=== PATIENT | female | born 1935 | race Caucasian/White ===

== ENCOUNTER 2016-05-20 14:59 | Inpatient (IN) | payer OTHER ==
[2016-05-20] MEDS ORDERED: ALBUTEROL SO4 2.5/IPRATROPIUM 0.5 INH SOL 3 ML VIAL.NEB. NEB ONE ×2 (15:08→15:27)
[2016-05-20] MEDS ORDERED: MAGNESIUM SULF 50% (8.12 MEQ/2 ML-1 GM VIAL) ONE (15:08)
[2016-05-20] MEDS ORDERED: DEXAMETHASONE SOD PHOSPHATE 10 MG/1 ML VIAL ONE (15:16)
--- NOTE | 2016-05-20 15:19 | PDOC ---
History of Present Illness - General History Source: Patient Exam Limitations: No Limitations - History of Present Illness Initial Comments: 05/20/16 15:20 The patient is a 80 year old female, BIBA with a significant past medical history of asthma, cardiac stents, COPD, CHF, HTN, pacemaker, and afib, who presents to the emergency department with SOB. The EMS reports giving the patient one treatment of decadron en route to the hospital. She reports her SOB is often made worse with strenuous activity or when lying down flat. She also has chief complaints of dry cough. She denies recent fevers, chills, headache or dizziness. She denies recent nausea, vomit, diarrhea or constipation. She denies recent dysuria, frequency, urgency or hematuria. She denies recent chest pain. Allergies: Melatonin. See nursing notes. Past surgical history: See HPI. Appendectomy. Social history: Nonsmoker. Denies EtOH use and drug use. Primary Care Physician: <Stefano Villalpando - Last Filed: 05/20/16 16:42> - General History Source: Patient, EMS, Old Records Exam Limitations: Clinical Condition <KierrastevenIsa - Last Filed: 05/20/16 16:51> - General Stated Complaint: SOB Time Seen by Provider: 05/20/16 15:19 Past History <Stefano Villalpando - Last Filed: 05/20/16 16:42> - Past Medical History Anemia: Yes Asthma: Yes Cancer: Yes (esophageal) Cardiac Disorders: Yes (pacemaker,stents, afib) CVA: No COPD: Yes CHF: Yes Dementia: No Diabetes: No GI Disorders: Yes (REFLUX, gastric ulcers, GERD) Disorders: Yes (URINARY DRIBBLING) HTN: Yes Hypercholesterolemia: Yes Liver Disease: No Suicide Attempt (Hx): No Seizures: No Thyroid Disease: No - Surgical History Abdominal Surgery: Yes Appendectomy: Yes Cardiac Surgery: Yes (PACEMAKER 2010, stents) Cholecystectomy: No Lung Surgery: No Neurologic Surgery: No Orthopedic Surgery: No - Immunization History Td Vaccination: Yes Immunization Up to Date: Yes - Psycho/Social/Smoking Cessation Hx Anxiety: No Suicidal Ideation: No Smoking Status: No Smoking History: Former smoker Have you smoked in the past 12 months: No Number of Cigarettes Smoked Daily: 0 If you are a former smoker, when did you quit?: 2002 'Breaking Loose' booklet given: 12/11/13 Hx Alcohol Use: No Drug/Substance Use Hx: No Substance Use Type: None Hx Substance Use Treatment: No <Isa Jacob - Last Filed: 05/20/16 16:51> - Past Medical History Allergies/Adverse Reactions: Allergies Allergy/AdvReac Type Severity Reaction Status Date / Time melatonin Allergy Mild Nausea Verified 05/20/16 15:33 vancomycin AdvReac Mild Nausea Verified 05/20/16 15:33 zolpidem AdvReac Unknown Verified 05/20/16 15:33 zolpidem tartrate AdvReac Unknown Verified 05/20/16 15:33 [From Ambien] Home Medications: Ambulatory Orders Atorvastatin Ca [Lipitor] 10 mg PO HS 12/11/13 Digoxin [Digitek] 125 mcg PO DAILY 03/17/15 Diltiazem Cd [Cardizem Cd -] 180 mg PO DAILY 03/17/15 Hydralazine HCl [Apresoline -] 25 mg PO BID 03/17/15 Metoprolol Tartrate [Lopressor -] 25 mg PO DAILY 03/17/15 Sucralfate Oral Suspension [Carafate Oral Suspension -] 1 gm PO HS 03/17/15 Tiotropium [place] [Spiriva] 1 inh PO DAILY 03/17/15 Valsartan [Diovan] 320 mg PO DAILY 03/17/15 Budesonide/Formeterol Fumarate [SYMBICORT 160/4.5mcg -] 2 puff IH BID #1 inhaler 03/28/15 Furosemide [Lasix -] 40 mg PO BID #60 tablet 04/20/15 Magnesium Oxide [Mag-Ox -] 400 mg PO BID tablet 04/20/15 Metronidazole [Flagyl -] 500 mg PO TID 18 Days 04/20/15 Warfarin Na [Coumadin -] 1 mg PO DAILY@1800 tablet 04/20/15 Oxycodone HCl 5 mg PO Q6H #10 capsule MDD 4 07/27/15 Review of Systems - Review of Systems Able to Perform ROS?: Yes Comments:: 05/20/16 15:20 CONSTITUTIONAL: Absent: fever, no chills, no fatigue EYES: Absent: visual changes ENT: Absent: ear pain, no sore throat CARDIOVASCULAR: Absent: chest pain, no palpitations RESPIRATORY: + SOB and cough GI: Absent: abdominal pain, no nausea, no vomiting, no constipation, no diarrhea GENITOURINARY: Absent: dysuria, no frequency, no hematuria MUSKULOSKELETAL: Absent: back pain, no arthralgia, no myalgia SKIN: Absent: rash NEURO: Absent: headache <Stefano Villalpando - Last Filed: 05/20/16 16:42> *Physical Exam - Physical Exam Comments: 05/20/16 15:20 GENERAL: Well developed, well nourished. Awake and alert. No acute distress. HEENT: Normocephalic, atraumatic. PERRLA, EOMI. No conjunctival pallor. Sclera are non- icteric. Moist mucous membranes. Oropharynx is clear. NECK: Supple. Full ROM. No JVD. Carotid pulses 2+ and symmetric, without bruits. No thyromegaly. No lymphadenopathy. CARDIOVASCULAR: Regular rate and rhythm. No murmurs, rubs, or gallops. Distal pulses are 2+ and symmetric. PULMONARY: Accessory muscle use. In moderate respiratory distress. Fair air movement with expiratory wheezes in the bilateral lung dangelo. ABDOMINAL: Soft. Non-tender. Non-distended. No rebound or guarding. No organomegaly. Normoactive bowel sounds. MUSCULOSKELETAL Normal range of motion at all joints. No bony deformities or tenderness. No CVA tenderness. EXTREMITIES: No cyanosis. No clubbing. No edema. No calf tenderness. SKIN: Warm and dry. Normal capillary refill. No rashes. No jaundice. NEUROLOGICAL: Alert, awake, appropriate. Cranial nerves 2-12 intact. No deficits to light touch and temperature in face, upper extremities and lower extremities. No motor deficits in the in face, upper extremities and lower extremities. Normoreflexic in the upper and lower extremities. Normal speech. Toes are down- going bilaterally. Gait is normal without ataxia. PSYCHIATRIC: Cooperative. Good eye contact. Appropriate mood and affect. <Stefano Villalpando - Last Filed: 05/20/16 16:42> ED Treatment Course - LABORATORY CBC & Chemistry Diagram: 05/20/16 15:22 05/20/16 15:22 <Stefano Villalpando - Last Filed: 05/20/16 16:42> - LABORATORY CBC & Chemistry Diagram: 05/20/16 15:22 05/20/16 15:22 <Isa Jacob - Last Filed: 05/20/16 16:51> Medical Decision Making - Critical Care Time Total Critical Care Time (minutes): 30 Critical Care Statement: The care of this patient involved high complexity decision making to prevent further life threatening deterioration of the patient 's condition and/or to evalute & treat vital organ system(s) failure or risk of failure. <Stefano Villalpando - Last Filed: 05/20/16 16:42> - Medical Decision Making 05/20/16 15:25 80-year-old female with history of atrial fibrillation, pacemaker, on Coumadin, COPD, hypertension, CHF presents to the emergency department by EMS with complaints of shortness of breath since 4 AM this morning. The patient is in moderate respiratory distress with accessory muscle use and is speaking and abrupt 2-3 word sentences. Differential diagnosis includes but is not limited to : COPD exacerbation, CHF exacerbation, pneumonia, influenza, anemia, electrolyte abnormality, toxic/metabolic derangement, ACS. Plan: 1. The patient was placed on BiPAP for respiratory support 2. DuoNeb treatments 3. The patient received steroids in the field therefore will not give steroids in the emergency department 4. Magnesium sulfate 2 g IV 5. EKG 6. Chest x-ray 7. Eng culture 8. Observe and reevaluate 05/20/16 16:48 Addendum: The labs were reviewed and are noted in the EMR. CXR appears to be negative. Her temp was 10F orally. The plan is to admit to tele. Will send blood Cx and will give a dose of abx. <Isa Jacob - Last Filed: 05/20/16 16:51> *DC/Admit/Observation/Transfer - Attestations Scribe Attestion: 05/20/16 15:20 Documentation prepared by Stefano Villalpando, acting as medical interpreter for Isa Jacob MD. <Stefano Villalpando - Last Filed: 05/20/16 16:42> - Discharge Dispostion Admit: Yes - Attestations Physician Attestion: 05/20/16 15:25 I, Dr. Isa Jacob, attest that the scribes documentation that appears above has been prepared under my direction and personally reviewed by me in its entirety. I confirmed that the note above accurately reflects all work, treatment, procedures, and medical decision-making performed by me. <Isa Jacob - Last Filed: 05/20/16 16:51> Diagnosis at time of Disposition: Shortness of breath, COPD (chronic obstructive pulmonary disease) - Discharge Dispostion Condition at time of disposition: Stable - Referrals Referrals: Jeffery Byrd [Primary Care Provider] -
[2016-05-20] MEDS ORDERED: MAGNESIUM SULF 50% (8.12 MEQ/2 ML-1 GM VIAL) IVPB ONE (15:20)
[2016-05-20 15:32] LABS: BASOPHIL 0.5 % (0-2.0); EOSINOPHIL 0.4 % (0-4.5); MCH 30.2 pg (25.7-33.7); MEAN CELL VOLUME 91.5 fl (80-96); MEAN PLT VOLUME 8.9 fl (7.5-11.1); NEUTROPHILS 74.4 % (42.8-82.8); PLATELET COUNT 230 K/MM3 (134-434); RDW 15.2 % (11.6-15.6); WHITE BLOOD COUNT 12.9 K/mm3 (4.0-10.0)
[2016-05-20] MEDS: ALBUTEROL SO4 2.5/IPRATROPIUM 0.5 INH SOL 3 ML VIAL.NEB. NEB SCH ×4 (15:36→23:50)
[2016-05-20 15:44] LABS: INR 1.88 (0.82-1.09); PROTHROMBIN TIME (PATIENT) 20.9 SEC (9.98-11.88)
[2016-05-20 15:49] LABS: ARTERIAL BLD GAS O2 SATURATION 99.9 % (90-98.9); ARTERIAL BLOOD GAS BASE EXCESS 1.7 meq/l (-2-2); ARTERIAL BLOOD GAS HCO3 24.8 meq/L (22-26)
[2016-05-20 15:50] LABS: ALLENS TEST POSITIVE; ART PUNCT SITE LEFT RADIAL; LPM/O2% 30%; PT. ON O2? YES
[2016-05-20 15:51] LABS: MECH. VENT. BIPAP; TYPE OF O2 BIPAP; VENT RATE 12
[2016-05-20 15:52] LABS: ARTERIAL BLOOD GAS pH 7.46 (7.35-7.45)
[2016-05-20 15:53] LABS: METHEMOGLOBIN 0.2 % (0.4-1.5)
[2016-05-20 15:56] LABS: ALBUMIN 3.6 g/dl (3.4-5.0); BILIRUBIN,TOTAL 0.6 mg/dL (0.2-1.0); CALCIUM 8.5 mg/dL (8.5-10.1); CREATININE 1.2 mg/dL (0.55-1.02); TOT PROT 7.1 g/dl (6.4-8.2)
[2016-05-20 15:57] LABS: TROPONIN I < 0.02 ng/ml (0.00-0.05)
[2016-05-20 16:01] VITALS: BMI 24.7
[2016-05-20] MEDS ORDERED: LEVOFLOXACIN 750 MG IVPB 150 ML IVPB ONE ×2 (16:52→17:54)
--- NOTE | 2016-05-20 17:53 | HP ---
CHIEF COMPLAINT: Shortness of breath PCP: Dr. Larson HISTORY OF PRESENT ILLNESS: 78 year-old female with a PMH of HTN, HLD, CAD, tachy/maricruz syndrome s/p PPM, afib on coumadin, PAD s/p RLE bypass, asthma/COPD, PUD, GERD, recent c.diff, esophageal cancer s/p laser therapy, and anxiety. Patient reports being SOB and with a dry cough x 1 month. She attributes this to a pharmacy change in her inhalers which she feels are not effective. Patient had a sudden worsening of her SOB at 4am today when she awoke from sleep. She tried her inhalers but got not relief. She activated EMS who gave her a dose of decadron in the field. Patient denies fever, sweats, chills. She denies n/v/d/c. She denies chest pain , palpitations, orthopnea, and lower extremity edema. ER course was notable for: (1) Tm 100.0, BP 163/98, p88, RR 40 (2) WBC 12.9k, cough with thick yellow sputum (3) BIPAP, duonebs, steroids given by EMS, Mg 2g x 1 Recent Travel: No PAST MEDICAL HISTORY: Hypertension Hyperlipidemia Coronary artery disease Diastolic heart failure Atrial fibrillation on coumadin Tachy/maricruz syndrome s/p PPM Peripheral arterial disease s/p RLE bypass Esophageal cancer s/p laser treatment C. diff Anxiety PAST SURGICAL HISTORY: Appendectomy Hysterectomy Permanent Pacemaker Social History: Smoking: former Alcohol: no Drugs: no Family History: non-contributory Allergies melatonin Allergy (Mild, Verified 05/20/16 15:33) Nausea doesn't agree with me vancomycin Adverse Reaction (Mild, Verified 05/20/16 15:33) Nausea zolpidem Adverse Reaction (Unknown, Verified 05/20/16 15:33) zolpidem tartrate [From Ambien] Adverse Reaction (Unknown, Verified 05/20/16 15: 33) Home Medications Medication Instructions Recorded Atorvastatin Ca [Lipitor] 10 mg PO HS 12/11/13 Digoxin [Digitek] 125 mcg PO DAILY 03/17/15 Diltiazem Cd [Cardizem Cd -] 180 mg PO DAILY 03/17/15 Hydralazine HCl [Apresoline -] 25 mg PO BID 03/17/15 Metoprolol Tartrate [Lopressor -] 25 mg PO DAILY 03/17/15 Sucralfate Oral Suspension 1 gm PO HS 03/17/15 [Carafate Oral Suspension -] Tiotropium [place] [Spiriva] 1 inh PO DAILY 03/17/15 Valsartan [Diovan] 320 mg PO DAILY 03/17/15 Budesonide/Formeterol Fumarate 2 puff IH BID #1 inhaler 03/28/15 [SYMBICORT 160/4.5mcg -] Furosemide [Lasix -] 40 mg PO BID #60 tablet 04/20/15 Magnesium Oxide [Mag-Ox -] 400 mg PO BID tablet 04/20/15 Metronidazole [Flagyl -] 500 mg PO TID 18 Days 04/20/15 Warfarin Na [Coumadin -] 1 mg PO DAILY@1800 tablet 04/20/15 Oxycodone HCl 5 mg PO Q6H #10 capsule MDD 4 07/27/15 REVIEW OF SYSTEMS CONSTITUTIONAL: Absent: fever, chills, diaphoresis, generalized weakness, malaise, loss of appetite, weight change HEENT: Absent: rhinorrhea, nasal congestion, throat pain, throat swelling, difficulty swallowing, mouth swelling, ear pain, eye pain, visual changes CARDIOVASCULAR: Absent: chest pain, syncope, palpitations, irregular heart rate, lightheadedness , peripheral edema RESPIRATORY: Present: cough with thick yellow sputum, SOB Absent: dyspnea with exertion, orthopnea, wheezing, stridor, hemoptysis GASTROINTESTINAL: Absent: abdominal pain, abdominal distension, nausea, vomiting, diarrhea, constipation, melena, hematochezia GENITOURINARY: Absent: dysuria, frequency, urgency, hesitancy, hematuria, flank pain, genital pain MUSCULOSKELETAL: Absent: myalgia, arthralgia, joint swelling, back pain, neck pain SKIN: Absent: rash, itching, pallor HEMATOLOGIC/IMMUNOLOGIC: Absent: easy bleeding, easy bruising, lymphadenopathy, frequent infections ENDOCRINE: Absent: unexplained weight gain, unexplained weight loss, heat intolerance, cold intolerance NEUROLOGIC: Absent: headache, focal weakness or paresthesias, dizziness, unsteady gait, seizure, mental status changes, bladder or bowel incontinence PSYCHIATRIC: Absent: anxiety, depression, suicidal or homicidal ideation, hallucinations. PHYSICAL EXAMINATION GENERAL: Awake, alert, and fully oriented, in no acute distress. HEAD: Normal with no signs of trauma. EYES: Pupils equal, round and reactive to light, extraocular movements intact, sclera anicteric, conjunctiva clear. No lid lag. EARS, NOSE, THROAT: Ears normal, nares patent, oropharynx clear without exudates. Moist mucous membranes. NECK: Normal range of motion, supple without lymphadenopathy, JVD, or masses. LUNGS: Mild wheezing LLL; bibasilar crackles; + accessory muscle use. HEART: Irregular, S1 and S2 without murmur, rub or gallop. ABDOMEN: Soft, nontender, not distended, normoactive bowel sounds, no guarding, no rebound, no masses. No hepatomegaly or splenomegaly. MUSCULOSKELETAL: Normal range of motion at all joints. No bony deformities or tenderness. No CVA tenderness. UPPER EXTREMITIES: 2+ pulses, warm, well-perfused. No cyanosis. No clubbing. No peripheral edema. LOWER EXTREMITIES: 2+ pulses, warm, well-perfused. No calf tenderness. No peripheral edema. NEUROLOGICAL: Cranial nerves II-XII intact. Normal speech. Laboratory Results - last 24 hr 05/20/16 05/20/16 05/20/16 15:22 15:22 15:22 WBC 12.9 H D RBC 3.44 L Hgb 10.4 L Hct 31.5 L MCV 91.5 MCHC 33.0 RDW 15.2 Plt Count 230 D MPV 8.9 D Neutrophils % 74.4 D Lymphocytes % 13.8 Monocytes % 10.9 H Eosinophils % 0.4 Basophils % 0.5 D INR PTT (Actin FS) 34.4 D Puncture Site ABG pH ABG pCO2 at Pt Temp ABG pO2 at Pt Temp ABG HCO3 ABG O2 Sat (Measured) ABG O2 Content ABG Base Excess Gil Test Carboxyhemoglobin Methemoglobin O2 Delivery Device Oxygen Flow Rate Vent Mode Vent Rate Mechanical Rate PEEP Pressure Support Vent Sodium 139 Potassium 3.8 Chloride 101 Carbon Dioxide 28 D Anion Gap 10 BUN 19 H D Creatinine 1.2 H D Creat Clearance w eGFR 43.23 Random Glucose 129 H D Lactic Acid Calcium 8.5 Total Bilirubin 0.6 AST 26 D ALT 27 D Alkaline Phosphatase 90 D Creatine Kinase Troponin I Total Protein 7.1 D Albumin 3.6 D Urine Color Urine Appearance Urine pH Ur Specific [place] Urine Protein Urine Glucose (UA) Urine Ketones Urine Blood Urine Nitrite Urine Bilirubin Urine Urobilinogen Ur Leukocyte Esterase Urine RBC Urine WBC Ur Epithelial Cells Hyaline Casts Urine Mucus Blood Type Antibody Screen 05/20/16 05/20/16 05/20/16 15:22 15:22 15:22 WBC RBC Hgb Hct MCV MCHC RDW Plt Count MPV Neutrophils % Lymphocytes % Monocytes % Eosinophils % Basophils % INR 1.88 H PTT (Actin FS) Puncture Site ABG pH ABG pCO2 at Pt Temp ABG pO2 at Pt Temp ABG HCO3 ABG O2 Sat (Measured) ABG O2 Content ABG Base Excess Gil Test Carboxyhemoglobin Methemoglobin O2 Delivery Device Oxygen Flow Rate Vent Mode Vent Rate Mechanical Rate PEEP Pressure Support Vent Sodium Potassium Chloride Carbon Dioxide Anion Gap BUN Creatinine Creat Clearance w eGFR Random Glucose Lactic Acid 0.983 Calcium Total Bilirubin AST ALT Alkaline Phosphatase Creatine Kinase 115 Troponin I < 0.02 Total Protein Albumin Urine Color Urine Appearance Urine pH Ur Specific [place] Urine Protein Urine Glucose (UA) Urine Ketones Urine Blood Urine Nitrite Urine Bilirubin Urine Urobilinogen Ur Leukocyte Esterase Urine RBC Urine WBC Ur Epithelial Cells Hyaline Casts Urine Mucus Blood Type Antibody Screen 05/20/16 05/20/16 05/20/16 15:22 15:42 15:42 WBC RBC Hgb Hct MCV MCHC RDW Plt Count MPV Neutrophils % Lymphocytes % Monocytes % Eosinophils % Basophils % INR PTT (Actin FS) Puncture Site Left radial ABG pH 7.46 H ABG pCO2 at Pt Temp 35.1 ABG pO2 at Pt Temp 160.0 H* D ABG HCO3 24.8 ABG O2 Sat (Measured) 99.9 H* ABG O2 Content 13.8 L ABG Base Excess 1.7 Gil Test Positive Carboxyhemoglobin 1.9 Methemoglobin 0.2 L O2 Delivery Device Bipap Oxygen Flow Rate 30% Vent Mode S/t Vent Rate 12 Mechanical Rate Bipap PEEP 0.0 Pressure Support Vent 10/5 Sodium Potassium Chloride Carbon Dioxide Anion Gap BUN Creatinine Creat Clearance w eGFR Random Glucose Lactic Acid Calcium Total Bilirubin AST ALT Alkaline Phosphatase Creatine Kinase Troponin I Total Protein Albumin Urine Color Urine Appearance Urine pH Ur Specific [place] Urine Protein Urine Glucose (UA) Urine Ketones Urine Blood Urine Nitrite Urine Bilirubin Urine Urobilinogen Ur Leukocyte Esterase Urine RBC Urine WBC Ur Epithelial Cells Hyaline Casts Urine Mucus Blood Type A POSITIVE Antibody Screen Negative 05/20/16 05/20/16 18:31 18:40 WBC RBC Hgb Hct MCV MCHC RDW Plt Count MPV Neutrophils % Lymphocytes % Monocytes % Eosinophils % Basophils % INR PTT (Actin FS) Puncture Site ABG pH ABG pCO2 at Pt Temp ABG pO2 at Pt Temp ABG HCO3 ABG O2 Sat (Measured) ABG O2 Content ABG Base Excess Gil Test Carboxyhemoglobin Methemoglobin O2 Delivery Device Oxygen Flow Rate Vent Mode Vent Rate Mechanical Rate PEEP Pressure Support Vent Sodium Potassium Chloride Carbon Dioxide Anion Gap BUN Creatinine Creat Clearance w eGFR Random Glucose Lactic Acid 2.251 H* Calcium Total Bilirubin AST ALT Alkaline Phosphatase Creatine Kinase Troponin I Total Protein Albumin Urine Color Ltyellow Urine Appearance Clear Urine pH 5.0 Ur Specific [place] 1.013 Urine Protein 1+ H Urine Glucose (UA) Negative Urine Ketones Negative Urine Blood Negative Urine Nitrite Negative Urine Bilirubin Negative Urine Urobilinogen Negative Ur Leukocyte Esterase Negative Urine RBC 4 Urine WBC 2 Ur Epithelial Cells Rare Hyaline Casts 88 Urine Mucus Rare Blood Type Antibody Screen 03/24/15 Echo: LV normal; RV normal; ANKITA; mild MR; mild TR; mild pHTN ASSESSMENT/PLAN: 78 year-old female with a PMH of HTN, HLD, CAD, diastolic heart failure, tachy/ maricruz syndrome s/p PPM, afib on coumadin, PAD s/p RLE bypass, asthma/COPD, PUD, GERD, recent c.diff, esophageal cancer s/p laser therapy, and anxiety. Admitted for shortness of breath, orthopnea, non-productive cough. Sepsis of uncertain etiology Lactic acidosis --low grade fever, WBC 12.9, RR 40, lactic acid 2.2 --CXR discussed with Dr. Mooney, no obvious infiltrate; no overt pulmonary congestion, mild Love-B lines --cannot give macrolides since patient on digoxin --continue levofloxacin but very close monitoring of INR since patient on warfarin --very gentle fluids to address lactic acidosis --titrate O2 to 88-->92%; satting 95% on 3LNC COPD exacerbation --PaCO2 35 on BIPAP; continue BIPAP PRN --continue Symbicort, Tudorza --duonebs QID --Dr. Rivera is regular director loss prevention, consult requested Acute on chronic diastolic heart failure --hold diuretics due to sepsis, lactic acidosis Atrial fibrillation --rate controlled continue metoprolol, digoxin, diltiazem --INR slightly subtherapeutic on current coumadin dosing, repeat in am --dig level pending Hypertension --continue Valsartan, metoprolol, diltiazem, digoxin, hydralazine Tachy/maricruz syndrome s/p PPM --telemetry monitoring Hyperlipidemia --continue Lipitor Peripheral arterial disease s/p RLE bypass --stable CAD --equivocal MIBI in 2011 --no angina Peptic ulcer disease GERD --stable DVT prophylaxis: on coumadin Visit type - Emergency Visit Emergency Visit: Yes ED Registration Date: 05/20/16 Care time: The patient presented to the Emergency Department on the above date and was hospitalized for further evaluation of their emergent condition. - New Patient This patient is new to me today: Yes Date on this admission: 05/20/16 - Critical Care Critical Care patient: No
[2016-05-20 18:52] LABS: URINE APPEARANCE CLEAR; URINE BILIRUBIN NEGATIVE (NEGATIVE); URINE BLOOD NEGATIVE (NEGATIVE); URINE COLOR LTYELLOW; URINE GLUCOSE (UA) NEGATIVE (NEGATIVE); URINE KETONE NEGATIVE (NEGATIVE); URINE LEUK ESTERASE NEGATIVE (NEGATIVE); URINE NITRITE NEGATIVE (NEGATIVE); URINE PROTEIN 1+ (NEGATIVE); URINE UROBILINOGEN NEGATIVE E.U./dl (0.2-1.0)
[2016-05-20 18:55] LABS: URINE HYALINE CAST 88 /lpf; URINE MUCUS RARE; URINE RBC 4 /hpf (0-3); URINE WBC 2 /hpf (3-5)
[2016-05-20] MEDS ORDERED: FUROSEMIDE 40 MG TABLET (FP) PO SCH (22:00)
[2016-05-20] MEDS ORDERED: SODIUM CHLORIDE 1,000 ML IV SCH ×2 (22:00→22:34)
[2016-05-20] MEDS: SUCRALFATE 1 GM/10 ML UNIT DOSE CUPS PO SCH (23:35)
[2016-05-20] MEDS: hydrALAZINE HCL 25 MG TABLET (FP) PO SCH (23:41)
[2016-05-20] MEDS: BUDESONIDE/FORMETEROL FUMARATE 160/4.5 mcg INHALER IH SCH (23:42)
[2016-05-20] MEDS: ACLIDINIUM BROMIDE 400 MCG/INH AERO.POWD IH SCH (23:42)
[2016-05-20] MEDS: HEPARIN NA (PORCINE) 5,000 UNITS/ML 1ML VIAL SQ SCH (23:42)
[2016-05-20] MEDS: ATORVASTATIN CA 10 MG TABLET (FP) PO SCH (23:42)
[2016-05-21] MEDS: ALBUTEROL SO4 2.5/IPRATROPIUM 0.5 INH SOL 3 ML VIAL.NEB. NEB SCH ×4 (06:40→23:52)
[2016-05-21 07:02] LABS: BASOPHIL 0.2 % (0-2.0); MCH 30.6 pg (25.7-33.7); MCHC 33.2 g/dl (32.0-36.0); MEAN CELL VOLUME 92.3 fl (80-96); MEAN PLT VOLUME 9.4 fl (7.5-11.1); PLATELET COUNT 208 K/MM3 (134-434); RDW 15.4 % (11.6-15.6); WHITE BLOOD COUNT 5.9 K/mm3 (4.0-10.0)
[2016-05-21 07:14] LABS: ALBUMIN 3.2 g/dl (3.4-5.0); ANION GAP 10 (8-16); CALCIUM 8.4 mg/dL (8.5-10.1); CO2 27 mmol/L (21-32); CREATININE 1.2 mg/dL (0.55-1.02); GLUCOSE,RANDOM 149 mg/dL (74-106); MAGNESIUM 2.9 mg/dL (1.8-2.4); PHOSPHOROUS 3.8 mg/dL (2.5-4.9); SGOT/AST 24 U/L (15-37); SGPT/ALT 24 U/L (12-78)
[2016-05-21 07:27] LABS: ALK PHOS 77 U/L (45-117); BILIRUBIN,TOTAL 0.4 mg/dL (0.2-1.0); DIGOXIN LEVEL 1.3419 ng/ml (0.8-2.0); TOT PROT 6.7 g/dl (6.4-8.2)
[2016-05-21 07:37] LABS: INR 2.01 (0.82-1.09); PROTHROMBIN TIME (PATIENT) 22.4 SEC (9.98-11.88)
[2016-05-21 09:10] LABS: ALLENS TEST POSITIVE; ART PUNCT SITE RIGHT RADIAL; ARTERIAL BLD GAS O2 SATURATION 95.6 % (90-98.9); ARTERIAL BLOOD GAS BASE EXCESS 1.8 meq/l (-2-2); ARTERIAL BLOOD GAS HCO3 25.7 meq/L (22-26); ARTERIAL BLOOD GAS PO2 76.4 mmHg (68-100); LPM/O2% 2L; PT. ON O2? YES; TYPE OF O2 NASAL O2
[2016-05-21 09:11] LABS: ARTERIAL BLOOD GAS pH 7.43 (7.35-7.45)
[2016-05-21] MEDS: methylPREDNISolone NA SUCC 40 MG/1 ML VIAL IVPB SCH ×3 (09:24→20:56)
[2016-05-21] MEDS: HEPARIN NA (PORCINE) 5,000 UNITS/ML 1ML VIAL SQ SCH ×2 (09:25→21:09)
[2016-05-21] MEDS: oxyCODONE HCL 5 MG TABLET PO PRN ×2 (09:25→20:55)
[2016-05-21] MEDS: VALSARTAN 160 MG TABLET (UD) PO SCH (09:26)
[2016-05-21] MEDS: DIGOXIN 0.125 MG TABLET (FP) PO SCH (09:27)
[2016-05-21] MEDS: hydrALAZINE HCL 25 MG TABLET (FP) PO SCH ×2 (09:27→21:09)
[2016-05-21] MEDS: METOPROLOL TARTRATE 25 MG TABLET (FP) PO SCH (09:27)
[2016-05-21] MEDS: CEFTRIAXONE 50 ML IVPB SCH (09:27)
[2016-05-21] MEDS: BUDESONIDE/FORMETEROL FUMARATE 160/4.5 mcg INHALER IH SCH ×2 (09:28→21:11)
[2016-05-21] MEDS: ACLIDINIUM BROMIDE 400 MCG/INH AERO.POWD IH SCH (09:28)
[2016-05-21] MEDS ORDERED: LEVOFLOXACIN 750 MG IVPB 150 ML IVPB ONE ×2 (10:00)
[2016-05-21] MEDS ORDERED: FUROSEMIDE 40 MG/4 ML INJECTABLE VIAL IVPUSH SCH (10:00)
--- NOTE | 2016-05-21 11:05 | CON.CARD ---
Cardiology Consult (text) - Consultation Consultation Note: cc: sob hpi: 80 f hx afib on coumadin, htn, hld, tachy/maricruz syndrome s/p ppm, copd, pad s/p rle bypass, possible cad (equivocal MIBI), chronic sob/briones/palps likely related to anxiety, esophageal ca s/p laser treatment, here with sob. Past few days has noticed sob, tried her inhalers at home but sob worse so came to ER. Also with body aches including some central cp worse with deep breaths and coughing. Has been coughing up yellow sputum as well. No palps, dizzy, loc, pnd, orthopnea, le edema. After treating for copd feeling a little better today. Sees Dr Torres for Cardio. pmh/psh: per hpi, ppm ros: per hpi; no fever, nvd, morton, vision changes, gib, hematuria, nasal congestion social: no tob fam: nc meds: Home Medications Medication Instructions Recorded Atorvastatin Ca [Lipitor] 10 mg PO HS 12/11/13 Digoxin [Digitek] 125 mcg PO DAILY 03/17/15 Diltiazem Cd [Cardizem Cd -] 180 mg PO DAILY 03/17/15 Hydralazine HCl [Apresoline -] 25 mg PO BID 03/17/15 Metoprolol Tartrate [Lopressor -] 25 mg PO DAILY 03/17/15 Valsartan [Diovan] 320 mg PO DAILY 03/17/15 Furosemide [Lasix -] 40 mg PO BID #60 tablet 04/20/15 Magnesium Oxide [Mag-Ox -] 400 mg PO BID tablet 04/20/15 Warfarin Na [Coumadin -] 1 mg PO DAILY@1800 tablet 04/20/15 Sertraline HCl [Zoloft -] 25 mg PO DAILY 05/20/16 pe: Vital Signs Period Temp Pulse Resp BP Sys/Wahl Pulse Ox Last 24 Hr 97.8 F-100.0 F 70-94 16-40 104-163/52-98 90-100 nad, no jvd rrr s1s2 no mrg mild exp wheezing, dec air movement, nl eff aaox3 no le e/c/c no diaphoresis/jaundice pos dp/pt abd nt nd pos bs Laboratory Last Values WBC 5.9 K/mm3 (4.0-10.0) D 05/21/16 06:00 RBC 3.22 M/mm3 (3.60-5.2) L 05/21/16 06:00 Hgb 9.9 GM/dL (10.7-15.3) L 05/21/16 06:00 Hct 29.7 % (32.4-45.2) L 05/21/16 06:00 MCV 92.3 fl (80-96) 05/21/16 06:00 MCHC 33.2 g/dl (32.0-36.0) 05/21/16 06:00 RDW 15.4 % (11.6-15.6) 05/21/16 06:00 Plt Count 208 K/MM3 (134-434) 05/21/16 06:00 MPV 9.4 fl (7.5-11.1) 05/21/16 06:00 Neutrophils % 92.0 % (42.8-82.8) H D 05/21/16 06:00 Lymphocytes % 4.3 % (8-40) L D 05/21/16 06:00 Monocytes % 3.5 % (3.8-10.2) L 05/21/16 06:00 Eosinophils % 0.0 % (0-4.5) D 05/21/16 06:00 Basophils % 0.2 % (0-2.0) 05/21/16 06:00 INR 2.01 (0.82-1.09) H 05/21/16 06:00 PTT (Actin FS) 34.4 SECONDS (26.9-34.4) D 05/20/16 15:22 Puncture Site Right radial 05/21/16 08:58 ABG pH 7.43 (7.35-7.45) 05/21/16 08:58 ABG pCO2 at Pt Temp 39.8 mmHg (35-45) 05/21/16 08:58 ABG pO2 at Pt Temp 76.4 mmHg (68-100) D 05/21/16 08:58 ABG HCO3 25.7 meq/L (22-26) 05/21/16 08:58 ABG O2 Sat (Measured) 95.6 % (90-98.9) 05/21/16 08:58 ABG O2 Content 14.2 % vol (15-22) L 05/21/16 08:58 ABG Base Excess 1.8 meq/l (-2-2) 05/21/16 08:58 Gli Test Positive 05/21/16 08:58 Carboxyhemoglobin 1.9 gm% (0.5-2.0) 05/20/16 15:42 Methemoglobin 0.2 % (0.4-1.5) L 05/20/16 15:42 O2 Delivery Device Nasal o2 05/21/16 08:58 Oxygen Flow Rate 2l 05/21/16 08:58 Vent Mode S/t 05/20/16 15:42 Vent Rate 12 05/20/16 15:42 Mechanical Rate Bipap 05/20/16 15:42 PEEP 0.0 cmH2O 05/20/16 15:42 Pressure Support Vent 11/1305/20/16 15:42 Sodium 137 mmol/L (136-145) 05/21/16 06:00 Potassium 4.1 mmol/L (3.5-5.1) 05/21/16 06:00 Chloride 100 mmol/L (98-107) 05/21/16 06:00 Carbon Dioxide 27 mmol/L (21-32) 05/21/16 06:00 Anion Gap 10 (8-16) 05/21/16 06:00 BUN 22 mg/dL (7-18) H 05/21/16 06:00 Creatinine 1.2 mg/dL (0.55-1.02) H 05/21/16 06:00 Creat Clearance w eGFR 43.23 (>60) 05/21/16 06:00 Random Glucose 149 mg/dL (74-106) H 05/21/16 06:00 Lactic Acid 0.973 mmol/L (0.4-2.0) 05/21/16 06:00 Calcium 8.4 mg/dL (8.5-10.1) L 05/21/16 06:00 Phosphorus 3.8 mg/dL (2.5-4.9) D 05/21/16 06:00 Magnesium 2.9 mg/dL (1.8-2.4) H D 05/21/16 06:00 Total Bilirubin 0.4 mg/dL (0.2-1.0) D 05/21/16 06:00 AST 24 U/L (15-37) 05/21/16 06:00 ALT 24 U/L (12-78) 05/21/16 06:00 Alkaline Phosphatase 77 U/L (45-117) 05/21/16 06:00 Creatine Kinase 115 IU/L (26-192) 05/20/16 15:22 Troponin I < 0.02 ng/ml (0.00-0.05) 05/21/16 00:51 Total Protein 6.7 g/dl (6.4-8.2) 05/21/16 06:00 Albumin 3.2 g/dl (3.4-5.0) L 05/21/16 06:00 Urine Color Ltyellow 05/20/16 18:40 Urine Appearance Clear 05/20/16 18:40 Urine pH 5.0 (5.0-8.0) 05/20/16 18:40 Ur Specific [place] 1.013 (1.001-1.035) 05/20/16 18:40 Urine Protein 1+ (NEGATIVE) H 05/20/16 18:40 Urine Glucose (UA) Negative (NEGATIVE) 05/20/16 18:40 Urine Ketones Negative (NEGATIVE) 05/20/16 18:40 Urine Blood Negative (NEGATIVE) 05/20/16 18:40 Urine Nitrite Negative (NEGATIVE) 05/20/16 18:40 Urine Bilirubin Negative (NEGATIVE) 05/20/16 18:40 Urine Urobilinogen Negative E.U./dl (0.2-1.0) 05/20/16 18:40 Ur Leukocyte Esterase Negative (NEGATIVE) 05/20/16 18:40 Urine RBC 4 /hpf (0-3) 05/20/16 18:40 Urine WBC 2 /hpf (3-5) 05/20/16 18:40 Ur Epithelial Cells Rare /hpf (FEW) 05/20/16 18:40 Hyaline Casts 88 /lpf 05/20/16 18:40 Urine Mucus Rare 05/20/16 18:40 Digoxin 1.3419 ng/ml (0.8-2.0) 05/21/16 06:00 Blood Type A POSITIVE 05/20/16 15:22 Antibody Screen Negative 05/20/16 15:22 echo 01/2014: nl lv, nl rv, mild mr, mild tr, rvsp 43 cxr: no chf ecg 05/20/16, 05/21/16: afib, rate controlled, occ vpacing, nonspecific st-t changes tele: afib, rate ok, occ vpacing Assessment/Plan 80 f hx afib on coumadin, htn, hld, tachy/maricruz syndrome s/p ppm, copd, pad s/p rle bypass, possible cad (equivocal MIBI), chronic sob/briones/palps likely related to anxiety, esophageal ca s/p laser treatment, here with sob. sob: -current presentation seems more related to copd than chf -no signs vol overload, and dry based on bun/cr -no signs acs, ce's neg x2 -cont tx copd per pmd/pulm chronic diast CHF: -seems stable presently, dry wt in 130s -dry based on bun/cr so holding lasix for now. when cr stable resume home lasix 40 bid afib: -Rate controlled on dilt plus low dose metopr and dig (dig level ok here) -cont AC with warfarin per inr htn: -controlled on current meds tachy/maricruz syndrome s/p ppm: - Stable, cont routine outpt checks pad s/p rle bypass: -Stable, no claudication. possible cad (equivocal MIBI): -No angina, continue medical management (statin, BB, ARB...no ASA (on AC))
[2016-05-21 12:43] LABS: TROPONIN I < 0.02 ng/ml (0.00-0.05)
--- NOTE | 2016-05-21 13:00 | CON.PULM ---
Consult - History of Present Illness Chief Complaint: Shortness of breath History of Present Illness: 80 year old lady with increasing dyspnea early A.M. of admission unresponsive to albuterol. Required BiPAP in ER. Denies chest pain or palpitations. Some increase in sputum, possible fever PMH is significant for history of COPD, CAD, HTN, A. Fib on AC, PPM, PVD (S/P multiple stents in lower extremities). In 2013 pt had an episode respiratory failure requiring BIPAP and ICU monitoring but didn't require intubation. - History Source History Provided By: Patient, Medical Record Limitations to Obtaining History: No Limitations - Past Medical History Cardio/Vascular: Yes: AFIB, CAD, HTN, Hyperlipdemia Pulmonary: Yes: COPD ...: No Infectious Disease: Yes: C-Diff Musculoskeletal: Yes: Osteoarthritis - Past Surgical History Past Surgical History: Yes: Appendectomy, Hysterectomy, Permanent Pacemaker - Alcohol/Substance Use Hx Alcohol Use: No - Smoking History Smoking history: Former smoker Have you smoked in the past 12 months: No Aproximately how many cigarettes per day: 0 If you are a former smoker, when did you quit?: 2002 - Social History Usual Living Arrangement: Alone ADL: Independent History of Recent Travel: No Home Medications - Allergies Allergies/Adverse Reactions: Allergies Allergy/AdvReac Type Severity Reaction Status Date / Time melatonin Allergy Mild Nausea Verified 05/20/16 15:33 vancomycin AdvReac Mild Nausea Verified 05/20/16 15:33 zolpidem AdvReac Unknown Verified 05/20/16 15:33 zolpidem tartrate AdvReac Unknown Verified 05/20/16 15:33 [From [facility]] - Home Medications Home Medications: Ambulatory Orders Atorvastatin Ca [Lipitor] 10 mg PO HS 12/11/13 Digoxin [Digitek] 125 mcg PO DAILY 03/17/15 Diltiazem Cd [Cardizem Cd -] 180 mg PO DAILY 03/17/15 Hydralazine HCl [Apresoline -] 25 mg PO BID 03/17/15 Metoprolol Tartrate [Lopressor -] 25 mg PO DAILY 03/17/15 Valsartan [Diovan] 320 mg PO DAILY 03/17/15 Furosemide [Lasix -] 40 mg PO BID #60 tablet 04/20/15 Magnesium Oxide [Mag-Ox -] 400 mg PO BID tablet 04/20/15 Warfarin Na [Coumadin -] 1 mg PO DAILY@1800 tablet 04/20/15 Sertraline HCl [Zoloft -] 25 mg PO DAILY 05/20/16 Review of Systems - Review of Systems Constitutional: denies: Chills, Fever Cardiovascular: reports: Shortness of Breath. denies: Chest Pain, Edema, Palpitations Respiratory: reports: Cough, SOB, Wheezing. denies: Hemoptysis Gastrointestinal: denies: Abdominal Pain, Diarrhea, Vomiting Neurological: denies: Change in LOC, Confusion Physical Exam Vital Sings: Vital Signs Temperature 98.2 F 05/21/16 09:22 Pulse Rate 89 05/21/16 09:43 Respiratory Rate 22 05/21/16 09:22 Blood Pressure 148/54 05/21/16 09:22 O2 Sat by Pulse Oximetry (%) 97 05/21/16 09:43 Constitutional: Yes: Moderate Distress (secondary to dyspnea ) Eyes: No: Sclera Icterus HENT: Yes: Atraumatic, Normocephalic Neck: Yes: Supple, Trachea Midline Cardiovascular: Yes: Pulse Irregular. No: JVD Respiratory: Yes: Diminished (bilateral with scattered rhonchi at bases) ...Percussion: Yes: Hyperresonance ...Clubbing: No Gastrointestinal: Yes: Soft. No: Hepatomegaly, Splenomegaly, Tenderness Extremities: No: Calf Tenderness Edema: No Neurological: Yes: Alert, Oriented Labs: CBC, BMP 05/21/16 06:00 05/21/16 06:00 ABG Results ABG pH 7.43 (7.35-7.45) 05/21/16 08:58 ABG pCO2 at Pt Temp 39.8 mmHg (35-45) 05/21/16 08:58 ABG pO2 at Pt Temp 76.4 mmHg (68-100) D 05/21/16 08:58 ABG HCO3 25.7 meq/L (22-26) 05/21/16 08:58 ABG O2 Sat (Measured) 95.6 % (90-98.9) 05/21/16 08:58 ABG O2 Content 14.2 % vol (15-22) L 05/21/16 08:58 ABG Base Excess 1.8 meq/l (-2-2) 05/21/16 08:58 SaO2 currently 89% on 3 liters O2 by my measurement Imaging - Results Chest X-ray: Report Reviewed, Image Reviewed (JEFF, increased intersitial markings) Problem List - Problems (1) Acute exacerbation of chronic obstructive pulmonary disease (COPD) Code(s): J44.1 - CHRONIC OBSTRUCTIVE PULMONARY DISEASE W (ACUTE) EXACERBATION (2) Atrial fibrillation Code(s): I48.91 - UNSPECIFIED ATRIAL FIBRILLATION (3) CHF (congestive heart failure) Code(s): I50.9 - HEART FAILURE, UNSPECIFIED Qualifiers: Congestive heart failure type: unspecified congestive heart failure type Congestive heart failure chronicity: acute Qualified Code(s): I50.9 - Heart failure, unspecified Assessment/Plan 80 year old lady with history COPD, A.Fibrillation, and history of CHF admitted with cute dyspnea. Pt appears to hace Acute Exacerbation of COPD rather than significant CHF Suggest: IV steroids antibiotc inhaled bronchodilators O2 to maintain SaO2 >90 Cardiac medications and Warfarin BiPAP PRN Thank you for referring this patient for consultation.
[2016-05-21] MEDS: TIOTROPIUM BROMIDE 18 MCG/INH (DEVICE W/ 5 CAPSULES) IH SCH (15:08)
--- NOTE | 2016-05-21 16:54 | PN ---
Progress Note, Physician Chief Complaint: Ms Moncada says she is feeling better but still with shortness of breath. No cp or n/v. - Current Medication List Current Medications: Active Medications Albuterol/Ipratropium (Duoneb -) 1 amp NEB QIDR [facility] Last Admin: 05/21/16 10:00 Dose: 1 amp Atorvastatin Calcium (Lipitor -) 10 mg PO HS [facility] Last Admin: 05/20/16 23:42 Dose: 10 mg Budesonide/Formoterol Fumarate (Symbicort 160/4.5mcg -) 2 puff IH BID [facility] Last Admin: 05/21/16 09:28 Dose: 2 puff Digoxin (Lanoxin -) 0.125 mg PO DAILY [facility] Last Admin: 05/21/16 09:27 Dose: 0.125 mg Diltiazem HCl (Cardizem Cd -) 180 mg PO DAILY [facility] Last Admin: 05/21/16 09:27 Dose: 180 mg Heparin Sodium (Porcine) (Heparin -) 5,000 unit SQ BID [facility] Last Admin: 05/21/16 09:25 Dose: 5,000 unit Hydralazine HCl (Apresoline -) 25 mg PO BID [facility] Last Admin: 05/21/16 09:27 Dose: 25 mg Ceftriaxone Sodium (Rocephin 1gm Ivpb (Pre-Docked)) 50 mls @ 100 mls/hr IVPB DAILY [facility] Last Admin: 05/21/16 09:27 Dose: 100 mls/hr Sodium Chloride (Normal Saline -) 1,000 mls @ 50 mls/hr IV ASDIR [facility] Last Admin: 05/20/16 23:43 Dose: 50 mls/hr Methylprednisolone Sodium Succinate (Solu-Medrol -) 80 mg IVPB Q6H-IV [facility] Last Admin: 05/21/16 15:08 Dose: 80 mg Metoprolol Tartrate (Lopressor -) 25 mg PO DAILY [facility] Last Admin: 05/21/16 09:27 Dose: 25 mg Oxycodone HCl (Roxicodone -) 5 mg PO Q6H [facility] Last Admin: 05/21/16 09:25 Dose: 5 mg Sucralfate (Carafate Oral Suspension -) 1 gm PO HS [facility] Last Admin: 05/20/16 23:35 Dose: Not Given Tiotropium [place] (Spiriva -) 1 puff IH DAILY [facility] Last Admin: 05/21/16 15:08 Dose: 1 puff Valsartan (Diovan -) 320 mg PO DAILY [facility] Last Admin: 05/21/16 09:26 Dose: 320 mg Warfarin Sodium (Coumadin -) 1 mg PO DAILY@1800 [facility] - Objective Vital Signs: Vital Signs Temperature 99.2 F 05/21/16 13:54 Pulse Rate 65 05/21/16 13:54 Respiratory Rate 20 05/21/16 13:54 Blood Pressure 136/48 05/21/16 13:54 O2 Sat by Pulse Oximetry (%) 97 05/21/16 09:43 Constitutional: Yes: Well Nourished, No Distress, Calm Cardiovascular: Yes: Pulse Irregular. No: Tachycardia, Gallop, Murmur, Rub Respiratory: Yes: Regular, On Nasal O2, Rales (slight), Wheezes. No: Rhonchi Gastrointestinal: Yes: Normal Bowel Sounds, Soft. No: Distention, Tenderness Extremities: Yes: WNL Edema: No Labs: CBC, BMP 05/21/16 06:00 05/21/16 06:00 INR, PTT INR 2.01 (0.82-1.09) H 05/21/16 06:00 Problem List - Problems (1) Acute exacerbation of chronic obstructive pulmonary disease (COPD) Assessment/Plan: -patient presents with COPD exacerbation -pulmonary consulted -continue solumedrol -continue spiriva and albuterol -continue oxygen supplementation -improving Code(s): J44.1 - CHRONIC OBSTRUCTIVE PULMONARY DISEASE W (ACUTE) EXACERBATION (2) CHF (congestive heart failure) Assessment/Plan: -appreciate cardiology assistance -not in exacerbation -will stop IVF Code(s): I50.9 - HEART FAILURE, UNSPECIFIED Qualifiers: Congestive heart failure type: unspecified congestive heart failure type Congestive heart failure chronicity: acute Qualified Code(s): I50.9 - Heart failure, unspecified (3) Atrial fibrillation Assessment/Plan: -continue metoprolol, diltiazem, and digoxin -continue coumadin, therapeutic -controlled Code(s): I48.91 - UNSPECIFIED ATRIAL FIBRILLATION (4) Hyperlipidemia Assessment/Plan: -continue statin Code(s): E78.5 - HYPERLIPIDEMIA, UNSPECIFIED (5) Hypertension Assessment/Plan: -controlled -continue current management Code(s): I10 - ESSENTIAL (PRIMARY) HYPERTENSION
[2016-05-21] MEDS: WARFARIN NA 1 MG TABLET (FP) PO SCH (17:46)
[2016-05-21] MEDS: ATORVASTATIN CA 10 MG TABLET (FP) PO SCH (21:09)
[2016-05-21] MEDS: SUCRALFATE 1 GM/10 ML UNIT DOSE CUPS PO SCH (21:13)
[2016-05-22] MEDS: methylPREDNISolone NA SUCC 40 MG/1 ML VIAL IVPB SCH ×4 (02:22→21:10)
[2016-05-22] MEDS: ALBUTEROL SO4 2.5/IPRATROPIUM 0.5 INH SOL 3 ML VIAL.NEB. NEB SCH ×4 (07:01→23:42)
[2016-05-22 07:55] LABS: BASOPHIL 0.2 % (0-2.0); MCH 30.6 pg (25.7-33.7); MCHC 32.8 g/dl (32.0-36.0); MEAN CELL VOLUME 93.3 fl (80-96); MEAN PLT VOLUME 9.4 fl (7.5-11.1); NEUTROPHILS 94.8 % (42.8-82.8); PLATELET COUNT 261 K/MM3 (134-434); RDW 15.2 % (11.6-15.6); WHITE BLOOD COUNT 18.2 K/mm3 (4.0-10.0)
[2016-05-22 08:18] LABS: INR 2.15 (0.82-1.09)
[2016-05-22] MEDS: oxyCODONE HCL 5 MG TABLET PO PRN (08:23)
[2016-05-22 08:31] LABS: CALCIUM 8.9 mg/dL (8.5-10.1); MAGNESIUM 2.5 mg/dL (1.8-2.4)
[2016-05-22 08:32] LABS: COCKROFT - GAULT 37.485; CREATININE 1.2 mg/dL (0.55-1.02); PHOSPHOROUS 4.1 mg/dL (2.5-4.9)
[2016-05-22] MEDS: VALSARTAN 160 MG TABLET (UD) PO SCH (10:19)
[2016-05-22] MEDS: HEPARIN NA (PORCINE) 5,000 UNITS/ML 1ML VIAL SQ SCH ×2 (10:19→21:13)
[2016-05-22] MEDS: hydrALAZINE HCL 25 MG TABLET (FP) PO SCH ×2 (10:19→21:12)
[2016-05-22] MEDS: METOPROLOL TARTRATE 25 MG TABLET (FP) PO SCH (10:19)
[2016-05-22] MEDS: BUDESONIDE/FORMETEROL FUMARATE 160/4.5 mcg INHALER IH SCH ×2 (10:20→21:15)
[2016-05-22] MEDS: DIGOXIN 0.125 MG TABLET (FP) PO SCH (10:21)
[2016-05-22] MEDS: TIOTROPIUM BROMIDE 18 MCG/INH (DEVICE W/ 5 CAPSULES) IH SCH (10:22)
[2016-05-22] MEDS: CEFTRIAXONE 50 ML IVPB SCH (10:23)
--- NOTE | 2016-05-22 10:49 | PN ---
Progress Note (short form) - Note Progress Note: s: no cp palps dizzy; sob present but improving o: Vital Signs Period Temp Pulse Resp BP Sys/Wahl Pulse Ox Last 24 Hr 97.7 F-99.7 F 65-86 18-22 136-178/48-82 95-95 nad, no jvd rrr s1s2 no mrg mild exp wheezing, nl eff aaox3 no le e/c/c no diaphoresis/jaundice Current Medications Generic Name Dose Route Start Last Admin Trade Name Freq PRN Reason Stop Dose Admin Albuterol/Ipratropium 1 amp 05/21/16 00:00 05/22/16 07:01 Duoneb - NEB 1 amp QIDR [facility] Administration Atorvastatin Calcium 10 mg 05/20/16 22:00 05/21/16 21:09 Lipitor - PO 10 mg HS [facility] Administration Budesonide/Formoterol Fumarate 2 puff 05/20/16 22:00 05/21/16 21:11 Symbicort 160/4.5mcg - IH 2 puff BID [facility] Administration Digoxin 0.125 mg 05/21/16 10:00 05/22/16 10:21 Lanoxin - PO 0.125 mg DAILY [facility] Administration Diltiazem HCl 180 mg 05/21/16 10:00 05/22/16 10:19 Cardizem Cd - PO 180 mg DAILY [facility] Administration Furosemide 40 mg 05/22/16 14:00 Lasix - PO BID@0600,1400 [facility] Heparin Sodium (Porcine) 5,000 unit 05/20/16 22:00 05/22/16 10:19 Heparin - SQ 5,000 unit BID [facility] Administration Hydralazine HCl 25 mg 05/20/16 22:00 05/22/16 10:19 Apresoline - PO 25 mg BID [facility] Administration Ceftriaxone Sodium 50 mls @ 100 mls/hr 05/21/16 10:00 05/22/16 10:23 Rocephin 1gm Ivpb (Pre-Docked) IVPB 100 mls/hr DAILY [facility] Administration Methylprednisolone Sodium Succinate 80 mg 05/21/16 09:00 05/22/16 08:13 Solu-Medrol - IVPB 80 mg Q6H-IV [facility] Administration Metoprolol Tartrate 25 mg 05/21/16 10:00 05/22/16 10:19 Lopressor - PO 25 mg DAILY [facility] Administration Oxycodone HCl 5 mg 05/21/16 08:58 05/22/16 08:23 Roxicodone - PO 5 mg Q6H PRN Administration Sucralfate 1 gm 05/20/16 22:00 05/21/16 21:13 Carafate Oral Suspension - PO 1 gm HS [facility] Administration Tiotropium [place] 1 puff 05/21/16 13:30 05/22/16 10:22 Spiriva - IH 1 puff DAILY [facility] Administration Valsartan 320 mg 05/21/16 10:00 05/22/16 10:19 Diovan - PO 320 mg DAILY [facility] Administration Warfarin Sodium 1 mg 05/21/16 18:00 05/21/16 17:46 Coumadin - PO 1 mg DAILY@1800 [facility] Administration CBC, BMP 05/22/16 05:35 05/22/16 05:35 echo 01/2014: nl lv, nl rv, mild mr, mild tr, rvsp 43 echo 05/2016: tds; nl lv, nl rv size, mild marcus, mild mr, mild-mod tr, rvsp 40-50 , mod ao root dil cxr: no chf ecg 05/20/16, 05/21/16: afib, rate controlled, occ vpacing, nonspecific st-t changes tele: afib, rate ok, occ vpacing Assessment/Plan 80 f hx afib on coumadin, htn, hld, tachy/maricruz syndrome s/p ppm, copd, pad s/p rle bypass, possible cad (equivocal MIBI), chronic sob/briones/palps likely related to anxiety, esophageal ca s/p laser treatment, here with sob. sob: -current presentation seems more related to copd than chf -no signs vol overload -no signs acs, ce's neg x2 -cont tx copd per pmd/pulm chronic diast CHF: -seems stable presently -initially held lasix due to elevated cr but now on iv steroids, cr stable, so will resume home po lasix 40 bid to avoid vol overload afib: -Rate controlled on dilt plus low dose metopr and dig (dig level ok here) -cont AC with warfarin per inr htn: -controlled on current meds tachy/maricruz syndrome s/p ppm: - Stable, cont routine outpt checks pad s/p rle bypass: -Stable, no claudication. possible cad (equivocal MIBI): -No angina, continue medical management (statin, BB, ARB...no ASA (on AC))
--- NOTE | 2016-05-22 11:41 | EKG ---
Test Reason : Blood Pressure : / mmHG Vent. Rate : 085 BPM Atrial Rate : 083 BPM P-R Int : 000 ms QRS Dur : 082 ms QT Int : 384 ms P-R-T Axes : 000 082 -73 degrees QTc Int : 456 ms ATRIAL FIBRILLATION ABNORMAL ECG WHEN COMPARED WITH ECG OF 20-MAY-2016 15:28, ATRIAL FIBRILLATION HAS REPLACED ELECTRONIC VENTRICULAR PACEMAKER Confirmed by CAMILO GILLIS MD ([id number]) on 05/22/2016 11:40:56 AM Referred By: Maria Luisa VILLAGRAN Confirmed By:CAMILO GILLIS MD
--- NOTE | 2016-05-22 11:43 | EKG ---
Test Reason : Blood Pressure : / mmHG Vent. Rate : 078 BPM Atrial Rate : 074 BPM P-R Int : 000 ms QRS Dur : 076 ms QT Int : 368 ms P-R-T Axes : 000 079 -47 degrees QTc Int : 419 ms POOR DATA QUALITY, INTERPRETATION MAY BE ADVERSELY AFFECTED ATRIAL FIBRILLATION WITH OCCASIONAL ventricular-paced complexes ABNORMAL ECG WHEN COMPARED WITH ECG OF 16-APR-2015 13:02, PREVIOUS ECG HAS UNDETERMINED RHYTHM, NEEDS REVIEW Confirmed by CAMILO GILLIS MD ([id number]) on 05/22/2016 11:43:14 AM Referred By: Confirmed By:CAMILO GILLIS MD
--- NOTE | 2016-05-22 12:58 | PN ---
Progress Note, Physician Chief Complaint: Ms Moncada says her breathing is better. However she complains of throat pain and burning on swallowing. No cp or n/v. - Current Medication List Current Medications: Active Medications Albuterol/Ipratropium (Duoneb -) 1 amp NEB QIDR [facility] Last Admin: 05/22/16 11:11 Dose: 1 amp Atorvastatin Calcium (Lipitor -) 10 mg PO HS [facility] Last Admin: 05/21/16 21:09 Dose: 10 mg Budesonide/Formoterol Fumarate (Symbicort 160/4.5mcg -) 2 puff IH BID [facility] Last Admin: 05/22/16 10:20 Dose: 2 puff Digoxin (Lanoxin -) 0.125 mg PO DAILY [facility] Last Admin: 05/22/16 10:21 Dose: 0.125 mg Diltiazem HCl (Cardizem Cd -) 180 mg PO DAILY [facility] Last Admin: 05/22/16 10:19 Dose: 180 mg Furosemide (Lasix -) 40 mg PO BID@0600,1400 [facility] Heparin Sodium (Porcine) (Heparin -) 5,000 unit SQ BID [facility] Last Admin: 05/22/16 10:19 Dose: 5,000 unit Hydralazine HCl (Apresoline -) 25 mg PO BID [facility] Last Admin: 05/22/16 10:19 Dose: 25 mg Ceftriaxone Sodium (Rocephin 1gm Ivpb (Pre-Docked)) 50 mls @ 100 mls/hr IVPB DAILY [facility] Last Admin: 05/22/16 10:23 Dose: 100 mls/hr Methylprednisolone Sodium Succinate (Solu-Medrol -) 80 mg IVPB Q6H-IV [facility] Last Admin: 05/22/16 08:13 Dose: 80 mg Metoprolol Tartrate (Lopressor -) 25 mg PO DAILY [facility] Last Admin: 05/22/16 10:19 Dose: 25 mg Nystatin (Nystatin Oral Suspension -) 500,000 units PO Q6HPO [facility] Oxycodone HCl (Roxicodone -) 5 mg PO Q6H PRN Last Admin: 05/22/16 08:23 Dose: 5 mg Sucralfate (Carafate Oral Suspension -) 1 gm PO HS [facility] Last Admin: 05/21/16 21:13 Dose: 1 gm Tiotropium [place] (Spiriva -) 1 puff IH DAILY [facility] Last Admin: 05/22/16 10:22 Dose: 1 puff Valsartan (Diovan -) 320 mg PO DAILY [facility] Last Admin: 05/22/16 10:19 Dose: 320 mg Warfarin Sodium (Coumadin -) 1 mg PO DAILY@1800 [facility] Last Admin: 05/21/16 17:46 Dose: 1 mg - Objective Vital Signs: Vital Signs Temperature 98.2 F 05/22/16 07:49 Pulse Rate 67 05/22/16 11:10 Respiratory Rate 18 05/22/16 08:42 Blood Pressure 142/81 05/22/16 07:49 O2 Sat by Pulse Oximetry (%) 98 05/22/16 11:10 Constitutional: Yes: Well Nourished, No Distress, Calm Cardiovascular: Yes: Pulse Irregular. No: Tachycardia, Gallop, Murmur, Rub Respiratory: Yes: On Nasal O2, Tachypnea, Wheezes. No: Rales, Rhonchi Gastrointestinal: Yes: Normal Bowel Sounds, Soft. No: Distention, Tenderness Extremities: Yes: WNL Edema: No Labs: CBC, BMP 05/22/16 05:35 05/22/16 05:35 INR, PTT INR 2.15 (0.82-1.09) H 05/22/16 05:35 Problem List - Problems (1) Acute exacerbation of chronic obstructive pulmonary disease (COPD) Code(s): J44.1 - CHRONIC OBSTRUCTIVE PULMONARY DISEASE W (ACUTE) EXACERBATION (2) CHF (congestive heart failure) Code(s): I50.9 - HEART FAILURE, UNSPECIFIED Qualifiers: Congestive heart failure type: unspecified congestive heart failure type Congestive heart failure chronicity: acute Qualified Code(s): I50.9 - Heart failure, unspecified (3) Atrial fibrillation Code(s): I48.91 - UNSPECIFIED ATRIAL FIBRILLATION (4) Hyperlipidemia Code(s): E78.5 - HYPERLIPIDEMIA, UNSPECIFIED (5) Hypertension Code(s): I10 - ESSENTIAL (PRIMARY) HYPERTENSION Assessment/Plan (1) Acute exacerbation of chronic obstructive pulmonary disease (COPD) Assessment/Plan: -patient says she is feeling better, but still appears short of breath on exam -continue solumedrol -continue spiriva and albuterol -started on symbicort -pulmonary following Code(s): J44.1 - CHRONIC OBSTRUCTIVE PULMONARY DISEASE W (ACUTE) EXACERBATION (2) CHF (congestive heart failure) Assessment/Plan: -appreciate cardiology assistance -not in exacerbation -monitor Code(s): I50.9 - HEART FAILURE, UNSPECIFIED Qualifiers: Congestive heart failure type: unspecified congestive heart failure type Congestive heart failure chronicity: acute Qualified Code(s): I50.9 - Heart failure, unspecified (3) Atrial fibrillation Assessment/Plan: -continue metoprolol, diltiazem, and digoxin -continue coumadin, therapeutic -controlled Code(s): I48.91 - UNSPECIFIED ATRIAL FIBRILLATION (4) Hyperlipidemia Assessment/Plan: -continue statin Code(s): E78.5 - HYPERLIPIDEMIA, UNSPECIFIED (5) Hypertension Assessment/Plan: -controlled -continue current management Code(s): I10 - ESSENTIAL (PRIMARY) HYPERTENSION (6) Thrush -concern for possible thrush considering on inhalers as an outpatient -start nystatin -if does not improve, consult GI
[2016-05-22] MEDS: FUROSEMIDE 40 MG TABLET (FP) PO SCH (15:18)
--- NOTE | 2016-05-22 16:06 | CONSULT ---
Consult Consult Specialty:: infectious diseases Referred by:: Reason for Consultation:: uti - History of Present Illness Chief Complaint: sob History of Present Illness: 80 year old lady with increasing dyspnea admitted for sob and cough patient not feeling well patient was evaluated by resp and treatment started patient was worked up and found to have uti patient denies fever and chills also denies burning or dysuria - History Source History Provided By: Patient Limitations to Obtaining History: No Limitations - Past Medical History Cardio/Vascular: Yes: AFIB, CAD, HTN, Hyperlipdemia Pulmonary: Yes: COPD ...: No Infectious Disease: Yes: C-Diff Musculoskeletal: Yes: Osteoarthritis - Past Surgical History Past Surgical History: Yes: Appendectomy, Hysterectomy, Permanent Pacemaker - Alcohol/Substance Use Hx Alcohol Use: No - Smoking History Smoking history: Former smoker Have you smoked in the past 12 months: No Aproximately how many cigarettes per day: 0 If you are a former smoker, when did you quit?: 2002 - Social History Usual Living Arrangement: Alone ADL: Independent History of Recent Travel: No Home Medications - Allergies Allergies/Adverse Reactions: Allergies Allergy/AdvReac Type Severity Reaction Status Date / Time melatonin Allergy Mild Nausea Verified 05/20/16 15:33 vancomycin AdvReac Mild Nausea Verified 05/20/16 15:33 zolpidem AdvReac Unknown Verified 05/20/16 15:33 zolpidem tartrate AdvReac Unknown Verified 05/20/16 15:33 [From Ambien] - Home Medications Home Medications: Ambulatory Orders Atorvastatin Ca [Lipitor] 10 mg PO HS 12/11/13 Digoxin [Digitek] 125 mcg PO DAILY 03/17/15 Diltiazem Cd [Cardizem Cd -] 180 mg PO DAILY 03/17/15 Hydralazine HCl [Apresoline -] 25 mg PO BID 03/17/15 Metoprolol Tartrate [Lopressor -] 25 mg PO DAILY 03/17/15 Valsartan [Diovan] 320 mg PO DAILY 03/17/15 Furosemide [Lasix -] 40 mg PO BID #60 tablet 04/20/15 Magnesium Oxide [Mag-Ox -] 400 mg PO BID tablet 04/20/15 Warfarin Na [Coumadin -] 1 mg PO DAILY@1800 tablet 04/20/15 Sertraline HCl [Zoloft -] 25 mg PO DAILY 05/20/16 Review of Systems - Review of Systems Constitutional: reports: No Symptoms Eyes: reports: No Symptoms HENT: reports: No Symptoms Neck: reports: No Symptoms Cardiovascular: reports: No Symptoms Respiratory: reports: Cough, SOB, SOB on Exertion Gastrointestinal: reports: No Symptoms Genitourinary: reports: No Symptoms Musculoskeletal: reports: No Symptoms Integumentary: reports: No Symptoms Neurological: reports: No Symptoms Endocrine: reports: No Symptoms Hematology/Lymphatic: reports: No Symptoms Psychiatric: reports: No Symptoms Physical Exam Vital Signs: Vital Signs Temperature 97.4 F L 05/22/16 15:00 Pulse Rate 49 L 05/22/16 15:00 Respiratory Rate 18 05/22/16 15:00 Blood Pressure 137/56 05/22/16 15:00 O2 Sat by Pulse Oximetry (%) 98 05/22/16 11:10 Constitutional: Yes: Calm, Mild Distress Eyes: Yes: Conjunctiva Clear HENT: Yes: Atraumatic, Normocephalic Neck: Yes: Supple, Trachea Midline Cardiovascular: Yes: Regular Rate and Rhythm Respiratory: Yes: Regular, Poor Air Entry, Rhonchi Gastrointestinal: Yes: Normal Bowel Sounds, Soft Musculoskeletal: Yes: WNL Extremities: Yes: WNL Neurological: Yes: Alert, Oriented Psychiatric: Yes: Alert, Oriented Labs: CBC, BMP 05/22/16 05:35 05/22/16 05:35 Imaging - Results Chest X-ray: Report Reviewed, Image Reviewed Assessment/Plan - Problems (1) Acute exacerbation of chronic obstructive pulmonary disease (COPD) Code(s): J44.1 - CHRONIC OBSTRUCTIVE PULMONARY DISEASE W (ACUTE) EXACERBATION (2) CHF (congestive heart failure) Code(s): I50.9 - HEART FAILURE, UNSPECIFIED Qualifiers: Congestive heart failure type: unspecified congestive heart failure type Congestive heart failure chronicity: acute Qualified Code(s): I50.9 - Heart failure, unspecified (3) Atrial fibrillation Code(s): I48.91 - UNSPECIFIED ATRIAL FIBRILLATION (4) Hyperlipidemia Code(s): E78.5 - HYPERLIPIDEMIA, UNSPECIFIED (5) Hypertension Code(s): I10 - ESSENTIAL (PRIMARY) HYPERTENSION (6) Respiratory failure, [id number] Code(s): J96.20 - ACUTE AND CHR RESP FAILURE, UNSP W HYPOXIA OR HYPERCAPNIA uti Assessment/Plan (1) Acute exacerbation of chronic obstructive pulmonary disease (COPD) Code(s): J44.1 - CHRONIC OBSTRUCTIVE PULMONARY DISEASE W (ACUTE) EXACERBATION (2) CHF (congestive heart failure) Code(s): I50.9 - HEART FAILURE, UNSPECIFIED Qualifiers: Congestive heart failure type: unspecified congestive heart failure type Congestive heart failure chronicity: acute Qualified Code(s): I50.9 - Heart failure, unspecified (3) Atrial fibrillation Code(s): I48.91 - UNSPECIFIED ATRIAL FIBRILLATION (4) Hyperlipidemia Code(s): E78.5 - HYPERLIPIDEMIA, UNSPECIFIED (5) Hypertension Code(s): I10 - ESSENTIAL (PRIMARY) HYPERTENSION (6) Thrush 7 uti n39.0 plan at the moment will not start any treatment organism noted patient asymptomatic
--- NOTE | 2016-05-22 17:49 | PN ---
Progress Note, Physician History of Present Illness: Pt alert; less dyspneic but not back to her baseline. No sputum. Complaining of throat pain - Current Medication List Current Medications: Active Medications Albuterol/Ipratropium (Duoneb -) 1 amp NEB QIDR [facility] Last Admin: 05/22/16 11:11 Dose: 1 amp Atorvastatin Calcium (Lipitor -) 10 mg PO HS [facility] Last Admin: 05/21/16 21:09 Dose: 10 mg Budesonide/Formoterol Fumarate (Symbicort 160/4.5mcg -) 2 puff IH BID [facility] Last Admin: 05/22/16 10:20 Dose: 2 puff Digoxin (Lanoxin -) 0.125 mg PO DAILY [facility] Last Admin: 05/22/16 10:21 Dose: 0.125 mg Diltiazem HCl (Cardizem Cd -) 180 mg PO DAILY [facility] Last Admin: 05/22/16 10:19 Dose: 180 mg Furosemide (Lasix -) 40 mg PO BID@0600,1400 [facility] Last Admin: 05/22/16 15:18 Dose: 40 mg Heparin Sodium (Porcine) (Heparin -) 5,000 unit SQ BID [facility] Last Admin: 05/22/16 10:19 Dose: 5,000 unit Hydralazine HCl (Apresoline -) 25 mg PO BID [facility] Last Admin: 05/22/16 10:19 Dose: 25 mg Ceftriaxone Sodium (Rocephin 1gm Ivpb (Pre-Docked)) 50 mls @ 100 mls/hr IVPB DAILY [facility] Last Admin: 05/22/16 10:23 Dose: 100 mls/hr Methylprednisolone Sodium Succinate (Solu-Medrol -) 80 mg IVPB Q6H-IV [facility] Last Admin: 05/22/16 15:18 Dose: 80 mg Metoprolol Tartrate (Lopressor -) 25 mg PO DAILY [facility] Last Admin: 05/22/16 10:19 Dose: 25 mg Nystatin (Nystatin Oral Suspension -) 500,000 units PO Q6HPO [facility] Oxycodone HCl (Roxicodone -) 5 mg PO Q6H PRN Last Admin: 05/22/16 08:23 Dose: 5 mg Sucralfate (Carafate Oral Suspension -) 1 gm PO [facility] Last Admin: 05/21/16 21:13 Dose: 1 gm Tiotropium [place] (Spiriva -) 1 puff IH DAILY [facility] Last Admin: 05/22/16 10:22 Dose: 1 puff Valsartan (Diovan -) 320 mg PO DAILY [facility] Last Admin: 05/22/16 10:19 Dose: 320 mg Warfarin Sodium (Coumadin -) 1 mg PO DAILY@1800 [facility] Last Admin: 05/21/16 17:46 Dose: 1 mg - Objective Vital Signs: Vital Signs Temperature 97.4 F L 05/22/16 15:00 Pulse Rate 49 L 05/22/16 15:00 Respiratory Rate 18 05/22/16 15:00 Blood Pressure 137/56 05/22/16 15:00 O2 Sat by Pulse Oximetry (%) 98 05/22/16 11:10 Constitutional: Yes: No Distress, Calm Eyes: No: Sclera Icterus HENT: Yes: Atraumatic, Normocephalic Neck: Yes: Supple, Trachea Midline Cardiovascular: Yes: Pulse Irregular. No: JVD Respiratory: Yes: CTA Bilaterally Gastrointestinal: Yes: Soft. No: Tenderness Edema: No Neurological: Yes: Alert, Oriented Labs: CBC, BMP 05/22/16 05:35 05/22/16 05:35 INR, PTT INR 2.15 (0.82-1.09) H 05/22/16 05:35 Problem List - Problems (1) Acute respiratory failure Code(s): J96.00 - ACUTE RESPIRATORY FAILURE, UNSP W HYPOXIA OR HYPERCAPNIA (2) Acute exacerbation of chronic obstructive pulmonary disease (COPD) Code(s): J44.1 - CHRONIC OBSTRUCTIVE PULMONARY DISEASE W (ACUTE) EXACERBATION (3) Atrial fibrillation Code(s): I48.91 - UNSPECIFIED ATRIAL FIBRILLATION (4) CHF (congestive heart failure) Code(s): I50.9 - HEART FAILURE, UNSPECIFIED Qualifiers: Congestive heart failure type: unspecified congestive heart failure type Congestive heart failure chronicity: acute Qualified Code(s): I50.9 - Heart failure, unspecified Assessment/Plan 80 year old lady with history COPD, A.Fibrillation, and history of CHF admitted with acute respiratory failure requiring BiPAP in ER. Dyspnea appears to have been due to respiratory failure due to acute exacerbation of COPD rather than CHF. Pt starting to improve after treatment with systemic steroids. Suggest: IV steroids antibiotc inhaled bronchodilators O2 to maintain SaO2 >90 Cardiac medications and Warfarin BiPAP PRN
[2016-05-22] MEDS: NYSTATIN 500,000 UNITS/5 ML SUSPENSION PO SCH ×2 (18:15→23:42)
[2016-05-22] MEDS: WARFARIN NA 1 MG TABLET (FP) PO SCH (18:15)
[2016-05-22] MEDS: ATORVASTATIN CA 10 MG TABLET (FP) PO SCH (21:12)
[2016-05-22] MEDS: SUCRALFATE 1 GM/10 ML UNIT DOSE CUPS PO SCH (21:12)
[2016-05-23] MEDS: methylPREDNISolone NA SUCC 40 MG/1 ML VIAL IVPB SCH ×4 (03:06→17:32)
[2016-05-23] MEDS: NYSTATIN 500,000 UNITS/5 ML SUSPENSION PO SCH ×3 (05:44→17:32)
[2016-05-23] MEDS: FUROSEMIDE 40 MG TABLET (FP) PO SCH ×2 (05:44→14:52)
[2016-05-23] MEDS: ALBUTEROL SO4 2.5/IPRATROPIUM 0.5 INH SOL 3 ML VIAL.NEB. NEB SCH ×3 (06:31→18:00)
[2016-05-23 07:50] LABS: MCHC 33.6 g/dl (32.0-36.0); MEAN CELL VOLUME 92.2 fl (80-96); PLATELET COUNT 250 K/MM3 (134-434); RDW 15.3 % (11.6-15.6); WHITE BLOOD COUNT 17.5 K/mm3 (4.0-10.0)
[2016-05-23 08:15] LABS: INR 2.67 (0.82-1.09)
[2016-05-23 08:18] LABS: CALCIUM 8.7 mg/dL (8.5-10.1); COCKROFT - GAULT 37.349; CREATININE 1.2 mg/dL (0.55-1.02); MAGNESIUM 2.2 mg/dL (1.8-2.4); PHOSPHOROUS 2.3 mg/dL (2.5-4.9)
[2016-05-23] MEDS: VALSARTAN 160 MG TABLET (UD) PO SCH (09:50)
[2016-05-23] MEDS: METOPROLOL TARTRATE 25 MG TABLET (FP) PO SCH (09:50)
[2016-05-23] MEDS: hydrALAZINE HCL 25 MG TABLET (FP) PO SCH ×2 (09:50→21:19)
[2016-05-23] MEDS: oxyCODONE HCL 5 MG TABLET PO PRN (09:52)
[2016-05-23] MEDS: CEFTRIAXONE 50 ML IVPB SCH (09:54)
[2016-05-23] MEDS: HEPARIN NA (PORCINE) 5,000 UNITS/ML 1ML VIAL SQ SCH ×2 (10:07→21:19)
[2016-05-23] MEDS: BUDESONIDE/FORMETEROL FUMARATE 160/4.5 mcg INHALER IH SCH ×2 (10:07→21:19)
[2016-05-23] MEDS: DIGOXIN 0.125 MG TABLET (FP) PO SCH (10:07)
[2016-05-23] MEDS: TIOTROPIUM BROMIDE 18 MCG/INH (DEVICE W/ 5 CAPSULES) IH SCH (10:07)
--- NOTE | 2016-05-23 10:54 | PN ---
Progress Note (short form) - Note Progress Note: s: no cp palps dizzy; sob improving o: Vital Signs Period Temp Pulse Resp BP Sys/Wahl Pulse Ox Last 24 Hr 97 F-98.4 F 49-95 18-22 136-156/56-82 95-98 nad, no jvd rrr s1s2 no mrg cta bl nl eff aaox3 no le e/c/c no diaphoresis/jaundice Current Medications Generic Name Dose Route Start Last Admin Trade Name Freq PRN Reason Stop Dose Admin Albuterol/Ipratropium 1 amp 05/21/16 00:00 05/23/16 06:31 Duoneb - NEB 1 amp QIDR [facility] Administration Atorvastatin Calcium 10 mg 05/20/16 22:00 05/22/16 21:12 Lipitor - PO 10 mg HS [facility] Administration Budesonide/Formoterol Fumarate 2 puff 05/20/16 22:00 05/23/16 10:07 Symbicort 160/4.5mcg - IH 2 puff BID [facility] Administration Digoxin 0.125 mg 05/21/16 10:00 05/23/16 10:07 Lanoxin - PO 0.125 mg DAILY [facility] Administration Diltiazem HCl 180 mg 05/21/16 10:00 05/23/16 10:07 Cardizem Cd - PO 180 mg DAILY [facility] Administration Furosemide 40 mg 05/22/16 14:00 05/23/16 05:44 Lasix - PO 40 mg BID@0600,1400 [facility] Administration Heparin Sodium (Porcine) 5,000 unit 05/20/16 22:00 05/23/16 10:07 Heparin - SQ 5,000 unit BID [facility] Administration Hydralazine HCl 25 mg 05/20/16 22:00 05/23/16 09:50 Apresoline - PO 25 mg BID [facility] Administration Ceftriaxone Sodium 50 mls @ 100 mls/hr 05/21/16 10:00 05/23/16 09:54 Rocephin 1gm Ivpb (Pre-Docked) IVPB 100 mls/hr DAILY [facility] Administration Methylprednisolone Sodium Succinate 80 mg 05/21/16 09:00 05/23/16 09:49 Solu-Medrol - IVPB 80 mg Q6H-IV [facility] Administration Metoprolol Tartrate 25 mg 05/21/16 10:00 05/23/16 09:50 Lopressor - PO 25 mg DAILY [facility] Administration Nystatin 500,000 units 05/22/16 18:00 05/23/16 05:44 Nystatin Oral Suspension - PO 500,000 units Q6HPO [facility] Administration Oxycodone HCl 5 mg 05/21/16 08:58 05/23/16 09:52 Roxicodone - PO 5 mg Q6H PRN Administration Sucralfate 1 gm 05/20/16 22:00 05/22/16 21:12 Carafate Oral Suspension - PO 1 gm HS [facility] Administration Tiotropium [place] 1 puff 05/21/16 13:30 05/23/16 10:07 Spiriva - IH 1 puff DAILY [facility] Administration Valsartan 320 mg 05/21/16 10:00 05/23/16 09:50 Diovan - PO 320 mg DAILY [facility] Administration Warfarin Sodium 1 mg 05/21/16 18:00 05/22/16 18:15 Coumadin - PO 1 mg DAILY@1800 [facility] Administration CBC, BMP 05/23/16 05:48 05/23/16 05:48 echo 01/2014: nl lv, nl rv, mild mr, mild tr, rvsp 43 echo 05/2016: tds; nl lv, nl rv size, mild marcus, mild mr, mild-mod tr, rvsp 40-50 , mod ao root dil cxr: no chf ecg 05/20/16, 05/21/16: afib, rate controlled, occ vpacing, nonspecific st-t changes tele: afib, rate ok, occ vpacing Assessment/Plan 80 f hx afib on coumadin, htn, hld, tachy/maricruz syndrome s/p ppm, copd, pad s/p rle bypass, possible cad (equivocal MIBI), chronic sob/briones/palps likely related to anxiety, esophageal ca s/p laser treatment, here with sob. sob: -current presentation seems more related to copd than chf -no signs vol overload -no signs acs, ce's neg x2 -cont tx copd per pmd/pulm, sxs improving chronic diast CHF: -seems stable presently -initially held lasix due to elevated cr but now on iv steroids, cr stable, so resumed home po lasix 40 bid to avoid vol overload afib: -Rate controlled on dilt plus low dose metopr and dig (dig level ok here) -cont AC with warfarin per inr htn: -controlled on current meds tachy/maricruz syndrome s/p ppm: - Stable, cont routine outpt checks pad s/p rle bypass: -Stable, no claudication. possible cad (equivocal MIBI): -No angina, continue medical management (statin, BB, ARB...no ASA (on AC)) can dc tele
--- NOTE | 2016-05-23 11:29 | PN ---
Progress Note, Physician Chief Complaint: Ms Moncada says she is feeling much better. She is no longer having pain or difficulty swallowing. Says her breathing is much improved. No cp, sob, n/v. - Current Medication List Current Medications: Active Medications Albuterol/Ipratropium (Duoneb -) 1 amp NEB QIDR [facility] Last Admin: 05/23/16 06:31 Dose: 1 amp Atorvastatin Calcium (Lipitor -) 10 mg PO HS [facility] Last Admin: 05/22/16 21:12 Dose: 10 mg Budesonide/Formoterol Fumarate (Symbicort 160/4.5mcg -) 2 puff IH BID [facility] Last Admin: 05/23/16 10:07 Dose: 2 puff Digoxin (Lanoxin -) 0.125 mg PO DAILY [facility] Last Admin: 05/23/16 10:07 Dose: 0.125 mg Diltiazem HCl (Cardizem Cd -) 180 mg PO DAILY [facility] Last Admin: 05/23/16 10:07 Dose: 180 mg Furosemide (Lasix -) 40 mg PO BID@0600,1400 [facility] Last Admin: 05/23/16 05:44 Dose: 40 mg Heparin Sodium (Porcine) (Heparin -) 5,000 unit SQ BID [facility] Last Admin: 05/23/16 10:07 Dose: 5,000 unit Hydralazine HCl (Apresoline -) 25 mg PO BID [facility] Last Admin: 05/23/16 09:50 Dose: 25 mg Methylprednisolone Sodium Succinate (Solu-Medrol -) 80 mg IVPB Q6H-IV [facility] Last Admin: 05/23/16 09:49 Dose: 80 mg Metoprolol Tartrate (Lopressor -) 25 mg PO DAILY [facility] Last Admin: 05/23/16 09:50 Dose: 25 mg Nystatin (Nystatin Oral Suspension -) 500,000 units PO Q6HPO [facility] Last Admin: 05/23/16 05:44 Dose: 500,000 units Oxycodone HCl (Roxicodone -) 5 mg PO Q6H PRN Last Admin: 05/23/16 09:52 Dose: 5 mg Sucralfate (Carafate Oral Suspension -) 1 gm PO HS [facility] Last Admin: 05/22/16 21:12 Dose: 1 gm Tiotropium [place] (Spiriva -) 1 puff IH DAILY [facility] Last Admin: 05/23/16 10:07 Dose: 1 puff Valsartan (Diovan -) 320 mg PO DAILY [facility] Last Admin: 05/23/16 09:50 Dose: 320 mg Warfarin Sodium (Coumadin -) 1 mg PO DAILY@1800 [facility] Last Admin: 05/22/16 18:15 Dose: 1 mg - Objective Vital Signs: Vital Signs Temperature 97 F L 05/23/16 05:31 Pulse Rate 83 05/23/16 10:07 Respiratory Rate 22 05/23/16 05:31 Blood Pressure 149/66 05/23/16 05:31 O2 Sat by Pulse Oximetry (%) 95 05/22/16 20:54 Constitutional: Yes: Well Nourished, No Distress, Calm HENT: No: Thrush Cardiovascular: Yes: Regular Rate and Rhythm. No: Gallop, Murmur, Rub Respiratory: Yes: Regular, CTA Bilaterally, On Nasal O2. No: Rales, Rhonchi, Wheezes Gastrointestinal: Yes: Normal Bowel Sounds, Soft. No: Distention, Tenderness Extremities: Yes: WNL Edema: No Labs: CBC, BMP 05/23/16 05:48 05/23/16 05:48 INR, PTT INR 2.67 (0.82-1.09) H 05/23/16 05:48 Problem List - Problems (1) Acute exacerbation of chronic obstructive pulmonary disease (COPD) Code(s): J44.1 - CHRONIC OBSTRUCTIVE PULMONARY DISEASE W (ACUTE) EXACERBATION (2) CHF (congestive heart failure) Code(s): I50.9 - HEART FAILURE, UNSPECIFIED Qualifiers: Congestive heart failure type: unspecified congestive heart failure type Congestive heart failure chronicity: acute Qualified Code(s): I50.9 - Heart failure, unspecified (3) Atrial fibrillation Code(s): I48.91 - UNSPECIFIED ATRIAL FIBRILLATION (4) Hyperlipidemia Code(s): E78.5 - HYPERLIPIDEMIA, UNSPECIFIED (5) Hypertension Code(s): I10 - ESSENTIAL (PRIMARY) HYPERTENSION (6) Respiratory failure, [id number] Code(s): J96.20 - ACUTE AND CHR RESP FAILURE, UNSP W HYPOXIA OR HYPERCAPNIA Assessment/Plan (1) Acute exacerbation of chronic obstructive pulmonary disease (COPD) Assessment/Plan: -patient says she is feeling better and today looks much improved -pulmonary following -continue solumedrol, symbicort, and duonebs -pulmonary to titrate steroids Code(s): J44.1 - CHRONIC OBSTRUCTIVE PULMONARY DISEASE W (ACUTE) EXACERBATION (2) CHF (congestive heart failure) Assessment/Plan: -appreciate cardiology assistance -not in exacerbation -monitor Code(s): I50.9 - HEART FAILURE, UNSPECIFIED Qualifiers: Congestive heart failure type: unspecified congestive heart failure type Congestive heart failure chronicity: acute Qualified Code(s): I50.9 - Heart failure, unspecified (3) Atrial fibrillation Assessment/Plan: -continue metoprolol, diltiazem, and digoxin -continue coumadin, therapeutic -controlled Code(s): I48.91 - UNSPECIFIED ATRIAL FIBRILLATION (4) Hyperlipidemia Assessment/Plan: -continue statin Code(s): E78.5 - HYPERLIPIDEMIA, UNSPECIFIED (5) Hypertension Assessment/Plan: -controlled -continue current management Code(s): I10 - ESSENTIAL (PRIMARY) HYPERTENSION (6) Thrush -much improved -continue nystatin swish and swallow day 2
--- NOTE | 2016-05-23 16:24 | PN ---
Progress Note, Physician History of Present Illness: Pt alert, dyspnea improved. Throt pain decreasing - Current Medication List Current Medications: Active Medications Albuterol/Ipratropium (Duoneb -) 1 amp NEB QIDR [facility] Last Admin: 05/23/16 11:30 Dose: 1 amp Atorvastatin Calcium (Lipitor -) 10 mg PO HS [facility] Last Admin: 05/22/16 21:12 Dose: 10 mg Budesonide/Formoterol Fumarate (Symbicort 160/4.5mcg -) 2 puff IH BID [facility] Last Admin: 05/23/16 10:07 Dose: 2 puff Digoxin (Lanoxin -) 0.125 mg PO DAILY [facility] Last Admin: 05/23/16 10:07 Dose: 0.125 mg Diltiazem HCl (Cardizem Cd -) 180 mg PO DAILY [facility] Last Admin: 05/23/16 10:07 Dose: 180 mg Furosemide (Lasix -) 40 mg PO BID@0600,1400 [facility] Last Admin: 05/23/16 14:52 Dose: 40 mg Heparin Sodium (Porcine) (Heparin -) 5,000 unit SQ BID [facility] Last Admin: 05/23/16 10:07 Dose: 5,000 unit Hydralazine HCl (Apresoline -) 25 mg PO BID [facility] Last Admin: 05/23/16 09:50 Dose: 25 mg Methylprednisolone Sodium Succinate (Solu-Medrol -) 80 mg IVPB Q6H-IV [facility] Last Admin: 05/23/16 14:52 Dose: 80 mg Metoprolol Tartrate (Lopressor -) 25 mg PO DAILY [facility] Last Admin: 05/23/16 09:50 Dose: 25 mg Nystatin (Nystatin Oral Suspension -) 500,000 units PO Q6HPO [facility] Last Admin: 05/23/16 12:10 Dose: 500,000 units Oxycodone HCl (Roxicodone -) 5 mg PO Q6H PRN Last Admin: 05/23/16 09:52 Dose: 5 mg Sucralfate (Carafate Oral Suspension -) 1 gm PO HS [facility] Last Admin: 05/22/16 21:12 Dose: 1 gm Tiotropium [place] (Spiriva -) 1 puff IH DAILY [facility] Last Admin: 05/23/16 10:07 Dose: 1 puff Valsartan (Diovan -) 320 mg PO DAILY [facility] Last Admin: 05/23/16 09:50 Dose: 320 mg Warfarin Sodium (Coumadin -) 1 mg PO DAILY@1800 [facility] Last Admin: 05/22/16 18:15 Dose: 1 mg - Objective Vital Signs: Vital Signs Temperature 97.9 F 05/23/16 15:04 Pulse Rate 79 05/23/16 15:04 Respiratory Rate 22 05/23/16 15:04 Blood Pressure 142/66 05/23/16 15:04 O2 Sat by Pulse Oximetry (%) 96 05/23/16 11:30 Constitutional: Yes: No Distress Eyes: No: Sclera Icterus HENT: Yes: Atraumatic, Normocephalic Neck: Yes: Supple, Trachea Midline Cardiovascular: Yes: Pulse Irregular. No: JVD Respiratory: No: CTA Bilaterally Gastrointestinal: Yes: Soft. No: Tenderness Edema: No Neurological: Yes: Alert, Oriented Labs: CBC, BMP 05/23/16 05:48 05/23/16 05:48 INR, PTT INR 2.67 (0.82-1.09) H 05/23/16 05:48 Problem List - Problems (1) Acute respiratory failure Code(s): J96.00 - ACUTE RESPIRATORY FAILURE, UNSP W HYPOXIA OR HYPERCAPNIA (2) Acute exacerbation of chronic obstructive pulmonary disease (COPD) Code(s): J44.1 - CHRONIC OBSTRUCTIVE PULMONARY DISEASE W (ACUTE) EXACERBATION (3) Atrial fibrillation Code(s): I48.91 - UNSPECIFIED ATRIAL FIBRILLATION (4) CHF (congestive heart failure) Code(s): I50.9 - HEART FAILURE, UNSPECIFIED Qualifiers: Congestive heart failure type: unspecified congestive heart failure type Congestive heart failure chronicity: acute Qualified Code(s): I50.9 - Heart failure, unspecified Assessment/Plan 80 year old lady with history COPD, A.Fibrillation, and history of CHF admitted with acute respiratory failure requiring BiPAP in ER. Dyspnea appears to have been due to respiratory failure due to acute exacerbation of COPD rather than CHF. Pt improving: will start to taper steroids Suggest: Solumedrol 40 mg q 8 hours antibiotc inhaled bronchodilators O2 to maintain SaO2 >90 Cardiac medications and Warfarin BiPAP PRN
[2016-05-23] MEDS: WARFARIN NA 1 MG TABLET (FP) PO SCH (17:32)
[2016-05-23] MEDS: ATORVASTATIN CA 10 MG TABLET (FP) PO SCH (21:19)
[2016-05-23] MEDS: SUCRALFATE 1 GM/10 ML UNIT DOSE CUPS PO SCH (21:19)
[2016-05-24] MEDS: NYSTATIN 500,000 UNITS/5 ML SUSPENSION PO SCH ×4 (01:41→17:27)
[2016-05-24] MEDS: methylPREDNISolone NA SUCC 40 MG/1 ML VIAL IVPB SCH ×3 (01:50→17:28)
[2016-05-24] MEDS: ALBUTEROL SO4 2.5/IPRATROPIUM 0.5 INH SOL 3 ML VIAL.NEB. NEB SCH ×5 (05:47→23:56)
[2016-05-24] MEDS: FUROSEMIDE 40 MG TABLET (FP) PO SCH (06:29)
[2016-05-24 08:13] LABS: BASOPHIL 0.1 % (0-2.0); MCH 30.5 pg (25.7-33.7); MCHC 33.2 g/dl (32.0-36.0); MEAN CELL VOLUME 91.9 fl (80-96); MEAN PLT VOLUME 9.2 fl (7.5-11.1); NEUTROPHILS 92.9 % (42.8-82.8); PLATELET COUNT 313 K/MM3 (134-434); RDW 15.1 % (11.6-15.6); WHITE BLOOD COUNT 18.9 K/mm3 (4.0-10.0)
[2016-05-24 08:36] LABS: INR 2.41 (0.82-1.09)
[2016-05-24 08:37] LABS: CALCIUM 8.9 mg/dL (8.5-10.1); COCKROFT - GAULT 29.8775; CREATININE 1.5 mg/dL (0.55-1.02)
[2016-05-24] MEDS: VALSARTAN 160 MG TABLET (UD) PO SCH (09:07)
[2016-05-24] MEDS: METOPROLOL TARTRATE 25 MG TABLET (FP) PO SCH (09:08)
[2016-05-24] MEDS: HEPARIN NA (PORCINE) 5,000 UNITS/ML 1ML VIAL SQ SCH ×2 (09:08→21:16)
[2016-05-24] MEDS: DIGOXIN 0.125 MG TABLET (FP) PO SCH (09:08)
[2016-05-24] MEDS: hydrALAZINE HCL 25 MG TABLET (FP) PO SCH ×2 (09:08→21:16)
[2016-05-24] MEDS: BUDESONIDE/FORMETEROL FUMARATE 160/4.5 mcg INHALER IH SCH ×2 (09:16→21:16)
[2016-05-24] MEDS: TIOTROPIUM BROMIDE 18 MCG/INH (DEVICE W/ 5 CAPSULES) IH SCH (09:16)
--- NOTE | 2016-05-24 12:56 | PN ---
Progress Note, Physician History of Present Illness: Feeling better, less GOLD. Solumedrol has started to be tapered. - Current Medication List Current Medications: Active Medications Albuterol/Ipratropium (Duoneb -) 1 amp NEB QIDR [facility] Last Admin: 05/24/16 11:41 Dose: 1 amp Atorvastatin Calcium (Lipitor -) 10 mg PO HS [facility] Last Admin: 05/23/16 21:19 Dose: 10 mg Budesonide/Formoterol Fumarate (Symbicort 160/4.5mcg -) 2 puff IH BID [facility] Last Admin: 05/24/16 09:16 Dose: 2 puff Digoxin (Lanoxin -) 0.125 mg PO DAILY [facility] Last Admin: 05/24/16 09:08 Dose: 0.125 mg Diltiazem HCl (Cardizem Cd -) 180 mg PO DAILY [facility] Last Admin: 05/24/16 09:08 Dose: 180 mg Furosemide (Lasix -) 40 mg PO BID@0600,1400 [facility] Last Admin: 05/24/16 06:29 Dose: 40 mg Heparin Sodium (Porcine) (Heparin -) 5,000 unit SQ BID [facility] Last Admin: 05/24/16 09:08 Dose: 5,000 unit Hydralazine HCl (Apresoline -) 25 mg PO BID [facility] Last Admin: 05/24/16 09:08 Dose: 25 mg Methylprednisolone Sodium Succinate (Solu-Medrol -) 40 mg IVPB Q8H-IV [facility] Last Admin: 05/24/16 09:08 Dose: 40 mg Metoprolol Tartrate (Lopressor -) 25 mg PO DAILY [facility] Last Admin: 05/24/16 09:08 Dose: 25 mg Nystatin (Nystatin Oral Suspension -) 500,000 units PO Q6HPO [facility] Last Admin: 05/24/16 11:48 Dose: 500,000 units Oxycodone HCl (Roxicodone -) 5 mg PO Q6H PRN Last Admin: 05/23/16 09:52 Dose: 5 mg Sucralfate (Carafate Oral Suspension -) 1 gm PO HS [facility] Last Admin: 05/23/16 21:19 Dose: 1 gm Tiotropium [place] (Spiriva -) 1 puff IH DAILY [facility] Last Admin: 05/24/16 09:16 Dose: 1 puff Valsartan (Diovan -) 320 mg PO DAILY [facility] Last Admin: 05/24/16 09:07 Dose: 320 mg Warfarin Sodium (Coumadin -) 1 mg PO DAILY@1800 [facility] Last Admin: 05/23/16 17:32 Dose: 1 mg - Objective Vital Signs: Vital Signs Temperature 97.8 F 05/24/16 08:41 Pulse Rate 92 H 05/24/16 09:08 Respiratory Rate 22 05/24/16 08:41 Blood Pressure 136/62 05/24/16 08:41 O2 Sat by Pulse Oximetry (%) 95 05/24/16 08:00 Constitutional: Yes: No Distress, Calm HENT: Yes: Atraumatic, Normocephalic Neck: Yes: Supple, Trachea Midline Cardiovascular: Yes: Regular Rate and Rhythm, S1, S2. No: Murmur Respiratory: Yes: Regular, Diminished (bilaterally). No: Wheezes Gastrointestinal: Yes: Normal Bowel Sounds, Soft. No: Distention, Tenderness Edema: No Neurological: Yes: Alert, Oriented Labs: CBC, BMP 05/24/16 06:05 05/24/16 06:05 INR, PTT INR 2.41 (0.82-1.09) H 05/24/16 06:05 Assessment/Plan All Active Problems Acute respiratory failure (Acute) C. difficile colitis (Acute) CHF (congestive heart failure) (Acute) COPD (chronic obstructive pulmonary disease) (Acute) Failure to thrive in adult (Acute) Respiratory failure, [id number] (Acute) Shortness of breath (Acute) Acute exacerbation of chronic obstructive pulmonary disease (COPD) (Acute) Atrial fibrillation (Acute) Bandemia (Acute) COPD exacerbation (Acute) Colitis (Acute) Hyperlipidemia (Acute) Hypertension (Acute) Hypotension (Acute) Influenza (Acute) Leukocytosis (Acute) Low bicarbonate level (Acute) PAD (peripheral artery disease) (Acute) Pacemaker (Acute) Pneumonia (Acute) Supratherapeutic INR (Acute) Tendonitis (Acute) Thrush of mouth and esophagus (Acute) Weakness (Acute) -cont nebs, solumedrol taper, OOB
[2016-05-24] MEDS ORDERED: POTASSIUM CHLORIDE TABS 20 MEQ TABLET.ER (FP) PO ONE (13:54)
--- NOTE | 2016-05-24 14:01 | PN ---
Progress Note (short form) - Note Progress Note: CC: s: no cp palps dizzy; feeling more weak this afternoon, with + abdominal distension. Afternoon lasix dose had been held o: Current Medications Albuterol/Ipratropium (Duoneb -) 1 amp NEB QIDR [facility] Last Admin: 05/24/16 11:41 Dose: 1 amp Atorvastatin Calcium (Lipitor -) 10 mg PO [facility] Last Admin: 05/23/16 21:19 Dose: 10 mg Budesonide/Formoterol Fumarate (Symbicort 160/4.5mcg -) 2 puff IH BID [facility] Last Admin: 05/24/16 09:16 Dose: 2 puff Digoxin (Lanoxin -) 0.125 mg PO DAILY [facility] Last Admin: 05/24/16 09:08 Dose: 0.125 mg Diltiazem HCl (Cardizem Cd -) 180 mg PO DAILY [facility] Last Admin: 05/24/16 09:08 Dose: 180 mg Heparin Sodium (Porcine) (Heparin -) 5,000 unit SQ BID [facility] Last Admin: 05/24/16 09:08 Dose: 5,000 unit Hydralazine HCl (Apresoline -) 25 mg PO BID [facility] Last Admin: 05/24/16 09:08 Dose: 25 mg Methylprednisolone Sodium Succinate (Solu-Medrol -) 40 mg IVPB Q8H-IV [facility] Last Admin: 05/24/16 09:08 Dose: 40 mg Metoprolol Tartrate (Lopressor -) 25 mg PO DAILY [facility] Last Admin: 05/24/16 09:08 Dose: 25 mg Nystatin (Nystatin Oral Suspension -) 500,000 units PO Q6HPO [facility] Last Admin: 05/24/16 11:48 Dose: 500,000 units Oxycodone HCl (Roxicodone -) 5 mg PO Q6H PRN Last Admin: 05/23/16 09:52 Dose: 5 mg Potassium Chloride (K-Dur -) 40 meq PO ONCE ONE Stop: 05/24/16 13:55 Sucralfate (Carafate Oral Suspension -) 1 gm PO [facility] Last Admin: 05/23/16 21:19 Dose: 1 gm Tiotropium [place] (Spiriva -) 1 puff IH DAILY [facility] Last Admin: 05/24/16 09:16 Dose: 1 puff Valsartan (Diovan -) 320 mg PO DAILY [facility] Last Admin: 05/24/16 09:07 Dose: 320 mg Warfarin Sodium (Coumadin -) 1 mg PO DAILY@1800 [facility] Last Admin: 05/23/16 17:32 Dose: 1 mg Vital Signs - 24 hr 05/23/16 05/23/16 05/23/16 15:04 17:00 18:00 Temperature 97.9 F 98.1 F Pulse Rate 79 69 Respiratory 22 21 Rate Blood Pressure 142/66 151/61 O2 Sat by Pulse 96 Oximetry (%) 05/23/16 05/23/16 05/24/16 21:00 22:00 02:00 Temperature 97.9 F 96.1 F L Pulse Rate 86 90 Respiratory 18 18 18 Rate Blood Pressure 152/70 151/93 O2 Sat by Pulse 97 Oximetry (%) 05/24/16 05/24/16 05/24/16 06:00 08:00 08:41 Temperature 98.2 F 97.8 F Pulse Rate 88 92 H Respiratory 16 22 22 Rate Blood Pressure 148/62 136/62 O2 Sat by Pulse 95 Oximetry (%) 05/24/16 09:08 Temperature Pulse Rate 92 H Respiratory Rate Blood Pressure O2 Sat by Pulse Oximetry (%) Intake & Output 05/22/16 05/23/16 05/24/16 05/25/16 07:59 07:59 07:59 07:59 Intake Total 920 1140 Output Total 1650 Balance -730 1140 Weight 140 lb 2 oz 139 lb 8 oz nad, jvd mild elevation vs. prominent v wave rrr s1s2 no mrg diminished air movment, nl effort aaox3 no le e/c/c no diaphoresis/jaundice CBC, BMP 05/24/16 06:05 05/24/16 06:05 Laboratory Tests 05/21/16 05/24/16 05/24/16 06:00 06:05 06:05 INR 2.41 H Magnesium 2.0 Digoxin 1.3419 echo 01/2014: nl lv, nl rv, mild mr, mild tr, rvsp 43 echo 05/2016: tds; nl lv, nl rv size, mild marcus, mild mr, mild-mod tr, rvsp 40-50 , mod ao root dil cxr: no chf ecg 05/20/16, 4/12/17: afib, rate controlled, occ vpacing, nonspecific st-t changes tele: afib, rate ok, occ vpacing Assessment/Plan 80 f hx afib on coumadin, htn, hld, tachy/maricruz syndrome s/p ppm, copd, pad s/p rle bypass, possible cad (equivocal MIBI), chronic sob/briones/palps likely related to anxiety, esophageal ca s/p laser treatment, here with sob. sob: -current presentation seems more related to copd than chf -no signs acs, ce's neg x2 -cont tx copd per pmd/pulm, - see below regarding diuresis chronic diast CHF: -seems stable presently -initially held lasix due to elevated cr but now on iv steroids, cr stable, so resumed home po lasix 40 bid to avoid vol overload - 05/24 Cr trending up on bid lasix. held afternoon dose, but now with abdominal distension/weakness. Unclear if related to volume. Repeat standing weight stable. Will reassess creatinine in am. afib: -Rate controlled on dilt plus low dose metopr and dig (dig level ok here) -cont AC with warfarin per inr htn: -controlled on current meds tachy/maricruz syndrome s/p ppm: - Stable, cont routine outpt checks pad s/p rle bypass: -Stable, no claudication. possible cad (equivocal MIBI): -No angina, continue medical management (statin, BB, ARB...no ASA (on AC))
--- NOTE | 2016-05-24 14:37 | PN ---
Progress Note, Physician History of Present Illness: patient feeling better no new issues still with some sob and cough - Current Medication List Current Medications: Active Medications Albuterol/Ipratropium (Duoneb -) 1 amp NEB QIDR [facility] Last Admin: 05/24/16 11:41 Dose: 1 amp Atorvastatin Calcium (Lipitor -) 10 mg PO HS [facility] Last Admin: 05/23/16 21:19 Dose: 10 mg Budesonide/Formoterol Fumarate (Symbicort 160/4.5mcg -) 2 puff IH BID [facility] Last Admin: 05/24/16 09:16 Dose: 2 puff Digoxin (Lanoxin -) 0.125 mg PO DAILY [facility] Last Admin: 05/24/16 09:08 Dose: 0.125 mg Diltiazem HCl (Cardizem Cd -) 180 mg PO DAILY [facility] Last Admin: 05/24/16 09:08 Dose: 180 mg Heparin Sodium (Porcine) (Heparin -) 5,000 unit SQ BID [facility] Last Admin: 05/24/16 09:08 Dose: 5,000 unit Hydralazine HCl (Apresoline -) 25 mg PO BID [facility] Last Admin: 05/24/16 09:08 Dose: 25 mg Methylprednisolone Sodium Succinate (Solu-Medrol -) 40 mg IVPB Q8H-IV [facility] Last Admin: 05/24/16 09:08 Dose: 40 mg Metoprolol Tartrate (Lopressor -) 25 mg PO DAILY [facility] Last Admin: 05/24/16 09:08 Dose: 25 mg Nystatin (Nystatin Oral Suspension -) 500,000 units PO Q6HPO [facility] Last Admin: 05/24/16 11:48 Dose: 500,000 units Oxycodone HCl (Roxicodone -) 5 mg PO Q6H PRN Last Admin: 05/23/16 09:52 Dose: 5 mg Sucralfate (Carafate Oral Suspension -) 1 gm PO HS [facility] Last Admin: 05/23/16 21:19 Dose: 1 gm Tiotropium [place] (Spiriva -) 1 puff IH DAILY [facility] Last Admin: 05/24/16 09:16 Dose: 1 puff Valsartan (Diovan -) 320 mg PO DAILY [facility] Last Admin: 05/24/16 09:07 Dose: 320 mg Warfarin Sodium (Coumadin -) 1 mg PO DAILY@1800 [facility] Last Admin: 05/23/16 17:32 Dose: 1 mg - Objective Vital Signs: Vital Signs Temperature 97.8 F 05/24/16 08:41 Pulse Rate 92 H 05/24/16 09:08 Respiratory Rate 22 05/24/16 08:41 Blood Pressure 136/62 05/24/16 08:41 O2 Sat by Pulse Oximetry (%) 95 05/24/16 08:00 Constitutional: Yes: No Distress, Calm Neck: Yes: Supple Cardiovascular: Yes: Pulse Irregular Respiratory: Yes: Regular, Poor Air Entry Gastrointestinal: Yes: Normal Bowel Sounds, Soft Musculoskeletal: Yes: WNL Extremities: Yes: WNL Neurological: Yes: Alert, Oriented Psychiatric: Yes: Alert, Oriented Labs: CBC, BMP 05/24/16 06:05 05/24/16 06:05 INR, PTT INR 2.41 (0.82-1.09) H 05/24/16 06:05 Assessment/Plan - Problems (1) Acute exacerbation of chronic obstructive pulmonary disease (COPD) Code(s): J44.1 - CHRONIC OBSTRUCTIVE PULMONARY DISEASE W (ACUTE) EXACERBATION (2) CHF (congestive heart failure) Code(s): I50.9 - HEART FAILURE, UNSPECIFIED Qualifiers: Congestive heart failure type: unspecified congestive heart failure type Congestive heart failure chronicity: acute Qualified Code(s): I50.9 - Heart failure, unspecified (3) Atrial fibrillation Code(s): I48.91 - UNSPECIFIED ATRIAL FIBRILLATION (4) Hyperlipidemia Code(s): E78.5 - HYPERLIPIDEMIA, UNSPECIFIED (5) Hypertension Code(s): I10 - ESSENTIAL (PRIMARY) HYPERTENSION (6) Respiratory failure, [id number] Code(s): J96.20 - ACUTE AND CHR RESP FAILURE, UNSP W HYPOXIA OR HYPERCAPNIA uti Assessment/Plan (1) Acute exacerbation of chronic obstructive pulmonary disease (COPD) Code(s): J44.1 - CHRONIC OBSTRUCTIVE PULMONARY DISEASE W (ACUTE) EXACERBATION (2) CHF (congestive heart failure) Code(s): I50.9 - HEART FAILURE, UNSPECIFIED Qualifiers: Congestive heart failure type: unspecified congestive heart failure type Congestive heart failure chronicity: acute Qualified Code(s): I50.9 - Heart failure, unspecified (3) Atrial fibrillation Code(s): I48.91 - UNSPECIFIED ATRIAL FIBRILLATION (4) Hyperlipidemia Code(s): E78.5 - HYPERLIPIDEMIA, UNSPECIFIED (5) Hypertension Code(s): I10 - ESSENTIAL (PRIMARY) HYPERTENSION (6) Thrush 7 uti n39.0 plan continue to watch no new issues [facility]
--- NOTE | 2016-05-24 14:38 | PN ---
Progress Note, Physician History of Present Illness: patient doing well no issues walked today still feels congested - Current Medication List Current Medications: Active Medications Albuterol/Ipratropium (Duoneb -) 1 amp NEB QIDR [facility] Last Admin: 05/24/16 11:41 Dose: 1 amp Atorvastatin Calcium (Lipitor -) 10 mg PO HS [facility] Last Admin: 05/23/16 21:19 Dose: 10 mg Budesonide/Formoterol Fumarate (Symbicort 160/4.5mcg -) 2 puff IH BID [facility] Last Admin: 05/24/16 09:16 Dose: 2 puff Digoxin (Lanoxin -) 0.125 mg PO DAILY [facility] Last Admin: 05/24/16 09:08 Dose: 0.125 mg Diltiazem HCl (Cardizem Cd -) 180 mg PO DAILY [facility] Last Admin: 05/24/16 09:08 Dose: 180 mg Heparin Sodium (Porcine) (Heparin -) 5,000 unit SQ BID [facility] Last Admin: 05/24/16 09:08 Dose: 5,000 unit Hydralazine HCl (Apresoline -) 25 mg PO BID [facility] Last Admin: 05/24/16 09:08 Dose: 25 mg Methylprednisolone Sodium Succinate (Solu-Medrol -) 40 mg IVPB Q8H-IV [facility] Last Admin: 05/24/16 09:08 Dose: 40 mg Metoprolol Tartrate (Lopressor -) 25 mg PO DAILY [facility] Last Admin: 05/24/16 09:08 Dose: 25 mg Nystatin (Nystatin Oral Suspension -) 500,000 units PO Q6HPO [facility] Last Admin: 05/24/16 11:48 Dose: 500,000 units Oxycodone HCl (Roxicodone -) 5 mg PO Q6H PRN Last Admin: 05/23/16 09:52 Dose: 5 mg Sucralfate (Carafate Oral Suspension -) 1 gm PO HS [facility] Last Admin: 05/23/16 21:19 Dose: 1 gm Tiotropium [place] (Spiriva -) 1 puff IH DAILY [facility] Last Admin: 05/24/16 09:16 Dose: 1 puff Valsartan (Diovan -) 320 mg PO DAILY [facility] Last Admin: 05/24/16 09:07 Dose: 320 mg Warfarin Sodium (Coumadin -) 1 mg PO DAILY@1800 [facility] Last Admin: 05/23/16 17:32 Dose: 1 mg - Objective Vital Signs: Vital Signs Temperature 97.8 F 05/24/16 08:41 Pulse Rate 92 H 05/24/16 09:08 Respiratory Rate 22 05/24/16 08:41 Blood Pressure 136/62 05/24/16 08:41 O2 Sat by Pulse Oximetry (%) 95 05/24/16 08:00 Constitutional: Yes: No Distress, Calm Cardiovascular: Yes: Pulse Irregular Respiratory: Yes: Regular, Poor Air Entry, Other Gastrointestinal: Yes: Normal Bowel Sounds, Soft Musculoskeletal: Yes: WNL Extremities: Yes: WNL Neurological: Yes: Alert, Oriented Psychiatric: Yes: Alert Labs: CBC, BMP 05/24/16 06:05 05/24/16 06:05 INR, PTT INR 2.41 (0.82-1.09) H 05/24/16 06:05 Assessment/Plan - Problems (1) Acute exacerbation of chronic obstructive pulmonary disease (COPD) Code(s): J44.1 - CHRONIC OBSTRUCTIVE PULMONARY DISEASE W (ACUTE) EXACERBATION (2) CHF (congestive heart failure) Code(s): I50.9 - HEART FAILURE, UNSPECIFIED Qualifiers: Congestive heart failure type: unspecified congestive heart failure type Congestive heart failure chronicity: acute Qualified Code(s): I50.9 - Heart failure, unspecified (3) Atrial fibrillation Code(s): I48.91 - UNSPECIFIED ATRIAL FIBRILLATION (4) Hyperlipidemia Code(s): E78.5 - HYPERLIPIDEMIA, UNSPECIFIED (5) Hypertension Code(s): I10 - ESSENTIAL (PRIMARY) HYPERTENSION (6) Respiratory failure, [id number] Code(s): J96.20 - ACUTE AND CHR RESP FAILURE, UNSP W HYPOXIA OR HYPERCAPNIA uti Assessment/Plan (1) Acute exacerbation of chronic obstructive pulmonary disease (COPD) Code(s): J44.1 - CHRONIC OBSTRUCTIVE PULMONARY DISEASE W (ACUTE) EXACERBATION (2) CHF (congestive heart failure) Code(s): I50.9 - HEART FAILURE, UNSPECIFIED Qualifiers: Congestive heart failure type: unspecified congestive heart failure type Congestive heart failure chronicity: acute Qualified Code(s): I50.9 - Heart failure, unspecified (3) Atrial fibrillation Code(s): I48.91 - UNSPECIFIED ATRIAL FIBRILLATION (4) Hyperlipidemia Code(s): E78.5 - HYPERLIPIDEMIA, UNSPECIFIED (5) Hypertension Code(s): I10 - ESSENTIAL (PRIMARY) HYPERTENSION (6) Thrush 7 uti n39.0 plan continue to watch no new issues [facility]
[2016-05-24] MEDS: WARFARIN NA 1 MG TABLET (FP) PO SCH (17:28)
[2016-05-24] MEDS: ATORVASTATIN CA 10 MG TABLET (FP) PO SCH (21:12)
[2016-05-24] MEDS: oxyCODONE HCL 5 MG TABLET PO PRN (21:12)
[2016-05-24] MEDS: SUCRALFATE 1 GM/10 ML UNIT DOSE CUPS PO SCH (21:16)
[2016-05-25] MEDS: NYSTATIN 500,000 UNITS/5 ML SUSPENSION PO SCH ×4 (01:37→17:21)
[2016-05-25] MEDS: methylPREDNISolone NA SUCC 40 MG/1 ML VIAL IVPB SCH ×3 (03:34→17:21)
[2016-05-25] MEDS: ALBUTEROL SO4 2.5/IPRATROPIUM 0.5 INH SOL 3 ML VIAL.NEB. NEB SCH ×3 (07:03→18:00)
[2016-05-25 08:44] LABS: BASOPHIL 0.2 % (0-2.0); MCH 30.1 pg (25.7-33.7); MCHC 32.4 g/dl (32.0-36.0); MEAN CELL VOLUME 92.7 fl (80-96); MEAN PLT VOLUME 9.3 fl (7.5-11.1); NEUTROPHILS 87.2 % (42.8-82.8); PLATELET COUNT 338 K/MM3 (134-434); RDW 15.4 % (11.6-15.6)
[2016-05-25 08:57] LABS: INR 2.43 (0.82-1.09); PROTHROMBIN TIME (PATIENT) 27.2 SEC (9.98-11.88)
[2016-05-25] MEDS: VALSARTAN 160 MG TABLET (UD) PO SCH (09:13)
[2016-05-25] MEDS: DIGOXIN 0.125 MG TABLET (FP) PO SCH (09:13)
[2016-05-25] MEDS: hydrALAZINE HCL 25 MG TABLET (FP) PO SCH ×2 (09:13→21:49)
[2016-05-25] MEDS: BUDESONIDE/FORMETEROL FUMARATE 160/4.5 mcg INHALER IH SCH ×2 (09:14→21:49)
[2016-05-25] MEDS: HEPARIN NA (PORCINE) 5,000 UNITS/ML 1ML VIAL SQ SCH ×2 (09:14→21:49)
[2016-05-25] MEDS: METOPROLOL TARTRATE 25 MG TABLET (FP) PO SCH (09:14)
[2016-05-25] MEDS: TIOTROPIUM BROMIDE 18 MCG/INH (DEVICE W/ 5 CAPSULES) IH SCH (09:15)
[2016-05-25 09:30] LABS: CALCIUM 9.3 mg/dL (8.5-10.1); COCKROFT - GAULT 37.8505; CREATININE 1.2 mg/dL (0.55-1.02)
--- NOTE | 2016-05-25 10:15 | PN ---
Progress Note, Physician History of Present Illness: Feeling better, less congested, pleuritic pain resolved (was having in left flank area previously) - Current Medication List Current Medications: Active Medications Albuterol/Ipratropium (Duoneb -) 1 amp NEB QIDR [facility] Last Admin: 05/25/16 07:03 Dose: 1 amp Atorvastatin Calcium (Lipitor -) 10 mg PO HS [facility] Last Admin: 05/24/16 21:12 Dose: 10 mg Budesonide/Formoterol Fumarate (Symbicort 160/4.5mcg -) 2 puff IH BID [facility] Last Admin: 05/25/16 09:14 Dose: 2 puff Digoxin (Lanoxin -) 0.125 mg PO DAILY [facility] Last Admin: 05/25/16 09:13 Dose: 0.125 mg Diltiazem HCl (Cardizem Cd -) 180 mg PO DAILY [facility] Last Admin: 05/25/16 09:14 Dose: 180 mg Heparin Sodium (Porcine) (Heparin -) 5,000 unit SQ BID [facility] Last Admin: 05/25/16 09:14 Dose: 5,000 unit Hydralazine HCl (Apresoline -) 25 mg PO BID [facility] Last Admin: 05/25/16 09:13 Dose: 25 mg Methylprednisolone Sodium Succinate (Solu-Medrol -) 40 mg IVPB Q8H-IV [facility] Last Admin: 05/25/16 09:14 Dose: 40 mg Metoprolol Tartrate (Lopressor -) 25 mg PO DAILY [facility] Last Admin: 05/25/16 09:14 Dose: 25 mg Nystatin (Nystatin Oral Suspension -) 500,000 units PO Q6HPO [facility] Last Admin: 05/25/16 06:26 Dose: 500,000 units Oxycodone HCl (Roxicodone -) 5 mg PO Q6H PRN Last Admin: 05/24/16 21:12 Dose: 5 mg Sucralfate (Carafate Oral Suspension -) 1 gm PO [facility] Last Admin: 05/24/16 21:16 Dose: 1 gm Tiotropium [place] (Spiriva -) 1 puff IH DAILY [facility] Last Admin: 05/25/16 09:15 Dose: Not Given Valsartan (Diovan -) 320 mg PO DAILY [facility] Last Admin: 05/25/16 09:13 Dose: 320 mg Warfarin Sodium (Coumadin -) 1 mg PO DAILY@1800 [facility] Last Admin: 05/24/16 17:28 Dose: 1 mg - Objective Vital Signs: Vital Signs Temperature 98 F 05/25/16 08:22 Pulse Rate 85 05/25/16 09:13 Respiratory Rate 20 05/25/16 08:22 Blood Pressure 161/82 05/25/16 08:22 O2 Sat by Pulse Oximetry (%) 98 05/24/16 21:00 Constitutional: Yes: No Distress, Calm Neck: Yes: Supple, Trachea Midline Cardiovascular: Yes: Pulse Irregular, S1, S2. No: Murmur Respiratory: Yes: Regular, CTA Bilaterally. No: Rales, Rhonchi, Wheezes Gastrointestinal: Yes: Normal Bowel Sounds, Soft. No: Distention, Tenderness Edema: No Neurological: Yes: Alert, Oriented Labs: CBC, BMP 05/25/16 06:20 05/25/16 06:20 INR, PTT INR 2.43 (0.82-1.09) H 05/25/16 06:20 Assessment/Plan All Active Problems Acute respiratory failure (Acute) C. difficile colitis (Acute) CHF (congestive heart failure) (Acute) COPD (chronic obstructive pulmonary disease) (Acute) Failure to thrive in adult (Acute) Respiratory failure, [id number] (Acute) Shortness of breath (Acute) Acute exacerbation of chronic obstructive pulmonary disease (COPD) (Acute) Atrial fibrillation (Acute) Bandemia (Acute) COPD exacerbation (Acute) Colitis (Acute) Hyperlipidemia (Acute) Hypertension (Acute) Hypotension (Acute) Influenza (Acute) Leukocytosis (Acute) Low bicarbonate level (Acute) PAD (peripheral artery disease) (Acute) Pacemaker (Acute) Pneumonia (Acute) Supratherapeutic INR (Acute) Tendonitis (Acute) Thrush of mouth and esophagus (Acute) Weakness (Acute) -same plan -cont nebs, solumedrol taper, OOB -d/c planning once able to be changed to oral prednisone (pulmonary following)
--- NOTE | 2016-05-25 15:07 | PN ---
Progress Note, Physician History of Present Illness: doing much better breathing much better still with sputum production - Current Medication List Current Medications: Active Medications Albuterol/Ipratropium (Duoneb -) [address] [facility] Last Admin: 05/25/16 12:10 Dose: 1 amp Atorvastatin Calcium (Lipitor -) [address] [facility] Last Admin: 05/24/16 21:12 Dose: 10 mg Budesonide/Formoterol Fumarate (Symbicort 160/4.5mcg -) [address] [facility] Last Admin: 05/25/16 09:14 Dose: 2 puff Digoxin (Lanoxin -) 0.[address] [facility] Last Admin: 05/25/16 09:13 Dose: 0.125 mg Diltiazem HCl (Cardizem Cd -) [address] [facility] Last Admin: 05/25/16 09:14 Dose: 180 mg Heparin Sodium (Porcine) (Heparin -) 5,[address] [facility] Last Admin: 05/25/16 09:14 Dose: 5,000 unit Hydralazine HCl (Apresoline -) [address] [facility] Last Admin: 05/25/16 09:13 Dose: 25 mg Methylprednisolone Sodium Succinate (Solu-Medrol -) 40 [address] IVPB Q8H-IV [facility] Last Admin: 05/25/16 09:14 Dose: 40 mg Metoprolol Tartrate (Lopressor -) [address] [facility] Last Admin: 05/25/16 09:14 Dose: 25 mg Nystatin (Nystatin Oral Suspension -) 500,[address] [facility] Last Admin: 05/25/16 12:20 Dose: 500,000 units Oxycodone HCl (Roxicodone -) 5 mg PO Q6H PRN Last Admin: 05/24/16 21:12 Dose: 5 mg Sucralfate (Carafate Oral Suspension -) [address] [facility] Last Admin: 05/24/16 21:16 Dose: 1 gm Tiotropium [place] (Spiriva -) [address] [facility] Last Admin: 05/25/16 09:15 Dose: Not Given Valsartan (Diovan -) [address] [facility] Last Admin: 05/25/16 09:13 Dose: 320 mg Warfarin Sodium (Coumadin -) 1 mg PO DAILY@1800 [facility] Last Admin: 05/24/16 17:28 Dose: 1 mg - Objective Vital Signs: Vital Signs Temperature 98 F 05/25/16 08:22 Pulse Rate 85 05/25/16 09:13 Respiratory Rate 20 05/25/16 08:22 Blood Pressure 161/82 05/25/16 08:22 O2 Sat by Pulse Oximetry (%) 95 05/25/16 12:05 Constitutional: Yes: No Distress, Calm Cardiovascular: Yes: Regular Rate and Rhythm Respiratory: Yes: Regular, CTA Bilaterally Gastrointestinal: Yes: Normal Bowel Sounds, Soft Musculoskeletal: Yes: WNL Extremities: Yes: WNL Neurological: Yes: Alert, Oriented Psychiatric: Yes: Alert, Oriented Labs: CBC, BMP 05/25/16 06:20 05/25/16 06:20 INR, PTT INR 2.43 (0.82-1.09) H 05/25/16 06:20 Assessment/Plan - Problems (1) Acute exacerbation of chronic obstructive pulmonary disease (COPD) Code(s): J44.1 - CHRONIC OBSTRUCTIVE PULMONARY DISEASE W (ACUTE) EXACERBATION (2) CHF (congestive heart failure) Code(s): I50.9 - HEART FAILURE, UNSPECIFIED Qualifiers: Congestive heart failure type: unspecified congestive heart failure type Congestive heart failure chronicity: acute Qualified Code(s): I50.9 - Heart failure, unspecified (3) Atrial fibrillation Code(s): I48.91 - UNSPECIFIED ATRIAL FIBRILLATION (4) Hyperlipidemia Code(s): E78.5 - HYPERLIPIDEMIA, UNSPECIFIED (5) Hypertension Code(s): I10 - ESSENTIAL (PRIMARY) HYPERTENSION (6) Respiratory failure, [id number] Code(s): J96.20 - ACUTE AND CHR RESP FAILURE, UNSP W HYPOXIA OR HYPERCAPNIA uti Assessment/Plan (1) Acute exacerbation of chronic obstructive pulmonary disease (COPD) Code(s): J44.1 - CHRONIC OBSTRUCTIVE PULMONARY DISEASE W (ACUTE) EXACERBATION (2) CHF (congestive heart failure) Code(s): I50.9 - HEART FAILURE, UNSPECIFIED Qualifiers: Congestive heart failure type: unspecified congestive heart failure type Congestive heart failure chronicity: acute Qualified Code(s): I50.9 - Heart failure, unspecified (3) Atrial fibrillation Code(s): I48.91 - UNSPECIFIED ATRIAL FIBRILLATION (4) Hyperlipidemia Code(s): E78.5 - HYPERLIPIDEMIA, UNSPECIFIED (5) Hypertension Code(s): I10 - ESSENTIAL (PRIMARY) HYPERTENSION (6) Thrush 7 uti n39.0 plan continue to watch no new issues [facility]
[2016-05-25] MEDS: WARFARIN NA 1 MG TABLET (FP) PO SCH (17:21)
[2016-05-25] MEDS: FUROSEMIDE 40 MG TABLET (FP) PO SCH (17:59)
[2016-05-25] MEDS: SUCRALFATE 1 GM/10 ML UNIT DOSE CUPS PO SCH (21:49)
[2016-05-25] MEDS: ATORVASTATIN CA 10 MG TABLET (FP) PO SCH (21:49)
--- NOTE | 2016-05-25 22:44 | PN ---
Progress Note (short form) - Note Progress Note: CC: s: no cp palps dizzy. sob improved o: Current Medications Albuterol/Ipratropium (Duoneb -) 1 amp NEB QIDR [facility] Last Admin: 05/25/16 18:00 Dose: 1 amp Atorvastatin Calcium (Lipitor -) 10 mg PO HS [facility] Last Admin: 05/25/16 21:49 Dose: 10 mg Budesonide/Formoterol Fumarate (Symbicort 160/4.5mcg -) 2 puff IH BID [facility] Last Admin: 05/25/16 21:49 Dose: 2 puff Digoxin (Lanoxin -) 0.125 mg PO DAILY [facility] Last Admin: 05/25/16 09:13 Dose: 0.125 mg Diltiazem HCl (Cardizem Cd -) 180 mg PO DAILY [facility] Last Admin: 05/25/16 09:14 Dose: 180 mg Furosemide (Lasix -) 40 mg PO DAILY [facility] Last Admin: 05/25/16 17:59 Dose: 40 mg Heparin Sodium (Porcine) (Heparin -) 5,000 unit SQ BID [facility] Last Admin: 05/25/16 21:49 Dose: 5,000 unit Hydralazine HCl (Apresoline -) 25 mg PO BID [facility] Last Admin: 05/25/16 21:49 Dose: 25 mg Methylprednisolone Sodium Succinate (Solu-Medrol -) 40 mg IVPB Q8H-IV [facility] Last Admin: 05/25/16 17:21 Dose: 40 mg Metoprolol Tartrate (Lopressor -) 25 mg PO DAILY [facility] Last Admin: 05/25/16 09:14 Dose: 25 mg Nystatin (Nystatin Oral Suspension -) 500,000 units PO Q6HPO [facility] Last Admin: 05/25/16 17:21 Dose: 500,000 units Oxycodone HCl (Roxicodone -) 5 mg PO Q6H [facility] Last Admin: 05/24/16 21:12 Dose: 5 mg Sucralfate (Carafate Oral Suspension -) 1 gm PO HS [facility] Last Admin: 05/25/16 21:49 Dose: 1 gm Tiotropium [place] (Spiriva -) 1 puff IH DAILY [facility] Last Admin: 05/25/16 09:15 Dose: Not Given Valsartan (Diovan -) 320 mg PO DAILY [facility] Last Admin: 05/25/16 09:13 Dose: 320 mg Warfarin Sodium (Coumadin -) 1 mg PO DAILY@1800 [facility] Last Admin: 05/25/16 17:21 Dose: 1 mg Vital Signs - 24 hr 05/25/16 05/25/16 05/25/16 01:00 05:00 08:00 Temperature 97.8 F 98 F Pulse Rate 84 107 H Respiratory 20 18 20 Rate Blood Pressure 145/64 154/95 O2 Sat by Pulse 96 Oximetry (%) 05/25/16 05/25/16 05/25/16 08:22 09:13 12:05 Temperature 98 F Pulse Rate 83 85 Respiratory 20 Rate Blood Pressure 161/82 O2 Sat by Pulse 95 Oximetry (%) 05/25/16 05/25/16 15:00 17:00 Temperature 97.8 F 97.7 F Pulse Rate 66 70 Respiratory 20 20 Rate Blood Pressure 122/85 148/72 O2 Sat by Pulse Oximetry (%) Intake & Output 05/23/16 05/24/16 05/25/16 05/26/16 07:59 07:59 07:59 07:59 Intake Total 1140 450 700 Output Total 600 Balance 1140 450 100 Weight 139 lb 8 oz 141 lb 6 oz nad, jvd mild elevation vs. prominent v wave rrr s1s2 no mrg diminished air movment, nl effort aaox3 no le e/c/c no diaphoresis/jaundice CBC, BMP 05/25/16 06:20 05/25/16 06:20 echo 01/2014: nl lv, nl rv, mild mr, mild tr, rvsp 43 echo 05/2016: tds; nl lv, nl rv size, mild marcus, mild mr, mild-mod tr, rvsp 40-50 , mod ao root dil cxr: no chf ecg 05/20/16, 05/21/16: afib, rate controlled, occ vpacing, nonspecific st-t changes tele: afib, rate ok, occ vpacing Assessment/Plan 80 f hx afib on coumadin, htn, hld, tachy/maricruz syndrome s/p ppm, copd, pad s/p rle bypass, possible cad (equivocal MIBI), chronic sob/briones/palps likely related to anxiety, esophageal ca s/p laser treatment, here with sob. sob: -current presentation seems more related to copd than chf -no signs acs, ce's neg x2 -cont tx copd per pmd/pulm, - see below regarding diuresis chronic diast CHF: -seems stable presently -initially held lasix due to elevated cr but now on iv steroids, cr stable, so resumed home po lasix 40 bid to avoid vol overload - 05/24 Cr trending up on bid lasix. held afternoon dose, but now with abdominal distension/weakness. Unclear if related to volume. Repeat standing weight stable. Will reassess creatinine in am. - 05/25 Cr improved after transition to daily lasix dosing . No worsened sob or abdominal discomfort, cont. afib: -Rate controlled on dilt plus low dose metopr and dig (dig level ok here) -cont AC with warfarin per inr htn: - reasonable control on current meds, con't tachy/maricruz syndrome s/p ppm: - Stable, cont routine outpt checks pad s/p rle bypass: -Stable, no claudication. possible cad (equivocal MIBI): -No angina, continue medical management (statin, BB, ARB...no ASA (on AC))
[2016-05-26] MEDS: NYSTATIN 500,000 UNITS/5 ML SUSPENSION PO SCH ×3 (00:07→14:10)
[2016-05-26] MEDS: methylPREDNISolone NA SUCC 40 MG/1 ML VIAL IVPB SCH (02:15)
[2016-05-26] MEDS: ALBUTEROL SO4 2.5/IPRATROPIUM 0.5 INH SOL 3 ML VIAL.NEB. NEB SCH ×3 (06:05→11:07)
[2016-05-26 06:16] VITALS: TEMP 97.9
[2016-05-26 07:10] LABS: MCH 30.4 pg (25.7-33.7); MCHC 33.1 g/dl (32.0-36.0); MEAN CELL VOLUME 91.8 fl (80-96); MEAN PLT VOLUME 9.2 fl (7.5-11.1); PLATELET COUNT 365 K/MM3 (134-434); RDW 15.5 % (11.6-15.6); WHITE BLOOD COUNT 17.4 K/mm3 (4.0-10.0)
[2016-05-26 07:26] LABS: INR 2.03 (0.82-1.09); PROTHROMBIN TIME (PATIENT) 22.6 SEC (9.98-11.88)
[2016-05-26 07:34] LABS: CALCIUM 8.9 mg/dL (8.5-10.1)
[2016-05-26 07:36] LABS: COCKROFT - GAULT 37.8505; CREATININE 1.2 mg/dL (0.55-1.02)
--- NOTE | 2016-05-26 09:55 | PN ---
Progress Note, Physician History of Present Illness: Pt alert, dyspnea improved. No chest pain or palpitations - Current Medication List Current Medications: Active Medications Albuterol/Ipratropium (Duoneb -) 1 amp NEB QIDR [facility] Last Admin: 05/26/16 06:05 Dose: 1 amp Atorvastatin Calcium (Lipitor -) 10 mg PO HS [facility] Last Admin: 05/25/16 21:49 Dose: 10 mg Budesonide/Formoterol Fumarate (Symbicort 160/4.5mcg -) 2 puff IH BID [facility] Last Admin: 05/25/16 21:49 Dose: 2 puff Digoxin (Lanoxin -) 0.125 mg PO DAILY [facility] Last Admin: 05/25/16 09:13 Dose: 0.125 mg Diltiazem HCl (Cardizem Cd -) 180 mg PO DAILY [facility] Last Admin: 05/25/16 09:14 Dose: 180 mg Furosemide (Lasix -) 40 mg PO DAILY [facility] Last Admin: 05/25/16 17:59 Dose: 40 mg Heparin Sodium (Porcine) (Heparin -) 5,000 unit SQ BID [facility] Last Admin: 05/25/16 21:49 Dose: 5,000 unit Hydralazine HCl (Apresoline -) 25 mg PO BID [facility] Last Admin: 05/25/16 21:49 Dose: 25 mg Methylprednisolone Sodium Succinate (Solu-Medrol -) 40 mg IVPB Q8H-IV [facility] Last Admin: 05/26/16 02:15 Dose: 40 mg Metoprolol Tartrate (Lopressor -) 25 mg PO DAILY [facility] Last Admin: 05/25/16 09:14 Dose: 25 mg Nystatin (Nystatin Oral Suspension -) 500,000 units PO Q6HPO [facility] Last Admin: 05/26/16 05:57 Dose: 500,000 units Oxycodone HCl (Roxicodone -) 5 mg PO Q6H [facility] Last Admin: 05/24/16 21:12 Dose: 5 mg Sucralfate (Carafate Oral Suspension -) 1 gm PO HS [facility] Last Admin: 05/25/16 21:49 Dose: 1 gm Tiotropium [place] (Spiriva -) 1 puff IH DAILY [facility] Last Admin: 05/25/16 09:15 Dose: Not Given Valsartan (Diovan -) 320 mg PO DAILY [facility] Last Admin: 05/25/16 09:13 Dose: 320 mg Warfarin Sodium (Coumadin -) 1 mg PO DAILY@1800 [facility] Last Admin: 05/25/16 17:21 Dose: 1 mg - Objective Vital Signs: Vital Signs Temperature 97.9 F 05/26/16 06:00 Pulse Rate 89 05/26/16 06:00 Respiratory Rate 18 05/26/16 06:00 Blood Pressure 128/81 05/26/16 06:00 O2 Sat by Pulse Oximetry (%) 98 05/25/16 21:00 Constitutional: No: No Distress Eyes: No: Sclera Icterus HENT: Yes: Atraumatic, Normocephalic Neck: Yes: Supple, Trachea Midline Cardiovascular: Yes: Pulse Irregular. No: JVD Respiratory: Yes: CTA Bilaterally Edema: No Neurological: Yes: Alert, Oriented Labs: CBC, BMP 05/26/16 06:00 05/26/16 06:00 INR, PTT INR 2.03 (0.82-1.09) H 05/26/16 06:00 Problem List - Problems (1) Acute respiratory failure Code(s): J96.00 - ACUTE RESPIRATORY FAILURE, UNSP W HYPOXIA OR HYPERCAPNIA (2) Acute exacerbation of chronic obstructive pulmonary disease (COPD) Code(s): J44.1 - CHRONIC OBSTRUCTIVE PULMONARY DISEASE W (ACUTE) EXACERBATION (3) Atrial fibrillation Code(s): I48.91 - UNSPECIFIED ATRIAL FIBRILLATION (4) CHF (congestive heart failure) Code(s): I50.9 - HEART FAILURE, UNSPECIFIED Qualifiers: Congestive heart failure type: unspecified congestive heart failure type Congestive heart failure chronicity: acute Qualified Code(s): I50.9 - Heart failure, unspecified Assessment/Plan 80 year old lady with history COPD, A.Fibrillation, and history of CHF admitted with acute respiratory failure requiring BiPAP in ER. Dyspnea appears to have been due to respiratory failure due to acute exacerbation of COPD rather than CHF. Pt improving. Suggest: DC solumedrol and switch to Prednisone 40 mg daily antibiotc inhaled bronchodilators O2 to maintain SaO2 >90 Cardiac medications and Warfarin BiPAP PRN
[2016-05-26] MEDS: VALSARTAN 160 MG TABLET (UD) PO SCH (09:58)
[2016-05-26] MEDS: DIGOXIN 0.125 MG TABLET (FP) PO SCH (09:58)
[2016-05-26] MEDS: TIOTROPIUM BROMIDE 18 MCG/INH (DEVICE W/ 5 CAPSULES) IH SCH (09:59)
[2016-05-26] MEDS: HEPARIN NA (PORCINE) 5,000 UNITS/ML 1ML VIAL SQ SCH (09:59)
[2016-05-26] MEDS: hydrALAZINE HCL 25 MG TABLET (FP) PO SCH (09:59)
[2016-05-26] MEDS: FUROSEMIDE 40 MG TABLET (FP) PO SCH (09:59)
[2016-05-26] MEDS: METOPROLOL TARTRATE 25 MG TABLET (FP) PO SCH (09:59)
[2016-05-26] MEDS ORDERED: predniSONE 20 MG TABLET (UD) PO SCH (10:00)
[2016-05-26] MEDS: BUDESONIDE/FORMETEROL FUMARATE 160/4.5 mcg INHALER IH SCH (10:00)
[2016-05-26 10:01] LABS: METAMYELOCYTE 3 % (0-2)
[2016-05-26 10:02] LABS: PLATELET ESTIMATE ADEQUATE (NORMAL); POLYCHROMASIA 1+
[2016-05-26] MEDS ORDERED: POTASSIUM CHLORIDE TABS 20 MEQ TABLET.ER (FP) PO ONE (12:27)
[2016-05-26 14:05] VITALS: BP 122/55; PULSE 70
--- NOTE | 2016-05-26 15:00 | DS ---
Physical Examination Vital Signs: Vital Signs Temperature 97.9 F 05/26/16 14:04 Pulse Rate 70 05/26/16 14:04 Respiratory Rate 20 05/26/16 14:04 Blood Pressure 122/55 05/26/16 14:04 O2 Sat by Pulse Oximetry (%) 98 05/25/16 21:00 Constitutional: Yes: Well Nourished, No Distress, Calm Cardiovascular: Yes: Regular Rate and Rhythm. No: Gallop, Murmur, Rub Respiratory: Yes: Regular, CTA Bilaterally, On Nasal O2. No: Rales, Rhonchi, Wheezes Gastrointestinal: Yes: Normal Bowel Sounds, Soft. No: Distention, Tenderness Extremities: Yes: WNL Edema: No Labs: CBC, BMP 05/26/16 06:00 05/26/16 06:00 Discharge Summary Reason For Visit: COPD W/ACUTE EXACERBATION/SOB Current Active Problems Acute respiratory failure (Acute) C. difficile colitis (Acute) CHF (congestive heart failure) (Acute) COPD (chronic obstructive pulmonary disease) (Acute) Failure to thrive in adult (Acute) Respiratory failure, [id number] (Acute) Shortness of breath (Acute) Hospital Course: (1) Acute exacerbation of chronic obstructive pulmonary disease (COPD) Code(s): J44.1 - CHRONIC OBSTRUCTIVE PULMONARY DISEASE W (ACUTE) EXACERBATION (2) CHF (congestive heart failure) Code(s): I50.9 - HEART FAILURE, UNSPECIFIED Qualifiers: Congestive heart failure type: unspecified congestive heart failure type Congestive heart failure chronicity: acute Qualified Code(s): I50.9 - Heart failure, unspecified (3) Atrial fibrillation Code(s): I48.91 - UNSPECIFIED ATRIAL FIBRILLATION (4) Hyperlipidemia Code(s): E78.5 - HYPERLIPIDEMIA, UNSPECIFIED (5) Hypertension Code(s): I10 - ESSENTIAL (PRIMARY) HYPERTENSION (6) Respiratory failure, [id number] Code(s): J96.20 - ACUTE AND CHR RESP FAILURE, UNSP W HYPOXIA OR HYPERCAPNIA (7) Thrush Ms Moncada is a very pleasant 80 year old female who comes in with a COPD exacerbation. She was prescribed home oxygen in the past but stopped using it as she felt she no longer needed it. She became hypoxic and came in. She was admitted to the hospital on telemetry. She was seen by pulmonary. She was started on IV solumedrol, advair, spiriva, and duonebs. She improved significantly. She complained on burning on swallowing and was found to have thrush. She was started on nystatin swish and swallow and this resolved. She was seen by cardiology and her lasix was decreased to 40mg daily. Today she is feeling well and is safe for discharge home. 35 minutes spent in preparation of this discharge Condition: Stable - Instructions Diet, Activity, Other Instructions: resume previous diet and activity. Continuous home oxygen Referrals: Maxim Larson MD [Staff Physician] - Esau Rivera MD [Staff Physician] - Disposition: HOME - Home Medications Comprehensive Discharge Medication List: Ambulatory Orders Atorvastatin Ca [Lipitor] 10 mg PO HS 12/11/13 Digoxin [Digitek] 125 mcg PO DAILY 03/17/15 Diltiazem Cd [Cardizem Cd -] 180 mg PO DAILY 03/17/15 Hydralazine HCl [Apresoline -] 25 mg PO BID 03/17/15 Metoprolol Tartrate [Lopressor -] 25 mg PO DAILY 03/17/15 Valsartan [Diovan] 320 mg PO DAILY 03/17/15 Magnesium Oxide [Mag-Ox -] 400 mg PO BID tablet 04/20/15 Warfarin Na [Coumadin -] 1 mg PO DAILY@1800 tablet 04/20/15 Sertraline HCl [Zoloft -] 25 mg PO DAILY 05/20/16 Albuterol Sulfate Inhaler - [Ventolin HFA Inhaler -] 1 - 2 inh PO QID #1 inhaler 05/26/16 Budesonide/Formeterol Fumarate [SYMBICORT 160/4.5mcg -] 2 puff IH BID #1 inhaler 05/26/16 Furosemide [Lasix -] 40 mg PO DAILY #30 tablet 05/26/16 Prednisone [Deltasone -] 5 mg PO ASDIR #32 tab 05/26/16 Tiotropium [place] [Spiriva] 1 puff IH DAILY #1 inh 05/26/16
== END 2016-05-26 15:50 | disposition home or self-care (01) | DRG 189 ==
LOC: JER 14:59 → JERBED 16:51 → J4W 22:05
PROVIDERS: ADMIT Internal Medicine; ATTEND Internal Medicine
PROC: 5A09557 Assistance with Respiratory Ventilation, Greater than 96 Consecutive Hours, Continuous Positive Airway Pressure (ICD-10-PCS; principal; 2016-05-20)
DX: J96.20 Acute and chronic respiratory failure, unspecified whether with hypoxia or hypercapnia (principal); J44.1 Chronic obstructive pulmonary disease with (acute) exacerbation; N39.0 Urinary tract infection, site not specified; I50.32 Chronic diastolic (congestive) heart failure; B37.0 Candidal stomatitis; I11.0 Hypertensive heart disease with heart failure; I48.91 Unspecified atrial fibrillation; E78.5 Hyperlipidemia, unspecified; I73.9 Peripheral vascular disease, unspecified; Z87.891 Personal history of nicotine dependence; Z95.0 Presence of cardiac pacemaker; I25.10 Atherosclerotic heart disease of native coronary artery without angina pectoris; Z98.61 Coronary angioplasty status; K21.9 Gastro-esophageal reflux disease without esophagitis; R62.7 Adult failure to thrive
CPT/HCPCS: 36415; 36600; 71010-TC; 80048; 80053; 80162; 81003; 81015; 82375; 82550; 82803; 83050; 83605; 83735; 84100; 84484; 85025; 85610; 85730; 86850; 86900; 86901; 87040; 87070; 87086; 87186; 87205; 93005; 93010; 93306-TC; 94640; 94660; 97116-GP; 97161-GP; 99285-25; J1644

== ENCOUNTER 2017-05-09 07:56 | Inpatient (IN) | payer OTHER ==
--- NOTE | 2017-05-09 08:04 | PDOC ---
History of Present Illness - General History Source: Patient Exam Limitations: No Limitations - History of Present Illness Initial Comments: 05/09/17 08:53 The patient is a 81 year old female with a significant PMH of COPD ( noncompliant with home O2), asthma, AFib who presents to the emergency department with approximately 1 week of intermittent shortness of breath which worsened this morning. The patient reports having difficulty breathing with associated chest tightness mostly at night for the past week. She notes waking up at 3AM due to her shortness of breath, and reports taking her nebulizer at home to minimal relief. The patient also notes associated lightheadedness with her symptoms. The patient denies headache and dizziness. Denies fever, chills, nausea, vomit, diarrhea and constipation. Denies dysuria, frequency, urgency and hematuria. Allergies: Melatonin, Vancomycin, Zolpidem, Zolpidem tartrate. Past surgical history: Ulcer perforation repair. Appendectomy. PPM (2010). Social history: Former smoker. No reported alcohol or drug use. PCP: Dr. Larson Roadway Designer: Dr. Torres Head Usher: Dr. Rivera <Mesfin Nolasco - Last Filed: 05/09/17 08:53> <Genet Venegas - Last Filed: 05/09/17 12:31> <Laura Fay - Last Filed: 05/09/17 12:51> - General Chief Complaint: Shortness of Breath Stated Complaint: SHORTNESS OF BREATH Time Seen by Provider: 05/09/17 08:03 Past History <Mesfin Nolasco - Last Filed: 05/09/17 08:53> - Past Medical History Anemia: No Asthma: Yes Cancer: No Cardiac Disorders: Yes (PPM, AFIB) CVA: No COPD: Yes CHF: Yes Dementia: No Diabetes: No GI Disorders: Yes (REFLUX, GASTRIC/PERF BLEEDING ULCER, GERD) Disorders: Yes (URINARY DRIBBLING) HTN: Yes Hypercholesterolemia: Yes Liver Disease: No Seizures: No Thyroid Disease: No - Surgical History Abdominal Surgery: Yes (PERF BLEEDING ULCER) Appendectomy: Yes Cardiac Surgery: Yes (PPM 2010) Cholecystectomy: No Lung Surgery: No Neurologic Surgery: No Orthopedic Surgery: No - Immunization History Td Vaccination: Yes Immunization Up to Date: Yes - Suicide/Smoking/Psychosocial Hx Smoking Status: No Smoking History: Former smoker Have you smoked in the past 12 months: No Number of Cigarettes Smoked Daily: 0 If you are a former smoker, when did you quit?: 2002 'Breaking Loose' booklet given: 12/11/13 Hx Alcohol Use: No Drug/Substance Use Hx: No Substance Use Type: None Hx Substance Use Treatment: No <Genet Venegas - Last Filed: 05/09/17 12:31> <Laura Fay - Last Filed: 05/09/17 12:51> - Past Medical History Allergies/Adverse Reactions: Allergies Allergy/AdvReac Type Severity Reaction Status Date / Time melatonin Allergy Mild Nausea Verified 05/09/17 08:33 vancomycin AdvReac Mild Nausea Verified 05/09/17 08:33 zolpidem AdvReac Unknown Verified 05/09/17 08:33 zolpidem tartrate AdvReac Unknown Verified 05/09/17 08:33 [From [facility]] Home Medications: Ambulatory Orders Ascorbic Acid [Vitamin C -] 500 mg PO DAILY 05/09/17 Atorvastatin Ca [Lipitor] 10 mg PO HS 05/09/17 Cholecalciferol (Vitamin D3) [Vitamin D3] 400 unit PO DAILY 05/09/17 Cyanocobalamin [Vitamin B12 -] 1,000 mcg PO DAILY 05/09/17 Digoxin [Lanoxin -] 0.125 mg PO DAILY 05/09/17 Diltiazem HCl [Tiazac] 180 mg PO DAILY 05/09/17 Fluticasone/Vilanterol [Breo Ellipta 100-25 Mcg INH] 1 each IH DAILY 05/09/17 Hydralazine HCl 25 mg PO BID 05/09/17 Magnesium Oxide [Magnesium] 400 mg PO BID 05/09/17 Metoprolol Tartrate 25 mg PO DAILY 05/09/17 Multivitamin/Iron/Folic Acid [Centrum Adults Tablet] 1 each PO DAILY 05/09/17 Pyridoxine HCl (B-6) [Vitamin B6] 50 mg PO DAILY 05/09/17 Sertraline HCl 25 mg PO DAILY 05/09/17 Valsartan 320 mg PO DAILY 05/09/17 oxyCODONE HCL [Roxicodone -] 5 mg PO BID PRN 05/09/17 Review of Systems - Review of Systems Able to Perform ROS?: Yes Comments:: 05/09/17 08:53 GENERAL/CONSTITUTIONAL: No fever or chills. No weakness. HEAD, EYES, EARS, NOSE AND THROAT: No change in vision. No ear pain or discharge. No sore throat. CARDIOVASCULAR: (+) Shortness of breath with associated chest tightness. RESPIRATORY: No cough, wheezing, or hemoptysis. GASTROINTESTINAL: No nausea, vomiting, diarrhea or constipation. GENITOURINARY: No dysuria, frequency, or change in urination. MUSCULOSKELETAL: No joint or muscle swelling or pain. No neck or back pain. SKIN: No rash NEUROLOGIC: (+) Lightheadedness. No headache, vertigo, loss of consciousness, or change in strength/sensation. ENDOCRINE: No increased thirst. No abnormal weight change. HEMATOLOGIC/LYMPHATIC: No anemia, easy bleeding, or history of blood clots. ALLERGIC/IMMUNOLOGIC: No hives or skin allergy. <Mesfin Nolasco - Last Filed: 05/09/17 08:53> *Physical Exam - Vital Signs Last Vital Signs Temp Pulse Resp BP Pulse Ox 84 18 170/90 100 05/09/17 08:27 05/09/17 08:27 05/09/17 08:27 05/09/17 08:27 - Physical Exam Comments: 05/09/17 08:53 GENERAL: (+) Speaking in incomplete sentences. Awake, alert, and fully oriented , in no acute distress HEAD: No signs of trauma EYES: PERRLA, EOMI, sclera anicteric, conjunctiva clear ENT: Auricles normal inspection, hearing grossly normal, nares patent, oropharynx clear without exudates. Moist mucosa NECK: Normal ROM, supple, no lymphadenopathy, JVD, or masses LUNGS: (+) Diminished breath sounds. (+) Accessory muscle use. Breath sounds equal, clear to auscultation bilaterally. No wheezes and no crackles HEART: Regular rate and rhythm, normal S1 and S2, no murmurs, rubs or gallops ABDOMEN: Soft, nontender, normoactive bowel sounds. No guarding, no rebound. No masses EXTREMITIES: Normal range of motion, no edema. No clubbing or cyanosis. No cords, erythema, or tenderness NEUROLOGICAL: Cranial nerves II through XII grossly intact. SKIN: Warm, Dry, normal turgor, no rashes or lesions noted. <Mesfin Nolasco - Last Filed: 05/09/17 08:53> - Vital Signs Last Vital Signs Temp Pulse Resp BP Pulse Ox 84 18 170/90 100 05/09/17 08:27 05/09/17 08:27 05/09/17 08:27 05/09/17 08:27 <Laura Fay - Last Filed: 05/09/17 12:51> ED Treatment Course - LABORATORY CBC & Chemistry Diagram: 05/09/17 08:35 05/09/17 08:35 - Medications Given in the ED: ED Medications Discontinued Medications Generic Name Dose Route Start Last Admin Trade Name Krystal PRN Reason Stop Dose Admin Albuterol/Ipratropium 1 amp 05/09/17 08:05 05/09/17 08:30 Duoneb - NEB 05/09/17 08:06 1 amp ONCE ONE Administration Albuterol/Ipratropium 1 amp 05/09/17 08:05 05/09/17 08:07 Duoneb - NEB 05/09/17 08:06 1 amp ONCE ONE Administration Methylprednisolone Sodium Succinate 125 mg 05/09/17 08:05 05/09/17 08:40 Solu-Medrol - IVPB 05/09/17 08:06 125 mg ONCE ONE Administration <Mesfin Nolasco - Last Filed: 05/09/17 08:53> - LABORATORY CBC & Chemistry Diagram: 05/09/17 08:35 05/09/17 08:35 <Genet Venegas - Last Filed: 05/09/17 12:31> - LABORATORY CBC & Chemistry Diagram: 05/09/17 08:35 05/09/17 08:35 - ADDITIONAL ORDERS Additional order review: Laboratory Results 05/09/17 05/09/17 05/09/17 09:14 09:08 08:35 PT with INR 25.70 H INR 2.27 H Anticoagulation Therapy No Result Required. Puncture Site Right radial ABG pH 7.42 ABG pCO2 at Pt Temp 39.5 ABG pO2 at Pt Temp 77.8 ABG HCO3 25.2 ABG O2 Sat (Measured) 96.1 ABG O2 Content 15.5 ABG Base Excess 1.3 Gil Test Positive O2 Delivery Device No Result Required. Oxygen Flow Rate Yes Vent Mode No Result Required. Vent Rate No Result Required. Mechanical Rate No Result Required. Pressure Support Vent No Result Required. Sodium Potassium Chloride Carbon Dioxide Anion Gap BUN Creatinine Creat Clearance w eGFR Random Glucose Calcium Total Bilirubin AST ALT Alkaline Phosphatase Creatine Kinase Troponin I B-Natriuretic Peptide Total Protein Albumin Digoxin Cancelled 05/09/17 08:35 PT with INR INR Anticoagulation Therapy Puncture Site ABG pH ABG pCO2 at Pt Temp ABG pO2 at Pt Temp ABG HCO3 ABG O2 Sat (Measured) ABG O2 Content ABG Base Excess Gil Test O2 Delivery Device Oxygen Flow Rate Vent Mode Vent Rate Mechanical Rate Pressure Support Vent Sodium 141 Potassium 3.9 Chloride 108 H Carbon Dioxide 30 Anion Gap 3 L BUN 11 Creatinine 1.0 Creat Clearance w eGFR 53.21 Random Glucose 119 H Calcium 8.6 Total Bilirubin 0.4 AST 37 ALT 44 Alkaline Phosphatase 94 Creatine Kinase 88 Troponin I 0.05 B-Natriuretic Peptide 3943.85 H Total Protein 7.3 Albumin 3.9 Digoxin 0.9907 05/09/17 08:35 RBC 4.07 MCV 91.6 MCHC 33.0 RDW 16.0 H MPV 9.4 Neutrophils % 87.4 H Lymphocytes % 5.9 L Monocytes % 6.1 Eosinophils % 0.2 D Basophils % 0.4 - Medications Given in the ED: ED Medications Discontinued Medications Generic Name Dose Route Start Last Admin Trade Name Freq PRN Reason Stop Dose Admin Albuterol/Ipratropium 1 amp 05/09/17 08:05 05/09/17 08:30 Duoneb - NEB 05/09/17 08:06 1 amp ONCE ONE Administration Albuterol/Ipratropium 1 amp 05/09/17 08:05 05/09/17 08:07 Duoneb - NEB 05/09/17 08:06 1 amp ONCE ONE Administration Azithromycin 500 mg/ Dextrose 250 mls @ 250 mls/hr 05/09/17 09:20 05/09/17 09 :33 IVPB 05/09/17 10:19 250 mls/hr ONCE ONE Administration Ceftriaxone Sodium 1 gm/ 50 mls @ 100 mls/hr 05/09/17 09:20 05/09/17 09:28 Dextrose IVPB 05/09/17 09:49 100 mls/hr ONCE ONE Administration Methylprednisolone Sodium Succinate 125 mg 05/09/17 08:05 05/09/17 08:40 Solu-Medrol - IVPB 05/09/17 08:06 125 mg ONCE ONE Administration <Laura Fay - Last Filed: 05/09/17 12:51> Medical Decision Making - Medical Decision Making 05/09/17 08:47 Ms. Moncada is an 81 year-old female with a PMH of HTN, HLD, CAD, tachy/maricruz syndrome s/p PPM, afib on coumadin, PAD s/p RLE bypass, asthma/COPD (should be on home o2?), PUD, GERD, recent c.diff, esophageal cancer s/p laser therapy, and anxiety. She presents emergency department with a complaint of shortness of breath. Patient states she's had shortness of breath for the past week. She states it occurred at 3 in the morning and then self resolved. Last night however her short of breath did not resolve She denies chest pain, but states due to her rapid and deep breathing. Because her chest feels uncomfortable. No recent travel No lower extremity edema Compliant with all medications Patient denies fever, sweats, chills. She denies n/v/d/c. She denies chest pain , palpitations, orthopnea, and lower extremity edema. Pt given Nebs and placed on BiPAP PAST MEDICAL HISTORY: Hypertension Hyperlipidemia Coronary artery disease Diastolic heart failure Atrial fibrillation on coumadin Tachy/maricruz syndrome s/p PPM Peripheral arterial disease s/p RLE bypass Esophageal cancer s/p laser treatment C. diff Anxiety PAST SURGICAL HISTORY: Appendectomy Hysterectomy Permanent Pacemaker DD: COPD exacerbation, pneumonia, bronchitis, chf, fluid overloading On exam: RRR Diminished breath sounds No abd tenderness no lower extremity edema Will do: Labs CXR EKG BiPAP ABG Re Assess EKG: Paced at 68 bpm 05/09/17 10:23 Laboratory Tests 05/09/17 05/09/17 05/09/17 08:35 08:35 08:35 WBC 12.6 H Hgb 12.3 Hct 37.3 Plt Count 243 D Neutrophils % 87.4 H Lymphocytes % 5.9 L INR 2.27 H ABG pH ABG pCO2 at Pt Temp ABG pO2 at Pt Temp ABG HCO3 Sodium 141 Potassium 3.9 Chloride 108 H Carbon Dioxide 30 BUN 11 Creatinine 1.0 Random Glucose 119 H Troponin I 0.05 B-Natriuretic Peptide 3943.85 H 05/09/17 09:14 WBC Hgb Hct Plt Count Neutrophils % Lymphocytes % INR ABG pH 7.42 ABG pCO2 at Pt Temp 39.5 ABG pO2 at Pt Temp 77.8 ABG HCO3 25.2 Sodium Potassium Chloride Carbon Dioxide BUN Creatinine Random Glucose Troponin I B-Natriuretic Peptide 05/09/17 12:31 CXR: bibasiler atalectasis, pleural effusion ? pneumonia Case reviewed with Hospitalist Will admit to their service Calls placed to Dr Diez and Dr Lopez Clinical Impression: COPD exacerbation, initial presentation Pneumonia, initial presentation <Genet Venegas - Last Filed: 05/09/17 12:31> - Medical Decision Making 05/09/17 12:[address] Quijano (Cardio). 05/09/17 12:[address] Rivera (Pulmonary). <Laura Fay - Last Filed: 05/09/17 12:51> *DC/Admit/Observation/Transfer - Attestations Scribe Attestion: 05/09/17 08:54 Documentation prepared by Mesfin Nolasco, acting as certified medical dosimetrist for Genet Venegas MD. <Mesfin Nolasco - Last Filed: 05/09/17 08:53> - Discharge Dispostion Admit: Yes <Genet Venegas - Last Filed: 05/09/17 12:31> <Laura Fay - Last Filed: 05/09/17 12:51> Diagnosis at time of Disposition: Respiratory failure, [id number] Qualifiers: Respiratory failure complication: hypercapnia Qualified Code(s): J96.22 - Acute and chronic respiratory failure with hypercapnia - Discharge Dispostion Condition at time of disposition: Stable
[2017-05-09] MEDS ORDERED: methylPREDNISolone NA SUCC 125 MG/2 ML VIAL IVPB ONE (08:05)
[2017-05-09] MEDS ORDERED: ALBUTEROL SO4 2.5/IPRATROPIUM 0.5 INH SOL 3 ML VIAL.NEB. NEB ONE ×3 (08:05→08:12)
[2017-05-09] MEDS ORDERED: methylPREDNISolone NA SUCC 125 MG/2 ML VIAL ONE (08:13)
[2017-05-09 08:37] VITALS: BMI 21.9
[2017-05-09 09:01] LABS: BASO % 0.4 % (0-2.0); EOS % 0.2 % (0-4.5); HEMATOCRIT 37.3 % (32.4-45.2); HEMOGLOBIN 12.3 GM/dL (10.7-15.3); LYMPH % 5.9 % (8-40); MCH 30.2 pg (25.7-33.7); MEAN CELL VOLUME 91.6 fl (80-96); MEAN PLT VOLUME 9.4 fl (7.5-11.1); MONO % 6.1 % (3.8-10.2); NEUT % 87.4 % (42.8-82.8); PLATELET COUNT 243 K/MM3 (134-434); RBC 4.07 M/mm3 (3.60-5.2); WHITE BLOOD COUNT 12.6 K/mm3 (4.0-10.0)
[2017-05-09 09:06] LABS: INR 2.27 (0.82-1.09); PROTHROMBIN TIME (PATIENT) 25.7 SEC (9.98-11.88)
[2017-05-09 09:16] LABS: ARTERIAL BLD GAS O2 SATURATION 96.1 % (90-98.9); ARTERIAL BLOOD GAS BASE EXCESS 1.3 meq/l (-2-2); ARTERIAL BLOOD GAS PCO2 39.5 mmHg (35-45); ARTERIAL BLOOD GAS PO2 77.8 mmHg (68-100); ARTERIAL BLOOD GAS pH 7.42 (7.35-7.45)
[2017-05-09 09:17] LABS: ALLENS TEST POSITIVE
[2017-05-09] MEDS ORDERED: AZITHROMYCIN IVPB 500 MG in DEXTROSE 5%-WATER - 250 ML IVPB ONE (09:20)
[2017-05-09] MEDS ORDERED: CEFTRIAXONE 1 GM in DEXTROSE 5%-WATER - 50 ML IVPB ONE (09:20)
[2017-05-09] MEDS ORDERED: CEFTRIAXONE 1 GM/50 ML BAG ONE (09:47)
[2017-05-09] MEDS ORDERED: AZITHROMYCIN IVPB 250 ML IVPB ONE (09:47)
[2017-05-09 09:55] LABS: ALBUMIN 3.9 g/dl (3.4-5.0); ANION GAP 3 (8-16); BLOOD UREA NITROGEN 11 mg/dL (7-18); CALCIUM 8.6 mg/dL (8.5-10.1); CHLORIDE 108 mmol/L (98-107); CO2 30 mmol/L (21-32); GLUCOSE,RANDOM 119 mg/dL (74-106); POTASSIUM 3.9 mmol/L (3.5-5.1); SODIUM 141 mmol/L (136-145)
[2017-05-09 10:01] LABS: ALK PHOS 94 U/L (45-117); BILIRUBIN,TOTAL 0.4 mg/dL (0.2-1.0); N-TERMINAL BNP 3943.85 pg/ml (5-450); SGOT/AST 37 U/L (15-37); SGPT/ALT 44 U/L (12-78); TOT PROT 7.3 g/dl (6.4-8.2)
--- NOTE | 2017-05-09 16:43 | HP ---
CHIEF COMPLAINT: Shortness of breath PCP: Dr. Larson HISTORY OF PRESENT ILLNESS: This is an 81 year old female with PMHx of COPD (non-compliant with home O2), asthma, a.fib, CAD, PAD s/p RLE bypass, PUD, GERD, anxiety, who presented to the ED with increased shortness of breath. The patient reports that over the past week she has had increased shortness of breath which worsened this morning and did not respond to her nebulizer treatment. She states at times she also feels dizzy, however she states she has had that for a year now. She denies any chest pain, palpitations, nausea, vomiting, diarrhea, urinary symptoms, lower extremity swelling. ER course was notable for: (1) Pulse 84, BP 170/90, resp 18, O2 100% on bipap 35 (2) WBC 12.6 (3) BNP 3942 (4) Chest X-ray with some minimal pleural fluid at both bases, some congestive changes and a patchy right infiltrate with questionable early left base infiltrate Recent Travel: denies PAST MEDICAL HISTORY: as above Social History: Smoking: denies Alcohol: denies Drugs: denies Family History: Allergies melatonin Allergy (Mild, Verified 05/09/17 08:33) Nausea doesn't agree with me vancomycin Adverse Reaction (Mild, Verified 05/09/17 08:33) Nausea zolpidem Adverse Reaction (Unknown, Verified 05/09/17 08:33) zolpidem tartrate [From Ambien] Adverse Reaction (Unknown, Verified 05/09/17 08: 33) HOME MEDICATIONS: Home Medications Medication Instructions Recorded Ascorbic Acid [Vitamin C -] 500 mg PO DAILY 05/09/17 Atorvastatin Ca [Lipitor] 10 mg PO HS 05/09/17 Cholecalciferol (Vitamin D3) 400 unit PO DAILY 05/09/17 [Vitamin D3] Cyanocobalamin [Vitamin B12 -] 1,000 mcg PO DAILY 05/09/17 Digoxin [Lanoxin -] 0.125 mg PO DAILY 05/09/17 Diltiazem HCl [Tiazac] 180 mg PO DAILY 05/09/17 Fluticasone/Vilanterol [Breo 1 each IH DAILY 05/09/17 Ellipta 100-25 Mcg INH] Hydralazine HCl 25 mg PO BID 05/09/17 Magnesium Oxide [Magnesium] 400 mg PO BID 05/09/17 Metoprolol Tartrate 25 mg PO DAILY 05/09/17 Multivitamin/Iron/Folic Acid 1 each PO DAILY 05/09/17 [Centrum Adults Tablet] Pyridoxine HCl (B-6) [Vitamin B6] 50 mg PO DAILY 05/09/17 Sertraline HCl 25 mg PO DAILY 05/09/17 Valsartan 320 mg PO DAILY 05/09/17 oxyCODONE HCL [Roxicodone -] 5 mg PO BID PRN 05/09/17 REVIEW OF SYSTEMS CONSTITUTIONAL: Absent: fever, chills, diaphoresis, generalized weakness, malaise, loss of appetite, weight change HEENT: Absent: rhinorrhea, nasal congestion, throat pain, throat swelling, difficulty swallowing, mouth swelling, ear pain, eye pain, visual changes CARDIOVASCULAR: Absent: chest pain, syncope, palpitations, irregular heart rate , lightheadedness, peripheral edema RESPIRATORY: Increased shortness of breath that worsened this morning around 3am , it did not respond to nebulizer. Absent: cough, orthopnea, stridor, hemoptysis GASTROINTESTINAL:Absent: abdominal pain, abdominal distension, nausea, vomiting , diarrhea, constipation, melena, hematochezia GENITOURINARY: Absent: dysuria, frequency, urgency, hesitancy, hematuria, flank pain, genital pain MUSCULOSKELETAL: Absent: myalgia, arthralgia, joint swelling, back pain, neck pain SKIN: Absent: rash, itching, pallor HEMATOLOGIC/IMMUNOLOGIC: Absent: easy bleeding, easy bruising, lymphadenopathy, frequent infections ENDOCRINE:Absent: unexplained weight gain, unexplained weight loss, heat intolerance, cold intolerance NEUROLOGIC: Absent: headache, focal weakness or paresthesias, dizziness, unsteady gait, seizure, mental status changes, bladder or bowel incontinence PSYCHIATRIC: Absent: anxiety, depression, suicidal or homicidal ideation, hallucinations. PHYSICAL EXAMINATION Vital Signs - 24 hr 05/09/17 05/09/17 05/09/17 08:00 08:27 09:00 Pulse Rate 84 Pulse Rate [ Apical] Respiratory 18 Rate Blood Pressure 170/90 Blood Pressure [Left Arm] O2 Sat by Pulse 100 100 100 Oximetry (%) 05/09/17 13:05 Pulse Rate Pulse Rate [ 70 Apical] Respiratory Rate Blood Pressure Blood Pressure 156/64 [Left Arm] O2 Sat by Pulse 99 Oximetry (%) GENERAL: Awake, alert, and fully oriented, in no acute distress. HEAD: Normal with no signs of trauma. EYES: Pupils equal, round and reactive to light, extraocular movements intact, sclera anicteric, conjunctiva clear. No lid lag. EARS, NOSE, THROAT: Ears normal, nares patent, oropharynx clear without exudates. Moist mucous membranes. NECK: Normal range of motion, supple without lymphadenopathy, JVD, or masses. LUNGS: On Bipap. B/l wheezing and rhonchi. HEART: Regular rate and rhythm, normal S1 and S2 without murmur, rub or gallop. ABDOMEN: Soft, nontender, not distended, normoactive bowel sounds, no guarding, no rebound MUSCULOSKELETAL: Normal range of motion at all joints. No bony deformities or tenderness. No CVA tenderness. UPPER EXTREMITIES: 2+ pulses, warm, well-perfused. No cyanosis. No clubbing. No peripheral edema. LOWER EXTREMITIES: 2+ pulses, warm, well-perfused. No calf tenderness. No peripheral edema. NEUROLOGICAL: Unable to assess CN, patient on Bipap PSYCHIATRIC: Cooperative SKIN: Warm, dry, normal turgor, no rashes or lesions noted, normal capillary refill. Laboratory Results - last 24 hr 05/09/17 05/09/17 05/09/17 08:35 08:35 08:35 WBC 12.6 H RBC 4.07 Hgb 12.3 Hct 37.3 MCV 91.6 MCH 30.2 MCHC 33.0 RDW 16.0 H Plt Count 243 D MPV 9.4 Neutrophils % 87.4 H Lymphocytes % 5.9 L Monocytes % 6.1 Eosinophils % 0.2 D Basophils % 0.4 PT with INR 25.70 H INR 2.27 H Anticoagulation Therapy Puncture Site ABG pH ABG pCO2 at Pt Temp ABG pO2 at Pt Temp ABG HCO3 ABG O2 Sat (Measured) ABG O2 Content ABG Base Excess Gil Test O2 Delivery Device Oxygen Flow Rate Vent Mode Vent Rate Mechanical Rate Pressure Support Vent Sodium 141 Potassium 3.9 Chloride 108 H Carbon Dioxide 30 Anion Gap 3 L BUN 11 Creatinine 1.0 Creat Clearance w eGFR 53.21 Random Glucose 119 H Calcium 8.6 Total Bilirubin 0.4 AST 37 ALT 44 Alkaline Phosphatase 94 Creatine Kinase 88 Troponin I 0.05 B-Natriuretic Peptide 3943.85 H Total Protein 7.3 Albumin 3.9 Digoxin 0.9907 05/09/17 05/09/17 09:08 09:14 WBC RBC Hgb Hct MCV MCH MCHC RDW Plt Count MPV Neutrophils % Lymphocytes % Monocytes % Eosinophils % Basophils % PT with INR INR Anticoagulation Therapy No Result Required. Puncture Site Right radial ABG pH 7.42 ABG pCO2 at Pt Temp 39.5 ABG pO2 at Pt Temp 77.8 ABG HCO3 25.2 ABG O2 Sat (Measured) 96.1 ABG O2 Content 15.5 ABG Base Excess 1.3 Gil Test Positive O2 Delivery Device No Result Required. Oxygen Flow Rate Yes Vent Mode No Result Required. Vent Rate No Result Required. Mechanical Rate No Result Required. Pressure Support Vent No Result Required. Sodium Potassium Chloride Carbon Dioxide Anion Gap BUN Creatinine Creat Clearance w eGFR Random Glucose Calcium Total Bilirubin AST ALT Alkaline Phosphatase Creatine Kinase Troponin I B-Natriuretic Peptide Total Protein Albumin Digoxin Cancelled Assessment: This is an 81 year old female with PMHx of COPD (non-compliant with home O2), asthma, a.fib, CAD, PAD s/p RLE bypass, PUD, GERD, anxiety, who presented to the ED with increased shortness of breath. Plan: 1) Acute COPD exacerbation - Solumedrol 40mg IVPB q8h - Albuterol nebs prn - Continue Breo - Bipap as needed, keep spO2 >90% - F/u pulmonary consult 2) Community acquired pneumonia - Chest X-ray with some minimal pleural fluid at both bases, some congestive changes and a patchy right infiltrate with questionable early left base infiltrate - Ceftriaxone (05/09- ) - Azithromycin (05/09- ) - Leukocytosis, trend 3) HTN - Valsartan - Hydralazine - Metoprolol 4) Hyperlipidemia - Lipitor 5) A.fib - Continue dig - Continue Diltiazem 6) F/E/N: - Monitor electrolytes - NPO while on bipap 7) Prophylaxis: - Heparin 5,000u sq bid 8) Dispo: - Requires continued inpatient care CODE STATUS: FULL CODE Visit type - Emergency Visit Emergency Visit: Yes ED Registration Date: 05/09/17 Care time: The patient presented to the Emergency Department on the above date and was hospitalized for further evaluation of their emergent condition. - New Patient This patient is new to me today: Yes Date on this admission: 05/09/17 - Critical Care Critical Care patient: No Hospitalist Screening - Colonoscopy Questionnaire Colonoscopy Questionnaire: Colonoscopy Questionnaire - Patient: 50 - 75 years old and never had a screening colonoscopy: No History of colon or rectal polyps, or CA: No History of IBD, Crohn's disease or UC: No History of abdominal radiation therapy as a child: No - Relative: 1 with colon or rectal CA, or polyps at age 60 or younger: No Colon or rectal CA diagnosed at age 45 or younger: No Multiple relatives with colon or rectal CA: No - Outcome: Screening Result: Negative Screen
--- NOTE | 2017-05-09 17:45 | EKG ---
Test Reason : Blood Pressure : / mmHG Vent. Rate : 068 BPM Atrial Rate : 277 BPM P-R Int : 000 ms QRS Dur : 168 ms QT Int : 476 ms P-R-T Axes : 000 -72 089 degrees QTc Int : 506 ms Ventricular-paced rhythm WITH OCCASIONAL supraventricular complexes ABNORMAL ECG WHEN COMPARED WITH ECG OF 21-MAY-2016 09:30, ELECTRONIC VENTRICULAR PACEMAKER HAS REPLACED ATRIAL FIBRILLATION Confirmed by MD DONNIE, ANNA ([id number]) on 05/09/2017 5:45:00 PM Referred By: Confirmed By:ANNA FIELDS MD
[2017-05-09] MEDS ORDERED: oxyCODONE HCL 5 MG TABLET ONE (18:38)
[2017-05-09] MEDS ORDERED: methylPREDNISolone NA SUCC 40 MG/1 ML VIAL ONE (18:39)
[2017-05-09] MEDS: oxyCODONE HCL 5 MG TABLET PO PRN (18:45)
[2017-05-09] MEDS: methylPREDNISolone NA SUCC 40 MG/1 ML VIAL IVPUSH SCH (18:45)
[2017-05-09] MEDS ORDERED: ALBUTEROL SO4 0.083% IH SOL 2.5 MG/3 ML VIAL.NEB. NEB PRN (18:46)
[2017-05-09] MEDS: hydrALAZINE HCL 25 MG TABLET (FP) PO SCH (22:20)
[2017-05-09] MEDS: ATORVASTATIN CA 10 MG TABLET (FP) PO SCH (22:20)
[2017-05-09] MEDS: HEPARIN NA (PORCINE) 5,000 UNITS/ML 1ML VIAL SQ SCH (22:20)
[2017-05-10] MEDS: methylPREDNISolone NA SUCC 40 MG/1 ML VIAL IVPUSH SCH ×3 (03:08→17:54)
[2017-05-10 06:53] LABS: HEMATOCRIT 37.4 % (32.4-45.2); HEMOGLOBIN 12.1 GM/dL (10.7-15.3); MCH 29.6 pg (25.7-33.7); MCHC 32.3 g/dl (32.0-36.0); MEAN CELL VOLUME 91.8 fl (80-96); PLATELET COUNT 227 K/MM3 (134-434); RBC 4.07 M/mm3 (3.60-5.2); RDW 16.1 % (11.6-15.6); WHITE BLOOD COUNT 13.7 K/mm3 (4.0-10.0)
[2017-05-10 07:36] LABS: CHLORIDE 109 mmol/L (98-107); POTASSIUM 4.2 mmol/L (3.5-5.1); SODIUM 141 mmol/L (136-145)
[2017-05-10 07:44] LABS: ALBUMIN 3.5 g/dl (3.4-5.0); ALK PHOS 87 U/L (45-117); ANION GAP 6 (8-16); BILIRUBIN,TOTAL 0.4 mg/dL (0.2-1.0); BLOOD UREA NITROGEN 17 mg/dL (7-18); CALCIUM 8.8 mg/dL (8.5-10.1); CO2 26 mmol/L (21-32); GLUCOSE,RANDOM 147 mg/dL (74-106); MAGNESIUM 2.1 mg/dL (1.8-2.4); PHOSPHOROUS 3.3 mg/dL (2.5-4.9); SGOT/AST 27 U/L (15-37); SGPT/ALT 36 U/L (12-78); TOT PROT 6.7 g/dl (6.4-8.2)
[2017-05-10] MEDS ORDERED: ACETAMINOPHEN 325 MG TABLET (FP) ONE (08:15)
[2017-05-10] MEDS ORDERED: cefTRIAXone SODIUM 1 GM VIAL ONE (08:52)
[2017-05-10] MEDS ORDERED: DEXTROSE 5%-WATER - 50 ML IVPB ONE (08:52)
--- NOTE | 2017-05-10 08:58 | PN ---
Progress Note, Physician Chief Complaint: SOB - Current Medication List Current Medications: Active Medications Albuterol Sulfate (Ventolin 0.083% Nebulizer Soln -) 1 amp NEB Q4H PRN PRN Reason: SHORT OF BREATH/WHEEZING Ascorbic Acid (Vitamin C -) 500 mg PO DAILY [facility] Atorvastatin Calcium (Lipitor -) 10 mg PO HS [facility] Last Admin: 05/09/17 22:20 Dose: 10 mg Cholecalciferol (Vitamin D3 -) 400 unit PO DAILY [facility] Cyanocobalamin (Vitamin B12 -) 1,000 mcg PO DAILY [facility] Digoxin (Lanoxin -) 0.125 mg PO DAILY [facility] Diltiazem HCl (Cardizem Cd -) 180 mg PO DAILY [facility] Heparin Sodium (Porcine) (Heparin -) 5,000 unit SQ BID [facility] Last Admin: 05/09/17 22:20 Dose: 5,000 unit Hydralazine HCl (Apresoline -) 25 mg PO BID [facility] Last Admin: 05/09/17 22:20 Dose: 25 mg Azithromycin 250 mg/ Dextrose 250 mls @ 250 mls/hr IVPB DAILY [facility] Ceftriaxone Sodium 1 gm/ (Dextrose) 50 mls @ 100 mls/hr IVPB DAILY [facility] Methylprednisolone Sodium Succinate (Solu-Medrol -) 40 mg IVPUSH Q8H-IV [facility] Last Admin: 05/10/17 03:08 Dose: 40 mg Metoprolol Tartrate (Lopressor -) 25 mg PO DAILY [facility] Multivitamins/Minerals/Vitamin C (Tab-A-Vit -) 1 tab PO DAILY [facility] Non-Formulary Medication (Fluticasone/Vilanterol [Breo Ellipta 100-25 Mcg Inh]) 1 each IH DAILY [facility] Oxycodone HCl (Roxicodone -) 5 mg PO BID PRN PRN Reason: PAIN LEVEL 4 - 6 Last Admin: 05/09/17 18:45 Dose: 5 mg Pyridoxine HCl (Vitamin B6 -) 50 mg PO DAILY [facility] Sertraline HCl (Zoloft -) 25 mg PO DAILY [facility] Valsartan (Diovan -) 320 mg PO DAILY [facility] - Objective Vital Signs: Vital Signs Temperature 98.0 F 05/10/17 08:01 Pulse Rate 113 H 05/10/17 08:01 Respiratory Rate 26 H 05/10/17 08:01 Blood Pressure 172/69 05/10/17 08:01 O2 Sat by Pulse Oximetry (%) 95 05/10/17 08:01 Constitutional: Yes: Anxious, Thin Eyes: Yes: WNL, Conjunctiva Clear, EOM Intact HENT: Yes: WNL, Atraumatic, Normocephalic Neck: Yes: WNL, Supple, Trachea Midline Cardiovascular: Yes: WNL, Pulse Irregular, Murmur, S1, S2 Respiratory: Yes: WNL, On BiPap, On Nasal O2, Wheezes Gastrointestinal: Yes: WNL, Normal Bowel Sounds, Soft ...Rectal Exam: Yes: Deferred Musculoskeletal: Yes: Back Pain Extremities: Yes: WNL Edema: LLE: Trace, RLE: Trace Integumentary: Yes: WNL Neurological: Yes: WNL, Alert, Oriented Labs: CBC, BMP 05/10/17 06:30 05/10/17 06:30 INR, PTT INR 2.27 (0.82-1.09) H 05/09/17 08:35 - ....Imaging Chest X-ray: Image Reviewed EKG: Image Reviewed (atrial fibrillation) Problem List - Problems (1) Respiratory failure, [id number] Assessment/Plan: methyprednisone 40mg IVPB q8h, titrate to q12 hrs then once a day then D/c - Albuterol nebs prn - Continue Breo - Bipap as needed, keep spO2 >90% - F/u pulmonary consult Code(s): J96.20 - ACUTE AND CHR RESP FAILURE, UNSP W HYPOXIA OR HYPERCAPNIA Qualifiers: Respiratory failure complication: hypercapnia Qualified Code(s): J96.22 - Acute and chronic respiratory failure with hypercapnia (2) Acute exacerbation of chronic obstructive pulmonary disease (COPD) Assessment/Plan: - methylprednisone 40mg IVPB q8h - Albuterol nebs prn - Continue Breo - Bipap as needed, keep spO2 >90% - F/u pulmonary consult Code(s): J44.1 - CHRONIC OBSTRUCTIVE PULMONARY DISEASE W (ACUTE) EXACERBATION (3) Atrial fibrillation Assessment/Plan: rate control with digoxin c/w diltiazem measure the digoxin level CHADVASC 6 - patient is high risk for thromboembolic event - no anticoagulation due to the risk of bleeding Code(s): I48.91 - UNSPECIFIED ATRIAL FIBRILLATION (4) CHF (congestive heart failure) Assessment/Plan: stable no acute exacerbation c/w medical managment f/u cardiology Code(s): I50.9 - HEART FAILURE, UNSPECIFIED Qualifiers: Qualified Code(s): I50.9 - Heart failure, unspecified (5) Hyperlipidemia Assessment/Plan: c/w home medication Code(s): E78.5 - HYPERLIPIDEMIA, UNSPECIFIED (6) Hypertension Assessment/Plan: c/w home medication Code(s): I10 - ESSENTIAL (PRIMARY) HYPERTENSION (7) Leukocytosis Assessment/Plan: 2/ to acute exacerbation of COPD Code(s): D72.829 - ELEVATED WHITE BLOOD CELL COUNT, UNSPECIFIED
[2017-05-10] MEDS: CEFTRIAXONE 1 GM in DEXTROSE 5%-WATER - 50 ML IVPB SCH (09:28)
[2017-05-10] MEDS: DIGOXIN 0.125 MG TABLET (FP) PO SCH (09:28)
[2017-05-10] MEDS: SERTRALINE HCL 25 MG TABLET (FP) PO SCH (09:28)
[2017-05-10] MEDS: CYANOCOBALAMIN 1,000 MCG TABLET (FP) PO SCH (09:28)
[2017-05-10] MEDS: MULTIVITAMINS (DAILY MVI) TABLET (FP) PO SCH (09:29)
[2017-05-10] MEDS: oxyCODONE HCL 5 MG TABLET PO PRN ×2 (09:29→22:30)
[2017-05-10] MEDS: hydrALAZINE HCL 25 MG TABLET (FP) PO SCH ×2 (09:29→22:30)
[2017-05-10] MEDS: ASCORBIC ACID 500 MG TABLET (FP) PO SCH (09:29)
[2017-05-10] MEDS: HEPARIN NA (PORCINE) 5,000 UNITS/ML 1ML VIAL SQ SCH ×2 (09:30→22:29)
[2017-05-10] MEDS: VALSARTAN 160 MG TABLET (UD) PO SCH (09:30)
[2017-05-10] MEDS: AZITHROMYCIN IVPB 250 MG in DEXTROSE 5%-WATER - 250 ML IVPB SCH (09:32)
[2017-05-10] MEDS ORDERED: PT OWN MED DRAWER 7, Y5N ONE (09:36)
[2017-05-10] MEDS: CHOLECALCIFEROL (VITAMIN D3) 400 UNIT TABLET (FP) PO SCH (09:36)
[2017-05-10] MEDS: PYRIDOXINE HCL (B-6) 50 MG TABLET (FP) PO SCH (09:55)
[2017-05-10] MEDS ORDERED: METOPROLOL TARTRATE 25 MG TABLET (FP) PO SCH (10:00)
--- NOTE | 2017-05-10 13:11 | CON.PULM ---
Consult Consult Specialty:: PULMONARY Referred by:: Dr. Rivera Reason for Consultation:: shortness of breath - History of Present Illness Chief Complaint: shortness of breath History of Present Illness: 81yo female with h/o COPD, atrial fibrillation, CAD, PAD s/p RLE bypass, anxiety who was admitted with worsening shortness of breath. She denies any chest pain or palpitations. No fevers, chills or sweats. No sick contacts. Reports a cough productive of white sputum and wheezing which was not relieved with her albuterol nebs at home. Stopped taking her Symbicort due to insurance issues. Former smoker. Used to have home O2 but gave it back in 2016. - History Source History Provided By: Patient, Medical Record Limitations to Obtaining History: Clinical Condition - Past Medical History Cardio/Vascular: Yes: AFIB, CAD, HTN, Hyperlipdemia Pulmonary: Yes: COPD Infectious Disease: Yes: C-Diff Musculoskeletal: Yes: Osteoarthritis - Past Surgical History Past Surgical History: Yes: Appendectomy, Hysterectomy, Permanent Pacemaker - Alcohol/Substance Use Hx Alcohol Use: No - Smoking History Smoking history: Former smoker Have you smoked in the past 12 months: No Aproximately how many cigarettes per day: 0 If you are a former smoker, when did you quit?: 2002 - Social History Usual Living Arrangement: Alone ADL: Independent History of Recent Travel: No Home Medications - Allergies Allergies/Adverse Reactions: Allergies Allergy/AdvReac Type Severity Reaction Status Date / Time melatonin Allergy Mild Nausea Verified 05/09/17 08:33 vancomycin AdvReac Mild Nausea Verified 05/09/17 08:33 zolpidem AdvReac Unknown Verified 05/09/17 08:33 zolpidem tartrate AdvReac Unknown Verified 05/09/17 08:33 [From Ambien] - Home Medications Home Medications: Ambulatory Orders Ascorbic Acid [Vitamin C -] 500 mg PO DAILY 05/09/17 Atorvastatin Ca [Lipitor] 10 mg PO HS 05/09/17 Cholecalciferol (Vitamin D3) [Vitamin D3] 400 unit PO DAILY 05/09/17 Cyanocobalamin [Vitamin B12 -] 1,000 mcg PO DAILY 05/09/17 Digoxin [Lanoxin -] 0.125 mg PO DAILY 05/09/17 Diltiazem HCl [Tiazac] 180 mg PO DAILY 05/09/17 Fluticasone/Vilanterol [Breo Ellipta 100-25 Mcg INH] 1 each IH DAILY 05/09/17 Hydralazine HCl 25 mg PO BID 05/09/17 Magnesium Oxide [Magnesium] 400 mg PO BID 05/09/17 Metoprolol Tartrate 25 mg PO DAILY 05/09/17 Multivitamin/Iron/Folic Acid [Centrum Adults Tablet] 1 each PO DAILY 05/09/17 Pyridoxine HCl (B-6) [Vitamin B6] 50 mg PO DAILY 05/09/17 Sertraline HCl 25 mg PO DAILY 05/09/17 Valsartan 320 mg PO DAILY 05/09/17 oxyCODONE HCL [Roxicodone -] 5 mg PO BID PRN 05/09/17 Review of Systems - Review of Systems Constitutional: reports: Malaise, Weakness. denies: Chills, Fever Eyes: denies: Recent Change in Vision HENT: denies: Mouth Swelling, Nasal Congestion Neck: denies: Stiffness, Tenderness Cardiovascular: reports: Shortness of Breath. denies: Chest Pain, Edema, Palpitations Respiratory: reports: Cough, SOB, SOB on Exertion, Wheezing. denies: Hemoptysis Gastrointestinal: denies: Abdominal Pain, Nausea, Vomiting Genitourinary: denies: Dysuria, Hematuria Neurological: denies: Dizziness, Headache Physical Exam Vital Sings: Vital Signs Temperature 98.0 F 05/10/17 08:01 Pulse Rate 92 H 05/10/17 09:28 Respiratory Rate 26 H 05/10/17 08:01 Blood Pressure 172/69 05/10/17 08:01 O2 Sat by Pulse Oximetry (%) 95 05/10/17 08:01 Constitutional: Yes: Mild Distress (tachypneic with speaking) Eyes: Yes: Conjunctiva Clear, EOM Intact HENT: Yes: Atraumatic, Normocephalic Neck: Yes: Supple, Trachea Midline Cardiovascular: Yes: Pulse Irregular Respiratory: Yes: Poor Air Entry. No: Wheezes ...Clubbing: No Gastrointestinal: Yes: Normal Bowel Sounds, Soft. No: Tenderness Edema: No Neurological: Yes: Alert, Oriented Labs: CBC, BMP 05/10/17 06:30 05/10/17 06:30 ABG Results ABG pH 7.42 (7.35-7.45) 05/09/17 09:14 ABG pCO2 at Pt Temp 39.5 mmHg (35-45) 05/09/17 09:14 ABG pO2 at Pt Temp 77.8 mmHg (68-100) 05/09/17 09:14 ABG HCO3 25.2 meq/L (22-26) 05/09/17 09:14 ABG O2 Sat (Measured) 96.1 % (90-98.9) 05/09/17 09:14 ABG O2 Content 15.5 % vol (15-22) 05/09/17 09:14 ABG Base Excess 1.3 meq/l (-2-2) 05/09/17 09:14 Imaging - Results Chest X-ray: Report Reviewed, Image Reviewed (RLL infiltrate) Problem List - Problems (1) Acute exacerbation of chronic obstructive pulmonary disease (COPD) Code(s): J44.1 - CHRONIC OBSTRUCTIVE PULMONARY DISEASE W (ACUTE) EXACERBATION (2) Pneumonia Code(s): J18.9 - PNEUMONIA, UNSPECIFIED ORGANISM (3) Atrial fibrillation Code(s): I48.91 - UNSPECIFIED ATRIAL FIBRILLATION (4) PAD (peripheral artery disease) Code(s): I73.9 - PERIPHERAL VASCULAR DISEASE, UNSPECIFIED Assessment/Plan Acute COPD Exacerbation Pneumonia Atrial Fibrillation CAD PAD - IV medrol - inhaled bronchodilators - antibiotics for community coverage - f/u cultures - O2 to keep SpO2 >90% - BiPAP as needed to assist in work of breathing - rate control, if tachycardic with duonebs, can change albuterol to 1/2 dose - continue anticoagulation Thank you for this consult Srinivas Stallings MD
--- NOTE | 2017-05-10 13:46 | CON.CARD ---
Cardiology Consult (text) - Consultation Consultation Note: cc: sob hpi: 80 f hx afib on coumadin, htn, hld, tachy/maricruz syndrome s/p ppm, copd, pad s/p rle bypass, possible cad (equivocal MIBI), chronic sob/briones/palps likely related to anxiety, esophageal ca s/p laser treatment, here with sob. SOB, worsening over the past 2 weeks. acutely worse over past few days. no improvement with inhalers. + coughing. Has been coughing up yellow sputum States she has been off lasix for the past couple of months b/c of dry mouth. slow decrease in calorie intake b/c of chewing limitations from dentures. s/p bipap, nebs --> improvement in sx's. No palps, dizzy, loc, pnd, orthopnea, le edema. Sees Dr Torres for Cardio. pmh/psh: per hpi, ppm ros: per hpi; no fever,chills, sweats, nvd, [place], vision changes, nasal congestion, rashes social: no tob fam: nc meds: Ambulatory Orders Ascorbic Acid [Vitamin C -] 500 mg PO DAILY 05/09/17 Atorvastatin Ca [Lipitor] 10 mg PO HS 05/09/17 Cholecalciferol (Vitamin D3) [Vitamin D3] 400 unit PO DAILY 05/09/17 Cyanocobalamin [Vitamin B12 -] 1,000 mcg PO DAILY 05/09/17 Digoxin [Lanoxin -] 0.125 mg PO DAILY 05/09/17 Diltiazem HCl [Tiazac] 180 mg PO DAILY 05/09/17 Fluticasone/Vilanterol [Breo Ellipta 100-25 Mcg INH] 1 each IH DAILY 05/09/17 Hydralazine HCl 25 mg PO BID 05/09/17 Magnesium Oxide [Magnesium] 400 mg PO BID 05/09/17 Metoprolol Tartrate 25 mg PO DAILY 05/09/17 Multivitamin/Iron/Folic Acid [Centrum Adults Tablet] 1 each PO DAILY 05/09/17 Pyridoxine HCl (B-6) [Vitamin B6] 50 mg PO DAILY 05/09/17 Sertraline HCl 25 mg PO DAILY 05/09/17 Valsartan 320 mg PO DAILY 05/09/17 oxyCODONE HCL [Roxicodone -] 5 mg PO BID PRN 05/09/17 Current Medications Albuterol Sulfate (Ventolin 0.083% Nebulizer Soln -) 1 amp NEB Q4H PRN PRN Reason: SHORT OF BREATH/WHEEZING Albuterol/Ipratropium (Duoneb -) 1 amp NEB RTID [facility] Ascorbic Acid (Vitamin C -) 500 mg PO DAILY [facility] Last Admin: 05/10/17 09:29 Dose: 500 mg Atorvastatin Calcium (Lipitor -) 10 mg PO HS [facility] Last Admin: 05/09/17 22:20 Dose: 10 mg Cholecalciferol (Vitamin D3 -) 400 unit PO DAILY [facility] Last Admin: 05/10/17 09:36 Dose: 400 unit Cyanocobalamin (Vitamin B12 -) 1,000 mcg PO DAILY [facility] Last Admin: 05/10/17 09:28 Dose: 1,000 mcg Digoxin (Lanoxin -) 0.125 mg PO DAILY [facility] Last Admin: 05/10/17 09:28 Dose: 0.125 mg Diltiazem HCl (Cardizem Cd -) 180 mg PO DAILY [facility] Last Admin: 05/10/17 09:29 Dose: 180 mg Heparin Sodium (Porcine) (Heparin -) 5,000 unit SQ BID [facility] Last Admin: 05/10/17 09:30 Dose: 5,000 unit Hydralazine HCl (Apresoline -) 25 mg PO BID [facility] Last Admin: 05/10/17 09:29 Dose: 25 mg Azithromycin 250 mg/ Dextrose 250 mls @ 250 mls/hr IVPB DAILY [facility] Last Admin: 05/10/17 09:32 Dose: 250 mls/hr Ceftriaxone Sodium 1 gm/ (Dextrose) 50 mls @ 100 mls/hr IVPB DAILY [facility] Last Admin: 05/10/17 09:28 Dose: 100 mls/hr Methylprednisolone Sodium Succinate (Solu-Medrol -) 40 mg IVPUSH Q8H-IV [facility] Last Admin: 05/10/17 09:28 Dose: 40 mg Metoprolol Tartrate (Lopressor -) 25 mg PO DAILY [facility] Last Admin: 05/10/17 09:30 Dose: 25 mg Multivitamins/Minerals/Vitamin C (Tab-A-Vit -) 1 tab PO DAILY [facility] Last Admin: 05/10/17 09:29 Dose: 1 tab Non-Formulary Medication (Fluticasone/Vilanterol [Breo Ellipta 100-25 Mcg Inh]) 1 each IH DAILY [facility] Oxycodone HCl (Roxicodone -) 5 mg PO BID PRN PRN Reason: PAIN LEVEL 4 - 6 Last Admin: 05/10/17 09:29 Dose: 5 mg Pyridoxine HCl (Vitamin B6 -) 50 mg PO DAILY [facility] Sertraline HCl (Zoloft -) 25 mg PO DAILY [facility] Last Admin: 05/10/17 09:28 Dose: 25 mg Valsartan (Diovan -) 320 mg PO DAILY [facility] Last Admin: 05/10/17 09:30 Dose: 320 mg pe: Vital Signs - 24 hr 05/09/17 05/09/17 05/09/17 17:00 18:35 19:31 Temperature 98.6 F Pulse Rate Pulse Rate [ 75 Apical] Respiratory 20 Rate Blood Pressure Blood Pressure 157/95 [Left Arm] O2 Sat by Pulse 94 L 98 100 Oximetry (%) 05/09/17 05/09/17 05/09/17 19:50 20:05 20:15 Temperature Pulse Rate Pulse Rate [ 89 Apical] Respiratory 16 Rate Blood Pressure Blood Pressure 170/95 [Left Arm] O2 Sat by Pulse 100 99 100 Oximetry (%) 05/09/17 05/09/17 05/10/17 20:56 21:00 00:00 Temperature 97.6 F 97.7 F Pulse Rate 76 92 H Pulse Rate [ Apical] Respiratory 24 22 Rate Blood Pressure 160/80 180/94 Blood Pressure [Left Arm] O2 Sat by Pulse 96 97 Oximetry (%) 05/10/17 05/10/17 05/10/17 04:00 08:01 09:28 Temperature 98.0 F Pulse Rate 79 113 H 92 H Pulse Rate [ Apical] Respiratory 24 26 H Rate Blood Pressure 175/66 172/69 Blood Pressure [Left Arm] O2 Sat by Pulse 95 Oximetry (%) Intake & Output 05/08/17 05/09/17 05/10/17 05/11/17 07:59 07:59 07:59 07:59 Intake Total 270 Balance 270 Weight 127 lb nad, no jvd rrr s1s2 no mrg mild exp wheezing, dec air movement, nl eff aaox3 no le e/c/c no diaphoresis/jaundice pos dp/pt abd nt nd pos bs CBC, BMP 05/10/17 06:30 04/01/18 06:30 Laboratory Tests 04/16/15 05/09/17 05/09/17 13:40 08:35 08:35 INR 2.27 H Magnesium Troponin I 0.05 B-Natriuretic Peptide 5991.91 H 3943.85 H Albumin Digoxin 0.9907 05/10/17 06:30 INR Magnesium 2.1 Troponin I B-Natriuretic Peptide Albumin 3.5 Digoxin ecg: demand v-pacing with either pac or nome beat. lateral twi (present on priors) tele: demand v-pacing cxr: elevated right hemidiaphragm. minimal bibasilar pleural fluid. some congestive changes. patchy right infiltrate. questionable early left base infiltrate. echo 05/2016: tds; nl lv, nl rv size, mild marcus, mild mr, mild-mod tr, rvsp 40-50 , mod ao root dil pfts 06/2016: severe obstruction. moderate restriction. severe diffusion defect. Assessment/Plan 80 f hx afib on coumadin, htn, hld, tachy/maricruz syndrome s/p ppm, copd, pad s/p rle bypass, possible cad (equivocal MIBI), chronic sob/briones/palps likely related to anxiety, esophageal ca s/p laser treatment, here with sob. sob: -now off bipap. current presentation seems more related to copd than chf. bnp lower than priors. -cont tx copd per pmd/pulm, Infectious eval/mgm't per pmd/pulm. - see below regarding diuresis chronic diast CHF: -no signs of volume overload off diuretics. Previously on daily po lasix. daily weights, i/o's. con't to monitor for the need to add back lasix. afib: -Rate controlled on dilt plus low dose metopr (need to change daily tartrate which is a bid medication to succinate) and dig (dig level ok here) -cont AC with warfarin per inr htn: - suboptimal control prior to resuming home regimen. Monitor today now that home regimen has resumed. tachy/maricruz syndrome s/p ppm: - Stable, cont routine outpt checks pad s/p rle bypass: -Stable, no claudication. possible cad (equivocal MIBI): -No angina, continue medical management (statin, BB, ARB...no ASA (on AC))
[2017-05-10] MEDS: ALBUTEROL SO4 2.5/IPRATROPIUM 0.5 INH SOL 3 ML VIAL.NEB. NEB SCH ×2 (15:50→20:00)
[2017-05-10] MEDS: ATORVASTATIN CA 10 MG TABLET (FP) PO SCH (22:29)
[2017-05-11] MEDS: methylPREDNISolone NA SUCC 40 MG/1 ML VIAL IVPUSH SCH ×3 (02:00→21:25)
[2017-05-11 06:08] LABS: HEMATOCRIT 34.3 % (32.4-45.2); HEMOGLOBIN 11.3 GM/dL (10.7-15.3); LYMPH % 1.7 % (8-40); MCH 30.1 pg (25.7-33.7); MCHC 32.8 g/dl (32.0-36.0); MEAN CELL VOLUME 91.7 fl (80-96); MEAN PLT VOLUME 10.1 fl (7.5-11.1); MONO % 1.5 % (3.8-10.2); NEUT % 96.8 % (42.8-82.8); PLATELET COUNT 243 K/MM3 (134-434); RBC 3.74 M/mm3 (3.60-5.2); RDW 16.7 % (11.6-15.6); WHITE BLOOD COUNT 18.1 K/mm3 (4.0-10.0)
[2017-05-11 06:37] LABS: CHLORIDE 108 mmol/L (98-107); POTASSIUM 4.5 mmol/L (3.5-5.1); SODIUM 142 mmol/L (136-145)
[2017-05-11 07:02] LABS: ANION GAP 8 (8-16); BLOOD UREA NITROGEN 30 mg/dL (7-18); CALCIUM 8.8 mg/dL (8.5-10.1); CO2 26 mmol/L (21-32); CREATININE 1.1 mg/dL (0.55-1.02); GLUCOSE,RANDOM 142 mg/dL (74-106); MAGNESIUM 2.2 mg/dL (1.8-2.4)
[2017-05-11] MEDS ORDERED: cefTRIAXone SODIUM 1 GM VIAL ONE (08:16)
[2017-05-11] MEDS ORDERED: DEXTROSE 5%-WATER - 50 ML IVPB ONE (08:16)
[2017-05-11] MEDS: ALBUTEROL SO4 2.5/IPRATROPIUM 0.5 INH SOL 3 ML VIAL.NEB. NEB SCH ×3 (08:34→20:52)
--- NOTE | 2017-05-11 09:39 | PN ---
Progress Note (short form) - Note Progress Note: s: sob improving. no cp palps dizzy o: Vital Signs Period Temp Pulse Resp BP Sys/Wahl Pulse Ox Last 24 Hr 97.8 F-98.6 F 66-84 18-24 121-147/50-95 93-96 nad, no jvd rrr s1s2 no mrg mild exp wheezing, dec air movement, nl eff aaox3 no le e/c/c no diaphoresis/jaundice abd nt nd pos bs Current Medications Generic Name Dose Route Start Last Admin Trade Name Freq PRN Reason Stop Dose Admin Albuterol Sulfate 1 amp 05/09/17 18:46 05/10/17 12:55 Ventolin 0.083% Nebulizer Soln - NEB 1 amp Q4H PRN Administration SHORT OF BREATH/WHEEZING Albuterol/Ipratropium 1 amp 05/10/17 14:00 05/10/17 20:00 Duoneb - NEB 1 amp RTID [facility] Administration Ascorbic Acid 500 mg 05/10/17 10:00 05/10/17 09:29 Vitamin C - PO 500 mg DAILY [facility] Administration Atorvastatin Calcium 10 mg 05/09/17 22:00 05/10/17 22:29 Lipitor - PO 10 mg HS [facility] Administration Cholecalciferol 400 unit 05/10/17 10:00 05/10/17 09:36 Vitamin D3 - PO 400 unit DAILY [facility] Administration Cyanocobalamin 1,000 mcg 05/10/17 10:00 05/10/17 09:28 Vitamin B12 - PO 1,000 mcg DAILY [facility] Administration Digoxin 0.125 mg 05/10/17 10:00 05/10/17 09:28 Lanoxin - PO 0.125 mg DAILY [facility] Administration Diltiazem HCl 180 mg 05/10/17 10:00 05/10/17 09:29 Cardizem Cd - PO 180 mg DAILY [facility] Administration Heparin Sodium (Porcine) 5,000 unit 05/09/17 22:00 05/10/17 22:29 Heparin - SQ 5,000 unit BID [facility] Administration Hydralazine HCl 25 mg 05/09/17 22:00 05/10/17 22:30 Apresoline - PO 25 mg BID [facility] Administration Azithromycin 250 mg/ Dextrose 250 mls @ 250 mls/hr 05/10/17 10:00 05/10/17 09 :32 IVPB 250 mls/hr DAILY [facility] Administration Ceftriaxone Sodium 1 gm/ 50 mls @ 100 mls/hr 05/10/17 10:00 05/10/17 09:28 Dextrose IVPB 100 mls/hr DAILY [facility] Administration Methylprednisolone Sodium Succinate 40 mg 05/09/17 18:30 05/11/17 02:00 Solu-Medrol - IVPUSH 40 mg Q8H-IV [facility] Administration Metoprolol Succinate 25 mg 05/11/17 10:00 Toprol Xl - PO DAILY [facility] Multivitamins/Minerals/Vitamin C 1 tab 05/10/17 10:00 05/10/17 09:29 Tab-A-Vit - PO 1 tab DAILY [facility] Administration Non-Formulary Medication 1 each 05/10/17 10:00 Fluticasone/Vilanterol [Breo Ellipta 100-25 Mcg Inh] IH DAILY [facility] Oxycodone HCl 5 mg 05/09/17 18:20 05/10/17 22:30 Roxicodone - PO 5 mg BID PRN Administration PAIN LEVEL 4 - 6 Pyridoxine HCl 50 mg 05/10/17 10:00 05/10/17 09:55 Vitamin B6 - PO Not Given DAILY [facility] Sertraline HCl 25 mg 05/10/17 10:00 05/10/17 09:28 Zoloft - PO 25 mg DAILY [facility] Administration Valsartan 320 mg 05/10/17 10:00 05/10/17 09:30 Diovan - PO 320 mg DAILY [facility] Administration Laboratory Last Values WBC 18.1 K/mm3 (4.0-10.0) H D 05/11/17 05:51 RBC 3.74 M/mm3 (3.60-5.2) 05/11/17 05:51 Hgb 11.3 GM/dL (10.7-15.3) 05/11/17 05:51 Hct 34.3 % (32.4-45.2) 05/11/17 05:51 MCV 91.7 fl (80-96) 05/11/17 05:51 MCH 30.1 pg (25.7-33.7) 05/11/17 05:51 MCHC 32.8 g/dl (32.0-36.0) 05/11/17 05:51 RDW 16.7 % (11.6-15.6) H 05/11/17 05:51 Plt Count 243 K/MM3 (134-434) 05/11/17 05:51 MPV 10.1 fl (7.5-11.1) 05/11/17 05:51 Neutrophils % 96.8 % (42.8-82.8) H 05/11/17 05:51 Lymphocytes % 1.7 % (8-40) L D 05/11/17 05:51 Monocytes % 1.5 % (3.8-10.2) L 05/11/17 05:51 Eosinophils % 0.0 % (0-4.5) D 05/11/17 05:51 Basophils % 0.0 % (0-2.0) 05/11/17 05:51 PT with INR 25.70 SEC (9.98-11.88) H 05/09/17 08:35 INR 2.27 (0.82-1.09) H 05/09/17 08:35 Anticoagulation Therapy No Result Required. 05/09/17 09:14 Puncture Site Right radial 05/09/17 09:14 ABG pH 7.42 (7.35-7.45) 05/09/17 09:14 ABG pCO2 at Pt Temp 39.5 mmHg (35-45) 05/09/17 09:14 ABG pO2 at Pt Temp 77.8 mmHg (68-100) 05/09/17 09:14 ABG HCO3 25.2 meq/L (22-26) 05/09/17 09:14 ABG O2 Sat (Measured) 96.1 % (90-98.9) 05/09/17 09:14 ABG O2 Content 15.5 % vol (15-22) 05/09/17 09:14 ABG Base Excess 1.3 meq/l (-2-2) 05/09/17 09:14 Gil Test Positive 05/09/17 09:14 O2 Delivery Device No Result Required. 05/09/17 09:14 Oxygen Flow Rate Yes 05/09/17 09:14 Vent Mode No Result Required. 05/09/17 09:14 Vent Rate No Result Required. 05/09/17 09:14 Mechanical Rate No Result Required. 05/09/17 09:14 Pressure Support Vent No Result Required. 05/09/17 09:14 Sodium 142 mmol/L (136-145) 05/11/17 05:51 Potassium 4.5 mmol/L (3.5-5.1) 05/11/17 05:51 Chloride 108 mmol/L (98-107) H 05/11/17 05:51 Carbon Dioxide 26 mmol/L (21-32) 05/11/17 05:51 Anion Gap 8 (8-16) 05/11/17 05:51 BUN 30 mg/dL (7-18) H 05/11/17 05:51 Creatinine 1.1 mg/dL (0.55-1.02) H 05/11/17 05:51 Creat Clearance w eGFR 53.21 (>60) 05/10/17 06:30 Random Glucose 142 mg/dL (74-106) H 05/11/17 05:51 Calcium 8.8 mg/dL (8.5-10.1) 05/11/17 05:51 Phosphorus 3.3 mg/dL (2.5-4.9) 05/10/17 06:30 Magnesium 2.2 mg/dL (1.8-2.4) 05/11/17 05:51 Total Bilirubin 0.4 mg/dL (0.2-1.0) 05/10/17 06:30 AST 27 U/L (15-37) 05/10/17 06:30 ALT 36 U/L (12-78) 05/10/17 06:30 Alkaline Phosphatase 87 U/L (45-117) 05/10/17 06:30 Creatine Kinase 88 IU/L (26-192) 05/09/17 08:35 Troponin I 0.05 ng/ml (0.00-0.05) 05/09/17 08:35 B-Natriuretic Peptide 3943.85 pg/ml (5-450) H 05/09/17 08:35 Total Protein 6.7 g/dl (6.4-8.2) 05/10/17 06:30 Albumin 3.5 g/dl (3.4-5.0) 05/10/17 06:30 Digoxin 1.0803 ng/ml (0.8-2.0) 05/11/17 05:51 ecg: demand v-pacing with either pac or [place] beat. lateral twi (present on priors) tele: demand v-pacing cxr: elevated right hemidiaphragm. minimal bibasilar pleural fluid. some congestive changes. patchy right infiltrate. questionable early left base infiltrate. echo 05/2016: tds; nl lv, nl rv size, mild marcus, mild mr, mild-mod tr, rvsp 40-50 , mod ao root dil pfts 06/2016: severe obstruction. moderate restriction. severe diffusion defect. Assessment/Plan 80 f hx afib on coumadin, htn, hld, tachy/maricruz syndrome s/p ppm, copd, pad s/p rle bypass, possible cad (equivocal MIBI), chronic sob/briones/palps likely related to anxiety, esophageal ca s/p laser treatment, here with sob. sob: -now off bipap. current presentation seems more related to copd than chf. bnp lower than priors. -cont tx copd per pmd/pulm, Infectious eval/mgm't per pmd/pulm. -see below regarding diuresis chronic diast CHF: -no signs of volume overload off diuretics. Previously on daily po lasix. daily weights, i/o's. con't to monitor for the need to add back lasix. afib: -Rate controlled on dilt plus low dose metopr and dig (dig level ok here) -cont AC with warfarin per inr htn: - suboptimal control prior to resuming home regimen. Monitor today now that home regimen has resumed. tachy/maricruz syndrome s/p ppm: - Stable, cont routine outpt checks pad s/p rle bypass: -Stable, no claudication. possible cad (equivocal MIBI): -No angina, continue medical management (statin, BB, ARB...no ASA (on AC))
[2017-05-11] MEDS: PYRIDOXINE HCL (B-6) 50 MG TABLET (FP) PO SCH (09:43)
[2017-05-11] MEDS: SERTRALINE HCL 25 MG TABLET (FP) PO SCH (09:44)
[2017-05-11] MEDS: metoPROLOL SUCCINATE 25 MG TAB.SR.24H (FP) PO SCH (09:44)
[2017-05-11] MEDS: DIGOXIN 0.125 MG TABLET (FP) PO SCH (09:44)
[2017-05-11] MEDS: MULTIVITAMINS (DAILY MVI) TABLET (FP) PO SCH (09:44)
[2017-05-11] MEDS: CYANOCOBALAMIN 1,000 MCG TABLET (FP) PO SCH (09:44)
[2017-05-11] MEDS: CEFTRIAXONE 1 GM in DEXTROSE 5%-WATER - 50 ML IVPB SCH (09:44)
[2017-05-11] MEDS: ASCORBIC ACID 500 MG TABLET (FP) PO SCH (09:45)
[2017-05-11] MEDS: hydrALAZINE HCL 25 MG TABLET (FP) PO SCH ×2 (09:45→21:24)
[2017-05-11] MEDS: HEPARIN NA (PORCINE) 5,000 UNITS/ML 1ML VIAL SQ SCH (09:45)
[2017-05-11] MEDS: VALSARTAN 160 MG TABLET (UD) PO SCH (09:45)
[2017-05-11] MEDS: AZITHROMYCIN IVPB 250 MG in DEXTROSE 5%-WATER - 250 ML IVPB SCH (09:54)
[2017-05-11] MEDS: CHOLECALCIFEROL (VITAMIN D3) 400 UNIT TABLET (FP) PO SCH (09:54)
--- NOTE | 2017-05-11 11:09 | PN ---
Progress Note, Physician History of Present Illness: PULMONARY ALERT,FEELING BETTER DYSPNEA IMPROVING,-CP,MIN COUGH - Current Medication List Current Medications: Active Medications Albuterol Sulfate (Ventolin 0.083% Nebulizer Soln -) 1 amp NEB Q4H PRN PRN Reason: SHORT OF BREATH/WHEEZING Last Admin: 05/10/17 12:55 Dose: 1 amp Albuterol/Ipratropium (Duoneb -) 1 amp NEB RTID [facility] Last Admin: 05/10/17 20:00 Dose: 1 amp Ascorbic Acid (Vitamin C -) 500 mg PO DAILY [facility] Last Admin: 05/11/17 09:45 Dose: 500 mg Atorvastatin Calcium (Lipitor -) 10 mg PO HS [facility] Last Admin: 05/10/17 22:29 Dose: 10 mg Cholecalciferol (Vitamin D3 -) 400 unit PO DAILY [facility] Last Admin: 05/11/17 09:54 Dose: 400 unit Cyanocobalamin (Vitamin B12 -) 1,000 mcg PO DAILY [facility] Last Admin: 05/11/17 09:44 Dose: 1,000 mcg Digoxin (Lanoxin -) 0.125 mg PO DAILY [facility] Last Admin: 05/11/17 09:44 Dose: 0.125 mg Diltiazem HCl (Cardizem Cd -) 180 mg PO DAILY [facility] Last Admin: 05/11/17 09:44 Dose: 180 mg Heparin Sodium (Porcine) (Heparin -) 5,000 unit SQ BID [facility] Last Admin: 05/11/17 09:45 Dose: 5,000 unit Hydralazine HCl (Apresoline -) 25 mg PO BID [facility] Last Admin: 05/11/17 09:45 Dose: 25 mg Azithromycin 250 mg/ Dextrose 250 mls @ 250 mls/hr IVPB DAILY [facility] Last Admin: 05/11/17 09:54 Dose: 250 mls/hr Ceftriaxone Sodium 1 gm/ (Dextrose) 50 mls @ 100 mls/hr IVPB DAILY [facility] Last Admin: 05/11/17 09:44 Dose: 100 mls/hr Methylprednisolone Sodium Succinate (Solu-Medrol -) 40 mg IVPUSH Q8H-IV [facility] Last Admin: 05/11/17 09:44 Dose: 40 mg Metoprolol Succinate (Toprol Xl -) 25 mg PO DAILY [facility] Last Admin: 05/11/17 09:44 Dose: 25 mg Multivitamins/Minerals/Vitamin C (Tab-A-Vit -) 1 tab PO DAILY [facility] Last Admin: 05/11/17 09:44 Dose: 1 tab Non-Formulary Medication (Fluticasone/Vilanterol [Breo Ellipta 100-25 Mcg Inh]) 1 each IH DAILY [facility] Oxycodone HCl (Roxicodone -) 5 mg PO BID PRN PRN Reason: PAIN LEVEL 4 - 6 Last Admin: 05/10/17 22:30 Dose: 5 mg Pyridoxine HCl (Vitamin B6 -) 50 mg PO DAILY [facility] Last Admin: 05/11/17 09:43 Dose: 50 mg Sertraline HCl (Zoloft -) 25 mg PO DAILY [facility] Last Admin: 05/11/17 09:44 Dose: 25 mg Valsartan (Diovan -) 320 mg PO DAILY [facility] Last Admin: 05/11/17 09:45 Dose: 320 mg - Objective Vital Signs: Vital Signs Temperature 97.8 F 05/11/17 07:37 Pulse Rate 83 05/11/17 09:44 Respiratory Rate 22 05/11/17 07:41 Blood Pressure 134/52 05/11/17 07:37 O2 Sat by Pulse Oximetry (%) 96 05/11/17 07:41 Constitutional: Yes: Well Nourished, Calm Eyes: Yes: WNL HENT: Yes: WNL Neck: Yes: WNL Cardiovascular: Yes: Pulse Irregular, S1, S2 Respiratory: Yes: Wheezes (SCATTERED WHEEZES) Gastrointestinal: Yes: Normal Bowel Sounds, Soft Extremities: Yes: WNL Edema: No Labs: CBC, BMP 05/11/17 05:51 05/11/17 05:51 INR, PTT INR 2.27 (0.82-1.09) H 05/09/17 08:35 Assessment/Plan Problem List - Problems (1) Acute exacerbation of chronic obstructive pulmonary disease (COPD) Code(s): J44.1 - CHRONIC OBSTRUCTIVE PULMONARY DISEASE W (ACUTE) EXACERBATION (2) Pneumonia Code(s): J18.9 - PNEUMONIA, UNSPECIFIED ORGANISM (3) Atrial fibrillation Code(s): I48.91 - UNSPECIFIED ATRIAL FIBRILLATION (4) PAD (peripheral artery disease) Code(s): I73.9 - PERIPHERAL VASCULAR DISEASE, UNSPECIFIED Assessment/Plan Acute COPD Exacerbation Pneumonia Atrial Fibrillation CAD PAD - IV medrol - inhaled bronchodilators - antibiotics - O2 to keep SpO2 >90% - BiPAP as needed to assist in work of breathing - anticoagulation -f/u chest x-rays DR GRANDE
[2017-05-11] MEDS ORDERED: PT OWN MED DRAWER 7, Y5N ONE (11:53)
--- NOTE | 2017-05-11 12:14 | PN ---
Progress Note, Physician Chief Complaint: Ms Moncada says she is feeling well today. Says her breathing is much improved but still requiring oxygen. No cp or n/v. - Current Medication List Current Medications: Active Medications Albuterol Sulfate (Ventolin 0.083% Nebulizer Soln -) 1 amp NEB Q4H PRN PRN Reason: SHORT OF BREATH/WHEEZING Last Admin: 05/10/17 12:55 Dose: 1 amp Albuterol/Ipratropium (Duoneb -) 1 amp NEB RTID [facility] Last Admin: 05/10/17 20:00 Dose: 1 amp Ascorbic Acid (Vitamin C -) 500 mg PO DAILY [facility] Last Admin: 05/11/17 09:45 Dose: 500 mg Atorvastatin Calcium (Lipitor -) 10 mg PO HS [facility] Last Admin: 05/10/17 22:29 Dose: 10 mg Cholecalciferol (Vitamin D3 -) 400 unit PO DAILY [facility] Last Admin: 05/11/17 09:54 Dose: 400 unit Cyanocobalamin (Vitamin B12 -) 1,000 mcg PO DAILY [facility] Last Admin: 05/11/17 09:44 Dose: 1,000 mcg Digoxin (Lanoxin -) 0.125 mg PO DAILY [facility] Last Admin: 05/11/17 09:44 Dose: 0.125 mg Diltiazem HCl (Cardizem Cd -) 180 mg PO DAILY [facility] Last Admin: 05/11/17 09:44 Dose: 180 mg Heparin Sodium (Porcine) (Heparin -) 5,000 unit SQ BID [facility] Last Admin: 05/11/17 09:45 Dose: 5,000 unit Hydralazine HCl (Apresoline -) 25 mg PO BID [facility] Last Admin: 05/11/17 09:45 Dose: 25 mg Azithromycin 250 mg/ Dextrose 250 mls @ 250 mls/hr IVPB DAILY [facility] Last Admin: 05/11/17 09:54 Dose: 250 mls/hr Ceftriaxone Sodium 1 gm/ (Dextrose) 50 mls @ 100 mls/hr IVPB DAILY [facility] Last Admin: 05/11/17 09:44 Dose: 100 mls/hr Methylprednisolone Sodium Succinate (Solu-Medrol -) 40 mg IVPUSH Q8H-IV [facility] Last Admin: 05/11/17 09:44 Dose: 40 mg Metoprolol Succinate (Toprol Xl -) 25 mg PO DAILY [facility] Last Admin: 05/11/17 09:44 Dose: 25 mg Multivitamins/Minerals/Vitamin C (Tab-A-Vit -) 1 tab PO DAILY [facility] Last Admin: 05/11/17 09:44 Dose: 1 tab Non-Formulary Medication (Fluticasone/Vilanterol [Breo Ellipta 100-25 Mcg Inh]) 1 each IH DAILY [facility] Oxycodone HCl (Roxicodone -) 5 mg PO BID PRN PRN Reason: PAIN LEVEL 4 - 6 Last Admin: 05/10/17 22:30 Dose: 5 mg Pyridoxine HCl (Vitamin B6 -) 50 mg PO DAILY [facility] Last Admin: 05/11/17 09:43 Dose: 50 mg Sertraline HCl (Zoloft -) 25 mg PO DAILY [facility] Last Admin: 05/11/17 09:44 Dose: 25 mg Valsartan (Diovan -) 320 mg PO DAILY [facility] Last Admin: 05/11/17 09:45 Dose: 320 mg Warfarin Sodium (Coumadin -) 5 mg PO DAILY@1800 [facility] - Objective Vital Signs: Vital Signs Temperature 36.6 C 05/11/17 07:37 Pulse Rate 83 05/11/17 09:44 Respiratory Rate 22 05/11/17 07:41 Blood Pressure 134/52 05/11/17 07:37 O2 Sat by Pulse Oximetry (%) 96 05/11/17 07:41 Constitutional: Yes: Well Nourished, No Distress, Calm Cardiovascular: Yes: Pulse Irregular. No: Tachycardia, Gallop, Murmur, Rub Respiratory: Yes: Regular, CTA Bilaterally, On Nasal O2. No: Rales, Rhonchi, Wheezes Gastrointestinal: Yes: Normal Bowel Sounds, Soft. No: Distention, Tenderness Extremities: Yes: WNL Edema: No Labs: CBC, BMP 05/11/17 05:51 05/11/17 05:51 INR, PTT INR 2.27 (0.82-1.09) H 05/09/17 08:35 Problem List - Problems (1) Respiratory failure, [id number] Assessment/Plan: -much improved -appreciate pulmonary assistance -continue solumedrol today but will decrease to q12h with plans for prednisone taper -continue duonebs -possible discharge tomorrow, will need home oxygen -case d/w Dr Fowler Code(s): J96.20 - ACUTE AND CHR RESP FAILURE, UNSP W HYPOXIA OR HYPERCAPNIA Qualifiers: Respiratory failure complication: hypoxia Qualified Code(s): J96.21 - Acute and chronic respiratory failure with hypoxia (2) Acute exacerbation of chronic obstructive pulmonary disease (COPD) Assessment/Plan: -as above -continue solumedrol, decrease today -continue duonebs -continue rocephin/zithromax for pneumonia Code(s): J44.1 - CHRONIC OBSTRUCTIVE PULMONARY DISEASE W (ACUTE) EXACERBATION (3) Atrial fibrillation Assessment/Plan: -rate controlled -restart coumadin -continue current regimen Code(s): I48.91 - UNSPECIFIED ATRIAL FIBRILLATION Qualifiers: Atrial fibrillation type: chronic Qualified Code(s): I48.2 - Chronic atrial fibrillation (4) Hyperlipidemia Assessment/Plan: -continue statin Code(s): E78.5 - HYPERLIPIDEMIA, UNSPECIFIED (5) Hypertension Assessment/Plan: -controlled -continue diltiazem, toprol xl, valsartan, and hydralazine Code(s): I10 - ESSENTIAL (PRIMARY) HYPERTENSION (6) Pneumonia Assessment/Plan: -continue rocephin and zithromax -no fevers or leukocytosis -safe for discharge on oral meds tomorrow Code(s): J18.9 - PNEUMONIA, UNSPECIFIED ORGANISM (7) Diastolic CHF Assessment/Plan: -on lasix as an outpatient -cardiology note reviewed -defer restarting lasix to cardiology Code(s): I50.30 - UNSPECIFIED DIASTOLIC (CONGESTIVE) HEART FAILURE Qualifiers: Heart failure chronicity: chronic Qualified Code(s): I50.32 - Chronic diastolic (congestive) heart failure
[2017-05-11 12:17] LABS: INR 1.89 (0.82-1.09); PROTHROMBIN TIME (PATIENT) 21.4 SEC (9.98-11.88)
[2017-05-11] MEDS: WARFARIN NA 5 MG TABLET (UD) PO SCH (17:18)
[2017-05-11] MEDS: ATORVASTATIN CA 10 MG TABLET (FP) PO SCH (21:24)
[2017-05-11] MEDS: oxyCODONE HCL 5 MG TABLET PO PRN (21:24)
[2017-05-12 06:42] LABS: HEMATOCRIT 33.7 % (32.4-45.2); HEMOGLOBIN 11.1 GM/dL (10.7-15.3); LYMPH % 2.1 % (8-40); MCH 30.1 pg (25.7-33.7); MEAN CELL VOLUME 91.2 fl (80-96); MEAN PLT VOLUME 9.9 fl (7.5-11.1); MONO % 2.3 % (3.8-10.2); NEUT % 95.6 % (42.8-82.8); PLATELET COUNT 225 K/MM3 (134-434); RDW 16.8 % (11.6-15.6); WHITE BLOOD COUNT 14.8 K/mm3 (4.0-10.0)
[2017-05-12 06:56] LABS: INR 2.19 (0.82-1.09); PROTHROMBIN TIME (PATIENT) 24.8 SEC (9.98-11.88)
[2017-05-12 07:29] LABS: CHLORIDE 107 mmol/L (98-107); POTASSIUM 4.3 mmol/L (3.5-5.1); SODIUM 142 mmol/L (136-145)
[2017-05-12 07:34] LABS: ANION GAP 9 (8-16); BLOOD UREA NITROGEN 33 mg/dL (7-18); CALCIUM 8.5 mg/dL (8.5-10.1); CO2 26 mmol/L (21-32); CREATININE 1.1 mg/dL (0.55-1.02); GLUCOSE,RANDOM 129 mg/dL (74-106); MAGNESIUM 2.1 mg/dL (1.8-2.4); PHOSPHOROUS 4.2 mg/dL (2.5-4.9)
[2017-05-12] MEDS: ALBUTEROL SO4 2.5/IPRATROPIUM 0.5 INH SOL 3 ML VIAL.NEB. NEB SCH ×3 (08:45→21:35)
[2017-05-12] MEDS ORDERED: cefTRIAXone SODIUM 1 GM VIAL ONE (09:03)
[2017-05-12] MEDS ORDERED: DEXTROSE 5%-WATER - 50 ML IVPB ONE (09:03)
[2017-05-12] MEDS: AZITHROMYCIN IVPB 250 MG in DEXTROSE 5%-WATER - 250 ML IVPB SCH (09:14)
[2017-05-12] MEDS: CEFTRIAXONE 1 GM in DEXTROSE 5%-WATER - 50 ML IVPB SCH (09:15)
[2017-05-12] MEDS: methylPREDNISolone NA SUCC 40 MG/1 ML VIAL IVPUSH SCH ×2 (09:18→21:07)
[2017-05-12] MEDS: ASCORBIC ACID 500 MG TABLET (FP) PO SCH (09:18)
[2017-05-12] MEDS: metoPROLOL SUCCINATE 25 MG TAB.SR.24H (FP) PO SCH (09:18)
[2017-05-12] MEDS: DIGOXIN 0.125 MG TABLET (FP) PO SCH (09:18)
[2017-05-12] MEDS: SERTRALINE HCL 25 MG TABLET (FP) PO SCH (09:18)
[2017-05-12] MEDS: CYANOCOBALAMIN 1,000 MCG TABLET (FP) PO SCH (09:18)
[2017-05-12] MEDS: VALSARTAN 160 MG TABLET (UD) PO SCH (09:18)
[2017-05-12] MEDS: MULTIVITAMINS (DAILY MVI) TABLET (FP) PO SCH (09:18)
[2017-05-12] MEDS: CHOLECALCIFEROL (VITAMIN D3) 400 UNIT TABLET (FP) PO SCH (09:19)
[2017-05-12] MEDS: PYRIDOXINE HCL (B-6) 50 MG TABLET (FP) PO SCH (09:19)
[2017-05-12] MEDS: oxyCODONE HCL 5 MG TABLET PO PRN (09:19)
[2017-05-12] MEDS: hydrALAZINE HCL 25 MG TABLET (FP) PO SCH ×2 (09:19→21:07)
--- NOTE | 2017-05-12 11:28 | PN ---
Progress Note, Physician History of Present Illness: PULMONARY ALERT,FEELING BETTER,DYSPNEA IMPROVED - Current Medication List Current Medications: Active Medications Albuterol Sulfate (Ventolin 0.083% Nebulizer Soln -) 1 amp NEB Q4H PRN PRN Reason: SHORT OF BREATH/WHEEZING Last Admin: 05/10/17 12:55 Dose: 1 amp Albuterol/Ipratropium (Duoneb -) 1 amp NEB RTID [facility] Last Admin: 05/12/17 08:45 Dose: 1 amp Ascorbic Acid (Vitamin C -) 500 mg PO DAILY [facility] Last Admin: 05/12/17 09:18 Dose: 500 mg Atorvastatin Calcium (Lipitor -) 10 mg PO HS [facility] Last Admin: 05/11/17 21:24 Dose: 10 mg Cholecalciferol (Vitamin D3 -) 400 unit PO DAILY [facility] Last Admin: 05/12/17 09:19 Dose: 400 unit Cyanocobalamin (Vitamin B12 -) 1,000 mcg PO DAILY [facility] Last Admin: 05/12/17 09:18 Dose: 1,000 mcg Digoxin (Lanoxin -) 0.125 mg PO DAILY [facility] Last Admin: 05/12/17 09:18 Dose: 0.125 mg Diltiazem HCl (Cardizem Cd -) 180 mg PO DAILY [facility] Last Admin: 05/12/17 09:18 Dose: 180 mg Hydralazine HCl (Apresoline -) 25 mg PO BID [facility] Last Admin: 05/12/17 09:19 Dose: 25 mg Azithromycin 250 mg/ Dextrose 250 mls @ 250 mls/hr IVPB DAILY [facility] Last Admin: 05/12/17 09:14 Dose: 250 mls/hr Ceftriaxone Sodium 1 gm/ (Dextrose) 50 mls @ 100 mls/hr IVPB DAILY [facility] Last Admin: 05/12/17 09:15 Dose: 100 mls/hr Methylprednisolone Sodium Succinate (Solu-Medrol -) 40 mg IVPUSH BID [facility] Last Admin: 05/12/17 09:18 Dose: 40 mg Metoprolol Succinate (Toprol Xl -) 25 mg PO DAILY [facility] Last Admin: 05/12/17 09:18 Dose: 25 mg Multivitamins/Minerals/Vitamin C (Tab-A-Vit -) 1 tab PO DAILY [facility] Last Admin: 05/12/17 09:18 Dose: 1 tab Non-Formulary Medication (Fluticasone/Vilanterol [Breo Ellipta 100-25 Mcg Inh]) 1 each IH DAILY [facility] Oxycodone HCl (Roxicodone -) 5 mg PO BID PRN PRN Reason: PAIN LEVEL 4 - 6 Last Admin: 05/12/17 09:19 Dose: 5 mg Pyridoxine HCl (Vitamin B6 -) 50 mg PO DAILY [facility] Last Admin: 05/12/17 09:19 Dose: 50 mg Sertraline HCl (Zoloft -) 25 mg PO DAILY [facility] Last Admin: 05/12/17 09:18 Dose: 25 mg Valsartan (Diovan -) 320 mg PO DAILY [facility] Last Admin: 05/12/17 09:18 Dose: 320 mg Warfarin Sodium (Coumadin -) 5 mg PO DAILY@1800 [facility] Last Admin: 05/11/17 17:18 Dose: 5 mg - Objective Vital Signs: Vital Signs Temperature 97.6 F 05/12/17 07:31 Pulse Rate 69 05/12/17 09:18 Respiratory Rate 20 05/12/17 07:33 Blood Pressure 132/65 05/12/17 07:31 O2 Sat by Pulse Oximetry (%) 97 05/12/17 10:26 Constitutional: Yes: Calm, Thin Eyes: Yes: WNL HENT: Yes: WNL Neck: Yes: WNL Cardiovascular: Yes: Regular Rate and Rhythm, S1, S2 Respiratory: Yes: Diminished Gastrointestinal: Yes: Normal Bowel Sounds, Soft Extremities: Yes: WNL Edema: No Labs: CBC, BMP 05/12/17 06:25 05/12/17 06:25 INR, PTT INR 2.19 (0.82-1.09) H 05/12/17 06:25 Assessment/Plan Problem List - Problems (1) Acute exacerbation of chronic obstructive pulmonary disease (COPD) Code(s): J44.1 - CHRONIC OBSTRUCTIVE PULMONARY DISEASE W (ACUTE) EXACERBATION (2) Pneumonia Code(s): J18.9 - PNEUMONIA, UNSPECIFIED ORGANISM (3) Atrial fibrillation Code(s): I48.91 - UNSPECIFIED ATRIAL FIBRILLATION (4) PAD (peripheral artery disease) Code(s): I73.9 - PERIPHERAL VASCULAR DISEASE, UNSPECIFIED Assessment/Plan Acute COPD Exacerbation Pneumonia Atrial Fibrillation CAD PAD - cont medrol - inhaled bronchodilators - antibiotics - O2 to keep SpO2 >90% - BiPAP as needed to assist in work of breathing - anticoagulation -f/u chest x-rays - o2 sat rest and post exercise on ra DR GRANDE
--- NOTE | 2017-05-12 11:49 | PN ---
Progress Note (short form) - Note Progress Note: CC: sob s: sob improving. no cp palps dizzy o: Current Medications Albuterol Sulfate (Ventolin 0.083% Nebulizer Soln -) 1 amp NEB Q4H PRN PRN Reason: SHORT OF BREATH/WHEEZING Last Admin: 05/10/17 12:55 Dose: 1 amp Albuterol/Ipratropium (Duoneb -) [address] [facility] Last Admin: 05/12/17 08:45 Dose: 1 amp Ascorbic Acid (Vitamin C -) [address] [facility] Last Admin: 05/12/17 09:18 Dose: 500 mg Atorvastatin Calcium (Lipitor -) [address] [facility] Last Admin: 05/11/17 21:24 Dose: 10 mg Cholecalciferol (Vitamin D3 -) [address] [facility] Last Admin: 05/12/17 09:19 Dose: 400 unit Cyanocobalamin (Vitamin B12 -) 1,[address] [facility] Last Admin: 05/12/17 09:18 Dose: 1,000 mcg Digoxin (Lanoxin -) 0.[address] [facility] Last Admin: 05/12/17 09:18 Dose: 0.125 mg Diltiazem HCl (Cardizem Cd -) [address] [facility] Last Admin: 05/12/17 09:18 Dose: 180 mg Hydralazine HCl (Apresoline -) [address] [facility] Last Admin: 05/12/17 09:19 Dose: 25 mg Azithromycin 250 mg/ Dextrose 250 mls @ 250 mls/hr IVPB DAILY [facility] Last Admin: 05/12/17 09:14 Dose: 250 mls/hr Ceftriaxone Sodium 1 gm/ (Dextrose) 50 mls @ 100 mls/hr IVPB DAILY [facility] Last Admin: 05/12/17 09:15 Dose: 100 mls/hr Methylprednisolone Sodium Succinate (Solu-Medrol -) [address] [facility] Last Admin: 05/12/17 09:18 Dose: 40 mg Metoprolol Succinate (Toprol Xl -) [address] [facility] Last Admin: 05/12/17 09:18 Dose: 25 mg Multivitamins/Minerals/Vitamin C (Tab-A-Vit -) [address] [facility] Last Admin: 05/12/17 09:18 Dose: 1 tab Non-Formulary Medication (Fluticasone/Vilanterol [Breo Ellipta 100-25 Mcg Inh]) [address] [facility] Oxycodone HCl (Roxicodone -) 5 mg PO BID PRN PRN Reason: PAIN LEVEL 4 - 6 Last Admin: 05/12/17 09:19 Dose: 5 mg Pyridoxine HCl (Vitamin B6 -) [address] [facility] Last Admin: 05/12/17 09:19 Dose: 50 mg Sertraline HCl (Zoloft -) [address] [facility] Last Admin: 05/12/17 09:18 Dose: 25 mg Valsartan (Diovan -) [address] [facility] Last Admin: 05/12/17 09:18 Dose: 320 mg Warfarin Sodium (Coumadin -) 5 mg PO DAILY@1800 [facility] Last Admin: 05/11/17 17:18 Dose: 5 mg Vital Signs - 24 hr 05/11/17 05/11/17 05/11/17 14:00 18:40 21:00 Temperature 97.9 F 97.8 F Pulse Rate 70 100 H Respiratory 20 20 Rate Blood Pressure 121/61 141/72 O2 Sat by Pulse 96 Oximetry (%) 05/11/17 05/12/17 05/12/17 22:00 02:15 06:00 Temperature 98.1 F 97.7 F 97.6 F Pulse Rate 85 73 66 Respiratory 20 20 20 Rate Blood Pressure 137/67 147/69 129/63 O2 Sat by Pulse 96 Oximetry (%) 05/12/17 05/12/17 05/12/17 07:31 07:33 09:18 Temperature 97.6 F Pulse Rate 67 69 Respiratory 20 20 Rate Blood Pressure 132/65 O2 Sat by Pulse 96 Oximetry (%) 05/12/17 10:26 Temperature Pulse Rate Respiratory Rate Blood Pressure O2 Sat by Pulse 97 Oximetry (%) Intake & Output 05/10/17 05/11/17 05/12/17 05/13/17 07:59 07:59 07:59 07:59 Intake Total 270 240 925 Balance 270 240 925 Weight 127 lb 129 lb 3.2 oz 129 lb 3 oz nad, no jvd rrr s1s2 no mrg mild exp wheezing, dec air movement, nl eff aaox3 no le e/c/c no diaphoresis/jaundice abd nt nd pos bs CBC, BMP 05/12/17 06:25 04/03/18 06:25 Laboratory Tests 05/11/17 05/12/17 05/12/17 05:51 06:25 06:25 INR 2.19 H Magnesium 2.1 Digoxin 1.0803 ecg: demand v-pacing with either pac or [place] beat. lateral twi (present on priors) tele: demand v-pacing cxr: elevated right hemidiaphragm. minimal bibasilar pleural fluid. some congestive changes. patchy right infiltrate. questionable early left base infiltrate. echo 05/2016: tds; nl lv, nl rv size, mild marcus, mild mr, mild-mod tr, rvsp 40-50 , mod ao root dil pfts 06/2016: severe obstruction. moderate restriction. severe diffusion defect. Assessment/Plan 80 f hx afib on coumadin, htn, hld, tachy/maricruz syndrome s/p ppm, copd, pad s/p rle bypass, possible cad (equivocal MIBI), chronic sob/briones/palps likely related to anxiety, esophageal ca s/p laser treatment, here with sob. sob: -now off bipap. current presentation seems more related to copd than chf. bnp lower than priors. -cont tx copd per pmd/pulm, Infectious eval/mgm't per pmd/pulm. -see below regarding diuresis chronic diast CHF: -no signs of volume overload off diuretics. Previously on daily po lasix. daily weights, i/o's. con't to monitor for the need to add back lasix. afib: -Rate controlled on dilt plus low dose metopr and dig (dig level ok here) -cont AC with warfarin per inr htn: - suboptimal control prior to resuming home regimen. Now well controlled. tachy/maricruz syndrome s/p ppm: - Stable, cont routine outpt checks pad s/p rle bypass: -Stable, no claudication. con't med mgm't possible cad (equivocal MIBI): -No angina, continue medical management (statin, BB, ARB...no ASA (on AC))
--- NOTE | 2017-05-12 13:42 | PN ---
Progress Note, Physician Chief Complaint: Ms Moncada says she continues to improve. No cp, sob, n/v. - Current Medication List Current Medications: Active Medications Albuterol Sulfate (Ventolin 0.083% Nebulizer Soln -) 1 amp NEB Q4H PRN PRN Reason: SHORT OF BREATH/WHEEZING Last Admin: 05/10/17 12:55 Dose: 1 amp Albuterol/Ipratropium (Duoneb -) 1 amp NEB RTID [facility] Last Admin: 05/12/17 08:45 Dose: 1 amp Ascorbic Acid (Vitamin C -) 500 mg PO DAILY [facility] Last Admin: 05/12/17 09:18 Dose: 500 mg Atorvastatin Calcium (Lipitor -) 10 mg PO HS [facility] Last Admin: 05/11/17 21:24 Dose: 10 mg Cholecalciferol (Vitamin D3 -) 400 unit PO DAILY [facility] Last Admin: 05/12/17 09:19 Dose: 400 unit Cyanocobalamin (Vitamin B12 -) 1,000 mcg PO DAILY [facility] Last Admin: 05/12/17 09:18 Dose: 1,000 mcg Digoxin (Lanoxin -) 0.125 mg PO DAILY [facility] Last Admin: 05/12/17 09:18 Dose: 0.125 mg Diltiazem HCl (Cardizem Cd -) 180 mg PO DAILY [facility] Last Admin: 05/12/17 09:18 Dose: 180 mg Hydralazine HCl (Apresoline -) 25 mg PO BID [facility] Last Admin: 05/12/17 09:19 Dose: 25 mg Azithromycin 250 mg/ Dextrose 250 mls @ 250 mls/hr IVPB DAILY [facility] Last Admin: 05/12/17 09:14 Dose: 250 mls/hr Ceftriaxone Sodium 1 gm/ (Dextrose) 50 mls @ 100 mls/hr IVPB DAILY [facility] Last Admin: 05/12/17 09:15 Dose: 100 mls/hr Methylprednisolone Sodium Succinate (Solu-Medrol -) 40 mg IVPUSH BID [facility] Stop: 05/12/17 23:55 Last Admin: 05/12/17 09:18 Dose: 40 mg Metoprolol Succinate (Toprol Xl -) 25 mg PO DAILY [facility] Last Admin: 05/12/17 09:18 Dose: 25 mg Multivitamins/Minerals/Vitamin C (Tab-A-Vit -) 1 tab PO DAILY [facility] Last Admin: 05/12/17 09:18 Dose: 1 tab Non-Formulary Medication (Fluticasone/Vilanterol [Breo Ellipta 100-25 Mcg Inh]) 1 each IH DAILY [facility] Oxycodone HCl (Roxicodone -) 5 mg PO BID PRN PRN Reason: PAIN LEVEL 4 - 6 Last Admin: 05/12/17 09:19 Dose: 5 mg Prednisone (Deltasone -) 60 mg PO DAILY [facility] Pyridoxine HCl (Vitamin B6 -) 50 mg PO DAILY [facility] Last Admin: 05/12/17 09:19 Dose: 50 mg Sertraline HCl (Zoloft -) 25 mg PO DAILY [facility] Last Admin: 05/12/17 09:18 Dose: 25 mg Valsartan (Diovan -) 320 mg PO DAILY [facility] Last Admin: 05/12/17 09:18 Dose: 320 mg Warfarin Sodium (Coumadin -) 5 mg PO DAILY@1800 [facility] Last Admin: 05/11/17 17:18 Dose: 5 mg - Objective Vital Signs: Vital Signs Temperature 36.4 C 05/12/17 07:31 Pulse Rate 69 05/12/17 09:18 Respiratory Rate 20 05/12/17 07:33 Blood Pressure 132/65 05/12/17 07:31 O2 Sat by Pulse Oximetry (%) 97 05/12/17 10:26 Constitutional: Yes: Well Nourished, No Distress, Calm Cardiovascular: Yes: Regular Rate and Rhythm. No: Gallop, Murmur, Rub Respiratory: Yes: Regular, CTA Bilaterally, On Nasal O2. No: Rales, Rhonchi, Wheezes Gastrointestinal: Yes: Normal Bowel Sounds, Soft. No: Distention, Tenderness Extremities: Yes: WNL Edema: No Labs: CBC, BMP 05/12/17 06:25 05/12/17 06:25 INR, PTT INR 2.19 (0.82-1.09) H 05/12/17 06:25 Problem List - Problems (1) Respiratory failure, [id number] Code(s): J96.20 - ACUTE AND CHR RESP FAILURE, UNSP W HYPOXIA OR HYPERCAPNIA Qualifiers: Respiratory failure complication: hypoxia Qualified Code(s): J96.21 - Acute and chronic respiratory failure with hypoxia (2) Acute exacerbation of chronic obstructive pulmonary disease (COPD) Code(s): J44.1 - CHRONIC OBSTRUCTIVE PULMONARY DISEASE W (ACUTE) EXACERBATION (3) Atrial fibrillation Code(s): I48.91 - UNSPECIFIED ATRIAL FIBRILLATION Qualifiers: Atrial fibrillation type: chronic Qualified Code(s): I48.2 - Chronic atrial fibrillation (4) Hyperlipidemia Code(s): E78.5 - HYPERLIPIDEMIA, UNSPECIFIED (5) Hypertension Code(s): I10 - ESSENTIAL (PRIMARY) HYPERTENSION (6) Pneumonia Code(s): J18.9 - PNEUMONIA, UNSPECIFIED ORGANISM (7) Diastolic CHF Code(s): I50.30 - UNSPECIFIED DIASTOLIC (CONGESTIVE) HEART FAILURE Qualifiers: Heart failure chronicity: chronic Qualified Code(s): I50.32 - Chronic diastolic (congestive) heart failure Assessment/Plan (1) Respiratory failure, [id number] Assessment/Plan: -much improved -appreciate pulmonary assistance -continue solumedrol today, change to prednisone tomorrow -pre and post to evaluate for home oxygen -plan for discharge tomorrow Code(s): J96.20 - ACUTE AND CHR RESP FAILURE, UNSP W HYPOXIA OR HYPERCAPNIA Qualifiers: Respiratory failure complication: hypoxia Qualified Code(s): J96.21 - Acute and chronic respiratory failure with hypoxia (2) Acute exacerbation of chronic obstructive pulmonary disease (COPD) Assessment/Plan: -as above -continue solumedrol, change to prednisone tomorrow -continue duonebs -continue rocephin/zithromax for pneumonia, day 3 Code(s): J44.1 - CHRONIC OBSTRUCTIVE PULMONARY DISEASE W (ACUTE) EXACERBATION (3) Atrial fibrillation Assessment/Plan: -rate controlled -coumadin restarted -continue current regimen Code(s): I48.91 - UNSPECIFIED ATRIAL FIBRILLATION Qualifiers: Atrial fibrillation type: chronic Qualified Code(s): I48.2 - Chronic atrial fibrillation (4) Hyperlipidemia Assessment/Plan: -continue statin Code(s): E78.5 - HYPERLIPIDEMIA, UNSPECIFIED (5) Hypertension Assessment/Plan: -controlled -continue diltiazem, toprol xl, valsartan, and hydralazine Code(s): I10 - ESSENTIAL (PRIMARY) HYPERTENSION (6) Pneumonia Assessment/Plan: -continue rocephin and zithromax day 3 -no fevers or leukocytosis -safe for discharge on oral medications tomorrow Code(s): J18.9 - PNEUMONIA, UNSPECIFIED ORGANISM (7) Diastolic CHF Assessment/Plan: -defer starting lasix to cardiology Code(s): I50.30 - UNSPECIFIED DIASTOLIC (CONGESTIVE) HEART FAILURE Qualifiers: Heart failure chronicity: chronic Qualified Code(s): I50.32 - Chronic diastolic (congestive) heart failure Dispo -discharge tomorrow
[2017-05-12] MEDS: WARFARIN NA 5 MG TABLET (UD) PO SCH (17:35)
[2017-05-12] MEDS: ATORVASTATIN CA 10 MG TABLET (FP) PO SCH (21:07)
[2017-05-13] MEDS: oxyCODONE HCL 5 MG TABLET PO PRN ×2 (03:56→16:20)
[2017-05-13 07:34] LABS: BASO % 0.1 % (0-2.0); HEMATOCRIT 35.6 % (32.4-45.2); HEMOGLOBIN 11.6 GM/dL (10.7-15.3); LYMPH % 2.6 % (8-40); MCH 29.8 pg (25.7-33.7); MCHC 32.6 g/dl (32.0-36.0); MEAN CELL VOLUME 91.6 fl (80-96); MEAN PLT VOLUME 9.9 fl (7.5-11.1); MONO % 3.7 % (3.8-10.2); NEUT % 93.6 % (42.8-82.8); PLATELET COUNT 212 K/MM3 (134-434); RBC 3.88 M/mm3 (3.60-5.2); RDW 16.6 % (11.6-15.6); WHITE BLOOD COUNT 11.4 K/mm3 (4.0-10.0)
[2017-05-13] MEDS: ALBUTEROL SO4 2.5/IPRATROPIUM 0.5 INH SOL 3 ML VIAL.NEB. NEB SCH ×3 (07:45→21:12)
[2017-05-13 08:00] LABS: CHLORIDE 105 mmol/L (98-107); GLUCOSE,RANDOM 138 mg/dL (74-106); POTASSIUM 4.5 mmol/L (3.5-5.1); SODIUM 143 mmol/L (136-145)
[2017-05-13 08:06] LABS: ANION GAP 11 (8-16); BLOOD UREA NITROGEN 36 mg/dL (7-18); CALCIUM 8.9 mg/dL (8.5-10.1); CO2 27 mmol/L (21-32); CREATININE 1.2 mg/dL (0.55-1.02); MAGNESIUM 2.2 mg/dL (1.8-2.4); PHOSPHOROUS 4.3 mg/dL (2.5-4.9)
[2017-05-13 08:15] LABS: PROTHROMBIN TIME (PATIENT) 50.4 SEC (9.98-11.88)
[2017-05-13 08:24] LABS: INR 4.46 (0.82-1.09)
[2017-05-13] MEDS ORDERED: PT OWN MED DRAWER 7, Y5N ONE (09:09)
[2017-05-13] MEDS ORDERED: cefTRIAXone SODIUM 1 GM VIAL ONE (09:09)
[2017-05-13] MEDS ORDERED: DEXTROSE 5%-WATER - 50 ML IVPB ONE (09:09)
[2017-05-13] MEDS: CEFTRIAXONE 1 GM in DEXTROSE 5%-WATER - 50 ML IVPB SCH (09:25)
[2017-05-13] MEDS: VALSARTAN 160 MG TABLET (UD) PO SCH (09:25)
[2017-05-13] MEDS: hydrALAZINE HCL 25 MG TABLET (FP) PO SCH ×2 (09:25→23:15)
[2017-05-13] MEDS: predniSONE 20 MG TABLET (UD) PO SCH (09:25)
[2017-05-13] MEDS: CYANOCOBALAMIN 1,000 MCG TABLET (FP) PO SCH (09:25)
[2017-05-13] MEDS: DIGOXIN 0.125 MG TABLET (FP) PO SCH (09:26)
[2017-05-13] MEDS: SERTRALINE HCL 25 MG TABLET (FP) PO SCH (09:26)
[2017-05-13] MEDS: MULTIVITAMINS (DAILY MVI) TABLET (FP) PO SCH (09:26)
[2017-05-13] MEDS: ASCORBIC ACID 500 MG TABLET (FP) PO SCH (09:26)
[2017-05-13] MEDS: metoPROLOL SUCCINATE 25 MG TAB.SR.24H (FP) PO SCH (09:26)
[2017-05-13] MEDS: AZITHROMYCIN IVPB 250 MG in DEXTROSE 5%-WATER - 250 ML IVPB SCH (09:26)
[2017-05-13] MEDS: CHOLECALCIFEROL (VITAMIN D3) 400 UNIT TABLET (FP) PO SCH (09:27)
[2017-05-13] MEDS: PYRIDOXINE HCL (B-6) 50 MG TABLET (FP) PO SCH (09:27)
--- NOTE | 2017-05-13 10:45 | PN ---
Progress Note (short form) - Note Progress Note: s: . no sob cp palps dizzy. asking to go home o: Vital Signs Period Temp Pulse Resp BP Sys/Wahl Pulse Ox Last 24 Hr 97.6 F-98.7 F 64-95 18-50 125-143/58-96 91-95 nad, no jvd rrr s1s2 no mrg cta bl, nl eff aaox3 no le e/c/c no diaphoresis/jaundice abd nt nd pos bs Current Medications Generic Name Dose Route Start Last Admin Trade Name Freq PRN Reason Stop Dose Admin Albuterol Sulfate 1 amp 05/09/17 18:46 05/10/17 12:55 Ventolin 0.083% Nebulizer Soln - NEB 1 amp Q4H PRN Administration SHORT OF BREATH/WHEEZING Albuterol/Ipratropium 1 amp 05/10/17 14:00 05/13/17 07:45 Duoneb - NEB 1 amp RTID [facility] Administration Ascorbic Acid 500 mg 05/10/17 10:00 05/13/17 09:26 Vitamin C - PO 500 mg DAILY [facility] Administration Atorvastatin Calcium 10 mg 05/09/17 22:00 05/12/17 21:07 Lipitor - PO 10 mg HS [facility] Administration Cholecalciferol 400 unit 05/10/17 10:00 05/13/17 09:27 Vitamin D3 - PO 400 unit DAILY [facility] Administration Cyanocobalamin 1,000 mcg 05/10/17 10:00 05/13/17 09:25 Vitamin B12 - PO 1,000 mcg DAILY [facility] Administration Digoxin 0.125 mg 05/10/17 10:00 05/13/17 09:26 Lanoxin - PO 0.125 mg DAILY [facility] Administration Diltiazem HCl 180 mg 05/10/17 10:00 05/13/17 09:26 Cardizem Cd - PO 180 mg DAILY [facility] Administration Hydralazine HCl 25 mg 05/09/17 22:00 05/13/17 09:25 Apresoline - PO 25 mg BID [facility] Administration Azithromycin 250 mg/ Dextrose 250 mls @ 250 mls/hr 05/10/17 10:00 05/13/17 09 :26 IVPB 250 mls/hr DAILY [facility] Administration Ceftriaxone Sodium 1 gm/ 50 mls @ 100 mls/hr 05/10/17 10:00 05/13/17 09:25 Dextrose IVPB 100 mls/hr DAILY [facility] Administration Metoprolol Succinate 25 mg 05/11/17 10:00 05/13/17 09:26 Toprol Xl - PO 25 mg DAILY [facility] Administration Multivitamins/Minerals/Vitamin C 1 tab 05/10/17 10:00 05/13/17 09:26 Tab-A-Vit - PO 1 tab DAILY [facility] Administration Non-Formulary Medication 1 each 05/10/17 10:00 Fluticasone/Vilanterol [Breo Ellipta 100-25 Mcg Inh] IH DAILY [facility] Oxycodone HCl 5 mg 05/09/17 18:20 05/13/17 03:56 Roxicodone - PO 5 mg BID PRN Administration PAIN LEVEL 4 - 6 Prednisone 60 mg 05/13/17 10:00 05/13/17 09:25 Deltasone - PO 60 mg DAILY [facility] Administration Pyridoxine HCl 50 mg 05/10/17 10:00 05/13/17 09:27 Vitamin B6 - PO 50 mg DAILY [facility] Administration Sertraline HCl 25 mg 05/10/17 10:00 05/13/17 09:26 Zoloft - PO 25 mg DAILY [facility] Administration Valsartan 320 mg 05/10/17 10:00 05/13/17 09:25 Diovan - PO 320 mg DAILY [facility] Administration Laboratory Last Values WBC 11.4 K/mm3 (4.0-10.0) H 05/13/17 07:04 RBC 3.88 M/mm3 (3.60-5.2) 05/13/17 07:04 Hgb 11.6 GM/dL (10.7-15.3) 05/13/17 07:04 Hct 35.6 % (32.4-45.2) 05/13/17 07:04 MCV 91.6 fl (80-96) 05/13/17 07:04 MCH 29.8 pg (25.7-33.7) 05/13/17 07:04 MCHC 32.6 g/dl (32.0-36.0) 05/13/17 07:04 RDW 16.6 % (11.6-15.6) H 05/13/17 07:04 Plt Count 212 K/MM3 (134-434) 05/13/17 07:04 MPV 9.9 fl (7.5-11.1) 05/13/17 07:04 Neutrophils % 93.6 % (42.8-82.8) H 05/13/17 07:04 Lymphocytes % 2.6 % (8-40) L D 05/13/17 07:04 Monocytes % 3.7 % (3.8-10.2) L 05/13/17 07:04 Eosinophils % 0.0 % (0-4.5) 05/13/17 07:04 Basophils % 0.1 % (0-2.0) D 05/13/17 07:04 PT with INR 50.40 SEC (9.98-11.88) H 05/13/17 07:04 INR 4.46 (0.82-1.09) H* D 05/13/17 07:04 Anticoagulation Therapy No Result Required. 05/09/17 09:14 Puncture Site Right radial 05/09/17 09:14 ABG pH 7.42 (7.35-7.45) 05/09/17 09:14 ABG pCO2 at Pt Temp 39.5 mmHg (35-45) 05/09/17 09:14 ABG pO2 at Pt Temp 77.8 mmHg (68-100) 05/09/17 09:14 ABG HCO3 25.2 meq/L (22-26) 05/09/17 09:14 ABG O2 Sat (Measured) 96.1 % (90-98.9) 05/09/17 09:14 ABG O2 Content 15.5 % vol (15-22) 05/09/17 09:14 ABG Base Excess 1.3 meq/l (-2-2) 05/09/17 09:14 Gil Test Positive 05/09/17 09:14 O2 Delivery Device No Result Required. 05/09/17 09:14 Oxygen Flow Rate Yes 05/09/17 09:14 Vent Mode No Result Required. 05/09/17 09:14 Vent Rate No Result Required. 05/09/17 09:14 Mechanical Rate No Result Required. 05/09/17 09:14 Pressure Support Vent No Result Required. 05/09/17 09:14 Sodium 143 mmol/L (136-145) 05/13/17 07:04 Potassium 4.5 mmol/L (3.5-5.1) 05/13/17 07:04 Chloride 105 mmol/L (98-107) 05/13/17 07:04 Carbon Dioxide 27 mmol/L (21-32) 05/13/17 07:04 Anion Gap 11 (8-16) 05/13/17 07:04 BUN 36 mg/dL (7-18) H 05/13/17 07:04 Creatinine 1.2 mg/dL (0.55-1.02) H 05/13/17 07:04 Creat Clearance w eGFR 53.21 (>60) 05/10/17 06:30 Random Glucose 138 mg/dL (74-106) H 05/13/17 07:04 Calcium 8.9 mg/dL (8.5-10.1) 05/13/17 07:04 Phosphorus 4.3 mg/dL (2.5-4.9) 05/13/17 07:04 Magnesium 2.2 mg/dL (1.8-2.4) 05/13/17 07:04 Total Bilirubin 0.4 mg/dL (0.2-1.0) 05/10/17 06:30 AST 27 U/L (15-37) 05/10/17 06:30 ALT 36 U/L (12-78) 05/10/17 06:30 Alkaline Phosphatase 87 U/L (45-117) 05/10/17 06:30 Creatine Kinase 88 IU/L (26-192) 05/09/17 08:35 Troponin I 0.05 ng/ml (0.00-0.05) 05/09/17 08:35 B-Natriuretic Peptide 3943.85 pg/ml (5-450) H 05/09/17 08:35 Total Protein 6.7 g/dl (6.4-8.2) 05/10/17 06:30 Albumin 3.5 g/dl (3.4-5.0) 05/10/17 06:30 Digoxin 1.0803 ng/ml (0.8-2.0) 05/11/17 05:51 ecg: demand v-pacing with either pac or [place] beat. lateral twi (present on priors) tele: demand v-pacing cxr: elevated right hemidiaphragm. minimal bibasilar pleural fluid. some congestive changes. patchy right infiltrate. questionable early left base infiltrate. echo 05/2016: tds; nl lv, nl rv size, mild marcus, mild mr, mild-mod tr, rvsp 40-50 , mod ao root dil pfts 06/2016: severe obstruction. moderate restriction. severe diffusion defect. Assessment/Plan 80 f hx afib on coumadin, htn, hld, tachy/maricruz syndrome s/p ppm, copd, pad s/p rle bypass, possible cad (equivocal MIBI), chronic sob/briones/palps likely related to anxiety, esophageal ca s/p laser treatment, here with sob. sob: -now off bipap. current presentation seems more related to copd than chf. bnp lower than priors. -cont tx copd per pmd/pulm, Infectious eval/mgm't per pmd/pulm. -see below regarding diuresis chronic diast CHF: -no signs of volume overload off diuretics. Previously on daily po lasix. daily weights, i/o's. con't to monitor for the need to add back lasix. afib: -Rate controlled on dilt plus low dose metopr and dig (dig level ok here) -cont AC with warfarin per inr htn: -controlled tachy/maricruz syndrome s/p ppm: - Stable, cont routine outpt checks pad s/p rle bypass: -Stable, no claudication. con't med mgm't possible cad (equivocal MIBI): -No angina, continue medical management (statin, BB, ARB...no ASA (on AC)) cardiac smith stable
--- NOTE | 2017-05-13 11:35 | PN ---
Progress Note, Physician Chief Complaint: Ms Moncada is without complaint. Denies cp, sob, n/v. Disappointed unable to go home today. State that she has been losing weight unintentionally and also that she has more moles on her back and that one has been growing over the past year. - Current Medication List Current Medications: Active Medications Albuterol Sulfate (Ventolin 0.083% Nebulizer Soln -) 1 amp NEB Q4H PRN PRN Reason: SHORT OF BREATH/WHEEZING Last Admin: 05/10/17 12:55 Dose: 1 amp Albuterol/Ipratropium (Duoneb -) 1 amp NEB RTID [facility] Last Admin: 05/13/17 07:45 Dose: 1 amp Ascorbic Acid (Vitamin C -) 500 mg PO DAILY [facility] Last Admin: 05/13/17 09:26 Dose: 500 mg Atorvastatin Calcium (Lipitor -) 10 mg PO HS [facility] Last Admin: 05/12/17 21:07 Dose: 10 mg Cholecalciferol (Vitamin D3 -) 400 unit PO DAILY [facility] Last Admin: 05/13/17 09:27 Dose: 400 unit Cyanocobalamin (Vitamin B12 -) 1,000 mcg PO DAILY [facility] Last Admin: 05/13/17 09:25 Dose: 1,000 mcg Digoxin (Lanoxin -) 0.125 mg PO DAILY [facility] Last Admin: 05/13/17 09:26 Dose: 0.125 mg Diltiazem HCl (Cardizem Cd -) 180 mg PO DAILY [facility] Last Admin: 05/13/17 09:26 Dose: 180 mg Hydralazine HCl (Apresoline -) 25 mg PO BID [facility] Last Admin: 05/13/17 09:25 Dose: 25 mg Azithromycin 250 mg/ Dextrose 250 mls @ 250 mls/hr IVPB DAILY [facility] Last Admin: 05/13/17 09:26 Dose: 250 mls/hr Ceftriaxone Sodium 1 gm/ (Dextrose) 50 mls @ 100 mls/hr IVPB DAILY [facility] Last Admin: 05/13/17 09:25 Dose: 100 mls/hr Metoprolol Succinate (Toprol Xl -) 25 mg PO DAILY [facility] Last Admin: 05/13/17 09:26 Dose: 25 mg Multivitamins/Minerals/Vitamin C (Tab-A-Vit -) 1 tab PO DAILY [facility] Last Admin: 05/13/17 09:26 Dose: 1 tab Non-Formulary Medication (Fluticasone/Vilanterol [Breo Ellipta 100-25 Mcg Inh]) 1 each IH DAILY [facility] Oxycodone HCl (Roxicodone -) 5 mg PO BID PRN PRN Reason: PAIN LEVEL 4 - 6 Last Admin: 05/13/17 03:56 Dose: 5 mg Phytonadione (Aqua Mephyton Injection -) 1 mg IM ONCE ONE Stop: 05/13/17 11:35 Prednisone (Deltasone -) 60 mg PO DAILY [facility] Last Admin: 05/13/17 09:25 Dose: 60 mg Pyridoxine HCl (Vitamin B6 -) 50 mg PO DAILY [facility] Last Admin: 05/13/17 09:27 Dose: 50 mg Sertraline HCl (Zoloft -) 25 mg PO DAILY [facility] Last Admin: 05/13/17 09:26 Dose: 25 mg Valsartan (Diovan -) 320 mg PO DAILY [facility] Last Admin: 05/13/17 09:25 Dose: 320 mg - Objective Vital Signs: Vital Signs Temperature 36.9 C 05/13/17 09:57 Pulse Rate 80 05/13/17 09:57 Respiratory Rate 18 05/13/17 09:57 Blood Pressure 142/58 05/13/17 09:57 O2 Sat by Pulse Oximetry (%) 95 05/12/17 20:32 Constitutional: Yes: Well Nourished, No Distress, Calm Cardiovascular: Yes: Regular Rate and Rhythm. No: Gallop, Murmur, Rub Respiratory: Yes: Regular, CTA Bilaterally. No: Rales, Rhonchi, Wheezes Gastrointestinal: Yes: Normal Bowel Sounds, Soft. No: Distention, Tenderness Extremities: Yes: WNL Edema: No Labs: CBC, BMP 05/13/17 07:04 05/13/17 07:04 INR, PTT INR 4.46 (0.82-1.09) H* D 05/13/17 07:04 Problem List - Problems (1) Lung mass Code(s): R91.8 - OTHER NONSPECIFIC ABNORMAL FINDING OF LUNG FIELD (2) Coumadin toxicity Code(s): T45.511A - POISONING BY ANTICOAGULANTS, ACCIDENTAL, INIT (3) Respiratory failure, [id number] Code(s): J96.20 - ACUTE AND CHR RESP FAILURE, UNSP W HYPOXIA OR HYPERCAPNIA Qualifiers: Respiratory failure complication: hypoxia Qualified Code(s): J96.21 - Acute and chronic respiratory failure with hypoxia (4) Acute exacerbation of chronic obstructive pulmonary disease (COPD) Code(s): J44.1 - CHRONIC OBSTRUCTIVE PULMONARY DISEASE W (ACUTE) EXACERBATION (5) Atrial fibrillation Code(s): I48.91 - UNSPECIFIED ATRIAL FIBRILLATION Qualifiers: Atrial fibrillation type: chronic Qualified Code(s): I48.2 - Chronic atrial fibrillation (6) Hyperlipidemia Code(s): E78.5 - HYPERLIPIDEMIA, UNSPECIFIED (7) Hypertension Code(s): I10 - ESSENTIAL (PRIMARY) HYPERTENSION (8) Pneumonia Code(s): J18.9 - PNEUMONIA, UNSPECIFIED ORGANISM (9) Diastolic CHF Code(s): I50.30 - UNSPECIFIED DIASTOLIC (CONGESTIVE) HEART FAILURE Qualifiers: Heart failure chronicity: chronic Qualified Code(s): I50.32 - Chronic diastolic (congestive) heart failure Assessment/Plan (1) Respiratory failure, [id number] Assessment/Plan: -at baseline -changed to prednisone today, can taper as outpatient when ready for discharge -continue duonebs -ready for discharge from this standpoint -pre and post shows requires oxygen but may need to repeat secondary to inability to discharge today Code(s): J96.20 - ACUTE AND CHR RESP FAILURE, UNSP W HYPOXIA OR HYPERCAPNIA Qualifiers: Respiratory failure complication: hypoxia Qualified Code(s): J96.21 - Acute and chronic respiratory failure with hypoxia (2) Acute exacerbation of chronic obstructive pulmonary disease (COPD) Assessment/Plan: -as above -started on prednisone today -continue duonebs -continue rocephin/zithromax for pneumonia, day 4 Code(s): J44.1 - CHRONIC OBSTRUCTIVE PULMONARY DISEASE W (ACUTE) EXACERBATION (3) Atrial fibrillation Assessment/Plan: -rate controlled -hold coumadin -low dose vitamin k since will need thoracentesis Code(s): I48.91 - UNSPECIFIED ATRIAL FIBRILLATION Qualifiers: Atrial fibrillation type: chronic Qualified Code(s): I48.2 - Chronic atrial fibrillation (4) Hyperlipidemia Assessment/Plan: -continue statin Code(s): E78.5 - HYPERLIPIDEMIA, UNSPECIFIED (5) Hypertension Assessment/Plan: -controlled -continue diltiazem, toprol xl, valsartan, and hydralazine Code(s): I10 - ESSENTIAL (PRIMARY) HYPERTENSION (6) Pneumonia Assessment/Plan: -continue rocephin and zithromax day 4 -no fevers or leukocytosis -transition to oral antibiotics when ready for discharge Code(s): J18.9 - PNEUMONIA, UNSPECIFIED ORGANISM (7) Diastolic CHF Assessment/Plan: -defer starting lasix to cardiology Code(s): I50.30 - UNSPECIFIED DIASTOLIC (CONGESTIVE) HEART FAILURE Qualifiers: Heart failure chronicity: chronic Qualified Code(s): I50.32 - Chronic diastolic (congestive) heart failure (8) Lung mass -mass found on CT scan -also with pleural effusion -case d/w pulmonary -plan for thoracentesis, send for cytology -also concerning since states developed more moles and also largest mole is growing -minimal tobacco history but states was in the sun a lot throughout life -also with unintentional weight loss -concerning for malignancy, primary lung vs metastatic -consult dermatology as well for biopsy (9) Coumadin toxicity -hold coumadin -give low dose vitamin k since planning for thoracentesis -recheck in am
--- NOTE | 2017-05-13 11:51 | PN ---
Progress Note, Physician History of Present Illness: PULMONARY ALERT,FEELING BETTER,LESS DYSPNEIC. CHEST CT R HILAR MASS, R PLEURAL EFFUSION - Current Medication List Current Medications: Active Medications Albuterol Sulfate (Ventolin 0.083% Nebulizer Soln -) 1 amp NEB Q4H PRN PRN Reason: SHORT OF BREATH/WHEEZING Last Admin: 05/10/17 12:55 Dose: 1 amp Albuterol/Ipratropium (Duoneb -) 1 amp NEB RTID [facility] Last Admin: 05/13/17 07:45 Dose: 1 amp Ascorbic Acid (Vitamin C -) 500 mg PO DAILY [facility] Last Admin: 05/13/17 09:26 Dose: 500 mg Atorvastatin Calcium (Lipitor -) 10 mg PO HS [facility] Last Admin: 05/12/17 21:07 Dose: 10 mg Cholecalciferol (Vitamin D3 -) 400 unit PO DAILY [facility] Last Admin: 05/13/17 09:27 Dose: 400 unit Cyanocobalamin (Vitamin B12 -) 1,000 mcg PO DAILY [facility] Last Admin: 05/13/17 09:25 Dose: 1,000 mcg Digoxin (Lanoxin -) 0.125 mg PO DAILY [facility] Last Admin: 05/13/17 09:26 Dose: 0.125 mg Diltiazem HCl (Cardizem Cd -) 180 mg PO DAILY [facility] Last Admin: 05/13/17 09:26 Dose: 180 mg Hydralazine HCl (Apresoline -) 25 mg PO BID [facility] Last Admin: 05/13/17 09:25 Dose: 25 mg Azithromycin 250 mg/ Dextrose 250 mls @ 250 mls/hr IVPB DAILY [facility] Last Admin: 05/13/17 09:26 Dose: 250 mls/hr Ceftriaxone Sodium 1 gm/ (Dextrose) 50 mls @ 100 mls/hr IVPB DAILY [facility] Last Admin: 05/13/17 09:25 Dose: 100 mls/hr Metoprolol Succinate (Toprol Xl -) 25 mg PO DAILY [facility] Last Admin: 05/13/17 09:26 Dose: 25 mg Multivitamins/Minerals/Vitamin C (Tab-A-Vit -) 1 tab PO DAILY [facility] Last Admin: 05/13/17 09:26 Dose: 1 tab Non-Formulary Medication (Fluticasone/Vilanterol [Breo Ellipta 100-25 Mcg Inh]) 1 each IH DAILY [facility] Oxycodone HCl (Roxicodone -) 5 mg PO BID PRN PRN Reason: PAIN LEVEL 4 - 6 Last Admin: 05/13/17 03:56 Dose: 5 mg Phytonadione (Aqua Mephyton Injection -) 1 mg IM ONCE ONE Stop: 05/13/17 11:35 Prednisone (Deltasone -) 60 mg PO DAILY [facility] Last Admin: 05/13/17 09:25 Dose: 60 mg Pyridoxine HCl (Vitamin B6 -) 50 mg PO DAILY [facility] Last Admin: 05/13/17 09:27 Dose: 50 mg Sertraline HCl (Zoloft -) 25 mg PO DAILY [facility] Last Admin: 05/13/17 09:26 Dose: 25 mg Valsartan (Diovan -) 320 mg PO DAILY [facility] Last Admin: 05/13/17 09:25 Dose: 320 mg - Objective Vital Signs: Vital Signs Temperature 98.4 F 05/13/17 09:57 Pulse Rate 80 05/13/17 09:57 Respiratory Rate 18 05/13/17 09:57 Blood Pressure 142/58 05/13/17 09:57 O2 Sat by Pulse Oximetry (%) 95 05/12/17 20:32 Constitutional: Yes: Well Nourished, Calm Eyes: Yes: WNL HENT: Yes: WNL Neck: Yes: WNL Cardiovascular: Yes: Pulse Irregular, S1, S2 Respiratory: Yes: Diminished (DIMINISHED BS R BASE) Gastrointestinal: Yes: Normal Bowel Sounds, Soft Extremities: Yes: WNL Edema: No Labs: CBC, BMP 05/13/17 07:04 05/13/17 07:04 INR, PTT INR 4.46 (0.82-1.09) H* D 05/13/17 07:04 Assessment/Plan Problem List - Problems (1) Acute exacerbation of chronic obstructive pulmonary disease (COPD) Code(s): J44.1 - CHRONIC OBSTRUCTIVE PULMONARY DISEASE W (ACUTE) EXACERBATION (2) Pneumonia Code(s): J18.9 - PNEUMONIA, UNSPECIFIED ORGANISM (3) Atrial fibrillation Code(s): I48.91 - UNSPECIFIED ATRIAL FIBRILLATION (4) PAD (peripheral artery disease) Code(s): I73.9 - PERIPHERAL VASCULAR DISEASE, UNSPECIFIED Assessment/Plan Acute COPD Exacerbation R hilar mass Pneumonia Atrial Fibrillation CAD PAD - prednisone - thoracentesis - flex bronch if thoracentesis non-diagnostic - inhaled bronchodilators - antibiotics - O2 to keep SpO2 >90% - BiPAP as needed to assist in work of breathing - hold ac - o2 sat rest and post exercise on ra DR GRANDE
[2017-05-13] MEDS ORDERED: PHYTONADIONE 10 MG/1 ML AMP IM ONE (12:30)
[2017-05-13] MEDS: ATORVASTATIN CA 10 MG TABLET (FP) PO SCH (23:15)
[2017-05-14 07:11] LABS: BASO % 0.1 % (0-2.0); HEMATOCRIT 37.2 % (32.4-45.2); HEMOGLOBIN 12.3 GM/dL (10.7-15.3); LYMPH % 9.1 % (8-40); MCH 29.9 pg (25.7-33.7); MEAN CELL VOLUME 90.8 fl (80-96); NEUT % 79.8 % (42.8-82.8); PLATELET COUNT 226 K/MM3 (134-434); RBC 4.09 M/mm3 (3.60-5.2); RDW 15.9 % (11.6-15.6); WHITE BLOOD COUNT 12.2 K/mm3 (4.0-10.0)
[2017-05-14 07:36] LABS: PROTHROMBIN TIME (PATIENT) 51.8 SEC (9.98-11.88)
[2017-05-14] MEDS: ALBUTEROL SO4 2.5/IPRATROPIUM 0.5 INH SOL 3 ML VIAL.NEB. NEB SCH ×3 (07:40→20:06)
[2017-05-14] MEDS: oxyCODONE HCL 5 MG TABLET PO PRN ×2 (07:52→21:20)
[2017-05-14 07:53] LABS: CHLORIDE 104 mmol/L (98-107); POTASSIUM 4.2 mmol/L (3.5-5.1); SODIUM 143 mmol/L (136-145)
[2017-05-14 08:02] LABS: ANION GAP 10 (8-16); BLOOD UREA NITROGEN 33 mg/dL (7-18); CALCIUM 8.8 mg/dL (8.5-10.1); CO2 29 mmol/L (21-32); CREATININE 1.1 mg/dL (0.55-1.02); GLUCOSE,RANDOM 78 mg/dL (74-106); MAGNESIUM 2.3 mg/dL (1.8-2.4); PHOSPHOROUS 3.1 mg/dL (2.5-4.9)
[2017-05-14 08:20] LABS: INR 4.58 (0.82-1.09)
[2017-05-14] MEDS ORDERED: cefTRIAXone SODIUM 1 GM VIAL ONE (09:05)
[2017-05-14] MEDS ORDERED: DEXTROSE 5%-WATER - 50 ML IVPB ONE (09:06)
[2017-05-14] MEDS: CEFTRIAXONE 1 GM in DEXTROSE 5%-WATER - 50 ML IVPB SCH (09:48)
[2017-05-14] MEDS: predniSONE 20 MG TABLET (UD) PO SCH (09:58)
[2017-05-14] MEDS: hydrALAZINE HCL 25 MG TABLET (FP) PO SCH ×2 (09:58→21:20)
[2017-05-14] MEDS: DIGOXIN 0.125 MG TABLET (FP) PO SCH (09:59)
[2017-05-14] MEDS: VALSARTAN 160 MG TABLET (UD) PO SCH (09:59)
[2017-05-14] MEDS: PYRIDOXINE HCL (B-6) 50 MG TABLET (FP) PO SCH (10:02)
[2017-05-14] MEDS: CYANOCOBALAMIN 1,000 MCG TABLET (FP) PO SCH (10:02)
[2017-05-14] MEDS: MULTIVITAMINS (DAILY MVI) TABLET (FP) PO SCH (10:02)
[2017-05-14] MEDS: metoPROLOL SUCCINATE 25 MG TAB.SR.24H (FP) PO SCH (10:02)
[2017-05-14] MEDS: ASCORBIC ACID 500 MG TABLET (FP) PO SCH (10:03)
[2017-05-14] MEDS: AZITHROMYCIN IVPB 250 MG in DEXTROSE 5%-WATER - 250 ML IVPB SCH (10:04)
[2017-05-14] MEDS: SERTRALINE HCL 25 MG TABLET (FP) PO SCH (10:04)
[2017-05-14] MEDS: CHOLECALCIFEROL (VITAMIN D3) 400 UNIT TABLET (FP) PO SCH (10:04)
[2017-05-14] MEDS ORDERED: PHYTONADIONE 10 MG/1 ML AMP IM ONE (10:05)
--- NOTE | 2017-05-14 10:16 | PN ---
Progress Note, Physician Chief Complaint: Ms Moncada is without complaint. Denies cp, sob, n/v. Says she is feeling good. - Current Medication List Current Medications: Active Medications Albuterol Sulfate (Ventolin 0.083% Nebulizer Soln -) 1 amp NEB Q4H PRN PRN Reason: SHORT OF BREATH/WHEEZING Last Admin: 05/10/17 12:55 Dose: 1 amp Albuterol/Ipratropium (Duoneb -) 1 amp NEB RTID [facility] Last Admin: 05/14/17 07:40 Dose: Not Given Ascorbic Acid (Vitamin C -) 500 mg PO DAILY [facility] Last Admin: 05/14/17 10:03 Dose: 500 mg Atorvastatin Calcium (Lipitor -) 10 mg PO HS [facility] Last Admin: 05/13/17 23:15 Dose: 10 mg Cholecalciferol (Vitamin D3 -) 400 unit PO DAILY [facility] Last Admin: 05/14/17 10:04 Dose: 400 unit Cyanocobalamin (Vitamin B12 -) 1,000 mcg PO DAILY [facility] Last Admin: 05/14/17 10:02 Dose: 1,000 mcg Digoxin (Lanoxin -) 0.125 mg PO DAILY [facility] Last Admin: 05/14/17 09:59 Dose: 0.125 mg Diltiazem HCl (Cardizem Cd -) 180 mg PO DAILY [facility] Last Admin: 05/14/17 09:58 Dose: 180 mg Hydralazine HCl (Apresoline -) 25 mg PO BID [facility] Last Admin: 05/14/17 09:58 Dose: 25 mg Azithromycin 250 mg/ Dextrose 250 mls @ 250 mls/hr IVPB DAILY [facility] Last Admin: 05/14/17 10:04 Dose: 250 mls/hr Ceftriaxone Sodium 1 gm/ (Dextrose) 50 mls @ 100 mls/hr IVPB DAILY [facility] Last Admin: 05/14/17 09:48 Dose: 100 mls/hr Metoprolol Succinate (Toprol Xl -) 25 mg PO DAILY [facility] Last Admin: 05/14/17 10:02 Dose: 25 mg Multivitamins/Minerals/Vitamin C (Tab-A-Vit -) 1 tab PO DAILY [facility] Last Admin: 05/14/17 10:02 Dose: 1 tab Non-Formulary Medication (Fluticasone/Vilanterol [Breo Ellipta 100-25 Mcg Inh]) 1 each IH DAILY [facility] Oxycodone HCl (Roxicodone -) 5 mg PO BID PRN PRN Reason: PAIN LEVEL 4 - 6 Last Admin: 05/14/17 07:52 Dose: 5 mg Prednisone (Deltasone -) 60 mg PO DAILY [facility] Last Admin: 05/14/17 09:58 Dose: 60 mg Pyridoxine HCl (Vitamin B6 -) 50 mg PO DAILY [facility] Last Admin: 05/14/17 10:02 Dose: 50 mg Sertraline HCl (Zoloft -) 25 mg PO DAILY [facility] Last Admin: 05/14/17 10:04 Dose: 25 mg Valsartan (Diovan -) 320 mg PO DAILY [facility] Last Admin: 05/14/17 09:59 Dose: 320 mg - Objective Vital Signs: Vital Signs Temperature 36.4 C 05/14/17 06:00 Pulse Rate 65 05/14/17 09:59 Respiratory Rate 20 05/14/17 06:00 Blood Pressure 163/81 05/14/17 06:00 O2 Sat by Pulse Oximetry (%) 97 05/13/17 22:00 Constitutional: Yes: Well Nourished, No Distress, Calm Cardiovascular: Yes: Pulse Irregular. No: Tachycardia, Gallop, Murmur, Rub Respiratory: Yes: Regular, Rhonchi (slight). No: CTA Bilaterally, Rales, Wheezes Gastrointestinal: Yes: Normal Bowel Sounds, Soft. No: Distention, Tenderness Extremities: Yes: WNL Edema: No Labs: CBC, BMP 05/14/17 05:35 05/14/17 05:35 INR, PTT INR 4.58 (0.82-1.09) H* 05/14/17 05:35 Problem List - Problems (1) Lung mass Code(s): R91.8 - OTHER NONSPECIFIC ABNORMAL FINDING OF LUNG FIELD (2) Coumadin toxicity Code(s): T45.511A - POISONING BY ANTICOAGULANTS, ACCIDENTAL, INIT (3) Respiratory failure, [id number] Code(s): J96.20 - ACUTE AND CHR RESP FAILURE, UNSP W HYPOXIA OR HYPERCAPNIA Qualifiers: Respiratory failure complication: hypoxia Qualified Code(s): J96.21 - Acute and chronic respiratory failure with hypoxia (4) Acute exacerbation of chronic obstructive pulmonary disease (COPD) Code(s): J44.1 - CHRONIC OBSTRUCTIVE PULMONARY DISEASE W (ACUTE) EXACERBATION (5) Atrial fibrillation Code(s): I48.91 - UNSPECIFIED ATRIAL FIBRILLATION Qualifiers: Atrial fibrillation type: chronic Qualified Code(s): I48.2 - Chronic atrial fibrillation (6) Hyperlipidemia Code(s): E78.5 - HYPERLIPIDEMIA, UNSPECIFIED (7) Hypertension Code(s): I10 - ESSENTIAL (PRIMARY) HYPERTENSION (8) Pneumonia Code(s): J18.9 - PNEUMONIA, UNSPECIFIED ORGANISM (9) Diastolic CHF Code(s): I50.30 - UNSPECIFIED DIASTOLIC (CONGESTIVE) HEART FAILURE Qualifiers: Heart failure chronicity: chronic Qualified Code(s): I50.32 - Chronic diastolic (congestive) heart failure Assessment/Plan (1) Respiratory failure, [id number] Assessment/Plan: -at baseline -continue prednisone 6mg day 2 -after 3 days of 60mg, decrease to 40mg -continue duonebs Code(s): J96.20 - ACUTE AND CHR RESP FAILURE, UNSP W HYPOXIA OR HYPERCAPNIA Qualifiers: Respiratory failure complication: hypoxia Qualified Code(s): J96.21 - Acute and chronic respiratory failure with hypoxia (2) Acute exacerbation of chronic obstructive pulmonary disease (COPD) Assessment/Plan: -as above -continue prednisone -continue duonebs -continue rocephin/zithromax for pneumonia, day 5 -stop zithromax today Code(s): J44.1 - CHRONIC OBSTRUCTIVE PULMONARY DISEASE W (ACUTE) EXACERBATION (3) Atrial fibrillation Assessment/Plan: -rate controlled -hold coumadin -will give second vitamin k dose Code(s): I48.91 - UNSPECIFIED ATRIAL FIBRILLATION Qualifiers: Atrial fibrillation type: chronic Qualified Code(s): I48.2 - Chronic atrial fibrillation (4) Hyperlipidemia Assessment/Plan: -continue statin Code(s): E78.5 - HYPERLIPIDEMIA, UNSPECIFIED (5) Hypertension Assessment/Plan: -controlled -continue diltiazem, toprol xl, valsartan, and hydralazine Code(s): I10 - ESSENTIAL (PRIMARY) HYPERTENSION (6) Pneumonia Assessment/Plan: -continue rocephin and zithromax day 5 -stop zithromax today -no fevers or leukocytosis -transition to oral antibiotics when ready for discharge Code(s): J18.9 - PNEUMONIA, UNSPECIFIED ORGANISM (7) Diastolic CHF Assessment/Plan: -defer starting lasix to cardiology Code(s): I50.30 - UNSPECIFIED DIASTOLIC (CONGESTIVE) HEART FAILURE Qualifiers: Heart failure chronicity: chronic Qualified Code(s): I50.32 - Chronic diastolic (congestive) heart failure (8) Lung mass -mass found on CT scan -also with pleural effusion -case d/w pulmonary -plan for thoracentesis, send for cytology -also concerning since states developed more moles and also largest mole is growing -minimal tobacco history but states was in the sun a lot throughout life -also with unintentional weight loss -concerning for malignancy, primary lung vs metastatic -consult dermatology as well for biopsy -awaiting INR correction (9) Coumadin toxicity -still elevated -will give second dose of vitamin k -recheck INR at 7pm and again tomorrow am
--- NOTE | 2017-05-14 10:46 | PN ---
Progress Note (short form) - Note Progress Note: s: . no sob cp palps dizzy. o: Vital Signs Period Temp Pulse Resp BP Sys/Wahl Pulse Ox Last 24 Hr 97.6 F-98.3 F 62-76 18-20 132-163/56-81 97-97 nad, no jvd rrr s1s2 no mrg cta bl, nl eff aaox3 no le e/c/c no diaphoresis/jaundice abd nt nd pos bs Current Medications Generic Name Dose Route Start Last Admin Trade Name Freq PRN Reason Stop Dose Admin Albuterol Sulfate 1 amp 05/09/17 18:46 05/10/17 12:55 Ventolin 0.083% Nebulizer Soln - NEB 1 amp Q4H PRN Administration SHORT OF BREATH/WHEEZING Albuterol/Ipratropium 1 amp 05/10/17 14:00 05/14/17 07:40 Duoneb - NEB Not Given RTID [facility] Ascorbic Acid 500 mg 05/10/17 10:00 05/14/17 10:03 Vitamin C - PO 500 mg DAILY [facility] Administration Atorvastatin Calcium 10 mg 05/09/17 22:00 05/13/17 23:15 Lipitor - PO 10 mg HS [facility] Administration Cholecalciferol 400 unit 05/10/17 10:00 05/14/17 10:04 Vitamin D3 - PO 400 unit DAILY [facility] Administration Cyanocobalamin 1,000 mcg 05/10/17 10:00 05/14/17 10:02 Vitamin B12 - PO 1,000 mcg DAILY [facility] Administration Digoxin 0.125 mg 05/10/17 10:00 05/14/17 09:59 Lanoxin - PO 0.125 mg DAILY [facility] Administration Diltiazem HCl 180 mg 05/10/17 10:00 05/14/17 09:58 Cardizem Cd - PO 180 mg DAILY [facility] Administration Hydralazine HCl 25 mg 05/09/17 22:00 05/14/17 09:58 Apresoline - PO 25 mg BID [facility] Administration Azithromycin 250 mg/ Dextrose 250 mls @ 250 mls/hr 05/10/17 10:00 05/14/17 10 :04 IVPB 250 mls/hr DAILY [facility] Administration Ceftriaxone Sodium 1 gm/ 50 mls @ 100 mls/hr 05/10/17 10:00 05/14/17 09:48 Dextrose IVPB 100 mls/hr DAILY [facility] Administration Metoprolol Succinate 25 mg 05/11/17 10:00 05/14/17 10:02 Toprol Xl - PO 25 mg DAILY [facility] Administration Multivitamins/Minerals/Vitamin C 1 tab 05/10/17 10:00 05/14/17 10:02 Tab-A-Vit - PO 1 tab DAILY [facility] Administration Non-Formulary Medication 1 each 05/10/17 10:00 Fluticasone/Vilanterol [Breo Ellipta 100-25 Mcg Inh] IH DAILY [facility] Oxycodone HCl 5 mg 05/09/17 18:20 05/14/17 07:52 Roxicodone - PO 5 mg BID PRN Administration PAIN LEVEL 4 - 6 Prednisone 60 mg 05/13/17 10:00 05/14/17 09:58 Deltasone - PO 60 mg DAILY [facility] Administration Pyridoxine HCl 50 mg 05/10/17 10:00 05/14/17 10:02 Vitamin B6 - PO 50 mg DAILY [facility] Administration Sertraline HCl 25 mg 05/10/17 10:00 05/14/17 10:04 Zoloft - PO 25 mg DAILY [facility] Administration Valsartan 320 mg 05/10/17 10:00 05/14/17 09:59 Diovan - PO 320 mg DAILY [facility] Administration CBC, BMP 05/14/17 05:35 05/14/17 05:35 ecg: demand v-pacing with either pac or [place] beat. lateral twi (present on priors) cxr: elevated right hemidiaphragm. minimal bibasilar pleural fluid. some congestive changes. patchy right infiltrate. questionable early left base infiltrate. echo 05/2016: tds; nl lv, nl rv size, mild marcus, mild mr, mild-mod tr, rvsp 40-50 , mod ao root dil pfts 06/2016: severe obstruction. moderate restriction. severe diffusion defect. Assessment/Plan 80 f hx afib on coumadin, htn, hld, tachy/maricruz syndrome s/p ppm, copd, pad s/p rle bypass, possible cad (equivocal MIBI), chronic sob/briones/palps likely related to anxiety, esophageal ca s/p laser treatment, here with sob. sob: -now off bipap. current presentation seems more related to copd than chf. bnp lower than priors. -cont tx copd per pmd/pulm, Infectious eval/mgm't per pmd/pulm. -see below regarding diuresis chronic diast CHF: -no signs of volume overload off diuretics. Previously on daily po lasix. afib: -Rate controlled on dilt plus low dose metopr and dig (dig level ok here) -cont AC with warfarin per inr htn: -controlled tachy/maricruz syndrome s/p ppm: - Stable, cont routine outpt checks pad s/p rle bypass: -Stable, no claudication. con't med mgm't possible cad (equivocal MIBI): -No angina, continue medical management (statin, BB, ARB...no ASA (on AC)) lung mass: -plans per pulm cardiac smith stable
--- NOTE | 2017-05-14 12:50 | PN ---
Progress Note (short form) - Note Progress Note: PULMONARY States breathing better. Less cough and wheezing. Last Vital Signs Temp Pulse Resp BP Pulse Ox 97.6 F 65 20 163/81 97 05/14/17 06:00 05/14/17 10:00 05/14/17 09:00 05/14/17 06:00 05/13/17 22:00 Gen: mildly tachypneic with speaking Heart: RRR Lung: distant breath sounds Abd: soft, nontender Ext: no edema CBC, BMP 05/14/17 05:35 05/14/17 05:35 INR, PTT INR 4.58 (0.82-1.09) H* 05/14/17 05:35 Active Medications Albuterol Sulfate (Ventolin 0.083% Nebulizer Soln -) 1 amp NEB Q4H PRN PRN Reason: SHORT OF BREATH/WHEEZING Last Admin: 05/10/17 12:55 Dose: 1 amp Albuterol/Ipratropium (Duoneb -) 1 amp NEB RTID [facility] Last Admin: 05/14/17 07:40 Dose: Not Given Ascorbic Acid (Vitamin C -) 500 mg PO DAILY [facility] Last Admin: 05/14/17 10:03 Dose: 500 mg Atorvastatin Calcium (Lipitor -) 10 mg PO HS [facility] Last Admin: 05/13/17 23:15 Dose: 10 mg Cholecalciferol (Vitamin D3 -) 400 unit PO DAILY [facility] Last Admin: 05/14/17 10:04 Dose: 400 unit Cyanocobalamin (Vitamin B12 -) 1,000 mcg PO DAILY [facility] Last Admin: 05/14/17 10:02 Dose: 1,000 mcg Digoxin (Lanoxin -) 0.125 mg PO DAILY [facility] Last Admin: 05/14/17 09:59 Dose: 0.125 mg Diltiazem HCl (Cardizem Cd -) 180 mg PO DAILY [facility] Last Admin: 05/14/17 09:58 Dose: 180 mg Hydralazine HCl (Apresoline -) 25 mg PO BID [facility] Last Admin: 05/14/17 09:58 Dose: 25 mg Ceftriaxone Sodium 1 gm/ (Dextrose) 50 mls @ 100 mls/hr IVPB DAILY [facility] Last Admin: 05/14/17 09:48 Dose: 100 mls/hr Metoprolol Succinate (Toprol Xl -) 25 mg PO DAILY [facility] Last Admin: 05/14/17 10:02 Dose: 25 mg Multivitamins/Minerals/Vitamin C (Tab-A-Vit -) 1 tab PO DAILY [facility] Last Admin: 05/14/17 10:02 Dose: 1 tab Non-Formulary Medication (Fluticasone/Vilanterol [Breo Ellipta 100-25 Mcg Inh]) 1 each IH DAILY [facility] Oxycodone HCl (Roxicodone -) 5 mg PO BID PRN PRN Reason: PAIN LEVEL 4 - 6 Last Admin: 05/14/17 07:52 Dose: 5 mg Prednisone (Deltasone -) 60 mg PO DAILY [facility] Last Admin: 05/14/17 09:58 Dose: 60 mg Pyridoxine HCl (Vitamin B6 -) 50 mg PO DAILY [facility] Last Admin: 05/14/17 10:02 Dose: 50 mg Sertraline HCl (Zoloft -) 25 mg PO DAILY [facility] Last Admin: 05/14/17 10:04 Dose: 25 mg Valsartan (Diovan -) 320 mg PO DAILY [facility] Last Admin: 05/14/17 09:59 Dose: 320 mg A/P Acute COPD Exacerbation R Hilar mass Pneumonia Atrial Fibrillation CAD PAD - prednisone taper - for thoracentesis - flex bronch if thoracentesis non-diagnostic - inhaled bronchodilators - antibiotics - O2 to keep SpO2 >90% - BiPAP as needed to assist in work of breathing - hold anticoagulation - when ready for discharge, will need to assess for home O2 Problem List - Problems (1) Acute exacerbation of chronic obstructive pulmonary disease (COPD) Code(s): J44.1 - CHRONIC OBSTRUCTIVE PULMONARY DISEASE W (ACUTE) EXACERBATION (2) Pneumonia Code(s): J18.9 - PNEUMONIA, UNSPECIFIED ORGANISM (3) Atrial fibrillation Code(s): I48.91 - UNSPECIFIED ATRIAL FIBRILLATION Qualifiers: Atrial fibrillation type: chronic Qualified Code(s): I48.2 - Chronic atrial fibrillation (4) PAD (peripheral artery disease) Code(s): I73.9 - PERIPHERAL VASCULAR DISEASE, UNSPECIFIED
[2017-05-14] MEDS: BUDESONIDE/FORMETEROL FUMARATE 160/4.5 mcg INHALER IH SCH ×2 (14:34→21:23)
[2017-05-14] MEDS: ATORVASTATIN CA 10 MG TABLET (FP) PO SCH (21:20)
[2017-05-14 22:02] LABS: INR 3.48 (0.82-1.09); PROTHROMBIN TIME (PATIENT) 39.3 SEC (9.98-11.88)
[2017-05-15 06:56] LABS: EOS % 0.2 % (0-4.5); HEMATOCRIT 36.8 % (32.4-45.2); HEMOGLOBIN 12.1 GM/dL (10.7-15.3); LYMPH % 8.9 % (8-40); MCH 30.1 pg (25.7-33.7); MCHC 32.9 g/dl (32.0-36.0); MEAN CELL VOLUME 91.3 fl (80-96); MEAN PLT VOLUME 10.1 fl (7.5-11.1); MONO % 11.6 % (3.8-10.2); NEUT % 79.3 % (42.8-82.8); PLATELET COUNT 240 K/MM3 (134-434); RBC 4.03 M/mm3 (3.60-5.2); RDW 16.2 % (11.6-15.6); WHITE BLOOD COUNT 11.7 K/mm3 (4.0-10.0)
[2017-05-15 07:02] LABS: INR 3.09 (0.82-1.09); PROTHROMBIN TIME (PATIENT) 34.9 SEC (9.98-11.88)
[2017-05-15 07:10] LABS: ANION GAP 7 (8-16); BLOOD UREA NITROGEN 32 mg/dL (7-18); CALCIUM 8.3 mg/dL (8.5-10.1); CHLORIDE 105 mmol/L (98-107); CO2 31 mmol/L (21-32); GLUCOSE,RANDOM 75 mg/dL (74-106); MAGNESIUM 2.1 mg/dL (1.8-2.4); POTASSIUM 4.3 mmol/L (3.5-5.1); SODIUM 143 mmol/L (136-145)
[2017-05-15 07:11] LABS: PHOSPHOROUS 3.1 mg/dL (2.5-4.9)
[2017-05-15] MEDS: ALBUTEROL SO4 2.5/IPRATROPIUM 0.5 INH SOL 3 ML VIAL.NEB. NEB SCH ×3 (08:01→20:25)
[2017-05-15] MEDS ORDERED: PT OWN MED DRAWER 7, Y5N ONE (09:14)
[2017-05-15] MEDS ORDERED: DEXTROSE 5%-WATER - 50 ML IVPB ONE (09:15)
[2017-05-15] MEDS ORDERED: cefTRIAXone SODIUM 1 GM VIAL ONE (09:15)
[2017-05-15] MEDS: BUDESONIDE/FORMETEROL FUMARATE 160/4.5 mcg INHALER IH SCH ×2 (09:25→21:10)
[2017-05-15] MEDS: SERTRALINE HCL 25 MG TABLET (FP) PO SCH (09:26)
[2017-05-15] MEDS: CEFTRIAXONE 1 GM in DEXTROSE 5%-WATER - 50 ML IVPB SCH (09:26)
[2017-05-15] MEDS: PYRIDOXINE HCL (B-6) 50 MG TABLET (FP) PO SCH (09:26)
[2017-05-15] MEDS: DIGOXIN 0.125 MG TABLET (FP) PO SCH (09:26)
[2017-05-15] MEDS: metoPROLOL SUCCINATE 25 MG TAB.SR.24H (FP) PO SCH (09:27)
[2017-05-15] MEDS: VALSARTAN 160 MG TABLET (UD) PO SCH (09:27)
[2017-05-15] MEDS: CYANOCOBALAMIN 1,000 MCG TABLET (FP) PO SCH (09:27)
[2017-05-15] MEDS: MULTIVITAMINS (DAILY MVI) TABLET (FP) PO SCH (09:27)
[2017-05-15] MEDS: hydrALAZINE HCL 25 MG TABLET (FP) PO SCH ×2 (09:27→21:11)
[2017-05-15] MEDS: predniSONE 20 MG TABLET (UD) PO SCH (09:28)
[2017-05-15] MEDS: CHOLECALCIFEROL (VITAMIN D3) 400 UNIT TABLET (FP) PO SCH (09:28)
[2017-05-15] MEDS: ASCORBIC ACID 500 MG TABLET (FP) PO SCH (09:28)
--- NOTE | 2017-05-15 10:55 | PN ---
Progress Note, Physician History of Present Illness: pulmonary alert,oob-chair,comfortable,-resp distress - Current Medication List Current Medications: Active Medications Albuterol Sulfate (Ventolin 0.083% Nebulizer Soln -) 1 amp NEB Q4H PRN PRN Reason: SHORT OF BREATH/WHEEZING Last Admin: 05/10/17 12:55 Dose: 1 amp Albuterol/Ipratropium (Duoneb -) 1 amp NEB [facility]ID [facility] Last Admin: 05/15/17 08:01 Dose: Not Given Ascorbic Acid (Vitamin C -) 500 mg PO DAILY [facility] Last Admin: 05/15/17 09:28 Dose: 500 mg Atorvastatin Calcium (Lipitor -) 10 mg PO HS [facility] Last Admin: 05/14/17 21:20 Dose: 10 mg Budesonide/Formoterol Fumarate (Symbicort 160/4.5mcg -) 2 puff IH BID [facility] Last Admin: 05/15/17 09:25 Dose: 2 puff Cholecalciferol (Vitamin D3 -) 400 unit PO DAILY [facility] Last Admin: 05/15/17 09:28 Dose: 400 unit Cyanocobalamin (Vitamin B12 -) 1,000 mcg PO DAILY [facility] Last Admin: 05/15/17 09:27 Dose: 1,000 mcg Digoxin (Lanoxin -) 0.125 mg PO DAILY [facility] Last Admin: 05/15/17 09:26 Dose: 0.125 mg Diltiazem HCl (Cardizem Cd -) 180 mg PO DAILY [facility] Last Admin: 05/15/17 09:27 Dose: 180 mg Hydralazine HCl (Apresoline -) 25 mg PO BID [facility] Last Admin: 05/15/17 09:27 Dose: 25 mg Ceftriaxone Sodium 1 gm/ (Dextrose) 50 mls @ 100 mls/hr IVPB [facility]ILY [facility] Last Admin: 05/15/17 09:26 Dose: 100 mls/hr Metoprolol Succinate (Toprol Xl -) 25 mg PO DAILY [facility] Last Admin: 05/15/17 09:27 Dose: 25 mg Multivitamins/Minerals/Vitamin C (Tab-A-Vit -) 1 tab PO DAILY [facility] Last Admin: 05/15/17 09:27 Dose: 1 tab Oxycodone HCl (Roxicodone -) 5 mg PO BID PRN PRN Reason: PAIN LEVEL 4 - 6 Last Admin: 05/14/17 21:20 Dose: 5 mg Prednisone (Deltasone -) 60 mg PO DAILY [facility] Last Admin: 05/15/17 09:28 Dose: 60 mg Pyridoxine HCl (Vitamin B6 -) 50 mg PO DAILY [facility] Last Admin: 05/15/17 09:26 Dose: 50 mg Sertraline HCl (Zoloft -) 25 mg PO DAILY [facility] Last Admin: 05/15/17 09:26 Dose: 25 mg Valsartan (Diovan -) 320 mg PO DAILY [facility] Last Admin: 05/15/17 09:27 Dose: 320 mg - Objective Vital Signs: Vital Signs Temperature 97.8 F 05/15/17 09:00 Pulse Rate 74 05/15/17 09:26 Respiratory Rate 20 05/15/17 09:00 Blood Pressure 130/67 05/15/17 09:00 O2 Sat by Pulse Oximetry (%) 96 05/15/17 09:00 Constitutional: Yes: Well Nourished, Calm Eyes: Yes: WNL HENT: Yes: WNL Neck: Yes: WNL Cardiovascular: Yes: Pulse Irregular, S1, S2 Respiratory: Yes: Diminished Gastrointestinal: Yes: Normal Bowel Sounds, Soft Extremities: Yes: WNL Edema: No Labs: CBC, BMP 05/15/17 06:15 05/15/17 06:15 INR, PTT INR 3.09 (0.82-1.09) H 05/15/17 06:15 Assessment/Plan Problem List - Problems (1) Acute exacerbation of chronic obstructive pulmonary disease (COPD) Code(s): J44.1 - CHRONIC OBSTRUCTIVE PULMONARY DISEASE W (ACUTE) EXACERBATION (2) Pneumonia Code(s): J18.9 - PNEUMONIA, UNSPECIFIED ORGANISM (3) Atrial fibrillation Code(s): I48.91 - UNSPECIFIED ATRIAL FIBRILLATION (4) PAD (peripheral artery disease) Code(s): I73.9 - PERIPHERAL VASCULAR DISEASE, UNSPECIFIED Assessment/Plan Acute COPD Exacerbation R hilar mass Pneumonia Atrial Fibrillation CAD PAD - prednisone - thoracentesis when inr normal - flex bronch if thoracentesis non-diagnostic - inhaled bronchodilators - antibiotics - O2 to keep SpO2 >90% - BiPAP as needed to assist in work of breathing - hold ac - o2 sat rest and post exercise on ra DR GRANDE
--- NOTE | 2017-05-15 11:32 | PN ---
Progress Note, Physician Chief Complaint: Ms Moncada is without complaint. Denies cp, sob, n/v. Says she is feeling good. - Current Medication List Current Medications: Active Medications Albuterol Sulfate (Ventolin 0.083% Nebulizer Soln -) 1 amp NEB Q4H PRN PRN Reason: SHORT OF BREATH/WHEEZING Last Admin: 05/10/17 12:55 Dose: 1 amp Albuterol/Ipratropium (Duoneb -) 1 amp NEB RTID [facility] Last Admin: 05/15/17 08:01 Dose: Not Given Ascorbic Acid (Vitamin C -) 500 mg PO DAILY [facility] Last Admin: 05/15/17 09:28 Dose: 500 mg Atorvastatin Calcium (Lipitor -) 10 mg PO HS [facility] Last Admin: 05/14/17 21:20 Dose: 10 mg Budesonide/Formoterol Fumarate (Symbicort 160/4.5mcg -) 2 puff IH BID [facility] Last Admin: 05/15/17 09:25 Dose: 2 puff Cholecalciferol (Vitamin D3 -) 400 unit PO DAILY [facility] Last Admin: 05/15/17 09:28 Dose: 400 unit Cyanocobalamin (Vitamin B12 -) 1,000 mcg PO DAILY [facility] Last Admin: 05/15/17 09:27 Dose: 1,000 mcg Digoxin (Lanoxin -) 0.125 mg PO DAILY [facility] Last Admin: 05/15/17 09:26 Dose: 0.125 mg Diltiazem HCl (Cardizem Cd -) 180 mg PO DAILY [facility] Last Admin: 05/15/17 09:27 Dose: 180 mg Hydralazine HCl (Apresoline -) 25 mg PO BID [facility] Last Admin: 05/15/17 09:27 Dose: 25 mg Ceftriaxone Sodium 1 gm/ (Dextrose) 50 mls @ 100 mls/hr IVPB DAILY [facility] Last Admin: 05/15/17 09:26 Dose: 100 mls/hr Metoprolol Succinate (Toprol Xl -) 25 mg PO DAILY [facility] Last Admin: 05/15/17 09:27 Dose: 25 mg Multivitamins/Minerals/Vitamin C (Tab-A-Vit -) 1 tab PO DAILY [facility] Last Admin: 05/15/17 09:27 Dose: 1 tab Oxycodone HCl (Roxicodone -) 5 mg PO BID PRN PRN Reason: PAIN LEVEL 4 - 6 Last Admin: 05/14/17 21:20 Dose: 5 mg Prednisone (Deltasone -) 40 mg PO DAILY [facility] Pyridoxine HCl (Vitamin B6 -) 50 mg PO DAILY [facility] Last Admin: 05/15/17 09:26 Dose: 50 mg Sertraline HCl (Zoloft -) 25 mg PO DAILY [facility] Last Admin: 05/15/17 09:26 Dose: 25 mg Valsartan (Diovan -) 320 mg PO DAILY [facility] Last Admin: 05/15/17 09:27 Dose: 320 mg - Objective Vital Signs: Vital Signs Temperature 36.6 C 05/15/17 09:00 Pulse Rate 74 05/15/17 09:26 Respiratory Rate 20 05/15/17 09:00 Blood Pressure 130/67 05/15/17 09:00 O2 Sat by Pulse Oximetry (%) 96 05/15/17 09:00 Constitutional: Yes: Well Nourished, No Distress, Calm Cardiovascular: Yes: Pulse Irregular. No: Tachycardia, Gallop, Murmur, Rub Respiratory: Yes: Regular, CTA Bilaterally, On Nasal O2. No: Rales, Rhonchi, Wheezes Gastrointestinal: Yes: Normal Bowel Sounds, Soft. No: Distention, Tenderness Extremities: Yes: WNL Edema: No Labs: CBC, BMP 05/15/17 06:15 05/15/17 06:15 INR, PTT INR 3.09 (0.82-1.09) H 05/15/17 06:15 Problem List - Problems (1) Lung mass Code(s): R91.8 - OTHER NONSPECIFIC ABNORMAL FINDING OF LUNG FIELD (2) Coumadin toxicity Code(s): T45.511A - POISONING BY ANTICOAGULANTS, ACCIDENTAL, INIT (3) Respiratory failure, [id number] Code(s): J96.20 - ACUTE AND CHR RESP FAILURE, UNSP W HYPOXIA OR HYPERCAPNIA Qualifiers: Respiratory failure complication: hypoxia Qualified Code(s): J96.21 - Acute and chronic respiratory failure with hypoxia (4) Acute exacerbation of chronic obstructive pulmonary disease (COPD) Code(s): J44.1 - CHRONIC OBSTRUCTIVE PULMONARY DISEASE W (ACUTE) EXACERBATION (5) Atrial fibrillation Code(s): I48.91 - UNSPECIFIED ATRIAL FIBRILLATION Qualifiers: Atrial fibrillation type: chronic Qualified Code(s): I48.2 - Chronic atrial fibrillation (6) Hyperlipidemia Code(s): E78.5 - HYPERLIPIDEMIA, UNSPECIFIED (7) Hypertension Code(s): I10 - ESSENTIAL (PRIMARY) HYPERTENSION (8) Pneumonia Code(s): J18.9 - PNEUMONIA, UNSPECIFIED ORGANISM (9) Diastolic CHF Code(s): I50.30 - UNSPECIFIED DIASTOLIC (CONGESTIVE) HEART FAILURE Qualifiers: Heart failure chronicity: chronic Qualified Code(s): I50.32 - Chronic diastolic (congestive) heart failure Assessment/Plan (1) Respiratory failure, [id number] Assessment/Plan: -at baseline -prednisone 60mg day 3 -decrease to 40mg tomorrow to continue taper -continue duonebs Code(s): J96.20 - ACUTE AND CHR RESP FAILURE, UNSP W HYPOXIA OR HYPERCAPNIA Qualifiers: Respiratory failure complication: hypoxia Qualified Code(s): J96.21 - Acute and chronic respiratory failure with hypoxia (2) Acute exacerbation of chronic obstructive pulmonary disease (COPD) Assessment/Plan: -as above -continue prednisone -continue duonebs -full course zithromax -rocephin day 6/7 Code(s): J44.1 - CHRONIC OBSTRUCTIVE PULMONARY DISEASE W (ACUTE) EXACERBATION (3) Atrial fibrillation Assessment/Plan: -rate controlled -hold coumadin -monitor INR Code(s): I48.91 - UNSPECIFIED ATRIAL FIBRILLATION Qualifiers: Atrial fibrillation type: chronic Qualified Code(s): I48.2 - Chronic atrial fibrillation (4) Hyperlipidemia Assessment/Plan: -continue statin Code(s): E78.5 - HYPERLIPIDEMIA, UNSPECIFIED (5) Hypertension Assessment/Plan: -controlled -continue diltiazem, toprol xl, valsartan, and hydralazine Code(s): I10 - ESSENTIAL (PRIMARY) HYPERTENSION (6) Pneumonia Assessment/Plan: -full course of zithromax -rocephin day 6/7 Code(s): J18.9 - PNEUMONIA, UNSPECIFIED ORGANISM (7) Diastolic CHF Assessment/Plan: -defer starting lasix to cardiology Code(s): I50.30 - UNSPECIFIED DIASTOLIC (CONGESTIVE) HEART FAILURE Qualifiers: Heart failure chronicity: chronic Qualified Code(s): I50.32 - Chronic diastolic (congestive) heart failure (8) Lung mass -mass found on CT scan -also with pleural effusion -case d/w pulmonary -plan for thoracentesis on Thursday once INR appropriate, send for cytology -also concerning since states developed more moles and also largest mole is growing -minimal tobacco history but states was in the sun a lot throughout life -also with unintentional weight loss -concerning for malignancy, primary lung vs metastatic -consult dermatology as well for biopsy (9) Coumadin toxicity -still elevated -monitor, allow to trend down over weekend -if still elevated on Thursday, give another dose of Vitamin k
--- NOTE | 2017-05-15 11:38 | PN ---
Progress Note (short form) - Note Progress Note: s: no sob cp palps dizzy. o: Vital Signs Period Temp Pulse Resp BP Sys/Wahl Pulse Ox Last 24 Hr 97.2 F-98.3 F 61-74 18-20 123-153/46-67 96-99 nad, no jvd rrr s1s2 no mrg cta bl, nl eff aaox3 no le e/c/c no diaphoresis/jaundice abd nt nd pos bs Current Medications Generic Name Dose Route Start Last Admin Trade Name Freq PRN Reason Stop Dose Admin Albuterol Sulfate 1 amp 05/09/17 18:46 05/10/17 12:55 Ventolin 0.083% Nebulizer Soln - NEB 1 amp Q4H PRN Administration SHORT OF BREATH/WHEEZING Albuterol/Ipratropium 1 amp 05/10/17 14:00 05/15/17 08:01 Duoneb - NEB Not Given RTID [facility] Ascorbic Acid 500 mg 05/10/17 10:00 05/15/17 09:28 Vitamin C - PO 500 mg DAILY [facility] Administration Atorvastatin Calcium 10 mg 05/09/17 22:00 05/14/17 21:20 Lipitor - PO 10 mg HS [facility] Administration Budesonide/Formoterol Fumarate 2 puff 05/14/17 13:30 05/15/17 09:25 Symbicort 160/4.5mcg - IH 2 puff BID [facility] Administration Cholecalciferol 400 unit 05/10/17 10:00 05/15/17 09:28 Vitamin D3 - PO 400 unit DAILY [facility] Administration Cyanocobalamin 1,000 mcg 05/10/17 10:00 05/15/17 09:27 Vitamin B12 - PO 1,000 mcg DAILY [facility] Administration Digoxin 0.125 mg 05/10/17 10:00 05/15/17 09:26 Lanoxin - PO 0.125 mg DAILY [facility] Administration Diltiazem HCl 180 mg 05/10/17 10:00 05/15/17 09:27 Cardizem Cd - PO 180 mg DAILY [facility] Administration Hydralazine HCl 25 mg 05/09/17 22:00 05/15/17 09:27 Apresoline - PO 25 mg BID [facility] Administration Ceftriaxone Sodium 1 gm/ 50 mls @ 100 mls/hr 05/10/17 10:00 04/06/18 09:26 Dextrose IVPB 100 mls/hr DAILY [facility] Administration Metoprolol Succinate 25 mg 05/11/17 10:00 05/15/17 09:27 Toprol Xl - PO 25 mg DAILY [facility] Administration Multivitamins/Minerals/Vitamin C 1 tab 05/10/17 10:00 05/15/17 09:27 Tab-A-Vit - PO 1 tab DAILY [facility] Administration Oxycodone HCl 5 mg 05/09/17 18:20 05/14/17 21:20 Roxicodone - PO 5 mg BID PRN Administration PAIN LEVEL 4 - 6 Prednisone 40 mg 05/16/17 10:00 Deltasone - PO DAILY [facility] Pyridoxine HCl 50 mg 05/10/17 10:00 05/15/17 09:26 Vitamin B6 - PO 50 mg DAILY [facility] Administration Sertraline HCl 25 mg 05/10/17 10:00 05/15/17 09:26 Zoloft - PO 25 mg DAILY [facility] Administration Valsartan 320 mg 05/10/17 10:00 05/15/17 09:27 Diovan - PO 320 mg DAILY [facility] Administration CBC, BMP 05/15/17 06:15 05/15/17 06:15 ecg: demand v-pacing with either pac or [place] beat. lateral twi (present on priors) cxr: elevated right hemidiaphragm. minimal bibasilar pleural fluid. some congestive changes. patchy right infiltrate. questionable early left base infiltrate. echo 05/2016: tds; nl lv, nl rv size, mild marcus, mild mr, mild-mod tr, rvsp 40-50 , mod ao root dil pfts 06/2016: severe obstruction. moderate restriction. severe diffusion defect. Assessment/Plan 80 f hx afib on coumadin, htn, hld, tachy/maricruz syndrome s/p ppm, copd, pad s/p rle bypass, possible cad (equivocal MIBI), chronic sob/briones/palps likely related to anxiety, esophageal ca s/p laser treatment, here with sob. sob: -now off bipap. current presentation seems more related to copd than chf. bnp lower than priors. -cont tx copd per pmd/pulm, Infectious eval/mgm't per pmd/pulm. -see below regarding diuresis chronic diast CHF: -no signs of volume overload off diuretics. Previously on daily po lasix. afib: -Rate controlled on dilt plus low dose metopr and dig (dig level ok here) -cont AC with warfarin per inr htn: -controlled tachy/maricruz syndrome s/p ppm: - Stable, cont routine outpt checks pad s/p rle bypass: -Stable, no claudication. con't med mgm't possible cad (equivocal MIBI): -No angina, continue medical management (statin, BB, ARB...no ASA (on AC)) lung mass: -plans per pulm -no cardiac contraindications to planned thoracentesis, ok to hold ac temporarily cardiac smith stable
[2017-05-15] MEDS: ATORVASTATIN CA 10 MG TABLET (FP) PO SCH (21:11)
[2017-05-15] MEDS: oxyCODONE HCL 5 MG TABLET PO PRN (21:11)
[2017-05-16 07:19] LABS: HEMATOCRIT 36.5 % (32.4-45.2); HEMOGLOBIN 12.1 GM/dL (10.7-15.3); MCH 30.2 pg (25.7-33.7); MCHC 33.1 g/dl (32.0-36.0); MEAN CELL VOLUME 91.3 fl (80-96); MEAN PLT VOLUME 9.8 fl (7.5-11.1); PLATELET COUNT 236 K/MM3 (134-434)
[2017-05-16] MEDS: oxyCODONE HCL 5 MG TABLET PO PRN ×2 (07:39→22:33)
[2017-05-16] MEDS: ALBUTEROL SO4 2.5/IPRATROPIUM 0.5 INH SOL 3 ML VIAL.NEB. NEB SCH ×3 (07:52→20:54)
[2017-05-16 08:07] LABS: CHLORIDE 104 mmol/L (98-107); POTASSIUM 4.1 mmol/L (3.5-5.1); SODIUM 141 mmol/L (136-145)
[2017-05-16 08:23] LABS: INR 1.91 (0.82-1.09); PROTHROMBIN TIME (PATIENT) 21.6 SEC (9.98-11.88)
[2017-05-16 08:49] LABS: ANION GAP 8 (8-16); BLOOD UREA NITROGEN 31 mg/dL (7-18); CALCIUM 8.4 mg/dL (8.5-10.1); CO2 29 mmol/L (21-32); GLUCOSE,RANDOM 68 mg/dL (74-106); MAGNESIUM 1.9 mg/dL (1.8-2.4); PHOSPHOROUS 3.4 mg/dL (2.5-4.9)
[2017-05-16] MEDS ORDERED: PT OWN MED DRAWER 7, Y5N ONE (09:16)
[2017-05-16] MEDS ORDERED: cefTRIAXone SODIUM 1 GM VIAL ONE (09:17)
[2017-05-16] MEDS ORDERED: DEXTROSE 5%-WATER - 50 ML IVPB ONE (09:17)
--- NOTE | 2017-05-16 09:19 | PN ---
Physical Exam: SUBJECTIVE: Patient seen and examined. slept well, no complaints OBJECTIVE: Vital Signs Period Temp Pulse Resp BP Sys/Wahl Pulse Ox Last 24 Hr 97.5 F-98.8 F 64-77 20-20 124-165/55-82 94-97 GENERAL: The patient is awake, alert, and fully oriented, in no acute distress. LUNGS: Breath sounds equal, clear to auscultation bilaterally, no wheezes, no crackles, no accessory muscle use. HEART: Regular rate and rhythm, S1, S2 without murmur, rub or gallop. ABDOMEN: Soft, nontender, nondistended, normoactive bowel sounds, no guarding, no rebound, no hepatosplenomegaly, no masses. EXTREMITIES: 2+ pulses, warm, well-perfused, no edema. PSYCH: Normal mood, normal affect. Laboratory Results - last 24 hr 05/16/17 05/16/17 05/16/17 05:00 05:00 05:00 WBC 14.0 H RBC 4.00 Hgb 12.1 Hct 36.5 MCV 91.3 MCH 30.2 MCHC 33.1 RDW 16.0 H Plt Count 236 MPV 9.8 Neutrophils % Television Schedule Coordinator Lymphocytes % Television Schedule Coordinator Monocytes % Television Schedule Coordinator Eosinophils % Television Schedule Coordinator Basophils % Television Schedule Coordinator PT with INR 21.60 H INR 1.91 H D Sodium 141 Potassium 4.1 Chloride 104 Carbon Dioxide 29 Anion Gap 8 BUN 31 H Creatinine 1.0 Random Glucose 68 L Calcium 8.4 L Phosphorus 3.4 Magnesium 1.9 Active Medications Generic Name Dose Route Start Last Admin Trade Name Freq PRN Reason Stop Dose Admin Albuterol Sulfate 1 amp 05/09/17 18:46 05/10/17 12:55 Ventolin 0.083% Nebulizer Soln - NEB 1 amp Q4H PRN Administration SHORT OF BREATH/WHEEZING Albuterol/Ipratropium 1 amp 05/10/17 14:00 05/16/17 07:52 Duoneb - NEB 1 amp RTID [facility] Administration Ascorbic Acid 500 mg 05/10/17 10:00 05/15/17 09:28 Vitamin C - PO 500 mg DAILY [facility] Administration Atorvastatin Calcium 10 mg 05/09/17 22:00 05/15/17 21:11 Lipitor - PO 10 mg HS [facility] Administration Budesonide/Formoterol Fumarate 2 puff 05/14/17 13:30 05/15/17 21:10 Symbicort 160/4.5mcg - IH 2 puff BID [facility] Administration Cholecalciferol 400 unit 05/10/17 10:00 05/15/17 09:28 Vitamin D3 - PO 400 unit DAILY [facility] Administration Cyanocobalamin 1,000 mcg 05/10/17 10:00 05/15/17 09:27 Vitamin B12 - PO 1,000 mcg DAILY [facility] Administration Digoxin 0.125 mg 05/10/17 10:00 05/15/17 09:26 Lanoxin - PO 0.125 mg DAILY [facility] Administration Diltiazem HCl 180 mg 05/10/17 10:00 05/15/17 09:27 Cardizem Cd - PO 180 mg DAILY [facility] Administration Hydralazine HCl 25 mg 05/09/17 22:00 05/15/17 21:11 Apresoline - PO 25 mg BID [facility] Administration Ceftriaxone Sodium 1 gm/ 50 mls @ 100 mls/hr 05/10/17 10:00 05/15/17 09:26 Dextrose IVPB 100 mls/hr DAILY [facility] Administration Metoprolol Succinate 25 mg 05/11/17 10:00 05/15/17 09:27 Toprol Xl - PO 25 mg DAILY [facility] Administration Multivitamins/Minerals/Vitamin C 1 tab 05/10/17 10:00 05/15/17 09:27 Tab-A-Vit - PO 1 tab DAILY [facility] Administration Oxycodone HCl 5 mg 05/09/17 18:20 05/16/17 07:39 Roxicodone - PO 5 mg BID PRN Administration PAIN LEVEL 4 - 6 Prednisone 40 mg 05/16/17 10:00 Deltasone - PO DAILY [facility] Pyridoxine HCl 50 mg 05/10/17 10:00 05/15/17 09:26 Vitamin B6 - PO 50 mg DAILY [facility] Administration Sertraline HCl 25 mg 05/10/17 10:00 05/15/17 09:26 Zoloft - PO 25 mg DAILY [facility] Administration Valsartan 320 mg 05/10/17 10:00 05/15/17 09:27 Diovan - PO 320 mg DAILY [facility] Administration Tele reviewed: occasional V pacing, no events ASSESSMENT/PLAN: Lung mass with layering pleural effusion- plan for thoracentesis thursday AFib - holding coumadin for thoracentesis thursday, INR now subtherapeutic, rate control with Diltiazem COPD Exacerbation now improving -continue Prednisone 40mg , Duonebs, Symbicort Moles on back - sees outpatient construction equipment mechanic helper Dr. Dowell PNA - completed Azithromycin, ceftriaxone diastolic CHF - on Toprol, valsartan, hydralazine, digoxin, lipitor Visit type - Emergency Visit Emergency Visit: Yes ED Registration Date: 05/09/17 Care time: The patient presented to the Emergency Department on the above date and was hospitalized for further evaluation of their emergent condition. - New Patient This patient is new to me today: Yes Date on this admission: 05/16/17 - Critical Care Critical Care patient: No
[2017-05-16] MEDS: ASCORBIC ACID 500 MG TABLET (FP) PO SCH (09:31)
[2017-05-16] MEDS: MULTIVITAMINS (DAILY MVI) TABLET (FP) PO SCH (09:32)
[2017-05-16] MEDS: PYRIDOXINE HCL (B-6) 50 MG TABLET (FP) PO SCH (09:32)
[2017-05-16] MEDS: SERTRALINE HCL 25 MG TABLET (FP) PO SCH (09:32)
[2017-05-16] MEDS: hydrALAZINE HCL 25 MG TABLET (FP) PO SCH ×2 (09:32→22:30)
[2017-05-16] MEDS: CYANOCOBALAMIN 1,000 MCG TABLET (FP) PO SCH (09:32)
[2017-05-16] MEDS: CHOLECALCIFEROL (VITAMIN D3) 400 UNIT TABLET (FP) PO SCH (09:32)
[2017-05-16] MEDS: VALSARTAN 160 MG TABLET (UD) PO SCH (09:32)
[2017-05-16] MEDS: CEFTRIAXONE 1 GM in DEXTROSE 5%-WATER - 50 ML IVPB SCH (09:33)
[2017-05-16] MEDS: metoPROLOL SUCCINATE 25 MG TAB.SR.24H (FP) PO SCH (09:33)
[2017-05-16] MEDS: predniSONE 20 MG TABLET (UD) PO SCH (09:33)
[2017-05-16] MEDS: DIGOXIN 0.125 MG TABLET (FP) PO SCH (09:36)
[2017-05-16] MEDS: BUDESONIDE/FORMETEROL FUMARATE 160/4.5 mcg INHALER IH SCH ×2 (09:37→22:31)
--- NOTE | 2017-05-16 09:39 | PN ---
Progress Note, Physician History of Present Illness: PULMONARY ALERT,NAD,-SOB,-CP,-COUGH - Current Medication List Current Medications: Active Medications Albuterol Sulfate (Ventolin 0.083% Nebulizer Soln -) 1 amp NEB Q4H PRN PRN Reason: SHORT OF BREATH/WHEEZING Last Admin: 05/10/17 12:55 Dose: 1 amp Albuterol/Ipratropium (Duoneb -) 1 amp NEB RTID [facility] Last Admin: 05/16/17 07:52 Dose: 1 amp Ascorbic Acid (Vitamin C -) 500 mg PO DAILY [facility] Last Admin: 05/15/17 09:28 Dose: 500 mg Atorvastatin Calcium (Lipitor -) 10 mg PO HS [facility] Last Admin: 05/15/17 21:11 Dose: 10 mg Budesonide/Formoterol Fumarate (Symbicort 160/4.5mcg -) 2 puff IH BID [facility] Last Admin: 05/15/17 21:10 Dose: 2 puff Cholecalciferol (Vitamin D3 -) 400 unit PO DAILY [facility] Last Admin: 05/15/17 09:28 Dose: 400 unit Cyanocobalamin (Vitamin B12 -) 1,000 mcg PO DAILY [facility] Last Admin: 05/15/17 09:27 Dose: 1,000 mcg Digoxin (Lanoxin -) 0.125 mg PO DAILY [facility] Last Admin: 05/15/17 09:26 Dose: 0.125 mg Diltiazem HCl (Cardizem Cd -) 180 mg PO DAILY [facility] Last Admin: 05/15/17 09:27 Dose: 180 mg Hydralazine HCl (Apresoline -) 25 mg PO BID [facility] Last Admin: 05/15/17 21:11 Dose: 25 mg Ceftriaxone Sodium 1 gm/ (Dextrose) 50 mls @ 100 mls/hr IVPB DAILY [facility] Last Admin: 05/15/17 09:26 Dose: 100 mls/hr Metoprolol Succinate (Toprol Xl -) 25 mg PO DAILY [facility] Last Admin: 05/15/17 09:27 Dose: 25 mg Multivitamins/Minerals/Vitamin C (Tab-A-Vit -) 1 tab PO DAILY [facility] Last Admin: 05/15/17 09:27 Dose: 1 tab Oxycodone HCl (Roxicodone -) 5 mg PO BID PRN PRN Reason: PAIN LEVEL 4 - 6 Last Admin: 05/16/17 07:39 Dose: 5 mg Prednisone (Deltasone -) 40 mg PO DAILY [facility] Pyridoxine HCl (Vitamin B6 -) 50 mg PO DAILY [facility] Last Admin: 05/15/17 09:26 Dose: 50 mg Sertraline HCl (Zoloft -) 25 mg PO DAILY [facility] Last Admin: 05/15/17 09:26 Dose: 25 mg Valsartan (Diovan -) 320 mg PO DAILY [facility] Last Admin: 05/15/17 09:27 Dose: 320 mg - Objective Vital Signs: Vital Signs Temperature 98.5 F 05/16/17 08:46 Pulse Rate 69 05/16/17 08:46 Respiratory Rate 20 05/16/17 08:46 Blood Pressure 165/82 05/16/17 08:46 O2 Sat by Pulse Oximetry (%) 97 05/16/17 02:10 Constitutional: Yes: Well Nourished, Calm Eyes: Yes: WNL HENT: Yes: WNL Neck: Yes: WNL Cardiovascular: Yes: Regular Rate and Rhythm, S1, S2 Respiratory: Yes: Diminished Gastrointestinal: Yes: Normal Bowel Sounds, Soft Extremities: Yes: WNL Edema: No Labs: CBC, BMP 05/16/17 05:00 05/16/17 05:00 INR, PTT INR 1.91 (0.82-1.09) H D 05/16/17 05:00 Assessment/Plan Problem List - Problems (1) Acute exacerbation of chronic obstructive pulmonary disease (COPD) Code(s): J44.1 - CHRONIC OBSTRUCTIVE PULMONARY DISEASE W (ACUTE) EXACERBATION (2) Pneumonia Code(s): J18.9 - PNEUMONIA, UNSPECIFIED ORGANISM (3) Atrial fibrillation Code(s): I48.91 - UNSPECIFIED ATRIAL FIBRILLATION (4) PAD (peripheral artery disease) Code(s): I73.9 - PERIPHERAL VASCULAR DISEASE, UNSPECIFIED Assessment/Plan Acute COPD Exacerbation R hilar mass Pneumonia Atrial Fibrillation CAD PAD - prednisone - thoracentesis when inr normal - flex bronch if thoracentesis non-diagnostic - inhaled bronchodilators - antibiotics - O2 to keep SpO2 >90% - BiPAP as needed to assist in work of breathing - o2 sat rest and post exercise on ra DR GRANDE
[2017-05-16 10:04] LABS: PLATELET ESTIMATE NORMAL
--- NOTE | 2017-05-16 16:55 | PN ---
Progress Note (short form) - Note Progress Note: CC: sob s: no sob cp palps dizzy. o: Current Medications Albuterol Sulfate (Ventolin 0.083% Nebulizer Soln -) 1 amp NEB Q4H PRN PRN Reason: SHORT OF BREATH/WHEEZING Last Admin: 05/10/17 12:55 Dose: 1 amp Albuterol/Ipratropium (Duoneb -) 1 amp NEB RTID [facility] Last Admin: 05/16/17 15:00 Dose: 1 amp Ascorbic Acid (Vitamin C -) 500 mg PO DAILY [facility] Last Admin: 05/16/17 09:31 Dose: 500 mg Atorvastatin Calcium (Lipitor -) 10 mg PO HS [facility] Last Admin: 05/15/17 21:11 Dose: 10 mg Budesonide/Formoterol Fumarate (Symbicort 160/4.5mcg -) 2 puff IH BID [facility] Last Admin: 05/16/17 09:37 Dose: 2 puff Cholecalciferol (Vitamin D3 -) 400 unit PO DAILY [facility] Last Admin: 05/16/17 09:32 Dose: 400 unit Cyanocobalamin (Vitamin B12 -) 1,000 mcg PO DAILY [facility] Last Admin: 05/16/17 09:32 Dose: 1,000 mcg Digoxin (Lanoxin -) 0.125 mg PO DAILY [facility] Last Admin: 05/16/17 09:36 Dose: 0.125 mg Diltiazem HCl (Cardizem Cd -) 180 mg PO DAILY [facility] Last Admin: 05/16/17 09:32 Dose: 180 mg Hydralazine HCl (Apresoline -) 25 mg PO BID [facility] Last Admin: 05/16/17 09:32 Dose: 25 mg Ceftriaxone Sodium 1 gm/ (Dextrose) 50 mls @ 100 mls/hr IVPB DAILY [facility] Last Admin: 05/16/17 09:33 Dose: 100 mls/hr Metoprolol Succinate (Toprol Xl -) 25 mg PO DAILY [facility] Last Admin: 05/16/17 09:33 Dose: 25 mg Multivitamins/Minerals/Vitamin C (Tab-A-Vit -) 1 tab PO DAILY [facility] Last Admin: 05/16/17 09:32 Dose: 1 tab Oxycodone HCl (Roxicodone -) 5 mg PO BID PRN PRN Reason: PAIN LEVEL 4 - 6 Last Admin: 05/16/17 07:39 Dose: 5 mg Prednisone (Deltasone -) 40 mg PO DAILY [facility] Last Admin: 05/16/17 09:33 Dose: 40 mg Pyridoxine HCl (Vitamin B6 -) 50 mg PO DAILY [facility] Last Admin: 05/16/17 09:32 Dose: 50 mg Sertraline HCl (Zoloft -) 25 mg PO DAILY [facility] Last Admin: 05/16/17 09:32 Dose: 25 mg Valsartan (Diovan -) 320 mg PO DAILY [facility] Last Admin: 05/16/17 09:32 Dose: 320 mg Vital Signs - 24 hr 05/15/17 05/15/17 05/15/17 17:00 20:09 20:12 Temperature 98.8 F Pulse Rate 77 64 Respiratory 20 Rate Blood Pressure 165/75 O2 Sat by Pulse 94 L 94 L Oximetry (%) 05/15/17 05/15/17 05/16/17 20:40 21:08 01:51 Temperature 97.7 F 98.3 F Pulse Rate 64 71 Respiratory 20 20 Rate Blood Pressure 130/61 144/67 O2 Sat by Pulse 97 Oximetry (%) 05/16/17 05/16/17 05/16/17 02:10 08:46 09:00 Temperature 98.5 F Pulse Rate 69 Respiratory 20 20 Rate Blood Pressure 165/82 O2 Sat by Pulse 97 Oximetry (%) 05/16/17 05/16/17 09:36 14:00 Temperature 97.7 F Pulse Rate 71 73 Respiratory 20 Rate Blood Pressure 107/57 O2 Sat by Pulse Oximetry (%) Intake & Output 05/14/17 05/15/17 05/16/17 05/17/17 07:59 07:59 07:59 07:59 Intake Total 260 810 820 110 Balance 260 810 820 110 Weight 129 lb 9 oz 129 lb 129 lb 12.8 oz nad, no jvd rrr s1s2 no mrg dec air movement, nl eff aaox3 no le e/c/c no diaphoresis/jaundice abd nt nd pos bs CBC, BMP 05/16/17 05:00 05/16/17 05:00 Laboratory Tests 05/11/17 05/16/17 05/16/17 05:51 05:00 05:00 INR 1.91 H D Magnesium 1.9 Digoxin 1.0803 ecg: demand v-pacing with either pac or [place] beat. lateral twi (present on priors) off tele cxr: elevated right hemidiaphragm. minimal bibasilar pleural fluid. some congestive changes. patchy right infiltrate. questionable early left base infiltrate. chest ct: right hilar mass surrounding RML bronchus with cut off and resultant RML atelectasis. suspicious for neoplasm. small layering rt pleural effusion with compressive atelectasis of rt lung base. asc aorta 4.1 cm, stable. mildly dilated main PA 3.2 cm. echo 05/2016: tds; nl lv, nl rv size, mild marcus, mild mr, mild-mod tr, rvsp 40-50 , mod ao root dil pfts 06/2016: severe obstruction. moderate restriction. severe diffusion defect. Assessment/Plan 80 f hx afib on coumadin, htn, hld, tachy/maricruz syndrome s/p ppm, copd, pad s/p rle bypass, possible cad (equivocal MIBI), chronic sob/briones/palps likely related to anxiety, esophageal ca s/p laser treatment, here with sob. sob: -initially required bipap, now on RA. - current presentation seems more related to copd than chf. bnp lower than priors. -cont tx copd per pmd/pulm, Infectious/malignancy eval/mgm't per pmd/pulm. -see below regarding diuresis chronic diast CHF: -no signs of volume overload off diuretics. Previously on daily po lasix. afib: -Rate controlled on dilt plus low dose metopr and dig (dig level ok here 05/11) -cont AC with warfarin per inr htn: -overall controlled, occasionally labile. tachy/maricruz syndrome s/p ppm: - Stable, cont routine outpt checks pad s/p rle bypass: -Stable, no claudication. con't med mgm't possible cad (equivocal MIBI): -No angina, continue medical management (statin, BB, ARB...no ASA (on AC)) lung mass: -plans per pulm -no cardiac contraindications to planned thoracentesis, ok to hold ac temporarily cardiac smith stable
[2017-05-16] MEDS: ATORVASTATIN CA 10 MG TABLET (FP) PO SCH (22:30)
[2017-05-17] MEDS: oxyCODONE HCL 5 MG TABLET PO PRN (06:27)
[2017-05-17 07:57] LABS: ANION GAP 8 (8-16); BLOOD UREA NITROGEN 25 mg/dL (7-18); CALCIUM 8.6 mg/dL (8.5-10.1); CHLORIDE 106 mmol/L (98-107); CO2 30 mmol/L (21-32); GLUCOSE,RANDOM 66 mg/dL (74-106); SODIUM 144 mmol/L (136-145)
[2017-05-17 08:21] LABS: BASO % 0.2 % (0-2.0); EOS % 1.6 % (0-4.5); HEMATOCRIT 37.2 % (32.4-45.2); HEMOGLOBIN 12.1 GM/dL (10.7-15.3); LYMPH % 13.5 % (8-40); MCH 29.8 pg (25.7-33.7); MCHC 32.6 g/dl (32.0-36.0); MEAN CELL VOLUME 91.3 fl (80-96); MEAN PLT VOLUME 9.8 fl (7.5-11.1); NEUT % 75.7 % (42.8-82.8); PLATELET COUNT 238 K/MM3 (134-434); RBC 4.07 M/mm3 (3.60-5.2); RDW 16.5 % (11.6-15.6); WHITE BLOOD COUNT 14.5 K/mm3 (4.0-10.0)
[2017-05-17] MEDS: ALBUTEROL SO4 2.5/IPRATROPIUM 0.5 INH SOL 3 ML VIAL.NEB. NEB SCH ×3 (08:30→20:50)
[2017-05-17] MEDS ORDERED: DEXTROSE 5%-WATER - 50 ML IVPB ONE (08:37)
[2017-05-17] MEDS ORDERED: PT OWN MED DRAWER 7, Y5N ONE (08:37)
[2017-05-17] MEDS ORDERED: cefTRIAXone SODIUM 1 GM VIAL ONE (08:37)
[2017-05-17 08:38] LABS: INR 1.46 (0.82-1.09); PROTHROMBIN TIME (PATIENT) 16.5 SEC (9.98-11.88)
[2017-05-17] MEDS: metoPROLOL SUCCINATE 25 MG TAB.SR.24H (FP) PO SCH (09:47)
[2017-05-17] MEDS: predniSONE 20 MG TABLET (UD) PO SCH (09:47)
[2017-05-17] MEDS: CYANOCOBALAMIN 1,000 MCG TABLET (FP) PO SCH (09:47)
[2017-05-17] MEDS: hydrALAZINE HCL 25 MG TABLET (FP) PO SCH ×2 (09:47→21:36)
[2017-05-17] MEDS: MULTIVITAMINS (DAILY MVI) TABLET (FP) PO SCH (09:47)
[2017-05-17] MEDS: SERTRALINE HCL 25 MG TABLET (FP) PO SCH (09:47)
[2017-05-17] MEDS: ASCORBIC ACID 500 MG TABLET (FP) PO SCH (09:50)
[2017-05-17] MEDS: DIGOXIN 0.125 MG TABLET (FP) PO SCH (09:51)
[2017-05-17] MEDS: VALSARTAN 160 MG TABLET (UD) PO SCH (09:52)
[2017-05-17] MEDS: BUDESONIDE/FORMETEROL FUMARATE 160/4.5 mcg INHALER IH SCH ×2 (09:52→21:35)
[2017-05-17] MEDS: CHOLECALCIFEROL (VITAMIN D3) 400 UNIT TABLET (FP) PO SCH (09:53)
[2017-05-17] MEDS: PYRIDOXINE HCL (B-6) 50 MG TABLET (FP) PO SCH (09:54)
--- NOTE | 2017-05-17 10:18 | PN ---
Progress Note, Physician History of Present Illness: PULMONARY ALERT,NO DISTRESS,-SOB - Current Medication List Current Medications: Active Medications Albuterol Sulfate (Ventolin 0.083% Nebulizer Soln -) 1 amp NEB Q4H PRN PRN Reason: SHORT OF BREATH/WHEEZING Last Admin: 05/10/17 12:55 Dose: 1 amp Albuterol/Ipratropium (Duoneb -) 1 amp NEB RTID [facility] Last Admin: 05/17/17 08:30 Dose: 1 amp Ascorbic Acid (Vitamin C -) 500 mg PO DAILY [facility] Last Admin: 05/17/17 09:50 Dose: 500 mg Atorvastatin Calcium (Lipitor -) 10 mg PO HS [facility] Last Admin: 05/16/17 22:30 Dose: 10 mg Budesonide/Formoterol Fumarate (Symbicort 160/4.5mcg -) 2 puff IH BID [facility] Last Admin: 05/17/17 09:52 Dose: 2 puff Cholecalciferol (Vitamin D3 -) 400 unit PO DAILY [facility] Last Admin: 05/17/17 09:53 Dose: Not Given Cyanocobalamin (Vitamin B12 -) 1,000 mcg PO DAILY [facility] Last Admin: 05/17/17 09:47 Dose: 1,000 mcg Digoxin (Lanoxin -) 0.125 mg PO DAILY [facility] Last Admin: 05/17/17 09:51 Dose: 0.125 mg Diltiazem HCl (Cardizem Cd -) 180 mg PO DAILY [facility] Last Admin: 05/17/17 09:47 Dose: 180 mg Hydralazine HCl (Apresoline -) 25 mg PO BID [facility] Last Admin: 05/17/17 09:47 Dose: 25 mg Metoprolol Succinate (Toprol Xl -) 25 mg PO DAILY [facility] Last Admin: 05/17/17 09:47 Dose: 25 mg Multivitamins/Minerals/Vitamin C (Tab-A-Vit -) 1 tab PO DAILY [facility] Last Admin: 05/17/17 09:47 Dose: 1 tab Oxycodone HCl (Roxicodone -) 5 mg PO BID PRN PRN Reason: PAIN LEVEL 4 - 6 Last Admin: 05/17/17 06:27 Dose: 5 mg Prednisone (Deltasone -) 40 mg PO DAILY [facility] Last Admin: 05/17/17 09:47 Dose: 40 mg Pyridoxine HCl (Vitamin B6 -) 50 mg PO DAILY [facility] Last Admin: 05/17/17 09:54 Dose: Not Given Sertraline HCl (Zoloft -) 25 mg PO DAILY [facility] Last Admin: 05/17/17 09:47 Dose: 25 mg Valsartan (Diovan -) 320 mg PO DAILY [facility] Last Admin: 05/17/17 09:52 Dose: 320 mg - Objective Vital Signs: Vital Signs Temperature 98.5 F 05/17/17 06:00 Pulse Rate 68 05/17/17 09:51 Respiratory Rate 20 05/17/17 06:00 Blood Pressure 172/62 05/17/17 06:00 O2 Sat by Pulse Oximetry (%) 98 05/17/17 05:56 Constitutional: Yes: Well Nourished, Calm Eyes: Yes: WNL HENT: Yes: WNL Neck: Yes: WNL Cardiovascular: Yes: Pulse Irregular, S1, S2 Respiratory: Yes: Diminished Gastrointestinal: Yes: Normal Bowel Sounds, Soft Extremities: Yes: WNL Edema: No Labs: CBC, BMP 05/17/17 06:00 05/17/17 06:00 INR, PTT INR 1.46 (0.82-1.09) H 05/17/17 06:00 Assessment/Plan Problem List - Problems (1) Acute exacerbation of chronic obstructive pulmonary disease (COPD) Code(s): J44.1 - CHRONIC OBSTRUCTIVE PULMONARY DISEASE W (ACUTE) EXACERBATION (2) Pneumonia Code(s): J18.9 - PNEUMONIA, UNSPECIFIED ORGANISM (3) Atrial fibrillation Code(s): I48.91 - UNSPECIFIED ATRIAL FIBRILLATION (4) PAD (peripheral artery disease) Code(s): I73.9 - PERIPHERAL VASCULAR DISEASE, UNSPECIFIED Assessment/Plan Acute COPD Exacerbation R hilar mass Pneumonia Atrial Fibrillation CAD PAD - prednisone - thoracentesis in am - flex bronch if thoracentesis non-diagnostic - inhaled bronchodilators - O2 to keep SpO2 >90% - BiPAP as needed to assist in work of breathing - o2 sat rest and post exercise on ra DR GRANDE
--- NOTE | 2017-05-17 11:52 | PN ---
Progress Note (short form) - Note Progress Note: s: no sob cp palps dizzy. o: Vital Signs Period Temp Pulse Resp BP Sys/Wahl Pulse Ox Last 24 Hr 97.5 F-98.6 F 64-73 18-20 107-172/57-70 95-98 nad, no jvd rrr s1s2 no mrg cta bl, nl eff aaox3 no le e/c/c no diaphoresis/jaundice abd nt nd pos bs Current Medications Generic Name Dose Route Start Last Admin Trade Name Freq PRN Reason Stop Dose Admin Albuterol Sulfate 1 amp 05/09/17 18:46 05/10/17 12:55 Ventolin 0.083% Nebulizer Soln - NEB 1 amp Q4H PRN Administration SHORT OF BREATH/WHEEZING Albuterol/Ipratropium 1 amp 05/10/17 14:00 05/17/17 08:30 Duoneb - NEB 1 amp RTID [facility] Administration Ascorbic Acid 500 mg 05/10/17 10:00 05/17/17 09:50 Vitamin C - PO 500 mg DAILY [facility] Administration Atorvastatin Calcium 10 mg 05/09/17 22:00 05/16/17 22:30 Lipitor - PO 10 mg HS [facility] Administration Budesonide/Formoterol Fumarate 2 puff 05/14/17 13:30 05/17/17 09:52 Symbicort 160/4.5mcg - IH 2 puff BID [facility] Administration Cholecalciferol 400 unit 05/10/17 10:00 05/17/17 09:53 Vitamin D3 - PO Not Given DAILY [facility] Cyanocobalamin 1,000 mcg 05/10/17 10:00 05/17/17 09:47 Vitamin B12 - PO 1,000 mcg DAILY [facility] Administration Digoxin 0.125 mg 05/10/17 10:00 05/17/17 09:51 Lanoxin - PO 0.125 mg DAILY [facility] Administration Diltiazem HCl 180 mg 05/10/17 10:00 05/17/17 09:47 Cardizem Cd - PO 180 mg DAILY [facility] Administration Hydralazine HCl 25 mg 05/09/17 22:00 05/17/17 09:47 Apresoline - PO 25 mg BID [facility] Administration Metoprolol Succinate 25 mg 05/11/17 10:00 05/17/17 09:47 Toprol Xl - PO 25 mg DAILY [facility] Administration Multivitamins/Minerals/Vitamin C 1 tab 05/10/17 10:00 05/17/17 09:47 Tab-A-Vit - PO 1 tab DAILY [facility] Administration Prednisone 40 mg 05/16/17 10:00 05/17/17 09:47 Deltasone - PO 40 mg DAILY [facility] Administration Pyridoxine HCl 50 mg 05/10/17 10:00 05/17/17 09:54 Vitamin B6 - PO Not Given DAILY [facility] Sertraline HCl 25 mg 05/10/17 10:00 05/17/17 09:47 Zoloft - PO 25 mg DAILY [facility] Administration Valsartan 320 mg 05/10/17 10:00 05/17/17 09:52 Diovan - PO 320 mg DAILY [facility] Administration CBC, BMP 05/17/17 06:00 05/17/17 06:00 ecg: demand v-pacing with either pac or [place] beat. lateral twi (present on priors) cxr: elevated right hemidiaphragm. minimal bibasilar pleural fluid. some congestive changes. patchy right infiltrate. questionable early left base infiltrate. echo 05/2016: tds; nl lv, nl rv size, mild marcus, mild mr, mild-mod tr, rvsp 40-50 , mod ao root dil pfts 06/2016: severe obstruction. moderate restriction. severe diffusion defect. Assessment/Plan 80 f hx afib on coumadin, htn, hld, tachy/maricruz syndrome s/p ppm, copd, pad s/p rle bypass, possible cad (equivocal MIBI), chronic sob/briones/palps likely related to anxiety, esophageal ca s/p laser treatment, here with sob. sob: -now off bipap. current presentation seems more related to copd than chf. bnp lower than priors. -cont tx copd per pmd/pulm, Infectious eval/mgm't per pmd/pulm. -see below regarding diuresis chronic diast CHF: -no signs of volume overload off diuretics. Previously on daily po lasix. afib: -Rate controlled on dilt plus low dose metopr and dig (dig level ok here) -cont AC with warfarin per inr htn: -controlled tachy/maricruz syndrome s/p ppm: - Stable, cont routine outpt checks pad s/p rle bypass: -Stable, no claudication. con't med mgm't possible cad (equivocal MIBI): -No angina, continue medical management (statin, BB, ARB...no ASA (on AC)) lung mass: -plans per pulm -no cardiac contraindications to planned thoracentesis, ok to hold ac temporarily cardiac smith stable
--- NOTE | 2017-05-17 14:03 | PN ---
Physical Exam: SUBJECTIVE: Patient seen and examined, denies shortness of breath. Sitting up, in no acute distress. OBJECTIVE: Vital Signs Period Temp Pulse Resp BP Sys/Wahl Pulse Ox Last 24 Hr 97.5 F-98.6 F 64-68 18-20 137-172/58-70 95-98 GENERAL: The patient is awake, alert, and fully oriented, in no acute distress. LUNGS: Breath sounds equal, clear to auscultation bilaterally, no wheezes, no crackles, no accessory muscle use. HEART: Regular rate and rhythm, S1, S2 without murmur, rub or gallop. ABDOMEN: Soft, nontender, nondistended, normoactive bowel sounds, no guarding, no rebound, no hepatosplenomegaly, no masses. EXTREMITIES: 2+ pulses, warm, well-perfused, no edema. PSYCH: Normal mood, normal affect. Laboratory Results - last 24 hr 05/17/17 05/17/17 05/17/17 06:00 06:00 06:00 WBC 14.5 H RBC 4.07 Hgb 12.1 Hct 37.2 MCV 91.3 MCH 29.8 MCHC 32.6 RDW 16.5 H Plt Count 238 MPV 9.8 Neutrophils % 75.7 Lymphocytes % 13.5 D Monocytes % 9.0 Eosinophils % 1.6 D Basophils % 0.2 D PT with INR 16.50 H INR 1.46 H Sodium 144 Potassium 4.0 Chloride 106 Carbon Dioxide 30 Anion Gap 8 BUN 25 H Creatinine 1.0 Random Glucose 66 L Calcium 8.6 Active Medications Generic Name Dose Route Start Last Admin Trade Name Freq PRN Reason Stop Dose Admin Albuterol Sulfate 1 amp 05/09/17 18:46 05/10/17 12:55 Ventolin 0.083% Nebulizer Soln - NEB 1 amp Q4H PRN Administration SHORT OF BREATH/WHEEZING Albuterol/Ipratropium 1 amp 05/10/17 14:00 05/17/17 13:23 Duoneb - NEB 1 amp RTID [facility] Administration Ascorbic Acid 500 mg 05/10/17 10:00 05/17/17 09:50 Vitamin C - PO 500 mg DAILY [facility] Administration Atorvastatin Calcium 10 mg 05/09/17 22:00 05/16/17 22:30 Lipitor - PO 10 mg HS [facility] Administration Budesonide/Formoterol Fumarate 2 puff 05/14/17 13:30 05/17/17 09:52 Symbicort 160/4.5mcg - IH 2 puff BID [facility] Administration Cholecalciferol 400 unit 05/10/17 10:00 05/17/17 09:53 Vitamin D3 - PO Not Given DAILY [facility] Cyanocobalamin 1,000 mcg 05/10/17 10:00 05/17/17 09:47 Vitamin B12 - PO 1,000 mcg DAILY [facility] Administration Digoxin 0.125 mg 05/10/17 10:00 05/17/17 09:51 Lanoxin - PO 0.125 mg DAILY [facility] Administration Diltiazem HCl 180 mg 05/10/17 10:00 05/17/17 09:47 Cardizem Cd - PO 180 mg DAILY [facility] Administration Hydralazine HCl 25 mg 05/09/17 22:00 05/17/17 09:47 Apresoline - PO 25 mg BID [facility] Administration Metoprolol Succinate 25 mg 05/11/17 10:00 05/17/17 09:47 Toprol Xl - PO 25 mg DAILY [facility] Administration Multivitamins/Minerals/Vitamin C 1 tab 05/10/17 10:00 05/17/17 09:47 Tab-A-Vit - PO 1 tab DAILY [facility] Administration Prednisone 40 mg 05/16/17 10:00 05/17/17 09:47 Deltasone - PO 40 mg DAILY [facility] Administration Pyridoxine HCl 50 mg 05/10/17 10:00 05/17/17 09:54 Vitamin B6 - PO Not Given DAILY [facility] Sertraline HCl 25 mg 05/10/17 10:00 05/17/17 09:47 Zoloft - PO 25 mg DAILY [facility] Administration Valsartan 320 mg 05/10/17 10:00 05/17/17 09:52 Diovan - PO 320 mg DAILY [facility] Administration ASSESSMENT/PLAN: Patient is an 81 year old female with a significant past medical history of COPD , asthma, a.fib, CAD, PAD s/p RLE bypass, and anxiety. Patient presented to ED on 05/09/2017 with worsening shortness of breath. Pulmonary: Lung mass with layering pleural effusion NPO at midnight for planned thoracentesis tomorrow Coumadin has been on hold for procedure INR now subtherapeutic On Cardizem 180mg for rate control Pre and post prior to discharge COPD exacerbation, improved On Prednisone Duonebs Tolerating room air On Symbicort Supplement oxygen prn Card: Diastolic CHF, chronic On Toprol, Valsartan, Hydralazine, digoxin and Lipitor AFib Coumadin on hold for thoracentesis INR now subtherapeutic On Cardizem 180mg for rate control full code Visit type - Emergency Visit Emergency Visit: Yes ED Registration Date: 05/09/17 Care time: The patient presented to the Emergency Department on the above date and was hospitalized for further evaluation of their emergent condition. - New Patient This patient is new to me today: Yes Date on this admission: 05/17/17 - Critical Care Critical Care patient: No - Discharge Referral Referred to [facility] Med P.C.: No
[2017-05-17] MEDS: ATORVASTATIN CA 10 MG TABLET (FP) PO SCH (21:36)
[2017-05-18 05:41] VITALS: TEMP 98.3
[2017-05-18] MEDS: ALBUTEROL SO4 2.5/IPRATROPIUM 0.5 INH SOL 3 ML VIAL.NEB. NEB SCH ×2 (07:31→13:28)
[2017-05-18] MEDS ORDERED: oxyCODONE HCL 5 MG TABLET PO ONE (08:31)
[2017-05-18] MEDS ORDERED: PT OWN MED DRAWER 7, Y5N ONE (08:38)
[2017-05-18 09:15] VITALS: BP 178/78
[2017-05-18] MEDS: VALSARTAN 160 MG TABLET (UD) PO SCH (09:16)
[2017-05-18] MEDS: SERTRALINE HCL 25 MG TABLET (FP) PO SCH (09:16)
[2017-05-18] MEDS: ASCORBIC ACID 500 MG TABLET (FP) PO SCH (09:17)
[2017-05-18] MEDS: DIGOXIN 0.125 MG TABLET (FP) PO SCH (09:17)
[2017-05-18] MEDS: PYRIDOXINE HCL (B-6) 50 MG TABLET (FP) PO SCH (09:17)
[2017-05-18] MEDS: metoPROLOL SUCCINATE 25 MG TAB.SR.24H (FP) PO SCH (09:17)
[2017-05-18] MEDS: CYANOCOBALAMIN 1,000 MCG TABLET (FP) PO SCH (09:17)
[2017-05-18] MEDS: BUDESONIDE/FORMETEROL FUMARATE 160/4.5 mcg INHALER IH SCH (09:17)
[2017-05-18] MEDS: MULTIVITAMINS (DAILY MVI) TABLET (FP) PO SCH (09:17)
[2017-05-18] MEDS: hydrALAZINE HCL 25 MG TABLET (FP) PO SCH (09:17)
[2017-05-18] MEDS: CHOLECALCIFEROL (VITAMIN D3) 400 UNIT TABLET (FP) PO SCH (09:18)
[2017-05-18] MEDS: predniSONE 20 MG TABLET (UD) PO SCH (09:18)
[2017-05-18 09:50] LABS: BASO % 0.6 % (0-2.0); EOS % 1.2 % (0-4.5); HEMATOCRIT 41.4 % (32.4-45.2); HEMOGLOBIN 13.1 GM/dL (10.7-15.3); LYMPH % 12.5 % (8-40); MCH 29.1 pg (25.7-33.7); MCHC 31.7 g/dl (32.0-36.0); MEAN CELL VOLUME 91.6 fl (80-96); MEAN PLT VOLUME 9.2 fl (7.5-11.1); MONO % 10.3 % (3.8-10.2); NEUT % 75.4 % (42.8-82.8); PLATELET COUNT 296 K/MM3 (134-434); RBC 4.52 M/mm3 (3.60-5.2); RDW 16.3 % (11.6-15.6); WHITE BLOOD COUNT 19.2 K/mm3 (4.0-10.0)
[2017-05-18 09:54] VITALS: PULSE 76
[2017-05-18 10:15] LABS: ALBUMIN 3.6 g/dl (3.4-5.0); ANION GAP 5 (8-16); BILIRUBIN,TOTAL 0.7 mg/dL (0.2-1.0); BLOOD UREA NITROGEN 26 mg/dL (7-18); CALCIUM 8.7 mg/dL (8.5-10.1); CHLORIDE 107 mmol/L (98-107); CO2 31 mmol/L (21-32); GLUCOSE,RANDOM 80 mg/dL (74-106); POTASSIUM 4.1 mmol/L (3.5-5.1); SGOT/AST 50 U/L (15-37); SGPT/ALT 151 U/L (12-78); SODIUM 143 mmol/L (136-145); TOT PROT 6.7 g/dl (6.4-8.2)
[2017-05-18 10:16] LABS: ALK PHOS 76 U/L (45-117)
[2017-05-18 10:35] LABS: INR 1.17 (0.82-1.09); PROTHROMBIN TIME (PATIENT) 13.2 SEC (9.98-11.88)
--- NOTE | 2017-05-18 11:09 | PN ---
Progress Note, Physician History of Present Illness: PULMONARY ALERT,NAD,-CP,-SOB - Current Medication List Current Medications: Active Medications Albuterol Sulfate (Ventolin 0.083% Nebulizer Soln -) 1 amp NEB Q4H PRN PRN Reason: SHORT OF BREATH/WHEEZING Last Admin: 05/10/17 12:55 Dose: 1 amp Albuterol/Ipratropium (Duoneb -) 1 amp NEB RTID [facility] Last Admin: 05/18/17 07:31 Dose: Not Given Ascorbic Acid (Vitamin C -) 500 mg PO DAILY [facility] Last Admin: 05/18/17 09:17 Dose: 500 mg Atorvastatin Calcium (Lipitor -) 10 mg PO HS [facility] Last Admin: 05/17/17 21:36 Dose: 10 mg Budesonide/Formoterol Fumarate (Symbicort 160/4.5mcg -) 2 puff IH BID [facility] Last Admin: 05/18/17 09:17 Dose: 2 puff Cholecalciferol (Vitamin D3 -) 400 unit PO DAILY [facility] Last Admin: 05/18/17 09:18 Dose: 400 unit Cyanocobalamin (Vitamin B12 -) 1,000 mcg PO DAILY [facility] Last Admin: 05/18/17 09:17 Dose: 1,000 mcg Digoxin (Lanoxin -) 0.125 mg PO DAILY [facility] Last Admin: 05/18/17 09:17 Dose: 0.125 mg Diltiazem HCl (Cardizem Cd -) 180 mg PO DAILY [facility] Last Admin: 05/18/17 09:18 Dose: 180 mg Hydralazine HCl (Apresoline -) 25 mg PO BID [facility] Last Admin: 05/18/17 09:17 Dose: 25 mg Metoprolol Succinate (Toprol Xl -) 25 mg PO DAILY [facility] Last Admin: 05/18/17 09:17 Dose: 25 mg Multivitamins/Minerals/Vitamin C (Tab-A-Vit -) 1 tab PO DAILY [facility] Last Admin: 05/18/17 09:17 Dose: 1 tab Prednisone (Deltasone -) 40 mg PO DAILY [facility] Last Admin: 05/18/17 09:18 Dose: 40 mg Pyridoxine HCl (Vitamin B6 -) 50 mg PO DAILY [facility] Last Admin: 05/18/17 09:17 Dose: 50 mg Sertraline HCl (Zoloft -) 25 mg PO DAILY [facility] Last Admin: 05/18/17 09:16 Dose: 25 mg Valsartan (Diovan -) 320 mg PO DAILY [facility] Last Admin: 05/18/17 09:16 Dose: 320 mg - Objective Vital Signs: Vital Signs Temperature 98.3 F 05/18/17 05:40 Pulse Rate 76 05/18/17 09:54 Respiratory Rate 20 05/18/17 05:40 Blood Pressure 178/78 05/18/17 09:14 O2 Sat by Pulse Oximetry (%) 97 05/18/17 09:54 Constitutional: Yes: Well Nourished, Calm Eyes: Yes: WNL HENT: Yes: WNL Neck: Yes: WNL Cardiovascular: Yes: Regular Rate and Rhythm, S1, S2 Respiratory: Yes: Diminished Gastrointestinal: Yes: Normal Bowel Sounds, Soft Extremities: Yes: WNL Edema: No Labs: CBC, BMP 05/18/17 09:40 05/18/17 09:40 INR, PTT INR 1.17 (0.82-1.09) H 05/18/17 09:40 Assessment/Plan Problem List - Problems (1) Acute exacerbation of chronic obstructive pulmonary disease (COPD) Code(s): J44.1 - CHRONIC OBSTRUCTIVE PULMONARY DISEASE W (ACUTE) EXACERBATION (2) Pneumonia Code(s): J18.9 - PNEUMONIA, UNSPECIFIED ORGANISM (3) Atrial fibrillation Code(s): I48.91 - UNSPECIFIED ATRIAL FIBRILLATION (4) PAD (peripheral artery disease) Code(s): I73.9 - PERIPHERAL VASCULAR DISEASE, UNSPECIFIED Assessment/Plan Acute COPD Exacerbation R hilar mass Pneumonia Atrial Fibrillation CAD PAD - prednisone - thoracentesis today - flex bronch if thoracentesis non-diagnostic - inhaled bronchodilators - O2 to keep SpO2 >90% - BiPAP as needed to assist in work of breathing - home O2 - DR GRANDE
--- NOTE | 2017-05-18 12:25 | PN ---
Progress Note, Physician Chief Complaint: sob History of Present Illness: s/p thoracentesis today. breathing feels easier. chest "strain" (mild discomfort) when breathes in no other cp no leg swelling no palpitations - Current Medication List Current Medications: Active Medications Albuterol Sulfate (Ventolin 0.083% Nebulizer Soln -) 1 amp NEB Q4H PRN PRN Reason: SHORT OF BREATH/WHEEZING Last Admin: 05/10/17 12:55 Dose: 1 amp Albuterol/Ipratropium (Duoneb -) 1 amp NEB RTID [facility] Last Admin: 05/18/17 07:31 Dose: Not Given Ascorbic Acid (Vitamin C -) 500 mg PO DAILY [facility] Last Admin: 05/18/17 09:17 Dose: 500 mg Atorvastatin Calcium (Lipitor -) 10 mg PO HS [facility] Last Admin: 05/17/17 21:36 Dose: 10 mg Budesonide/Formoterol Fumarate (Symbicort 160/4.5mcg -) 2 puff IH BID [facility] Last Admin: 05/18/17 09:17 Dose: 2 puff Cholecalciferol (Vitamin D3 -) 400 unit PO DAILY [facility] Last Admin: 05/18/17 09:18 Dose: 400 unit Cyanocobalamin (Vitamin B12 -) 1,000 mcg PO DAILY [facility] Last Admin: 05/18/17 09:17 Dose: 1,000 mcg Digoxin (Lanoxin -) 0.125 mg PO DAILY [facility] Last Admin: 05/18/17 09:17 Dose: 0.125 mg Diltiazem HCl (Cardizem Cd -) 180 mg PO DAILY [facility] Last Admin: 05/18/17 09:18 Dose: 180 mg Hydralazine HCl (Apresoline -) 25 mg PO BID [facility] Last Admin: 05/18/17 09:17 Dose: 25 mg Metoprolol Succinate (Toprol Xl -) 25 mg PO DAILY [facility] Last Admin: 05/18/17 09:17 Dose: 25 mg Multivitamins/Minerals/Vitamin C (Tab-A-Vit -) 1 tab PO DAILY [facility] Last Admin: 05/18/17 09:17 Dose: 1 tab Prednisone (Deltasone -) 40 mg PO DAILY [facility] Last Admin: 05/18/17 09:18 Dose: 40 mg Pyridoxine HCl (Vitamin B6 -) 50 mg PO DAILY [facility] Last Admin: 05/18/17 09:17 Dose: 50 mg Sertraline HCl (Zoloft -) 25 mg PO DAILY [facility] Last Admin: 05/18/17 09:16 Dose: 25 mg Valsartan (Diovan -) 320 mg PO DAILY [facility] Last Admin: 05/18/17 09:16 Dose: 320 mg - Objective Vital Signs: Vital Signs Temperature 98.3 F 05/18/17 05:40 Pulse Rate 76 05/18/17 09:54 Respiratory Rate 20 05/18/17 05:40 Blood Pressure 178/78 05/18/17 09:14 O2 Sat by Pulse Oximetry (%) 97 05/18/17 09:54 Constitutional: Yes: Well Nourished, No Distress, Calm Cardiovascular: Yes: Regular Rate and Rhythm, S1, S2. No: JVD, Gallop, Murmur Respiratory: Yes: Regular, CTA Bilaterally. No: Accessory Muscle Use, Rales, Wheezes Extremities: No: Cold Edema: No Neurological: Yes: Alert, Oriented Psychiatric: No: Agitated Labs: CBC, BMP 05/18/17 09:40 05/18/17 09:40 INR, PTT INR 1.17 (0.82-1.09) H 05/18/17 09:40 Assessment/Plan ecg: demand v-pacing with either pac or quinault beat. lateral twi (present on priors) cxr: elevated right hemidiaphragm. minimal bibasilar pleural fluid. some congestive changes. patchy right infiltrate. questionable early left base infiltrate. echo 05/2016: tds; nl lv, nl rv size, mild marcus, mild mr, mild-mod tr, rvsp 40-50 , mod ao root dil pfts 06/2016: severe obstruction. moderate restriction. severe diffusion defect. tele: ++ artifact, now off Assessment/Plan 80 f hx afib on coumadin, htn, hld, tachy/maricruz syndrome s/p ppm, copd, pad s/p rle bypass, possible cad (equivocal MIBI), chronic sob/briones/palps likely related to anxiety, esophageal ca s/p laser treatment, here with sob. a.e. copd, PNA -now off bipap. current presentation seems more related to copd than chf. bnp lower than priors. -cont tx per pulm -see below regarding diuresis chronic diast CHF: -no signs of volume overload off diuretics. -has been on lasix 40 qod at home (she fears dehydration at higher doses) -appears euvolemic--resume home lasix afib: -Rates consistently controlled here on dilt plus low dose metopr and dig (dig level ok here) -cont AC with warfarin per inr htn: -bp's labile here, suboptimal control -on amlodipine 5 at home, not getting this here--resumed 05/18 -observe bp trend tachy/maricruz syndrome s/p ppm: - Stable, cont routine outpt checks pad s/p rle bypass: -Stable, no claudication. con't med mgm't possible cad (equivocal MIBI): -No angina, continue medical management (statin, BB, ARB...no ASA (on AC)) lung mass: -plans per pulm -no cardiac contraindications to planned thoracentesis, ok to hold ac temporarily NO INDICATION FOR CONTINUED TELE MONITORING
[2017-05-18] MEDS ORDERED: amLODIPine BESYLATE 5 MG TABLET (FP) PO SCH (12:45)
--- NOTE | 2017-05-18 14:13 | DS ---
Physical Examination Vital Signs: Vital Signs Temperature 36.8 C 05/18/17 05:40 Pulse Rate 76 05/18/17 09:54 Respiratory Rate 20 05/18/17 05:40 Blood Pressure 178/78 05/18/17 09:14 O2 Sat by Pulse Oximetry (%) 97 05/18/17 09:54 Labs: CBC, BMP 05/18/17 09:40 05/18/17 09:40 Discharge Summary Reason For Visit: ACUTE CHRONIC RESPIRATORY FAILURE Current Active Problems Coumadin toxicity (Acute) Diastolic CHF (Acute) Lung mass (Acute) Respiratory failure, [id number] (Acute) Condition: Stable - Instructions Diet, Activity, Other Instructions: resume previous activity. Regular diet without restrictions Referrals: Oniel Fowler MD [Staff Physician] - Zeus Torres MD [Staff Physician] - Maxim Larson MD [Staff Physician] - 1 Week Disposition: HOME - Home Medications Comprehensive Discharge Medication List: Ambulatory Orders Ascorbic Acid [Vitamin C -] 500 mg PO DAILY 05/09/17 Atorvastatin Ca [Lipitor] 10 mg PO HS 05/09/17 Cholecalciferol (Vitamin D3) [Vitamin D3] 400 unit PO DAILY 05/09/17 Cyanocobalamin [Vitamin B12 -] 1,000 mcg PO DAILY 05/09/17 Digoxin [Lanoxin -] 0.125 mg PO DAILY 05/09/17 Diltiazem HCl [Tiazac] 180 mg PO DAILY 05/09/17 Fluticasone/Vilanterol [Breo Ellipta 100-25 Mcg INH] 1 each IH DAILY 05/09/17 Hydralazine HCl 25 mg PO BID 05/09/17 Magnesium Oxide [Magnesium] 400 mg PO BID 05/09/17 Multivitamin/Iron/Folic Acid [Centrum Adults Tablet] 1 each PO DAILY 05/09/17 Pyridoxine HCl (B-6) [Vitamin B6 -] 50 mg PO DAILY 05/09/17 Sertraline HCl 25 mg PO DAILY 05/09/17 Valsartan 320 mg PO DAILY 05/09/17 oxyCODONE HCL [Roxicodone -] 5 mg PO BID PRN 05/09/17 Apixaban [Eliquis -] 2.5 mg PO BID #60 tablet 05/18/17 Furosemide [Lasix -] 40 mg PO Q2D tablet 05/18/17 Ipratropium/Albuterol Sulfate [Combivent Respimat Inhal [place]] 4 gm IH TID PRN # 1 aer.w.adap 05/18/17 Metoprolol Succinate [Toprol XL -] 25 mg PO DAILY #30 tab.sr.24h 05/18/17 Prednisone 10 mg PO ASDIR #10 tablet 05/18/17
[2017-05-18 14:17] LABS: TOTAL PROTEIN,PLEURAL FLUID 1.792
[2017-05-18 15:11] LABS: PLEURAL FLUID APPEARANCE CLEAR; PLEURAL FLUID COLOR YELLOW; PLEURAL FLUID LYMPHOCYTES 66 %; PLEURAL FLUID MACROPHAGES 3 %; PLEURAL FLUID MESOTHELIAL 2 %; PLEURAL FLUID MONOCYTE 12 %; PLEURAL FLUID NEUTROPHIL 17 %; PLEURAL FLUID RBC 292 /mm3
[2017-05-18 16:00] LABS: CHLORIDE PLEURAL FLUID 115
[2017-05-19] MEDS ORDERED: FUROSEMIDE 40 MG TABLET (FP) PO SCH (10:00)
--- NOTE | 2017-05-19 16:21 | PATH ---
Cytology Non-Gynecological Report Patient Name: RENZO VERA [facility]. Rec. #: [id number] /Age/Gender: 1935 (Age: 81) / F Account: [id number] Location: 4 TELEMETRY U Taken: 05/18/2017 Received: 05/18/2017 Reported: 05/19/2017 Physicians: Torri Whiting M.D. Specimen(s) Received A: RIGHT PLEURAL FLUID B: RIGHT PLEURAL FLUID Clinical History Pleural effusion Final Diagnosis A & B. PLEURAL FLUID, RIGHT, THORACENTESIS: SATISFACTORY FOR EVALUATION. NO MALIGNANT CELLS IDENTIFIED. MESOTHELIAL CELLS AND ACUTE INFLAMMATORY INFILTRATE COMPRISED OF NUMEROUS NEUTROPHILS AND SCATERED LYMPHOCYTES PRESENT. Electronically Signed Chiara Pichardo M.D. Gross Description A. Approximately 30 cc of yellow fluid received fixed in 50% alcohol. Two cytofunnels and one cellblock prepared. B. Approximately 400 cc of yellow fluid received fresh. Two cytofunnels and one cellblock prepared.
== END 2017-05-18 15:00 | disposition home or self-care (01) | DRG 193 ==
LOC: JER 07:56 → JERBED 12:35 → J4W 21:11
PROVIDERS: ADMIT Hospitalist; ATTEND Internal Medicine
PROC: 0W993ZX Drainage of Right Pleural Cavity, Percutaneous Approach, Diagnostic (ICD-10-PCS; principal; 2017-05-18)
DX: J18.9 Pneumonia, unspecified organism (principal); J96.22 Acute and chronic respiratory failure with hypercapnia; J44.1 Chronic obstructive pulmonary disease with (acute) exacerbation; C15.9 Malignant neoplasm of esophagus, unspecified; I50.32 Chronic diastolic (congestive) heart failure; J90 Pleural effusion, not elsewhere classified; J44.0 Chronic obstructive pulmonary disease with (acute) lower respiratory infection; Z99.81 Dependence on supplemental oxygen; I48.91 Unspecified atrial fibrillation; Z87.891 Personal history of nicotine dependence; I10 Essential (primary) hypertension; E78.5 Hyperlipidemia, unspecified; Z95.0 Presence of cardiac pacemaker; F41.9 Anxiety disorder, unspecified; I25.10 Atherosclerotic heart disease of native coronary artery without angina pectoris; I11.0 Hypertensive heart disease with heart failure; Z79.01 Long term (current) use of anticoagulants; K21.9 Gastro-esophageal reflux disease without esophagitis; K27.9 Peptic ulcer, site unspecified, unspecified as acute or chronic, without hemorrhage or perforation; I73.9 Peripheral vascular disease, unspecified; R91.8 Other nonspecific abnormal finding of lung field
CPT/HCPCS: 36415; 36600; 71045-TC-FY; 71046-TC-FY; 71250-TC; 76942; 80048; 80053; 80162; 82042; 82150; 82438; 82550; 82803; 82945; 83615; 83735; 83880; 84100; 84157; 84311; 84484; 85025; 85027; 85610; 87040; 87070; 87075; 87086; 87102; 87116; 87205; 87206; 87210; 87899; 88108; 88305-TC; 89051; 93005; 93010; 94640; 94660; 94761; 99285-25; J1644

== ENCOUNTER 2017-07-15 11:20 | Day surgery (SDC) | payer OTHER ==
[2017-07-15 12:02] LABS: HEMATOCRIT 38.9 % (32.4-45.2); HEMOGLOBIN 12.7 GM/dL (10.7-15.3); LYMPH % 17.7 % (8-40); MCH 29.3 pg (25.7-33.7); MCHC 32.7 g/dl (32.0-36.0); MEAN CELL VOLUME 89.6 fl (80-96); MEAN PLT VOLUME 8.9 fl (7.5-11.1); MONO % 9.4 % (3.8-10.2); NEUT % 70.9 % (42.8-82.8); PLATELET COUNT 284 K/MM3 (134-434); RBC 4.35 M/mm3 (3.60-5.2); RDW 15.9 % (11.6-15.6)
[2017-07-15] MEDS ORDERED: ONDANSETRON 4 MG/2 ML VIAL IVPUSH PRN (12:07)
[2017-07-15] MEDS ORDERED: oxyCODONE HCL 5 MG TABLET PO PRN (12:07)
[2017-07-15] MEDS ORDERED: PROMETHAZINE HCL 25 MG/1 ML VIAL IVPUSH PRN (12:07)
[2017-07-15] MEDS ORDERED: LACTATED RINGERS SOLUTION 1,000 ML IV SCH (12:15)
[2017-07-15 12:23] LABS: INR 1.13 (0.82-1.09); PROTHROMBIN TIME (PATIENT) 12.8 SEC (9.7-13.0)
[2017-07-15 12:36] LABS: ALBUMIN 3.4 g/dl (3.4-5.0); ANION GAP 3 (8-16); BILIRUBIN,TOTAL 0.5 mg/dL (0.2-1.0); BLOOD UREA NITROGEN 12 mg/dL (7-18); CALCIUM 8.8 mg/dL (8.5-10.1); CHLORIDE 107 mmol/L (98-107); CO2 32 mmol/L (21-32); CREATININE 1.1 mg/dL (0.55-1.02); GLUCOSE,RANDOM 89 mg/dL (74-106); POTASSIUM 4.1 mmol/L (3.5-5.1); SGOT/AST 28 U/L (15-37); SGPT/ALT 25 U/L (12-78); SODIUM 142 mmol/L (136-145)
[2017-07-15 12:38] LABS: ALK PHOS 96 U/L (45-117); TOT PROT 6.5 g/dl (6.4-8.2)
--- NOTE | 2017-07-15 12:47 | EKG ---
Test Reason : Blood Pressure : / mmHG Vent. Rate : 070 BPM Atrial Rate : 069 BPM P-R Int : 000 ms QRS Dur : 150 ms QT Int : 418 ms P-R-T Axes : 000 -79 096 degrees QTc Int : 451 ms ELECTRONIC VENTRICULAR PACEMAKER WHEN COMPARED WITH ECG OF 09-MAY-2017 08:19, VENT. RATE HAS INCREASED BY 2 BPM Confirmed by CATHY BLACK MD ([id number]) on 07/15/2017 12:47:05 PM Referred By: Srinivas Stallings Confirmed By:CATHY BLACK MD
[2017-07-15 12:49] VITALS: BMI 21.9
[2017-07-15] MEDS ORDERED: ACETYLCYSTEINE 20% 200MG/ML 4 ML VIAL *FOR ORAL / INH USE ONLY NEB ONE (13:19)
--- NOTE | 2017-07-15 13:21 | HP ---
History & Physical Update - History History: No Change - Physical Physical: No Change - Assessment Assessment: No Change - Plan Plan: No Change
[2017-07-15] MEDS ORDERED: ALBUTEROL SO4 8 GM HFA INHALER IH ONE (13:54)
[2017-07-15] MEDS ORDERED: PROPOFOL 20 ML ONE (13:55)
[2017-07-15] MEDS ORDERED: SUCCINYLCHOLINE CHLORIDE 200 MG/10 ML VIAL ONE (13:57)
[2017-07-15] MEDS ORDERED: DEXAMETHASONE SOD PHOSPHATE 4 MG/1 ML VIAL ONE (14:14)
[2017-07-15] MEDS ORDERED: ONDANSETRON 4 MG/2 ML VIAL ONE (14:14)
--- NOTE | 2017-07-15 14:31 | PROC ---
Procedure Note Procedure: BRONCHOSCOPY NOTE After discussing the risks and benefits of the procedure including bleeding and pneumothorax, informed consent was obtained. Pt was placed under general anesthesia and intubated with a size 8.0 ETT by anesthesiologist. [employer] video bronchoscope was passed via the ETT and the airways were examined down to the subsegmental level. The holland was sharp, there were no endobronchial lesions noted on the left. In the bronchus intermedius, there was an irregular, vascular endobronchial mass peripherally and a white, irregular vascular mass just distal and obstructing the bronchus. Forceps biopsies and washes were taken. Area visualized until hemostasis achieved. Bronchoscope then withdrawn and procedure terminated. Pre-op Dx: lung mass Post-op Dx: r/o lung cancer Plan: - f/u cytology, cultures and pathology Srinivas Stallings MD
[2017-07-15] MEDS ORDERED: ALBUTEROL SO4 0.083% IH SOL 2.5 MG/3 ML VIAL.NEB. NEB ONE (15:00)
[2017-07-15 16:59] VITALS: TEMP 98.2
[2017-07-15 18:04] VITALS: BP 132/55; PULSE 92
--- NOTE | 2017-07-21 09:57 | PATH ---
Surgical Pathology Report Patient Name: RENZO VERA [facility]. Rec. #: [id number] /Age/Gender: 1935 (Age: 81) / F Account: [id number] Location: [facility] SURGICAL Taken: 07/15/2017 Received: 07/16/2017 Reported: 07/21/2017 Physicians: Neal Treviño M.D. Specimen(s) Received RIGHT MIDDLE LOBE BX Clinical History Rule out lung cancer Final Diagnosis ENDOBRONCHIAL MASS, MIDDLE LOBE, RIGHT, BIOPSY: HIGH GRADE NEUROENDOCRINE TUMOR, SMALL CELL CARCINOMA. Comment: Histologic sections show sheets of small to medium sized neoplastic cells with scant cytoplasm, salt and pepper chromatin, nuclear molding, brisk mitosis, and apoptosis. Large areas of necrosis are present. Immunohistochemical stains performed and interpreted at [facility] show the tumor is positive for cytokeratin AE1/3, synaptophysin, TTF-1, and p63, while negative for chromogranin and CK7. Additional immunohistochemical stains performed at [place], [place] ([id number]) and interpreted at [facility] show the tumor is positive for CD56. Estimated proliferative marker, ki-67, is high and labels ~50% of tumor nuclei. Overall histomorphology and immunophenotype supports the above diagnosis. See concurrent bronchial washings ([id number]). Case seen interdepartmentally. Findings discussed with Dr. Stallings. Electronically Signed Chiara Pichardo M.D. Addendum Reported: 07/21/2017 Addendum Diagnosis Additional immunohistochemical stains performed and interpreted at [facility] show the tumor is negative for CD45 and CK20. Immunohistochemical stains performed at [place], [place] ([id number]) show the tumor is negative for p40, CK5/6. Results support the diagnosis. Chiara Pichardo M.D. Addendum Reported: 09/17/2017 Addendum Diagnosis PAS fungal special stain highlight fungal forms within areas of necrosis. Comment: Suggest correlation with microbiology studies/fungal culture. Findings discussed with Dr. Van. Chiara Pichardo M.D. Gross Description Received in formalin, labeled "bronchial biopsy right middle lobe" are multiple hernandez, irregular portions of soft tissue measuring 0.4 cm. in greatest dimension. The specimens are submitted in toto in one cassette. [facility]/07/16/2017 [facility]07/16/2017
--- NOTE | 2017-07-21 10:24 | PATH ---
Cytology Non-Gynecological Report Patient Name: RENZO VERA [facility]. Rec. #: [id number] /Age/Gender: 1935 (Age: 81) / F Account: [id number] Location: [facility] SURGICAL Taken: 07/15/2017 Received: 07/16/2017 Reported: 07/21/2017 Physicians: Srinvias Stallings M.D. Specimen(s) Received BRONCHIAL WASHINGS Clinical History Lung/endobronchial mass Final Diagnosis BRONCHIAL WASHING, RIGHT, MIDDLE LOBE, FOR CYTOLOGY: SATISFACTORY FOR EVALUATION. POSITIVE FOR MALIGNANT CELLS. HIGH GRADE NEUROENDOCRINE TUMOR, SMALL CELL CARCINOMA. MALIGNANT CELLS WITH SCANT CYTOPLASM, SALT AND PEPPER CHROMATIN, AND NUCLEAR MOLDING DISPERSED AGGREGATES IN A BACKGROUND OF BRONCHIAL CELLS, SCATTERED LYMPHOCYTES AND ALVEOLAR MACROPHAGES. Comment: Findings are best seen in the cell block material. Immunohistochemical stains performed and interpreted at [facility] show the tumor is positive for synaptophysin, while negative for chromogranin. Concurrent endobronchial biopsy is reviewed and appears morphologically similar. Findings discussed with Dr. Stallings. Case seen in interdepartmentally. See concurrent biopsy ([id number]). Electronically Signed Chiara Pichardo M.D. Gross Description Approximately 30 cc of yellow fluid received fixed in 50% alcohol. Two cytofunnels and one cellblock prepared.
== END 2017-07-15 18:07 | disposition home or self-care (01) ==
LOC: JASU-SURG 11:20
PROVIDERS: ATTEND Internal Medicine
PROC: 0B958ZX Drainage of Right Middle Lobe Bronchus, Via Natural or Artificial Opening Endoscopic, Diagnostic (ICD-10-PCS; 2017-07-15)
PROC: 0BB58ZX Excision of Right Middle Lobe Bronchus, Via Natural or Artificial Opening Endoscopic, Diagnostic (ICD-10-PCS; principal; 2017-07-15 13:00)
DX: C34.2 Malignant neoplasm of middle lobe, bronchus or lung (principal)
CPT/HCPCS: 36415; 80053; 85025; 85610; 87070; 87102; 87116; 87205; 87206; 87210; 88108; 88305-TC; 88312-TC; 88341-TC; 88342-TC; 93005; 93010; 94760

== ENCOUNTER 2017-09-08 05:03 | Inpatient (IN) | payer OTHER ==
--- NOTE | 2017-09-08 05:16 | PDOC ---
Attending Attestation - Resident Resident Name: Kaushik Camargo - ED Attending Attestation I have performed the following: I have examined & evaluated the patient, The case was reviewed & discussed with the resident, I agree w/resident's findings & plan, Exceptions are as noted <Sheldon Chang - Last Filed: 09/08/17 05:15> - HPI HPI: 09/08/17 05:33 The patient is a 81 year old female with past medical history of COPD (non- compliant w/ home O2) ,asthma, Afib (on Eliquis), CAD, PAC s/p RLE bypass, PUD, GERD and R. side Lung CA diagnosed s/p bronchoscopy by Dr. Stallings on 07/15/2017 presents to the emergency department via EMS in respiratory distress. The patient presents with progressively worsening shortness of breath for the past 3 days, accompanied with chills, rhinorrhea and cough, denies fever. The patient reports additional concern of chest pain and abdominal pain that presents with coughing. Allergies: Melatonin, Vancomycin, Zolpidem, Zolpidem tartrate. Past surgical/procedure history: Ulcer perforation repair. Appendectomy, PPM ( 2010) and bronchoscopy. Social history: Former smoker. No reported alcohol or drug use. PCP: Dr. Larson Pattern Fitter: Dr. Torres Tobacco Farmworker: Dr. Stallings. Code status: As per past records, patient is FULL CODE. - Physicial Exam PE: 09/08/17 06:54 General: Appearance: Yes: Appropriately Dressed Negative: Intoxicated HEENT: positive: EOMI, MARU, Normal ENT Inspection, Normal Voice, TMs Normal, Pharynx Normal. negative: Pale Conjunctivae, Photophobia, Scleral Icterus (R), Scleral Icterus (L) Neck: positive: Trachea midline, Normal Thyroid, Supple. negative: Tender, Rigid, Carotid bruit, Stridor, Lymphadenopathy (R), Lymphadenopathy (L), Thyromegaly Respiratory/Chest: positive: (+) Decreased breath sounds bilaterally, greater on the R. side negative: Chest Tender, Crackles, Rales, Rhonchi, Stridor, Wheezing, Dullness Cardiovascular: positive: tachycardia. Normal S1, S2. negative: Edema, JVD, Murmur, Bradycardia. Vascular Pulses: Dorsalis-Pedis (R): 2+, Doralis-Pedis (L): 2+ Gastrointestinal/Abdominal: positive: Normal Bowel Sounds, Flat, Soft. negative : Tender, Organomegaly, Pulsatile Mass, Increased Bowel Sounds, Decreased BS, Distended, Guarding, Rebound, Hernia, Hepatomegaly, Spleenomegaly Lymphatic: negative: Adenopathy, Tenderness Musculoskeletal: positive: Normal Inspection. negative: CVA Tenderness, Decreased Range of Motion Extremity: positive: Normal Capillary Refill, Normal Inspection, Normal Range of Motion, Pelvis Stable. negative: Tender, Pedal Edema, Swelling, Erythema Integumentary: positive: Normal Color, Dry, Warm. negative: Cyanotic, Erythema , Jaundice, Rash Neurologic: positive: command post superintendent II-XII NML intact, Fully Oriented, Alert, Normal Mood/ Affect, Motor Strength 5/5. negative: EOM Palsy, Facial Droop, Sensory Deficit - Medical Decision Making 09/08/17 05:35 Documentation prepared by Carola Briceno, acting as medical front desk specialist for Sheldon Chang MD. <Carola Briceno - Last Filed: 09/08/17 06:55>
[2017-09-08] MEDS ORDERED: methylPREDNISolone NA SUCC 125 MG/2 ML VIAL IVPB ONE (05:17)
[2017-09-08] MEDS ORDERED: ALBUTEROL SO4 2.5/IPRATROPIUM 0.5 INH SOL 3 ML VIAL.NEB. NEB ONE ×2 (05:18→05:55)
--- NOTE | 2017-09-08 05:26 | PDOC ---
History of Present Illness - General Chief Complaint: Shortness of Breath Stated Complaint: DIFFICULTY BREATHING History Source: Patient Exam Limitations: No Limitations - History of Present Illness Initial Comments: 09/08/17 05:18 Patient is an 81F with lung cancer (recently diagnosed, not on chemo), COPD, afib, CAD, PAD, PUD, GERD, and anxiety here today complaining of shortness of breath. She states that she's had worsening shortness of breath over the past three days with associated rhinorrhea and cough. Patient endorses associated chest pain with coughing. Endorses chills, denies fever, nausea, vomiting. EMS reports 02 sats in the 80s and tachypnea to 30s/40s that improved to sats in the mid 90s on a non-rebreather with tachypnea in the high 20s. No medications given. Past History - Past Medical History Allergies/Adverse Reactions: Allergies Allergy/AdvReac Type Severity Reaction Status Date / Time melatonin Allergy Mild Nausea Verified 09/08/17 05:14 vancomycin AdvReac Mild Nausea Verified 09/08/17 05:14 zolpidem AdvReac Unknown Verified 09/08/17 05:14 zolpidem tartrate AdvReac Unknown Verified 09/08/17 05:[address] [[address] [facility]] Home Medications: Ambulatory Orders Ascorbic Acid [Vitamin C -] 500 mg PO DAILY 05/09/17 Atorvastatin Ca [Lipitor] 10 mg PO HS 05/09/17 Cholecalciferol (Vitamin D3) [Vitamin D3] 5,000 unit PO DAILY 05/09/17 Cyanocobalamin [Vitamin B12 -] 1,000 mcg PO DAILY 05/09/17 Digoxin [Lanoxin -] 0.125 mg PO DAILY 05/09/17 Diltiazem HCl [Tiazac] 180 mg PO DAILY 05/09/17 Fluticasone/Vilanterol [Breo Ellipta 100-25 Mcg INH] 1 each IH DAILY 05/09/17 Hydralazine HCl 25 mg PO BID 05/09/17 Magnesium Oxide [Magnesium] 400 mg PO BID 05/09/17 Pyridoxine HCl (B-6) [Vitamin B6 -] 50 mg PO DAILY 05/09/17 Sertraline HCl 25 mg PO DAILY 05/09/17 Valsartan 320 mg PO DAILY 05/09/17 oxyCODONE HCL [Roxicodone -] 5 mg PO BID PRN 05/09/17 Apixaban [Eliquis -] 2.5 mg PO BID #60 tablet 05/18/17 Furosemide [Lasix -] 40 mg PO Q2D tablet 05/18/17 Metoprolol Succinate [Toprol XL -] 25 mg PO DAILY #30 tab.sr.24h 05/18/17 Albuterol Sulfate Inhaler - [Ventolin Hfa Inhaler -] 1 - 2 inh PO PRN PRN Sucralfate [Carafate] 1 gm PO DAILY 07/15/17 Anemia: No Asthma: Yes Cancer: No Cardiac Disorders: Yes (PPM, AFIB) CVA: No COPD: Yes CHF: Yes Dementia: No Diabetes: No GI Disorders: Yes (REFLUX, GASTRIC/PERF BLEEDING ULCER, GERD) Disorders: Yes (URINARY DRIBBLING) HTN: Yes Hypercholesterolemia: Yes Liver Disease: No Seizures: No Thyroid Disease: No - Surgical History Abdominal Surgery: Yes (PERF BLEEDING ULCER) Appendectomy: Yes Cardiac Surgery: Yes (PPM 2010) Cholecystectomy: No Lung Surgery: No Neurologic Surgery: No Orthopedic Surgery: No - Immunization History Td Vaccination: Yes Immunization Up to Date: Yes - Suicide/Smoking/Psychosocial Hx Smoking Status: No Smoking History: Never smoked Have you smoked in the past 12 months: No Number of Cigarettes Smoked Daily: 0 If you are a former smoker, when did you quit?: 2002 Information on smoking cessation initiated: No 'Breaking Loose' booklet given: 12/11/13 Hx Alcohol Use: No Drug/Substance Use Hx: No Substance Use Type: None Hx Substance Use Treatment: No Review of Systems - Review of Systems Comments:: 09/08/17 05:26 GENERAL/CONSTITUTIONAL: No fever +chills. No weakness. HEAD, EYES, EARS, NOSE AND THROAT: No change in vision. +rhinorrhea. No sore throat. CARDIOVASCULAR: +chest pain +shortness of breath RESPIRATORY: +cough, +wheezing, no hemoptysis. GASTROINTESTINAL: No nausea, vomiting, diarrhea or constipation. GENITOURINARY: No dysuria, frequency, or change in urination. MUSCULOSKELETAL: No joint or muscle swelling or pain. No neck or back pain. SKIN: No rash NEUROLOGIC: No headache, vertigo, loss of consciousness, or change in strength/ sensation. ENDOCRINE: No increased thirst. No abnormal weight change HEMATOLOGIC/LYMPHATIC: No anemia, easy bleeding, or history of blood clots. ALLERGIC/IMMUNOLOGIC: No hives or skin allergy. *Physical Exam - Vital Signs Last Vital Signs Temp Pulse Resp BP Pulse Ox 97.9 F 74 27 H 168/100 99 09/08/17 05:06 09/08/17 05:06 09/08/17 05:06 09/08/17 05:06 09/08/17 05:06 - Physical Exam Comments: 09/08/17 05:27 GENERAL: Awake, alert, and fully oriented, in respiratory distsress HEAD: No signs of trauma, normocephalic, atraumatic EYES: PERRLA, EOMI, sclera anicteric, conjunctiva clear ENT: Auricles normal inspection, hearing grossly normal, nares patent, oropharynx clear without exudates. Moist mucosa NECK: Normal ROM, supple, no lymphadenopathy, JVD, or masses LUNGS: Speaking short sentences, using accessory muscles, decreased breath sounds bilaterally HEART: Regular rate and rhythm, normal S1 and S2, no murmurs, rubs or gallops, peripheral pulses normal and equal bilaterally. ABDOMEN: Soft, nontender, normoactive bowel sounds. No guarding, no rebound. No masses EXTREMITIES: Normal inspection, Normal range of motion, no edema. No clubbing or cyanosis. NEUROLOGICAL: Cranial nerves II through XII grossly intact. Normal speech, no focal sensorimotor deficits SKIN: Warm, Dry, normal turgor, no rashes or lesions noted. ED Treatment Course - LABORATORY CBC & Chemistry Diagram: 09/08/17 05:40 09/08/17 05:40 - RADIOLOGY Radiology Studies Ordered: Category Date Time Status CHEST X-RAY PORTABLE* [RAD] Stat Radiology 09/08/17 05:09 Ordered Medical Decision Making - Critical Care Time Total Critical Care Time (minutes): 35 Critical Care Statement: The care of this patient involved high complexity decision making to prevent further life threatening deterioration of the patient 's condition and/or to evaluate & treat vital organ system(s) failure or risk of failure. - Medical Decision Making 09/08/17 05:29 Patient is 81F with lung cancer (recently diagnosed, not on chemo), COPD, afib, CAD, PAD, PUD, GERD, and anxiety here today with respiratory distress. Vital signs notable for tachypnea. DDx is weighted towards respiratory process, including COPD exacerbation, pneumonia. Have lower suspicion for cardiac process such as ACS, arrhythmia or PE given lack of tachycardia, reproducible chest pain. Patient placed on bipap due to accessory muscle use. Duo nebs, mag, steroids given. Septic workup initiated. Patient will be admitted, tele v icu, dependent on respiratory status. Patient is full code. 09/08/17 05:37 After 15 minutes of bipap patient's respiratory status is improving, vbg yet to be drawn. 09/08/17 06:01 CXR shows right sided infiltrate vs effusion, left side shows possible pneumo vs skin fold artifact. Bedside ultrasound demonstrates lung sliding. Believe that lung markings extend beyond line seen, but not certain. Repeat CXR ordered. Given vanc/zosyn due to active lung cancer, making immune status compromised and possible post-obstructive pneumonia. If patient's respiratory status continues to improve, will attempt to get CT scan of chest. Otherwise will defer. 09/08/17 06:21 VBG of 7.22 pCO2 of 80 noted, like acute on chronic respiratory acidosis. Patient is breathing comfortably on bipap, rate of 18. 09/08/17 06:25 EKG shows ventricular paced rhythm, rate of 69. Sgarbossa negaitve. QRS 152. QTc 473. Left axis. 09/08/17 06:27 With white count, patient now septic. Will fluid resuscitate gently with 1L given blood pressures and tenuous respiratory status. CMP/Troponin hemolyzed. 09/08/17 06:52 Lactate 2.4. Signed out to Dr Razo, pending repeat CXR, ABG, CMP, Trop, 2nd lactate *DC/Admit/Observation/Transfer Diagnosis at time of Disposition: Pneumonia - Discharge Dispostion Condition at time of disposition: Critical - Referrals Referrals: Maxim Larson MD [Primary Care Provider] - - Patient Instructions - Post Discharge Activity
[2017-09-08] MEDS: ALBUTEROL SO4 2.5/IPRATROPIUM 0.5 INH SOL 3 ML VIAL.NEB. NEB SCH ×2 (05:33→06:04)
[2017-09-08] MEDS ORDERED: methylPREDNISolone NA SUCC 125 MG/2 ML VIAL ONE (05:55)
[2017-09-08 06:00] LABS: BASO % 0.2 % (0-2.0); EOS % 0.1 % (0-4.5); HEMATOCRIT 42.7 % (32.4-45.2); HEMOGLOBIN 14.1 GM/dL (10.7-15.3); LYMPH % 3.8 % (8-40); MCH 30.1 pg (25.7-33.7); MCHC 32.9 g/dl (32.0-36.0); MEAN CELL VOLUME 91.4 fl (80-96); MONO % 6.3 % (3.8-10.2); NEUT % 89.6 % (42.8-82.8); PLATELET COUNT 285 K/MM3 (134-434); RBC 4.67 M/mm3 (3.60-5.2); RDW 16.3 % (11.6-15.6); WHITE BLOOD COUNT 13.6 K/mm3 (4.0-10.0)
[2017-09-08] MEDS ORDERED: MAGNESIUM SULFATE IN WATER 2 GM/50 ML IVPB IVPB ONE (06:00)
[2017-09-08] MEDS ORDERED: PIPERACILLIN/TAZOB 3.375 GM 3.375 GM in DEXTROSE 5%-WATER - 50 ML IVPB ONE (06:01)
[2017-09-08] MEDS ORDERED: VANCOMYCIN 1,000 MG in DEXTROSE 5%-WATER - 250 ML IVPB ONE (06:01)
[2017-09-08] MEDS ORDERED: VANCOMYCIN 1 GRAM (PRE-DOCKED) 1,000 MG/250 ML BAG IVPB ONE (06:07)
[2017-09-08] MEDS ORDERED: PIPERACILLIN/TAZOB 3.375 GM 3.375 GM/50 ML BAG IVPB ONE (06:08)
[2017-09-08 06:10] LABS: VENOUS PO2 22.2 mmHg (28-48)
[2017-09-08 06:12] LABS: VENOUS PC02 82.4 mmHg (38-52); VENOUS PH 7.22 (7.32-7.42)
[2017-09-08] MEDS ORDERED: SODIUM CHLORIDE 1,000 ML IV STA ×2 (06:28→06:32)
[2017-09-08 06:29] LABS: INR 1.34 (0.83-1.09); PROTHROMBIN TIME (PATIENT) 15.1 SEC (9.7-13.0)
[2017-09-08 06:31] LABS: ACTIVATED PTT 27.8 SECONDS (25.2-36.5)
[2017-09-08 07:11] LABS: ARTERIAL BLD GAS O2 SATURATION 98.8 % (90-98.9); ARTERIAL BLOOD GAS BASE EXCESS 0.9 meq/l (-2-2); ARTERIAL BLOOD GAS PCO2 56.5 mmHg (35-45); ARTERIAL BLOOD GAS pH 7.31 (7.35-7.45); CARBOXYHEMOGLOBIN 1.9 gm% (0.5-2.0)
[2017-09-08 07:13] LABS: ALLENS TEST POSITIVE
--- NOTE | 2017-09-08 07:16 | PDOC ---
*Physical Exam - Vital Signs Last Vital Signs Temp Pulse Resp BP Pulse Ox 97.6 F 69 18 155/89 100 09/08/17 06:26 09/08/17 06:26 09/08/17 06:26 09/08/17 06:26 09/08/17 06:26 ED Treatment Course - LABORATORY CBC & Chemistry Diagram: 09/08/17 05:40 09/08/17 07:37 - ADDITIONAL ORDERS Additional order review: Laboratory Results 09/08/17 09/08/17 09/08/17 05:40 05:40 05:40 PT with INR INR PTT (Actin FS) VBG pH POC VBG pCO2 POC VBG pO2 Mixed VBG HCO3 Sodium Cancelled Potassium Cancelled Chloride Cancelled Carbon Dioxide Cancelled Anion Gap Cancelled BUN Cancelled Creatinine Cancelled Creat Clearance w eGFR Cancelled Random Glucose Cancelled Lactic Acid 2.4 H* Calcium Cancelled Total Bilirubin Cancelled AST Cancelled ALT Cancelled Alkaline Phosphatase Cancelled Troponin I Cancelled Total Protein Cancelled Albumin Cancelled 09/08/17 09/08/17 05:40 05:40 PT with INR 15.10 H* INR 1.34 PTT (Actin FS) 27.8 VBG pH 7.22 L* D POC VBG pCO2 82.4 H* D POC VBG pO2 22.2 L Mixed VBG HCO3 32.3 H Sodium Potassium Chloride Carbon Dioxide Anion Gap BUN Creatinine Creat Clearance w eGFR Random Glucose Lactic Acid Calcium Total Bilirubin AST ALT Alkaline Phosphatase Troponin I Total Protein Albumin 09/08/17 05:40 RBC 4.67 MCV 91.4 MCHC 32.9 RDW 16.3 H MPV 10.0 D Neutrophils % 89.6 H D Lymphocytes % 3.8 L D Monocytes % 6.3 Eosinophils % 0.1 D Basophils % 0.2 - Medications Given in the ED: ED Medications Discontinued Medications Generic Name Dose Route Start Last Admin Trade Name Freq PRN Reason Stop Dose Admin Albuterol/Ipratropium 1 amp 09/08/17 05:15 09/08/17 06:04 Duoneb - NEB 09/08/17 06:01 1 amp Q15M REBECCA Administration Magnesium Sulfate 2 gm in 50 mls @ 100 mls/hr 09/08/17 06:00 09/08/17 06:03 Magnesium Sulf 2 G/50 Ml Bag IVPB 07/31/18 06:29 100 mls/hr ONCE ONE Administration Piperacillin Sod/Tazobactam 50 mls @ 100 mls/hr 09/08/17 06:01 09/08/17 06:14 Sod 3.375 gm/ Dextrose IVPB 09/08/17 06:30 100 mls/hr ONCE ONE Administration Protocol Methylprednisolone Sodium Succinate 125 mg 09/08/17 05:17 09/08/17 05:44 Solu-Medrol - IVPB 09/08/17 05:18 125 mg ONCE ONE Administration Medical Decision Making - Medical Decision Making Signed out by Dr. Camargo. Pt improved on BIPAP, resting comfortably. First CMP and troponin hemolyzed. First lactate 2.4, 2nd will be drawn. Vanc and Zosyn and 1L fluid (slow rate) started. WBC 13.6, pH 7.2, CO2 82. First x-ray showed vertical line over L lung (concern for pneumothorax). Repeat portable x-ray done. 09/08/17 07:05 Repeat labs drawn and sent to labs. Will call ICU when labs return. Pt still comfortable in bed. Repeat x-ray does not show any vertical line over L lung. 09/08/17 07:[address] Stallings to admit to ICU, awaiting call back. 2nd lactate 1.6, improved from 2.4. Troponin 0.03. 09/08/17 08:[address] for ICU. 09/08/17 09:[address] Stallings. Admission order will be placed for ICU. 09/08/17 09:34 *DC/Admit/Observation/Transfer Diagnosis at time of Disposition: Respiratory distress, COPD exacerbation, BiPAP (biphasic positive airway pressure) dependence Pneumonia Qualifiers: Pneumonia type: due to unspecified organism Laterality: right Lung location: unspecified part of lung Qualified Code(s): J18.9 - Pneumonia, unspecified organism Sepsis Qualifiers: Sepsis type: sepsis due to unspecified organism Qualified Code(s): A41.9 - Sepsis, unspecified organism Lung cancer Qualifiers: Laterality: right Lung location: unspecified part of lung Qualified Code(s): C34.91 - Malignant neoplasm of unspecified part of right bronchus or lung - Discharge Dispostion Condition at time of disposition: Improved Decision to Admit order: Yes - Referrals Referrals: Maxim Larson MD [Primary Care Provider] - - Patient Instructions - Post Discharge Activity
[2017-09-08 08:33] LABS: ALBUMIN 2.8 g/dl (3.4-5.0); ANION GAP 8 (8-16); BILIRUBIN,TOTAL 0.5 mg/dL (0.2-1.0); BLOOD UREA NITROGEN 15 mg/dL (7-18); CALCIUM 8.4 mg/dL (8.5-10.1); CHLORIDE 105 mmol/L (98-107); CO2 28 mmol/L (21-32); CREATININE 0.8 mg/dL (0.55-1.02); GLUCOSE,RANDOM 183 mg/dL (74-106); POTASSIUM 3.7 mmol/L (3.5-5.1); SGOT/AST 36 U/L (15-37); SGPT/ALT 27 U/L (12-78); SODIUM 141 mmol/L (136-145); TOT PROT 5.6 g/dl (6.4-8.2)
[2017-09-08 08:35] LABS: ALK PHOS 83 U/L (45-117)
[2017-09-08] MEDS ORDERED: ACETAMINOPHEN 325 MG TABLET (FP) PO PRN (12:54)
--- NOTE | 2017-09-08 13:08 | PN ---
Teaching Attending Note Name of Resident: Shaquille Archer ATTENDING PHYSICIAN STATEMENT I saw and evaluated the patient. I reviewed the resident's note and discussed the case with the resident. I agree with the resident's findings and plan as documented. SUBJECTIVE: Patient seen and examined in the ICU. Awake and alert. Known left small cell lung CA. Presents with increasing SOB. No fever or chills. No hemoptysis. No travel history or sick contacts. CXR: Large right pleural effusion. Intake & Output 09/05/17 09/06/17 09/07/17 09/08/17 23:59 23:59 23:59 23:59 Intake Total 750 Balance 750 Weight 114 lb 13.773 oz Last Vital Signs Temp Pulse Resp BP Pulse Ox 98.5 F 91 H 18 155/60 98 09/08/17 10:37 09/08/17 10:37 09/08/17 10:37 09/08/17 10:37 09/08/17 10:37 Active Medications Acetaminophen (Tylenol -) 650 mg PO Q4H PRN PRN Reason: PAIN LEVEL 1-5 Ascorbic Acid (Vitamin C -) 500 mg PO DAILY [facility] Atorvastatin Calcium (Lipitor -) 10 mg PO HS [facility] Chlorhexidine Gluconate (Hibiclens For Decolonization -) 1 applic TP HS REEBCCA Cyanocobalamin (Vitamin B12 -) 1,000 mcg PO DAILY [facility] Digoxin (Lanoxin -) 0.125 mg PO DAILY [facility] Furosemide (Lasix -) 40 mg PO Q2D REBECCA Hydralazine HCl (Apresoline -) 25 mg PO BID [facility]BE[facility] Sodium Chloride (Normal Saline -) 1,000 mls @ 75 mls/hr IV ASDIR STA Stop: 09/08/17 19:47 Last Admin: 09/08/17 06:45 Dose: 75 mls/hr Magnesium Oxide (Mag-Ox -) 400 mg PO BID REBECCA Metoprolol Succinate (Toprol Xl -) 25 mg PO DAILY [facility] Mupirocin (Bactroban Ointment (For Decolonization) -) 1 applic NS BID REBECCA Stop: 09/13/17 21:59 Non-Formulary Medication (Cholecalciferol (Vitamin D3) [Vitamin D3]) 5,000 unit PO DAILY [facility] Non-Formulary Medication (Diltiazem Hcl [Tiazac]) 180 mg PO DAILY [facility] Non-Formulary Medication (Fluticasone/Vilanterol [Breo Ellipta 100-25 Mcg Inh]) 1 each IH DAILY [facility] Non-Formulary Medication (Valsartan [Valsartan]) 320 mg PO DAILY [facility] Oxycodone HCl (Roxicodone -) 5 mg PO Q4H PRN PRN Reason: PAIN LEVEL 6-10 Pyridoxine HCl (Vitamin B6 -) 50 mg PO DAILY [facility] Sertraline HCl (Zoloft -) 25 mg PO DAILY [facility] Sucralfate (Carafate Oral Suspension -) 1 gm PO DAILY [facility] GENERAL: Awake, alert, and oriented, Mildly tachypneic HEAD: No signs of trauma, normocephalic, atraumatic EYES: PERRLA, EOMI, sclera anicteric, conjunctiva clear ENT: Auricles normal inspection, hearing grossly normal, nares patent, oropharynx clear without exudates. Moist mucosa NECK: Normal ROM, supple, no lymphadenopathy, JVD, or masses LUNGS: decreased BS on the right, (-) wheeze HEART: S1 and S2, no murmurs, rubs or gallops ABDOMEN: Soft, nontender, normoactive bowel sounds. No guarding, no rebound. No masses EXTREMITIES: Normal inspection, Normal range of motion, no edema. No clubbing or cyanosis. NEUROLOGICAL: Non-focal SKIN: Warm, Dry, normal turgor, no rashes or lesions noted. Laboratory Results - last 24 hr 09/08/17 09/08/17 09/08/17 05:40 05:40 05:40 WBC 13.6 H RBC 4.67 Hgb 14.1 Hct 42.7 MCV 91.4 MCH 30.1 MCHC 32.9 RDW 16.3 H Plt Count 285 MPV 10.0 D Absolute Neuts (auto) 12.2 Neutrophils % 89.6 H D Lymphocytes % 3.8 L D Monocytes % 6.3 Eosinophils % 0.1 D Basophils % 0.2 Nucleated RBC % 0 PT with INR 15.10 H* INR 1.34 PTT (Actin FS) 27.8 Puncture Site ABG pH ABG pCO2 at Pt Temp ABG pO2 at Pt Temp ABG HCO3 ABG O2 Sat (Measured) ABG O2 Content ABG Base Excess Gil Test VBG pH 7.22 L* D POC VBG pCO2 82.4 H* D POC VBG pO2 22.2 L Mixed VBG HCO3 32.3 H Carboxyhemoglobin Methemoglobin O2 Delivery Device Oxygen Flow Rate Vent Rate Mechanical Rate Pressure Support Vent Sodium Potassium Chloride Carbon Dioxide Anion Gap BUN Creatinine Creat Clearance w eGFR Random Glucose Lactic Acid Calcium Total Bilirubin AST ALT Alkaline Phosphatase Creatine Kinase Troponin I Total Protein Albumin 09/08/17 09/08/17 09/08/17 05:40 05:40 05:40 WBC RBC Hgb Hct MCV MCH MCHC RDW Plt Count MPV Absolute Neuts (auto) Neutrophils % Lymphocytes % Monocytes % Eosinophils % Basophils % Nucleated RBC % PT with INR INR PTT (Actin FS) Puncture Site ABG pH ABG pCO2 at Pt Temp ABG pO2 at Pt Temp ABG HCO3 ABG O2 Sat (Measured) ABG O2 Content ABG Base Excess Gil Test VBG pH POC VBG pCO2 POC VBG pO2 Mixed VBG HCO3 Carboxyhemoglobin Methemoglobin O2 Delivery Device Oxygen Flow Rate Vent Rate Mechanical Rate Pressure Support Vent Sodium Cancelled Potassium Cancelled Chloride Cancelled Carbon Dioxide Cancelled Anion Gap Cancelled BUN Cancelled Creatinine Cancelled Creat Clearance w eGFR Cancelled Random Glucose Cancelled Lactic Acid 2.4 H* Calcium Cancelled Total Bilirubin Cancelled AST Cancelled ALT Cancelled Alkaline Phosphatase Cancelled Creatine Kinase Troponin I Cancelled Total Protein Cancelled Albumin Cancelled 09/08/17 09/08/17 09/08/17 07:00 07:37 07:37 WBC RBC Hgb Hct MCV MCH MCHC RDW Plt Count MPV Absolute Neuts (auto) Neutrophils % Lymphocytes % Monocytes % Eosinophils % Basophils % Nucleated RBC % PT with INR INR PTT (Actin FS) Puncture Site Right brachial ABG pH 7.31 L ABG pCO2 at Pt Temp 56.5 H D ABG pO2 at Pt Temp 125.0 H D ABG HCO3 27.7 H ABG O2 Sat (Measured) 98.8 ABG O2 Content 17.7 ABG Base Excess 0.9 Gil Test Positive VBG pH POC VBG pCO2 POC VBG pO2 Mixed VBG HCO3 Carboxyhemoglobin 1.9 Methemoglobin 1.1 O2 Delivery Device Bipap Oxygen Flow Rate 50% Vent Rate 14 Mechanical Rate Bipap Pressure Support Vent 14/6 Sodium 141 Potassium 3.7 Chloride 105 Carbon Dioxide 28 Anion Gap 8 BUN 15 Creatinine 0.8 Creat Clearance w eGFR > 60 Random Glucose 183 H Lactic Acid 1.6 Calcium 8.4 L Total Bilirubin 0.5 AST 36 ALT 27 Alkaline Phosphatase 83 Creatine Kinase 99 Troponin I 0.03 Total Protein 5.6 L Albumin 2.8 L IMP: Suspected large Malignant Right effusion due to Small Cell CA (?) PNA COPD AFib CAD PAD PUD GERD Anxiety CTS evaluation for possible PleureX placement BD TX VM O2 NIPPV / HF NC O2 if WOB worsens Follow CXR No need for CT chest ID evaluation to assess for further ABX need (low suspicion) ICU monitoring Dr Palomino Critical care time spent in reviewing chart, evaluating patient and formulating plan - 36 minutes.
[2017-09-08] MEDS ORDERED: HEPARIN NA (PORCINE) 5,000 UNITS/ML 1ML VIAL IVPUSH PRN ×2 (13:35)
--- NOTE | 2017-09-08 14:04 | PN ---
Progress Note (short form) - Note Progress Note: Thoracic Surgery Please obtain CT scan chest. Possible VATS tomorrow. Full consult to follow.
--- NOTE | 2017-09-08 14:08 | PN ---
Progress Note (short form) - Note Progress Note: ID consult dictated imp/reccd 81 year old female admitted from home, s/p bronch 07/15/17 diagnosed with a high grade endocrine tumor being evaluated by oncology as an outpt has had progressive sob as outpt over the last few weeks using her oxygen all the time progressive weight loss unable to eat + sweats last night no diarrhea no abdominal pain no chest pain +constipation no dysuria cxray large right pleural effusion suspected malignant pleural effusion doubt empyema agree with plans for thoracentesis received vanco/zosyn in ed switch to ceftriaxone chest ct thrush- start nystatin swish and swallo please sent fluid for routineculture/afb and fungal as well as cytology Problem List - Problems (1) SOB (shortness of breath) Code(s): R06.02 - SHORTNESS OF BREATH (2) Pleural effusion Code(s): J90 - PLEURAL EFFUSION, NOT ELSEWHERE CLASSIFIED (3) Lung cancer Code(s): C34.90 - MALIGNANT NEOPLASM OF UNSP PART OF UNSP BRONCHUS OR LUNG Qualifiers: Laterality: right Lung location: unspecified part of lung Qualified Code( s): C34.91 - Malignant neoplasm of unspecified part of right bronchus or lung
[2017-09-08] MEDS: HEPARIN INFUSION - 25,000 UNITS/500 ML INFUS.BAG IVPB SCH (14:42)
[2017-09-08] MEDS ORDERED: NYSTATIN 500,000 UNITS/5 ML SUSPENSION PO ONE (14:45)
--- NOTE | 2017-09-08 14:53 | CONSULT ---
Consultation: REQUESTING PROVIDER: CONSULT REQUEST: We have been asked to medically evaluate this patient for ( Acute Respiratory Distress). 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 This was initially diagnosed after she underwent a bronchoscopy with Dr. Stallings on 07/15/2017. Pt came to [facility] ED via EMS yesterday with acute sob with O2 sat readings in the 80s and tachypnea, 30s/40s. Pt states she has been having worsening shortness of breath for the past 3 days, along with chills, shaking, and rhinorhea. Pt tentatively scheduled for a VATS procedure tomorrow with CTS to drain a right sided pleural effusion. Pt is being followed by Dr Garibay for her malignancy and has not began any chemotherapy or radiation treatment as of now. REVIEW OF SYSTEMS: CONSTITUTIONAL: PRESENT: generalized weakness, malaise, loss of appetite, weight change HEENT: Absent: rhinorrhea, nasal congestion, throat pain, throat swelling, difficulty swallowing, mouth swelling, ear pain, eye pain, visual changes CARDIOVASCULAR: Absent: chest pain, syncope, palpitations, irregular heart rate, lightheadedness , peripheral edema RESPIRATORY: PRESENT: cough, shortness of breath, dyspnea with exertion, orthopnea, wheezing GASTROINTESTINAL: Absent: abdominal pain, abdominal distension, nausea, vomiting, diarrhea, constipation, melena, hematochezia GENITOURINARY: Absent: dysuria, frequency, urgency, hesitancy, hematuria, flank pain, genital pain MUSCULOSKELETAL: Absent: myalgia, arthralgia, joint swelling, back pain, neck pain SKIN: Absent: rash, itching, pallor HEMATOLOGIC/IMMUNOLOGIC: Absent: easy bleeding, easy bruising, lymphadenopathy, frequent infections ENDOCRINE: Absent: unexplained weight gain, unexplained weight loss, heat intolerance, cold intolerance NEUROLOGIC: Absent: headache, focal weakness or paresthesias, dizziness, unsteady gait, seizure, mental status changes, bladder or bowel incontinence PSYCHIATRIC: Absent: anxiety, depression, suicidal or homicidal ideation, hallucinations. PHYSICAL EXAMINATION Vital Signs - 24 hr 09/08/17 09/08/17 09/08/17 05:06 05:32 05:49 Temperature 97.9 F Pulse Rate 74 69 Pulse Rate [ Left Radial] Pulse Rate [ Right] Respiratory 27 H Rate Blood Pressure 168/100 Blood Pressure [Right Arm] O2 Sat by Pulse 99 100 100 Oximetry (%) 09/08/17 09/08/17 09/08/17 06:26 07:49 08:17 Temperature 97.6 F Pulse Rate Pulse Rate [ 66 Left Radial] Pulse Rate [ 69 Right] Respiratory 18 14 Rate Blood Pressure Blood Pressure 155/89 154/67 [Right Arm] O2 Sat by Pulse 100 100 100 Oximetry (%) 09/08/17 09/08/17 09:58 10:37 Temperature 98.5 F Pulse Rate 91 H Pulse Rate [ 68 Left Radial] Pulse Rate [ Right] Respiratory 18 18 Rate Blood Pressure 155/60 Blood Pressure 138/57 [Right Arm] O2 Sat by Pulse 98 98 Oximetry (%) GENERAL: AAOx3. HEAD: NC/AT EYES: EOMI. EARS, NOSE, THROAT: Erythema of throat, exudate back of throat. NECK: Trachea midline, no jvd, LUNGS: Decreased BS throughout. Rales B/L. HEART: RRR ABDOMEN:ND, NT, No HSM. MUSCULOSKELETAL: Full range of motion upper and lower extremities. UPPER EXTREMITIES: No CCE LOWER EXTREMITIES: No CCE NEUROLOGICAL: CN 2-12 intact. No neuro deficits PSYCHIATRIC: Cooperative. Good eye contact. Appropriate mood and affect. SKIN: Warm, well perfused. S/P stenting b/l lower extremities. Laboratory Results - last 24 hr 09/08/17 09/08/17 09/08/17 05:40 05:40 05:40 WBC 13.6 H RBC 4.67 Hgb 14.1 Hct 42.7 MCV 91.4 MCH 30.1 MCHC 32.9 RDW 16.3 H Plt Count 285 MPV 10.0 D Absolute Neuts (auto) 12.2 Neutrophils % 89.6 H D Lymphocytes % 3.8 L D Monocytes % 6.3 Eosinophils % 0.1 D Basophils % 0.2 Nucleated RBC % 0 PT with INR 15.10 H* INR 1.34 PTT (Actin FS) 27.8 Puncture Site ABG pH ABG pCO2 at Pt Temp ABG pO2 at Pt Temp ABG HCO3 ABG O2 Sat (Measured) ABG O2 Content ABG Base Excess Gil Test VBG pH 7.22 L* D POC VBG pCO2 82.4 H* D POC VBG pO2 22.2 L Mixed VBG HCO3 32.3 H Carboxyhemoglobin Methemoglobin O2 Delivery Device Oxygen Flow Rate Vent Rate Mechanical Rate Pressure Support Vent Sodium Potassium Chloride Carbon Dioxide Anion Gap BUN Creatinine Creat Clearance w eGFR Random Glucose Lactic Acid Calcium Total Bilirubin AST ALT Alkaline Phosphatase Creatine Kinase Troponin I Total Protein Albumin 09/08/17 09/08/17 09/08/17 05:40 05:40 05:40 WBC RBC Hgb Hct MCV MCH MCHC RDW Plt Count MPV Absolute Neuts (auto) Neutrophils % Lymphocytes % Monocytes % Eosinophils % Basophils % Nucleated RBC % PT with INR INR PTT (Actin FS) Puncture Site ABG pH ABG pCO2 at Pt Temp ABG pO2 at Pt Temp ABG HCO3 ABG O2 Sat (Measured) ABG O2 Content ABG Base Excess Gil Test VBG pH POC VBG pCO2 POC VBG pO2 Mixed VBG HCO3 Carboxyhemoglobin Methemoglobin O2 Delivery Device Oxygen Flow Rate Vent Rate Mechanical Rate Pressure Support Vent Sodium Cancelled Potassium Cancelled Chloride Cancelled Carbon Dioxide Cancelled Anion Gap Cancelled BUN Cancelled Creatinine Cancelled Creat Clearance w eGFR Cancelled Random Glucose Cancelled Lactic Acid 2.4 H* Calcium Cancelled Total Bilirubin Cancelled AST Cancelled ALT Cancelled Alkaline Phosphatase Cancelled Creatine Kinase Troponin I Cancelled Total Protein Cancelled Albumin Cancelled 09/08/17 09/08/17 09/08/17 07:00 07:37 07:37 WBC RBC Hgb Hct MCV MCH MCHC RDW Plt Count MPV Absolute Neuts (auto) Neutrophils % Lymphocytes % Monocytes % Eosinophils % Basophils % Nucleated RBC % PT with INR INR PTT (Actin FS) Puncture Site Right brachial ABG pH 7.31 L ABG pCO2 at Pt Temp 56.5 H D ABG pO2 at Pt Temp 125.0 H D ABG HCO3 27.7 H ABG O2 Sat (Measured) 98.8 ABG O2 Content 17.7 ABG Base Excess 0.9 Gil Test Positive VBG pH POC VBG pCO2 POC VBG pO2 Mixed VBG HCO3 Carboxyhemoglobin 1.9 Methemoglobin 1.1 O2 Delivery Device Bipap Oxygen Flow Rate 50% Vent Rate 14 Mechanical Rate Bipap Pressure Support Vent 14/6 Sodium 141 Potassium 3.7 Chloride 105 Carbon Dioxide 28 Anion Gap 8 BUN 15 Creatinine 0.8 Creat Clearance w eGFR > 60 Random Glucose 183 H Lactic Acid 1.6 Calcium 8.4 L Total Bilirubin 0.5 AST 36 ALT 27 Alkaline Phosphatase 83 Creatine Kinase 99 Troponin I 0.03 Total Protein 5.6 L Albumin 2.8 L Active Medications Generic Name Dose Route Start Last Admin Trade Name Freq PRN Reason Stop Dose Admin Acetaminophen 650 mg 09/08/17 12:54 Tylenol - PO Q4H PRN PAIN LEVEL 1-5 Ascorbic Acid 500 mg 09/09/17 10:00 Vitamin C - PO DAILY [facility] Atorvastatin Calcium 10 mg 09/08/17 22:00 Lipitor - PO HS [facility] Chlorhexidine Gluconate 1 applic 09/08/17 22:00 Hibiclens For Decolonization - TP HS [facility] Cholecalciferol 5,000 unit 09/09/17 10:00 Vitamin D3 - PO DAILY [facility] Cyanocobalamin 1,000 mcg 09/09/17 10:00 Vitamin B12 - PO DAILY [facility] Digoxin 0.125 mg 09/09/17 10:00 Lanoxin - PO DAILY [facility] Diltiazem HCl 180 mg 09/09/17 10:00 Cardizem Cd - PO DAILY [facility] Furosemide 40 mg 09/10/17 10:00 Lasix - PO Q2D [facility] Heparin Sodium (Porcine) 1,000 unit 09/08/17 13:35 Heparin - IVPUSH PRN PRN Heparin Heparin Sodium (Porcine) 5,000 unit 09/08/17 13:35 Heparin - IVPUSH PRN PRN Heparin Hydralazine HCl 25 mg 09/08/17 22:00 Apresoline - PO BID [facility] Sodium Chloride 1,000 mls @ 75 mls/hr 09/08/17 06:32 09/08/17 06:45 Normal Saline - IV 09/08/17 19:47 75 mls/hr ASDIR STA Administration Heparin Sodium/Dextrose 25,000 units in 500 mls @ 16 mls/hr 09/08/17 13:45 Heparin Infusion - IVPB TITR [facility] Protocol 800 UNITS/HR Ceftriaxone Sodium 1 gm/ 100 mls @ 200 mls/hr 09/08/17 14:30 Dextrose IVPB DAILY [facility] Protocol Magnesium Oxide 400 mg 09/08/17 22:00 Mag-Ox - PO BID [facility] Metoprolol Succinate 25 mg 09/09/17 10:00 Toprol Xl - PO DAILY [facility] Mupirocin 1 applic 09/08/17 22:00 Bactroban Ointment (For Decolonization) - NS 09/13/17 21:59 BID [facility] Non-Formulary Medication 1 each 09/09/17 10:00 Fluticasone/Vilanterol [Breo Ellipta 100-25 Mcg Inh] IH DAILY [facility] Nystatin 500,000 units 09/08/17 14:20 Nystatin Oral Suspension - PO 09/08/17 14:21 ONCE ONE Oxycodone HCl 5 mg 09/08/17 12:54 Roxicodone - PO Q4H PRN PAIN LEVEL 6-10 Pyridoxine HCl 50 mg 09/09/17 10:00 Vitamin B6 - PO DAILY [facility] Sertraline HCl 25 mg 09/09/17 10:00 Zoloft - PO DAILY [facility] Sucralfate 1 gm 09/09/17 10:00 Carafate Oral Suspension - PO DAILY [facility] Valsartan 320 mg 09/09/17 10:00 Diovan - PO DAILY [facility] ASSESSMENT/PLAN: 81y/o lady with a past medical history of COPD, asthma, Afib, CAD, PUD, GERD and Neuroendocrine Small Cell Carcinoma- Lung. Suspected large Malignant Right effusion 2/2 Neuroendocrine Small Cell Carcinoma -CTS on Board -Possible VATS 09/09/2017- Dr Bonilla -Chest XRAY 09/08/17->Sizeable Right Effusion, Malignant pleural effusion most likely. -Nasal Canula 3lpm. Possible Pneumonia -I.D on board -1 GM Ceftriaxone started -Nystatin swish and swallow for oral thrush -Throat Culture. FEN Normal Saline 75 mls/hr Monitor Electrolytes Soft Diet. DVT ppx Heparin 66094 U gtt Dispo: We will continue to follow the patient. Thank you for this consultative opportunity. Visit type - Emergency Visit Emergency Visit: Yes ED Registration Date: 09/08/17 Care time: The patient presented to the Emergency Department on the above date and was hospitalized for further evaluation of their emergent condition. - New Patient This patient is new to me today: Yes Date on this admission: 09/08/17 - Critical Care Critical Care patient: Yes Total Critical Care Time (in minutes): 35 Critical Care Statement: The care of this patient involved high complexity decision making to prevent further life threatening deterioration of the patient 's condition and/or to evaluate & treat vital organ system(s) failure or risk of failure.
[2017-09-08] MEDS ORDERED: cefTRIAXone SODIUM 1 GM VIAL ONE (15:21)
[2017-09-08] MEDS ORDERED: DEXTROSE 5%-WATER - 50 ML IVPB ONE (15:21)
[2017-09-08] MEDS: CEFTRIAXONE 1 GM in DEXTROSE 5%-WATER - 50 ML IVPB SCH (15:25)
--- NOTE | 2017-09-08 16:57 | HP ---
Admitting History and Physical - Primary Care Physician PCP: Maxim Larson - Admission Chief Complaint: I am having trouble breathing History of Present Illness: Ms Moncada is a very pleasant 81 year old female who comes in with difficulty breathing. She is a bit tangential and inaccurate in her history. She says that she has been recently diagnosed with oat cell lung cancer (pathology says that it is a high grade neuroendocrine small cell carcinoma) and that she has been receiving treatment with Dr Garibay (it is unclear if any treatment has been initiated). She says that she wears oxygen at home and while she has a portable oxygen tank, her home one was removed (reasons for removal are unclear). It is also unclear whether she requires 24 hour oxygen or only on activity as she alludes to both. However 3 days ago she says she has worsening breathing. She says that she is always short of breath and has required either more baseline oxygen or that she is wearing it more often. She says she has night sweats associated with this. She has a cough with clear productive sputum. She has chest pain felt with coughing. She tried to hold off on coming to the hospital as she has doctors appointments this week but her breathing became so labored she had to come in. She is currently feeling better on venti-mask. She denies fevers, lightheadedness, passing out, nausea, vomiting, diarrhea, constipation, difficulty or pain on urination, or swelling. She endorses about a 30lb unintentional weight loss over the past 6 years that she attributes to taking too many medications. - Past Medical History Cardiovascular: Yes: AFIB, CAD, HTN, Hyperlipdemia Pulmonary: Yes: COPD Infectious Disease: Yes: C-Diff Musculoskeletal: Yes: Osteoarthritis - Past Surgical History Past Surgical History: Yes: Appendectomy, Hysterectomy, Permanent Pacemaker - Smoking History Smoking history: Never smoked Have you smoked in the past 12 months: No Aproximately how many cigarettes per day: 0 If you are a former smoker, when did you quit?: 2002 - Alcohol/Substance Use Hx Alcohol Use: No - Social History Usual Living Arrangement: Yes: Alone ADL: Independent History of Recent Travel: No Home Medications - Allergies Allergies/Adverse Reactions: Allergies Allergy/AdvReac Type Severity Reaction Status Date / Time melatonin Allergy Mild Nausea Verified 09/08/17 05:14 vancomycin AdvReac Mild Nausea Verified 09/08/17 05:14 zolpidem AdvReac Unknown Verified 09/08/17 05:14 zolpidem tartrate AdvReac Unknown Verified 09/08/17 05:14 [From Abhay] - Home Medications Home Medications: Ambulatory Orders Ascorbic Acid [Vitamin C -] 500 mg PO DAILY 05/09/17 Atorvastatin Ca [Lipitor] 10 mg PO HS 05/09/17 Cholecalciferol (Vitamin D3) [Vitamin D3] 5,000 unit PO DAILY 05/09/17 Cyanocobalamin [Vitamin B12 -] 1,000 mcg PO DAILY 05/09/17 Digoxin [Lanoxin -] 0.125 mg PO DAILY 05/09/17 Diltiazem HCl [Tiazac] 180 mg PO DAILY 05/09/17 Fluticasone/Vilanterol [Breo Ellipta 100-25 Mcg INH] 1 each IH DAILY 05/09/17 Hydralazine HCl 25 mg PO BID 05/09/17 Magnesium Oxide [Magnesium] 400 mg PO BID 05/09/17 Pyridoxine HCl (B-6) [Vitamin B6 -] 50 mg PO DAILY 05/09/17 Sertraline HCl 25 mg PO DAILY 05/09/17 Valsartan 320 mg PO DAILY 05/09/17 oxyCODONE HCL [Roxicodone -] 5 mg PO BID PRN 05/09/17 Apixaban [Eliquis -] 2.5 mg PO BID #60 tablet 05/18/17 Furosemide [Lasix -] 40 mg PO Q2D tablet 05/18/17 Metoprolol Succinate [Toprol XL -] 25 mg PO DAILY #30 tab.sr.24h 05/18/17 Albuterol Sulfate Inhaler - [Ventolin Hfa Inhaler -] 1 - 2 inh PO PRN PRN Sucralfate [Carafate] 1 gm PO DAILY 07/15/17 Family Disease History - Family Disease History Family History: Unremarkable Review of Systems Findings/Remarks: Full review of systems obtained, as per HPI and otherwise negative Physical Examination Vital Signs: Vital Signs Temperature 36.9 C 09/08/17 10:37 Pulse Rate 68 09/08/17 15:13 Respiratory Rate 18 09/08/17 15:13 Blood Pressure 117/80 09/08/17 15:13 O2 Sat by Pulse Oximetry (%) 98 09/08/17 10:37 Constitutional: Yes: No Distress, Calm, Thin Eyes: Yes: Conjunctiva Clear, EOM Intact, PERRL HENT: Yes: Atraumatic, Normocephalic Cardiovascular: Yes: Regular Rate and Rhythm. No: Gallop, Murmur, Rub Respiratory: Yes: Regular, Diminished (R side), On Venti-Mask, Rhonchi (R side) . No: CTA Bilaterally, Rales, Wheezes Gastrointestinal: Yes: Normal Bowel Sounds, Soft. No: Distention, Tenderness Extremities: Yes: WNL Edema: No Labs: CBC, BMP 09/08/17 05:40 09/08/17 07:37 Imaging - Results Chest X-ray: Report Reviewed, Image Reviewed Problem List - Problems (1) Acute and chronic respiratory failure with hypoxia Assessment/Plan: -secondary to large R pleural effusion -continue oxygen support -case d/w Dr Palomino Code(s): J96.21 - ACUTE AND CHRONIC RESPIRATORY FAILURE WITH HYPOXIA (2) Pleural effusion Assessment/Plan: -malignant -consult CT surgery for possible pleurex catheter placement Code(s): J90 - PLEURAL EFFUSION, NOT ELSEWHERE CLASSIFIED (3) COPD exacerbation Assessment/Plan: -secondary to pleural effusion -placed on bipap, now stable on venti-mask -continue home regimen -pulmonary critical following Code(s): J44.1 - CHRONIC OBSTRUCTIVE PULMONARY DISEASE W (ACUTE) EXACERBATION (4) Lung cancer Assessment/Plan: -high grade neuroendocrine small cell carcinoma Code(s): C34.90 - MALIGNANT NEOPLASM OF UNSP PART OF UNSP BRONCHUS OR LUNG Qualifiers: Laterality: right Lung location: unspecified part of lung Qualified Code( s): C34.91 - Malignant neoplasm of unspecified part of right bronchus or lung (5) Atrial fibrillation Assessment/Plan: -controlled -hold anticoagulation for possible CT intervention Code(s): I48.91 - UNSPECIFIED ATRIAL FIBRILLATION Qualifiers: Atrial fibrillation type: chronic Qualified Code(s): I48.2 - Chronic atrial fibrillation (6) CHF (congestive heart failure) Assessment/Plan: -continue lasix Code(s): I50.9 - HEART FAILURE, UNSPECIFIED Qualifiers: Qualified Code(s): I50.9 - Heart failure, unspecified (7) Hyperlipidemia Assessment/Plan: -considering overall prognosis, will stop statin Code(s): E78.5 - HYPERLIPIDEMIA, UNSPECIFIED (8) Hypertension Assessment/Plan: -continue home regimen -monitor Code(s): I10 - ESSENTIAL (PRIMARY) HYPERTENSION (9) Pacemaker Code(s): Z95.0 - PRESENCE OF CARDIAC PACEMAKER Assessment/Plan 62 minutes spent in critical care time with this patient
--- NOTE | 2017-09-08 16:59 | EKG ---
Test Reason : Blood Pressure : / mmHG Vent. Rate : 069 BPM Atrial Rate : 069 BPM P-R Int : 000 ms QRS Dur : 152 ms QT Int : 442 ms P-R-T Axes : 000 -82 089 degrees QTc Int : 473 ms Ventricular-paced rhythm ABNORMAL ECG Confirmed by MD ANITA, HERMINIA ([id number]) on 09/08/2017 4:58:57 PM Referred By: Confirmed By:HERMINIA HOWARD MD
[2017-09-08] MEDS: oxyCODONE HCL 5 MG TABLET PO PRN (17:12)
--- NOTE | 2017-09-08 19:01 | CONS ---
DATE OF CONSULTATION: DATE OF DICTATION: 09/08/2017 INFECTIOUS DISEASE CONSULTATION REQUESTING PHYSICIAN: Maximino Palomino M.D. CONSULTING PHYSICIAN: Selam Van M.D. 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 She lives alone. Since that time, she has had progressive shortness of breath. She has oxygen at home. Apparently it had been switched to a smaller tank and she became more short of breath. She reports she has had oxygen at home for a very long time but has only intermittently used it and only recently has required it all the time. Three days ago she had worsening of her breathing, and she came to the hospital. She has night sweats. She has a cough, and she has some chest pain when she coughs. She has no abdominal pain. She did not know that she has any fevers. She has been constipated. She has not been eating. She has had a weight loss, unclear how much. PAST MEDICAL HISTORY: Notable for a history of atrial fibrillation, coronary artery disease, hypertension, hyperlipidemia, she reports that one of her carotids is clotted. She has COPD. She had C. difficile in the past and osteoarthritis. SURGICAL HISTORY: Notable for appendectomy, hysterectomy. She had a permanent pacemaker. SOCIAL HISTORY: She lives alone. She has 5 adult children. She has 3 grandkids. There is no history of any travel. She has no sick contacts. She lives alone. REVIEW OF SYSTEMS: There is no hemoptysis. There is a positive weight loss, and she notes night sweats. She is a former smoker. She quit in 2002. PHYSICAL EXAMINATION: GENERAL: She is a thin woman. She is mildly forgetful. Her daughter is present and prompting her. VITAL SIGNS: She is afebrile. Temperature 98.5. Pulse is 68. Blood pressure 117/80. Respiratory rate 18. She is saturating 96% on 50% Ventimask. HEENT: She is normocephalic. He eyes are anicteric. NECK: Supple. She has thrush. LUNGS: She has diminished breath sounds half way up her right lung. Her left lung is clear. HEART: Tachycardic. ABDOMEN: Soft, nontender. EXTREMITIES: Without edema. LABORATORY: Her white count is 13.6, hemoglobin 14.1, platelets are 285. Her BUN and creatinine are 15 and 0.8. Her cultures were sent. She receives vancomycin, Zosyn, and Solu-Medrol this morning in the emergency room. Chest x-ray reveals a right-sided effusion. IMPRESSION: 1. In summary, this is an 81-year-old woman status post recent diagnosis of high-grade endocrine tumor with dyspnea, large right pleural effusion, suspected malignant. I doubt there is empyema given the fact she does not appear that ill. I would agree with plans for thoracentesis and chest CT. She received vancomycin in the emergency room. Would treat her on ceftriaxone given the fact she has complained of sweats at home which may be due to hypoxia but would cover her at this time thoracentesis is done, would suggest fluids cultures AFB and fungal as well as cytology. 2. Thrush. Would start nystatin swish and swallow. Further recommendations to follow. Neal [id number]
[2017-09-08] MEDS: MAGNESIUM OXIDE 400 MG TABLET (FP) PO SCH (21:35)
[2017-09-08] MEDS: hydrALAZINE HCL 25 MG TABLET (FP) PO SCH (21:35)
[2017-09-08] MEDS: CHLORHEXIDINE GLUCONATE 4% CLEANSER FOR DECOLONIZATION TP SCH (21:36)
[2017-09-08] MEDS: MUPIROCIN 2% TOPICAL OINTMENT FOR DECOLONIZATION NS SCH (21:36)
[2017-09-08] MEDS ORDERED: ATORVASTATIN CA 10 MG TABLET (FP) PO SCH (22:00)
[2017-09-08 23:42] LABS: URINE APPEARANCE CLEAR; URINE BILIRUBIN NEGATIVE (<2.0 mg/dL); URINE COLOR YELLOW; URINE GLUCOSE (UA) 1+ (NEGATIVE); URINE KETONE NEGATIVE (NEGATIVE); URINE LEUK ESTERASE TRACE (NEGATIVE); URINE NITRITE NEGATIVE (NEGATIVE); URINE UROBILINOGEN NEGATIVE mg/dL (0.2-1.0)
[2017-09-08 23:43] LABS: URINE PROTEIN 1+ (NEGATIVE)
[2017-09-08 23:44] LABS: EPI CELLS RARE /HPF (FEW); URINE HYALINE CAST 4 /lpf; URINE MUCUS RARE
[2017-09-09] MEDS: oxyCODONE HCL 5 MG TABLET PO PRN ×2 (05:09→16:35)
[2017-09-09 05:52] LABS: HEMATOCRIT 38.1 % (32.4-45.2); HEMOGLOBIN 12.7 GM/dL (10.7-15.3); MCH 29.9 pg (25.7-33.7); MCHC 33.3 g/dl (32.0-36.0); MEAN CELL VOLUME 89.8 fl (80-96); MEAN PLT VOLUME 9.7 fl (7.5-11.1); PLATELET COUNT 279 K/MM3 (134-434); RBC 4.24 M/mm3 (3.60-5.2); RDW 16.6 % (11.6-15.6); WHITE BLOOD COUNT 16.1 K/mm3 (4.0-10.0)
[2017-09-09 06:16] LABS: ANION GAP 7 (8-16); BLOOD UREA NITROGEN 18 mg/dL (7-18); CALCIUM 8.8 mg/dL (8.5-10.1); CHLORIDE 107 mmol/L (98-107); CO2 30 mmol/L (21-32); GLUCOSE,RANDOM 118 mg/dL (74-106); MAGNESIUM 2.5 mg/dL (1.8-2.4); PHOSPHOROUS 3.8 mg/dL (2.5-4.9); POTASSIUM 4.2 mmol/L (3.5-5.1); SODIUM 144 mmol/L (136-145)
[2017-09-09] MEDS ORDERED: DEXTROSE 5%-WATER - 50 ML IVPB ONE (09:53)
[2017-09-09] MEDS ORDERED: cefTRIAXone SODIUM 1 GM VIAL ONE (09:53)
[2017-09-09] MEDS: VALSARTAN 160 MG TABLET (UD) PO SCH (09:58)
[2017-09-09] MEDS: CEFTRIAXONE 1 GM in DEXTROSE 5%-WATER - 50 ML IVPB SCH (09:58)
[2017-09-09] MEDS: DIGOXIN 0.125 MG TABLET (FP) PO SCH (09:59)
[2017-09-09] MEDS: hydrALAZINE HCL 25 MG TABLET (FP) PO SCH ×2 (09:59→21:20)
[2017-09-09] MEDS: metoPROLOL SUCCINATE 25 MG TAB.SR.24H (FP) PO SCH (10:00)
[2017-09-09] MEDS: MUPIROCIN 2% TOPICAL OINTMENT FOR DECOLONIZATION NS SCH ×2 (10:00→21:30)
[2017-09-09] MEDS: SUCRALFATE 1 GM/10 ML UNIT DOSE CUPS PO SCH (10:00)
[2017-09-09] MEDS: PYRIDOXINE HCL (B-6) 50 MG TABLET (FP) PO SCH (10:01)
[2017-09-09] MEDS: CYANOCOBALAMIN 1,000 MCG TABLET (FP) PO SCH (10:01)
[2017-09-09] MEDS: SERTRALINE HCL 25 MG TABLET (FP) PO SCH (10:01)
[2017-09-09] MEDS: MAGNESIUM OXIDE 400 MG TABLET (FP) PO SCH ×2 (10:01→21:21)
[2017-09-09] MEDS: CHOLECALCIFEROL (VITAMIN D3) 1,000 UNIT TABLET (FP) PO SCH (10:01)
[2017-09-09] MEDS: ASCORBIC ACID 500 MG TABLET (FP) PO SCH (10:01)
[2017-09-09] MEDS ORDERED: ROCURONIUM BROMIDE 50 MG/5 ML VIAL ONE (10:54)
[2017-09-09] MEDS ORDERED: SUCCINYLCHOLINE CHLORIDE 200 MG/10 ML VIAL ONE (10:54)
--- NOTE | 2017-09-09 11:08 | PN ---
Progress Note, Physician Chief Complaint: Ms Moncada says she is feeling better today but had some shortness of breath overnight. Currently no cp, sob, n/v. - Current Medication List Current Medications: Active Medications Acetaminophen (Tylenol -) 650 mg PO Q4H PRN PRN Reason: PAIN LEVEL 1-5 Ascorbic Acid (Vitamin C -) 500 mg PO DAILY [facility] Last Admin: 09/09/17 10:01 Dose: Not Given Chlorhexidine Gluconate (Hibiclens For Decolonization -) 1 applic TP HS [facility] Last Admin: 09/08/17 21:36 Dose: 1 applic Cholecalciferol (Vitamin D3 -) 5,000 unit PO DAILY [facility] Last Admin: 09/09/17 10:01 Dose: Not Given Cyanocobalamin (Vitamin B12 -) 1,000 mcg PO DAILY [facility] Last Admin: 09/09/17 10:01 Dose: Not Given Digoxin (Lanoxin -) 0.125 mg PO DAILY [facility] Last Admin: 09/09/17 09:59 Dose: 0.125 mg Diltiazem HCl (Cardizem Cd -) 180 mg PO DAILY [facility] Last Admin: 09/09/17 09:59 Dose: 180 mg Furosemide (Lasix -) 40 mg PO Q2D [facility] Heparin Sodium (Porcine) (Heparin -) 1,000 unit IVPUSH PRN PRN PRN Reason: Heparin Last Admin: 09/08/17 23:48 Dose: 1,000 unit Heparin Sodium (Porcine) (Heparin -) 5,000 unit IVPUSH PRN PRN PRN Reason: Heparin Hydralazine HCl (Apresoline -) 25 mg PO BID [facility] Last Admin: 09/09/17 09:59 Dose: 25 mg Heparin Sodium/Dextrose (Heparin Infusion -) 25,000 units in 500 mls @ 16 mls/ hr IVPB TITR [facility]; Protocol Last Titration: 09/09/17 00:00 Dose: 0 units/hr, 0 mls/hr Ceftriaxone Sodium 1 gm/ (Dextrose) 50 mls @ 100 mls/hr IVPB DAILY [facility]; Protocol Last Admin: 09/09/17 09:58 Dose: 100 mls/hr Magnesium Oxide (Mag-Ox -) 400 mg PO BID [facility] Last Admin: 09/09/17 10:01 Dose: Not Given Metoprolol Succinate (Toprol Xl -) 25 mg PO DAILY [facility] Last Admin: 09/09/17 10:00 Dose: 25 mg Mupirocin (Bactroban Ointment (For Decolonization) -) 1 applic NS BID [facility] Stop: 09/13/17 21:59 Last Admin: 09/09/17 10:00 Dose: Not Given Non-Formulary Medication (Fluticasone/Vilanterol [Breo Ellipta 100-25 Mcg Inh]) 1 each IH DAILY [facility] Oxycodone HCl (Roxicodone -) 5 mg PO Q4H PRN PRN Reason: PAIN LEVEL 6-10 Last Admin: 09/09/17 05:09 Dose: 5 mg Pyridoxine HCl (Vitamin B6 -) 50 mg PO DAILY [facility] Last Admin: 09/09/17 10:01 Dose: Not Given Sertraline HCl (Zoloft -) 25 mg PO DAILY [facility] Last Admin: 09/09/17 10:01 Dose: Not Given Sucralfate (Carafate Oral Suspension -) 1 gm PO DAILY [facility] Last Admin: 09/09/17 10:00 Dose: Not Given Valsartan (Diovan -) 320 mg PO DAILY [facility] Last Admin: 09/09/17 09:58 Dose: 320 mg - Objective Vital Signs: Vital Signs Temperature 37.0 C 09/09/17 10:00 Pulse Rate 71 09/09/17 10:00 Respiratory Rate 20 09/09/17 10:09 Blood Pressure 152/66 09/09/17 10:00 O2 Sat by Pulse Oximetry (%) 96 09/09/17 10:09 Constitutional: Yes: No Distress, Calm, Thin Cardiovascular: Yes: Regular Rate and Rhythm. No: Gallop, Murmur, Rub Respiratory: Yes: Regular, Diminished (R side), Dullness, On Venti-Mask, Rhonchi. No: CTA Bilaterally, Rales, Wheezes Gastrointestinal: Yes: Normal Bowel Sounds, Soft. No: Distention, Tenderness Extremities: Yes: WNL Edema: No Labs: CBC, BMP 09/09/17 05:30 09/09/17 05:30 INR, PTT INR 1.34 (0.83-1.09) 09/08/17 05:40 Problem List - Problems (1) Acute and chronic respiratory failure with hypoxia Code(s): J96.21 - ACUTE AND CHRONIC RESPIRATORY FAILURE WITH HYPOXIA (2) Pleural effusion Code(s): J90 - PLEURAL EFFUSION, NOT ELSEWHERE CLASSIFIED (3) COPD exacerbation Code(s): J44.1 - CHRONIC OBSTRUCTIVE PULMONARY DISEASE W (ACUTE) EXACERBATION (4) Lung cancer Code(s): C34.90 - MALIGNANT NEOPLASM OF UNSP PART OF UNSP BRONCHUS OR LUNG Qualifiers: Laterality: right Lung location: unspecified part of lung Qualified Code( s): C34.91 - Malignant neoplasm of unspecified part of right bronchus or lung (5) Atrial fibrillation Code(s): I48.91 - UNSPECIFIED ATRIAL FIBRILLATION Qualifiers: Atrial fibrillation type: chronic Qualified Code(s): I48.2 - Chronic atrial fibrillation (6) CHF (congestive heart failure) Code(s): I50.9 - HEART FAILURE, UNSPECIFIED (7) Hyperlipidemia Code(s): E78.5 - HYPERLIPIDEMIA, UNSPECIFIED (8) Hypertension Code(s): I10 - ESSENTIAL (PRIMARY) HYPERTENSION (9) Pacemaker Code(s): Z95.0 - PRESENCE OF CARDIAC PACEMAKER Assessment/Plan (1) Acute and chronic respiratory failure with hypoxia Assessment/Plan: -plan for possible VATS today -continue oxygenation Code(s): J96.21 - ACUTE AND CHRONIC RESPIRATORY FAILURE WITH HYPOXIA (2) Pleural effusion Assessment/Plan: -malignant -as above Code(s): J90 - PLEURAL EFFUSION, NOT ELSEWHERE CLASSIFIED (3) COPD exacerbation Assessment/Plan: -stable -continue oxygen support -continue inhalers Code(s): J44.1 - CHRONIC OBSTRUCTIVE PULMONARY DISEASE W (ACUTE) EXACERBATION (4) Lung cancer Assessment/Plan: -high grade neuroendocrine small cell carcinoma Code(s): C34.90 - MALIGNANT NEOPLASM OF UNSP PART OF UNSP BRONCHUS OR LUNG Qualifiers: Laterality: right Lung location: unspecified part of lung Qualified Code( s): C34.91 - Malignant neoplasm of unspecified part of right bronchus or lung (5) Atrial fibrillation Assessment/Plan: -controlled -hold anticoagulation for possible CT intervention Code(s): I48.91 - UNSPECIFIED ATRIAL FIBRILLATION Qualifiers: Atrial fibrillation type: chronic Qualified Code(s): I48.2 - Chronic atrial fibrillation (6) CHF (congestive heart failure) Assessment/Plan: -continue lasix Code(s): I50.9 - HEART FAILURE, UNSPECIFIED Qualifiers: Qualified Code(s): I50.9 - Heart failure, unspecified (7) Hyperlipidemia Assessment/Plan: -considering overall prognosis, will stop statin Code(s): E78.5 - HYPERLIPIDEMIA, UNSPECIFIED (8) Hypertension Assessment/Plan: -continue home regimen -monitor Code(s): I10 - ESSENTIAL (PRIMARY) HYPERTENSION (9) Pacemaker Code(s): Z95.0 - PRESENCE OF CARDIAC PACEMAKER Dispo -goals of care discussed -patient's wishes unclear -will consult palliative care team 32 minutes in critical care time
[2017-09-09] MEDS ORDERED: LIDOCAINE HCL 1%, 10 MG/ML (20ML VIAL) ONE (11:15)
[2017-09-09] MEDS ORDERED: BUPIVACAINE HCL/PF 0.25% (2.5MG/ML) 10 ML VIAL ONE ×2 (11:15→11:48)
[2017-09-09] MEDS ORDERED: ceFAZolin SODIUM 1 GM VIAL ONE (11:37)
[2017-09-09] MEDS ORDERED: ceFAZolin SODIUM 1 GM VIAL IVPB ONE (11:41)
[2017-09-09] MEDS ORDERED: BUPIVACAINE HCL/PF 0.25% (2.5MG/ML) 10 ML VIAL IJ ONE (11:42)
[2017-09-09] MEDS ORDERED: LIDOCAINE HCL 1%, 10 MG/ML (20ML VIAL) PNB ONE (11:42)
[2017-09-09] MEDS ORDERED: LIDOCAINE HCL 2% (50ML VIAL) PNB ONE (11:42)
[2017-09-09] MEDS ORDERED: MIDAZOLAM HCL 2 MG/2 ML SINGLE DOSE VIAL ONE (11:43)
[2017-09-09] MEDS ORDERED: LIDOCAINE HCL 2% (20ML MULTI-DOSE VIAL) NR ONE (11:48)
--- NOTE | 2017-09-09 12:41 | OPR ---
Patient Name: Barbara Moncada MR#: [id number] Procedure Date: 09/09/2017, Date of Admission: 09/08/2017, Inpatient Procedure Preoperative Diagnosis: Lung cancer with malignant effusion, CAD, Atrial fibrillation, Peripheral Vascular Disease, GERD, Former Smoker Postoperative Diagnosis: same Procedure: 1. Right VATS; 2. Placement of pleur-x catheter Indication: Dyspnea Surgeon(s): Ino Bonilla MD Cosurgeon: na Rubber Tubing Backer Surgeon: MARIO Kay Anesthesia: Local with sedation; Findings: right effusion straw-colored, 500cc of fluid drained passively, tube placed in chest Specimens Sent: fluid for culture and cytology Complications: none Drains / Tubes / Catheters: Pleur-x catheter Hardware / Implants: na Blood / Fluid Losses: minimal Post-Operative Condition: Hemodynamically stable in transfer to PACU Indications: This patient is an 81 year-old female with a history of lung cancer and a malignant effusion as well as the multiple other diagnoses listed. She was admitted with dyspnea and I was consulted by the ICU team for placement of a pleur-x. A CT scan showed endobronchial obstruction as well as a effusion. I had a thorough discussion with the family (her daughters) and Dr. Stallings and Dr. Palomino regarding whether this would help with her dyspnea feeling that the endobronchial obstruction may limit her palliation. We all agreed that there was a chance it would help if it relieved pressure on the other lung or helped expand the upper lobe slightly. For this reason, she and her family agreed to the procedure after the discussion and consideration of risks, benefits, and alternatives Details of Procedure: The patient was taken into the operating room and placed supine on the table. She was monitored with pulse oximetry and blood pressure monitoring. Preoperative antibiotics were given. We chose the port site based on the CT imaging. She was positioned supine with a bolster under the right side. Her chest was prepared and draped in standard surgical fashion. We then picked our spot of insertion. We next used the finder needle and injected lidocaine with bupivicaine in the rib space and anteriorly for the tunneled portion. Next, we cut down to the chest and placed a 5mm camera with a port and visulaized the lung and fluid. We then tunneled the catheter from anterior to posterior. Once this was done, the dilator, with peel-off piece was carefully placed. At this point we inserted the catheter and peeled off the remaining tubing. It was connected to a pleurovac. Both incisions were closed and a dressing was placed. The drain was secured to the skin. She was transferred to the ICU in hemodynamically stable condition. I will follow her as an inpatient and as an outpatient in the clinic.
--- NOTE | 2017-09-09 12:51 | OP ---
Operative Note - Note: Operative Date: 09/09/17 Pre-Operative Diagnosis: right malignant pleural effusion Operation: right video assisted thoracscopy with pleurex catheter insertion, drainage of pleural fluid Surgeon: Ino Bonilla Customs [employer] Border Protection Officer: Nely Gunn Anesthesiologist/EYE GLASS FRAME POLISHER: Virginia Cool Anesthesia: Local Estimated Blood Loss (mls): 10 Drains, Volume Out (mls): 900 (pleurex catheter) Fluid Volume Replaced (mls): 100 Operative Report Dictated: Yes
--- NOTE | 2017-09-09 12:52 | OP ---
Operative Note - Note: Operative Date: 09/09/17 Pre-Operative Diagnosis: Malignant effusion Operation: Right vats placement of pleur-x Findings: serous fluid, 500cc drained passively. Surgeon: Ino Bonilla Sales Marketing Manager: Nely Gunn Anesthesia: MAC Estimated Blood Loss (mls): 5 Operative Report Dictated: Yes
--- NOTE | 2017-09-09 12:56 | SURG ---
Surgery Product Steward Note Product Steward: Nely Gunn PA-C Date of Service: 09/09/17 Diagnosis: right malignant pleural effusion Procedure: right video assisted thoracoscopy, insertion of pleural catheter, drainage of pleural effusion I was present for the entirety of the operative procedure. For further detail, please refer to operative report. Visit type - Case Type Case Type: ED Admission - Emergency Emergency Visit: Yes ED Registration Date: 09/08/17 Care time: The patient presented to the Emergency Department on the above date and was hospitalized for further evaluation of their emergent condition. - New patient This patient is new to me today: Yes Date on this admission: 09/09/17
--- NOTE | 2017-09-09 12:59 | PN ---
Teaching Attending Note Name of Resident: Shaquille Archer ATTENDING PHYSICIAN STATEMENT I saw and evaluated the patient. I reviewed the resident's note and discussed the case with the resident. I agree with the resident's findings and plan as documented. SUBJECTIVE: Pt seen and examined in the ICU. s/p R VATS/pleur-x placement. Still labored breathing. OBJECTIVE: Vital Signs Period Temp Pulse Resp BP Sys/Wahl Pulse Ox Last 24 Hr 98.4 F-99.0 F 63-90 17-24 106-178/49-80 94-100 Intake & Output 09/06/17 09/07/17 09/08/17 09/09/17 23:59 23:59 23:59 23:59 Intake Total 1454 116 Output Total 200 200 Balance 1254 -84 Weight 52.1 kg 52.617 kg Gen: tachypneic at rest Heart: RRR Lung: decreased breath sounds on right, scattered rhonchi Abd: soft, nontender Ext: no edema CBC, BMP 09/09/17 05:30 09/09/17 05:30 Active Medications Acetaminophen (Ofirmev Injection -) 1,000 mg IVPB Q6H PRN PRN Reason: PAIN LEVEL 1-5 Ascorbic Acid (Vitamin C -) 500 mg PO DAILY [facility] Last Admin: 09/09/17 10:01 Dose: Not Given Chlorhexidine Gluconate (Hibiclens For Decolonization -) 1 applic TP HS [facility] Last Admin: 09/08/17 21:36 Dose: 1 applic Cholecalciferol (Vitamin D3 -) 5,000 unit PO DAILY [facility] Last Admin: 09/09/17 10:01 Dose: Not Given Cyanocobalamin (Vitamin B12 -) 1,000 mcg PO DAILY [facility] Last Admin: 09/09/17 10:01 Dose: Not Given Digoxin (Lanoxin -) 0.125 mg PO DAILY [facility] Last Admin: 09/09/17 09:59 Dose: 0.125 mg Diltiazem HCl (Cardizem Cd -) 180 mg PO DAILY [facility] Last Admin: 09/09/17 09:59 Dose: 180 mg Furosemide (Lasix -) 40 mg PO Q2D [facility] Heparin Sodium (Porcine) (Heparin -) 1,000 unit IVPUSH PRN PRN PRN Reason: Heparin Last Admin: 09/08/17 23:48 Dose: 1,000 unit Heparin Sodium (Porcine) (Heparin -) 5,000 unit IVPUSH PRN PRN PRN Reason: Heparin Heparin Sodium (Porcine) (Heparin -) 5,000 unit SQ TID [facility] Hydralazine HCl (Apresoline -) 25 mg PO BID [facility] Last Admin: 09/09/17 09:59 Dose: 25 mg Heparin Sodium/Dextrose (Heparin Infusion -) 25,000 units in 500 mls @ 16 mls/ hr IVPB TITR [facility]; Protocol Last Titration: 09/09/17 00:00 Dose: 0 units/hr, 0 mls/hr Ceftriaxone Sodium 1 gm/ (Dextrose) 50 mls @ 100 mls/hr IVPB DAILY [facility]; Protocol Last Admin: 09/09/17 09:58 Dose: 100 mls/hr Magnesium Oxide (Mag-Ox -) 400 mg PO BID [facility] Last Admin: 09/09/17 10:01 Dose: Not Given Metoprolol Succinate (Toprol Xl -) 25 mg PO DAILY [facility] Last Admin: 09/09/17 10:00 Dose: 25 mg Morphine Sulfate (Morphine Injection -) 2 mg IVPUSH Q4H PRN PRN Reason: PAIN LEVEL 6-10 Mupirocin (Bactroban Ointment (For Decolonization) -) 1 applic NS BID [facility] Stop: 09/13/17 21:59 Last Admin: 09/09/17 10:00 Dose: Not Given Non-Formulary Medication (Fluticasone/Vilanterol [Breo Ellipta 100-25 Mcg Inh]) 1 each IH DAILY [facility] Oxycodone HCl (Roxicodone -) 5 mg PO Q4H PRN PRN Reason: PAIN LEVEL 6-10 Last Admin: 09/09/17 05:09 Dose: 5 mg Pyridoxine HCl (Vitamin B6 -) 50 mg PO DAILY [facility] Last Admin: 09/09/17 10:01 Dose: Not Given Sertraline HCl (Zoloft -) 25 mg PO DAILY [facility] Last Admin: 09/09/17 10:01 Dose: Not Given Sucralfate (Carafate Oral Suspension -) 1 gm PO DAILY [facility] Last Admin: 09/09/17 10:00 Dose: Not Given Valsartan (Diovan -) 320 mg PO DAILY [facility] Last Admin: 09/09/17 09:58 Dose: 320 mg ASSESSMENT AND PLAN: Acute on Chronic Hypoxic Respiratory Failure Progressive Small Cell Ca with endobronchial involvement Right Pleural Effusion s/p R VATS/pleur-x placement r/o Pneumonia COPD Paroxysmal Atrial Fibrillation s/p PPM PAD - monitor chest tube drainage - O2 to keep SpO2 >90% - inhaled bronchodilators - rate controlled - resume anticoagulation when ok with surgery - continue empiric antibiotics - f/u pleural fluid studies - BiPAP as needed to assist in work of breathing - continue ICU monitoring critical care time spent in reviewing chart, evaluating patient and formulating plan 35 min
[2017-09-09] MEDS: HEPARIN NA (PORCINE) 5,000 UNITS/ML 1ML VIAL SQ SCH ×2 (13:15→21:20)
[2017-09-09] MEDS: ACETAMINOPHEN 1000 MG/100 ML VIAL (NON FORMULARY) IVPB PRN (13:20)
--- NOTE | 2017-09-09 14:10 | CONSULT ---
Consultation: REQUESTING PROVIDER: CONSULT REQUEST: We have been asked to medically evaluate this patient for ( hematology- oncology). 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 Patient states that she has worsening sob from last month and uses home oxygen at 3L but now she was unable to lie down and walk. In the hospital she underwent CT scan which shows right side pleural effusion with collapse of right lung. VATS with plur-x placement done on 09/09/2017. Patient also reports 25 pound weight loss in one month with loss of appetite. Also reports chest pain on right side which increases with cough. Patient also reports that she has chronic dry cough. PMH ; afib, cad, htn, hld, copd, chf social history; smoked for 35-40 years one pack a day PSH: pacemaker 10 years ago. PHYSICAL EXAMINATION Vital Signs - 24 hr 09/08/17 09/08/17 09/08/17 15:13 17:00 17:27 Temperature Pulse Rate 68 90 Respiratory 18 24 Rate Blood Pressure 117/80 163/53 O2 Sat by Pulse 96 96 Oximetry (%) GENERAL: Awake, alert, and fully oriented, complaining of pain HEAD: Normal with no signs of trauma. EARS, NOSE, THROAT: dry mucous membranes. NECK: supple without lymphadenopathy, LUNGS:right side decrease air entry, crackles present right side, chest tube present right side, left side good air entry mild wheezing. pacemaker on left side HEART: s1s2 normal, no murmur ABDOMEN: Soft, nontender, not distended, normoactive bowel sounds, no guarding, no rebound, no masses. LOWER EXTREMITIES: warm, well-perfused. No calf tenderness. No peripheral edema. PSYCHIATRIC: Cooperative. Good eye contact. SKIN: Warm, dry, 09/09/17 09/09/17 09/09/17 05:30 05:30 05:30 WBC 16.1 H RBC 4.24 Hgb 12.7 Hct 38.1 MCV 89.8 MCH 29.9 MCHC 33.3 RDW 16.6 H Plt Count 279 MPV 9.7 PTT (Actin FS) VBG pH POC VBG pCO2 POC VBG pO2 Mixed VBG HCO3 Sodium 144 Potassium 4.2 Chloride 107 Carbon Dioxide 30 Anion Gap 7 L BUN 18 Creatinine 1.0 Creat Clearance w eGFR 53.21 Random Glucose 118 H Calcium 8.8 Phosphorus 3.8 Magnesium 2.5 H Urine Color Urine Appearance Urine pH Ur Specific [place] Urine Protein Urine Glucose (UA) Urine Ketones Urine Blood Urine Nitrite Urine Bilirubin Urine Urobilinogen Ur Leukocyte Esterase Urine WBC (Auto) Urine RBC (Auto) Ur Epithelial Cells Hyaline Casts Urine Mucus Blood Type A POSITIVE Antibody Screen Negative Active Medications Generic Name Dose Route Start Last Admin Trade Name Krystal PRN Reason Stop Dose Admin Acetaminophen 1,000 mg 09/09/17 12:45 Ofirmev Injection - IVPB Q6H PRN PAIN LEVEL 1-5 Ascorbic Acid 500 mg 09/09/17 10:00 09/09/17 10:01 Vitamin C - PO Not Given DAILY [facility] Chlorhexidine Gluconate 1 applic 09/08/17 22:00 09/08/17 21:36 Hibiclens For Decolonization - TP 1 applic HS [facility] Administration Cholecalciferol 5,000 unit 09/09/17 10:00 09/09/17 10:01 Vitamin D3 - PO Not Given DAILY [facility] Cyanocobalamin 1,000 mcg 09/09/17 10:00 09/09/17 10:01 Vitamin B12 - PO Not Given DAILY [facility] Digoxin 0.125 mg 09/09/17 10:00 09/09/17 09:59 Lanoxin - PO 0.125 mg DAILY [facility] Administration Diltiazem HCl 180 mg 09/09/17 10:00 09/09/17 09:59 Cardizem Cd - PO 180 mg DAILY [facility] Administration Furosemide 40 mg 09/10/17 10:00 Lasix - PO Q2D [facility] Heparin Sodium (Porcine) 1,000 unit 09/08/17 13:35 09/08/17 23:48 Heparin - IVPUSH 1,000 unit PRN PRN Administration Heparin Heparin Sodium (Porcine) 5,000 unit 09/08/17 13:35 Heparin - IVPUSH PRN PRN Heparin Heparin Sodium (Porcine) 5,000 unit 09/09/17 14:00 Heparin - SQ TID [facility] Hydralazine HCl 25 mg 09/08/17 22:00 09/09/17 09:59 Apresoline - PO 25 mg BID [facility] Administration Heparin Sodium/Dextrose 25,000 units in 500 mls @ 16 mls/hr 09/08/17 13:45 00:00 Heparin Infusion - IVPB 0 units/hr TITR [facility] 0 mls/hr Titration Protocol 800 UNITS/HR Ceftriaxone Sodium 1 gm/ 50 mls @ 100 mls/hr 09/08/17 14:45 09/09/17 09:58 Dextrose IVPB 100 mls/hr DAILY [facility] Administration Protocol Magnesium Oxide 400 mg 09/08/17 22:00 09/09/17 10:01 Mag-Ox - PO Not Given BID [facility] Metoprolol Succinate 25 mg 09/09/17 10:00 09/09/17 10:00 Toprol Xl - PO 25 mg DAILY [facility] Administration Morphine Sulfate 2 mg 09/09/17 13:58 Morphine Sulfate IVPUSH Q4H PRN PAIN LEVEL 6-10 Mupirocin 1 applic 09/08/17 22:00 09/09/17 10:00 Bactroban Ointment (For Decolonization) - NS 09/13/17 21:59 Not Given BID [facility] Non-Formulary Medication 1 each 09/09/17 10:00 Fluticasone/Vilanterol [Breo Ellipta 100-25 Mcg Inh] IH DAILY [facility] Oxycodone HCl 5 mg 09/08/17 12:54 09/09/17 05:09 Roxicodone - PO 5 mg Q4H PRN Administration PAIN LEVEL 6-10 Pyridoxine HCl 50 mg 09/09/17 10:00 09/09/17 10:01 Vitamin B6 - PO Not Given DAILY [facility] Sertraline HCl 25 mg 09/09/17 10:00 09/09/17 10:01 Zoloft - PO Not Given DAILY [facility] Sucralfate 1 gm 09/09/17 10:00 09/09/17 10:00 Carafate Oral Suspension - PO Not Given DAILY [facility] Valsartan 320 mg 09/09/17 10:00 09/09/17 09:58 Diovan - PO 320 mg DAILY [facility] Administration ASSESSMENT/PLAN: Acute on Chronic Hypoxic Respiratory Failure likely from pleural effusion with collapse lung. 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 - In view of lung collapse and pleural effusion and progressive nature of oat cell ca we rediscussed the chemotherapy with patient. - Will ask RT to see, but would prefer chemotherapy if patient agrees Dispo: We will continue to follow the patient. Thank you for this consultative opportunity. Visit type - Emergency Visit Emergency Visit: Yes ED Registration Date: 09/08/17 Care time: The patient presented to the Emergency Department on the above date and was hospitalized for further evaluation of their emergent condition. - New Patient This patient is new to me today: Yes Date on this admission: 09/10/17 - Critical Care Critical Care patient: Yes Total Critical Care Time (in minutes): 45 Critical Care Statement: The care of this patient involved high complexity decision making to prevent further life threatening deterioration of the patient 's condition and/or to evaluate & treat vital organ system(s) failure or risk of failure.
[2017-09-09] MEDS: morphine SULFATE 4 MG/ML VIAL IVPUSH PRN ×2 (14:20→21:19)
--- NOTE | 2017-09-09 19:08 | PN ---
Physical Exam: SUBJECTIVE: Patient seen and examined this am and eveing in icu. Pt resting in bed on venti mask 50%. Stating she has severe pain on right thorax. Labored breathing. OBJECTIVE: Vital Signs Period Temp Pulse Resp BP Sys/Wahl Pulse Ox Last 24 Hr 98.0 F-99.0 F 61-86 17-24 106-178/44-97 94-100 GENERAL: Frail, labored breathing HEAD: NC/AT EYES: EOMI. ENT: Thrush residing. No teeth. NECK: Trachea midline. Sternocledomastoid muscles noticeable visible 2/2 weight loss. LUNGS: Rt side dec BS, crackles. Left better aerated, still decreased. HEART: RRR, no MRG. ABDOMEN: NT, ND, No HSM. EXTREMITIES: No CCE NEUROLOGICAL: No focal Deficits PSYCH: Normal mood, normal affect. SKIN:healing wound right lower leg. Black lesion right back Laboratory Results - last 24 hr 09/08/17 09/08/17 09/08/17 05:40 20:20 23:00 WBC RBC Hgb Hct MCV MCH MCHC RDW Plt Count MPV PTT (Actin FS) 43.8 D VBG pH 7.22 L* D POC VBG pCO2 82.4 H* D POC VBG pO2 22.2 L Mixed VBG HCO3 32.3 H Sodium Potassium Chloride Carbon Dioxide Anion Gap BUN Creatinine Creat Clearance w eGFR Random Glucose Calcium Phosphorus Magnesium Urine Color Yellow Urine Appearance Clear Urine pH 6.0 Ur Specific [place] 1.020 Urine Protein 1+ H Urine Glucose (UA) 1+ H Urine Ketones Negative Urine Blood Negative Urine Nitrite Negative Urine Bilirubin Negative Urine Urobilinogen Negative Ur Leukocyte Esterase Trace Urine WBC (Auto) 5 Urine RBC (Auto) 1 Ur Epithelial Cells Rare Hyaline Casts 4 Urine Mucus Rare Blood Type Antibody Screen 09/09/17 09/09/17 09/09/17 05:30 05:30 05:30 WBC 16.1 H RBC 4.24 Hgb 12.7 Hct 38.1 MCV 89.8 MCH 29.9 MCHC 33.3 RDW 16.6 H Plt Count 279 MPV 9.7 PTT (Actin FS) VBG pH POC VBG pCO2 POC VBG pO2 Mixed VBG HCO3 Sodium 144 Potassium 4.2 Chloride 107 Carbon Dioxide 30 Anion Gap 7 L BUN 18 Creatinine 1.0 Creat Clearance w eGFR 53.21 Random Glucose 118 H Calcium 8.8 Phosphorus 3.8 Magnesium 2.5 H Urine Color Urine Appearance Urine pH Ur Specific [place] Urine Protein Urine Glucose (UA) Urine Ketones Urine Blood Urine Nitrite Urine Bilirubin Urine Urobilinogen Ur Leukocyte Esterase Urine WBC (Auto) Urine RBC (Auto) Ur Epithelial Cells Hyaline Casts Urine Mucus Blood Type A POSITIVE Antibody Screen Negative 09/09/17 05:30 WBC RBC Hgb Hct MCV MCH MCHC RDW Plt Count MPV PTT (Actin FS) 31.3 VBG pH POC VBG pCO2 POC VBG pO2 Mixed VBG HCO3 Sodium Potassium Chloride Carbon Dioxide Anion Gap BUN Creatinine Creat Clearance w eGFR Random Glucose Calcium Phosphorus Magnesium Urine Color Urine Appearance Urine pH Ur Specific [place] Urine Protein Urine Glucose (UA) Urine Ketones Urine Blood Urine Nitrite Urine Bilirubin Urine Urobilinogen Ur Leukocyte Esterase Urine WBC (Auto) Urine RBC (Auto) Ur Epithelial Cells Hyaline Casts Urine Mucus Blood Type Antibody Screen Active Medications Generic Name Dose Route Start Last Admin Trade Name Freq PRN Reason Stop Dose Admin Acetaminophen 1,000 mg 09/09/17 12:45 09/09/17 13:20 Ofirmev Injection - IVPB 1,000 mg Q6H PRN Administration PAIN LEVEL 1-5 Ascorbic Acid 500 mg 09/09/17 10:00 09/09/17 10:01 Vitamin C - PO Not Given DAILY [facility] Chlorhexidine Gluconate 1 applic 09/08/17 22:00 09/08/17 21:36 Hibiclens For Decolonization - TP 1 applic HS [facility] Administration Cholecalciferol 5,000 unit 09/09/17 10:00 09/09/17 10:01 Vitamin D3 - PO Not Given DAILY [facility] Cyanocobalamin 1,000 mcg 09/09/17 10:00 09/09/17 10:01 Vitamin B12 - PO Not Given DAILY [facility] Digoxin 0.125 mg 09/09/17 10:00 09/09/17 09:59 Lanoxin - PO 0.125 mg DAILY [facility] Administration Diltiazem HCl 180 mg 09/09/17 10:00 09/09/17 09:59 Cardizem Cd - PO 180 mg DAILY [facility] Administration Furosemide 40 mg 09/10/17 10:00 Lasix - PO Q2D [facility] Heparin Sodium (Porcine) 1,000 unit 09/08/17 13:35 09/08/17 23:48 Heparin - IVPUSH 1,000 unit PRN PRN Administration Heparin Heparin Sodium (Porcine) 5,000 unit 09/08/17 13:35 Heparin - IVPUSH PRN PRN Heparin Heparin Sodium (Porcine) 5,000 unit 09/09/17 14:00 09/09/17 13:15 Heparin - SQ Not Given TID [facility] Hydralazine HCl 25 mg 09/08/17 22:00 09/09/17 09:59 Apresoline - PO 25 mg BID [facility] Administration Heparin Sodium/Dextrose 25,000 units in 500 mls @ 16 mls/hr 09/08/17 13:45 00:00 Heparin Infusion - IVPB 0 units/hr TITR [facility] 0 mls/hr Titration Protocol 800 UNITS/HR Ceftriaxone Sodium 1 gm/ 50 mls @ 100 mls/hr 09/08/17 14:45 09/09/17 09:58 Dextrose IVPB 100 mls/hr DAILY [facility] Administration Protocol Magnesium Oxide 400 mg 09/08/17 22:00 09/09/17 10:01 Mag-Ox - PO Not Given BID [facility] Metoprolol Succinate 25 mg 09/09/17 10:00 09/09/17 10:00 Toprol Xl - PO 25 mg DAILY [facility] Administration Morphine Sulfate 2 mg 09/09/17 13:58 09/09/17 14:20 Morphine Sulfate IVPUSH 2 mg Q4H PRN Administration PAIN LEVEL 6-10 Mupirocin 1 applic 09/08/17 22:00 09/09/17 10:00 Bactroban Ointment (For Decolonization) - NS 09/13/17 21:59 Not Given BID [facility] Non-Formulary Medication 1 each 09/09/17 10:00 Fluticasone/Vilanterol [Breo Ellipta 100-25 Mcg Inh] IH DAILY [facility] Oxycodone HCl 5 mg 09/08/17 12:54 09/09/17 16:35 Roxicodone - PO 5 mg Q4H PRN Administration PAIN LEVEL 6-10 Pyridoxine HCl 50 mg 09/09/17 10:00 09/09/17 10:01 Vitamin B6 - PO Not Given DAILY [facility] Sertraline HCl 25 mg 09/09/17 10:00 09/09/17 10:01 Zoloft - PO Not Given DAILY [facility] Sucralfate 1 gm 09/09/17 10:00 09/09/17 10:00 Carafate Oral Suspension - PO Not Given DAILY [facility] Valsartan 320 mg 09/09/17 10:00 09/09/17 09:58 Diovan - PO 320 mg DAILY [facility] Administration ASSESSMENT/PLAN: 81y/o lady with a past medical history of COPD, asthma, Afib, CAD, PUD, GERD and Neuroendocrine Small Cell Carcinoma- Lung. 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 Moderate centrilobular emphysema in left upper lobe. Obstruction/collapse of the airway at the right mainstem bronchus. -Venti Mask 40%. Possible Pneumonia -I.D on board -1 GM Ceftriaxone started -Pleural Fluid Culture Pending. - monitor chest tube drainage -inhaled bronchodilators FEN No Fluids Monitor Electrolytes Clear Liquid. DVT ppx Heparin 58551 U gtt Dispo: Continue to monitor in icu. Visit type - Emergency Visit Emergency Visit: Yes ED Registration Date: 09/08/17 Care time: The patient presented to the Emergency Department on the above date and was hospitalized for further evaluation of their emergent condition. - New Patient This patient is new to me today: No - Critical Care Critical Care patient: Yes Total Critical Care Time (in minutes): 36 Critical Care Statement: The care of this patient involved high complexity decision making to prevent further life threatening deterioration of the patient 's condition and/or to evaluate & treat vital organ system(s) failure or risk of failure.
--- NOTE | 2017-09-09 19:21 | PN ---
Teaching Attending Note Name of Resident: Juanito Melendez ATTENDING PHYSICIAN STATEMENT I saw and evaluated the patient. I reviewed the resident's note and discussed the case with the resident. I agree with the resident's findings and plan as documented. SUBJECTIVE:Progressive oat cell ca of lung. Presented with pleural effusion, lung collapse requiring VATS and chest tube drainage with pleur ex catheter have previously met with patient and family and discussed question of systemic chemotherapy. Patient and family considering. Will ask RT to see, but would prefer chemotherapy if patient agrees. - OBJECTIVE: ASSESSMENT AND PLAN:
[2017-09-09] MEDS: CHLORHEXIDINE GLUCONATE 4% CLEANSER FOR DECOLONIZATION TP SCH (21:20)
[2017-09-09] MEDS: HEPARIN INFUSION - 25,000 UNITS/500 ML INFUS.BAG IVPB SCH (21:29)
[2017-09-10] MEDS: HEPARIN NA (PORCINE) 5,000 UNITS/ML 1ML VIAL SQ SCH ×2 (05:52→13:43)
[2017-09-10 06:00] LABS: HEMATOCRIT 37.6 % (32.4-45.2); HEMOGLOBIN 12.3 GM/dL (10.7-15.3); MCH 29.7 pg (25.7-33.7); MCHC 32.6 g/dl (32.0-36.0); MEAN CELL VOLUME 91.2 fl (80-96); MEAN PLT VOLUME 9.7 fl (7.5-11.1); PLATELET COUNT 226 K/MM3 (134-434); RBC 4.13 M/mm3 (3.60-5.2); RDW 16.7 % (11.6-15.6)
[2017-09-10 06:34] LABS: ANION GAP 5 (8-16); BLOOD UREA NITROGEN 19 mg/dL (7-18); CALCIUM 8.3 mg/dL (8.5-10.1); CHLORIDE 107 mmol/L (98-107); CO2 34 mmol/L (21-32); CREATININE 0.8 mg/dL (0.55-1.02); GLUCOSE,RANDOM 87 mg/dL (74-106); MAGNESIUM 2.3 mg/dL (1.8-2.4); SODIUM 146 mmol/L (136-145)
[2017-09-10 06:35] LABS: PHOSPHOROUS 2.5 mg/dL (2.5-4.9)
[2017-09-10] MEDS: morphine SULFATE 4 MG/ML VIAL IVPUSH PRN (06:48)
--- NOTE | 2017-09-10 08:15 | PN ---
Progress Note (short form) - Note Progress Note: POD#1 Pt with improved cough, occasional pain. Vital Signs Period Temp Pulse Resp BP Sys/Wahl Pulse Ox Last 24 Hr 98.0 F-99.0 F 60-83 15-28 106-152/44-97 93-97 uop-1500ml serous fluid CV:RRR Lungs: CTA b/l anteriorly Chest: dressing c/d/i, no air leak. pleur-x cath off suction CBC, BMP 09/10/ 05:30 09/10/18 05:30 cxr: minimal change, pleur-x in place, no pntx A/P: 81 yo female s/p R VATS/pleur-x cath placment for malignant pleural effusion Diet advanced this am Daily CXR OOB/incentive spirometer Follow up culture of fluid sent from OR CT to wall suction today, may to off suction for ambulation/tests May resume oral anticoagulation Care plan, D/w Dr. Bonilla
--- NOTE | 2017-09-10 08:43 | PN ---
Progress Note (short form) - Note Progress Note: Anesthesia postop note 81 y/o F s/p MAC for pleurex insertion POD#1, in ICU, aaox3, vss, pain fairly well controlled No anesthesia complications.
[2017-09-10] MEDS ORDERED: FUROSEMIDE 40 MG TABLET (FP) PO SCH (10:00)
[2017-09-10] MEDS ORDERED: PT OWN MED DRAWER 7, Y5N ONE (10:15)
[2017-09-10] MEDS ORDERED: cefTRIAXone SODIUM 1 GM VIAL ONE (10:15)
[2017-09-10] MEDS ORDERED: DEXTROSE 5%-WATER - 50 ML IVPB ONE (10:16)
[2017-09-10] MEDS: oxyCODONE HCL 5 MG TABLET PO PRN ×3 (10:19→22:39)
[2017-09-10] MEDS: CHOLECALCIFEROL (VITAMIN D3) 1,000 UNIT TABLET (FP) PO SCH (10:21)
[2017-09-10] MEDS: VALSARTAN 160 MG TABLET (UD) PO SCH (10:22)
[2017-09-10] MEDS: MAGNESIUM OXIDE 400 MG TABLET (FP) PO SCH ×2 (10:23→21:27)
[2017-09-10] MEDS: DIGOXIN 0.125 MG TABLET (FP) PO SCH (10:23)
[2017-09-10] MEDS: hydrALAZINE HCL 25 MG TABLET (FP) PO SCH ×2 (10:23→21:27)
[2017-09-10] MEDS: ASCORBIC ACID 500 MG TABLET (FP) PO SCH (10:24)
[2017-09-10] MEDS: metoPROLOL SUCCINATE 25 MG TAB.SR.24H (FP) PO SCH (10:24)
[2017-09-10] MEDS: CEFTRIAXONE 1 GM in DEXTROSE 5%-WATER - 50 ML IVPB SCH (10:24)
[2017-09-10] MEDS: SERTRALINE HCL 25 MG TABLET (FP) PO SCH (10:25)
[2017-09-10] MEDS: SUCRALFATE 1 GM/10 ML UNIT DOSE CUPS PO SCH (10:25)
[2017-09-10] MEDS: PYRIDOXINE HCL (B-6) 50 MG TABLET (FP) PO SCH (10:25)
[2017-09-10] MEDS: CYANOCOBALAMIN 1,000 MCG TABLET (FP) PO SCH (10:25)
[2017-09-10] MEDS: MUPIROCIN 2% TOPICAL OINTMENT FOR DECOLONIZATION NS SCH ×2 (10:26→21:20)
--- NOTE | 2017-09-10 12:24 | PN ---
Teaching Attending Note Name of Resident: Shaquille Archer ATTENDING PHYSICIAN STATEMENT I saw and evaluated the patient. I reviewed the resident's note and discussed the case with the resident. I agree with the resident's findings and plan as documented. SUBJECTIVE: Patient seen and examined in the ICU. Still mildly tachypneic at rest. Splinting as she is concerned about becoming "addicted" to the pain medications. PleureX attached to Pleura-vac and draining serous fluid. OBJECTIVE: Intake & Output 09/07/17 09/08/17 09/09/17 09/10/17 23:59 23:59 23:59 23:59 Intake Total 1454 672 250 Output Total 200 1390 360 Balance 1254 -718 -110 Weight 114 lb 13.773 oz 116 lb 114 lb 4.8 oz Last Vital Signs Temp Pulse Resp BP Pulse Ox 98.1 F 63 28 H 95/57 93 L 09/10/17 10:00 09/10/17 10:23 09/10/17 10:00 09/10/17 10:00 09/10/17 06:53 Active Medications Acetaminophen (Ofirmev Injection -) 1,000 mg IVPB Q6H PRN PRN Reason: PAIN LEVEL 1-5 Last Admin: 09/09/17 13:20 Dose: 1,000 mg Ascorbic Acid (Vitamin C -) 500 mg PO DAILY [facility] Last Admin: 09/10/17 10:24 Dose: 500 mg Chlorhexidine Gluconate (Hibiclens For Decolonization -) 1 applic TP HS [facility] Last Admin: 09/09/17 21:20 Dose: 1 applic Cholecalciferol (Vitamin D3 -) 5,000 unit PO DAILY [facility] Last Admin: 09/10/17 10:21 Dose: 5,000 unit Cyanocobalamin (Vitamin B12 -) 1,000 mcg PO DAILY [facility] Last Admin: 09/10/17 10:25 Dose: 1,000 mcg Digoxin (Lanoxin -) 0.125 mg PO DAILY [facility] Last Admin: 09/10/17 10:23 Dose: 0.125 mg Diltiazem HCl (Cardizem Cd -) 180 mg PO DAILY [facility] Last Admin: 09/10/17 10:22 Dose: 180 mg Furosemide (Lasix -) 40 mg PO Q2D [facility] Last Admin: 09/10/17 10:25 Dose: 40 mg Heparin Sodium (Porcine) (Heparin -) 1,000 unit IVPUSH PRN PRN PRN Reason: Heparin Last Admin: 09/08/17 23:48 Dose: 1,000 unit Heparin Sodium (Porcine) (Heparin -) 5,000 unit IVPUSH PRN PRN PRN Reason: Heparin Heparin Sodium (Porcine) (Heparin -) 5,000 unit SQ TID [facility] Last Admin: 09/10/17 05:52 Dose: 5,000 unit Hydralazine HCl (Apresoline -) 25 mg PO BID [facility] Last Admin: 09/10/17 10:23 Dose: 25 mg Heparin Sodium/Dextrose (Heparin Infusion -) 25,000 units in 500 mls @ 16 mls/ hr IVPB TITR [facility]; Protocol Last Admin: 09/09/17 21:29 Dose: Not Given Ceftriaxone Sodium 1 gm/ (Dextrose) 50 mls @ 100 mls/hr IVPB DAILY [facility]; Protocol Last Admin: 09/10/17 10:24 Dose: 100 mls/hr Magnesium Oxide (Mag-Ox -) 400 mg PO BID [facility] Last Admin: 09/10/17 10:23 Dose: 400 mg Metoprolol Succinate (Toprol Xl -) 25 mg PO DAILY [facility] Last Admin: 09/10/17 10:24 Dose: 25 mg Morphine Sulfate (Morphine Sulfate) 2 mg IVPUSH Q4H PRN PRN Reason: PAIN LEVEL 6-10 Last Admin: 09/10/17 06:48 Dose: 2 mg Mupirocin (Bactroban Ointment (For Decolonization) -) 1 applic NS BID [facility] Stop: 09/13/17 21:59 Last Admin: 09/10/17 10:26 Dose: Not Given Non-Formulary Medication (Fluticasone/Vilanterol [Breo Ellipta 100-25 Mcg Inh]) 1 each IH DAILY [facility] Oxycodone HCl (Roxicodone -) 5 mg PO Q4H PRN PRN Reason: PAIN LEVEL 6-10 Last Admin: 09/10/17 10:19 Dose: 5 mg Pyridoxine HCl (Vitamin B6 -) 50 mg PO DAILY [facility] Last Admin: 09/10/17 10:25 Dose: 50 mg Sertraline HCl (Zoloft -) 25 mg PO DAILY [facility] Last Admin: 09/10/17 10:25 Dose: 25 mg Sucralfate (Carafate Oral Suspension -) 1 gm PO DAILY [facility] Last Admin: 09/10/17 10:25 Dose: 1 gm Valsartan (Diovan -) 320 mg PO DAILY [facility] Last Admin: 09/10/17 10:22 Dose: 320 mg Gen: Mildly Tachypneic at rest Heart: RRR Lung: decreased breath sounds on right, scattered rhonchi Abd: soft, nontender Ext: no edema Laboratory Results - last 24 hr 09/10/17 09/10/17 09/10/17 05:30 05:30 05:30 WBC 14.0 H RBC 4.13 Hgb 12.3 Hct 37.6 MCV 91.2 MCH 29.7 MCHC 32.6 RDW 16.7 H Plt Count 226 MPV 9.7 PTT (Actin FS) 26.6 Sodium 146 H Potassium 4.0 Chloride 107 Carbon Dioxide 34 H Anion Gap 5 L BUN 19 H Creatinine 0.8 Creat Clearance w eGFR > 60 Random Glucose 87 Calcium 8.3 L Phosphorus 2.5 Magnesium 2.3 ASSESSMENT AND PLAN: Acute on Chronic Hypoxic Respiratory Failure Progressive Small Cell Ca with endobronchial involvement Right Pleural Effusion s/p R VATS/pleur-x placement r/o Pneumonia COPD Paroxysmal Atrial Fibrillation s/p PPM PAD - Monitor chest tube drainage - O2 to keep SpO2 >90% - Inhaled bronchodilators - Rate controlled - On IV Heparin drip - ABX per ID - NIPPV as needed to assist in work of breathing - ICU monitoring Dr Palomino Critical care time spent in reviewing chart, evaluating patient and formulating plan 36 min
--- NOTE | 2017-09-10 12:38 | PN ---
Progress Note, Physician Chief Complaint: Ms Moncada says she is having pain at pleurx catheter site and has difficulty taking a deep breath. Denies n/v. - Current Medication List Current Medications: Active Medications Acetaminophen (Ofirmev Injection -) 1,000 mg IVPB Q6H PRN PRN Reason: PAIN LEVEL 1-5 Last Admin: 09/09/17 13:20 Dose: 1,000 mg Ascorbic Acid (Vitamin C -) 500 mg PO DAILY [facility] Last Admin: 09/10/17 10:24 Dose: 500 mg Chlorhexidine Gluconate (Hibiclens For Decolonization -) 1 applic TP HS [facility] Last Admin: 09/09/17 21:20 Dose: 1 applic Cholecalciferol (Vitamin D3 -) 5,000 unit PO DAILY [facility] Last Admin: 09/10/17 10:21 Dose: 5,000 unit Cyanocobalamin (Vitamin B12 -) 1,000 mcg PO DAILY [facility] Last Admin: 09/10/17 10:25 Dose: 1,000 mcg Digoxin (Lanoxin -) 0.125 mg PO DAILY [facility] Last Admin: 09/10/17 10:23 Dose: 0.125 mg Diltiazem HCl (Cardizem Cd -) 180 mg PO DAILY [facility] Last Admin: 09/10/17 10:22 Dose: 180 mg Furosemide (Lasix -) 40 mg PO Q2D [facility] Last Admin: 09/10/17 10:25 Dose: 40 mg Heparin Sodium (Porcine) (Heparin -) 1,000 unit IVPUSH PRN PRN PRN Reason: Heparin Last Admin: 09/08/17 23:48 Dose: 1,000 unit Heparin Sodium (Porcine) (Heparin -) 5,000 unit IVPUSH PRN PRN PRN Reason: Heparin Heparin Sodium (Porcine) (Heparin -) 5,000 unit SQ TID [facility] Last Admin: 09/10/17 05:52 Dose: 5,000 unit Hydralazine HCl (Apresoline -) 25 mg PO BID [facility] Last Admin: 09/10/17 10:23 Dose: 25 mg Heparin Sodium/Dextrose (Heparin Infusion -) 25,000 units in 500 mls @ 16 mls/ hr IVPB TITR [facility]; Protocol Last Admin: 09/09/17 21:29 Dose: Not Given Ceftriaxone Sodium 1 gm/ (Dextrose) 50 mls @ 100 mls/hr IVPB DAILY [facility]; Protocol Last Admin: 09/10/17 10:24 Dose: 100 mls/hr Magnesium Oxide (Mag-Ox -) 400 mg PO BID [facility] Last Admin: 09/10/17 10:23 Dose: 400 mg Metoprolol Succinate (Toprol Xl -) 25 mg PO DAILY [facility] Last Admin: 09/10/17 10:24 Dose: 25 mg Morphine Sulfate (Morphine Sulfate) 2 mg IVPUSH Q4H PRN PRN Reason: PAIN LEVEL 6-10 Last Admin: 09/10/17 06:48 Dose: 2 mg Mupirocin (Bactroban Ointment (For Decolonization) -) 1 applic NS BID [facility] Stop: 09/13/17 21:59 Last Admin: 09/10/17 10:26 Dose: Not Given Non-Formulary Medication (Fluticasone/Vilanterol [Breo Ellipta 100-25 Mcg Inh]) 1 each IH DAILY [facility] Oxycodone HCl (Roxicodone -) 5 mg PO Q4H PRN PRN Reason: PAIN LEVEL 6-10 Last Admin: 09/10/17 10:19 Dose: 5 mg Pyridoxine HCl (Vitamin B6 -) 50 mg PO DAILY [facility] Last Admin: 09/10/17 10:25 Dose: 50 mg Sertraline HCl (Zoloft -) 25 mg PO DAILY [facility] Last Admin: 09/10/17 10:25 Dose: 25 mg Sucralfate (Carafate Oral Suspension -) 1 gm PO DAILY [facility] Last Admin: 09/10/17 10:25 Dose: 1 gm Valsartan (Diovan -) 320 mg PO DAILY [facility] Last Admin: 09/10/17 10:22 Dose: 320 mg - Objective Vital Signs: Vital Signs Temperature 36.7 C 09/10/17 10:00 Pulse Rate 63 09/10/17 10:23 Respiratory Rate 28 H 09/10/17 10:00 Blood Pressure 95/57 09/10/17 10:00 O2 Sat by Pulse Oximetry (%) 93 L 09/10/17 06:53 Constitutional: Yes: No Distress, Calm, Thin Cardiovascular: Yes: Regular Rate and Rhythm. No: Gallop, Murmur, Rub Respiratory: Yes: Regular, On Nasal O2, Rhonchi. No: CTA Bilaterally, Rales, Wheezes Gastrointestinal: Yes: Normal Bowel Sounds, Soft. No: Distention, Tenderness Extremities: Yes: WNL Edema: No Labs: CBC, BMP 09/10/17 05:30 09/10/17 05:30 INR, PTT INR 1.34 (0.83-1.09) 09/08/17 05:40 Problem List - Problems (1) Acute and chronic respiratory failure with hypoxia Code(s): J96.21 - ACUTE AND CHRONIC RESPIRATORY FAILURE WITH HYPOXIA (2) Pleural effusion Code(s): J90 - PLEURAL EFFUSION, NOT ELSEWHERE CLASSIFIED (3) COPD exacerbation Code(s): J44.1 - CHRONIC OBSTRUCTIVE PULMONARY DISEASE W (ACUTE) EXACERBATION (4) Lung cancer Code(s): C34.90 - MALIGNANT NEOPLASM OF UNSP PART OF UNSP BRONCHUS OR LUNG Qualifiers: Laterality: right Lung location: unspecified part of lung Qualified Code( s): C34.91 - Malignant neoplasm of unspecified part of right bronchus or lung (5) Atrial fibrillation Code(s): I48.91 - UNSPECIFIED ATRIAL FIBRILLATION Qualifiers: Atrial fibrillation type: chronic Qualified Code(s): I48.2 - Chronic atrial fibrillation (6) CHF (congestive heart failure) Code(s): I50.9 - HEART FAILURE, UNSPECIFIED (7) Hyperlipidemia Code(s): E78.5 - HYPERLIPIDEMIA, UNSPECIFIED (8) Hypertension Code(s): I10 - ESSENTIAL (PRIMARY) HYPERTENSION (9) Pacemaker Code(s): Z95.0 - PRESENCE OF CARDIAC PACEMAKER Assessment/Plan (1) Acute and chronic respiratory failure with hypoxia Assessment/Plan: -pleurx catheter placed -improving -pain control for pleuritic pain Code(s): J96.21 - ACUTE AND CHRONIC RESPIRATORY FAILURE WITH HYPOXIA (2) Pleural effusion Assessment/Plan: -malignant -as above Code(s): J90 - PLEURAL EFFUSION, NOT ELSEWHERE CLASSIFIED (3) COPD exacerbation Assessment/Plan: -stable -continue oxygen support -continue inhalers Code(s): J44.1 - CHRONIC OBSTRUCTIVE PULMONARY DISEASE W (ACUTE) EXACERBATION (4) Lung cancer Assessment/Plan: -high grade neuroendocrine small cell carcinoma Code(s): C34.90 - MALIGNANT NEOPLASM OF UNSP PART OF UNSP BRONCHUS OR LUNG Qualifiers: Laterality: right Lung location: unspecified part of lung Qualified Code( s): C34.91 - Malignant neoplasm of unspecified part of right bronchus or lung (5) Atrial fibrillation Assessment/Plan: -controlled -on heparin gtt Code(s): I48.91 - UNSPECIFIED ATRIAL FIBRILLATION Qualifiers: Atrial fibrillation type: chronic Qualified Code(s): I48.2 - Chronic atrial fibrillation (6) CHF (congestive heart failure) Assessment/Plan: -continue lasix Code(s): I50.9 - HEART FAILURE, UNSPECIFIED Qualifiers: Qualified Code(s): I50.9 - Heart failure, unspecified (7) Hyperlipidemia Assessment/Plan: -considering overall prognosis, will stop statin Code(s): E78.5 - HYPERLIPIDEMIA, UNSPECIFIED (8) Hypertension Assessment/Plan: -continue home regimen -monitor Code(s): I10 - ESSENTIAL (PRIMARY) HYPERTENSION (9) Pacemaker Code(s): Z95.0 - PRESENCE OF CARDIAC PACEMAKER Dispo -palliative care team consulted for goals of care 31 minutes in critical care time
[2017-09-10] MEDS: ACETAMINOPHEN 1000 MG/100 ML VIAL (NON FORMULARY) IVPB PRN (13:44)
--- NOTE | 2017-09-10 15:20 | PN ---
Progress Note (short form) - Note Progress Note: s/p chest tube looks much more comfortable Vital Signs Period Temp Pulse Resp BP Sys/Wahl Pulse Ox Last 24 Hr 98.1 F-98.9 F 60-77 15-28 95-135/45-69 93-97 cor-rrr lungs decresed bs right base abd soft, nt ext no edema CBC, BMP 09/10/17 05:30 09/10/17 05:30 Microbiology 09/09/17 12:24 Pleural Fluid Body Fluid Culture - Preliminary NO AEROBIC GROWTH, 24 HRS 09/08/17 23:00 Urine - Urine Clean Catch Urine Culture - Final 09/08/17 05:40 Blood - Peripheral Venous Blood Culture - Preliminary NO GROWTH OBTAINED AFTER 48 HOURS, INCUBATION TO CONTINUE FOR 3 DAYS. 09/08/17 05:40 Blood - Peripheral Venous Blood Culture - Preliminary NO GROWTH OBTAINED AFTER 48 HOURS, INCUBATION TO CONTINUE FOR 3 DAYS. a/p suspected malignant pleural effusion doubt empyema agree with plans for thoracentesis received vanco/zosyn in ed switch to ceftriaxone-can d/c in am if cultures are negative chest ct thrush- start nystatin swish and swallow please sent fluid for routine culture/afb and fungal as well as cytology-d/w icu resident Problem List - Problems (1) SOB (shortness of breath) Code(s): R06.02 - SHORTNESS OF BREATH (2) Pleural effusion Code(s): J90 - PLEURAL EFFUSION, NOT ELSEWHERE CLASSIFIED (3) Lung cancer Code(s): C34.90 - MALIGNANT NEOPLASM OF UNSP PART OF UNSP BRONCHUS OR LUNG Qualifiers: Laterality: right Lung location: unspecified part of lung Qualified Code( s): C34.91 - Malignant neoplasm of unspecified part of right bronchus or lung
--- NOTE | 2017-09-10 18:05 | PN ---
Physical Exam: SUBJECTIVE: Patient seen and examined this am in icu. Pt fully alert and cooperative. C/o right flank pain at site of VATS and Pleur-x catheter. OBJECTIVE: Vital Signs Period Temp Pulse Resp BP Sys/Wahl Pulse Ox Last 24 Hr 98.1 F-98.9 F 60-75 15-28 95-135/45-69 93-97 GENERAL: Frail, labored breathing HEAD: NC/AT EYES: EOMI. ENT: Thrush residing. No teeth. NECK: Trachea midline. Sternocledomastoid muscles noticeable visible 2/2 weight loss. LUNGS: Rt side dec BS, crackles. Left better aerated, still decreased. HEART: RRR, no MRG. ABDOMEN: NT, ND, No HSM. EXTREMITIES: No CCE NEUROLOGICAL: No focal Deficits PSYCH: Normal mood, normal affect. SKIN: healing wound right lower leg. Black lesion right back Laboratory Results - last 24 hr 09/10/17 09/10/17 09/10/17 05:30 05:30 05:30 WBC 14.0 H RBC 4.13 Hgb 12.3 Hct 37.6 MCV 91.2 MCH 29.7 MCHC 32.6 RDW 16.7 H Plt Count 226 MPV 9.7 PTT (Actin FS) 26.6 Sodium 146 H Potassium 4.0 Chloride 107 Carbon Dioxide 34 H Anion Gap 5 L BUN 19 H Creatinine 0.8 Creat Clearance w eGFR > 60 Random Glucose 87 Calcium 8.3 L Phosphorus 2.5 Magnesium 2.3 Active Medications Generic Name Dose Route Start Last Admin Trade Name Freq PRN Reason Stop Dose Admin Acetaminophen 650 mg 09/10/17 15:17 Tylenol - PO Q4H PRN FEVER Apixaban 2.5 mg 09/10/17 22:00 Eliquis - PO BID [facility] Ascorbic Acid 500 mg 09/09/17 10:00 09/10/17 10:24 Vitamin C - PO 500 mg DAILY [facility] Administration Chlorhexidine Gluconate 1 applic 09/08/17 22:00 09/09/17 21:20 Hibiclens For Decolonization - TP 1 applic HS [facility] Administration Cholecalciferol 5,000 unit 09/09/17 10:00 09/10/17 10:21 Vitamin D3 - PO 5,000 unit DAILY [facility] Administration Cyanocobalamin 1,000 mcg 09/09/17 10:00 09/10/17 10:25 Vitamin B12 - PO 1,000 mcg DAILY [facility] Administration Digoxin 0.125 mg 09/09/17 10:00 09/10/17 10:23 Lanoxin - PO 0.125 mg DAILY [facility] Administration Diltiazem HCl 180 mg 09/09/17 10:00 09/10/17 10:22 Cardizem Cd - PO 180 mg DAILY [facility] Administration Fentanyl 100 mcg 09/10/17 14:29 Sublimaze Injection - IVPUSH Q6H PRN PAIN LEVEL 6-10 Furosemide 40 mg 09/10/17 10:00 09/10/17 10:25 Lasix - PO 40 mg Q2D [facility] Administration Hydralazine HCl 25 mg 09/08/17 22:00 09/10/17 10:23 Apresoline - PO 25 mg BID [facility] Administration Ceftriaxone Sodium 1 gm/ 50 mls @ 100 mls/hr 09/08/17 14:45 09/10/17 10:24 Dextrose IVPB 100 mls/hr DAILY [facility] Administration Protocol Magnesium Oxide 400 mg 09/08/17 22:00 09/10/17 10:23 Mag-Ox - PO 400 mg BID [facility] Administration Metoprolol Succinate 25 mg 09/09/17 10:00 09/10/17 10:24 Toprol Xl - PO 25 mg DAILY [facility] Administration Mupirocin 1 applic 09/08/17 22:00 09/10/17 10:26 Bactroban Ointment (For Decolonization) - NS 09/13/17 21:59 Not Given BID [facility] Non-Formulary Medication 1 each 09/09/17 10:00 Fluticasone/Vilanterol [Breo Ellipta 100-25 Mcg Inh] IH DAILY [facility] Oxycodone HCl 5 mg 09/08/17 12:54 09/10/17 16:00 Roxicodone - PO 5 mg Q4H PRN Administration PAIN LEVEL 6-10 Pyridoxine HCl 50 mg 09/09/17 10:00 09/10/17 10:25 Vitamin B6 - PO 50 mg DAILY [facility] Administration Sertraline HCl 25 mg 09/09/17 10:00 09/10/17 10:25 Zoloft - PO 25 mg DAILY [facility] Administration Sucralfate 1 gm 09/09/17 10:00 09/10/17 10:25 Carafate Oral Suspension - PO 1 gm DAILY [facility] Administration Valsartan 320 mg 09/09/17 10:00 09/10/17 10:22 Diovan - PO 320 mg DAILY [facility] Administration ASSESSMENT/PLAN: 81y/o lady with a past medical history of COPD, asthma, Afib, CAD, PUD, GERD and Neuroendocrine Small Cell Carcinoma- Lung. Suspected large Malignant Right effusion 2/2 Neuroendocrine Small Cell Carcinoma -CTS on Board -S/p Right vats placement of pleur-x with Dr Bonilla -Chest CT 09/09/2017--> Right hilar mediastinal mass is now inseparable from and essentially collapsed right lung with partial relative sparing of the right lobe to large right is present. Moderate centrilobular emphysema in left upper lobe. Obstruction/collapse of the airway at the right mainstem bronchus. -Nasal Canula 3L. Chest XRAY 09/10--> Rt pleural effusion and atelectasis. Possible Pneumonia -I.D on board -1 GM Ceftriaxone -Pleural Fluid Culture Pending. No Aerobic growth after 24 hours. - monitor chest tube drainage -inhaled bronchodilators FEN No Fluids Monitor Electrolytes Clear Liquid. DVT ppx Heparin [id number] U gtt Dispo: Continue to monitor in icu. Visit type - Emergency Visit Emergency Visit: Yes ED Registration Date: 09/08/17 Care time: The patient presented to the Emergency Department on the above date and was hospitalized for further evaluation of their emergent condition. - New Patient This patient is new to me today: No - Critical Care Critical Care patient: Yes Total Critical Care Time (in minutes): 36 Critical Care Statement: The care of this patient involved high complexity decision making to prevent further life threatening deterioration of the patient 's condition and/or to evaluate & treat vital organ system(s) failure or risk of failure.
[2017-09-10] MEDS: CHLORHEXIDINE GLUCONATE 4% CLEANSER FOR DECOLONIZATION TP SCH (21:20)
[2017-09-10] MEDS: APIXABAN 2.5 MG TABLET PO SCH (21:26)
--- NOTE | 2017-09-10 22:55 | PN ---
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 Pt feels better in terms of SOB but c/o pain at surgical site. Cytology pending to r/o malignant effusion. Prior staging w/u shows no evidence of metastatic disease. In view of possibility of limited stage SCLC, would ideally consider concurrent chemoradiaton. Given advancing age and marginal PS however, not unreasonable to consider sequential therapy or proceeding with chemotherapy and reconsidering addition of RT pending pt tolerance and response. Discussed with pt who seems indifferent. Will d/w family and medical oncology.
[2017-09-11] MEDS: oxyCODONE HCL 5 MG TABLET PO PRN ×4 (03:40→20:22)
[2017-09-11] MEDS: ACETAMINOPHEN 325 MG TABLET (FP) PO PRN ×2 (06:30→20:24)
[2017-09-11 07:20] LABS: HEMOGLOBIN 12.9 GM/dL (10.7-15.3); MCH 29.9 pg (25.7-33.7); MCHC 33.1 g/dl (32.0-36.0); MEAN CELL VOLUME 90.4 fl (80-96); MEAN PLT VOLUME 9.4 fl (7.5-11.1); PLATELET COUNT 218 K/MM3 (134-434); RBC 4.31 M/mm3 (3.60-5.2); RDW 16.5 % (11.6-15.6); WHITE BLOOD COUNT 11.3 K/mm3 (4.0-10.0)
[2017-09-11] MEDS ORDERED: cefTRIAXone SODIUM 1 GM VIAL ONE (09:01)
[2017-09-11] MEDS ORDERED: DEXTROSE 5%-WATER - 50 ML IVPB ONE (09:01)
[2017-09-11] MEDS: CHOLECALCIFEROL (VITAMIN D3) 1,000 UNIT TABLET (FP) PO SCH (09:10)
[2017-09-11] MEDS: SERTRALINE HCL 25 MG TABLET (FP) PO SCH (09:10)
[2017-09-11] MEDS: APIXABAN 2.5 MG TABLET PO SCH ×2 (09:10→21:08)
[2017-09-11] MEDS: MAGNESIUM OXIDE 400 MG TABLET (FP) PO SCH ×2 (09:10→21:08)
[2017-09-11] MEDS: CYANOCOBALAMIN 1,000 MCG TABLET (FP) PO SCH (09:11)
[2017-09-11] MEDS: ASCORBIC ACID 500 MG TABLET (FP) PO SCH (09:11)
[2017-09-11] MEDS: CEFTRIAXONE 1 GM in DEXTROSE 5%-WATER - 50 ML IVPB SCH (09:13)
[2017-09-11] MEDS: DIGOXIN 0.125 MG TABLET (FP) PO SCH (09:13)
[2017-09-11] MEDS: VALSARTAN 160 MG TABLET (UD) PO SCH (10:21)
[2017-09-11] MEDS: metoPROLOL SUCCINATE 25 MG TAB.SR.24H (FP) PO SCH (10:22)
[2017-09-11] MEDS: hydrALAZINE HCL 25 MG TABLET (FP) PO SCH (10:23)
[2017-09-11] MEDS ORDERED: PT OWN MED DRAWER 7, Y5N ONE (10:47)
[2017-09-11] MEDS: SUCRALFATE 1 GM/10 ML UNIT DOSE CUPS PO SCH (10:48)
[2017-09-11] MEDS: PYRIDOXINE HCL (B-6) 50 MG TABLET (FP) PO SCH (10:49)
--- NOTE | 2017-09-11 10:58 | CONS ---
DATE OF CONSULTATION: 09/10/2017 REFERRING PHYSICIAN: Salinas Garibay MD REASON FOR CONSULTATION: Oat cell lung cancer. 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 Scan showed a 6-cm right hilar mass surrounding the right middle lobe bronchus extending into the subcarinal region with right middle lobe atelectasis and right pleural effusion with paratracheal lymphadenopathy in May. She had a head CT and bone scan which showed no evidence of distant metastatic disease. The bronchoscopy showed an endobronchial lesion near the right main stem bronchus, which was biopsied showing the aforementioned histologic malignancy. She did have a thoracentesis at that time which failed to confirm a malignant effusion. She has a pacemaker, so was unable to have an MRI. She has had discussions about therapy and has not commenced any treatment to date. She has had recent CT of the chest that showed progression of her cancer with collapse of the right lung and significant effusion. She underwent a VATS and PleurX Catheter placement and drainage of the fluid. She states that she feels better at this time in terms of her breathing, but has the pain at the chest tube site. She has no history of radiation therapy or collagen vascular disease. No prior chemotherapy to date. PAST MEDICAL HISTORY: Atrial fibrillation, coronary artery disease, hypertension, hyperlipidemia, COPD, C. difficile infection, osteoarthritis, appendectomy, hysterectomy, permanent pacemaker placement 10 years ago, arterial bypass graft in the lower extremities followed by bilateral vascular stents, cataract surgery. ALLERGIES: MELATONIN, VANCOMYCIN, ZOLPIDEM. CURRENT MEDICATIONS: Fluticasone, Diovan, magnesium oxide, ceftriaxone, Eliquis , Zoloft, Toprol, Cardizem, Lanoxin, hydralazine, Lasix, Carafate, vitamin B12, vitamin B6, vitamin C, vitamin D. FAMILY HISTORY: No history of malignancy. SOCIAL HISTORY: She is . She had 6 children, 3 are still alive. 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 She smoked 1 pack per day from her teens and quit 15 years ago. She has a history of alcohol use. REVIEW OF SYSTEMS: Denies headache, dizziness, blurry vision, nausea, vomiting, hemoptysis, hoarseness. She has a dry cough, which is associated with her right chest pain at the chest tube site. No changes in bowel or bladder habits. No back pain, abdominal pain, paresthesias, or extremity weakness. In addition to that noted previously, the remainder of review of systems is negative. PHYSICAL EXAMINATION General: Elderly, frail, female in no acute distress. She is in good spirits. Vital signs: Temperature 98.6, blood pressure 102/45, pulse 60, respiratory rate 20, SaO2 at 94% on 2 L nasal cannula. Her height is 5 feet 2 inches. Her weight is 114 pounds. HEENT: Moist mucous membranes. Anicteric sclerae. Clear oral cavity without mucositis. Neck: No cervical adenopathy. Chest: Decreased breath sounds on the right. Right chest tube site clean, dry , and intact, draining serosanguinous fluid on suction. Abdomen: Soft, nontender, nondistended. Extremities: No peripheral edema. Neurologic: Nonfocal. Left chest pacemaker is present. LABORATORY DATA: WBC 14, hemoglobin 12.3, platelets 226. BUN 19, creatinine 0.8, calcium 8.3, sodium 146, potassium 4. Liver function tests within normal limits. RADIOLOGIC DATA: See HPI. PATHOLOGIC DATA: See HPI. 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 She is status post VATS (video-assisted thoracoscopic surgery) and PleurX Catheter drainage. Prior staging workup shows no evidence of metastatic disease. In view of possibility of limited stage small cell lung cancer, we would ideally consider concurrent chemoradiation to offer maximum chance of cure and survival , but given her advancing age and marginal performance status at this time, it would not be unreasonable to consider sequential therapy or proceeding with chemotherapy and then reconsidering the addition of radiation therapy pending her tolerance and response to chemotherapy. I discussed this with the patient, who seems indifferent and wishes to discuss it with her family. PLAN: Discussion with medical oncology is planned. I would favor proceeding with chemotherapy if the patient is amenable. Thank you for asking me to participate in the care of this yash patient. LAKIA GUNDERSON M.D. [id number] cc: Salinas Garibay MD MTDD
--- NOTE | 2017-09-11 11:12 | PN ---
Progress Note, Physician History of Present Illness: PULMONARY ALERT,FEELING BETTER,LESS DYSPNEIC,-CP. CHEST TUBE DRAINAGE 120CC OVERNIGHT - Current Medication List Current Medications: Active Medications Acetaminophen (Tylenol -) 650 mg PO Q4H PRN PRN Reason: FEVER Last Admin: 09/11/17 06:30 Dose: 650 mg Apixaban (Eliquis -) 2.5 mg PO BID [facility] Last Admin: 09/11/17 09:10 Dose: 2.5 mg Ascorbic Acid (Vitamin C -) 500 mg PO DAILY [facility] Last Admin: 09/11/17 09:11 Dose: 500 mg Cholecalciferol (Vitamin D3 -) 5,000 unit PO DAILY [facility] Last Admin: 09/11/17 09:10 Dose: 5,000 unit Cyanocobalamin (Vitamin B12 -) 1,000 mcg PO DAILY [facility] Last Admin: 09/11/17 09:11 Dose: 1,000 mcg Digoxin (Lanoxin -) 0.125 mg PO DAILY [facility] Last Admin: 09/11/17 09:13 Dose: 0.125 mg Diltiazem HCl (Cardizem Cd -) 180 mg PO DAILY [facility] Last Admin: 09/11/17 10:22 Dose: Not Given Fentanyl (Sublimaze Injection -) 100 mcg IVPUSH Q6H PRN PRN Reason: PAIN LEVEL 6-10 Furosemide (Lasix -) 40 mg PO Q2D [facility] Last Admin: 09/10/17 10:25 Dose: 40 mg Hydralazine HCl (Apresoline -) 25 mg PO BID [facility] Last Admin: 09/11/17 10:23 Dose: Not Given Ceftriaxone Sodium 1 gm/ (Dextrose) 50 mls @ 100 mls/hr IVPB DAILY [facility]; Protocol Last Admin: 09/11/17 09:13 Dose: 100 mls/hr Magnesium Oxide (Mag-Ox -) 400 mg PO BID [facility] Last Admin: 09/11/17 09:10 Dose: 400 mg Metoprolol Succinate (Toprol Xl -) 25 mg PO DAILY [facility] Last Admin: 09/11/17 10:22 Dose: Not Given Non-Formulary Medication (Fluticasone/Vilanterol [Breo Ellipta 100-25 Mcg Inh]) 1 each IH DAILY [facility] Oxycodone HCl (Roxicodone -) 5 mg PO Q4H PRN PRN Reason: PAIN LEVEL 6-10 Last Admin: 09/11/17 09:08 Dose: 5 mg Pyridoxine HCl (Vitamin B6 -) 50 mg PO DAILY [facility] Last Admin: 09/11/17 10:49 Dose: 50 mg Sertraline HCl (Zoloft -) 25 mg PO DAILY [facility] Last Admin: 09/11/17 09:10 Dose: 25 mg Sucralfate (Carafate Oral Suspension -) 1 gm PO DAILY [facility] Last Admin: 09/11/17 10:48 Dose: Not Given Valsartan (Diovan -) 320 mg PO DAILY [facility] Last Admin: 09/11/17 10:21 Dose: Not Given - Objective Vital Signs: Vital Signs Temperature 96.5 F L 09/11/17 05:44 Pulse Rate 64 09/11/17 09:13 Respiratory Rate 20 09/11/17 05:44 Blood Pressure 107/51 09/11/17 05:44 O2 Sat by Pulse Oximetry (%) 95 09/11/17 07:20 Constitutional: Yes: Calm, Thin Eyes: Yes: WNL HENT: Yes: WNL Neck: Yes: WNL Cardiovascular: Yes: Pulse Irregular, S1, S2 Respiratory: Yes: Diminished Gastrointestinal: Yes: Normal Bowel Sounds, Soft Extremities: Yes: WNL Edema: No Labs: CBC, BMP 09/11/17 05:50 09/10/17 05:30 INR, PTT INR 1.34 (0.83-1.09) 09/08/17 05:40 Problem List - Problems (1) Acute and chronic respiratory failure with hypoxia Code(s): J96.21 - ACUTE AND CHRONIC RESPIRATORY FAILURE WITH HYPOXIA (2) COPD exacerbation Code(s): J44.1 - CHRONIC OBSTRUCTIVE PULMONARY DISEASE W (ACUTE) EXACERBATION (3) Lung cancer Code(s): C34.90 - MALIGNANT NEOPLASM OF UNSP PART OF UNSP BRONCHUS OR LUNG Qualifiers: Laterality: right Lung location: unspecified part of lung Qualified Code( s): C34.91 - Malignant neoplasm of unspecified part of right bronchus or lung (4) Pleural effusion Code(s): J90 - PLEURAL EFFUSION, NOT ELSEWHERE CLASSIFIED (5) Respiratory distress Code(s): R06.03 - ACUTE RESPIRATORY DISTRESS (6) SOB (shortness of breath) Code(s): R06.02 - SHORTNESS OF BREATH (7) Atrial fibrillation Code(s): I48.91 - UNSPECIFIED ATRIAL FIBRILLATION Qualifiers: Atrial fibrillation type: chronic Qualified Code(s): I48.2 - Chronic atrial fibrillation (8) Lung mass Code(s): R91.8 - OTHER NONSPECIFIC ABNORMAL FINDING OF LUNG FIELD (9) PAD (peripheral artery disease) Code(s): I73.9 - PERIPHERAL VASCULAR DISEASE, UNSPECIFIED (10) Pacemaker Code(s): Z95.0 - PRESENCE OF CARDIAC PACEMAKER Assessment/Plan ASSESSMENT AND PLAN: Acute on Chronic Hypoxic Respiratory Failure improving Progressive Small Cell Ca with endobronchial involvement Right Pleural Effusion s/p R VATS/pleur-x placement r/o Pneumonia COPD Paroxysmal Atrial Fibrillation s/p PPM PAD - Monitor chest tube drainage - O2 to keep SpO2 >90% - Inhaled bronchodilators - Rate controlled - On IV Heparin drip - ABX per ID - NIPPV as needed to assist in work of breathing DR GRANDE
--- NOTE | 2017-09-11 11:30 | PN ---
Progress Note, Physician Chief Complaint: pt sitting in chair in no acute distress. reports breathing better. reports localized incisional pain. Otherwise , denies any chest pain, worsening sob, n/v /d - Current Medication List Current Medications: Active Medications Acetaminophen (Tylenol -) 650 mg PO Q4H PRN PRN Reason: FEVER Last Admin: 09/11/17 06:30 Dose: 650 mg Apixaban (Eliquis -) 2.5 mg PO BID [facility] Last Admin: 09/11/17 09:10 Dose: 2.5 mg Ascorbic Acid (Vitamin C -) 500 mg PO DAILY [facility] Last Admin: 09/11/17 09:11 Dose: 500 mg Cholecalciferol (Vitamin D3 -) 5,000 unit PO DAILY [facility] Last Admin: 09/11/17 09:10 Dose: 5,000 unit Cyanocobalamin (Vitamin B12 -) 1,000 mcg PO DAILY [facility] Last Admin: 09/11/17 09:11 Dose: 1,000 mcg Digoxin (Lanoxin -) 0.125 mg PO DAILY [facility] Last Admin: 09/11/17 09:13 Dose: 0.125 mg Diltiazem HCl (Cardizem Cd -) 180 mg PO DAILY [facility] Last Admin: 09/11/17 10:22 Dose: Not Given Fentanyl (Sublimaze Injection -) 100 mcg IVPUSH Q6H PRN PRN Reason: PAIN LEVEL 6-10 Furosemide (Lasix -) 40 mg PO Q2D [facility] Last Admin: 09/10/17 10:25 Dose: 40 mg Hydralazine HCl (Apresoline -) 25 mg PO BID [facility] Last Admin: 09/11/17 10:23 Dose: Not Given Ceftriaxone Sodium 1 gm/ (Dextrose) 50 mls @ 100 mls/hr IVPB DAILY [facility]; Protocol Last Admin: 09/11/17 09:13 Dose: 100 mls/hr Magnesium Oxide (Mag-Ox -) 400 mg PO BID [facility] Last Admin: 09/11/17 09:10 Dose: 400 mg Metoprolol Succinate (Toprol Xl -) 25 mg PO DAILY [facility] Last Admin: 09/11/17 10:22 Dose: Not Given Non-Formulary Medication (Fluticasone/Vilanterol [Breo Ellipta 100-25 Mcg Inh]) 1 each IH DAILY [facility] Oxycodone HCl (Roxicodone -) 5 mg PO Q4H PRN PRN Reason: PAIN LEVEL 6-10 Last Admin: 09/11/17 09:08 Dose: 5 mg Pyridoxine HCl (Vitamin B6 -) 50 mg PO DAILY [facility] Last Admin: 09/11/17 10:49 Dose: 50 mg Sertraline HCl (Zoloft -) 25 mg PO DAILY [facility] Last Admin: 09/11/17 09:10 Dose: 25 mg Sucralfate (Carafate Oral Suspension -) 1 gm PO DAILY [facility] Last Admin: 09/11/17 10:48 Dose: Not Given Valsartan (Diovan -) 320 mg PO DAILY [facility] Last Admin: 09/11/17 10:21 Dose: Not Given - Objective Vital Signs: Vital Signs Temperature 96.5 F L 09/11/17 05:44 Pulse Rate 64 09/11/17 09:13 Respiratory Rate 20 09/11/17 05:44 Blood Pressure 107/51 09/11/17 05:44 O2 Sat by Pulse Oximetry (%) 95 09/11/17 07:20 Constitutional: Yes: Well Nourished, No Distress, Calm, Thin Cardiovascular: Yes: Pulse Irregular Respiratory: Yes: Regular, Diminished, On Nasal O2, Other (chest tube in place) . No: Accessory Muscle Use Gastrointestinal: Yes: WNL, Normal Bowel Sounds, Soft. No: Distention, Tenderness Genitourinary: Yes: WNL Extremities: Yes: WNL Edema: No Integumentary: Yes: Bruising (delgado incisional), Incision Wound/Incision: Yes: Dressing Dry and Intact Neurological: Yes: WNL, Alert, Oriented Psychiatric: Yes: WNL, Alert, Oriented Labs: CBC, BMP 09/11/17 05:50 09/10/17 05:30 INR, PTT INR 1.34 (0.83-1.09) 09/08/17 05:40 Assessment/Plan (1) Acute and chronic respiratory failure with hypoxia Assessment/Plan: s/p pleurx catheter, monitor outpt improving O2 via NC prn adequate pain control pulm following Code(s): J96.21 - ACUTE AND CHRONIC RESPIRATORY FAILURE WITH HYPOXIA (2) Pleural effusion Assessment/Plan: suspect malignant cytology pending Code(s): J90 - PLEURAL EFFUSION, NOT ELSEWHERE CLASSIFIED (3) COPD exacerbation Assessment/Plan: stable Code(s): J44.1 - CHRONIC OBSTRUCTIVE PULMONARY DISEASE W (ACUTE) EXACERBATION (4) Lung cancer Assessment/Plan: 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- plan for chemo if pt/family prefers palliative team consult pending Code(s): C34.90 - MALIGNANT NEOPLASM OF UNSP PART OF UNSP BRONCHUS OR LUNG Qualifiers: Laterality: right Lung location: unspecified part of lung Qualified Code( s): C34.91 - Malignant neoplasm of unspecified part of right bronchus or lung (5) Atrial fibrillation Assessment/Plan: controlled continue eliquis, metoprolol Code(s): I48.91 - UNSPECIFIED ATRIAL FIBRILLATION Qualifiers: Atrial fibrillation type: chronic Qualified Code(s): I48.2 - Chronic atrial fibrillation (6) CHF (congestive heart failure) Assessment/Plan: stable continue lasix Code(s): I50.9 - HEART FAILURE, UNSPECIFIED Qualifiers: Qualified Code(s): I50.9 - Heart failure, unspecified (7) Hyperlipidemia Assessment/Plan: statin stopped b/c of poor prognosis Code(s): E78.5 - HYPERLIPIDEMIA, UNSPECIFIED (8) Hypertension Assessment/Plan: often hypotensive here, on multiple hypertensive meds cardiology consulted for med management for this pt Code(s): I10 - ESSENTIAL (PRIMARY) HYPERTENSION (9) Pacemaker Code(s): Z95.0 - PRESENCE OF CARDIAC PACEMAKER
[2017-09-11 13:52] LABS: TOTAL PROTEIN,PLEURAL FLUID 2.129
--- NOTE | 2017-09-11 14:14 | CON.CARD ---
Consult Consult Specialty:: Cardiology Referred by:: Dacia Reason for Consultation:: hypotension - History of Present Illness Chief Complaint: hypotension History of Present Illness: 81 f hx afib, htn, hld, tachy/maricruz syndrome s/p ppm, copd, pad s/p rle bypass, possible cad (equivocal MIBI), chronic sob/briones/palps likely related to anxiety, esophageal ca s/p laser treatment, neuroendocrine small cell carcinoma of lung p /w shortness of breath. She had a large right sided pleural effusion, had VATS and pleur-x catheter placed during this hospitalization. Sees Dr. Torres for cardiology as outpatient. last seen 07/2017 . - Past Medical History Cardio/Vascular: Yes: AFIB, CAD, HTN, Hyperlipdemia Pulmonary: Yes: COPD Infectious Disease: Yes: C-Diff Musculoskeletal: Yes: Osteoarthritis - Past Surgical History Past Surgical History: Yes: Appendectomy, Hysterectomy, Permanent Pacemaker - Alcohol/Substance Use Hx Alcohol Use: No - Smoking History Smoking history: Never smoked Have you smoked in the past 12 months: No Aproximately how many cigarettes per day: 0 If you are a former smoker, when did you quit?: 2002 - Social History Usual Living Arrangement: Alone ADL: Independent History of Recent Travel: No Home Medications - Allergies Allergies/Adverse Reactions: Allergies Allergy/AdvReac Type Severity Reaction Status Date / Time melatonin Allergy Mild Nausea Verified 09/08/17 05:14 vancomycin AdvReac Mild Nausea Verified 09/08/17 05:14 zolpidem AdvReac Unknown Verified 09/08/17 05:14 zolpidem tartrate AdvReac Unknown Verified 09/08/17 05:14 [From Rosarioien] - Home Medications Home Medications: Ambulatory Orders Ascorbic Acid [Vitamin C -] 500 mg PO DAILY 05/09/17 Atorvastatin Ca [Lipitor] 10 mg PO HS 05/09/17 Cholecalciferol (Vitamin D3) [Vitamin D3] 5,000 unit PO DAILY 05/09/17 Cyanocobalamin [Vitamin B12 -] 1,000 mcg PO DAILY 05/09/17 Digoxin [Lanoxin -] 0.125 mg PO DAILY 05/09/17 Diltiazem HCl [Tiazac] 180 mg PO DAILY 05/09/17 Fluticasone/Vilanterol [Breo Ellipta 100-25 Mcg INH] 1 each IH DAILY 05/09/17 Hydralazine HCl 25 mg PO BID 05/09/17 Magnesium Oxide [Magnesium] 400 mg PO BID 05/09/17 Pyridoxine HCl (B-6) [Vitamin B6 -] 50 mg PO DAILY 05/09/17 Sertraline HCl 25 mg PO DAILY 05/09/17 Valsartan 320 mg PO DAILY 05/09/17 oxyCODONE HCL [Roxicodone -] 5 mg PO BID PRN 05/09/17 Apixaban [Eliquis -] 2.5 mg PO BID #60 tablet 05/18/17 Furosemide [Lasix -] 40 mg PO Q2D tablet 05/18/17 Metoprolol Succinate [Toprol XL -] 25 mg PO DAILY #30 tab.sr.24h 05/18/17 Albuterol Sulfate Inhaler - [Ventolin Hfa Inhaler -] 1 - 2 inh PO PRN PRN Sucralfate [Carafate] 1 gm PO DAILY 07/15/17 Review of Systems - Review of Systems Constitutional: reports: No Symptoms Eyes: reports: No Symptoms HENT: reports: No Symptoms Neck: reports: No Symptoms Cardiovascular: reports: Shortness of Breath Respiratory: reports: No Symptoms Gastrointestinal: reports: No Symptoms Musculoskeletal: reports: No Symptoms Endocrine: reports: No Symptoms Vital Signs: Vital Signs Temperature 97.7 F 09/11/17 10:00 Pulse Rate 64 09/11/17 10:00 Respiratory Rate 20 09/11/17 10:00 Blood Pressure 106/48 09/11/17 10:00 O2 Sat by Pulse Oximetry (%) 96 09/11/17 09:00 Constitutional: Yes: Well Nourished, No Distress, Calm Eyes: Yes: Conjunctiva Clear, EOM Intact HENT: Yes: Atraumatic, Normocephalic Neck: Yes: Supple, Trachea Midline Respiratory: Yes: Regular, CTA Bilaterally Gastrointestinal: Yes: Normal Bowel Sounds, Soft Cardiovascular: Yes: Regular Rate and Rhythm Edema: No Neurological: Yes: Alert, Oriented Psychiatric: Yes: Alert, Oriented - Other Data Labs, Other Data: CBC, BMP 09/11/17 05:50 09/10/17 05:30 INR, PTT INR 1.34 (0.83-1.09) 09/08/17 05:40 Assessment/Plan MIBI 05/21 (dobut): no STs, minimal apical isch vs variable brst (small LV/hyper EF) Echo 05/2016 ([facility]): tds; nl lv, nl rv size, mild , mild mr, mild-mod tr; rvsp 40-50, mod ao root dil EKG 09/08/17 V paced Tele: V paced, occ PVCs 81 f hx afib, htn, hld, tachy/maricruz syndrome s/p ppm, copd, pad s/p rle bypass, possible cad (equivocal MIBI), chronic sob/briones/palps likely related to anxiety, esophageal ca s/p laser treatment, neuroendocrine small cell carcinoma of lung p /w shortness of breath now s/p VATS and pleur-x catheter placement with hypotension Hypotension - at home was on diltiazem, metoprolol, ARB for HTN - dc hydralazine, per Dr. Torres note had a history of hypotension on hydralazine s/p PPM - last interrogated 07/2017 stable function Afib - dig, dilt, eliquis at home, continue CAD - hx equivocal stress - on arb, statin at home, continue h/o HFPEF - on lasix 40 every other day at home, continue PAD s/p bypass - continue ARB, statin
--- NOTE | 2017-09-11 14:22 | PN ---
Progress Note (short form) - Note Progress Note: Patient seen and examined Complains of pain at surgical site. Continues with significant drainage via chest tube Cytology pending. Appetite somewhat improved On oxygen Some diarrhea Last Vital Signs Temp Pulse Resp BP Pulse Ox 97.7 F 64 20 106/48 96 09/11/17 10:00 09/11/17 10:00 09/11/17 10:00 09/11/17 10:00 09/11/17 09:00 HEENT: JANNETH, EOM Intact Oropharynx: No thrush, No mucositis,dentures Cor:regular paced rhythm Lungs: diminished breath sounds with crackles throughout Abd: Soft, Normal bowel sounds, No organomegaly Ext:No significant edema Skin: No rashes, Integument intact ABG Results ABG pH 7.31 (7.35-7.45) L 09/08/17 07:00 ABG pCO2 at Pt Temp 56.5 mmHg (35-45) H D 09/08/17 07:00 ABG pO2 at Pt Temp 125.0 mmHg (68-100) H D 09/08/17 07:00 ABG HCO3 27.7 meq/L (22-26) H 09/08/17 07:00 ABG O2 Sat (Measured) 98.8 % (90-98.9) 09/08/17 07:00 ABG O2 Content 17.7 % vol (15-22) 09/08/17 07:00 ABG Base Excess 0.9 meq/l (-2-2) 09/08/17 07:00 CBC, BMP 09/11/17 05:50 09/10/17 05:30 Current Medications Generic Name Dose Route Start Last Admin Trade Name Freq PRN Reason Stop Dose Admin Acetaminophen 650 mg 09/10/17 15:17 09/11/17 06:30 Tylenol - PO 650 mg Q4H PRN Administration FEVER Apixaban 2.5 mg 09/10/17 22:00 09/11/17 09:10 Eliquis - PO 2.5 mg BID [facility] Administration Ascorbic Acid 500 mg 09/09/17 10:00 09/11/17 09:11 Vitamin C - PO 500 mg DAILY [facility] Administration Cholecalciferol 5,000 unit 09/09/17 10:00 09/11/17 09:10 Vitamin D3 - PO 5,000 unit DAILY [facility] Administration Cyanocobalamin 1,000 mcg 09/09/17 10:00 09/11/17 09:11 Vitamin B12 - PO 1,000 mcg DAILY [facility] Administration Digoxin 0.125 mg 09/09/17 10:00 09/11/17 09:13 Lanoxin - PO 0.125 mg DAILY [facility] Administration Diltiazem HCl 180 mg 09/09/17 10:00 09/11/17 10:22 Cardizem Cd - PO Not Given DAILY [facility] Fentanyl 100 mcg 09/10/17 14:29 Sublimaze Injection - IVPUSH Q6H PRN PAIN LEVEL 6-10 Furosemide 40 mg 09/10/17 10:00 09/10/17 10:25 Lasix - PO 40 mg Q2D [facility] Administration Hydralazine HCl 25 mg 09/08/17 22:00 09/11/17 10:23 Apresoline - PO Not Given BID [facility] Ceftriaxone Sodium 1 gm/ 50 mls @ 100 mls/hr 09/08/17 14:45 09/11/17 09:13 Dextrose IVPB 100 mls/hr DAILY [facility] Administration Protocol Magnesium Oxide 400 mg 09/08/17 22:00 09/11/17 09:10 Mag-Ox - PO 400 mg BID [facility] Administration Metoprolol Succinate 25 mg 09/09/17 10:00 09/11/17 10:22 Toprol Xl - PO Not Given DAILY [facility] Non-Formulary Medication 1 each 09/09/17 10:00 Fluticasone/Vilanterol [Breo Ellipta 100-25 Mcg Inh] IH DAILY [facility] Oxycodone HCl 5 mg 09/08/17 12:54 09/11/17 09:08 Roxicodone - PO 5 mg Q4H PRN Administration PAIN LEVEL 6-10 Pyridoxine HCl 50 mg 09/09/17 10:00 09/11/17 10:49 Vitamin B6 - PO 50 mg DAILY [facility] Administration Sertraline HCl 25 mg 09/09/17 10:00 09/11/17 09:10 Zoloft - PO 25 mg DAILY [facility] Administration Sucralfate 1 gm 09/09/17 10:00 09/11/17 10:48 Carafate Oral Suspension - PO Not Given DAILY [facility] Valsartan 320 mg 09/09/17 10:00 09/11/17 10:21 Diovan - PO Not Given DAILY [facility] Impression: High grade Neuroendocrine tumor S/P VATS with pleurex catheter for large right effusion Cytology pending RT note seen. Agree that frail nature of patient is such that she is not a good candidate for combined modality therapy. Also agree that chemotherapy rather than RT is preferred initial treatment. If patient agrees, would consider post surgical.
--- NOTE | 2017-09-11 16:18 | PN ---
Progress Note (short form) - Note Progress Note: s/p chest tube looks much more comfortable Vital Signs Period Temp Pulse Resp BP Sys/Wahl Pulse Ox Last 24 Hr 96.5 F-98.4 F 61-72 20-20 98-125/42-60 93-96 cor-rrr lungs decreased bs at the bases abd soft,nt ext no edema +ct CBC, BMP 09/11/17 05:50 09/10/17 05:30 Microbiology 09/09/17 12:24 Pleural Fluid Gram Stain - Final 09/09/17 12:24 Pleural Fluid Body Fluid Culture - Final NO GROWTH OF AEROBIC ORGANISMS AFTER 48 HOURS INCUBATION 09/09/17 12:24 Pleural Fluid Anaerobic Culture - Final NO ANAEROBES WERE ISOLATED 09/10/17 16:00 Pleural Fluid OANH Preparation - Preliminary 09/10/17 16:00 Pleural Fluid Fungal Culture - Preliminary 09/10/17 16:00 Pleural Fluid AFB Smear Concentration - Preliminary 09/10/17 16:00 Pleural Fluid Mycobacterial Culture - Preliminary 09/08/17 05:40 Blood - Peripheral Venous Blood Culture - Preliminary NO GROWTH OBTAINED AFTER 72 HOURS, INCUBATION TO CONTINUE FOR 2 DAYS. 09/08/17 05:40 Blood - Peripheral Venous Blood Culture - Preliminary NO GROWTH OBTAINED AFTER 72 HOURS, INCUBATION TO CONTINUE FOR 2 DAYS. 09/08/17 23:00 Urine - Urine Clean Catch Urine Culture - Final a/p suspected malignant pleural effusion doubt empyema agree with plans for thoracentesis received vanco/zosyn in ed d/c ceftriaxone thrush- start nystatin swish and swallow Problem List - Problems (1) SOB (shortness of breath) Code(s): R06.02 - SHORTNESS OF BREATH (2) Pleural effusion Code(s): J90 - PLEURAL EFFUSION, NOT ELSEWHERE CLASSIFIED (3) Lung cancer Code(s): C34.90 - MALIGNANT NEOPLASM OF UNSP PART OF UNSP BRONCHUS OR LUNG Qualifiers: Laterality: right Lung location: unspecified part of lung Qualified Code( s): C34.91 - Malignant neoplasm of unspecified part of right bronchus or lung
[2017-09-12] MEDS: ACETAMINOPHEN 325 MG TABLET (FP) PO PRN ×2 (05:45→20:15)
[2017-09-12] MEDS: oxyCODONE HCL 5 MG TABLET PO PRN ×4 (05:45→20:15)
[2017-09-12 07:06] LABS: BASO % 0.3 % (0-2.0); EOS % 2.9 % (0-4.5); HEMATOCRIT 37.8 % (32.4-45.2); HEMOGLOBIN 12.6 GM/dL (10.7-15.3); LYMPH % 9.2 % (8-40); MCH 30.2 pg (25.7-33.7); MCHC 33.3 g/dl (32.0-36.0); MEAN CELL VOLUME 90.4 fl (80-96); MEAN PLT VOLUME 9.3 fl (7.5-11.1); MONO % 11.7 % (3.8-10.2); NEUT % 75.9 % (42.8-82.8); PLATELET COUNT 197 K/MM3 (134-434); RBC 4.18 M/mm3 (3.60-5.2); RDW 16.7 % (11.6-15.6)
[2017-09-12 07:40] LABS: BLOOD UREA NITROGEN 19 mg/dL (7-18); CHLORIDE 101 mmol/L (98-107); GLUCOSE,RANDOM 91 mg/dL (74-106); POTASSIUM 4.2 mmol/L (3.5-5.1); SODIUM 141 mmol/L (136-145)
[2017-09-12 07:51] LABS: ANION GAP 4 (8-16); CALCIUM 8.9 mg/dL (8.5-10.1); CO2 36 mmol/L (21-32); CREATININE 0.8 mg/dL (0.55-1.02)
[2017-09-12] MEDS ORDERED: PT OWN MED DRAWER 7, Y5N ONE (09:10)
[2017-09-12] MEDS: SUCRALFATE 1 GM/10 ML UNIT DOSE CUPS PO SCH (09:16)
[2017-09-12] MEDS: FUROSEMIDE 40 MG TABLET (FP) PO SCH (09:17)
[2017-09-12] MEDS: DIGOXIN 0.125 MG TABLET (FP) PO SCH (09:17)
[2017-09-12] MEDS: VALSARTAN 160 MG TABLET (UD) PO SCH (09:17)
[2017-09-12] MEDS: MAGNESIUM OXIDE 400 MG TABLET (FP) PO SCH ×2 (09:18→21:39)
[2017-09-12] MEDS: APIXABAN 2.5 MG TABLET PO SCH ×2 (09:18→21:39)
[2017-09-12] MEDS: ASCORBIC ACID 500 MG TABLET (FP) PO SCH (09:18)
[2017-09-12] MEDS: SERTRALINE HCL 25 MG TABLET (FP) PO SCH (09:19)
[2017-09-12] MEDS: CHOLECALCIFEROL (VITAMIN D3) 1,000 UNIT TABLET (FP) PO SCH (09:19)
[2017-09-12] MEDS: PYRIDOXINE HCL (B-6) 50 MG TABLET (FP) PO SCH (09:19)
[2017-09-12] MEDS: CYANOCOBALAMIN 1,000 MCG TABLET (FP) PO SCH (09:19)
[2017-09-12] MEDS: metoPROLOL SUCCINATE 25 MG TAB.SR.24H (FP) PO SCH (09:19)
[2017-09-12] MEDS ORDERED: CEFTRIAXONE 1 GM in DEXTROSE 5%-WATER - 50 ML IVPB SCH (10:00)
--- NOTE | 2017-09-12 10:58 | PN ---
Progress Note, Physician History of Present Illness: No CV complaints Feels overall very tired Tele: Afib, V-paced - Current Medication List Current Medications: Active Medications Acetaminophen (Tylenol -) 650 mg PO Q4H PRN PRN Reason: FEVER Last Admin: 09/12/17 05:45 Dose: 650 mg Apixaban (Eliquis -) 2.5 mg PO BID [facility] Last Admin: 09/12/17 09:18 Dose: 2.5 mg Ascorbic Acid (Vitamin C -) 500 mg PO DAILY [facility] Last Admin: 09/12/17 09:18 Dose: 500 mg Cholecalciferol (Vitamin D3 -) 5,000 unit PO DAILY [facility] Last Admin: 09/12/17 09:19 Dose: 5,000 unit Cyanocobalamin (Vitamin B12 -) 1,000 mcg PO DAILY [facility] Last Admin: 09/12/17 09:19 Dose: 1,000 mcg Digoxin (Lanoxin -) 0.125 mg PO DAILY [facility] Last Admin: 09/12/17 09:17 Dose: 0.125 mg Diltiazem HCl (Cardizem Cd -) 180 mg PO DAILY [facility] Last Admin: 09/12/17 09:17 Dose: 180 mg Fentanyl (Sublimaze Injection -) 100 mcg IVPUSH Q6H PRN PRN Reason: PAIN LEVEL 6-10 Furosemide (Lasix -) 40 mg PO Q2D [facility] Last Admin: 09/12/17 09:17 Dose: 40 mg Magnesium Oxide (Mag-Ox -) 400 mg PO BID [facility] Last Admin: 09/12/17 09:18 Dose: 400 mg Metoprolol Succinate (Toprol Xl -) 25 mg PO DAILY [facility] Last Admin: 09/12/17 09:19 Dose: 25 mg Non-Formulary Medication (Fluticasone/Vilanterol [Breo Ellipta 100-25 Mcg Inh]) 1 each IH DAILY [facility] Oxycodone HCl (Roxicodone -) 5 mg PO Q4H PRN PRN Reason: PAIN LEVEL 6-10 Last Admin: 09/12/17 05:45 Dose: 5 mg Pyridoxine HCl (Vitamin B6 -) 50 mg PO DAILY [facility] Last Admin: 09/12/17 09:19 Dose: 50 mg Sertraline HCl (Zoloft -) 25 mg PO DAILY [facility] Last Admin: 09/12/17 09:19 Dose: 25 mg Sucralfate (Carafate Oral Suspension -) 1 gm PO DAILY [facility] Last Admin: 09/12/17 09:16 Dose: 1 gm Valsartan (Diovan -) 320 mg PO DAILY [facility] Last Admin: 09/12/17 09:17 Dose: 320 mg - Objective Vital Signs: Vital Signs Temperature 97.6 F 09/12/17 10:00 Pulse Rate 71 09/12/17 10:00 Respiratory Rate 18 09/12/17 10:00 Blood Pressure 166/68 09/12/17 10:00 O2 Sat by Pulse Oximetry (%) 95 09/12/17 10:00 Constitutional: Yes: No Distress, Calm Eyes: Yes: Conjunctiva Clear HENT: Yes: WNL Neck: Yes: WNL Cardiovascular: Yes: WNL, Regular Rate and Rhythm Respiratory: Yes: Diminished Gastrointestinal: Yes: Normal Bowel Sounds Extremities: Yes: WNL Edema: No Labs: CBC, BMP 09/12/17 06:10 09/12/17 06:10 INR, PTT INR 1.34 (0.83-1.09) 09/08/17 05:40 Assessment/Plan 81 f hx afib, htn, hld, tachy/maricruz syndrome s/p ppm, copd, pad s/p rle bypass, possible cad (equivocal MIBI), chronic sob/briones/palps likely related to anxiety, esophageal ca s/p laser treatment, neuroendocrine small cell carcinoma of lung p /w shortness of breath now s/p VATS and pleur-x catheter placement with hypotension Hypotension - at home was on diltiazem, metoprolol, ARB for HTN - dc hydralazine, per Dr. Torres note had a history of hypotension on hydralazine -09/12: BP now elevated off Hydralazine. (166/68mmHg). May consider non- dihydropyridine CCB. s/p PPM - last interrogated 07/2017 stable function Afib - dig, dilt, eliquis at home, continue CAD - hx equivocal stress - on arb, statin at home, continue h/o HFPEF - on lasix 40 every other day at home, continue PAD s/p bypass - continue ARB, statin
--- NOTE | 2017-09-12 12:37 | PN ---
Progress Note, Physician Chief Complaint: No new complaints feels improved - Current Medication List Current Medications: Active Medications Acetaminophen (Tylenol -) 650 mg PO Q4H PRN PRN Reason: FEVER Last Admin: 09/12/17 05:45 Dose: 650 mg Apixaban (Eliquis -) 2.5 mg PO BID [facility] Last Admin: 09/12/17 09:18 Dose: 2.5 mg Ascorbic Acid (Vitamin C -) 500 mg PO DAILY [facility] Last Admin: 09/12/17 09:18 Dose: 500 mg Cholecalciferol (Vitamin D3 -) 5,000 unit PO DAILY [facility] Last Admin: 09/12/17 09:19 Dose: 5,000 unit Cyanocobalamin (Vitamin B12 -) 1,000 mcg PO DAILY [facility] Last Admin: 09/12/17 09:19 Dose: 1,000 mcg Digoxin (Lanoxin -) 0.125 mg PO DAILY [facility] Last Admin: 09/12/17 09:17 Dose: 0.125 mg Diltiazem HCl (Cardizem Cd -) 180 mg PO DAILY [facility] Last Admin: 09/12/17 09:17 Dose: 180 mg Fentanyl (Sublimaze Injection -) 100 mcg IVPUSH Q6H PRN PRN Reason: PAIN LEVEL 6-10 Furosemide (Lasix -) 40 mg PO Q2D [facility] Last Admin: 09/12/17 09:17 Dose: 40 mg Magnesium Oxide (Mag-Ox -) 400 mg PO BID [facility] Last Admin: 09/12/17 09:18 Dose: 400 mg Metoprolol Succinate (Toprol Xl -) 25 mg PO DAILY [facility] Last Admin: 09/12/17 09:19 Dose: 25 mg Non-Formulary Medication (Fluticasone/Vilanterol [Breo Ellipta 100-25 Mcg Inh]) 1 each IH DAILY [facility] Oxycodone HCl (Roxicodone -) 5 mg PO Q4H PRN PRN Reason: PAIN LEVEL 6-10 Last Admin: 09/12/17 11:35 Dose: 5 mg Pyridoxine HCl (Vitamin B6 -) 50 mg PO DAILY [facility] Last Admin: 09/12/17 09:19 Dose: 50 mg Sertraline HCl (Zoloft -) 25 mg PO DAILY [facility] Last Admin: 09/12/17 09:19 Dose: 25 mg Sucralfate (Carafate Oral Suspension -) 1 gm PO DAILY [facility] Last Admin: 09/12/17 09:16 Dose: 1 gm Valsartan (Diovan -) 320 mg PO DAILY [facility] Last Admin: 09/12/17 09:17 Dose: 320 mg - Objective Vital Signs: Vital Signs Temperature 97.6 F 09/12/17 10:00 Pulse Rate 71 09/12/17 10:00 Respiratory Rate 18 09/12/17 10:00 Blood Pressure 166/68 09/12/17 10:00 O2 Sat by Pulse Oximetry (%) 95 09/12/17 10:00 Constitutional: Yes: Well Nourished, No Distress, Calm, Thin Cardiovascular: Yes: Pulse Irregular Respiratory: Yes: Regular, Diminished, On Nasal O2, Other (chest tube in place) . No: Accessory Muscle Use Gastrointestinal: Yes: WNL, Normal Bowel Sounds, Soft. No: Distention, Tenderness Genitourinary: Yes: WNL Extremities: Yes: WNL Edema: No Integumentary: Yes: Bruising (delgado incisional), Incision Wound/Incision: Yes: Dressing Dry and Intact Neurological: Yes: WNL, Alert, Oriented Psychiatric: Yes: WNL, Alert, Oriented Labs: CBC, BMP 09/12/17 06:10 09/12/17 06:10 INR, PTT INR 1.34 (0.83-1.09) 09/08/17 05:40 Problem List - Problems (1) Acute and chronic respiratory failure with hypoxia Assessment/Plan: Due to COPD and HFpEF, worsened with pleural effusion , improved after thoracocentsis, cont O2 inhalation. 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 Code(s): J90 - PLEURAL EFFUSION, NOT ELSEWHERE CLASSIFIED (3) Lung cancer Code(s): C34.90 - MALIGNANT NEOPLASM OF UNSP PART OF UNSP BRONCHUS OR LUNG Qualifiers: Laterality: right Lung location: unspecified part of lung Qualified Code( s): C34.91 - Malignant neoplasm of unspecified part of right bronchus or lung (4) Atrial fibrillation Assessment/Plan: Rtae controlled on Ac at home with Eliquis cont same Code(s): I48.91 - UNSPECIFIED ATRIAL FIBRILLATION Qualifiers: Atrial fibrillation type: chronic Qualified Code(s): I48.2 - Chronic atrial fibrillation (5) COPD (chronic obstructive pulmonary disease) Assessment/Plan: Cont O2 inhalation and nebs treatment Code(s): J44.9 - CHRONIC OBSTRUCTIVE PULMONARY DISEASE, UNSPECIFIED (6) Diastolic CHF Assessment/Plan: Compensated Code(s): I50.30 - UNSPECIFIED DIASTOLIC (CONGESTIVE) HEART FAILURE Qualifiers: Heart failure chronicity: chronic Qualified Code(s): I50.32 - Chronic diastolic (congestive) heart failure (7) Hypertension Assessment/Plan: well controlled Code(s): I10 - ESSENTIAL (PRIMARY) HYPERTENSION (8) CAD (coronary artery disease) Assessment/Plan: Asymptomatic cont current management. Code(s): I25.10 - ATHSCL HEART DISEASE OF [place] CORONARY ARTERY W/O ANG PCTRS
--- NOTE | 2017-09-12 14:39 | PN ---
Progress Note (short form) - Note Progress Note: PULMONARY Some discomfort at pleur-x site. Breathing better. Vital Signs Period Temp Pulse Resp BP Sys/Wahl Pulse Ox Last 24 Hr 97.6 F-98.8 F 69-94 18-22 117-166/55-68 94-96 Gen: less tachypneic Heart: RRR Lung: decreased breath sounds right base Abd: soft, nontender Ext: no edema CBC, BMP 09/12/17 06:10 09/12/17 06:10 Active Medications Acetaminophen (Tylenol -) 650 mg PO Q4H PRN PRN Reason: FEVER Last Admin: 09/12/17 05:45 Dose: 650 mg Apixaban (Eliquis -) 2.5 mg PO BID [facility] Last Admin: 09/12/17 09:18 Dose: 2.5 mg Ascorbic Acid (Vitamin C -) 500 mg PO DAILY [facility] Last Admin: 09/12/17 09:18 Dose: 500 mg Cholecalciferol (Vitamin D3 -) 5,000 unit PO DAILY [facility] Last Admin: 09/12/17 09:19 Dose: 5,000 unit Cyanocobalamin (Vitamin B12 -) 1,000 mcg PO DAILY [facility] Last Admin: 09/12/17 09:19 Dose: 1,000 mcg Digoxin (Lanoxin -) 0.125 mg PO DAILY [facility] Last Admin: 09/12/17 09:17 Dose: 0.125 mg Diltiazem HCl (Cardizem Cd -) 180 mg PO DAILY [facility] Last Admin: 09/12/17 09:17 Dose: 180 mg Fentanyl (Sublimaze Injection -) 100 mcg IVPUSH Q6H PRN PRN Reason: PAIN LEVEL 6-10 Furosemide (Lasix -) 40 mg PO Q2D [facility] Last Admin: 09/12/17 09:17 Dose: 40 mg Magnesium Oxide (Mag-Ox -) 400 mg PO BID [facility] Last Admin: 09/12/17 09:18 Dose: 400 mg Metoprolol Succinate (Toprol Xl -) 25 mg PO DAILY [facility] Last Admin: 09/12/17 09:19 Dose: 25 mg Non-Formulary Medication (Fluticasone/Vilanterol [Breo Ellipta 100-25 Mcg Inh]) 1 each IH DAILY [facility] Oxycodone HCl (Roxicodone -) 5 mg PO Q4H PRN PRN Reason: PAIN LEVEL 6-10 Last Admin: 09/12/17 11:35 Dose: 5 mg Pyridoxine HCl (Vitamin B6 -) 50 mg PO DAILY [facility] Last Admin: 09/12/17 09:19 Dose: 50 mg Sertraline HCl (Zoloft -) 25 mg PO DAILY [facility] Last Admin: 09/12/17 09:19 Dose: 25 mg Sucralfate (Carafate Oral Suspension -) 1 gm PO DAILY [facility] Last Admin: 09/12/17 09:16 Dose: 1 gm Valsartan (Diovan -) 320 mg PO DAILY [facility] Last Admin: 09/12/17 09:17 Dose: 320 mg A/P Acute on Chronic Hypoxic Respiratory Failure 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
[2017-09-13] MEDS: oxyCODONE HCL 5 MG TABLET PO PRN ×4 (01:09→21:22)
[2017-09-13] MEDS: ACETAMINOPHEN 325 MG TABLET (FP) PO PRN ×3 (01:10→21:30)
[2017-09-13 07:14] LABS: ANION GAP 1 (8-16); BLOOD UREA NITROGEN 21 mg/dL (7-18); CALCIUM 8.8 mg/dL (8.5-10.1); CHLORIDE 100 mmol/L (98-107); CO2 41 mmol/L (21-32); CREATININE 0.8 mg/dL (0.55-1.02); GLUCOSE,RANDOM 88 mg/dL (74-106); SODIUM 142 mmol/L (136-145)
[2017-09-13 07:19] LABS: BASO % 0.7 % (0-2.0); EOS % 4.6 % (0-4.5); HEMATOCRIT 37.3 % (32.4-45.2); HEMOGLOBIN 12.3 GM/dL (10.7-15.3); LYMPH % 12.1 % (8-40); MCHC 33.1 g/dl (32.0-36.0); MEAN CELL VOLUME 90.8 fl (80-96); MEAN PLT VOLUME 9.4 fl (7.5-11.1); MONO % 12.8 % (3.8-10.2); NEUT % 69.8 % (42.8-82.8); PLATELET COUNT 203 K/MM3 (134-434); RBC 4.11 M/mm3 (3.60-5.2); RDW 16.6 % (11.6-15.6); WHITE BLOOD COUNT 8.9 K/mm3 (4.0-10.0)
[2017-09-13] MEDS: SUCRALFATE 1 GM/10 ML UNIT DOSE CUPS PO SCH (09:24)
[2017-09-13] MEDS: ASCORBIC ACID 500 MG TABLET (FP) PO SCH (09:25)
[2017-09-13] MEDS: MAGNESIUM OXIDE 400 MG TABLET (FP) PO SCH ×2 (09:25→21:22)
[2017-09-13] MEDS: SERTRALINE HCL 25 MG TABLET (FP) PO SCH (09:25)
[2017-09-13] MEDS: DIGOXIN 0.125 MG TABLET (FP) PO SCH (09:25)
[2017-09-13] MEDS: CHOLECALCIFEROL (VITAMIN D3) 1,000 UNIT TABLET (FP) PO SCH (09:25)
[2017-09-13] MEDS: APIXABAN 2.5 MG TABLET PO SCH ×2 (09:25→21:22)
[2017-09-13] MEDS: PYRIDOXINE HCL (B-6) 50 MG TABLET (FP) PO SCH (09:26)
[2017-09-13] MEDS: CYANOCOBALAMIN 1,000 MCG TABLET (FP) PO SCH (09:26)
[2017-09-13] MEDS: VALSARTAN 160 MG TABLET (UD) PO SCH ×2 (09:27→12:00)
[2017-09-13] MEDS: metoPROLOL SUCCINATE 25 MG TAB.SR.24H (FP) PO SCH ×2 (09:29→11:59)
--- NOTE | 2017-09-13 10:13 | PN ---
Progress Note, Physician History of Present Illness: No complaints today Tele: V-paced at 66/min - Current Medication List Current Medications: Active Medications Acetaminophen (Tylenol -) 650 mg PO Q4H PRN PRN Reason: FEVER Last Admin: 09/13/17 06:25 Dose: 650 mg Apixaban (Eliquis -) 2.5 mg PO BID [facility] Last Admin: 09/13/17 09:25 Dose: 2.5 mg Ascorbic Acid (Vitamin C -) 500 mg PO DAILY [facility] Last Admin: 09/13/17 09:25 Dose: 500 mg Cholecalciferol (Vitamin D3 -) 5,000 unit PO DAILY [facility] Last Admin: 09/13/17 09:25 Dose: 5,000 unit Cyanocobalamin (Vitamin B12 -) 1,000 mcg PO DAILY [facility] Last Admin: 09/13/17 09:26 Dose: 1,000 mcg Digoxin (Lanoxin -) 0.125 mg PO DAILY [facility] Last Admin: 09/13/17 09:25 Dose: 0.125 mg Diltiazem HCl (Cardizem Cd -) 180 mg PO DAILY [facility] Last Admin: 09/13/17 09:25 Dose: 180 mg Fentanyl (Sublimaze Injection -) 100 mcg IVPUSH Q6H PRN PRN Reason: PAIN LEVEL 6-10 Furosemide (Lasix -) 40 mg PO Q2D [facility] Last Admin: 09/12/17 09:17 Dose: 40 mg Magnesium Oxide (Mag-Ox -) 400 mg PO BID [facility] Last Admin: 09/13/17 09:25 Dose: 400 mg Metoprolol Succinate (Toprol Xl -) 25 mg PO DAILY [facility] Last Admin: 09/13/17 09:29 Dose: Not Given Oxycodone HCl (Roxicodone -) 5 mg PO Q4H PRN PRN Reason: PAIN LEVEL 6-10 Last Admin: 09/13/17 06:25 Dose: 5 mg Pyridoxine HCl (Vitamin B6 -) 50 mg PO DAILY [facility] Last Admin: 09/13/17 09:26 Dose: 50 mg Sertraline HCl (Zoloft -) 25 mg PO DAILY [facility] Last Admin: 09/13/17 09:25 Dose: 25 mg Sucralfate (Carafate Oral Suspension -) 1 gm PO DAILY [facility] Last Admin: 09/13/17 09:24 Dose: 1 gm Valsartan (Diovan -) 320 mg PO DAILY [facility] Last Admin: 09/13/17 09:27 Dose: Not Given - Objective Vital Signs: Vital Signs Temperature 98.2 F 09/13/17 06:00 Pulse Rate 68 09/13/17 09:25 Respiratory Rate 20 09/13/17 06:00 Blood Pressure 125/54 09/13/17 06:00 O2 Sat by Pulse Oximetry (%) 93 L 09/12/17 22:00 Constitutional: Yes: Well Nourished, No Distress, Calm Eyes: Yes: WNL HENT: Yes: WNL Neck: Yes: WNL Cardiovascular: Yes: Regular Rate and Rhythm Respiratory: Yes: CTA Bilaterally Gastrointestinal: Yes: WNL Musculoskeletal: Yes: WNL Extremities: Yes: WNL Edema: No Labs: CBC, BMP 09/13/17 06:05 09/13/17 06:05 INR, PTT INR 1.34 (0.83-1.09) 09/08/17 05:40 Assessment/Plan 81 f hx afib, htn, hld, tachy/maricruz syndrome s/p ppm, copd, pad s/p rle bypass, possible cad (equivocal MIBI), chronic sob/briones/palps likely related to anxiety, esophageal ca s/p laser treatment, neuroendocrine small cell carcinoma of lung p /w shortness of breath now s/p VATS and pleur-x catheter placement with hypotension Hypotension - at home was on diltiazem, metoprolol, ARB for HTN - off hydralazine, per Dr. Torres note had a history of hypotension on hydralazine -09/12: BP now elevated off Hydralazine. (166/68mmHg). May consider non- dihydropyridine CCB. -09/13: SBP stable 120-130s. Continue current antihypertensive regimen s/p PPM - last interrogated 07/2017 stable function Afib - dig, dilt, eliquis at home, continue CAD - hx equivocal stress - on arb, statin at home, continue h/o HFPEF - on lasix 40 every other day at home, continue PAD s/p bypass - continue ARB, statin
--- NOTE | 2017-09-13 12:32 | PN ---
Progress Note, Physician Chief Complaint: No new complaints feels improved - Current Medication List Current Medications: Active Medications Acetaminophen (Tylenol -) 650 mg PO Q4H PRN PRN Reason: FEVER Last Admin: 09/13/17 06:25 Dose: 650 mg Apixaban (Eliquis -) 2.5 mg PO BID [facility] Last Admin: 09/13/17 09:25 Dose: 2.5 mg Ascorbic Acid (Vitamin C -) 500 mg PO DAILY [facility] Last Admin: 09/13/17 09:25 Dose: 500 mg Cholecalciferol (Vitamin D3 -) 5,000 unit PO DAILY [facility] Last Admin: 09/13/17 09:25 Dose: 5,000 unit Cyanocobalamin (Vitamin B12 -) 1,000 mcg PO DAILY [facility] Last Admin: 09/13/17 09:26 Dose: 1,000 mcg Digoxin (Lanoxin -) 0.125 mg PO DAILY [facility] Last Admin: 09/13/17 09:25 Dose: 0.125 mg Diltiazem HCl (Cardizem Cd -) 180 mg PO DAILY [facility] Last Admin: 09/13/17 09:25 Dose: 180 mg Fentanyl (Sublimaze Injection -) 100 mcg IVPUSH Q6H PRN PRN Reason: PAIN LEVEL 6-10 Furosemide (Lasix -) 40 mg PO Q2D [facility] Last Admin: 09/12/17 09:17 Dose: 40 mg Magnesium Oxide (Mag-Ox -) 400 mg PO BID [facility] Last Admin: 09/13/17 09:25 Dose: 400 mg Metoprolol Succinate (Toprol Xl -) 25 mg PO DAILY [facility] Last Admin: 09/13/17 11:59 Dose: 25 mg Oxycodone HCl (Roxicodone -) 5 mg PO Q4H PRN PRN Reason: PAIN LEVEL 6-10 Last Admin: 09/13/17 06:25 Dose: 5 mg Pyridoxine HCl (Vitamin B6 -) 50 mg PO DAILY [facility] Last Admin: 09/13/17 09:26 Dose: 50 mg Sertraline HCl (Zoloft -) 25 mg PO DAILY [facility] Last Admin: 09/13/17 09:25 Dose: 25 mg Sucralfate (Carafate Oral Suspension -) 1 gm PO DAILY [facility] Last Admin: 09/13/17 09:24 Dose: 1 gm Valsartan (Diovan -) 320 mg PO DAILY [facility] Last Admin: 09/13/17 12:00 Dose: 320 mg - Objective Vital Signs: Vital Signs Temperature 98.4 F 09/13/17 10:00 Pulse Rate 68 09/13/17 10:00 Respiratory Rate 20 09/13/17 10:00 Blood Pressure 98/71 09/13/17 10:00 O2 Sat by Pulse Oximetry (%) 93 L 09/13/17 10:00 Constitutional: Yes: Well Nourished, No Distress, Calm, Thin Cardiovascular: Yes: Pulse Irregular Respiratory: Yes: Regular, Diminished, On Nasal O2, Other (chest tube in place) . No: Accessory Muscle Use Gastrointestinal: Yes: WNL, Normal Bowel Sounds, Soft. No: Distention, Tenderness Genitourinary: Yes: WNL Extremities: Yes: WNL Edema: No Integumentary: Yes: Bruising (delgado incisional), Incision Wound/Incision: Yes: Dressing Dry and Intact Neurological: Yes: WNL, Alert, Oriented Psychiatric: Yes: WNL, Alert, Oriented Labs: CBC, BMP 09/13/17 06:05 09/13/17 06:05 INR, PTT INR 1.34 (0.83-1.09) 09/08/17 05:40 Problem List - Problems (1) Acute and chronic respiratory failure with hypoxia Assessment/Plan: Due to COPD and HFpEF, worsened with pleural effusion , improved after thoracocentsis, cont O2 inhalation. 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 Code(s): J90 - PLEURAL EFFUSION, NOT ELSEWHERE CLASSIFIED (3) Lung cancer Code(s): C34.90 - MALIGNANT NEOPLASM OF UNSP PART OF UNSP BRONCHUS OR LUNG Qualifiers: Laterality: right Lung location: unspecified part of lung Qualified Code( s): C34.91 - Malignant neoplasm of unspecified part of right bronchus or lung (4) Atrial fibrillation Assessment/Plan: Rtae controlled on Ac at home with Eliquis cont same Code(s): I48.91 - UNSPECIFIED ATRIAL FIBRILLATION Qualifiers: Atrial fibrillation type: chronic Qualified Code(s): I48.2 - Chronic atrial fibrillation (5) COPD (chronic obstructive pulmonary disease) Assessment/Plan: Cont O2 inhalation and nebs treatment Code(s): J44.9 - CHRONIC OBSTRUCTIVE PULMONARY DISEASE, UNSPECIFIED
--- NOTE | 2017-09-13 13:03 | PN ---
Progress Note (short form) - Note Progress Note: PULMONARY Still some discomfort at pleur-x site. Breathing better. Leaning towards deferring chemotherapy. Vital Signs Period Temp Pulse Resp BP Sys/Wahl Pulse Ox Last 24 Hr 98.1 F-98.6 F 64-82 18-20 98-148/50-71 93-93 Gen: less tachypneic Heart: RRR Lung: decreased breath sounds right base Abd: soft, nontender Ext: no edema CBC, BMP 09/13/17 06:05 09/13/17 06:05 Active Medications Acetaminophen (Tylenol -) 650 mg PO Q4H PRN PRN Reason: FEVER Last Admin: 09/13/17 06:25 Dose: 650 mg Apixaban (Eliquis -) 2.5 mg PO BID [facility] Last Admin: 09/13/17 09:25 Dose: 2.5 mg Ascorbic Acid (Vitamin C -) 500 mg PO DAILY [facility] Last Admin: 09/13/17 09:25 Dose: 500 mg Cholecalciferol (Vitamin D3 -) 5,000 unit PO DAILY [facility] Last Admin: 09/13/17 09:25 Dose: 5,000 unit Cyanocobalamin (Vitamin B12 -) 1,000 mcg PO DAILY [facility] Last Admin: 09/13/17 09:26 Dose: 1,000 mcg Digoxin (Lanoxin -) 0.125 mg PO DAILY [facility] Last Admin: 09/13/17 09:25 Dose: 0.125 mg Diltiazem HCl (Cardizem Cd -) 180 mg PO DAILY [facility] Last Admin: 09/13/17 09:25 Dose: 180 mg Fentanyl (Sublimaze Injection -) 100 mcg IVPUSH Q6H PRN PRN Reason: PAIN LEVEL 6-10 Furosemide (Lasix -) 40 mg PO Q2D [facility] Last Admin: 09/12/17 09:17 Dose: 40 mg Magnesium Oxide (Mag-Ox -) 400 mg PO BID [facility] Last Admin: 09/13/17 09:25 Dose: 400 mg Metoprolol Succinate (Toprol Xl -) 25 mg PO DAILY [facility] Last Admin: 09/13/17 11:59 Dose: 25 mg Oxycodone HCl (Roxicodone -) 5 mg PO Q4H PRN PRN Reason: PAIN LEVEL 6-10 Last Admin: 09/13/17 06:25 Dose: 5 mg Pyridoxine HCl (Vitamin B6 -) 50 mg PO DAILY [facility] Last Admin: 09/13/17 09:26 Dose: 50 mg Sertraline HCl (Zoloft -) 25 mg PO DAILY [facility] Last Admin: 09/13/17 09:25 Dose: 25 mg Sucralfate (Carafate Oral Suspension -) 1 gm PO DAILY [facility] Last Admin: 09/13/17 09:24 Dose: 1 gm Valsartan (Diovan -) 320 mg PO DAILY [facility] Last Admin: 09/13/17 12:00 Dose: 320 mg A/P Acute on Chronic Hypoxic Respiratory Failure 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
[2017-09-13 13:50] VITALS: BMI 20.8
[2017-09-14] MEDS: ACETAMINOPHEN 325 MG TABLET (FP) PO PRN ×2 (06:17→18:30)
[2017-09-14] MEDS: oxyCODONE HCL 5 MG TABLET PO PRN ×2 (06:17→10:40)
[2017-09-14 08:23] LABS: BASO % 0.6 % (0-2.0); HEMATOCRIT 37.2 % (32.4-45.2); HEMOGLOBIN 12.3 GM/dL (10.7-15.3); LYMPH % 9.6 % (8-40); MCH 30.1 pg (25.7-33.7); MCHC 33.2 g/dl (32.0-36.0); MEAN CELL VOLUME 90.8 fl (80-96); MEAN PLT VOLUME 9.4 fl (7.5-11.1); MONO % 10.8 % (3.8-10.2); PLATELET COUNT 214 K/MM3 (134-434); RDW 16.3 % (11.6-15.6); WHITE BLOOD COUNT 10.6 K/mm3 (4.0-10.0)
[2017-09-14 09:03] LABS: ANION GAP 3 (8-16); BLOOD UREA NITROGEN 20 mg/dL (7-18); CHLORIDE 97 mmol/L (98-107); CO2 40 mmol/L (21-32); CREATININE 0.7 mg/dL (0.55-1.02); GLUCOSE,RANDOM 85 mg/dL (74-106); POTASSIUM 4.7 mmol/L (3.5-5.1); SODIUM 140 mmol/L (136-145)
[2017-09-14] MEDS: SUCRALFATE 1 GM/10 ML UNIT DOSE CUPS PO SCH (10:22)
[2017-09-14] MEDS: DIGOXIN 0.125 MG TABLET (FP) PO SCH (10:22)
[2017-09-14] MEDS: SERTRALINE HCL 25 MG TABLET (FP) PO SCH (10:22)
[2017-09-14] MEDS: CYANOCOBALAMIN 1,000 MCG TABLET (FP) PO SCH (10:23)
[2017-09-14] MEDS: APIXABAN 2.5 MG TABLET PO SCH ×2 (10:23→21:25)
[2017-09-14] MEDS: VALSARTAN 160 MG TABLET (UD) PO SCH (10:23)
[2017-09-14] MEDS: ASCORBIC ACID 500 MG TABLET (FP) PO SCH (10:23)
[2017-09-14] MEDS: PYRIDOXINE HCL (B-6) 50 MG TABLET (FP) PO SCH (10:24)
[2017-09-14] MEDS: FUROSEMIDE 40 MG TABLET (FP) PO SCH (10:25)
[2017-09-14] MEDS: CHOLECALCIFEROL (VITAMIN D3) 1,000 UNIT TABLET (FP) PO SCH (10:25)
--- NOTE | 2017-09-14 10:33 | PN ---
Progress Note, Physician Chief Complaint: pt sitting in chair in no acute distress. reports breathing better. Otherwise , denies any chest pain, worsening sob, n/v/d - Current Medication List Current Medications: Active Medications Acetaminophen (Tylenol -) 650 mg PO Q4H PRN PRN Reason: FEVER Last Admin: 09/14/17 06:17 Dose: 650 mg Apixaban (Eliquis -) 2.5 mg PO BID [facility] Last Admin: 09/13/17 21:22 Dose: 2.5 mg Ascorbic Acid (Vitamin C -) 500 mg PO DAILY [facility] Last Admin: 09/13/17 09:25 Dose: 500 mg Cholecalciferol (Vitamin D3 -) 5,000 unit PO DAILY [facility] Last Admin: 09/13/17 09:25 Dose: 5,000 unit Cyanocobalamin (Vitamin B12 -) 1,000 mcg PO DAILY [facility] Last Admin: 09/13/17 09:26 Dose: 1,000 mcg Digoxin (Lanoxin -) 0.125 mg PO DAILY [facility] Last Admin: 09/13/17 09:25 Dose: 0.125 mg Diltiazem HCl (Cardizem Cd -) 180 mg PO DAILY [facility] Last Admin: 09/13/17 09:25 Dose: 180 mg Fentanyl (Sublimaze Injection -) 100 mcg IVPUSH Q6H PRN PRN Reason: PAIN LEVEL 6-10 Furosemide (Lasix -) 40 mg PO Q2D [facility] Last Admin: 09/12/17 09:17 Dose: 40 mg Magnesium Oxide (Mag-Ox -) 400 mg PO BID [facility] Last Admin: 09/13/17 21:22 Dose: 400 mg Metoprolol Succinate (Toprol Xl -) 25 mg PO DAILY [facility] Last Admin: 09/13/17 11:59 Dose: 25 mg Oxycodone HCl (Roxicodone -) 5 mg PO Q4H PRN PRN Reason: PAIN LEVEL 6-10 Last Admin: 09/14/17 06:17 Dose: 5 mg Pyridoxine HCl (Vitamin B6 -) 50 mg PO DAILY [facility] Last Admin: 09/13/17 09:26 Dose: 50 mg Sertraline HCl (Zoloft -) 25 mg PO DAILY [facility] Last Admin: 09/13/17 09:25 Dose: 25 mg Sucralfate (Carafate Oral Suspension -) 1 gm PO DAILY [facility] Last Admin: 09/13/17 09:24 Dose: 1 gm Valsartan (Diovan -) 320 mg PO DAILY [facility] Last Admin: 09/13/17 12:00 Dose: 320 mg - Objective Vital Signs: Vital Signs Temperature 98.0 F 09/14/17 06:00 Pulse Rate 63 09/14/17 06:00 Respiratory Rate 20 09/14/17 06:00 Blood Pressure 135/54 09/14/17 06:00 O2 Sat by Pulse Oximetry (%) 92 L 09/13/17 22:00 Constitutional: Yes: No Distress, Calm, Thin Cardiovascular: Yes: Pulse Irregular. No: Gallop, Murmur Respiratory: Yes: Regular, Diminished (right), On Nasal O2. No: Accessory Muscle Use, Tachypnea, Wheezes Gastrointestinal: Yes: WNL, Normal Bowel Sounds, Soft. No: Distention, Tenderness Genitourinary: Yes: WNL Extremities: Yes: WNL Edema: No Integumentary: Yes: Other (right chest tube) Wound/Incision: Yes: Dressing Dry and Intact, Draining Neurological: Yes: WNL, Alert, Oriented Psychiatric: Yes: WNL, Alert, Oriented Labs: CBC, BMP 09/14/17 06:25 09/14/17 06:25 INR, PTT INR 1.34 (0.83-1.09) 09/08/17 05:40 Assessment/Plan (1) Acute and chronic respiratory failure with hypoxia Assessment/Plan: s/p pleurx catheter, monitor outpt improving O2 via NC prn adequate pain control pulm following Code(s): J96.21 - ACUTE AND CHRONIC RESPIRATORY FAILURE WITH HYPOXIA (2) Pleural effusion Assessment/Plan: exudate, suspect malignant cytology pending Code(s): J90 - PLEURAL EFFUSION, NOT ELSEWHERE CLASSIFIED (3) COPD exacerbation Assessment/Plan: stable Code(s): J44.1 - CHRONIC OBSTRUCTIVE PULMONARY DISEASE W (ACUTE) EXACERBATION (4) Lung cancer Assessment/Plan: 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 if pt prefers, oncology following palliative consult pending Code(s): C34.90 - MALIGNANT NEOPLASM OF UNSP PART OF UNSP BRONCHUS OR LUNG Qualifiers: Laterality: right Lung location: unspecified part of lung Qualified Code( s): C34.91 - Malignant neoplasm of unspecified part of right bronchus or lung (5) Atrial fibrillation Assessment/Plan: controlled continue eliquis, metoprolol Code(s): I48.91 - UNSPECIFIED ATRIAL FIBRILLATION Qualifiers: Atrial fibrillation type: chronic Qualified Code(s): I48.2 - Chronic atrial fibrillation (6) CHF (congestive heart failure) Assessment/Plan: stable hold lasix for now, continue 20qod upon d/c per cardiology cardiology following Code(s): I50.9 - HEART FAILURE, UNSPECIFIED Qualifiers: Qualified Code(s): I50.9 - Heart failure, unspecified (7) Hyperlipidemia Assessment/Plan: statin stopped b/c of poor prognosis Code(s): E78.5 - HYPERLIPIDEMIA, UNSPECIFIED (8) Hypertension Assessment/Plan: controlled continue arb/bb/ccb cardiology following Code(s): I10 - ESSENTIAL (PRIMARY) HYPERTENSION (9) Pacemaker Code(s): Z95.0 - PRESENCE OF CARDIAC PACEMAKER
[2017-09-14] MEDS: metoPROLOL SUCCINATE 25 MG TAB.SR.24H (FP) PO SCH (10:39)
[2017-09-14] MEDS: MAGNESIUM OXIDE 400 MG TABLET (FP) PO SCH ×2 (10:39→21:25)
--- NOTE | 2017-09-14 11:10 | PN ---
Progress Note (short form) - Note Progress Note: Overall feeling better. Less discomfort at Pleur-x site. 220 cc out. Intake & Output 09/11/17 09/12/17 09/13/17 09/14/17 23:59 23:59 23:59 23:59 Intake Total 260 120 120 120 Output Total 280 350 198 220 Balance -20 -230 -78 -100 Last Vital Signs Temp Pulse Resp BP Pulse Ox 98.0 F 77 20 135/54 92 L 09/14/17 06:00 09/14/17 10:22 09/14/17 06:00 09/14/17 06:00 09/13/17 22:00 Active Medications Acetaminophen (Tylenol -) 650 mg PO Q4H PRN PRN Reason: FEVER Last Admin: 09/14/17 06:17 Dose: 650 mg Apixaban (Eliquis -) 2.5 mg PO BID [facility] Last Admin: 09/14/17 10:23 Dose: 2.5 mg Ascorbic Acid (Vitamin C -) 500 mg PO DAILY [facility] Last Admin: 09/14/17 10:23 Dose: 500 mg Cholecalciferol (Vitamin D3 -) 5,000 unit PO DAILY [facility] Last Admin: 09/14/17 10:25 Dose: Not Given Cyanocobalamin (Vitamin B12 -) 1,000 mcg PO DAILY [facility] Last Admin: 09/14/17 10:23 Dose: 1,000 mcg Digoxin (Lanoxin -) 0.125 mg PO DAILY [facility] Last Admin: 09/14/17 10:22 Dose: 0.125 mg Diltiazem HCl (Cardizem Cd -) 180 mg PO DAILY [facility] Last Admin: 09/14/17 10:25 Dose: 180 mg Fentanyl (Sublimaze Injection -) 100 mcg IVPUSH Q6H PRN PRN Reason: PAIN LEVEL 6-10 Furosemide (Lasix -) 40 mg PO Q2D [facility] Last Admin: 09/14/17 10:25 Dose: Not Given Magnesium Oxide (Mag-Ox -) 400 mg PO BID [facility] Last Admin: 09/14/17 10:39 Dose: 400 mg Metoprolol Succinate (Toprol Xl -) 25 mg PO DAILY [facility] Last Admin: 09/14/17 10:39 Dose: 25 mg Oxycodone HCl (Roxicodone -) 5 mg PO Q4H PRN PRN Reason: PAIN LEVEL 6-10 Last Admin: 09/14/17 10:40 Dose: 5 mg Pyridoxine HCl (Vitamin B6 -) 50 mg PO DAILY [facility] Last Admin: 09/14/17 10:24 Dose: 50 mg Sertraline HCl (Zoloft -) 25 mg PO DAILY [facility] Last Admin: 09/14/17 10:22 Dose: 25 mg Sucralfate (Carafate Oral Suspension -) 1 gm PO DAILY [facility] Last Admin: 09/14/17 10:22 Dose: 1 gm Valsartan (Diovan -) 320 mg PO DAILY [facility] Last Admin: 09/14/17 10:23 Dose: 320 mg Gen: less tachypneic Heart: RRR Lung: decreased breath sounds right base Abd: soft, nontender Ext: no edema Laboratory Results - last 24 hr 09/14/17 09/14/17 06:25 06:25 WBC 10.6 H RBC 4.10 Hgb 12.3 Hct 37.2 MCV 90.8 MCH 30.1 MCHC 33.2 RDW 16.3 H Plt Count 214 MPV 9.4 Absolute Neuts (auto) 8.0 Neutrophils % 76.0 Lymphocytes % 9.6 D Monocytes % 10.8 H Eosinophils % 3.0 Basophils % 0.6 Nucleated RBC % 0 Sodium 140 Potassium 4.7 Chloride 97 L Carbon Dioxide 40 H Anion Gap 3 L BUN 20 H Creatinine 0.7 Creat Clearance w eGFR > 60 Random Glucose 85 Calcium 9.0 A/P Acute on Chronic Hypoxic Respiratory Failure 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 - O2 to keep SpO2 >90% - inhaled bronchodilators - rate controlled - AC - completed empiric antibiotics - f/u final pleural fluid studies: cytology pending - continue discussions regarding goals of care Dr Palomino
--- NOTE | 2017-09-14 11:53 | PN ---
Progress Note, Physician Chief Complaint: lung Ca History of Present Illness: no sob other than if having severe back pain. no cp, palpitations, leg swelling - Current Medication List Current Medications: Active Medications Acetaminophen (Tylenol -) 650 mg PO Q4H PRN PRN Reason: FEVER Last Admin: 09/14/17 06:17 Dose: 650 mg Apixaban (Eliquis -) 2.5 mg PO BID [facility] Last Admin: 09/14/17 10:23 Dose: 2.5 mg Ascorbic Acid (Vitamin C -) 500 mg PO DAILY [facility] Last Admin: 09/14/17 10:23 Dose: 500 mg Cholecalciferol (Vitamin D3 -) 5,000 unit PO DAILY [facility] Last Admin: 09/14/17 10:25 Dose: Not Given Cyanocobalamin (Vitamin B12 -) 1,000 mcg PO DAILY [facility] Last Admin: 09/14/17 10:23 Dose: 1,000 mcg Digoxin (Lanoxin -) 0.125 mg PO DAILY [facility] Last Admin: 09/14/17 10:22 Dose: 0.125 mg Diltiazem HCl (Cardizem Cd -) 180 mg PO DAILY [facility] Last Admin: 09/14/17 10:25 Dose: 180 mg Fentanyl (Sublimaze Injection -) 100 mcg IVPUSH Q6H PRN PRN Reason: PAIN LEVEL 6-10 Furosemide (Lasix -) 40 mg PO Q2D [facility] Last Admin: 09/14/17 10:25 Dose: Not Given Magnesium Oxide (Mag-Ox -) 400 mg PO BID [facility] Last Admin: 09/14/17 10:39 Dose: 400 mg Metoprolol Succinate (Toprol Xl -) 25 mg PO DAILY [facility] Last Admin: 09/14/17 10:39 Dose: 25 mg Oxycodone HCl (Roxicodone -) 5 mg PO Q4H PRN PRN Reason: PAIN LEVEL 6-10 Last Admin: 09/14/17 10:40 Dose: 5 mg Pyridoxine HCl (Vitamin B6 -) 50 mg PO DAILY [facility] Last Admin: 09/14/17 10:24 Dose: 50 mg Sertraline HCl (Zoloft -) 25 mg PO DAILY [facility] Last Admin: 09/14/17 10:22 Dose: 25 mg Sucralfate (Carafate Oral Suspension -) 1 gm PO DAILY [facility] Last Admin: 08/06/18 10:22 Dose: 1 gm Valsartan (Diovan -) 320 mg PO DAILY [facility] Last Admin: 09/14/17 10:23 Dose: 320 mg - Objective Vital Signs: Vital Signs Temperature 98.2 F 09/14/17 10:00 Pulse Rate 77 09/14/17 10:22 Respiratory Rate 20 09/14/17 10:00 Blood Pressure 136/74 09/14/17 10:00 O2 Sat by Pulse Oximetry (%) 92 L 09/13/17 22:00 Constitutional: Yes: Well Nourished, No Distress, Calm Cardiovascular: Yes: Regular Rate and Rhythm, S1, S2. No: JVD, Gallop, Murmur Respiratory: Yes: Regular, CTA Bilaterally (absent bases). No: Accessory Muscle Use, Rales, Wheezes Extremities: No: Cold Edema: No Neurological: Yes: Alert, Oriented Psychiatric: No: Agitated Labs: CBC, BMP 09/14/17 06:25 09/14/17 06:25 INR, PTT INR 1.34 (0.83-1.09) 09/08/17 05:40 Assessment/Plan MIBI 05/21 (dobut): no STs, minimal apical isch vs variable brst (small LV/hyper EF) Echo 05/2016 (): tds; nl lv, nl rv size, mild , mild mr, mild-mod tr; rvsp 40-50, mod ao root dil EKG 09/08/17 V paced Tele: V paced, afib 81 f hx afib, htn, hld, tachy/maricruz syndrome s/p ppm, copd, pad s/p rle bypass, possible cad (equivocal MIBI), chronic sob/briones/palps likely related to anxiety, esophageal ca s/p laser treatment, neuroendocrine small cell carcinoma of lung p /w shortness of breath now s/p VATS and pleur-x catheter placement with hypotension Hypotension - bp stabilized - cont same meds s/p PPM - last interrogated 07/2017 stable function Afib - dig, dilt, eliquis at home, continue CAD - hx equivocal stress - on arb, statin at home, continue h/o HFPEF - on lasix 40 every other day at home - appears euvolemic here. - asking for lasix break due to urinary incontinence. doubt lasix contributing much to draining of malignant effusion (chest tube in). will hold for now. -would resume lasix at 20 qod on hosp discharge. PAD s/p bypass - continue ARB, statin lung cancer/malign effusion s/p VATS - per pulm, onc, thoracic surgery
--- NOTE | 2017-09-14 16:44 | PN ---
Progress Note (short form) - Note Progress Note: Patient seen and examined Quite dyspneic Chest tube drainage > 200 cc Last Vital Signs Temp Pulse Resp BP Pulse Ox 98.2 F 77 20 136/74 92 L 09/14/17 10:00 09/14/17 10:22 09/14/17 10:00 09/14/17 10:00 09/14/17 09:00 No thrush Lungs- diminished breath sounds bilaterally Cor- paced Abdomen- soft Ext- no significant edema CBC, BMP 09/14/17 06:25 09/14/17 06:25 Current Medications Generic Name Dose Route Start Last Admin Trade Name Freq PRN Reason Stop Dose Admin Acetaminophen 650 mg 09/10/17 15:17 09/14/17 06:17 Tylenol - PO 650 mg Q4H PRN Administration FEVER Apixaban 2.5 mg 09/10/17 22:00 09/14/17 10:23 Eliquis - PO 2.5 mg BID [facility] Administration Ascorbic Acid 500 mg 09/12/17 10:00 09/14/17 10:23 Vitamin C - PO 500 mg DAILY [facility] Administration Cholecalciferol 5,000 unit 09/12/17 10:00 09/14/17 10:25 Vitamin D3 - PO Not Given DAILY [facility] Cyanocobalamin 1,000 mcg 09/12/17 10:00 09/14/17 10:23 Vitamin B12 - PO 1,000 mcg DAILY [facility] Administration Digoxin 0.125 mg 09/12/17 10:00 09/14/17 10:22 Lanoxin - PO 0.125 mg DAILY [facility] Administration Diltiazem HCl 180 mg 09/12/17 10:00 09/14/17 10:25 Cardizem Cd - PO 180 mg DAILY [facility] Administration Fentanyl 100 mcg 09/10/17 14:29 Sublimaze Injection - IVPUSH Q6H PRN PAIN LEVEL 6-10 Magnesium Oxide 400 mg 09/11/17 22:00 09/14/17 10:39 Mag-Ox - PO 400 mg BID [facility] Administration Metoprolol Succinate 25 mg 09/12/17 10:00 09/14/17 10:39 Toprol Xl - PO 25 mg DAILY [facility] Administration Pyridoxine HCl 50 mg 09/12/17 10:00 09/14/17 10:24 Vitamin B6 - PO 50 mg DAILY [facility] Administration Sertraline HCl 25 mg 09/12/17 10:00 09/14/17 10:22 Zoloft - PO 25 mg DAILY [facility] Administration Sucralfate 1 gm 09/12/17 10:00 09/14/17 10:22 Carafate Oral Suspension - PO 1 gm DAILY [facility] Administration Valsartan 320 mg 09/12/17 10:00 09/14/17 10:23 Diovan - PO 320 mg DAILY [facility] Administration Impression: Small cell lung ca Right pleural effusion S/P VATS with pleur-ex catheter Acute hypoxic respiratory failure PAF A/C Seems to be deciding against any further therapy
[2017-09-15 06:45] LABS: BASO % 0.6 % (0-2.0); EOS % 2.3 % (0-4.5); HEMATOCRIT 39.1 % (32.4-45.2); HEMOGLOBIN 12.8 GM/dL (10.7-15.3); LYMPH % 9.9 % (8-40); MCH 29.9 pg (25.7-33.7); MCHC 32.9 g/dl (32.0-36.0); MEAN CELL VOLUME 91.1 fl (80-96); MEAN PLT VOLUME 9.2 fl (7.5-11.1); MONO % 9.7 % (3.8-10.2); NEUT % 77.5 % (42.8-82.8); PLATELET COUNT 244 K/MM3 (134-434); RBC 4.29 M/mm3 (3.60-5.2); RDW 16.7 % (11.6-15.6); WHITE BLOOD COUNT 10.8 K/mm3 (4.0-10.0)
[2017-09-15 07:04] LABS: ANION GAP 1 (8-16); BLOOD UREA NITROGEN 18 mg/dL (7-18); CALCIUM 8.7 mg/dL (8.5-10.1); CHLORIDE 98 mmol/L (98-107); CO2 42 mmol/L (21-32); CREATININE 0.7 mg/dL (0.55-1.02); GLUCOSE,RANDOM 98 mg/dL (74-106); MAGNESIUM 2.1 mg/dL (1.8-2.4); POTASSIUM 4.9 mmol/L (3.5-5.1); SODIUM 141 mmol/L (136-145)
[2017-09-15] MEDS ORDERED: PT OWN MED DRAWER 7, Y5N ONE (08:26)
[2017-09-15] MEDS: oxyCODONE HCL 5 MG TABLET PO PRN ×3 (08:31→22:14)
--- NOTE | 2017-09-15 09:32 | PN ---
Progress Note (short form) - Note Progress Note: s: occasional SOB associated with back pain, no cp, palps, edema, dizzy tele: v paced, afib Current Medications Acetaminophen (Tylenol -) 650 mg PO Q4H PRN PRN Reason: FEVER Last Admin: 09/14/17 18:30 Dose: 650 mg Apixaban (Eliquis -) 2.5 mg PO BID [facility] Last Admin: 09/14/17 21:25 Dose: 2.5 mg Ascorbic Acid (Vitamin C -) 500 mg PO DAILY [facility] Last Admin: 09/14/17 10:23 Dose: 500 mg Cholecalciferol (Vitamin D3 -) 5,000 unit PO DAILY [facility] Last Admin: 09/14/17 10:25 Dose: Not Given Cyanocobalamin (Vitamin B12 -) 1,000 mcg PO DAILY [facility] Last Admin: 09/14/17 10:23 Dose: 1,000 mcg Digoxin (Lanoxin -) 0.125 mg PO DAILY [facility] Last Admin: 09/14/17 10:22 Dose: 0.125 mg Diltiazem HCl (Cardizem Cd -) 180 mg PO DAILY [facility] Last Admin: 09/14/17 10:25 Dose: 180 mg Fentanyl (Sublimaze Injection -) 100 mcg IVPUSH Q6H PRN PRN Reason: PAIN LEVEL 6-10 Magnesium Oxide (Mag-Ox -) 400 mg PO BID [facility] Last Admin: 09/14/17 21:25 Dose: 400 mg Metoprolol Succinate (Toprol Xl -) 25 mg PO DAILY [facility] Last Admin: 09/14/17 10:39 Dose: 25 mg Oxycodone HCl (Roxicodone -) 5 mg PO Q4H PRN PRN Reason: PAIN LEVEL 7 - 10 Last Admin: 09/15/17 08:31 Dose: 5 mg Pyridoxine HCl (Vitamin B6 -) 50 mg PO DAILY [facility] Last Admin: 09/14/17 10:24 Dose: 50 mg Sertraline HCl (Zoloft -) 25 mg PO DAILY [facility] Last Admin: 09/14/17 10:22 Dose: 25 mg Sucralfate (Carafate Oral Suspension -) 1 gm PO DAILY [facility] Last Admin: 09/14/17 10:22 Dose: 1 gm Valsartan (Diovan -) 320 mg PO DAILY [facility] Last Admin: 08/06/18 10:23 Dose: 320 mg - Objective Vital Signs: Vital Signs Period Temp Pulse Resp BP Sys/Wahl Pulse Ox Last 24 Hr 97.3 F-99.7 F 65-77 20-20 132-150/50-74 94 Constitutional: Yes: Well Nourished, No Distress, Calm Cardiovascular: Yes: Regular Rate and Rhythm, S1, S2. No: JVD, Gallop, Murmur Respiratory: Yes: Regular, CTA Bilaterally (absent bases). No: Accessory Muscle Use, Rales, Wheezes Extremities: No: Cold Edema: No Neurological: Yes: Alert, Oriented Psychiatric: No: Agitated Assessment/Plan MIBI 05/21 ([facility]): no STs, minimal apical isch vs variable brst (small LV/hyper EF) Echo 05/2016 ([facility]): tds; nl lv, nl rv size, mild , mild mr, mild-mod tr; rvsp 40-50, mod ao root dil EKG 09/08/17 V paced 81 f hx afib, htn, hld, tachy/maricruz syndrome s/p ppm, copd, pad s/p rle bypass, possible cad (equivocal MIBI), chronic sob/briones/palps likely related to anxiety, esophageal ca s/p laser treatment, neuroendocrine small cell carcinoma of lung p /w shortness of breath now s/p VATS and pleur-x catheter placement with hypotension Hypotension - resolved, BP stable off of hydralazine - continue dilt, metoprolol s/p PPM - last interrogated 07/2017 stable function Afib - dig, dilt, eliquis at home, continue CAD - hx equivocal stress - on arb, statin at home, continue h/o HFPEF - euvolemic, urinary incontinence, holding lasix for now - resume lasix at 20 qod on hosp discharge. PAD s/p bypass - continue ARB, statin lung cancer/malign effusion s/p VATS - per pulm, onc, thoracic surgery
[2017-09-15] MEDS: MAGNESIUM OXIDE 400 MG TABLET (FP) PO SCH ×2 (09:39→22:15)
[2017-09-15] MEDS: VALSARTAN 160 MG TABLET (UD) PO SCH (09:39)
[2017-09-15] MEDS: SERTRALINE HCL 25 MG TABLET (FP) PO SCH (09:39)
[2017-09-15] MEDS: APIXABAN 2.5 MG TABLET PO SCH ×2 (09:39→22:14)
[2017-09-15] MEDS: CYANOCOBALAMIN 1,000 MCG TABLET (FP) PO SCH (09:39)
[2017-09-15] MEDS: CHOLECALCIFEROL (VITAMIN D3) 1,000 UNIT TABLET (FP) PO SCH (09:39)
[2017-09-15] MEDS: SUCRALFATE 1 GM/10 ML UNIT DOSE CUPS PO SCH (09:39)
[2017-09-15] MEDS: DIGOXIN 0.125 MG TABLET (FP) PO SCH (09:39)
[2017-09-15] MEDS: ASCORBIC ACID 500 MG TABLET (FP) PO SCH (09:40)
[2017-09-15] MEDS: metoPROLOL SUCCINATE 25 MG TAB.SR.24H (FP) PO SCH (09:40)
[2017-09-15] MEDS: ACETAMINOPHEN 325 MG TABLET (FP) PO PRN ×3 (09:41→22:15)
[2017-09-15] MEDS: PYRIDOXINE HCL (B-6) 50 MG TABLET (FP) PO SCH (10:00)
--- NOTE | 2017-09-15 10:07 | PN ---
Progress Note, Physician Chief Complaint: pt sitting in bed in no acute distress. denies any difficulty breathing when asked. on O2 via NC. Otherwise , denies any chest pain, worsening sob, n/v/d - Current Medication List Current Medications: Active Medications Acetaminophen (Tylenol -) 650 mg PO Q4H PRN PRN Reason: FEVER Last Admin: 09/15/17 09:41 Dose: 650 mg Apixaban (Eliquis -) 2.5 mg PO BID [facility] Last Admin: 09/15/17 09:39 Dose: 2.5 mg Ascorbic Acid (Vitamin C -) 500 mg PO DAILY [facility] Last Admin: 09/15/17 09:40 Dose: 500 mg Cholecalciferol (Vitamin D3 -) 5,000 unit PO DAILY [facility] Last Admin: 09/15/17 09:39 Dose: 5,000 unit Cyanocobalamin (Vitamin B12 -) 1,000 mcg PO DAILY [facility] Last Admin: 09/15/17 09:39 Dose: 1,000 mcg Digoxin (Lanoxin -) 0.125 mg PO DAILY [facility] Last Admin: 09/15/17 09:39 Dose: 0.125 mg Diltiazem HCl (Cardizem Cd -) 180 mg PO DAILY [facility] Last Admin: 09/15/17 09:39 Dose: 180 mg Fentanyl (Sublimaze Injection -) 100 mcg IVPUSH Q6H PRN PRN Reason: PAIN LEVEL 6-10 Magnesium Oxide (Mag-Ox -) 400 mg PO BID [facility] Last Admin: 09/15/17 09:39 Dose: 400 mg Metoprolol Succinate (Toprol Xl -) 25 mg PO DAILY [facility] Last Admin: 09/15/17 09:40 Dose: 25 mg Oxycodone HCl (Roxicodone -) 5 mg PO Q4H PRN PRN Reason: PAIN LEVEL 7 - 10 Last Admin: 09/15/17 08:31 Dose: 5 mg Pyridoxine HCl (Vitamin B6 -) 50 mg PO DAILY [facility] Last Admin: 09/14/17 10:24 Dose: 50 mg Sertraline HCl (Zoloft -) 25 mg PO DAILY [facility] Last Admin: 09/15/17 09:39 Dose: 25 mg Sucralfate (Carafate Oral Suspension -) 1 gm PO DAILY [facility] Last Admin: 09/15/17 09:39 Dose: 1 gm Valsartan (Diovan -) 320 mg PO DAILY [facility] Last Admin: 09/15/17 09:39 Dose: 320 mg - Objective Vital Signs: Vital Signs Temperature 97.3 F L 09/15/17 05:00 Pulse Rate 64 09/15/17 09:39 Respiratory Rate 20 09/15/17 05:00 Blood Pressure 143/62 09/15/17 05:00 O2 Sat by Pulse Oximetry (%) 94 L 09/14/17 21:00 Constitutional: Yes: No Distress, Calm, Thin Cardiovascular: Yes: Pulse Irregular Respiratory: Yes: Regular, Diminished (right), On Nasal O2, SOB on Exertion. No : Accessory Muscle Use, Tachypnea, Wheezes Gastrointestinal: Yes: WNL, Normal Bowel Sounds, Soft. No: Distention, Tenderness Genitourinary: Yes: WNL Extremities: Yes: WNL Edema: No Neurological: Yes: WNL, Alert, Oriented Psychiatric: Yes: WNL, Alert, Oriented Labs: CBC, BMP 09/15/17 06:00 09/15/17 06:00 INR, PTT INR 1.34 (0.83-1.09) 09/08/17 05:40 Problem List - Problems (1) Malignant pleural effusion Code(s): J91.0 - MALIGNANT PLEURAL EFFUSION (2) Small cell carcinoma Code(s): C80.1 - MALIGNANT (PRIMARY) NEOPLASM, UNSPECIFIED Assessment/Plan (1) Acute and chronic respiratory failure with hypoxia Assessment/Plan: s/p pleurx catheter, monitor outpt O2 via NC prn adequate pain control pulm following Code(s): J96.21 - ACUTE AND CHRONIC RESPIRATORY FAILURE WITH HYPOXIA (2) Pleural effusion Assessment/Plan: exudate, malignant cytology positive SSC Code(s): J90 - PLEURAL EFFUSION, NOT ELSEWHERE CLASSIFIED (3) COPD exacerbation Assessment/Plan: stable Code(s): J44.1 - CHRONIC OBSTRUCTIVE PULMONARY DISEASE W (ACUTE) EXACERBATION (4) Lung cancer Assessment/Plan: 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 if pt prefers, pt leaning towards trying chemo, oncology following palliative following Code(s): C34.90 - MALIGNANT NEOPLASM OF UNSP PART OF UNSP BRONCHUS OR LUNG Qualifiers: Laterality: right Lung location: unspecified part of lung Qualified Code( s): C34.91 - Malignant neoplasm of unspecified part of right bronchus or lung (5) Atrial fibrillation Assessment/Plan: controlled continue eliquis, metoprolol Code(s): I48.91 - UNSPECIFIED ATRIAL FIBRILLATION Qualifiers: Atrial fibrillation type: chronic Qualified Code(s): I48.2 - Chronic atrial fibrillation (6) CHF (congestive heart failure) Assessment/Plan: stable hold lasix for now, continue 20qod upon d/c per cardiology cardiology following Code(s): I50.9 - HEART FAILURE, UNSPECIFIED Qualifiers: Qualified Code(s): I50.9 - Heart failure, unspecified (7) Hyperlipidemia Assessment/Plan: statin stopped b/c of poor prognosis Code(s): E78.5 - HYPERLIPIDEMIA, UNSPECIFIED (8) Hypertension Assessment/Plan: controlled continue arb/bb/ccb cardiology following Code(s): I10 - ESSENTIAL (PRIMARY) HYPERTENSION (9) Pacemaker Code(s): Z95.0 - PRESENCE OF CARDIAC PACEMAKER Dispo: recommend SNF, sw informed. palliative following, met with family, pt made DNR. She would want a trial of intubation but not longer then 10days. Pt would not want feeding tube or dialysis. d/c planning in place
--- NOTE | 2017-09-15 12:59 | PN ---
Progress Note (short form) - Note Progress Note: Overall feeling better. Less discomfort at Pleur-x site. 190 cc out. CXR: no PTX / right effusion Intake & Output 09/12/17 09/13/17 09/14/17 09/15/17 23:59 23:59 23:59 23:59 Intake Total 120 120 120 250 Output Total 350 198 390 190 Balance -230 -78 -270 60 Last Vital Signs Temp Pulse Resp BP Pulse Ox 98.2 F 64 20 148/53 90 L 09/15/17 09:00 09/15/17 09:39 09/15/17 09:00 09/15/17 09:00 09/15/17 10:00 Active Medications Acetaminophen (Tylenol -) 650 mg PO Q4H PRN PRN Reason: FEVER Last Admin: 09/15/17 09:41 Dose: 650 mg Apixaban (Eliquis -) 2.5 mg PO BID [facility] Last Admin: 09/15/17 09:39 Dose: 2.5 mg Ascorbic Acid (Vitamin C -) 500 mg PO DAILY [facility] Last Admin: 09/15/17 09:40 Dose: 500 mg Cholecalciferol (Vitamin D3 -) 5,000 unit PO DAILY [facility] Last Admin: 09/15/17 09:39 Dose: 5,000 unit Cyanocobalamin (Vitamin B12 -) 1,000 mcg PO DAILY [facility] Last Admin: 09/15/17 09:39 Dose: 1,000 mcg Digoxin (Lanoxin -) 0.125 mg PO DAILY [facility] Last Admin: 09/15/17 09:39 Dose: 0.125 mg Diltiazem HCl (Cardizem Cd -) 180 mg PO DAILY [facility] Last Admin: 09/15/17 09:39 Dose: 180 mg Fentanyl (Sublimaze Injection -) 100 mcg IVPUSH Q6H PRN PRN Reason: PAIN LEVEL 6-10 Magnesium Oxide (Mag-Ox -) 400 mg PO BID [facility] Last Admin: 09/15/17 09:39 Dose: 400 mg Metoprolol Succinate (Toprol Xl -) 25 mg PO DAILY [facility] Last Admin: 09/15/17 09:40 Dose: 25 mg Oxycodone HCl (Roxicodone -) 5 mg PO Q4H PRN PRN Reason: PAIN LEVEL 7 - 10 Last Admin: 09/15/17 08:31 Dose: 5 mg Pyridoxine HCl (Vitamin B6 -) 50 mg PO DAILY [facility] Last Admin: 09/14/17 10:24 Dose: 50 mg Sertraline HCl (Zoloft -) 25 mg PO DAILY [facility] Last Admin: 09/15/17 09:39 Dose: 25 mg Sucralfate (Carafate Oral Suspension -) 1 gm PO DAILY [facility] Last Admin: 09/15/17 09:39 Dose: 1 gm Valsartan (Diovan -) 320 mg PO DAILY [facility] Last Admin: 09/15/17 09:39 Dose: 320 mg Gen: less tachypneic Heart: RRR Lung: decreased breath sounds right base Abd: soft, nontender Ext: no edema Laboratory Results - last 24 hr 09/15/17 09/15/17 06:00 06:00 WBC 10.8 H RBC 4.29 Hgb 12.8 Hct 39.1 MCV 91.1 MCH 29.9 MCHC 32.9 RDW 16.7 H Plt Count 244 MPV 9.2 Absolute Neuts (auto) 8.3 Neutrophils % 77.5 Lymphocytes % 9.9 Monocytes % 9.7 Eosinophils % 2.3 Basophils % 0.6 Nucleated RBC % 0 Sodium 141 Potassium 4.9 Chloride 98 Carbon Dioxide 42 H Anion Gap 1 L BUN 18 Creatinine 0.7 Creat Clearance w eGFR > 60 Random Glucose 98 Calcium 8.7 Magnesium 2.1 A/P Acute on Chronic Hypoxic Respiratory Failure 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 - O2 to keep SpO2 >90% - inhaled bronchodilators - rate controlled - AC - completed empiric antibiotics - continue discussions regarding goals of care Dr Palomino
--- NOTE | 2017-09-15 15:39 | PATH ---
Cytology Non-Gynecological Report Patient Name: RENZO VERA [facility]. Rec. #: [id number] /Age/Gender: 1935 (Age: 81) / F Account: [id number] Location: 4 SO PEDS/ADOL Taken: 09/09/2017 Received: 09/09/2017 Reported: 09/15/2017 Physicians: Neal Sanderson M.D. Tong Prince M.D., PhD Specimen(s) Received PLEURAL FLUID Clinical History Small cell carcinoma Final Diagnosis PLEURAL FLUID, THORACENTESIS: SATISFACTORY FOR EVALUATION. POSITIV E FOR MALIGNANT CELLS. COMPATIBLE WITH SMALL CELL CARCINOMA. MALIGNANT CELLS WITH HYPERCHROMASIA, NUCLEAR MOLDING, IDENTIFIABLE MITOSIS, DISPERSED COHESIVE AGGREGATES IN A BACKGROUND OF MESOTHELIAL CELLS AND LYMPHOCYTES PRESENT. Comment: Immunohistochemical stains performed and interpreted at [facility] show the tumor is focally positive for p63, rare weak positivity with synaptophysin; while negative for TTF-1 and chromogranin. Immunohistochemical stains performed at [place], [place] ([id number]) and interpreted at [facility] show the tumor is positive for AIMEE and CD56 (rare, weak); while negative for D240 and calretinin. Overall cytomorphology and immunophenotype is compatible with known history of small cell carcinoma. Prior materials are noted. Electronically Signed Chiara Pichardo M.D. Gross Description Approximately 20 cc of yellow fluid received fresh. Two cytofunnels and one cellblock prepared.
--- NOTE | 2017-09-15 16:33 | PN ---
Progress Note (short form) - Note Progress Note: Patient seen and examined Continues to have drainage from Chest tube- 160 cc to date today ROS- no headaches, SOB, no chest pains, No GI complaints, anorexia Last Vital Signs Temp Pulse Resp BP Pulse Ox 98.3 F 80 16 117/55 90 L 09/15/17 14:42 09/15/17 14:42 09/15/17 14:42 09/15/17 14:42 09/15/17 10:00 HEENT: JANNETH, EOM Intact Oropharynx: No thrush, No mucositis,dentures Cor: RSR, No murmurs, No gallops,paced Lungs: diminished breath sounds, crackles bases Abd: Soft, Normal bowel sounds, No organomegaly Ext:No significant edema Skin: No rashes, Integument intact, Ecchymoses right arm. CBC, BMP 09/15/17 06:00 09/15/17 06:00 Current Medications Generic Name Dose Route Start Last Admin Trade Name Freq PRN Reason Stop Dose Admin Acetaminophen 650 mg 09/10/17 15:17 09/15/17 09:41 Tylenol - PO 650 mg Q4H PRN Administration FEVER Apixaban 2.5 mg 09/10/17 22:00 09/15/17 09:39 Eliquis - PO 2.5 mg BID REBECCA Administration Ascorbic Acid 500 mg 09/12/17 10:00 09/15/17 09:40 Vitamin C - PO 500 mg DAILY REBECCA Administration Cholecalciferol 5,000 unit 09/12/17 10:00 09/15/17 09:39 Vitamin D3 - PO 5,000 unit DAILY [facility] Administration Cyanocobalamin 1,000 mcg 09/12/17 10:00 09/15/17 09:39 Vitamin B12 - PO 1,000 mcg DAILY RE[facility] Administration Digoxin 0.125 mg 09/12/17 10:00 09/15/17 09:39 Lanoxin - PO 0.125 mg DAILY REBECCA Administration Diltiazem HCl 180 mg 09/12/17 10:00 09/15/17 09:39 Cardizem Cd - PO 180 mg DAILY REBE[facility] Administration Magnesium Oxide 400 mg 09/11/17 22:00 09/15/17 09:39 Mag-Ox - PO 400 mg BID REBECCA Administration Metoprolol Succinate 25 mg 09/12/17 10:00 09/15/17 09:40 Toprol Xl - PO 25 mg DAILY RE[facility] Administration Oxycodone HCl 5 mg 09/14/17 20:04 09/15/17 08:31 Roxicodone - PO 5 mg Q4H PRN Administration PAIN LEVEL 7 - 10 Pyridoxine HCl 50 mg 09/12/17 10:00 09/14/17 10:24 Vitamin B6 - PO 50 mg DAILY REBECCA Administration Sertraline HCl 25 mg 09/12/17 10:00 09/15/17 09:39 Zoloft - PO 25 mg DAILY [facility] Administration Sucralfate 1 gm 09/12/17 10:00 09/15/17 09:39 Carafate Oral Suspension - PO 1 gm DAILY [facility] Administration Valsartan 320 mg 09/12/17 10:00 09/15/17 09:39 Diovan - PO 320 mg DAILY REBECCA Administration Impression: Neuroendocrine Tumor COPD Pleural effusion-positive cytology chest tube drainage Pleurex S/P VATS Patient now seems to be in favor of chemotherapy. Will transfer to . For first cycle will try and avoid port placement. If it is ongoing , will need port placement.
--- NOTE | 2017-09-15 18:17 | PN ---
Progress Note (short form) - Note Progress Note: To defer on transfer to 7[facility] until ? of fungal infection , detected at time of bronchoscopy is further evaluated by I.D.
[2017-09-16] MEDS: ACETAMINOPHEN 325 MG TABLET (FP) PO PRN ×4 (06:14→21:21)
[2017-09-16] MEDS: oxyCODONE HCL 5 MG TABLET PO PRN ×4 (06:15→21:21)
[2017-09-16 06:29] LABS: BASO % 0.7 % (0-2.0); EOS % 3.4 % (0-4.5); HEMATOCRIT 38.2 % (32.4-45.2); HEMOGLOBIN 12.5 GM/dL (10.7-15.3); LYMPH % 11.1 % (8-40); MCH 29.9 pg (25.7-33.7); MCHC 32.8 g/dl (32.0-36.0); MEAN CELL VOLUME 91.1 fl (80-96); MEAN PLT VOLUME 8.8 fl (7.5-11.1); MONO % 10.2 % (3.8-10.2); NEUT % 74.6 % (42.8-82.8); PLATELET COUNT 238 K/MM3 (134-434); RBC 4.19 M/mm3 (3.60-5.2); RDW 16.7 % (11.6-15.6); WHITE BLOOD COUNT 9.5 K/mm3 (4.0-10.0)
[2017-09-16 07:11] LABS: ANION GAP 5 (8-16); BLOOD UREA NITROGEN 21 mg/dL (7-18); CALCIUM 8.7 mg/dL (8.5-10.1); CHLORIDE 98 mmol/L (98-107); CO2 38 mmol/L (21-32); CREATININE 0.8 mg/dL (0.55-1.02); GLUCOSE,RANDOM 90 mg/dL (74-106); POTASSIUM 4.9 mmol/L (3.5-5.1); SODIUM 141 mmol/L (136-145)
[2017-09-16] MEDS ORDERED: PT OWN MED DRAWER 7, Y5N ONE (08:53)
--- NOTE | 2017-09-16 09:08 | PN ---
Progress Note (short form) - Note Progress Note: s: no cp, palps, edema, dizzy. sob improving tele: v paced, afib, PVCs occasional Current Medications Acetaminophen (Tylenol -) 650 mg PO Q4H PRN PRN Reason: FEVER Last Admin: 09/16/17 06:14 Dose: 650 mg Apixaban (Eliquis -) 2.5 mg PO BID [facility] Last Admin: 09/15/17 22:14 Dose: 2.5 mg Ascorbic Acid (Vitamin C -) 500 mg PO DAILY [facility] Last Admin: 09/15/17 09:40 Dose: 500 mg Cholecalciferol (Vitamin D3 -) 5,000 unit PO DAILY [facility] Last Admin: 09/15/17 09:39 Dose: 5,000 unit Cyanocobalamin (Vitamin B12 -) 1,000 mcg PO DAILY [facility] Last Admin: 09/15/17 09:39 Dose: 1,000 mcg Digoxin (Lanoxin -) 0.125 mg PO DAILY [facility] Last Admin: 09/15/17 09:39 Dose: 0.125 mg Diltiazem HCl (Cardizem Cd -) 180 mg PO DAILY [facility] Last Admin: 09/15/17 09:39 Dose: 180 mg Magnesium Oxide (Mag-Ox -) 400 mg PO BID [facility] Last Admin: 09/15/17 22:15 Dose: 400 mg Metoprolol Succinate (Toprol Xl -) 25 mg PO DAILY [facility] Last Admin: 09/15/17 09:40 Dose: 25 mg Oxycodone HCl (Roxicodone -) 5 mg PO Q4H PRN PRN Reason: PAIN LEVEL 7 - 10 Last Admin: 09/16/17 06:15 Dose: 5 mg Pyridoxine HCl (Vitamin B6 -) 50 mg PO DAILY [facility] Last Admin: 09/15/17 10:00 Dose: Not Given Sertraline HCl (Zoloft -) 25 mg PO DAILY [facility] Last Admin: 09/15/17 09:39 Dose: 25 mg Sucralfate (Carafate Oral Suspension -) 1 gm PO DAILY [facility] Last Admin: 09/15/17 09:39 Dose: 1 gm Valsartan (Diovan -) 320 mg PO DAILY [facility] Last Admin: 09/15/17 09:39 Dose: 320 mg - Objective Vital Signs: Vital Signs Period Temp Pulse Resp BP Sys/Wahl Pulse Ox Last 24 Hr 97.5 F-98.9 F 64-92 16-18 109-135/55-68 90-93 Constitutional: Yes: Well Nourished, No Distress, Calm Cardiovascular: Yes: Regular Rate and Rhythm, S1, S2. No: JVD, Gallop, Murmur Respiratory: Yes: Regular, CTA Bilaterally (absent bases). No: Accessory Muscle Use, Rales, Wheezes Extremities: No: Cold Edema: No Neurological: Yes: Alert, Oriented Psychiatric: No: Agitated Assessment/Plan MIBI 05/21 ([facility]): no STs, minimal apical isch vs variable brst (small LV/hyper EF) Echo 05/2016 ([facility]): tds; nl lv, nl rv size, mild , mild mr, mild-mod tr; rvsp 40-50, mod ao root dil EKG 09/08/17 V paced 81 f hx afib, htn, hld, tachy/maricruz syndrome s/p ppm, copd, pad s/p rle bypass, possible cad (equivocal MIBI), chronic sob/briones/palps likely related to anxiety, esophageal ca s/p laser treatment, neuroendocrine small cell carcinoma of lung p /w shortness of breath now s/p VATS and pleur-x catheter placement with hypotension Hypotension - resolved, BP stable off of hydralazine - continue dilt, metoprolol s/p PPM - last interrogated 07/2017 stable function Afib - dig, dilt, eliquis at home, continue - rates stable, would discontinue tele CAD - hx equivocal stress - on arb, statin at home, continue h/o HFPEF - euvolemic, urinary incontinence, holding lasix for now - resume lasix at 20 qod on hosp discharge. PAD s/p bypass - continue ARB, statin lung cancer/malign effusion s/p VATS - per pulm, onc, thoracic surgery would discontinue tele, stable from cardiac perspective
[2017-09-16] MEDS: APIXABAN 2.5 MG TABLET PO SCH ×2 (09:25→21:21)
[2017-09-16] MEDS: ASCORBIC ACID 500 MG TABLET (FP) PO SCH (09:25)
[2017-09-16] MEDS: SERTRALINE HCL 25 MG TABLET (FP) PO SCH (09:25)
[2017-09-16] MEDS: SUCRALFATE 1 GM/10 ML UNIT DOSE CUPS PO SCH (09:25)
[2017-09-16] MEDS: DIGOXIN 0.125 MG TABLET (FP) PO SCH (09:25)
[2017-09-16] MEDS: metoPROLOL SUCCINATE 25 MG TAB.SR.24H (FP) PO SCH (09:25)
[2017-09-16] MEDS: CYANOCOBALAMIN 1,000 MCG TABLET (FP) PO SCH (09:25)
[2017-09-16] MEDS: VALSARTAN 160 MG TABLET (UD) PO SCH (09:25)
[2017-09-16] MEDS: MAGNESIUM OXIDE 400 MG TABLET (FP) PO SCH ×2 (09:25→21:21)
[2017-09-16] MEDS: PYRIDOXINE HCL (B-6) 50 MG TABLET (FP) PO SCH (09:25)
[2017-09-16] MEDS: CHOLECALCIFEROL (VITAMIN D3) 1,000 UNIT TABLET (FP) PO SCH (09:25)
[2017-09-16 10:58] LABS: URINE APPEARANCE CLEAR; URINE BILIRUBIN NEGATIVE (<2.0 mg/dL); URINE COLOR LTYELLOW; URINE GLUCOSE (UA) NEGATIVE (NEGATIVE); URINE KETONE NEGATIVE (NEGATIVE); URINE LEUK ESTERASE NEGATIVE (NEGATIVE); URINE NITRITE NEGATIVE (NEGATIVE); URINE PROTEIN NEGATIVE (NEGATIVE); URINE UROBILINOGEN NEGATIVE mg/dL (0.2-1.0)
--- NOTE | 2017-09-16 11:58 | PN ---
Progress Note, Physician Chief Complaint: Ms Moncada complains of pain at the catheter site and her chronic low back pain. Denies sob or n/v, however does state she has decreased appetite. - Current Medication List Current Medications: Active Medications Acetaminophen (Tylenol -) 650 mg PO Q4H PRN PRN Reason: FEVER Last Admin: 09/16/17 06:14 Dose: 650 mg Apixaban (Eliquis -) 2.5 mg PO BID [facility] Last Admin: 09/16/17 09:25 Dose: 2.5 mg Ascorbic Acid (Vitamin C -) 500 mg PO DAILY [facility] Last Admin: 09/16/17 09:25 Dose: 500 mg Cholecalciferol (Vitamin D3 -) 5,000 unit PO DAILY [facility] Last Admin: 09/16/17 09:25 Dose: 5,000 unit Cyanocobalamin (Vitamin B12 -) 1,000 mcg PO DAILY [facility] Last Admin: 09/16/17 09:25 Dose: 1,000 mcg Digoxin (Lanoxin -) 0.125 mg PO DAILY [facility] Last Admin: 09/16/17 09:25 Dose: 0.125 mg Diltiazem HCl (Cardizem Cd -) 180 mg PO DAILY [facility] Last Admin: 09/16/17 09:25 Dose: 180 mg Magnesium Oxide (Mag-Ox -) 400 mg PO BID [facility] Last Admin: 09/16/17 09:25 Dose: 400 mg Metoprolol Succinate (Toprol Xl -) 25 mg PO DAILY [facility] Last Admin: 09/16/17 09:25 Dose: 25 mg Oxycodone HCl (Roxicodone -) 5 mg PO Q4H PRN PRN Reason: PAIN LEVEL 7 - 10 Last Admin: 09/16/17 06:15 Dose: 5 mg Pyridoxine HCl (Vitamin B6 -) 50 mg PO DAILY [facility] Last Admin: 09/16/17 09:25 Dose: 50 mg Sertraline HCl (Zoloft -) 25 mg PO DAILY [facility] Last Admin: 09/16/17 09:25 Dose: 25 mg Sucralfate (Carafate Oral Suspension -) 1 gm PO DAILY [facility] Last Admin: 09/16/17 09:25 Dose: 1 gm Valsartan (Diovan -) 320 mg PO DAILY [facility] Last Admin: 09/16/17 09:25 Dose: 320 mg - Objective Vital Signs: Vital Signs Temperature 36.7 C 09/16/17 10:00 Pulse Rate 66 09/16/17 10:00 Respiratory Rate 18 09/16/17 10:00 Blood Pressure 113/57 09/16/17 10:00 O2 Sat by Pulse Oximetry (%) 91 L 09/16/17 09:00 Constitutional: Yes: Well Nourished, No Distress, Calm Cardiovascular: Yes: Pulse Irregular. No: Gallop, Murmur, Rub Respiratory: Yes: Regular, On Nasal O2, Rhonchi (slight). No: CTA Bilaterally, Rales, Wheezes Gastrointestinal: Yes: Normal Bowel Sounds, Soft. No: Distention, Tenderness Extremities: Yes: WNL Edema: No Labs: CBC, BMP 09/16/17 06:00 09/16/17 06:00 INR, PTT INR 1.34 (0.83-1.09) 09/08/17 05:40 Problem List - Problems (1) Acute and chronic respiratory failure with hypoxia Code(s): J96.21 - ACUTE AND CHRONIC RESPIRATORY FAILURE WITH HYPOXIA (2) Pleural effusion Code(s): J90 - PLEURAL EFFUSION, NOT ELSEWHERE CLASSIFIED (3) COPD exacerbation Code(s): J44.1 - CHRONIC OBSTRUCTIVE PULMONARY DISEASE W (ACUTE) EXACERBATION (4) Lung cancer Code(s): C34.90 - MALIGNANT NEOPLASM OF UNSP PART OF UNSP BRONCHUS OR LUNG Qualifiers: Laterality: right Lung location: unspecified part of lung Qualified Code( s): C34.91 - Malignant neoplasm of unspecified part of right bronchus or lung (5) Atrial fibrillation Code(s): I48.91 - UNSPECIFIED ATRIAL FIBRILLATION Qualifiers: Atrial fibrillation type: chronic Qualified Code(s): I48.2 - Chronic atrial fibrillation (6) CHF (congestive heart failure) Code(s): I50.9 - HEART FAILURE, UNSPECIFIED (7) Hyperlipidemia Code(s): E78.5 - HYPERLIPIDEMIA, UNSPECIFIED (8) Hypertension Code(s): I10 - ESSENTIAL (PRIMARY) HYPERTENSION (9) Pacemaker Code(s): Z95.0 - PRESENCE OF CARDIAC PACEMAKER (10) Pain Code(s): R52 - PAIN, UNSPECIFIED Assessment/Plan (1) Acute and chronic respiratory failure with hypoxia Assessment/Plan: -at baseline Code(s): J96.21 - ACUTE AND CHRONIC RESPIRATORY FAILURE WITH HYPOXIA (2) Pleural effusion Assessment/Plan: -malignant -would prefer to undergo chemotherapy -previous bronchoscopy in July showed mold in specimen -case d/w ID, outside experts consulted on safety of starting chemotherapy in this situation -awaiting recommendations Code(s): J90 - PLEURAL EFFUSION, NOT ELSEWHERE CLASSIFIED (3) COPD exacerbation Assessment/Plan: -stable -continue oxygen support -continue inhalers Code(s): J44.1 - CHRONIC OBSTRUCTIVE PULMONARY DISEASE W (ACUTE) EXACERBATION (4) Lung cancer Assessment/Plan: -high grade neuroendocrine small cell carcinoma -as above concerning chemotherapy -oncology following -monitor intake, may benefit from appetite stimulant Code(s): C34.90 - MALIGNANT NEOPLASM OF UNSP PART OF UNSP BRONCHUS OR LUNG Qualifiers: Laterality: right Lung location: unspecified part of lung Qualified Code( s): C34.91 - Malignant neoplasm of unspecified part of right bronchus or lung (5) Atrial fibrillation Assessment/Plan: -controlled -placed back on eliquis Code(s): I48.91 - UNSPECIFIED ATRIAL FIBRILLATION Qualifiers: Atrial fibrillation type: chronic Qualified Code(s): I48.2 - Chronic atrial fibrillation (6) CHF (congestive heart failure) Assessment/Plan: -continue lasix Code(s): I50.9 - HEART FAILURE, UNSPECIFIED Qualifiers: Qualified Code(s): I50.9 - Heart failure, unspecified (7) Hyperlipidemia Assessment/Plan: -considering overall prognosis, will stop statin Code(s): E78.5 - HYPERLIPIDEMIA, UNSPECIFIED (8) Hypertension Assessment/Plan: -continue home regimen -monitor Code(s): I10 - ESSENTIAL (PRIMARY) HYPERTENSION (9) Pacemaker Code(s): Z95.0 - PRESENCE OF CARDIAC PACEMAKER (10) Pain -mainly back pain -? if having malignant pain as well -continue oxycodone currently -may benefit from long acting pain medication like MS Contin or methadone -monitor
--- NOTE | 2017-09-16 12:32 | PN ---
Progress Note (short form) - Note Progress Note: Increased LBP today (somewhat chronic). RN at bedside to dispense pain meds ( Oxy/Tylenol). Overall less discomfort at Pleur-x site. 120 cc out. Intake & Output 09/13/17 09/14/17 09/15/17 09/16/17 23:59 23:59 23:59 23:59 Intake Total 120 120 600 350 Output Total 198 390 390 120 Balance -78 -270 210 230 Last Vital Signs Temp Pulse Resp BP Pulse Ox 98.0 F 66 18 113/57 91 L 09/16/17 10:00 09/16/17 10:00 09/16/17 10:00 09/16/17 10:00 09/16/17 09:00 Active Medications Acetaminophen (Tylenol -) 650 mg PO Q4H PRN PRN Reason: FEVER Last Admin: 09/16/17 12:26 Dose: 650 mg Apixaban (Eliquis -) 2.5 mg PO BID [facility] Last Admin: 09/16/17 09:25 Dose: 2.5 mg Ascorbic Acid (Vitamin C -) 500 mg PO DAILY [facility] Last Admin: 09/16/17 09:25 Dose: 500 mg Cholecalciferol (Vitamin D3 -) 5,000 unit PO DAILY [facility] Last Admin: 09/16/17 09:25 Dose: 5,000 unit Cyanocobalamin (Vitamin B12 -) 1,000 mcg PO DAILY [facility] Last Admin: 09/16/17 09:25 Dose: 1,000 mcg Digoxin (Lanoxin -) 0.125 mg PO DAILY [facility] Last Admin: 09/16/17 09:25 Dose: 0.125 mg Diltiazem HCl (Cardizem Cd -) 180 mg PO DAILY [facility] Last Admin: 09/16/17 09:25 Dose: 180 mg Magnesium Oxide (Mag-Ox -) 400 mg PO BID [facility] Last Admin: 09/16/17 09:25 Dose: 400 mg Metoprolol Succinate (Toprol Xl -) 25 mg PO DAILY [facility] Last Admin: 09/16/17 09:25 Dose: 25 mg Oxycodone HCl (Roxicodone -) 5 mg PO Q4H PRN PRN Reason: PAIN LEVEL 7 - 10 Last Admin: 09/16/17 12:25 Dose: 5 mg Pyridoxine HCl (Vitamin B6 -) 50 mg PO DAILY [facility] Last Admin: 09/16/17 09:25 Dose: 50 mg Sertraline HCl (Zoloft -) 25 mg PO DAILY [facility] Last Admin: 09/16/17 09:25 Dose: 25 mg Sucralfate (Carafate Oral Suspension -) 1 gm PO DAILY [facility] Last Admin: 09/16/17 09:25 Dose: 1 gm Valsartan (Diovan -) 320 mg PO DAILY [facility] Last Admin: 09/16/17 09:25 Dose: 320 mg Gen: Uncomfortable due to pain Heart: RRR Lung: decreased breath sounds right base Abd: soft, nontender Ext: no edema Laboratory Results - last 24 hr 09/16/17 09/16/17 09/16/17 06:00 06:00 09:50 WBC 9.5 RBC 4.19 Hgb 12.5 Hct 38.2 MCV 91.1 MCH 29.9 MCHC 32.8 RDW 16.7 H Plt Count 238 MPV 8.8 Absolute Neuts (auto) 7.1 Neutrophils % 74.6 Lymphocytes % 11.1 Monocytes % 10.2 Eosinophils % 3.4 Basophils % 0.7 Nucleated RBC % 0 Sodium 141 Potassium 4.9 Chloride 98 Carbon Dioxide 38 H Anion Gap 5 L BUN 21 H Creatinine 0.8 Creat Clearance w eGFR > 60 Random Glucose 90 Calcium 8.7 Urine Color Ltyellow Urine Appearance Clear Urine pH 7.0 Ur Specific [place] 1.009 Urine Protein Negative Urine Glucose (UA) Negative Urine Ketones Negative Urine Blood Negative Urine Nitrite Negative Urine Bilirubin Negative Urine Urobilinogen Negative Ur Leukocyte Esterase Negative A/P Acute on Chronic Hypoxic Respiratory Failure Progressive Small Cell Ca with endobronchial involvement Right Pleural Effusion s/p R VATS/pleur-x placement r/o Pneumonia COPD Paroxysmal Atrial Fibrillation s/p PPM PAD - Pain control - monitor chest tube drainage: can cap anytime and monitor. - O2 to keep SpO2 >90% - inhaled bronchodilators - rate controlled - AC - completed empiric antibiotics - continue discussions regarding goals of care Dr Palomino
--- NOTE | 2017-09-16 18:26 | PN ---
Progress Note (short form) - Note Progress Note: Patient seen and examined Little change On oxygen, SOB, dyspneic and tachypneis Chest tube drainage Discussed with Mely Marquez to proceed with tretment. Will transfer to . Last Vital Signs Temp Pulse Resp BP Pulse Ox 97.8 F 83 20 137/63 91 L 09/16/17 18:15 09/16/17 18:15 09/16/17 18:15 09/16/17 18:15 09/16/17 09:00 HEENT: JANNETH, EOM Intact Oropharynx: No thrush, No mucositis Cor: RSR, No murmurs, No gallops Lungs: diminished breath sounds. Rhonchi Abd: Soft, Normal bowel sounds, No organomegaly Ext:No significant edema Skin: No rashes, Integument intact CBC, BMP 09/16/17 06:00 09/16/17 06:00 Impr: Neuroendocrine tumor of lung - high grade COPD S/P VATS/pleurex Pleural effusion- malignant Plan: Trial of chemotherapy.
--- NOTE | 2017-09-16 21:41 | PN ---
Progress Note (short form) - Note Progress Note: D/W Dr Garibay prior bronch cultures reviewed exophiala most commonly is a contaminant ben was negative for fungal element, suggesting contaminant will get fungitell and galactomannon for completeness will ask path to review biopsy sample if available in am as well (d/w pathologist) Problem List - Problems (1) SOB (shortness of breath) Code(s): R06.02 - SHORTNESS OF BREATH (2) Pleural effusion Code(s): J90 - PLEURAL EFFUSION, NOT ELSEWHERE CLASSIFIED (3) Lung cancer Code(s): C34.90 - MALIGNANT NEOPLASM OF UNSP PART OF UNSP BRONCHUS OR LUNG Qualifiers: Laterality: right Lung location: unspecified part of lung Qualified Code( s): C34.91 - Malignant neoplasm of unspecified part of right bronchus or lung
[2017-09-17 05:57] LABS: BASO % 0.8 % (0-2.0); EOS % 3.1 % (0-4.5); HEMATOCRIT 37.2 % (32.4-45.2); HEMOGLOBIN 12.4 GM/dL (10.7-15.3); MCH 30.3 pg (25.7-33.7); MCHC 33.3 g/dl (32.0-36.0); MEAN CELL VOLUME 91.2 fl (80-96); MEAN PLT VOLUME 8.9 fl (7.5-11.1); MONO % 12.1 % (3.8-10.2); PLATELET COUNT 237 K/MM3 (134-434); RBC 4.08 M/mm3 (3.60-5.2); RDW 16.6 % (11.6-15.6); WHITE BLOOD COUNT 9.7 K/mm3 (4.0-10.0)
[2017-09-17 06:22] LABS: ANION GAP 4 (8-16); BLOOD UREA NITROGEN 25 mg/dL (7-18); CALCIUM 8.6 mg/dL (8.5-10.1); CHLORIDE 97 mmol/L (98-107); CO2 39 mmol/L (21-32); CREATININE 0.8 mg/dL (0.55-1.02); GLUCOSE,RANDOM 95 mg/dL (74-106); MAGNESIUM 2.2 mg/dL (1.8-2.4); PHOSPHOROUS 4.4 mg/dL (2.5-4.9); POTASSIUM 4.9 mmol/L (3.5-5.1); SODIUM 140 mmol/L (136-145)
[2017-09-17] MEDS: ACETAMINOPHEN 325 MG TABLET (FP) PO PRN ×2 (06:26→20:15)
[2017-09-17] MEDS: oxyCODONE HCL 5 MG TABLET PO PRN ×3 (06:26→20:15)
--- NOTE | 2017-09-17 06:45 | PN ---
Progress Note (short form) - Note Progress Note: Patient seen and examined I.D. note reviewed and appreciated. Finalizing question of fungal contaminant at time of bronchoscopy To be transferred to in anticipation of chemotherapy Remains weak, cachectic , and debilitated Remains SOB and dyspneic Denies headache, nausea, emesis, diarrhea, significant pains although still with pains at surgical site Last Vital Signs Temp Pulse Resp BP Pulse Ox 98.1 F 63 20 124/53 91 L 09/16/17 22:00 09/16/17 22:00 09/16/17 22:00 09/16/17 22:00 09/16/17 22:00 HEENT: JANNETH, EOM Intact Oropharynx: No thrush, No mucositis,dentures Neck: Supple Cor: RSR, No murmurs, No gallops Lungs: diminished breath sounds bilaterally Abd: Soft, Normal bowel sounds, No organomegaly Ext:No significant edema Skin: No rashes, Integument intact CBC, BMP 09/17/17 05:45 09/17/17 05:45 Current Medications Generic Name Dose Route Start Last Admin Trade Name Freq PRN Reason Stop Dose Admin Acetaminophen 650 mg 09/10/17 15:17 09/17/17 06:26 Tylenol - PO 650 mg Q4H PRN Administration FEVER Apixaban 2.5 mg 09/10/17 22:00 09/16/17 21:21 Eliquis - PO 2.5 mg BID REBECCA Administration Ascorbic Acid 500 mg 09/12/17 10:00 09/16/17 09:25 Vitamin C - PO 500 mg DAILY [facility] Administration Cholecalciferol 5,000 unit 09/12/17 10:00 09/16/17 09:25 Vitamin D3 - PO 5,000 unit DAILY [facility] Administration Cyanocobalamin 1,000 mcg 09/12/17 10:00 09/16/17 09:25 Vitamin B12 - PO 1,000 mcg DAILY [facility] Administration Digoxin 0.125 mg 09/12/17 10:00 09/16/17 09:25 Lanoxin - PO 0.125 mg DAILY [facility] Administration Diltiazem HCl 180 mg 09/12/17 10:00 09/16/17 09:25 Cardizem Cd - PO 180 mg DAILY [facility] Administration Magnesium Oxide 400 mg 09/11/17 22:00 09/16/17 21:21 Mag-Ox - PO 400 mg BID [facility] Administration Metoprolol Succinate 25 mg 09/12/17 10:00 09/16/17 09:25 Toprol Xl - PO 25 mg DAILY [facility] Administration Oxycodone HCl 5 mg 09/14/17 20:04 09/17/17 06:26 Roxicodone - PO 5 mg Q4H PRN Administration PAIN LEVEL 7 - 10 Pyridoxine HCl 50 mg 09/12/17 10:00 09/16/17 09:25 Vitamin B6 - PO 50 mg DAILY [facility] Administration Sertraline HCl 25 mg 09/12/17 10:00 09/16/17 09:25 Zoloft - PO 25 mg DAILY [facility] Administration Sucralfate 1 gm 09/12/17 10:00 09/16/17 09:25 Carafate Oral Suspension - PO 1 gm DAILY [facility] Administration Valsartan 320 mg 09/12/17 10:00 09/16/17 09:25 Diovan - PO 320 mg DAILY [facility] Administration Chest tube drainage -220 cc/24 hours Impression: High grade neuroendocrine cancer S/P VATS for malignant pleural effusion Pleurex drainage catheter Question of fungal contaminant being assessed Chemotherapy being contemplated
[2017-09-17] MEDS: DIGOXIN 0.125 MG TABLET (FP) PO SCH (09:31)
[2017-09-17] MEDS: CYANOCOBALAMIN 1,000 MCG TABLET (FP) PO SCH (09:31)
[2017-09-17] MEDS: CHOLECALCIFEROL (VITAMIN D3) 1,000 UNIT TABLET (FP) PO SCH (09:31)
[2017-09-17] MEDS: ASCORBIC ACID 500 MG TABLET (FP) PO SCH (09:31)
[2017-09-17] MEDS: metoPROLOL SUCCINATE 25 MG TAB.SR.24H (FP) PO SCH (09:31)
[2017-09-17] MEDS: VALSARTAN 160 MG TABLET (UD) PO SCH (09:31)
[2017-09-17] MEDS: SERTRALINE HCL 25 MG TABLET (FP) PO SCH (09:31)
[2017-09-17] MEDS: MAGNESIUM OXIDE 400 MG TABLET (FP) PO SCH ×2 (09:31→21:26)
[2017-09-17] MEDS: APIXABAN 2.5 MG TABLET PO SCH ×2 (09:31→21:26)
[2017-09-17] MEDS: SUCRALFATE 1 GM/10 ML UNIT DOSE CUPS PO SCH (09:31)
[2017-09-17] MEDS: PYRIDOXINE HCL (B-6) 50 MG TABLET (FP) PO SCH (09:32)
--- NOTE | 2017-09-17 11:11 | PN ---
Progress Note (short form) - Note Progress Note: LBP better today (chronic). Has decided to be treated with Chemo. Overall less discomfort at Pleur-x site. 100 cc out. Intake & Output 09/14/17 09/15/17 09/16/17 09/17/17 23:59 23:59 23:59 23:59 Intake Total 120 600 980 120 Output Total 390 390 360 100 Balance -270 210 620 20 Last Vital Signs Temp Pulse Resp BP Pulse Ox 98.0 F 69 18 114/51 91 L 09/17/17 06:00 09/17/17 09:31 09/17/17 06:00 09/17/17 06:00 09/16/17 22:00 Active Medications Acetaminophen (Tylenol -) 650 mg PO Q4H PRN PRN Reason: FEVER Last Admin: 09/17/17 06:26 Dose: 650 mg Apixaban (Eliquis -) 2.5 mg PO BID [facility] Last Admin: 09/17/17 09:31 Dose: 2.5 mg Ascorbic Acid (Vitamin C -) 500 mg PO DAILY [facility] Last Admin: 09/17/17 09:31 Dose: 500 mg Cholecalciferol (Vitamin D3 -) 5,000 unit PO DAILY [facility] Last Admin: 09/17/17 09:31 Dose: 5,000 unit Cyanocobalamin (Vitamin B12 -) 1,000 mcg PO DAILY [facility] Last Admin: 09/17/17 09:31 Dose: 1,000 mcg Digoxin (Lanoxin -) 0.125 mg PO DAILY [facility] Last Admin: 09/17/17 09:31 Dose: 0.125 mg Diltiazem HCl (Cardizem Cd -) 180 mg PO DAILY [facility] Last Admin: 09/17/17 09:31 Dose: 180 mg Magnesium Oxide (Mag-Ox -) 400 mg PO BID [facility] Last Admin: 09/17/17 09:31 Dose: 400 mg Metoprolol Succinate (Toprol Xl -) 25 mg PO DAILY [facility] Last Admin: 09/17/17 09:31 Dose: 25 mg Oxycodone HCl (Roxicodone -) 5 mg PO Q4H PRN PRN Reason: PAIN LEVEL 7 - 10 Last Admin: 09/17/17 06:26 Dose: 5 mg Pyridoxine HCl (Vitamin B6 -) 50 mg PO DAILY [facility] Last Admin: 09/17/17 09:32 Dose: 50 mg Sertraline HCl (Zoloft -) 25 mg PO DAILY [facility] Last Admin: 09/17/17 09:31 Dose: 25 mg Sucralfate (Carafate Oral Suspension -) 1 gm PO DAILY [facility] Last Admin: 09/17/17 09:31 Dose: 1 gm Valsartan (Diovan -) 320 mg PO DAILY [facility] Last Admin: 09/17/17 09:31 Dose: 320 mg Gen: Mildly uncomfortable due to pain Heart: RRR Lung: decreased breath sounds right base Abd: soft, nontender Ext: no edema Laboratory Results - last 24 hr 09/16/17 09/17/17 09/17/17 09:50 05:45 05:45 WBC 9.7 RBC 4.08 Hgb 12.4 Hct 37.2 MCV 91.2 MCH 30.3 MCHC 33.3 RDW 16.6 H Plt Count 237 MPV 8.9 Absolute Neuts (auto) 6.9 Neutrophils % 71.0 Lymphocytes % 13.0 Monocytes % 12.1 H Eosinophils % 3.1 Basophils % 0.8 Nucleated RBC % 0 Sodium 140 Potassium 4.9 Chloride 97 L Carbon Dioxide 39 H Anion Gap 4 L BUN 25 H Creatinine 0.8 Creat Clearance w eGFR > 60 Random Glucose 95 Calcium 8.6 Phosphorus 4.4 Magnesium 2.2 Urine Color Ltyellow Urine Appearance Clear Urine pH 7.0 Ur Specific [place] 1.009 Urine Protein Negative Urine Glucose (UA) Negative Urine Ketones Negative Urine Blood Negative Urine Nitrite Negative Urine Bilirubin Negative Urine Urobilinogen Negative Ur Leukocyte Esterase Negative A/P Acute on Chronic Hypoxic Respiratory Failure Progressive Small Cell Ca with endobronchial involvement Right Pleural Effusion s/p R VATS/pleur-x placement r/o Pneumonia COPD Paroxysmal Atrial Fibrillation s/p PPM PAD - Pain control - monitor chest tube drainage: can cap anytime and monitor. - O2 to keep SpO2 >90% - inhaled bronchodilators - rate controlled - AC - completed empiric antibiotics - Patient has decided for Chemotherapy Dr Palomino
--- NOTE | 2017-09-17 11:29 | PN ---
Progress Note (short form) - Note Progress Note: s: no cp, palps, edema, dizzy sob tele: v paced, afib Current Medications Generic Name Dose Route Start Last Admin Trade Name Pjq PRN Reason Stop Dose Admin Acetaminophen 650 mg 09/10/17 15:17 09/17/17 06:26 Tylenol - PO 650 mg Q4H PRN Administration FEVER Apixaban 2.5 mg 09/10/17 22:00 09/17/17 09:31 Eliquis - PO 2.5 mg BID REBECCA Administration Ascorbic Acid 500 mg 09/12/17 10:00 09/17/17 09:31 Vitamin C - PO 500 mg DAILY REBE[facility] Administration Cholecalciferol 5,000 unit 09/12/17 10:00 09/17/17 09:31 Vitamin D3 - PO 5,000 unit DAILY RE[facility] Administration Cyanocobalamin 1,000 mcg 09/12/17 10:00 09/17/17 09:31 Vitamin B12 - PO 1,000 mcg DAILY [facility] Administration Digoxin 0.125 mg 09/12/17 10:00 09/17/17 09:31 Lanoxin - PO 0.125 mg DAILY RE[facility] Administration Diltiazem HCl 180 mg 09/12/17 10:00 09/17/17 09:31 Cardizem Cd - PO 180 mg DAILY RE[facility] Administration Magnesium Oxide 400 mg 09/11/17 22:00 09/17/17 09:31 Mag-Ox - PO 400 mg BID REBE[facility] Administration Metoprolol Succinate 25 mg 09/12/17 10:00 09/17/17 09:31 Toprol Xl - PO 25 mg DAILY RE[facility] Administration Oxycodone HCl 5 mg 09/14/17 20:04 09/17/17 06:26 Roxicodone - PO 5 mg Q4H PRN Administration PAIN LEVEL 7 - 10 Pyridoxine HCl 50 mg 09/12/17 10:00 09/17/17 09:32 Vitamin B6 - PO 50 mg DAILY RE[facility] Administration Sertraline HCl 25 mg 09/12/17 10:00 09/17/17 09:31 Zoloft - PO 25 mg DAILY [facility] Administration Sucralfate 1 gm 09/12/17 10:00 09/17/17 09:31 Carafate Oral Suspension - PO 1 gm DAILY [facility] Administration Valsartan 320 mg 09/12/17 10:00 09/17/17 09:31 Diovan - PO 320 mg DAILY REBECCA Administration - Objective Vital Signs: Vital Signs Period Temp Pulse Resp BP Sys/Wahl Pulse Ox Last 24 Hr 97.8 F-98.7 F 63-83 18-22 114-137/51-63 91-91 Constitutional: Yes: Well Nourished, No Distress, Calm Cardiovascular: Yes: Regular Rate and Rhythm, S1, S2. No: JVD, Gallop, Murmur Respiratory: Yes: Regular, CTA Bilaterally (absent bases). No: Accessory Muscle Use, Rales, Wheezes Extremities: No: Cold Edema: No Neurological: Yes: Alert, Oriented Psychiatric: No: Agitated no jaundice diaphoresis CBC, BMP 09/17/17 05:45 09/17/17 05:45 Assessment/Plan MIBI 05/21 ([facility]): no STs, minimal apical isch vs variable brst (small LV/hyper EF) Echo 05/2016 ([facility]): tds; nl lv, nl rv size, mild , mild mr, mild-mod tr; rvsp 40-50, mod ao root dil EKG 09/08/17 V paced 81 f hx afib, htn, hld, tachy/maricruz syndrome s/p ppm, copd, pad s/p rle bypass, possible cad (equivocal MIBI), chronic sob/briones/palps likely related to anxiety, esophageal ca s/p laser treatment, neuroendocrine small cell carcinoma of lung p /w shortness of breath now s/p VATS and pleur-x catheter placement with hypotension Hypotension - resolved, BP stable off of hydralazine - continue dilt, metoprolol s/p PPM - last interrogated 07/2017 stable function Afib - dig, dilt, eliquis at home, continue - rates stable, would discontinue tele CAD - hx equivocal stress - on arb, statin at home, continue h/o HFPEF - euvolemic, urinary incontinence, holding lasix for now - resume lasix at 20 qod on hosp discharge. PAD s/p bypass - continue ARB, statin lung cancer/malign effusion s/p VATS - per pulm, onc, thoracic surgery would discontinue tele, stable from cardiac perspective
--- NOTE | 2017-09-17 13:23 | PN ---
Progress Note, Physician Chief Complaint: Ms Moncada says she is feeling better today. No cp, sob, n/v. - Current Medication List Current Medications: Active Medications Acetaminophen (Tylenol -) 650 mg PO Q4H PRN PRN Reason: FEVER Last Admin: 09/17/17 06:26 Dose: 650 mg Apixaban (Eliquis -) 2.5 mg PO BID [facility] Last Admin: 09/17/17 09:31 Dose: 2.5 mg Ascorbic Acid (Vitamin C -) 500 mg PO DAILY [facility] [place] Last Admin: 09/17/17 09:31 Dose: 500 mg Cholecalciferol (Vitamin D3 -) 5,000 unit PO DAILY [facility] [place] Last Admin: 09/17/17 09:31 Dose: 5,000 unit Cyanocobalamin (Vitamin B12 -) 1,000 mcg PO DAILY [facility] [place] Last Admin: 09/17/17 09:31 Dose: 1,000 mcg Digoxin (Lanoxin -) 0.125 mg PO DAILY [facility] [place] Last Admin: 09/17/17 09:31 Dose: 0.125 mg Diltiazem HCl (Cardizem Cd -) 180 mg PO DAILY [facility] [place] Last Admin: 09/17/17 09:31 Dose: 180 mg Magnesium Oxide (Mag-Ox -) 400 mg PO BID [facility] [place] Last Admin: 09/17/17 09:31 Dose: 400 mg Metoprolol Succinate (Toprol Xl -) 25 mg PO DAILY [facility] [place] Last Admin: 09/17/17 09:31 Dose: 25 mg Oxycodone HCl (Roxicodone -) 5 mg PO Q4H PRN PRN Reason: PAIN LEVEL 7 - 10 Last Admin: 09/17/17 06:26 Dose: 5 mg Pyridoxine HCl (Vitamin B6 -) 50 mg PO DAILY [facility] [place] Last Admin: 09/17/17 09:32 Dose: 50 mg Sertraline HCl (Zoloft -) 25 mg PO DAILY [facility] [place] Last Admin: 09/17/17 09:31 Dose: 25 mg Sucralfate (Carafate Oral Suspension -) 1 gm PO DAILY [facility] [place] Last Admin: 09/17/17 09:31 Dose: 1 gm Valsartan (Diovan -) 320 mg PO DAILY [facility] [place] Last Admin: 09/17/17 09:31 Dose: 320 mg - Objective Vital Signs: Vital Signs Temperature 36.7 C 09/17/17 06:00 Pulse Rate 69 09/17/17 09:31 Respiratory Rate 18 09/17/17 06:00 Blood Pressure 114/51 09/17/17 06:00 O2 Sat by Pulse Oximetry (%) 91 L 09/16/17 22:00 Constitutional: Yes: No Distress, Calm, Thin Cardiovascular: Yes: Pulse Irregular. No: Tachycardia, Gallop, Murmur, Rub Respiratory: Yes: Regular, Rhonchi (slight, bibasilar). No: CTA Bilaterally, Rales, Wheezes Gastrointestinal: Yes: Normal Bowel Sounds, Soft. No: Distention, Tenderness Extremities: Yes: WNL Edema: No Labs: CBC, BMP 09/17/17 05:45 09/17/17 05:45 INR, PTT INR 1.34 (0.83-1.09) 09/08/17 05:40 Problem List - Problems (1) Acute and chronic respiratory failure with hypoxia Code(s): J96.21 - ACUTE AND CHRONIC RESPIRATORY FAILURE WITH HYPOXIA (2) Pleural effusion Code(s): J90 - PLEURAL EFFUSION, NOT ELSEWHERE CLASSIFIED (3) COPD exacerbation Code(s): J44.1 - CHRONIC OBSTRUCTIVE PULMONARY DISEASE W (ACUTE) EXACERBATION (4) Lung cancer Code(s): C34.90 - MALIGNANT NEOPLASM OF UNSP PART OF UNSP BRONCHUS OR LUNG Qualifiers: Laterality: right Lung location: unspecified part of lung Qualified Code( s): C34.91 - Malignant neoplasm of unspecified part of right bronchus or lung (5) Atrial fibrillation Code(s): I48.91 - UNSPECIFIED ATRIAL FIBRILLATION Qualifiers: Atrial fibrillation type: chronic Qualified Code(s): I48.2 - Chronic atrial fibrillation (6) CHF (congestive heart failure) Code(s): I50.9 - HEART FAILURE, UNSPECIFIED (7) Hyperlipidemia Code(s): E78.5 - HYPERLIPIDEMIA, UNSPECIFIED (8) Hypertension Code(s): I10 - ESSENTIAL (PRIMARY) HYPERTENSION (9) Pacemaker Code(s): Z95.0 - PRESENCE OF CARDIAC PACEMAKER (10) Pain Code(s): R52 - PAIN, UNSPECIFIED Assessment/Plan (1) Acute and chronic respiratory failure with hypoxia Assessment/Plan: -at baseline Code(s): J96.21 - ACUTE AND CHRONIC RESPIRATORY FAILURE WITH HYPOXIA (2) Pleural effusion Assessment/Plan: -pleurx catheter placed Code(s): J90 - PLEURAL EFFUSION, NOT ELSEWHERE CLASSIFIED (3) COPD exacerbation Assessment/Plan: -stable -continue oxygen support -continue inhalers Code(s): J44.1 - CHRONIC OBSTRUCTIVE PULMONARY DISEASE W (ACUTE) EXACERBATION (4) Lung cancer Assessment/Plan: -high grade neuroendocrine small cell carcinoma -planning for chemotherapy per oncology -however bronchoscopy in July growing mold -ID involved and researching if safe to start chemotherapy Code(s): C34.90 - MALIGNANT NEOPLASM OF UNSP PART OF UNSP BRONCHUS OR LUNG Qualifiers: Laterality: right Lung location: unspecified part of lung Qualified Code( s): C34.91 - Malignant neoplasm of unspecified part of right bronchus or lung (5) Atrial fibrillation Assessment/Plan: -controlled -continue eliquis Code(s): I48.91 - UNSPECIFIED ATRIAL FIBRILLATION Qualifiers: Atrial fibrillation type: chronic Qualified Code(s): I48.2 - Chronic atrial fibrillation (6) CHF (congestive heart failure) Assessment/Plan: -continue lasix Code(s): I50.9 - HEART FAILURE, UNSPECIFIED Qualifiers: Qualified Code(s): I50.9 - Heart failure, unspecified (7) Hyperlipidemia Assessment/Plan: -considering overall prognosis, will stop statin Code(s): E78.5 - HYPERLIPIDEMIA, UNSPECIFIED (8) Hypertension Assessment/Plan: -continue home regimen -monitor Code(s): I10 - ESSENTIAL (PRIMARY) HYPERTENSION (9) Pacemaker Code(s): Z95.0 - PRESENCE OF CARDIAC PACEMAKER (10) Pain -controlled today
[2017-09-18] MEDS: oxyCODONE HCL 5 MG TABLET PO PRN ×3 (02:15→21:58)
[2017-09-18] MEDS: ACETAMINOPHEN 325 MG TABLET (FP) PO PRN ×2 (02:16→09:16)
--- NOTE | 2017-09-18 08:29 | PN ---
Progress Note (short form) - Note Progress Note: D/W Dr Garibay d/w pathology bronch biopsy stained and is positive for fungal elements in the areas of necrosis she feels less dyspneic and is eating still with chest tube Vital Signs Period Temp Pulse Resp BP Sys/Wahl Pulse Ox Last 24 Hr 97.8 F-98.6 F 62-84 16-22 110-147/48-73 91-91 cor-rrr lungs clear abd soft,nt ext no edema +chest tube labs pending Microbiology 09/10/17 16:00 Pleural Fluid AFB Smear Concentration - Final 09/10/17 16:00 Pleural Fluid Mycobacterial Culture - Preliminary 09/08/17 05:40 Blood - Peripheral Venous Blood Culture - Final NO GROWTH AFTER 5 DAYS INCUBATION 09/08/17 05:40 Blood - Peripheral Venous Blood Culture - Final NO GROWTH AFTER 5 DAYS INCUBATION 09/09/17 12:24 Pleural Fluid Gram Stain - Final 09/09/17 12:24 Pleural Fluid Body Fluid Culture - Final NO GROWTH OF AEROBIC ORGANISMS AFTER 48 HOURS INCUBATION 09/09/17 12:24 Pleural Fluid Anaerobic Culture - Final NO ANAEROBES WERE ISOLATED 09/10/17 16:00 Pleural Fluid OANH Preparation - Preliminary 09/10/17 16:00 Pleural Fluid Fungal Culture - Preliminary 09/08/17 23:00 Urine - Urine Clean Catch Urine Culture - Final a/p exophilia - fungal lung infection- small cell neuroendocrine lung cancer voriconazole to start today for chemo on Thursday d/w Dr Garibay and pathologist yesterday d/w dr Pederson Problem List - Problems (1) SOB (shortness of breath) Code(s): R06.02 - SHORTNESS OF BREATH (2) Pleural effusion Code(s): J90 - PLEURAL EFFUSION, NOT ELSEWHERE CLASSIFIED (3) Lung cancer Code(s): C34.90 - MALIGNANT NEOPLASM OF UNSP PART OF UNSP BRONCHUS OR LUNG Qualifiers: Laterality: right Lung location: unspecified part of lung Qualified Code( s): C34.91 - Malignant neoplasm of unspecified part of right bronchus or lung
[2017-09-18 08:38] LABS: BASO % 0.8 % (0-2.0); EOS % 2.1 % (0-4.5); HEMATOCRIT 36.3 % (32.4-45.2); LYMPH % 11.5 % (8-40); MEAN PLT VOLUME 8.8 fl (7.5-11.1); MONO % 10.7 % (3.8-10.2); NEUT % 74.9 % (42.8-82.8); PLATELET COUNT 250 K/MM3 (134-434); RBC 3.99 M/mm3 (3.60-5.2); RDW 16.6 % (11.6-15.6); WHITE BLOOD COUNT 8.3 K/mm3 (4.0-10.0)
[2017-09-18 08:58] LABS: ANION GAP 4 (8-16); BLOOD UREA NITROGEN 24 mg/dL (7-18); CALCIUM 8.8 mg/dL (8.5-10.1); CHLORIDE 96 mmol/L (98-107); CO2 40 mmol/L (21-32); CREATININE 0.8 mg/dL (0.55-1.02); GLUCOSE,RANDOM 113 mg/dL (74-106); MAGNESIUM 2.2 mg/dL (1.8-2.4); PHOSPHOROUS 4.1 mg/dL (2.5-4.9); POTASSIUM 4.9 mmol/L (3.5-5.1); SODIUM 140 mmol/L (136-145)
[2017-09-18] MEDS ORDERED: FENTANYL PATCH WASTE MC PRN (09:27)
--- NOTE | 2017-09-18 09:27 | PN ---
Progress Note (short form) - Note Progress Note: Patient seen and examined Dyspneic and complaining of pain at pleurex catheter site Last Vital Signs Temp Pulse Resp BP Pulse Ox 97.8 F 84 18 112/50 91 L 09/18/17 06:00 09/18/17 06:00 09/18/17 06:00 09/18/17 06:00 09/17/17 21:00 Cor -atrial fib Lungs: diminished breath sounds scattered rhonchi Abd: Soft, Normal bowel sounds, No organomegaly Ext:No significant edema Skin: No rashes, Integument intact CBC, BMP 09/18/17 08:15 09/18/17 08:15 Current Medications Generic Name Dose Route Start Last Admin Trade Name Freq PRN Reason Stop Dose Admin Acetaminophen 650 mg 09/18/17 00:15 09/18/17 09:16 Tylenol - PO 650 mg Q4H PRN Administration FEVER Apixaban 2.5 mg 09/18/17 10:00 Eliquis - PO BID REBECCA Ascorbic Acid 500 mg 09/18/17 10:00 Vitamin C - PO DAILY [facility] Cholecalciferol 5,000 unit 09/18/17 10:00 Vitamin D3 - PO DAILY [facility] Cyanocobalamin 1,000 mcg 09/18/17 10:00 Vitamin B12 - PO DAILY REBECCA Digoxin 0.125 mg 09/18/17 10:00 Lanoxin - PO DAILY REBECCA Diltiazem HCl 180 mg 09/18/17 10:00 09/18/17 09:03 Cardizem Cd - PO Not Given DAILY REBECCA Voriconazole 300 mg/ Dextrose 130 mls @ 130 mls/hr 09/18/17 10:00 IVPB 09/19/17 09:59 BID [facility] Magnesium Oxide 400 mg 09/18/17 10:00 Mag-Ox - PO BID REBECCA Metoprolol Succinate 25 mg 09/18/17 10:00 Toprol Xl - PO DAILY REBECCA Oxycodone HCl 5 mg 09/18/17 00:15 09/18/17 09:17 Roxicodone - PO 5 mg Q4H PRN Administration PAIN LEVEL 7 - 10 Pyridoxine HCl 50 mg 09/18/17 10:00 Vitamin B6 - PO DAILY REBECCA Sertraline HCl 25 mg 09/18/17 10:00 Zoloft - PO DAILY [facility] Sucralfate 1 gm 09/18/17 10:00 Carafate Oral Suspension - PO DAILY REBECCA Valsartan 320 mg 09/18/17 10:00 Diovan - PO DAILY REBECCA Impression: High grade Neuroendocrine tumor Pleural effusion - s/p VATS and pleurex catheter Atrial fib on eliquis Fungal infection on bronchoscopy - Anti -fungal therapy Plan will monitor status More debilitated , dyspneic, and will decide merits or lack thereof of treatment over next several days.
--- NOTE | 2017-09-18 09:34 | PN ---
Progress Note (short form) - Note Progress Note: Increased pain around PleureX site. Noticeably more uncomfortable today. Moderate distress due to pain. Intake & Output 09/15/17 09/16/17 09/17/17 09/18/17 23:59 23:59 23:59 23:59 Intake Total 519 733 5112 Output Total 390 360 250 30 Balance 276 287 5829 -30 Last Vital Signs Temp Pulse Resp BP Pulse Ox 97.8 F 84 18 112/50 91 L 09/18/17 06:00 09/18/17 06:00 09/18/17 06:00 09/18/17 06:00 09/17/17 21:00 Active Medications Acetaminophen (Tylenol -) 650 mg PO Q4H PRN PRN Reason: FEVER Last Admin: 09/18/17 09:16 Dose: 650 mg Apixaban (Eliquis -) 2.5 mg PO BID [facility] Ascorbic Acid (Vitamin C -) 500 mg PO DAILY [facility] Cholecalciferol (Vitamin D3 -) 5,000 unit PO DAILY [facility] Cyanocobalamin (Vitamin B12 -) 1,000 mcg PO DAILY [facility] Digoxin (Lanoxin -) 0.125 mg PO DAILY [facility] Diltiazem HCl (Cardizem Cd -) 180 mg PO DAILY [facility] Last Admin: 09/18/17 09:03 Dose: Not Given Fentanyl (Duragesic 12mcg Patch -) 1 patch TD Q72H [facility] Stop: 09/25/17 09:27 Voriconazole 300 mg/ Dextrose 130 mls @ 130 mls/hr IVPB BID [facility] Stop: 09/19/17 09:59 Magnesium Oxide (Mag-Ox -) 400 mg PO BID [facility] Metoprolol Succinate (Toprol Xl -) 25 mg PO DAILY [facility] Miscellaneous (Duragesic Patch Waste) 1 each [facility] PRN PRN PRN Reason: PAIN Oxycodone HCl (Roxicodone -) 5 mg PO Q4H PRN PRN Reason: PAIN LEVEL 7 - 10 Last Admin: 09/18/17 09:17 Dose: 5 mg Pyridoxine HCl (Vitamin B6 -) 50 mg PO DAILY [facility] Sertraline HCl (Zoloft -) 25 mg PO DAILY [facility] Sucralfate (Carafate Oral Suspension -) 1 gm PO DAILY [facility] Valsartan (Diovan -) 320 mg PO DAILY [facility] 2 Gen: Moderate discomfort due to pain Heart: RRR Lung: decreased breath sounds right base Abd: soft, nontender Ext: no edema Laboratory Results - last 24 hr 09/18/17 09/18/17 08:15 08:15 WBC 8.3 RBC 3.99 Hgb 12.0 Hct 36.3 MCV 91.0 MCH 30.0 MCHC 33.0 RDW 16.6 H Plt Count 250 MPV 8.8 Absolute Neuts (auto) 6.2 Neutrophils % 74.9 Lymphocytes % 11.5 Monocytes % 10.7 H Eosinophils % 2.1 Basophils % 0.8 Nucleated RBC % 0 Sodium 140 Potassium 4.9 Chloride 96 L Carbon Dioxide 40 H Anion Gap 4 L BUN 24 H Creatinine 0.8 Creat Clearance w eGFR > 60 Random Glucose 113 H Calcium 8.8 Phosphorus 4.1 Magnesium 2.2 A/P Acute on Chronic Hypoxic Respiratory Failure Progressive Small Cell Ca with endobronchial involvement Right Pleural Effusion s/p R VATS/pleur-x placement r/o Pneumonia COPD Paroxysmal Atrial Fibrillation s/p PPM PAD - Pain control: add Fentanyl patch - monitor chest tube drainage - O2 to keep SpO2 >90% - inhaled bronchodilators - rate controlled - AC - completed empiric antibiotics - Patient has decided for Chemotherapy - CXR Dr Palomino
[2017-09-18] MEDS ORDERED: VORICONAZOLE 200 MG/20 ML VIAL (RESTRICTED TO ID) IVPB SCH (10:00)
[2017-09-18] MEDS ORDERED: VALSARTAN 160 MG TABLET (UD) PO SCH (10:00)
[2017-09-18] MEDS: DEXTROSE 5% IVPB SCH ×2 (11:00→21:53)
[2017-09-18] MEDS: VORICONAZOLE IVPB SCH ×2 (11:00→21:53)
[2017-09-18] MEDS: WATER IVPB SCH ×2 (11:00→21:53)
--- NOTE | 2017-09-18 11:18 | PN ---
Progress Note (short form) - Note Progress Note: s: no cp, palps, edema, dizzy sob Current Medications Generic Name Dose Route Start Last Admin Trade Name Freq PRN Reason Stop Dose Admin Acetaminophen 650 mg 09/18/17 00:15 09/18/17 09:16 Tylenol - PO 650 mg Q4H PRN Administration FEVER Apixaban 2.5 mg 09/18/17 10:00 Eliquis - PO BID [facility] Ascorbic Acid 500 mg 09/18/17 10:00 Vitamin C - PO DAILY [facility] Cholecalciferol 5,000 unit 09/18/17 10:00 Vitamin D3 - PO DAILY [facility] Cyanocobalamin 1,000 mcg 09/18/17 10:00 Vitamin B12 - PO DAILY [facility] Digoxin 0.125 mg 09/18/17 10:00 Lanoxin - PO DAILY [facility] Diltiazem HCl 180 mg 09/18/17 10:00 09/18/17 09:03 Cardizem Cd - PO Not Given DAILY [facility] Fentanyl 1 patch 09/18/17 09:30 Duragesic 12mcg Patch - TD 09/25/17 09:27 Q72H [facility] Voriconazole 300 mg/ Dextrose 130 mls @ 130 mls/hr 09/18/17 10:00 IVPB 09/19/17 09:59 BID [facility] Magnesium Oxide 400 mg 09/18/17 10:00 Mag-Ox - PO BID [facility] Metoprolol Succinate 25 mg 09/18/17 10:00 Toprol Xl - PO DAILY [facility] Miscellaneous 1 each 09/18/17 09:27 Duragesic Patch Waste [facility] PRN PRN PAIN Oxycodone HCl 5 mg 09/18/17 00:15 09/18/17 09:17 Roxicodone - PO 5 mg Q4H PRN Administration PAIN LEVEL 7 - 10 Pyridoxine HCl 50 mg 09/18/17 10:00 Vitamin B6 - PO DAILY [facility] Sertraline HCl 25 mg 09/18/17 10:00 Zoloft - PO DAILY [facility] Sucralfate 1 gm 09/18/17 10:00 Carafate Oral Suspension - PO DAILY [facility] Valsartan 160 mg 09/18/17 10:00 Diovan - PO DAILY [facility] - Objective Vital Signs: Vital Signs Period Temp Pulse Resp BP Sys/Wahl Pulse Ox Last 24 Hr 97.8 F-98.6 F 62-84 16-22 110-147/48-73 91 Constitutional: Yes: Well Nourished, No Distress, Calm Cardiovascular: Yes: Regular Rate and Rhythm, S1, S2. No: JVD, Gallop, Murmur Respiratory: Yes: Regular, CTA Bilaterally (absent bases). No: Accessory Muscle Use, Rales, Wheezes Extremities: No: Cold Edema: No Neurological: Yes: Alert, Oriented Psychiatric: No: Agitated no jaundice diaphoresis CBC, BMP 09/18/17 08:15 09/18/17 08:15 Assessment/Plan MIBI 05/21 ([facility]): no STs, minimal apical isch vs variable brst (small LV/hyper EF) Echo 05/2016 ([facility]): tds; nl lv, nl rv size, mild , mild mr, mild-mod tr; rvsp 40-50, mod ao root dil EKG 09/08/17 V paced 81 f hx afib, htn, hld, tachy/maricruz syndrome s/p ppm, copd, pad s/p rle bypass, possible cad (equivocal MIBI), chronic sob/briones/palps likely related to anxiety, esophageal ca s/p laser treatment, neuroendocrine small cell carcinoma of lung p /w shortness of breath now s/p VATS and pleur-x catheter placement with hypotension Htn: -controlled on current meds. pt now on voriconazole which can increase effect of dilt, possibly lower bp. Will continue current dilt for rate control but will decrease diovan for now. s/p PPM - last interrogated 07/2017 stable function Afib - dig, dilt, eliquis at home, continue - rates stable CAD - hx equivocal stress - on arb, statin at home, continue h/o HFPEF - euvolemic, urinary incontinence, holding lasix for now - resume lasix at 20 qod on hosp discharge. PAD s/p bypass - continue ARB, statin lung cancer/malign effusion s/p VATS - per pulm, onc, thoracic surgery
[2017-09-18] MEDS: fentaNYL 12mcg/hr PATCH.TD72 TD SCH (11:25)
[2017-09-18] MEDS: SUCRALFATE 1 GM/10 ML UNIT DOSE CUPS PO SCH (11:28)
[2017-09-18] MEDS: VALSARTAN 160 MG TABLET (UD) PO SCH (11:29)
[2017-09-18] MEDS: CHOLECALCIFEROL (VITAMIN D3) 1,000 UNIT TABLET (FP) PO SCH (11:29)
[2017-09-18] MEDS: CYANOCOBALAMIN 1,000 MCG TABLET (FP) PO SCH (11:29)
[2017-09-18] MEDS: ASCORBIC ACID 500 MG TABLET (FP) PO SCH (11:30)
[2017-09-18] MEDS: MAGNESIUM OXIDE 400 MG TABLET (FP) PO SCH ×2 (11:30→21:53)
[2017-09-18] MEDS: DIGOXIN 0.125 MG TABLET (FP) PO SCH (11:30)
[2017-09-18] MEDS: metoPROLOL SUCCINATE 25 MG TAB.SR.24H (FP) PO SCH (11:31)
[2017-09-18] MEDS: SERTRALINE HCL 25 MG TABLET (FP) PO SCH (11:31)
[2017-09-18] MEDS: APIXABAN 2.5 MG TABLET PO SCH ×2 (11:35→21:53)
[2017-09-18] MEDS: PYRIDOXINE HCL (B-6) 50 MG TABLET (FP) PO SCH (11:35)
--- NOTE | 2017-09-18 12:27 | PN ---
Progress Note, Physician Chief Complaint: Ms Moncada says she feels good today. Having pain at site of pleurx catheter but controlled. No cp, sob, n/v. - Current Medication List Current Medications: Active Medications Acetaminophen (Tylenol -) 650 mg PO Q4H PRN PRN Reason: FEVER Last Admin: 09/18/17 09:16 Dose: 650 mg Apixaban (Eliquis -) 2.5 mg PO BID [facility] Last Admin: 09/18/17 11:35 Dose: 2.5 mg Ascorbic Acid (Vitamin C -) 500 mg PO DAILY [facility] Last Admin: 09/18/17 11:30 Dose: 500 mg Cholecalciferol (Vitamin D3 -) 5,000 unit PO DAILY [facility] Last Admin: 09/18/17 11:29 Dose: 5,000 unit Cyanocobalamin (Vitamin B12 -) 1,000 mcg PO DAILY [facility] Last Admin: 09/18/17 11:29 Dose: 1,000 mcg Digoxin (Lanoxin -) 0.125 mg PO DAILY [facility] Last Admin: 09/18/17 11:30 Dose: 0.125 mg Diltiazem HCl (Cardizem Cd -) 180 mg PO DAILY [facility] Last Admin: 09/18/17 09:03 Dose: Not Given Fentanyl (Duragesic 12mcg Patch -) 1 patch TD Q72H [facility] Stop: 09/25/17 09:27 Last Admin: 09/18/17 11:25 Dose: 1 patch Voriconazole 300 mg/ Dextrose 130 mls @ 130 mls/hr IVPB BID [facility] Stop: 09/19/17 09:59 Magnesium Oxide (Mag-Ox -) 400 mg PO BID [facility] Last Admin: 09/18/17 11:30 Dose: 400 mg Metoprolol Succinate (Toprol Xl -) 25 mg PO DAILY [facility] Last Admin: 09/18/17 11:31 Dose: 25 mg Miscellaneous (Duragesic Patch Waste) 1 each [facility] PRN PRN PRN Reason: PAIN Oxycodone HCl (Roxicodone -) 5 mg PO Q4H PRN PRN Reason: PAIN LEVEL 7 - 10 Last Admin: 09/18/17 09:17 Dose: 5 mg Pyridoxine HCl (Vitamin B6 -) 50 mg PO DAILY [facility] Last Admin: 09/18/17 11:35 Dose: 50 mg Sertraline HCl (Zoloft -) 25 mg PO DAILY [facility] Last Admin: 09/18/17 11:31 Dose: 25 mg Sucralfate (Carafate Oral Suspension -) 1 gm PO DAILY [facility] Last Admin: 09/18/17 11:28 Dose: 1 gm Valsartan (Diovan -) 160 mg PO DAILY [facility] Last Admin: 09/18/17 11:29 Dose: 160 mg - Objective Vital Signs: Vital Signs Temperature 36.5 C 09/18/17 10:00 Pulse Rate 87 09/18/17 11:30 Respiratory Rate 20 09/18/17 10:00 Blood Pressure 144/64 09/18/17 10:00 O2 Sat by Pulse Oximetry (%) 91 L 09/17/17 21:00 Constitutional: Yes: No Distress, Calm, Thin Cardiovascular: Yes: Pulse Irregular. No: Tachycardia, Gallop, Murmur, Rub Respiratory: Yes: Regular, On Nasal O2, Rhonchi. No: CTA Bilaterally, Rales, Wheezes Gastrointestinal: Yes: Normal Bowel Sounds, Soft. No: Distention, Tenderness Extremities: Yes: WNL Edema: No Labs: CBC, BMP 09/18/17 08:15 09/18/17 08:15 INR, PTT INR 1.34 (0.83-1.09) 09/08/17 05:40 Problem List - Problems (1) Acute and chronic respiratory failure with hypoxia Code(s): J96.21 - ACUTE AND CHRONIC RESPIRATORY FAILURE WITH HYPOXIA (2) Pleural effusion Code(s): J90 - PLEURAL EFFUSION, NOT ELSEWHERE CLASSIFIED (3) COPD exacerbation Code(s): J44.1 - CHRONIC OBSTRUCTIVE PULMONARY DISEASE W (ACUTE) EXACERBATION (4) Lung cancer Code(s): C34.90 - MALIGNANT NEOPLASM OF UNSP PART OF UNSP BRONCHUS OR LUNG Qualifiers: Laterality: right Lung location: unspecified part of lung Qualified Code( s): C34.91 - Malignant neoplasm of unspecified part of right bronchus or lung (5) Atrial fibrillation Code(s): I48.91 - UNSPECIFIED ATRIAL FIBRILLATION Qualifiers: Atrial fibrillation type: chronic Qualified Code(s): I48.2 - Chronic atrial fibrillation (6) CHF (congestive heart failure) Code(s): I50.9 - HEART FAILURE, UNSPECIFIED (7) Hyperlipidemia Code(s): E78.5 - HYPERLIPIDEMIA, UNSPECIFIED (8) Hypertension Code(s): I10 - ESSENTIAL (PRIMARY) HYPERTENSION (9) Pacemaker Code(s): Z95.0 - PRESENCE OF CARDIAC PACEMAKER (10) Pain Code(s): R52 - PAIN, UNSPECIFIED Assessment/Plan (1) Acute and chronic respiratory failure with hypoxia Assessment/Plan: -at baseline Code(s): J96.21 - ACUTE AND CHRONIC RESPIRATORY FAILURE WITH HYPOXIA (2) Pleural effusion Assessment/Plan: -pleurx catheter placed Code(s): J90 - PLEURAL EFFUSION, NOT ELSEWHERE CLASSIFIED (3) COPD exacerbation Assessment/Plan: -stable -continue oxygen support -continue inhalers Code(s): J44.1 - CHRONIC OBSTRUCTIVE PULMONARY DISEASE W (ACUTE) EXACERBATION (4) Lung cancer Assessment/Plan: -plan to start chemotherapy Thursday -case d/w Dr Van -slides reviewed and showing fungal infiltration -will give IV voriconazole today and oral over the weekend -voriconazole with many interactions including diltiazem Code(s): C34.90 - MALIGNANT NEOPLASM OF UNSP PART OF UNSP BRONCHUS OR LUNG Qualifiers: Laterality: right Lung location: unspecified part of lung Qualified Code( s): C34.91 - Malignant neoplasm of unspecified part of right bronchus or lung (5) Atrial fibrillation Assessment/Plan: -controlled -continue eliquis -case d/w Dr Diez, concern about blood pressure over HR as patient has pacemaker so will not become bradycardic -decrease valsartan Code(s): I48.91 - UNSPECIFIED ATRIAL FIBRILLATION Qualifiers: Atrial fibrillation type: chronic Qualified Code(s): I48.2 - Chronic atrial fibrillation (6) CHF (congestive heart failure) Assessment/Plan: -continue lasix Code(s): I50.9 - HEART FAILURE, UNSPECIFIED Qualifiers: Qualified Code(s): I50.9 - Heart failure, unspecified (7) Hyperlipidemia Assessment/Plan: -considering overall prognosis, will stop statin Code(s): E78.5 - HYPERLIPIDEMIA, UNSPECIFIED (8) Hypertension Assessment/Plan: -valsartan decreased per cardiology -monitor Code(s): I10 - ESSENTIAL (PRIMARY) HYPERTENSION (9) Pacemaker Code(s): Z95.0 - PRESENCE OF CARDIAC PACEMAKER (10) Pain -controlled today -duragesic patch added
[2017-09-19] MEDS: oxyCODONE HCL 5 MG TABLET PO PRN (02:24)
[2017-09-19] MEDS: ACETAMINOPHEN 325 MG TABLET (FP) PO PRN (06:22)
[2017-09-19 08:00] LABS: EOS % 1.3 % (0-4.5); HEMATOCRIT 34.6 % (32.4-45.2); HEMOGLOBIN 11.5 GM/dL (10.7-15.3); LYMPH % 10.8 % (8-40); MCH 30.2 pg (25.7-33.7); MCHC 33.4 g/dl (32.0-36.0); MEAN CELL VOLUME 90.5 fl (80-96); MEAN PLT VOLUME 9.4 fl (7.5-11.1); MONO % 10.2 % (3.8-10.2); NEUT % 76.7 % (42.8-82.8); PLATELET COUNT 241 K/MM3 (134-434); RBC 3.82 M/mm3 (3.60-5.2); RDW 16.4 % (11.6-15.6); WHITE BLOOD COUNT 9.1 K/mm3 (4.0-10.0)
[2017-09-19 08:04] LABS: CHLORIDE 93 mmol/L (98-107); POTASSIUM 4.7 mmol/L (3.5-5.1); SODIUM 136 mmol/L (136-145)
[2017-09-19 08:11] LABS: ALBUMIN 2.5 g/dl (3.4-5.0); ALK PHOS 76 U/L (45-117); ANION GAP 5 (8-16); BILIRUBIN,TOTAL 0.2 mg/dL (0.2-1.0); BLOOD UREA NITROGEN 17 mg/dL (7-18); CALCIUM 8.4 mg/dL (8.5-10.1); CO2 38 mmol/L (21-32); CREATININE 0.7 mg/dL (0.55-1.02); GLUCOSE,RANDOM 90 mg/dL (74-106); MAGNESIUM 2.1 mg/dL (1.8-2.4); SGOT/AST 39 U/L (15-37); SGPT/ALT 32 U/L (12-78); TOT PROT 5.3 g/dl (6.4-8.2)
[2017-09-19] MEDS: CHOLECALCIFEROL (VITAMIN D3) 1,000 UNIT TABLET (FP) PO SCH (09:57)
[2017-09-19] MEDS: SUCRALFATE 1 GM/10 ML UNIT DOSE CUPS PO SCH (09:57)
[2017-09-19] MEDS: MAGNESIUM OXIDE 400 MG TABLET (FP) PO SCH ×2 (09:57→21:30)
[2017-09-19] MEDS: VALSARTAN 160 MG TABLET (UD) PO SCH (09:58)
[2017-09-19] MEDS: ASCORBIC ACID 500 MG TABLET (FP) PO SCH (09:58)
[2017-09-19] MEDS: CYANOCOBALAMIN 1,000 MCG TABLET (FP) PO SCH (09:58)
[2017-09-19] MEDS: SERTRALINE HCL 25 MG TABLET (FP) PO SCH (09:58)
[2017-09-19] MEDS: metoPROLOL SUCCINATE 25 MG TAB.SR.24H (FP) PO SCH (09:59)
[2017-09-19] MEDS: DIGOXIN 0.125 MG TABLET (FP) PO SCH (09:59)
[2017-09-19] MEDS ORDERED: PT OWN MED DRAWER 7, Y5N ONE ×2 (10:02→20:40)
--- NOTE | 2017-09-19 10:03 | PN ---
Progress Note (short form) - Note Progress Note: Pain is much better today. Much more comfortable with only minimal discomfort at the PleureX site. No drainage was recorded (looks like 150cc). Intake & Output 09/16/17 09/17/17 09/18/17 09/19/17 23:59 23:59 23:59 23:59 Intake Total 980 1250 680 120 Output Total 360 250 200 Balance 620 1000 480 120 Last Vital Signs Temp Pulse Resp BP Pulse Ox 98.4 F 90 20 117/55 94 L 09/19/17 05:00 09/19/17 09:59 09/19/17 05:00 09/19/17 05:00 09/18/17 21:46 Active Medications Acetaminophen (Tylenol -) 650 mg PO Q4H PRN PRN Reason: FEVER Last Admin: 09/19/17 06:22 Dose: 650 mg Apixaban (Eliquis -) 2.5 mg PO BID [facility] Last Admin: 09/18/17 21:53 Dose: 2.5 mg Ascorbic Acid (Vitamin C -) 500 mg PO DAILY [facility] Last Admin: 09/19/17 09:58 Dose: 500 mg Cholecalciferol (Vitamin D3 -) 5,000 unit PO DAILY [facility] Last Admin: 09/19/17 09:57 Dose: 5,000 unit Cyanocobalamin (Vitamin B12 -) 1,000 mcg PO DAILY [facility] Last Admin: 09/19/17 09:58 Dose: 1,000 mcg Digoxin (Lanoxin -) 0.125 mg PO DAILY [facility] Last Admin: 09/19/17 09:59 Dose: 0.125 mg Diltiazem HCl (Cardizem Cd -) 180 mg PO DAILY [facility] Last Admin: 09/19/17 09:58 Dose: 180 mg Fentanyl (Duragesic 12mcg Patch -) 1 patch TD Q72H [facility] Stop: 09/25/17 09:27 Last Admin: 09/18/17 11:25 Dose: 1 patch Magnesium Oxide (Mag-Ox -) 400 mg PO BID [facility] Last Admin: 09/19/17 09:57 Dose: 400 mg Metoprolol Succinate (Toprol Xl -) 25 mg PO DAILY [facility] Last Admin: 09/19/17 09:59 Dose: 25 mg Miscellaneous (Duragesic Patch Waste) 1 each [facility] PRN PRN PRN Reason: PAIN Oxycodone HCl (Roxicodone -) 5 mg PO Q4H PRN PRN Reason: PAIN LEVEL 7 - 10 Last Admin: 09/19/17 02:24 Dose: 5 mg Pyridoxine HCl (Vitamin B6 -) 50 mg PO DAILY [facility] Last Admin: 09/18/17 11:35 Dose: 50 mg Sertraline HCl (Zoloft -) 25 mg PO DAILY [facility] Last Admin: 09/19/17 09:58 Dose: 25 mg Sucralfate (Carafate Oral Suspension -) 1 gm PO DAILY [facility] Last Admin: 09/19/17 09:57 Dose: 1 gm Valsartan (Diovan -) 160 mg PO DAILY [facility] Last Admin: 09/19/17 09:58 Dose: 160 mg Gen: NAD, more comfortable Heart: RRR Lung: decreased breath sounds right base Abd: soft, nontender Ext: no edema Laboratory Results - last 24 hr 09/19/17 09/19/17 06:00 06:00 WBC 9.1 RBC 3.82 Hgb 11.5 Hct 34.6 MCV 90.5 MCH 30.2 MCHC 33.4 RDW 16.4 H Plt Count 241 MPV 9.4 Absolute Neuts (auto) 7.0 Neutrophils % 76.7 Lymphocytes % 10.8 Monocytes % 10.2 Eosinophils % 1.3 Basophils % 1.0 Nucleated RBC % 0 Sodium 136 Potassium 4.7 Chloride 93 L Carbon Dioxide 38 H Anion Gap 5 L BUN 17 Creatinine 0.7 Creat Clearance w eGFR > 60 Random Glucose 90 Calcium 8.4 L Magnesium 2.1 Total Bilirubin 0.2 AST 39 H ALT 32 Alkaline Phosphatase 76 Total Protein 5.3 L Albumin 2.5 L A/P Acute on Chronic Hypoxic Respiratory Failure Progressive Small Cell Ca with endobronchial involvement Right Pleural Effusion s/p R VATS/pleur-x placement r/o Pneumonia COPD Paroxysmal Atrial Fibrillation s/p PPM PAD - Pain control: Fentanyl patch/PRN Oxycodone - monitor chest tube drainage - O2 to keep SpO2 >90% - inhaled bronchodilators - rate controlled - AC - completed empiric antibiotics - Patient has decided for Chemotherapy Dr Palomino
--- NOTE | 2017-09-19 10:10 | PN ---
Progress Note, Physician History of Present Illness: Patient notes that she feels OK today. She found a comfortable position last night and slept through the night. Breathing feeling OK. - Current Medication List Current Medications: Active Medications Acetaminophen (Tylenol -) 650 mg PO Q4H PRN PRN Reason: FEVER Last Admin: 09/19/17 06:22 Dose: 650 mg Apixaban (Eliquis -) 2.5 mg PO BID [facility] Last Admin: 09/18/17 21:53 Dose: 2.5 mg Ascorbic Acid (Vitamin C -) 500 mg PO DAILY [facility] Last Admin: 09/19/17 09:58 Dose: 500 mg Cholecalciferol (Vitamin D3 -) 5,000 unit PO DAILY [facility] Last Admin: 09/19/17 09:57 Dose: 5,000 unit Cyanocobalamin (Vitamin B12 -) 1,000 mcg PO DAILY [facility] Last Admin: 09/19/17 09:58 Dose: 1,000 mcg Digoxin (Lanoxin -) 0.125 mg PO DAILY [facility] Last Admin: 09/19/17 09:59 Dose: 0.125 mg Diltiazem HCl (Cardizem Cd -) 180 mg PO DAILY [facility] Last Admin: 09/19/17 09:58 Dose: 180 mg Fentanyl (Duragesic 12mcg Patch -) 1 patch TD Q72H [facility] Stop: 09/25/17 09:27 Last Admin: 09/18/17 11:25 Dose: 1 patch Magnesium Oxide (Mag-Ox -) 400 mg PO BID [facility] Last Admin: 09/19/17 09:57 Dose: 400 mg Metoprolol Succinate (Toprol Xl -) 25 mg PO DAILY [facility] Last Admin: 09/19/17 09:59 Dose: 25 mg Miscellaneous (Duragesic Patch Waste) 1 each [facility] PRN PRN PRN Reason: PAIN Oxycodone HCl (Roxicodone -) 5 mg PO Q4H PRN PRN Reason: PAIN LEVEL 7 - 10 Last Admin: 09/19/17 02:24 Dose: 5 mg Pyridoxine HCl (Vitamin B6 -) 50 mg PO DAILY [facility] Last Admin: 09/18/17 11:35 Dose: 50 mg Sertraline HCl (Zoloft -) 25 mg PO DAILY [facility] Last Admin: 09/19/17 09:58 Dose: 25 mg Sucralfate (Carafate Oral Suspension -) 1 gm PO DAILY [facility] Last Admin: 09/19/17 09:57 Dose: 1 gm Valsartan (Diovan -) 160 mg PO DAILY [facility] Last Admin: 09/19/17 09:58 Dose: 160 mg - Objective Vital Signs: Vital Signs Temperature 98.4 F 09/19/17 05:00 Pulse Rate 90 09/19/17 09:59 Respiratory Rate 20 09/19/17 05:00 Blood Pressure 117/55 09/19/17 05:00 O2 Sat by Pulse Oximetry (%) 94 L 09/18/17 21:46 Constitutional: Yes: No Distress, Calm Cardiovascular: Yes: Regular Rate and Rhythm, S1, S2. No: Murmur Respiratory: Yes: Regular, Diminished (right base), Other (right sided chest tube) Gastrointestinal: Yes: Normal Bowel Sounds, Soft. 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
--- NOTE | 2017-09-19 10:20 | PN ---
Progress Note (short form) - Note Progress Note: s: no cp, palps, edema, dizzy sob Current Medications Generic Name Dose Route Start Last Admin Trade Name Freq PRN Reason Stop Dose Admin Acetaminophen 650 mg 09/18/17 00:15 09/19/17 06:22 Tylenol - PO 650 mg Q4H PRN Administration FEVER Apixaban 2.5 mg 09/18/17 10:00 09/18/17 21:53 Eliquis - PO 2.5 mg BID [facility] Administration Ascorbic Acid 500 mg 09/18/17 10:00 09/19/17 09:58 Vitamin C - PO 500 mg DAILY [facility] Administration Cholecalciferol 5,000 unit 09/18/17 10:00 09/19/17 09:57 Vitamin D3 - PO 5,000 unit DAILY [facility] Administration Cyanocobalamin 1,000 mcg 09/18/17 10:00 09/19/17 09:58 Vitamin B12 - PO 1,000 mcg DAILY [facility] Administration Digoxin 0.125 mg 09/18/17 10:00 09/19/17 09:59 Lanoxin - PO 0.125 mg DAILY [facility] Administration Diltiazem HCl 180 mg 09/18/17 10:00 09/19/17 09:58 Cardizem Cd - PO 180 mg DAILY [facility] Administration Fentanyl 1 patch 09/18/17 09:30 09/18/17 11:25 Duragesic 12mcg Patch - TD 09/25/17 09:27 1 patch Q72H [facility] Administration Magnesium Oxide 400 mg 09/18/17 10:00 09/19/17 09:57 Mag-Ox - PO 400 mg BID [facility] Administration Metoprolol Succinate 25 mg 09/18/17 10:00 09/19/17 09:59 Toprol Xl - PO 25 mg DAILY [facility] Administration Miscellaneous 1 each 09/18/17 09:27 Duragesic Patch Waste MC PRN PRN PAIN Oxycodone HCl 5 mg 09/18/17 00:15 09/19/17 02:24 Roxicodone - PO 5 mg Q4H PRN Administration PAIN LEVEL 7 - 10 Pyridoxine HCl 50 mg 09/18/17 10:00 09/18/17 11:35 Vitamin B6 - PO 50 mg DAILY [facility] Administration Sertraline HCl 25 mg 09/18/17 10:00 09/19/17 09:58 Zoloft - PO 25 mg DAILY [facility] Administration Sucralfate 1 gm 09/18/17 10:00 09/19/17 09:57 Carafate Oral Suspension - PO 1 gm DAILY [facility] Administration Valsartan 160 mg 09/18/17 10:00 09/19/17 09:58 Diovan - PO 160 mg DAILY [facility] Administration - Objective Vital Signs: Vital Signs Period Temp Pulse Resp BP Sys/Wahl Pulse Ox Last 24 Hr 98.2 F-98.7 F 64-90 18-20 103-149/45-73 94-94 Constitutional: Yes: Well Nourished, No Distress, Calm Cardiovascular: Yes: Regular Rate and Rhythm, S1, S2. No: JVD, Gallop, Murmur Respiratory: Yes: Regular, CTA Bilaterally (absent bases). No: Accessory Muscle Use, Rales, Wheezes Extremities: No: Cold Edema: No Neurological: Yes: Alert, Oriented Psychiatric: No: Agitated no jaundice diaphoresis CBC, BMP 09/19/17 06:00 09/19/17 06:00 MIBI 05/21 (dobut): no STs, minimal apical isch vs variable brst (small LV/hyper EF) Echo 05/2016 (): tds; nl lv, nl rv size, mild , mild mr, mild-mod tr; rvsp 40-50, mod ao root dil EKG 09/08/17 V paced Assessment/Plan 81 f hx afib, htn, hld, tachy/maricruz syndrome s/p ppm, copd, pad s/p rle bypass, possible cad (equivocal MIBI), chronic sob/briones/palps likely related to anxiety, esophageal ca s/p laser treatment, neuroendocrine small cell carcinoma of lung p /w shortness of breath now s/p VATS and pleur-x catheter placement with hypotension Htn: -controlled on current meds. pt now on voriconazole which can increase effect of dilt, possibly lower bp. Will continue current dilt for rate control but have decreased diovan s/p PPM - last interrogated 07/2017 stable function Afib - dig, dilt, eliquis at home, continue - rates stable CAD - hx equivocal stress - on arb, statin at home, continue h/o HFPEF - euvolemic, urinary incontinence, holding lasix for now - resume lasix at 20 qod on hosp discharge. PAD s/p bypass - continue ARB, statin lung cancer/malign effusion s/p VATS - per pulm, onc, thoracic surgery
[2017-09-19] MEDS: APIXABAN 2.5 MG TABLET PO SCH ×2 (10:59→21:30)
[2017-09-19] MEDS: PYRIDOXINE HCL (B-6) 50 MG TABLET (FP) PO SCH (10:59)
--- NOTE | 2017-09-19 12:11 | PN ---
Progress Note (short form) - Note Progress Note: unchanged Vital Signs Period Temp Pulse Resp BP Sys/Wahl Pulse Ox Last 24 Hr 98.2 F-98.7 F 64-90 18-20 103-149/45-73 94-94 cor-rrr lungs decreased bs at bases +chest tube abd soft,nt ext no edema CBC, BMP 09/19/17 06:00 09/19/17 06:00 Microbiology 09/10/17 16:00 Pleural Fluid AFB Smear Concentration - Final 09/10/17 16:00 Pleural Fluid Mycobacterial Culture - Preliminary 09/08/17 05:40 Blood - Peripheral Venous Blood Culture - Final NO GROWTH AFTER 5 DAYS INCUBATION 09/08/17 05:40 Blood - Peripheral Venous Blood Culture - Final NO GROWTH AFTER 5 DAYS INCUBATION 09/09/17 12:24 Pleural Fluid Gram Stain - Final 09/09/17 12:24 Pleural Fluid Body Fluid Culture - Final NO GROWTH OF AEROBIC ORGANISMS AFTER 48 HOURS INCUBATION 09/09/17 12:24 Pleural Fluid Anaerobic Culture - Final NO ANAEROBES WERE ISOLATED 09/10/17 16:00 Pleural Fluid OANH Preparation - Preliminary 09/10/17 16:00 Pleural Fluid Fungal Culture - Preliminary 09/08/17 23:00 Urine - Urine Clean Catch Urine Culture - Final a/p exophilia - fungal lung infection- small cell neuroendocrine lung cancer switch voriconazole to po for chemo on Thursday Problem List - Problems (1) SOB (shortness of breath) Code(s): R06.02 - SHORTNESS OF BREATH (2) Pleural effusion Code(s): J90 - PLEURAL EFFUSION, NOT ELSEWHERE CLASSIFIED (3) Lung cancer Code(s): C34.90 - MALIGNANT NEOPLASM OF UNSP PART OF UNSP BRONCHUS OR LUNG Qualifiers: Laterality: right Lung location: unspecified part of lung Qualified Code( s): C34.91 - Malignant neoplasm of unspecified part of right bronchus or lung
--- NOTE | 2017-09-19 13:53 | PN ---
Progress Note (short form) - Note Progress Note: ONCOLOGY FOLLOW UP NOTE : Patient seen and examined She is eating lunch and feels she is excellent Vital Signs Period Temp Pulse Resp BP Sys/Wahl Pulse Ox Last 24 Hr 98.2 F-98.7 F 64-90 18-20 103-149/45-73 94-94 Cor -atrial fib Lungs: diminished breath sounds scattered rhonchi Abd: Soft, Normal bowel sounds, No organomegaly Ext:No significant edema Skin: No rashes, Integument intact CBC, BMP 09/19/17 06:00 09/19/17 06:00 Active Medications Generic Name Dose Route Start Last Admin Trade Name Freq PRN Reason Stop Dose Admin Acetaminophen 650 mg 09/18/17 00:15 09/19/17 06:22 Tylenol - PO 650 mg Q4H PRN Administration FEVER Apixaban 2.5 mg 09/18/17 10:00 09/19/17 10:59 Eliquis - PO 2.5 mg BID [facility] Administration Ascorbic Acid 500 mg 09/18/17 10:00 09/19/17 09:58 Vitamin C - PO 500 mg DAILY [facility] Administration Cholecalciferol 5,000 unit 09/18/17 10:00 09/19/17 09:57 Vitamin D3 - PO 5,000 unit DAILY [facility] Administration Cyanocobalamin 1,000 mcg 09/18/17 10:00 09/19/17 09:58 Vitamin B12 - PO 1,000 mcg DAILY [facility] Administration Digoxin 0.125 mg 09/18/17 10:00 09/19/17 09:59 Lanoxin - PO 0.125 mg DAILY [facility] Administration Diltiazem HCl 180 mg 09/18/17 10:00 09/19/17 09:58 Cardizem Cd - PO 180 mg DAILY [facility] Administration Fentanyl 1 patch 09/18/17 09:30 09/18/17 11:25 Duragesic 12mcg Patch - TD 09/25/17 09:27 1 patch Q72H [facility] Administration Magnesium Oxide 400 mg 09/18/17 10:00 09/19/17 09:57 Mag-Ox - PO 400 mg BID [facility] Administration Metoprolol Succinate 25 mg 09/18/17 10:00 09/19/17 09:59 Toprol Xl - PO 25 mg DAILY [facility] Administration Miscellaneous 1 each 09/18/17 09:27 Duragesic Patch Waste MC PRN PRN PAIN Oxycodone HCl 5 mg 09/18/17 00:15 09/19/17 02:24 Roxicodone - PO 5 mg Q4H PRN Administration PAIN LEVEL 7 - 10 Pyridoxine HCl 50 mg 09/18/17 10:00 09/19/17 10:59 Vitamin B6 - PO 50 mg DAILY [facility] Administration Sertraline HCl 25 mg 09/18/17 10:00 09/19/17 09:58 Zoloft - PO 25 mg DAILY [facility] Administration Sucralfate 1 gm 09/18/17 10:00 09/19/17 09:57 Carafate Oral Suspension - PO 1 gm DAILY [facility] Administration Valsartan 160 mg 09/18/17 10:00 09/19/17 09:58 Diovan - PO 160 mg DAILY [facility] Administration Voriconazole 200 mg 09/19/17 18:30 Vfend (Restricted To Id) PO BIDPC [facility] Impression: High grade Neuroendocrine tumor Pleural effusion - s/p VATS and pleurex catheter Atrial fib on eliquis Fungal infection on bronchoscopy - Anti -fungal therapy Plan will monitor status More debilitated , dyspneic, and will decide merits or lack thereof of treatment over next several days.
[2017-09-19] MEDS: VORICONAZOLE 200 MG TABLET (RESTRICTED TO ID) PO SCH (18:07)
[2017-09-20] MEDS: oxyCODONE HCL 5 MG TABLET PO PRN ×2 (06:22→21:39)
[2017-09-20 06:57] LABS: BASO % 0.4 % (0-2.0); EOS % 0.6 % (0-4.5); HEMATOCRIT 34.6 % (32.4-45.2); HEMOGLOBIN 11.5 GM/dL (10.7-15.3); LYMPH % 7.9 % (8-40); MCH 30.3 pg (25.7-33.7); MCHC 33.2 g/dl (32.0-36.0); MEAN CELL VOLUME 91.5 fl (80-96); MONO % 8.5 % (3.8-10.2); NEUT % 82.6 % (42.8-82.8); PLATELET COUNT 267 K/MM3 (134-434); RBC 3.79 M/mm3 (3.60-5.2); RDW 16.2 % (11.6-15.6); WHITE BLOOD COUNT 10.8 K/mm3 (4.0-10.0)
[2017-09-20 07:43] LABS: CHLORIDE 91 mmol/L (98-107); POTASSIUM 5.7 mmol/L (3.5-5.1); SODIUM 135 mmol/L (136-145)
[2017-09-20 07:50] LABS: ALBUMIN 2.6 g/dl (3.4-5.0); ALK PHOS 77 U/L (45-117); ANION GAP 5 (8-16); BILIRUBIN,TOTAL 0.3 mg/dL (0.2-1.0); BLOOD UREA NITROGEN 17 mg/dL (7-18); CALCIUM 8.9 mg/dL (8.5-10.1); CO2 39 mmol/L (21-32); CREATININE 0.8 mg/dL (0.55-1.02); GLUCOSE,RANDOM 90 mg/dL (74-106); SGOT/AST 34 U/L (15-37); SGPT/ALT 27 U/L (12-78); TOT PROT 5.3 g/dl (6.4-8.2)
--- NOTE | 2017-09-20 09:11 | PN ---
Progress Note (short form) - Note Progress Note: Clinically looks better. Pain continues to improve. CT drainage: 150cc. Intake & Output 09/17/17 09/18/17 09/19/17 09/20/17 23:59 23:59 23:59 23:59 Intake Total 1250 680 690 100 Output Total 250 200 50 Balance 1000 480 640 100 Last Vital Signs Temp Pulse Resp BP Pulse Ox 98.3 F 81 20 128/57 96 09/20/17 05:27 09/20/17 05:27 09/20/17 05:27 09/20/17 05:27 09/19/17 21:00 Active Medications Acetaminophen (Tylenol -) 650 mg PO Q4H PRN PRN Reason: FEVER Last Admin: 09/19/17 06:22 Dose: 650 mg Apixaban (Eliquis -) 2.5 mg PO BID [facility] Last Admin: 09/19/17 21:30 Dose: 2.5 mg Ascorbic Acid (Vitamin C -) 500 mg PO DAILY [facility] Last Admin: 09/19/17 09:58 Dose: 500 mg Cholecalciferol (Vitamin D3 -) 5,000 unit PO DAILY [facility] Last Admin: 09/19/17 09:57 Dose: 5,000 unit Cyanocobalamin (Vitamin B12 -) 1,000 mcg PO DAILY [facility] Last Admin: 09/19/17 09:58 Dose: 1,000 mcg Digoxin (Lanoxin -) 0.125 mg PO DAILY [facility] Last Admin: 09/19/17 09:59 Dose: 0.125 mg Diltiazem HCl (Cardizem Cd -) 180 mg PO DAILY [facility] Last Admin: 09/19/17 09:58 Dose: 180 mg Fentanyl (Duragesic 12mcg Patch -) 1 patch TD Q72H [facility] Stop: 09/25/17 09:27 Last Admin: 09/18/17 11:25 Dose: 1 patch Magnesium Oxide (Mag-Ox -) 400 mg PO BID [facility] Last Admin: 09/19/17 21:30 Dose: 400 mg Metoprolol Succinate (Toprol Xl -) 25 mg PO DAILY [facility] Last Admin: 09/19/17 09:59 Dose: 25 mg Miscellaneous (Duragesic Patch Waste) 1 each [facility] PRN PRN PRN Reason: PAIN Oxycodone HCl (Roxicodone -) 5 mg PO Q4H PRN PRN Reason: PAIN LEVEL 7 - 10 Last Admin: 09/20/17 06:22 Dose: 5 mg Pyridoxine HCl (Vitamin B6 -) 50 mg PO DAILY [facility] Last Admin: 09/19/17 10:59 Dose: 50 mg Sertraline HCl (Zoloft -) 25 mg PO DAILY [facility] Last Admin: 09/19/17 09:58 Dose: 25 mg Sucralfate (Carafate Oral Suspension -) 1 gm PO DAILY [facility] Last Admin: 09/19/17 09:57 Dose: 1 gm Valsartan (Diovan -) 160 mg PO DAILY [facility] Last Admin: 09/19/17 09:58 Dose: 160 mg Voriconazole ([facility]end (Restricted To Id)) [facility] Last Admin: 09/19/17 18:07 Dose: 200 mg Gen: NAD, more comfortable Heart: RRR Lung: decreased breath sounds right base, Right PleureX Abd: soft, nontender Ext: no edema Laboratory Results - last 24 hr 09/16/17 09/20/17 09/20/17 17:30 06:20 06:20 WBC 10.8 H RBC 3.79 Hgb 11.5 Hct 34.6 MCV 91.5 MCH 30.3 MCHC 33.2 RDW 16.2 H Plt Count 267 MPV 9.0 Absolute Neuts (auto) 8.9 Neutrophils % 82.6 Lymphocytes % 7.9 L D Monocytes % 8.5 Eosinophils % 0.6 Basophils % 0.4 Nucleated RBC % 0 Sodium 135 L Potassium 5.7 H Chloride 91 L Carbon Dioxide 39 H Anion Gap 5 L BUN 17 Creatinine 0.8 Creat Clearance w eGFR > 60 Random Glucose 90 Calcium 8.9 Total Bilirubin 0.3 AST 34 ALT 27 Alkaline Phosphatase 77 Total Protein 5.3 L Albumin 2.6 L Beta-(1,3)-D-Glucan < 31 A/P Acute on Chronic Hypoxic Respiratory Failure Progressive Small Cell Ca with endobronchial involvement Right Pleural Effusion s/p R VATS/pleur-x placement r/o Pneumonia COPD Paroxysmal Atrial Fibrillation s/p PPM PAD - Pain control: Fentanyl patch/PRN Oxycodone - monitor chest tube drainage - O2 to keep SpO2 >90% - inhaled bronchodilators - rate controlled - AC - completed empiric antibiotics - Patient has decided for Chemotherapy Dr Palomino
[2017-09-20] MEDS ORDERED: PT OWN MED DRAWER 7, Y5N ONE ×3 (09:28→20:45)
[2017-09-20] MEDS: MAGNESIUM OXIDE 400 MG TABLET (FP) PO SCH ×2 (09:33→21:39)
[2017-09-20] MEDS: CHOLECALCIFEROL (VITAMIN D3) 1,000 UNIT TABLET (FP) PO SCH (09:33)
[2017-09-20] MEDS: metoPROLOL SUCCINATE 25 MG TAB.SR.24H (FP) PO SCH (09:34)
[2017-09-20] MEDS: VALSARTAN 160 MG TABLET (UD) PO SCH (09:34)
[2017-09-20] MEDS: SERTRALINE HCL 25 MG TABLET (FP) PO SCH (09:34)
[2017-09-20] MEDS: ACETAMINOPHEN 325 MG TABLET (FP) PO PRN ×2 (09:34→18:17)
[2017-09-20] MEDS: DIGOXIN 0.125 MG TABLET (FP) PO SCH (09:34)
[2017-09-20] MEDS: ASCORBIC ACID 500 MG TABLET (FP) PO SCH (09:34)
[2017-09-20] MEDS: CYANOCOBALAMIN 1,000 MCG TABLET (FP) PO SCH (09:34)
[2017-09-20] MEDS: APIXABAN 2.5 MG TABLET PO SCH ×2 (09:35→21:40)
[2017-09-20] MEDS: PYRIDOXINE HCL (B-6) 50 MG TABLET (FP) PO SCH (09:35)
[2017-09-20] MEDS: SUCRALFATE 1 GM/10 ML UNIT DOSE CUPS PO SCH (09:35)
[2017-09-20] MEDS: VORICONAZOLE 200 MG TABLET (RESTRICTED TO ID) PO SCH ×2 (09:36→18:15)
--- NOTE | 2017-09-20 10:21 | PN ---
Progress Note (short form) - Note Progress Note: s: no cp, palps, edema, dizzy sob Current Medications Generic Name Dose Route Start Last Admin Trade Name Freq PRN Reason Stop Dose Admin Acetaminophen 650 mg 09/18/17 00:15 09/20/17 09:34 Tylenol - PO 650 mg Q4H PRN Administration FEVER Apixaban 2.5 mg 09/18/17 10:00 09/20/17 09:35 Eliquis - PO 2.5 mg BID [facility] Administration Ascorbic Acid 500 mg 09/18/17 10:00 09/20/17 09:34 Vitamin C - PO 500 mg DAILY [facility] Administration Cholecalciferol 5,000 unit 09/18/17 10:00 09/20/17 09:33 Vitamin D3 - PO 5,000 unit DAILY [facility] Administration Cyanocobalamin 1,000 mcg 09/18/17 10:00 09/20/17 09:34 Vitamin B12 - PO 1,000 mcg DAILY [facility] Administration Digoxin 0.125 mg 09/18/17 10:00 09/20/17 09:34 Lanoxin - PO 0.125 mg DAILY [facility] Administration Diltiazem HCl 180 mg 09/18/17 10:00 09/20/17 09:34 Cardizem Cd - PO 180 mg DAILY [facility] Administration Fentanyl 1 patch 09/18/17 09:30 09/18/17 11:25 Duragesic 12mcg Patch - TD 09/25/17 09:27 1 patch Q72H [facility] Administration Magnesium Oxide 400 mg 09/18/17 10:00 09/20/17 09:33 Mag-Ox - PO 400 mg BID [facility] Administration Metoprolol Succinate 25 mg 09/18/17 10:00 09/20/17 09:34 Toprol Xl - PO 25 mg DAILY [facility] Administration Miscellaneous 1 each 09/18/17 09:27 Duragesic Patch Waste [facility] PRN PRN PAIN Oxycodone HCl 5 mg 09/18/17 00:15 09/20/17 06:22 Roxicodone - PO 5 mg Q4H PRN Administration PAIN LEVEL 7 - 10 Pyridoxine HCl 50 mg 09/18/17 10:00 09/20/17 09:35 Vitamin B6 - PO 50 mg DAILY [facility] Administration Sertraline HCl 25 mg 09/18/17 10:00 09/20/17 09:34 Zoloft - PO 25 mg DAILY [facility] Administration Sucralfate 1 gm 09/18/17 10:00 09/20/17 09:35 Carafate Oral Suspension - PO 1 gm DAILY [facility] Administration Valsartan 160 mg 09/18/17 10:00 09/20/17 09:34 Diovan - PO 160 mg DAILY [facility] Administration Voriconazole 200 mg 09/19/17 18:30 09/20/17 09:36 Vfend (Restricted To Id) PO 200 mg BIDPC [facility] Administration - Objective Vital Signs: Vital Signs Period Temp Pulse Resp BP Sys/Wahl Pulse Ox Last 24 Hr 97.5 F-98.9 F 60-90 20-22 109-128/46-60 96 Constitutional: Yes: Well Nourished, No Distress, Calm Cardiovascular: Yes: Regular Rate and Rhythm, S1, S2. No: JVD, Gallop, Murmur Respiratory: Yes: Regular, CTA Bilaterally (absent bases). No: Accessory Muscle Use, Rales, Wheezes Extremities: No: Cold Edema: No Neurological: Yes: Alert, Oriented Psychiatric: No: Agitated no jaundice diaphoresis CBC, BMP 09/20/17 06:20 09/20/17 06:20 MIBI 05/21 (dobut): no STs, minimal apical isch vs variable brst (small LV/hyper EF) Echo 05/2016 (): tds; nl lv, nl rv size, mild , mild mr, mild-mod tr; rvsp 40-50, mod ao root dil EKG 09/08/17 V paced Assessment/Plan 81 f hx afib, htn, hld, tachy/maricruz syndrome s/p ppm, copd, pad s/p rle bypass, possible cad (equivocal MIBI), chronic sob/briones/palps likely related to anxiety, esophageal ca s/p laser treatment, neuroendocrine small cell carcinoma of lung p /w shortness of breath now s/p VATS and pleur-x catheter placement with hypotension Htn: -controlled on current meds s/p PPM - last interrogated 07/2017 stable function Afib - dig, dilt, eliquis at home, continue - rates stable CAD - hx equivocal stress - on arb, statin at home, continue h/o HFPEF - euvolemic, urinary incontinence, holding lasix for now - resume lasix at 20 qod on hosp discharge. PAD s/p bypass - continue ARB, statin lung cancer/malign effusion s/p VATS - per pulm, onc, thoracic surgery
--- NOTE | 2017-09-20 10:31 | PN ---
Progress Note, Physician History of Present Illness: Feeling OK this morning. Using incentive spirometer, breathing feeling OK. Still gets dome pain at chest tube site when tube gets pulled. - Current Medication List Current Medications: Active Medications Acetaminophen (Tylenol -) 650 mg PO Q4H PRN PRN Reason: FEVER Last Admin: 09/20/17 09:34 Dose: 650 mg Apixaban (Eliquis -) 2.5 mg PO BID [facility] Last Admin: 09/20/17 09:35 Dose: 2.5 mg Ascorbic Acid (Vitamin C -) 500 mg PO DAILY [facility] Last Admin: 09/20/17 09:34 Dose: 500 mg Cholecalciferol (Vitamin D3 -) 5,000 unit PO DAILY [facility] Last Admin: 09/20/17 09:33 Dose: 5,000 unit Cyanocobalamin (Vitamin B12 -) 1,000 mcg PO DAILY [facility] Last Admin: 09/20/17 09:34 Dose: 1,000 mcg Digoxin (Lanoxin -) 0.125 mg PO DAILY [facility] Last Admin: 09/20/17 09:34 Dose: 0.125 mg Diltiazem HCl (Cardizem Cd -) 180 mg PO DAILY [facility] Last Admin: 09/20/17 09:34 Dose: 180 mg Fentanyl (Duragesic 12mcg Patch -) 1 patch TD Q72H [facility] Stop: 09/25/17 09:27 Last Admin: 09/18/17 11:25 Dose: 1 patch Magnesium Oxide (Mag-Ox -) 400 mg PO BID [facility] Last Admin: 09/20/17 09:33 Dose: 400 mg Metoprolol Succinate (Toprol Xl -) 25 mg PO DAILY [facility] Last Admin: 09/20/17 09:34 Dose: 25 mg Miscellaneous (Duragesic Patch Waste) 1 each [facility] PRN PRN PRN Reason: PAIN Oxycodone HCl (Roxicodone -) 5 mg PO Q4H PRN PRN Reason: PAIN LEVEL 7 - 10 Last Admin: 09/20/17 06:22 Dose: 5 mg Pyridoxine HCl (Vitamin B6 -) 50 mg PO DAILY [facility] Last Admin: 09/20/17 09:35 Dose: 50 mg Sertraline HCl (Zoloft -) 25 mg PO DAILY [facility] Last Admin: 09/20/17 09:34 Dose: 25 mg Sucralfate (Carafate Oral Suspension -) 1 gm PO DAILY [facility] Last Admin: 09/20/17 09:35 Dose: 1 gm Valsartan (Diovan -) 160 mg PO DAILY [facility] Last Admin: 09/20/17 09:34 Dose: 160 mg Voriconazole (Vfend (Restricted To Id)) 200 mg PO BIDPC [facility] Last Admin: 09/20/17 09:36 Dose: 200 mg - Objective Vital Signs: Vital Signs Temperature 98.3 F 09/20/17 05:27 Pulse Rate 90 09/20/17 09:34 Respiratory Rate 20 09/20/17 05:27 Blood Pressure 128/57 09/20/17 05:27 O2 Sat by Pulse Oximetry (%) 96 09/19/17 21:00 Constitutional: Yes: No Distress, Calm HENT: Yes: Atraumatic, Normocephalic Cardiovascular: Yes: Regular Rate and Rhythm, S1, S2. No: Murmur Respiratory: Yes: Diminished (bilaterally) Gastrointestinal: Yes: Normal Bowel Sounds, Soft. 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
--- NOTE | 2017-09-20 13:33 | PN ---
Progress Note (short form) - Note Progress Note: ONCOLOGY FOLLOW UP NOTE : Patient seen and examined She ate lunch and feels well Vital Signs Period Temp Pulse Resp BP Sys/Wahl Pulse Ox Last 24 Hr 97.5 F-98.9 F 62-90 20-22 109-128/46-60 96-96 Cor -atrial fib Lungs: diminished breath sounds scattered rhonchi Abd: Soft, Normal bowel sounds, No organomegaly Ext:No significant edema Skin: No rashes, Integument intact CBC, BMP 09/20/17 06:20 09/20/17 06:20 Active Medications Generic Name Dose Route Start Last Admin Trade Name Freq PRN Reason Stop Dose Admin Acetaminophen 650 mg 09/18/17 00:15 09/20/17 09:34 Tylenol - PO 650 mg Q4H PRN Administration FEVER Apixaban 2.5 mg 09/18/17 10:00 09/20/17 09:35 Eliquis - PO 2.5 mg BID [facility] Administration Ascorbic Acid 500 mg 09/18/17 10:00 09/20/17 09:34 Vitamin C - PO 500 mg DAILY [facility] Administration Cholecalciferol 5,000 unit 09/18/17 10:00 09/20/17 09:33 Vitamin D3 - PO 5,000 unit DAILY [facility] Administration Cyanocobalamin 1,000 mcg 09/18/17 10:00 09/20/17 09:34 Vitamin B12 - PO 1,000 mcg DAILY [facility] Administration Digoxin 0.125 mg 09/18/17 10:00 09/20/17 09:34 Lanoxin - PO 0.125 mg DAILY [facility] Administration Diltiazem HCl 180 mg 09/18/17 10:00 09/20/17 09:34 Cardizem Cd - PO 180 mg DAILY [facility] Administration Fentanyl 1 patch 09/18/17 09:30 09/18/17 11:25 Duragesic 12mcg Patch - TD 09/25/17 09:27 1 patch Q72H [facility] Administration Magnesium Oxide 400 mg 09/18/17 10:00 09/20/17 09:33 Mag-Ox - PO 400 mg BID [facility] Administration Metoprolol Succinate 25 mg 09/18/17 10:00 09/20/17 09:34 Toprol Xl - PO 25 mg DAILY [facility] Administration Miscellaneous 1 each 09/18/17 09:27 Duragesic Patch Waste [facility] PRN PRN PAIN Oxycodone HCl 5 mg 09/18/17 00:15 09/20/17 06:22 Roxicodone - PO 5 mg Q4H PRN Administration PAIN LEVEL 7 - 10 Pyridoxine HCl 50 mg 09/18/17 10:00 09/20/17 09:35 Vitamin B6 - PO 50 mg DAILY [facility] Administration Sertraline HCl 25 mg 09/18/17 10:00 09/20/17 09:34 Zoloft - PO 25 mg DAILY [facility] Administration Sucralfate 1 gm 09/18/17 10:00 09/20/17 09:35 Carafate Oral Suspension - PO 1 gm DAILY [facility] Administration Valsartan 160 mg 09/18/17 10:00 09/20/17 09:34 Diovan - PO 160 mg DAILY [facility] Administration Voriconazole 200 mg 09/19/17 18:30 09/20/17 09:36 Vfend (Restricted To Id) PO 200 mg BIDPC [facility] Administration Impression: High grade Neuroendocrine tumor Pleural effusion - s/p VATS and pleurex catheter Atrial fib on eliquis Fungal infection on bronchoscopy - Anti -fungal therapy Plan will monitor status More debilitated , dyspneic, and will decide merits or lack thereof of treatment over next several days.
[2017-09-20 14:10] LABS: CHLORIDE 89 mmol/L (98-107); POTASSIUM 5.2 mmol/L (3.5-5.1); SODIUM 132 mmol/L (136-145)
[2017-09-20 14:17] LABS: ANION GAP 3 (8-16); BLOOD UREA NITROGEN 18 mg/dL (7-18); CALCIUM 8.3 mg/dL (8.5-10.1); CO2 40 mmol/L (21-32); CREATININE 0.9 mg/dL (0.55-1.02); GLUCOSE,RANDOM 119 mg/dL (74-106)
[2017-09-21] MEDS: oxyCODONE HCL 5 MG TABLET PO PRN ×2 (01:29→20:39)
[2017-09-21] MEDS: ACETAMINOPHEN 325 MG TABLET (FP) PO PRN ×2 (01:29→09:38)
[2017-09-21 07:39] LABS: BASO % 0.2 % (0-2.0); EOS % 0.2 % (0-4.5); HEMATOCRIT 34.6 % (32.4-45.2); HEMOGLOBIN 11.4 GM/dL (10.7-15.3); LYMPH % 5.6 % (8-40); MCH 30.2 pg (25.7-33.7); MCHC 32.9 g/dl (32.0-36.0); MEAN CELL VOLUME 91.6 fl (80-96); MEAN PLT VOLUME 8.7 fl (7.5-11.1); MONO % 6.6 % (3.8-10.2); NEUT % 87.4 % (42.8-82.8); PLATELET COUNT 263 K/MM3 (134-434); RBC 3.78 M/mm3 (3.60-5.2); WHITE BLOOD COUNT 12.4 K/mm3 (4.0-10.0)
[2017-09-21] MEDS ORDERED: PT OWN MED DRAWER 7, Y5N ONE (09:21)
[2017-09-21 09:27] LABS: ALBUMIN 2.6 g/dl (3.4-5.0); ALK PHOS 83 U/L (45-117); ANION GAP 4 (8-16); BILIRUBIN,TOTAL 0.3 mg/dL (0.2-1.0); BLOOD UREA NITROGEN 25 mg/dL (7-18); CALCIUM 9.1 mg/dL (8.5-10.1); CHLORIDE 89 mmol/L (98-107); CO2 37 mmol/L (21-32); GLUCOSE,RANDOM 97 mg/dL (74-106); MAGNESIUM 2.6 mg/dL (1.8-2.4); SGOT/AST 35 U/L (15-37); SGPT/ALT 28 U/L (12-78); SODIUM 130 mmol/L (136-145); TOT PROT 5.5 g/dl (6.4-8.2)
[2017-09-21] MEDS: SERTRALINE HCL 25 MG TABLET (FP) PO SCH (09:33)
[2017-09-21] MEDS: CYANOCOBALAMIN 1,000 MCG TABLET (FP) PO SCH (09:33)
[2017-09-21] MEDS: metoPROLOL SUCCINATE 25 MG TAB.SR.24H (FP) PO SCH (09:34)
[2017-09-21] MEDS: ASCORBIC ACID 500 MG TABLET (FP) PO SCH (09:34)
[2017-09-21] MEDS: CHOLECALCIFEROL (VITAMIN D3) 1,000 UNIT TABLET (FP) PO SCH (09:34)
[2017-09-21] MEDS: DIGOXIN 0.125 MG TABLET (FP) PO SCH (09:36)
[2017-09-21] MEDS: APIXABAN 2.5 MG TABLET PO SCH ×3 (09:36→21:24)
[2017-09-21] MEDS: VORICONAZOLE 200 MG TABLET (RESTRICTED TO ID) PO SCH ×2 (09:37→17:44)
[2017-09-21] MEDS: MAGNESIUM OXIDE 400 MG TABLET (FP) PO SCH ×3 (09:37→21:24)
[2017-09-21] MEDS: PYRIDOXINE HCL (B-6) 50 MG TABLET (FP) PO SCH (09:37)
[2017-09-21] MEDS: fentaNYL 12mcg/hr PATCH.TD72 TD SCH (09:38)
[2017-09-21] MEDS: SUCRALFATE 1 GM/10 ML UNIT DOSE CUPS PO SCH (09:39)
[2017-09-21 09:44] LABS: POTASSIUM 6.6 mmol/L (3.5-5.1)
[2017-09-21] MEDS ORDERED: SODIUM BICARBONATE 8.4% 50 MEQ/50 ML DISP.SYRIN IVPUSH ONE ×2 (10:07→14:00)
[2017-09-21] MEDS ORDERED: SODIUM POLYSTYRENE SULFONATE 15 GM/60 ML BOTTLE PO ONE ×2 (10:07→14:00)
[2017-09-21] MEDS ORDERED: DEXTROSE 50%-WATER - 25 GM/50 ML VIAL IVPUSH ONE ×2 (10:07→14:00)
[2017-09-21] MEDS ORDERED: INSULIN REGULAR HUMAN 100 UNITS/ML *VIAL IVPUSH ONE ×2 (10:07→14:00)
[2017-09-21] MEDS: VALSARTAN 160 MG TABLET (UD) PO SCH (11:30)
--- NOTE | 2017-09-21 14:04 | PN ---
Progress Note (short form) - Note Progress Note: s: transferred to tele floor for hyperkalemia, given kayexalate. no cp, palps, edema, dizzy sob tele: v paced, 70s Current Medications Acetaminophen (Tylenol -) 650 mg PO Q4H PRN PRN Reason: FEVER Last Admin: 09/21/17 09:38 Dose: 650 mg Apixaban (Eliquis -) 2.5 mg PO BID [facility] Last Admin: 09/21/17 09:36 Dose: 2.5 mg Ascorbic Acid (Vitamin C -) 500 mg PO DAILY [facility] Last Admin: 09/21/17 09:34 Dose: 500 mg Cholecalciferol (Vitamin D3 -) 5,000 unit PO DAILY [facility] Last Admin: 09/21/17 09:34 Dose: 5,000 unit Cyanocobalamin (Vitamin B12 -) 1,000 mcg PO DAILY [facility] Last Admin: 09/21/17 09:33 Dose: 1,000 mcg Digoxin (Lanoxin -) 0.125 mg PO DAILY [facility] Last Admin: 09/21/17 09:36 Dose: 0.125 mg Diltiazem HCl (Cardizem Cd -) 180 mg PO DAILY [facility] Last Admin: 09/21/17 11:27 Dose: 180 mg Fentanyl (Duragesic 12mcg Patch -) 1 patch TD Q72H [facility] Stop: 09/25/17 09:27 Last Admin: 09/21/17 09:38 Dose: 1 patch Magnesium Oxide (Mag-Ox -) 400 mg PO BID [facility] Last Admin: 09/21/17 09:37 Dose: 400 mg Metoprolol Succinate (Toprol Xl -) 25 mg PO DAILY [facility] Last Admin: 09/21/17 09:34 Dose: 25 mg Miscellaneous (Duragesic Patch Waste) 1 each [facility] PRN PRN PRN Reason: PAIN Oxycodone HCl (Roxicodone -) 5 mg PO Q4H PRN PRN Reason: PAIN LEVEL 7 - 10 Last Admin: 09/21/17 01:29 Dose: 5 mg Pyridoxine HCl (Vitamin B6 -) 50 mg PO DAILY [facility] Last Admin: 09/21/17 09:37 Dose: 50 mg Sertraline HCl (Zoloft -) 25 mg PO DAILY [facility] Last Admin: 09/21/17 09:33 Dose: 25 mg Sucralfate (Carafate Oral Suspension -) 1 gm PO DAILY [facility] Last Admin: 09/21/17 09:39 Dose: 1 gm Voriconazole (Vfend (Restricted To Id)) 200 mg PO BIDPC [facility] Last Admin: 09/21/17 09:37 Dose: 200 mg Vital Signs: Vital Signs Period Temp Pulse Resp BP Sys/Wahl Pulse Ox Last 24 Hr 97.5 F-98.7 F 68-86 20-22 113-138/51-66 95-97 Constitutional: Yes: Well Nourished, No Distress, Calm Cardiovascular: Yes: Regular Rate and Rhythm, S1, S2. No: JVD, Gallop, Murmur Respiratory: Yes: Regular, CTA Bilaterally (absent bases). No: Accessory Muscle Use, Rales, Wheezes Extremities: No: Cold Edema: No Neurological: Yes: Alert, Oriented Psychiatric: No: Agitated no jaundice diaphoresis MIBI 05/21 (dobut): no STs, minimal apical isch vs variable brst (small LV/hyper EF) Echo 05/2016 (): tds; nl lv, nl rv size, mild , mild mr, mild-mod tr; rvsp 40-50, mod ao root dil EKG 09/08/17 V paced Assessment/Plan 81 f hx afib, htn, hld, tachy/maricruz syndrome s/p ppm, copd, pad s/p rle bypass, possible cad (equivocal MIBI), chronic sob/briones/palps likely related to anxiety, esophageal ca s/p laser treatment, neuroendocrine small cell carcinoma of lung p /w shortness of breath now s/p VATS and pleur-x catheter placement with hypotension Hyperkalemia - management per primary team, including kayexalate, insulin/D50 and sodium bicarb - monitoring on tele, no events Htn: -controlled on current meds, continue s/p PPM - last interrogated 07/2017 stable function Afib - dig, dilt, eliquis at home, continue - rates stable CAD - hx equivocal stress - on arb, statin at home, continue h/o HFPEF - euvolemic, urinary incontinence, holding lasix for now - resume lasix at 20 qod on hosp discharge. PAD s/p bypass - continue ARB, statin lung cancer/malign effusion s/p VATS - per pulm, onc, thoracic surgery
--- NOTE | 2017-09-21 14:54 | PN ---
Progress Note, Physician Chief Complaint: Ms Moncada complains of slight lightheadedness today. No cp, sob, n/v. - Current Medication List Current Medications: Active Medications Acetaminophen (Tylenol -) 650 mg PO Q4H PRN PRN Reason: FEVER Last Admin: 09/21/17 09:38 Dose: 650 mg Apixaban (Eliquis -) 2.5 mg PO BID [facility] Last Admin: 09/21/17 09:36 Dose: 2.5 mg Ascorbic Acid (Vitamin C -) 500 mg PO DAILY [facility] Last Admin: 09/21/17 09:34 Dose: 500 mg Cholecalciferol (Vitamin D3 -) 5,000 unit PO DAILY [facility] Last Admin: 09/21/17 09:34 Dose: 5,000 unit Cyanocobalamin (Vitamin B12 -) 1,000 mcg PO DAILY [facility] Last Admin: 09/21/17 09:33 Dose: 1,000 mcg Digoxin (Lanoxin -) 0.125 mg PO DAILY [facility] Last Admin: 09/21/17 09:36 Dose: 0.125 mg Diltiazem HCl (Cardizem Cd -) 180 mg PO DAILY [facility] Last Admin: 09/21/17 11:27 Dose: 180 mg Fentanyl (Duragesic 12mcg Patch -) 1 patch TD Q72H [facility] Stop: 09/25/17 09:27 Last Admin: 09/21/17 09:38 Dose: 1 patch Magnesium Oxide (Mag-Ox -) 400 mg PO BID [facility] Last Admin: 09/21/17 09:37 Dose: 400 mg Metoprolol Succinate (Toprol Xl -) 25 mg PO DAILY [facility] Last Admin: 09/21/17 09:34 Dose: 25 mg Miscellaneous (Duragesic Patch Waste) 1 each [facility] PRN PRN PRN Reason: PAIN Oxycodone HCl (Roxicodone -) 5 mg PO Q4H PRN PRN Reason: PAIN LEVEL 7 - 10 Last Admin: 09/21/17 01:29 Dose: 5 mg Pyridoxine HCl (Vitamin B6 -) 50 mg PO DAILY [facility] Last Admin: 09/21/17 09:37 Dose: 50 mg Sertraline HCl (Zoloft -) 25 mg PO DAILY [facility] Last Admin: 09/21/17 09:33 Dose: 25 mg Sucralfate (Carafate Oral Suspension -) 1 gm PO DAILY [facility] Last Admin: 09/21/17 09:39 Dose: 1 gm Voriconazole (Vfend (Restricted To Id)) 200 mg PO BIDPC [facility] Last Admin: 09/21/17 09:37 Dose: 200 mg - Objective Vital Signs: Vital Signs Temperature 36.9 C 09/21/17 10:00 Pulse Rate 78 09/21/17 10:00 Respiratory Rate 22 09/21/17 10:00 Blood Pressure 131/65 09/21/17 10:00 O2 Sat by Pulse Oximetry (%) 95 09/21/17 09:00 Constitutional: Yes: No Distress, Calm, Thin Cardiovascular: Yes: Pulse Irregular. No: Tachycardia, Gallop, Murmur, Rub Respiratory: Yes: Regular, On Nasal O2, Rhonchi (bilateral, minimal). No: CTA Bilaterally, Rales, Wheezes Gastrointestinal: Yes: Normal Bowel Sounds, Soft. No: Distention, Tenderness Extremities: Yes: WNL Edema: No Labs: CBC, BMP 09/21/17 06:15 09/21/17 06:15 INR, PTT INR 1.34 (0.83-1.09) 09/08/17 05:40 Problem List - Problems (1) Hyperkalemia Code(s): E87.5 - HYPERKALEMIA (2) Acute and chronic respiratory failure with hypoxia Code(s): J96.21 - ACUTE AND CHRONIC RESPIRATORY FAILURE WITH HYPOXIA (3) Pleural effusion Code(s): J90 - PLEURAL EFFUSION, NOT ELSEWHERE CLASSIFIED (4) COPD exacerbation Code(s): J44.1 - CHRONIC OBSTRUCTIVE PULMONARY DISEASE W (ACUTE) EXACERBATION (5) Lung cancer Code(s): C34.90 - MALIGNANT NEOPLASM OF UNSP PART OF UNSP BRONCHUS OR LUNG Qualifiers: Laterality: right Lung location: unspecified part of lung Qualified Code( s): C34.91 - Malignant neoplasm of unspecified part of right bronchus or lung (6) Atrial fibrillation Code(s): I48.91 - UNSPECIFIED ATRIAL FIBRILLATION Qualifiers: Atrial fibrillation type: chronic Qualified Code(s): I48.2 - Chronic atrial fibrillation (7) CHF (congestive heart failure) Code(s): I50.9 - HEART FAILURE, UNSPECIFIED (8) Hyperlipidemia Code(s): E78.5 - HYPERLIPIDEMIA, UNSPECIFIED (9) Hypertension Code(s): I10 - ESSENTIAL (PRIMARY) HYPERTENSION (10) Pacemaker Code(s): Z95.0 - PRESENCE OF CARDIAC PACEMAKER (11) Pain Code(s): R52 - PAIN, UNSPECIFIED Assessment/Plan (1) Acute and chronic respiratory failure with hypoxia Assessment/Plan: -at baseline Code(s): J96.21 - ACUTE AND CHRONIC RESPIRATORY FAILURE WITH HYPOXIA (2) Pleural effusion Assessment/Plan: -pleurx catheter placed Code(s): J90 - PLEURAL EFFUSION, NOT ELSEWHERE CLASSIFIED (3) COPD exacerbation Assessment/Plan: -stable -continue oxygen support -continue inhalers Code(s): J44.1 - CHRONIC OBSTRUCTIVE PULMONARY DISEASE W (ACUTE) EXACERBATION (4) Lung cancer Assessment/Plan: -oncology following -unable to start today Code(s): C34.90 - MALIGNANT NEOPLASM OF UNSP PART OF UNSP BRONCHUS OR LUNG Qualifiers: Laterality: right Lung location: unspecified part of lung Qualified Code( s): C34.91 - Malignant neoplasm of unspecified part of right bronchus or lung (5) Atrial fibrillation Assessment/Plan: -controlled -continue eliquis -continue diltiazem -transfer to telemetry secondary to hyperkalemia Code(s): I48.91 - UNSPECIFIED ATRIAL FIBRILLATION Qualifiers: Atrial fibrillation type: chronic Qualified Code(s): I48.2 - Chronic atrial fibrillation (6) CHF (congestive heart failure) Assessment/Plan: -continue lasix Code(s): I50.9 - HEART FAILURE, UNSPECIFIED Qualifiers: Qualified Code(s): I50.9 - Heart failure, unspecified (7) Hyperlipidemia Assessment/Plan: -considering overall prognosis, will stop statin Code(s): E78.5 - HYPERLIPIDEMIA, UNSPECIFIED (8) Hypertension Assessment/Plan: -stop valsartan today -continue diltiazem Code(s): I10 - ESSENTIAL (PRIMARY) HYPERTENSION (9) Pacemaker Code(s): Z95.0 - PRESENCE OF CARDIAC PACEMAKER (10) Pain -suspect fentanyl patch causing lightheadedness -however not severe, will monitor (11) Hyperkalemia -stop valsartan -transfer to telemetry -give insulin/D50 and sodium bicarb -give kayexalate -recheck tonight
--- NOTE | 2017-09-21 16:40 | PN ---
Progress Note (short form) - Note Progress Note: unchanged transferred to telemetry for hyperkalemia Vital Signs Period Temp Pulse Resp BP Sys/Wahl Pulse Ox Last 24 Hr 97.6 F-98.7 F 68-86 20-22 113-138/51-72 95-97 cor-rrr lungs decreased bs at bases abd soft,nt ext no edema +chest tube CBC, BMP 09/21/17 06:15 09/21/17 06:15 a/p exophilia - fungal lung infection- small cell neuroendocrine lung cancer on po voriconazole d/w hospitalist- continue po voriconazole for now will re-evaluate in am hyperkalemia- arb d/tariq management per primary service Problem List - Problems (1) SOB (shortness of breath) Code(s): R06.02 - SHORTNESS OF BREATH (2) Pleural effusion Code(s): J90 - PLEURAL EFFUSION, NOT ELSEWHERE CLASSIFIED (3) Lung cancer Code(s): C34.90 - MALIGNANT NEOPLASM OF UNSP PART OF UNSP BRONCHUS OR LUNG Qualifiers: Laterality: right Lung location: unspecified part of lung Qualified Code( s): C34.91 - Malignant neoplasm of unspecified part of right bronchus or lung
[2017-09-21 20:50] LABS: ANION GAP 6 (8-16); BLOOD UREA NITROGEN 21 mg/dL (7-18); CALCIUM 8.6 mg/dL (8.5-10.1); CHLORIDE 89 mmol/L (98-107); CO2 38 mmol/L (21-32); CREATININE 0.8 mg/dL (0.55-1.02); GLUCOSE,RANDOM 82 mg/dL (74-106); POTASSIUM 4.6 mmol/L (3.5-5.1); SODIUM 133 mmol/L (136-145)
[2017-09-22] MEDS: oxyCODONE HCL 5 MG TABLET PO PRN ×3 (04:02→17:17)
[2017-09-22 07:42] LABS: BASO % 0.3 % (0-2.0); EOS % 0.2 % (0-4.5); HEMATOCRIT 32.9 % (32.4-45.2); HEMOGLOBIN 11.3 GM/dL (10.7-15.3); LYMPH % 6.6 % (8-40); MCH 30.9 pg (25.7-33.7); MCHC 34.3 g/dl (32.0-36.0); MEAN CELL VOLUME 90.1 fl (80-96); MEAN PLT VOLUME 8.9 fl (7.5-11.1); MONO % 8.5 % (3.8-10.2); NEUT % 84.4 % (42.8-82.8); PLATELET COUNT 276 K/MM3 (134-434); RBC 3.65 M/mm3 (3.60-5.2); RDW 15.7 % (11.6-15.6)
[2017-09-22 08:00] LABS: ANION GAP 4 (8-16); BLOOD UREA NITROGEN 16 mg/dL (7-18); CALCIUM 8.3 mg/dL (8.5-10.1); CHLORIDE 86 mmol/L (98-107); CO2 43 mmol/L (21-32); GLUCOSE,RANDOM 85 mg/dL (74-106); MAGNESIUM 2.1 mg/dL (1.8-2.4); POTASSIUM 4.4 mmol/L (3.5-5.1); SODIUM 133 mmol/L (136-145)
[2017-09-22 08:01] LABS: CREATININE 0.8 mg/dL (0.55-1.02); PHOSPHOROUS 3.5 mg/dL (2.5-4.9)
[2017-09-22] MEDS ORDERED: PT OWN MED DRAWER 7, Y5N ONE ×2 (09:10→17:11)
[2017-09-22] MEDS: SERTRALINE HCL 25 MG TABLET (FP) PO SCH (09:27)
[2017-09-22] MEDS: APIXABAN 2.5 MG TABLET PO SCH ×2 (09:27→21:29)
[2017-09-22] MEDS: CYANOCOBALAMIN 1,000 MCG TABLET (FP) PO SCH (09:27)
[2017-09-22] MEDS: DIGOXIN 0.125 MG TABLET (FP) PO SCH (09:27)
[2017-09-22] MEDS: CHOLECALCIFEROL (VITAMIN D3) 1,000 UNIT TABLET (FP) PO SCH (09:27)
[2017-09-22] MEDS: metoPROLOL SUCCINATE 25 MG TAB.SR.24H (FP) PO SCH (09:28)
[2017-09-22] MEDS: MAGNESIUM OXIDE 400 MG TABLET (FP) PO SCH ×2 (09:28→21:29)
[2017-09-22] MEDS: SUCRALFATE 1 GM/10 ML UNIT DOSE CUPS PO SCH (09:28)
[2017-09-22] MEDS: ASCORBIC ACID 500 MG TABLET (FP) PO SCH (09:28)
[2017-09-22] MEDS: VORICONAZOLE 200 MG TABLET (RESTRICTED TO ID) PO SCH ×2 (09:28→17:56)
[2017-09-22] MEDS: PYRIDOXINE HCL (B-6) 50 MG TABLET (FP) PO SCH (09:29)
--- NOTE | 2017-09-22 10:17 | PN ---
Progress Note (short form) - Note Progress Note: s: chest pain this morning near chest tube site. palps, edema, dizzy sob tele: v paced, 70s, occasional afib Current Medications Acetaminophen (Tylenol -) 650 mg PO Q4H PRN PRN Reason: FEVER Last Admin: 09/21/17 09:38 Dose: 650 mg Apixaban (Eliquis -) 2.5 mg PO BID [facility] Last Admin: 09/21/17 09:36 Dose: 2.5 mg Ascorbic Acid (Vitamin C -) 500 mg PO DAILY [facility] Last Admin: 09/21/17 09:34 Dose: 500 mg Cholecalciferol (Vitamin D3 -) 5,000 unit PO DAILY [facility] Last Admin: 09/21/17 09:34 Dose: 5,000 unit Cyanocobalamin (Vitamin B12 -) 1,000 mcg PO DAILY [facility] Last Admin: 09/21/17 09:33 Dose: 1,000 mcg Digoxin (Lanoxin -) 0.125 mg PO DAILY [facility] Last Admin: 09/21/17 09:36 Dose: 0.125 mg Diltiazem HCl (Cardizem Cd -) 180 mg PO DAILY [facility] Last Admin: 09/21/17 11:27 Dose: 180 mg Fentanyl (Duragesic 12mcg Patch -) 1 patch TD Q72H [facility] Stop: 09/25/17 09:27 Last Admin: 09/21/17 09:38 Dose: 1 patch Magnesium Oxide (Mag-Ox -) 400 mg PO BID [facility] Last Admin: 09/21/17 09:37 Dose: 400 mg Metoprolol Succinate (Toprol Xl -) 25 mg PO DAILY [facility] Last Admin: 09/21/17 09:34 Dose: 25 mg Miscellaneous (Duragesic Patch Waste) 1 each [facility] PRN PRN PRN Reason: PAIN Oxycodone HCl (Roxicodone -) 5 mg PO Q4H PRN PRN Reason: PAIN LEVEL 7 - 10 Last Admin: 09/21/17 01:29 Dose: 5 mg Pyridoxine HCl (Vitamin B6 -) 50 mg PO DAILY [facility] Last Admin: 09/21/17 09:37 Dose: 50 mg Sertraline HCl (Zoloft -) 25 mg PO DAILY [facility] Last Admin: 09/21/17 09:33 Dose: 25 mg Sucralfate (Carafate Oral Suspension -) 1 gm PO DAILY [facility] Last Admin: 09/21/17 09:39 Dose: 1 gm Voriconazole (Vfend (Restricted To Id)) 200 mg PO BIDPC [facility] Last Admin: 09/21/17 09:37 Dose: 200 mg Vital Signs: Vital Signs Period Temp Pulse Resp BP Sys/Wahl Pulse Ox Last 24 Hr 97.5 F-98.7 F 68-86 20-22 113-138/51-66 95-97 Constitutional: Yes: Well Nourished, No Distress, Calm Cardiovascular: Yes: Regular Rate and Rhythm, S1, S2. No: JVD, Gallop, Murmur Respiratory: Yes: Regular, CTA Bilaterally (absent bases). No: Accessory Muscle Use, Rales, Wheezes Extremities: No: Cold Edema: No Neurological: Yes: Alert, Oriented Psychiatric: No: Agitated no jaundice diaphoresis MIBI 05/21 (dobut): no STs, minimal apical isch vs variable brst (small LV/hyper EF) Echo 05/2016 (): tds; nl lv, nl rv size, mild , mild mr, mild-mod tr; rvsp 40-50, mod ao root dil EKG 09/08/17 V paced EKG 09/22/17 afib with nonspecific T wave changes, V paced Assessment/Plan 81 f hx afib, htn, hld, tachy/maricruz syndrome s/p ppm, copd, pad s/p rle bypass, possible cad (equivocal MIBI), chronic sob/briones/palps likely related to anxiety, esophageal ca s/p laser treatment, neuroendocrine small cell carcinoma of lung p /w shortness of breath now s/p VATS and pleur-x catheter placement with hypotension chest pain - likely from chest tube site, EKG unremarkable and pain resolved Hyperkalemia - K improved - monitoring on tele, no events - would dc telemetry Htn: -controlled on current meds, continue s/p PPM - last interrogated 07/2017 stable function Afib - dig, dilt, eliquis at home, continue - rates stable CAD - hx equivocal stress - on arb, statin at home, continue h/o HFPEF - euvolemic, urinary incontinence, holding lasix for now - resume lasix at 20 qod on hosp discharge. PAD s/p bypass - continue ARB, statin lung cancer/malign effusion s/p VATS - per pulm, onc, thoracic surgery
--- NOTE | 2017-09-22 11:33 | PN ---
Progress Note, Physician History of Present Illness: PULMONARY ALERT,COMFORTABLE,BREATHING BETTER. CHEST TUBE DRAINAGE 350CC - Current Medication List Current Medications: Active Medications Acetaminophen (Tylenol -) 650 mg PO Q4H PRN PRN Reason: FEVER Last Admin: 09/21/17 09:38 Dose: 650 mg Apixaban (Eliquis -) 2.5 mg PO BID [facility] Last Admin: 09/22/17 09:27 Dose: 2.5 mg Ascorbic Acid (Vitamin C -) 500 mg PO DAILY [facility] Last Admin: 09/22/17 09:28 Dose: 500 mg Cholecalciferol (Vitamin D3 -) 5,000 unit PO DAILY [facility] Last Admin: 09/22/17 09:27 Dose: 5,000 unit Cyanocobalamin (Vitamin B12 -) 1,000 mcg PO DAILY [facility] Last Admin: 09/22/17 09:27 Dose: 1,000 mcg Digoxin (Lanoxin -) 0.125 mg PO DAILY [facility] Last Admin: 09/22/17 09:27 Dose: 0.125 mg Diltiazem HCl (Cardizem Cd -) 180 mg PO DAILY [facility] Last Admin: 09/22/17 09:28 Dose: 180 mg Fentanyl (Duragesic 12mcg Patch -) 1 patch TD Q72H [facility] Stop: 09/25/17 09:27 Last Admin: 09/21/17 09:38 Dose: 1 patch Magnesium Oxide (Mag-Ox -) 400 mg PO BID [facility] Last Admin: 09/22/17 09:28 Dose: 400 mg Metoprolol Succinate (Toprol Xl -) 25 mg PO DAILY [facility] Last Admin: 09/22/17 09:28 Dose: 25 mg Miscellaneous (Duragesic Patch Waste) 1 each [facility] PRN PRN PRN Reason: PAIN Oxycodone HCl (Roxicodone -) 5 mg PO Q4H PRN PRN Reason: PAIN LEVEL 7 - 10 Last Admin: 09/22/17 04:02 Dose: 5 mg Pyridoxine HCl (Vitamin B6 -) 50 mg PO DAILY [facility] Last Admin: 09/22/17 09:29 Dose: 50 mg Sertraline HCl (Zoloft -) 25 mg PO DAILY [facility] Last Admin: 09/22/17 09:27 Dose: 25 mg Sucralfate (Carafate Oral Suspension -) 1 gm PO DAILY [facility] Last Admin: 09/22/17 09:28 Dose: 1 gm Voriconazole (Vfend (Restricted To Id)) 200 mg PO BIDPC [facility] Last Admin: 09/22/17 09:28 Dose: 200 mg - Objective Vital Signs: Vital Signs Temperature 98.3 F 09/22/17 09:00 Pulse Rate 80 09/22/17 09:27 Respiratory Rate 18 09/22/17 09:00 Blood Pressure 121/56 09/22/17 09:00 O2 Sat by Pulse Oximetry (%) 90 L 09/22/17 09:00 Constitutional: Yes: Calm, Thin Eyes: Yes: WNL HENT: Yes: WNL Neck: Yes: WNL Cardiovascular: Yes: Pulse Irregular, S1, S2 Respiratory: Yes: Diminished Gastrointestinal: Yes: Normal Bowel Sounds, Soft Extremities: Yes: WNL Edema: No Labs: CBC, BMP 09/22/17 06:30 09/22/17 06:30 INR, PTT INR 1.34 (0.83-1.09) 09/08/17 05:40 Problem List - Problems (1) Acute and chronic respiratory failure with hypoxia Code(s): J96.21 - ACUTE AND CHRONIC RESPIRATORY FAILURE WITH HYPOXIA (2) COPD exacerbation Code(s): J44.1 - CHRONIC OBSTRUCTIVE PULMONARY DISEASE W (ACUTE) EXACERBATION (3) Lung cancer Code(s): C34.90 - MALIGNANT NEOPLASM OF UNSP PART OF UNSP BRONCHUS OR LUNG Qualifiers: Laterality: right Lung location: unspecified part of lung Qualified Code( s): C34.91 - Malignant neoplasm of unspecified part of right bronchus or lung (4) Pleural effusion Code(s): J90 - PLEURAL EFFUSION, NOT ELSEWHERE CLASSIFIED (5) Respiratory distress Code(s): R06.03 - ACUTE RESPIRATORY DISTRESS (6) SOB (shortness of breath) Code(s): R06.02 - SHORTNESS OF BREATH (7) Atrial fibrillation Code(s): I48.91 - UNSPECIFIED ATRIAL FIBRILLATION Qualifiers: Atrial fibrillation type: chronic Qualified Code(s): I48.2 - Chronic atrial fibrillation (8) Lung mass Code(s): R91.8 - OTHER NONSPECIFIC ABNORMAL FINDING OF LUNG FIELD (9) PAD (peripheral artery disease) Code(s): I73.9 - PERIPHERAL VASCULAR DISEASE, UNSPECIFIED (10) Pacemaker Code(s): Z95.0 - PRESENCE OF CARDIAC PACEMAKER Assessment/Plan ASSESSMENT AND PLAN: Acute on Chronic Hypoxic Respiratory Failure improving 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
--- NOTE | 2017-09-22 12:24 | PN ---
Progress Note, Physician Chief Complaint: Ms Moncada says she is feeling much better today. Not lightheaded. No cp, sob, n/v. Daughter at bedside and states no longer hallucinating. - Current Medication List Current Medications: Active Medications Acetaminophen (Tylenol -) 650 mg PO Q4H PRN PRN Reason: FEVER Last Admin: 09/21/17 09:38 Dose: 650 mg Apixaban (Eliquis -) 2.5 mg PO BID [facility] Last Admin: 09/22/17 09:27 Dose: 2.5 mg Ascorbic Acid (Vitamin C -) 500 mg PO DAILY [facility] Last Admin: 09/22/17 09:28 Dose: 500 mg Cholecalciferol (Vitamin D3 -) 5,000 unit PO DAILY [facility] Last Admin: 09/22/17 09:27 Dose: 5,000 unit Cyanocobalamin (Vitamin B12 -) 1,000 mcg PO DAILY [facility] Last Admin: 09/22/17 09:27 Dose: 1,000 mcg Digoxin (Lanoxin -) 0.125 mg PO DAILY [facility] Last Admin: 09/22/17 09:27 Dose: 0.125 mg Diltiazem HCl (Cardizem Cd -) 180 mg PO DAILY [facility] Last Admin: 09/22/17 09:28 Dose: 180 mg Fentanyl (Duragesic 12mcg Patch -) 1 patch TD Q72H [facility] Stop: 09/25/17 09:27 Last Admin: 09/21/17 09:38 Dose: 1 patch Magnesium Oxide (Mag-Ox -) 400 mg PO BID [facility] Last Admin: 09/22/17 09:28 Dose: 400 mg Metoprolol Succinate (Toprol Xl -) 25 mg PO DAILY [facility] Last Admin: 09/22/17 09:28 Dose: 25 mg Miscellaneous (Duragesic Patch Waste) 1 each [facility] PRN PRN PRN Reason: PAIN Oxycodone HCl (Roxicodone -) 5 mg PO Q4H PRN PRN Reason: PAIN LEVEL 7 - 10 Last Admin: 09/22/17 04:02 Dose: 5 mg Pyridoxine HCl (Vitamin B6 -) 50 mg PO DAILY [facility] Last Admin: 09/22/17 09:29 Dose: 50 mg Sertraline HCl (Zoloft -) 25 mg PO DAILY [facility] Last Admin: 09/22/17 09:27 Dose: 25 mg Sucralfate (Carafate Oral Suspension -) 1 gm PO DAILY [facility] Last Admin: 09/22/17 09:28 Dose: 1 gm Voriconazole (Vfend (Restricted To Id)) 200 mg PO BIDPC [facility] Last Admin: 09/22/17 09:28 Dose: 200 mg - Objective Vital Signs: Vital Signs Temperature 36.8 C 09/22/17 09:00 Pulse Rate 80 09/22/17 09:27 Respiratory Rate 18 09/22/17 09:00 Blood Pressure 121/56 09/22/17 09:00 O2 Sat by Pulse Oximetry (%) 90 L 09/22/17 09:00 Constitutional: Yes: No Distress, Calm, Thin Cardiovascular: Yes: Regular Rate and Rhythm. No: Gallop, Murmur, Rub Respiratory: Yes: Regular, On Nasal O2, Rhonchi. No: CTA Bilaterally, Rales, Wheezes Gastrointestinal: Yes: Normal Bowel Sounds, Soft. No: Distention, Tenderness Extremities: Yes: WNL Edema: No Labs: CBC, BMP 09/22/17 06:30 09/22/17 06:30 INR, PTT INR 1.34 (0.83-1.09) 09/08/17 05:40 Problem List - Problems (1) Hyperkalemia Code(s): E87.5 - HYPERKALEMIA (2) Acute and chronic respiratory failure with hypoxia Code(s): J96.21 - ACUTE AND CHRONIC RESPIRATORY FAILURE WITH HYPOXIA (3) Pleural effusion Code(s): J90 - PLEURAL EFFUSION, NOT ELSEWHERE CLASSIFIED (4) COPD exacerbation Code(s): J44.1 - CHRONIC OBSTRUCTIVE PULMONARY DISEASE W (ACUTE) EXACERBATION (5) Lung cancer Code(s): C34.90 - MALIGNANT NEOPLASM OF UNSP PART OF UNSP BRONCHUS OR LUNG Qualifiers: Laterality: right Lung location: unspecified part of lung Qualified Code( s): C34.91 - Malignant neoplasm of unspecified part of right bronchus or lung (6) Atrial fibrillation Code(s): I48.91 - UNSPECIFIED ATRIAL FIBRILLATION Qualifiers: Atrial fibrillation type: chronic Qualified Code(s): I48.2 - Chronic atrial fibrillation (7) CHF (congestive heart failure) Code(s): I50.9 - HEART FAILURE, UNSPECIFIED (8) Hyperlipidemia Code(s): E78.5 - HYPERLIPIDEMIA, UNSPECIFIED (9) Hypertension Code(s): I10 - ESSENTIAL (PRIMARY) HYPERTENSION (10) Pacemaker Code(s): Z95.0 - PRESENCE OF CARDIAC PACEMAKER (11) Pain Code(s): R52 - PAIN, UNSPECIFIED Assessment/Plan (1) Acute and chronic respiratory failure with hypoxia Assessment/Plan: -at baseline Code(s): J96.21 - ACUTE AND CHRONIC RESPIRATORY FAILURE WITH HYPOXIA (2) Pleural effusion Assessment/Plan: -pleurx catheter placed -still with significant amount of drainage Code(s): J90 - PLEURAL EFFUSION, NOT ELSEWHERE CLASSIFIED (3) COPD exacerbation Assessment/Plan: -stable -continue oxygen support -continue inhalers Code(s): J44.1 - CHRONIC OBSTRUCTIVE PULMONARY DISEASE W (ACUTE) EXACERBATION (4) Lung cancer Assessment/Plan: -oncology following -will d/w oncology if can tolerate chemotherapy Code(s): C34.90 - MALIGNANT NEOPLASM OF UNSP PART OF UNSP BRONCHUS OR LUNG Qualifiers: Laterality: right Lung location: unspecified part of lung Qualified Code( s): C34.91 - Malignant neoplasm of unspecified part of right bronchus or lung (5) Atrial fibrillation Assessment/Plan: -controlled -continue eliquis -continue diltiazem Code(s): I48.91 - UNSPECIFIED ATRIAL FIBRILLATION Qualifiers: Atrial fibrillation type: chronic Qualified Code(s): I48.2 - Chronic atrial fibrillation (6) CHF (congestive heart failure) Assessment/Plan: -continue lasix Code(s): I50.9 - HEART FAILURE, UNSPECIFIED Qualifiers: Qualified Code(s): I50.9 - Heart failure, unspecified (7) Hyperlipidemia Assessment/Plan: -considering overall prognosis, will stop statin Code(s): E78.5 - HYPERLIPIDEMIA, UNSPECIFIED (8) Hypertension Assessment/Plan: -continue diltiazem Code(s): I10 - ESSENTIAL (PRIMARY) HYPERTENSION (9) Pacemaker Code(s): Z95.0 - PRESENCE OF CARDIAC PACEMAKER (10) Pain -continue fentanyl patch (11) Hyperkalemia -secondary to valsartan -resolved
--- NOTE | 2017-09-22 20:23 | PN ---
Progress Note (short form) - Note Progress Note: patient seen and examined Continues to have chest tube drainage Continues to be dyspneic and tachypneic Last Vital Signs Temp Pulse Resp BP Pulse Ox 98.2 F 85 18 105/60 90 L 09/22/17 17:00 09/22/17 17:00 09/22/17 17:00 09/22/17 17:00 09/22/17 09:00 HEENT: JANNETH, EOM Intact Oropharynx: No thrush, No mucositis paced Lungs: rhonchi, diminished breath sounds Abd: Soft, Normal bowel sounds, No organomegaly Ext:No significant edema Skin: No rashes, Integument intact CBC, BMP 09/22/17 06:30 09/22/17 06:30 Current Medications Generic Name Dose Route Start Last Admin Trade Name Freq PRN Reason Stop Dose Admin Acetaminophen 650 mg 09/18/17 00:15 09/21/17 09:38 Tylenol - PO 650 mg Q4H PRN Administration FEVER Apixaban 2.5 mg 09/18/17 10:00 09/22/17 09:27 Eliquis - PO 2.5 mg BID RE[facility] Administration Ascorbic Acid 500 mg 09/18/17 10:00 09/22/17 09:28 Vitamin C - PO 500 mg DAILY [facility] Administration Cholecalciferol 5,000 unit 09/18/17 10:00 09/22/17 09:27 Vitamin D3 - PO 5,000 unit DAILY [facility] Administration Cyanocobalamin 1,000 mcg 09/18/17 10:00 09/22/17 09:27 Vitamin B12 - PO 1,000 mcg DAILY [facility] Administration Digoxin 0.125 mg 09/18/17 10:00 09/22/17 09:27 Lanoxin - PO 0.125 mg DAILY [facility] Administration Diltiazem HCl 180 mg 09/18/17 10:00 09/22/17 09:28 Cardizem Cd - PO 180 mg DAILY [facility] Administration Fentanyl 1 patch 09/18/17 09:30 09/21/17 09:38 Duragesic 12mcg Patch - TD 09/25/17 09:27 1 patch Q72H [facility] Administration Magnesium Oxide 400 mg 09/18/17 10:00 09/22/17 09:28 Mag-Ox - PO 400 mg BID [facility] Administration Metoprolol Succinate 25 mg 09/18/17 10:00 09/22/17 09:28 Toprol Xl - PO 25 mg DAILY [facility] Administration Miscellaneous 1 each 09/18/17 09:27 Duragesic Patch Waste [facility] PRN PRN PAIN Oxycodone HCl 5 mg 09/18/17 00:15 09/22/17 17:17 Roxicodone - PO 5 mg Q4H PRN Administration PAIN LEVEL 7 - 10 Pyridoxine HCl 50 mg 09/18/17 10:00 09/22/17 09:29 Vitamin B6 - PO 50 mg DAILY [facility] Administration Sertraline HCl 25 mg 09/18/17 10:00 09/22/17 09:27 Zoloft - PO 25 mg DAILY [facility] Administration Sucralfate 1 gm 09/18/17 10:00 09/22/17 09:28 Carafate Oral Suspension - PO 1 gm DAILY [facility] Administration Voriconazole 200 mg 09/19/17 18:30 09/22/17 17:56 Vfend (Restricted To Id) PO 200 mg BIDPC [facility] Administration Impression: Neuroendocrine tumor Fungal infection COPD Need to decide if institution of therapy will add significant benefit to quality of life.
[2017-09-23] MEDS: oxyCODONE HCL 5 MG TABLET PO PRN ×2 (03:44→09:29)
[2017-09-23 07:45] LABS: BASO % 0.4 % (0-2.0); EOS % 0.4 % (0-4.5); HEMATOCRIT 33.3 % (32.4-45.2); HEMOGLOBIN 11.2 GM/dL (10.7-15.3); LYMPH % 5.1 % (8-40); MCH 30.2 pg (25.7-33.7); MCHC 33.6 g/dl (32.0-36.0); MONO % 10.1 % (3.8-10.2); PLATELET COUNT 279 K/MM3 (134-434); RDW 15.8 % (11.6-15.6); WHITE BLOOD COUNT 12.2 K/mm3 (4.0-10.0)
[2017-09-23 08:34] LABS: ANION GAP 5 (8-16); BLOOD UREA NITROGEN 18 mg/dL (7-18); CALCIUM 8.6 mg/dL (8.5-10.1); CHLORIDE 84 mmol/L (98-107); CO2 42 mmol/L (21-32); GLUCOSE,RANDOM 101 mg/dL (74-106); MAGNESIUM 2.2 mg/dL (1.8-2.4); PHOSPHOROUS 3.1 mg/dL (2.5-4.9); POTASSIUM 4.5 mmol/L (3.5-5.1); SODIUM 131 mmol/L (136-145)
[2017-09-23 08:35] LABS: CREATININE 0.8 mg/dL (0.55-1.02)
[2017-09-23] MEDS: SERTRALINE HCL 25 MG TABLET (FP) PO SCH (09:29)
[2017-09-23] MEDS: metoPROLOL SUCCINATE 25 MG TAB.SR.24H (FP) PO SCH (09:30)
[2017-09-23] MEDS: APIXABAN 2.5 MG TABLET PO SCH ×2 (09:30→21:27)
[2017-09-23] MEDS: DIGOXIN 0.125 MG TABLET (FP) PO SCH (09:30)
[2017-09-23] MEDS: MAGNESIUM OXIDE 400 MG TABLET (FP) PO SCH ×2 (09:30→21:27)
[2017-09-23] MEDS: PYRIDOXINE HCL (B-6) 50 MG TABLET (FP) PO SCH (09:31)
[2017-09-23] MEDS: ASCORBIC ACID 500 MG TABLET (FP) PO SCH (09:31)
[2017-09-23] MEDS: CYANOCOBALAMIN 1,000 MCG TABLET (FP) PO SCH (09:31)
[2017-09-23] MEDS: SUCRALFATE 1 GM/10 ML UNIT DOSE CUPS PO SCH (09:31)
[2017-09-23] MEDS: CHOLECALCIFEROL (VITAMIN D3) 1,000 UNIT TABLET (FP) PO SCH (09:31)
[2017-09-23] MEDS: VORICONAZOLE 200 MG TABLET (RESTRICTED TO ID) PO SCH ×2 (09:31→17:35)
--- NOTE | 2017-09-23 10:08 | PN ---
Progress Note (short form) - Note Progress Note: s: no cp palps, edema, dizzy sob tele: v paced, 70s, occasional afib Current Medications Acetaminophen (Tylenol -) 650 mg PO Q4H PRN PRN Reason: FEVER Last Admin: 09/21/17 09:38 Dose: 650 mg Apixaban (Eliquis -) 2.5 mg PO BID [facility] Last Admin: 09/23/17 09:30 Dose: 2.5 mg Ascorbic Acid (Vitamin C -) 500 mg PO DAILY [facility] Last Admin: 09/23/17 09:31 Dose: 500 mg Cholecalciferol (Vitamin D3 -) 5,000 unit PO DAILY [facility] Last Admin: 09/23/17 09:31 Dose: 5,000 unit Cyanocobalamin (Vitamin B12 -) 1,000 mcg PO DAILY [facility] Last Admin: 09/23/17 09:31 Dose: 1,000 mcg Digoxin (Lanoxin -) 0.125 mg PO DAILY [facility] Last Admin: 09/23/17 09:30 Dose: 0.125 mg Diltiazem HCl (Cardizem Cd -) 180 mg PO DAILY [facility] Last Admin: 09/23/17 09:30 Dose: 180 mg Fentanyl (Duragesic 12mcg Patch -) 1 patch TD Q72H [facility] Stop: 09/25/17 09:27 Last Admin: 09/21/17 09:38 Dose: 1 patch Magnesium Oxide (Mag-Ox -) 400 mg PO BID [facility] Last Admin: 09/23/17 09:30 Dose: 400 mg Metoprolol Succinate (Toprol Xl -) 25 mg PO DAILY [facility] Last Admin: 09/23/17 09:30 Dose: 25 mg Miscellaneous (Duragesic Patch Waste) 1 each [facility] PRN PRN PRN Reason: PAIN Oxycodone HCl (Roxicodone -) 5 mg PO Q4H PRN PRN Reason: PAIN LEVEL 7 - 10 Last Admin: 09/23/17 09:29 Dose: 5 mg Pyridoxine HCl (Vitamin B6 -) 50 mg PO DAILY [facility] Last Admin: 09/23/17 09:31 Dose: 50 mg Sertraline HCl (Zoloft -) 25 mg PO DAILY [facility] Last Admin: 09/23/17 09:29 Dose: 25 mg Sucralfate (Carafate Oral Suspension -) 1 gm PO DAILY [facility] Last Admin: 09/23/17 09:31 Dose: 1 gm Voriconazole (Vfend (Restricted To Id)) 200 mg PO BIDPC [facility] Last Admin: 09/23/17 09:31 Dose: 200 mg Vital Signs: Vital Signs Period Temp Pulse Resp BP Sys/Wahl Pulse Ox Last 24 Hr 97.8 F-98.4 F 61-99 18-24 105-128/48-70 95-95 Constitutional: Yes: Well Nourished, No Distress, Calm Cardiovascular: Yes: Regular Rate and Rhythm, S1, S2. No: JVD, Gallop, Murmur Respiratory: Yes: Regular, CTA Bilaterally (absent bases). No: Accessory Muscle Use, Rales, Wheezes Extremities: No: Cold Edema: No Neurological: Yes: Alert, Oriented Psychiatric: No: Agitated no jaundice diaphoresis MIBI 05/21 (dobut): no STs, minimal apical isch vs variable brst (small LV/hyper EF) Echo 05/2016 ([facility]): tds; nl lv, nl rv size, mild , mild mr, mild-mod tr; rvsp 40-50, mod ao root dil EKG 09/08/17 V paced EKG 09/22/17 afib with nonspecific T wave changes, V paced Assessment/Plan 81 f hx afib, htn, hld, tachy/maricruz syndrome s/p ppm, copd, pad s/p rle bypass, possible cad (equivocal MIBI), chronic sob/briones/palps likely related to anxiety, esophageal ca s/p laser treatment, neuroendocrine small cell carcinoma of lung p /w shortness of breath now s/p VATS and pleur-x catheter placement with hypotension Hyperkalemia - K improved - monitoring on tele, no events - would dc telemetry with stable K - ARB dc'ed for hyperkalemia Htn: -controlled on current meds, continue - valsartan dc'ed for hyperkalemia s/p PPM - last interrogated 07/2017 stable function Afib - dig, dilt, eliquis at home, continue - rates stable CAD - hx equivocal stress - on arb, statin at home, continue h/o HFPEF - euvolemic, urinary incontinence, holding lasix for now - resume lasix at 20 qod on hosp discharge. PAD s/p bypass - continue ARB, statin lung cancer/malign effusion s/p VATS - per pulm, onc, thoracic surgery
--- NOTE | 2017-09-23 10:59 | PN ---
Progress Note, Physician History of Present Illness: pulmonary alert,feeling better,comfortable,-resp distress. chest tube drainage 640cc - Current Medication List Current Medications: Active Medications Acetaminophen (Tylenol -) 650 mg PO Q4H PRN PRN Reason: FEVER Last Admin: 09/21/17 09:38 Dose: 650 mg Apixaban (Eliquis -) 2.5 mg PO BID [facility] BEDS [facility] Last Admin: 09/23/17 09:30 Dose: 2.5 mg Ascorbic Acid (Vitamin C -) 500 mg PO DAILY [facility] 234 BEDS [facility] Last Admin: 09/23/17 09:31 Dose: 500 mg Cholecalciferol (Vitamin D3 -) 5,000 unit PO DAILY [facility] 234 BEDS [facility] Last Admin: 09/23/17 09:31 Dose: 5,000 unit Cyanocobalamin (Vitamin B12 -) 1,000 mcg PO DAILY [facility] 234 B[facility]S AT [facility] Last Admin: 09/23/17 09:31 Dose: 1,000 mcg Digoxin (Lanoxin -) 0.125 mg PO DAILY [facility] 234 B[facility]S [facility] Last Admin: 09/23/17 09:30 Dose: 0.125 mg Diltiazem HCl (Cardizem Cd -) 180 mg PO DAILY [facility] 234 B[facility]S [facility] Last Admin: 09/23/17 09:30 Dose: 180 mg Fentanyl (Duragesic 12mcg Patch -) 1 patch TD Q72H [facility] 234 B[facility]S [facility] Stop: 09/25/17 09:27 Last Admin: 09/21/17 09:38 Dose: 1 patch Magnesium Oxide (Mag-Ox -) 400 mg PO BID [facility] 234 B[facility]S [facility] Last Admin: 09/23/17 09:30 Dose: 400 mg Metoprolol Succinate (Toprol Xl -) 25 mg PO DAILY [facility] 234 B[facility]S [facility] Last Admin: 09/23/17 09:30 Dose: 25 mg Miscellaneous (Duragesic Patch Waste) 1 each [facility] PRN PRN PRN Reason: PAIN Pyridoxine HCl (Vitamin B6 -) 50 mg PO DAILY [facility] 234 BEDS [facility] Last Admin: 09/23/17 09:31 Dose: 50 mg Sertraline HCl (Zoloft -) 25 mg PO DAILY [facility] 234 B[facility]S [facility] Last Admin: 09/23/17 09:29 Dose: 25 mg Sucralfate (Carafate Oral Suspension -) 1 gm PO DAILY [facility] 234 [facility]S [facility] Last Admin: 09/23/17 09:31 Dose: 1 gm [facility] To [facility])) [facility] Admin: 09/23/17 09:31 Dose: 200 mg - Objective Vital Signs: Vital Signs Temperature 998 F H 09/23/17 10:00 Pulse Rate 76 09/23/17 10:00 Respiratory Rate 22 09/23/17 10:00 Blood Pressure 130/50 09/23/17 10:00 O2 Sat by Pulse Oximetry (%) 97 09/23/17 09:00 Constitutional: Yes: Calm, Thin Eyes: Yes: WNL HENT: Yes: WNL Neck: Yes: WNL Cardiovascular: Yes: Pulse Irregular, S1, S2 Respiratory: Yes: Diminished Gastrointestinal: Yes: Normal Bowel Sounds, Soft Extremities: Yes: WNL Edema: No Labs: CBC, BMP 09/23/17 06:22 09/23/17 06:22 INR, PTT INR 1.34 (0.83-1.09) 09/08/17 05:40 Problem List - Problems (1) Acute and chronic respiratory failure with hypoxia Code(s): J96.21 - ACUTE AND CHRONIC RESPIRATORY FAILURE WITH HYPOXIA (2) COPD exacerbation Code(s): J44.1 - CHRONIC OBSTRUCTIVE PULMONARY DISEASE W (ACUTE) EXACERBATION (3) Lung cancer Code(s): C34.90 - MALIGNANT NEOPLASM OF UNSP PART OF UNSP BRONCHUS OR LUNG Qualifiers: Laterality: right Lung location: unspecified part of lung Qualified Code( s): C34.91 - Malignant neoplasm of unspecified part of right bronchus or lung (4) Pleural effusion Code(s): J90 - PLEURAL EFFUSION, NOT ELSEWHERE CLASSIFIED (5) Respiratory distress Code(s): R06.03 - ACUTE RESPIRATORY DISTRESS (6) SOB (shortness of breath) Code(s): R06.02 - SHORTNESS OF BREATH (7) Atrial fibrillation Code(s): I48.91 - UNSPECIFIED ATRIAL FIBRILLATION Qualifiers: Atrial fibrillation type: chronic Qualified Code(s): I48.2 - Chronic atrial fibrillation (8) Lung mass Code(s): R91.8 - OTHER NONSPECIFIC ABNORMAL FINDING OF LUNG FIELD (9) PAD (peripheral artery disease) Code(s): I73.9 - PERIPHERAL VASCULAR DISEASE, UNSPECIFIED (10) Pacemaker Code(s): Z95.0 - PRESENCE OF CARDIAC PACEMAKER Assessment/Plan ASSESSMENT AND PLAN: Acute on Chronic Hypoxic Respiratory Failure improving 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
--- NOTE | 2017-09-23 14:54 | PN ---
Progress Note, Physician Chief Complaint: Ms Moncada is pleasantly confused today. Has no complaints but is not answering questions appropriately. - Current Medication List Current Medications: Active Medications Acetaminophen (Tylenol -) 650 mg PO Q4H PRN PRN Reason: FEVER Last Admin: 09/21/17 09:38 Dose: 650 mg Apixaban (Eliquis -) 2.5 mg PO BID [facility] Last Admin: 09/23/17 09:30 Dose: 2.5 mg Ascorbic Acid (Vitamin C -) 500 mg PO DAILY [facility] Last Admin: 09/23/17 09:31 Dose: 500 mg Cholecalciferol (Vitamin D3 -) 5,000 unit PO DAILY [facility] Last Admin: 09/23/17 09:31 Dose: 5,000 unit Cyanocobalamin (Vitamin B12 -) 1,000 mcg PO DAILY [facility] Last Admin: 09/23/17 09:31 Dose: 1,000 mcg Digoxin (Lanoxin -) 0.125 mg PO DAILY [facility] Last Admin: 09/23/17 09:30 Dose: 0.125 mg Diltiazem HCl (Cardizem Cd -) 180 mg PO DAILY [facility] Last Admin: 09/23/17 09:30 Dose: 180 mg Fentanyl (Duragesic 12mcg Patch -) 1 patch TD Q72H [facility] Stop: 09/25/17 09:27 Last Admin: 09/21/17 09:38 Dose: 1 patch Magnesium Oxide (Mag-Ox -) 400 mg PO BID [facility] Last Admin: 09/23/17 09:30 Dose: 400 mg Metoprolol Succinate (Toprol Xl -) 25 mg PO DAILY [facility] Last Admin: 09/23/17 09:30 Dose: 25 mg Miscellaneous (Duragesic Patch Waste) 1 each [facility] PRN PRN PRN Reason: PAIN Pyridoxine HCl (Vitamin B6 -) 50 mg PO DAILY [facility] Last Admin: 09/23/17 09:31 Dose: 50 mg Sertraline HCl (Zoloft -) 25 mg PO DAILY [facility] Last Admin: 09/23/17 09:29 Dose: 25 mg Sucralfate (Carafate Oral Suspension -) 1 gm PO DAILY [facility] Last Admin: 09/23/17 09:31 Dose: 1 gm [facility] Last Admin: 09/23/17 09:31 Dose: 200 mg - Objective Vital Signs: Vital Signs Temperature 536.6 C H 09/23/17 10:00 Pulse Rate 76 09/23/17 10:00 Respiratory Rate 22 09/23/17 10:00 Blood Pressure 130/50 09/23/17 10:00 O2 Sat by Pulse Oximetry (%) 97 09/23/17 09:00 Constitutional: Yes: No Distress, Calm, Thin Cardiovascular: Yes: Regular Rate and Rhythm. No: Gallop, Murmur, Rub Respiratory: Yes: Regular, On Nasal O2, Rhonchi, Other (chest tube in place with continued drainage). No: CTA Bilaterally, Rales, Wheezes Gastrointestinal: Yes: Normal Bowel Sounds, Soft. No: Distention, Tenderness Extremities: Yes: WNL Edema: No Labs: CBC, BMP 09/23/17 06:22 09/23/17 06:22 INR, PTT INR 1.34 (0.83-1.09) 09/08/17 05:40 Problem List - Problems (1) Hyperkalemia Code(s): E87.5 - HYPERKALEMIA (2) Acute and chronic respiratory failure with hypoxia Code(s): J96.21 - ACUTE AND CHRONIC RESPIRATORY FAILURE WITH HYPOXIA (3) Pleural effusion Code(s): J90 - PLEURAL EFFUSION, NOT ELSEWHERE CLASSIFIED (4) COPD exacerbation Code(s): J44.1 - CHRONIC OBSTRUCTIVE PULMONARY DISEASE W (ACUTE) EXACERBATION (5) Lung cancer Code(s): C34.90 - MALIGNANT NEOPLASM OF UNSP PART OF UNSP BRONCHUS OR LUNG Qualifiers: Laterality: right Lung location: unspecified part of lung Qualified Code( s): C34.91 - Malignant neoplasm of unspecified part of right bronchus or lung (6) Atrial fibrillation Code(s): I48.91 - UNSPECIFIED ATRIAL FIBRILLATION Qualifiers: Atrial fibrillation type: chronic Qualified Code(s): I48.2 - Chronic atrial fibrillation (7) CHF (congestive heart failure) Code(s): I50.9 - HEART FAILURE, UNSPECIFIED (8) Hyperlipidemia Code(s): E78.5 - HYPERLIPIDEMIA, UNSPECIFIED (9) Hypertension Code(s): I10 - ESSENTIAL (PRIMARY) HYPERTENSION (10) Pacemaker Code(s): Z95.0 - PRESENCE OF CARDIAC PACEMAKER (11) Pain Code(s): R52 - PAIN, UNSPECIFIED Assessment/Plan (1) Acute and chronic respiratory failure with hypoxia Assessment/Plan: -at baseline Code(s): J96.21 - ACUTE AND CHRONIC RESPIRATORY FAILURE WITH HYPOXIA (2) Pleural effusion Assessment/Plan: -pleurx catheter placed -still with significant amount of drainage Code(s): J90 - PLEURAL EFFUSION, NOT ELSEWHERE CLASSIFIED (3) COPD exacerbation Assessment/Plan: -stable -continue oxygen support -continue inhalers Code(s): J44.1 - CHRONIC OBSTRUCTIVE PULMONARY DISEASE W (ACUTE) EXACERBATION (4) Lung cancer Assessment/Plan: -oncology following -suspect patient would not benefit from chemotherapy -d/w daughter on phone -will have a family meeting with daughter and patient tomorrow to discuss palliative care/hospice Code(s): C34.90 - MALIGNANT NEOPLASM OF UNSP PART OF UNSP BRONCHUS OR LUNG Qualifiers: Laterality: right Lung location: unspecified part of lung Qualified Code( s): C34.91 - Malignant neoplasm of unspecified part of right bronchus or lung (5) Atrial fibrillation Assessment/Plan: -controlled -continue eliquis -continue diltiazem Code(s): I48.91 - UNSPECIFIED ATRIAL FIBRILLATION Qualifiers: Atrial fibrillation type: chronic Qualified Code(s): I48.2 - Chronic atrial fibrillation (6) CHF (congestive heart failure) Assessment/Plan: -continue lasix Code(s): I50.9 - HEART FAILURE, UNSPECIFIED Qualifiers: Qualified Code(s): I50.9 - Heart failure, unspecified (7) Hyperlipidemia Assessment/Plan: -considering overall prognosis, will stop statin Code(s): E78.5 - HYPERLIPIDEMIA, UNSPECIFIED (8) Hypertension Assessment/Plan: -continue diltiazem -controlled Code(s): I10 - ESSENTIAL (PRIMARY) HYPERTENSION (9) Pacemaker Code(s): Z95.0 - PRESENCE OF CARDIAC PACEMAKER (10) Pain -continue fentanyl patch (11) Hyperkalemia -secondary to valsartan -resolved
--- NOTE | 2017-09-23 20:24 | PN ---
Progress Note (short form) - Note Progress Note: Patient seen and examined 12 hour drainage- 350 cc via chest tube Complains of lower back pains with lying in bed Remains tachypneic Lungs with diminished breath sound Cor --paced rhythm Ext- no significant edema CBC, BMP 09/23/17 06:22 09/23/17 06:22 Current Medications Generic Name Dose Route Start Last Admin Trade Name Freq PRN Reason Stop Dose Admin Acetaminophen 650 mg 09/18/17 00:15 09/21/17 09:38 Tylenol - PO 650 mg Q4H PRN Administration FEVER Apixaban 2.5 mg 09/18/17 10:00 09/23/17 09:30 Eliquis - PO 2.5 mg BID [facility] Administration Ascorbic Acid 500 mg 09/18/17 10:00 09/23/17 09:31 Vitamin C - PO 500 mg DAILY [facility] Administration Cholecalciferol 5,000 unit 09/18/17 10:00 09/23/17 09:31 Vitamin D3 - PO 5,000 unit DAILY [facility] Administration Cyanocobalamin 1,000 mcg 09/18/17 10:00 09/23/17 09:31 Vitamin B12 - PO 1,000 mcg DAILY [facility] Administration Digoxin 0.125 mg 09/18/17 10:00 09/23/17 09:30 Lanoxin - PO 0.125 mg DAILY [facility] Administration Diltiazem HCl 180 mg 09/18/17 10:00 09/23/17 09:30 Cardizem Cd - PO 180 mg DAILY [facility] Administration Fentanyl 1 patch 09/18/17 09:30 09/21/17 09:38 Duragesic 12mcg Patch - TD 09/25/17 09:27 1 patch Q72H [facility] Administration Magnesium Oxide 400 mg 09/18/17 10:00 09/23/17 09:30 Mag-Ox - PO 400 mg BID [facility] Administration Metoprolol Succinate 25 mg 09/18/17 10:00 09/23/17 09:30 Toprol Xl - PO 25 mg DAILY [facility] Administration Miscellaneous 1 each 09/18/17 09:27 Duragesic Patch Waste [facility] PRN PRN PAIN Pyridoxine HCl 50 mg 09/18/17 10:00 09/23/17 09:31 Vitamin B6 - PO 50 mg DAILY [facility] Administration Sertraline HCl 25 mg 09/18/17 10:00 09/23/17 09:29 Zoloft - PO 25 mg DAILY [facility] Administration Sucralfate 1 gm 09/18/17 10:00 09/23/17 09:31 Carafate Oral Suspension - PO 1 gm DAILY [facility] Administration Voriconazole 200 mg 09/19/17 18:30 09/23/17 17:35 Vfend (Restricted To Id) PO 200 mg BIDPC [facility] Administration Impression: Poor performance status Clinical deterioration in hospital Continual chest tube drainage Patient may not be a suitable candidate for chemotherapy treatment Will discuss further with family in [place]
[2017-09-23] MEDS: ACETAMINOPHEN 325 MG TABLET (FP) PO PRN (21:27)
[2017-09-24 06:38] LABS: BASO % 0.3 % (0-2.0); EOS % 0.5 % (0-4.5); HEMATOCRIT 33.5 % (32.4-45.2); HEMOGLOBIN 11.2 GM/dL (10.7-15.3); LYMPH % 5.2 % (8-40); MCH 30.1 pg (25.7-33.7); MCHC 33.4 g/dl (32.0-36.0); MEAN CELL VOLUME 90.2 fl (80-96); MEAN PLT VOLUME 8.8 fl (7.5-11.1); MONO % 8.9 % (3.8-10.2); NEUT % 85.1 % (42.8-82.8); PLATELET COUNT 273 K/MM3 (134-434); RBC 3.72 M/mm3 (3.60-5.2); RDW 15.7 % (11.6-15.6)
[2017-09-24 07:14] LABS: ANION GAP 7 (8-16); BLOOD UREA NITROGEN 18 mg/dL (7-18); CALCIUM 8.8 mg/dL (8.5-10.1); CHLORIDE 84 mmol/L (98-107); CO2 40 mmol/L (21-32); CREATININE 0.7 mg/dL (0.55-1.02); GLUCOSE,RANDOM 85 mg/dL (74-106); MAGNESIUM 2.1 mg/dL (1.8-2.4); PHOSPHOROUS 2.8 mg/dL (2.5-4.9); SODIUM 131 mmol/L (136-145)
[2017-09-24] MEDS ORDERED: PT OWN MED DRAWER 7, Y5N ONE (09:36)
[2017-09-24] MEDS: VORICONAZOLE 200 MG TABLET (RESTRICTED TO ID) PO SCH (09:45)
[2017-09-24] MEDS: APIXABAN 2.5 MG TABLET PO SCH ×2 (10:03→21:29)
[2017-09-24] MEDS: CHOLECALCIFEROL (VITAMIN D3) 1,000 UNIT TABLET (FP) PO SCH (10:03)
[2017-09-24] MEDS: CYANOCOBALAMIN 1,000 MCG TABLET (FP) PO SCH (10:03)
[2017-09-24] MEDS: ASCORBIC ACID 500 MG TABLET (FP) PO SCH (10:03)
[2017-09-24] MEDS: MAGNESIUM OXIDE 400 MG TABLET (FP) PO SCH ×2 (10:03→21:29)
[2017-09-24] MEDS: SERTRALINE HCL 25 MG TABLET (FP) PO SCH (10:04)
[2017-09-24] MEDS: metoPROLOL SUCCINATE 25 MG TAB.SR.24H (FP) PO SCH (10:04)
[2017-09-24] MEDS: SUCRALFATE 1 GM/10 ML UNIT DOSE CUPS PO SCH (10:04)
[2017-09-24] MEDS: PYRIDOXINE HCL (B-6) 50 MG TABLET (FP) PO SCH (10:06)
[2017-09-24] MEDS: fentaNYL 12mcg/hr PATCH.TD72 TD SCH (10:12)
--- NOTE | 2017-09-24 10:56 | PN ---
Progress Note (short form) - Note Progress Note: s: no cp, palps, edema, dizzy sob Current Medications Generic Name Dose Route Start Last Admin Trade Name Freq PRN Reason Stop Dose Admin Acetaminophen 650 mg 09/18/17 00:15 09/23/17 21:27 Tylenol - PO 650 mg Q4H PRN Administration FEVER Apixaban 2.5 mg 09/18/17 10:00 09/24/17 10:03 Eliquis - PO 2.5 mg BID [facility] Administration Ascorbic Acid 500 mg 09/18/17 10:00 09/24/17 10:03 Vitamin C - PO 500 mg DAILY [facility] Administration Cholecalciferol 5,000 unit 09/18/17 10:00 09/24/17 10:03 Vitamin D3 - PO 5,000 unit DAILY [facility] Administration Cyanocobalamin 1,000 mcg 09/18/17 10:00 09/24/17 10:03 Vitamin B12 - PO 1,000 mcg DAILY [facility] Administration Digoxin 0.125 mg 09/18/17 10:00 09/23/17 09:30 Lanoxin - PO 0.125 mg DAILY [facility] Administration Diltiazem HCl 180 mg 09/18/17 10:00 09/24/17 10:04 Cardizem Cd - PO 180 mg DAILY [facility] Administration Fentanyl 1 patch 09/18/17 09:30 09/24/17 10:12 Duragesic 12mcg Patch - TD 09/25/17 09:27 1 patch Q72H [facility] Administration Magnesium Oxide 400 mg 09/18/17 10:00 09/24/17 10:03 Mag-Ox - PO 400 mg BID [facility] Administration Metoprolol Succinate 25 mg 09/18/17 10:00 09/24/17 10:04 Toprol Xl - PO 25 mg DAILY [facility] Administration Miscellaneous 1 each 09/18/17 09:27 Duragesic Patch Waste [facility] PRN PRN PAIN Pyridoxine HCl 50 mg 09/18/17 10:00 09/24/17 10:06 Vitamin B6 - PO 50 mg DAILY [facility] Administration Sertraline HCl 25 mg 09/18/17 10:00 09/24/17 10:04 Zoloft - PO 25 mg DAILY [facility] Administration Sucralfate 1 gm 09/18/17 10:00 09/24/17 10:04 Carafate Oral Suspension - PO 1 gm DAILY [facility] Administration Voriconazole 200 mg 09/19/17 18:30 09/24/17 09:45 Vfend (Restricted To Id) PO 200 mg BIDPC [facility] Administration - Objective Vital Signs: Vital Signs Period Temp Pulse Resp BP Sys/Wahl Pulse Ox Last 24 Hr 98.0 F-98.1 F 64-74 18-22 117-132/52-62 96-100 Constitutional: Yes: Well Nourished, No Distress, Calm Cardiovascular: Yes: Regular Rate and Rhythm, S1, S2. No: JVD, Gallop, Murmur Respiratory: Yes: Regular, CTA Bilaterally (absent bases). No: Accessory Muscle Use, Rales, Wheezes Extremities: No: Cold Edema: No Neurological: Yes: Alert, Oriented Psychiatric: No: Agitated no jaundice diaphoresis CBC, BMP 09/24/17 05:00 09/24/17 05:00 MIBI 05/21 (dobut): no STs, minimal apical isch vs variable brst (small LV/hyper EF) Echo 05/2016 (): tds; nl lv, nl rv size, mild , mild mr, mild-mod tr; rvsp 40-50, mod ao root dil EKG 09/08/17 V paced tele: vp biology Assessment/Plan 81 f hx afib, htn, hld, tachy/maricruz syndrome s/p ppm, copd, pad s/p rle bypass, possible cad (equivocal MIBI), chronic sob/briones/palps likely related to anxiety, esophageal ca s/p laser treatment, neuroendocrine small cell carcinoma of lung p /w shortness of breath now s/p VATS and pleur-x catheter placement with hypotension Hyperkalemia - K improved - monitoring on tele, no events - dc telemetry - ARB dc'ed for hyperkalemia Htn: -controlled on current meds, continue - valsartan dc'ed for hyperkalemia s/p PPM - last interrogated 07/2017 stable function Afib - dig, dilt, eliquis at home, continue - rates stable CAD - hx equivocal stress - on arb, statin at home, continue h/o HFPEF - euvolemic, urinary incontinence, holding lasix for now - resume lasix at 20 qod on hosp discharge. PAD s/p bypass - continue ARB, statin lung cancer/malign effusion s/p VATS - per pulm, onc, thoracic surgery
[2017-09-24] MEDS: DIGOXIN 0.125 MG TABLET (FP) PO SCH (11:12)
--- NOTE | 2017-09-24 11:30 | PN ---
Progress Note, Physician Chief Complaint: Ms Moncada says her pain is controlled. No cp, sob, n/v. States wants to go home soon. - Current Medication List Current Medications: Active Medications Acetaminophen (Tylenol -) 650 mg PO Q4H PRN PRN Reason: FEVER Last Admin: 09/23/17 21:27 Dose: 650 mg Apixaban (Eliquis -) 2.5 mg PO BID [facility] Last Admin: 09/24/17 10:03 Dose: 2.5 mg Ascorbic Acid (Vitamin C -) 500 mg PO DAILY [facility] Last Admin: 09/24/17 10:03 Dose: 500 mg Cholecalciferol (Vitamin D3 -) 5,000 unit PO DAILY [facility] Last Admin: 09/24/17 10:03 Dose: 5,000 unit Cyanocobalamin (Vitamin B12 -) 1,000 mcg PO DAILY [facility] Last Admin: 09/24/17 10:03 Dose: 1,000 mcg Digoxin (Lanoxin -) 0.125 mg PO DAILY [facility] Last Admin: 09/24/17 11:12 Dose: 0.125 mg Diltiazem HCl (Cardizem Cd -) 180 mg PO DAILY [facility] Last Admin: 09/24/17 10:04 Dose: 180 mg Fentanyl (Duragesic 12mcg Patch -) 1 patch TD Q72H [facility] Stop: 09/25/17 09:27 Last Admin: 09/24/17 10:12 Dose: 1 patch Magnesium Oxide (Mag-Ox -) 400 mg PO BID [facility] Last Admin: 09/24/17 10:03 Dose: 400 mg Metoprolol Succinate (Toprol Xl -) 25 mg PO DAILY [facility] Last Admin: 09/24/17 10:04 Dose: 25 mg Miscellaneous (Duragesic Patch Waste) 1 each [facility] PRN PRN PRN Reason: PAIN Pyridoxine HCl (Vitamin B6 -) 50 mg PO DAILY [facility] Last Admin: 09/24/17 10:06 Dose: 50 mg Sertraline HCl (Zoloft -) 25 mg PO DAILY [facility] Last Admin: 09/24/17 10:04 Dose: 25 mg Sucralfate (Carafate Oral Suspension -) 1 gm PO DAILY [facility] Last Admin: 09/24/17 10:04 Dose: 1 gm - Objective Vital Signs: Vital Signs Temperature 36.7 C 09/24/17 06:00 Pulse Rate 68 09/24/17 11:12 Respiratory Rate 20 09/24/17 06:00 Blood Pressure 132/54 09/24/17 06:00 O2 Sat by Pulse Oximetry (%) 100 09/24/17 06:00 Constitutional: Yes: No Distress, Calm, Thin Cardiovascular: Yes: Pulse Irregular. No: Tachycardia, Gallop, Murmur, Rub Respiratory: Yes: Regular, On Nasal O2, Rhonchi, Other (chest tube in place with significant drainage). No: CTA Bilaterally, Rales, Wheezes Gastrointestinal: Yes: Normal Bowel Sounds, Soft. No: Distention, Tenderness Extremities: Yes: WNL Edema: No Labs: CBC, BMP 09/24/17 05:00 09/24/17 05:00 INR, PTT INR 1.34 (0.83-1.09) 09/08/17 05:40 Problem List - Problems (1) Hyperkalemia Code(s): E87.5 - HYPERKALEMIA (2) Acute and chronic respiratory failure with hypoxia Code(s): J96.21 - ACUTE AND CHRONIC RESPIRATORY FAILURE WITH HYPOXIA (3) Pleural effusion Code(s): J90 - PLEURAL EFFUSION, NOT ELSEWHERE CLASSIFIED (4) COPD exacerbation Code(s): J44.1 - CHRONIC OBSTRUCTIVE PULMONARY DISEASE W (ACUTE) EXACERBATION (5) Lung cancer Code(s): C34.90 - MALIGNANT NEOPLASM OF UNSP PART OF UNSP BRONCHUS OR LUNG Qualifiers: Laterality: right Lung location: unspecified part of lung Qualified Code( s): C34.91 - Malignant neoplasm of unspecified part of right bronchus or lung (6) Atrial fibrillation Code(s): I48.91 - UNSPECIFIED ATRIAL FIBRILLATION Qualifiers: Atrial fibrillation type: chronic Qualified Code(s): I48.2 - Chronic atrial fibrillation (7) CHF (congestive heart failure) Code(s): I50.9 - HEART FAILURE, UNSPECIFIED (8) Hyperlipidemia Code(s): E78.5 - HYPERLIPIDEMIA, UNSPECIFIED (9) Hypertension Code(s): I10 - ESSENTIAL (PRIMARY) HYPERTENSION (10) Pacemaker Code(s): Z95.0 - PRESENCE OF CARDIAC PACEMAKER (11) Pain Code(s): R52 - PAIN, UNSPECIFIED Assessment/Plan (1) Acute and chronic respiratory failure with hypoxia Assessment/Plan: -at baseline Code(s): J96.21 - ACUTE AND CHRONIC RESPIRATORY FAILURE WITH HYPOXIA (2) Pleural effusion Assessment/Plan: -pleurx catheter placed -still with significant amount of drainage Code(s): J90 - PLEURAL EFFUSION, NOT ELSEWHERE CLASSIFIED (3) COPD exacerbation Assessment/Plan: -stable -continue oxygen support -continue inhalers Code(s): J44.1 - CHRONIC OBSTRUCTIVE PULMONARY DISEASE W (ACUTE) EXACERBATION (4) Lung cancer Assessment/Plan: -not a candidate for chemotherapy -patient and daughter interested in [place] -palliative care made aware Code(s): C34.90 - MALIGNANT NEOPLASM OF UNSP PART OF UNSP BRONCHUS OR LUNG Qualifiers: Laterality: right Lung location: unspecified part of lung Qualified Code( s): C34.91 - Malignant neoplasm of unspecified part of right bronchus or lung (5) Atrial fibrillation Assessment/Plan: -controlled -continue eliquis -continue diltiazem Code(s): I48.91 - UNSPECIFIED ATRIAL FIBRILLATION Qualifiers: Atrial fibrillation type: chronic Qualified Code(s): I48.2 - Chronic atrial fibrillation (6) CHF (congestive heart failure) Assessment/Plan: -continue lasix Code(s): I50.9 - HEART FAILURE, UNSPECIFIED Qualifiers: Qualified Code(s): I50.9 - Heart failure, unspecified (7) Hyperlipidemia Assessment/Plan: -considering overall prognosis, will stop statin Code(s): E78.5 - HYPERLIPIDEMIA, UNSPECIFIED (8) Hypertension Assessment/Plan: -continue diltiazem -controlled Code(s): I10 - ESSENTIAL (PRIMARY) HYPERTENSION (9) Pacemaker Code(s): Z95.0 - PRESENCE OF CARDIAC PACEMAKER (10) Pain -continue fentanyl patch (11) Hyperkalemia -secondary to valsartan -resolved Dispo -transfer to med/surg floor -evaluation for [facility]
--- NOTE | 2017-09-24 13:15 | PN ---
Progress Note (short form) - Note Progress Note: PULMONARY More short of breath today. c/o significant back pain. chest tube draining >1L last 24hrs. Vital Signs Period Temp Pulse Resp BP Sys/Wahl Pulse Ox Last 24 Hr 98.0 F-98.1 F 64-74 18-22 117-132/52-62 96-100 Gen: more tachypneic Heart: RRR Lung: decreased breath sounds right base Abd: soft, nontender Ext: no edema CBC, BMP 09/24/17 05:00 09/24/17 05:00 Active Medications Acetaminophen (Tylenol -) 650 mg PO Q4H PRN PRN Reason: FEVER Last Admin: 09/23/17 21:27 Dose: 650 mg Apixaban (Eliquis -) 2.5 mg PO BID [facility] Last Admin: 09/24/17 10:03 Dose: 2.5 mg Ascorbic Acid (Vitamin C -) 500 mg PO DAILY [facility] Last Admin: 09/24/17 10:03 Dose: 500 mg Cholecalciferol (Vitamin D3 -) 5,000 unit PO DAILY [facility] Last Admin: 09/24/17 10:03 Dose: 5,000 unit Cyanocobalamin (Vitamin B12 -) 1,000 mcg PO DAILY [facility] Last Admin: 09/24/17 10:03 Dose: 1,000 mcg Digoxin (Lanoxin -) 0.125 mg PO DAILY [facility] Last Admin: 09/24/17 11:12 Dose: 0.125 mg Diltiazem HCl (Cardizem Cd -) 180 mg PO DAILY [facility] Last Admin: 09/24/17 10:04 Dose: 180 mg Fentanyl (Duragesic 12mcg Patch -) 1 patch TD Q72H [facility] Stop: 09/25/17 09:27 Last Admin: 09/24/17 10:12 Dose: 1 patch Magnesium Oxide (Mag-Ox -) 400 mg PO BID [facility] Last Admin: 09/24/17 10:03 Dose: 400 mg Metoprolol Succinate (Toprol Xl -) 25 mg PO DAILY [facility] Last Admin: 09/24/17 10:04 Dose: 25 mg Miscellaneous (Duragesic Patch Waste) 1 each [facility] PRN PRN PRN Reason: PAIN Morphine Sulfate (Morphine Injection -) 2 mg IVPUSH Q3H PRN PRN Reason: PAIN LEVEL 6-10 Pyridoxine HCl (Vitamin B6 -) 50 mg PO DAILY [facility] Last Admin: 09/24/17 10:06 Dose: 50 mg Sertraline HCl (Zoloft -) 25 mg PO DAILY [facility] Last Admin: 09/24/17 10:04 Dose: 25 mg Sucralfate (Carafate Oral Suspension -) 1 gm PO DAILY [facility] Last Admin: 09/24/17 10:04 Dose: 1 gm A/P Acute on Chronic Hypoxic Respiratory Failure 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
[2017-09-24] MEDS: MORPHINE SULFATE 2 MG/ML VIAL IVPUSH PRN (14:11)
[2017-09-25] MEDS: MORPHINE SULFATE 2 MG/ML VIAL IVPUSH PRN ×2 (01:50→08:09)
[2017-09-25 06:31] LABS: BASO % 0.2 % (0-2.0); EOS % 0.2 % (0-4.5); HEMATOCRIT 34.8 % (32.4-45.2); HEMOGLOBIN 11.8 GM/dL (10.7-15.3); LYMPH % 3.1 % (8-40); MCH 30.5 pg (25.7-33.7); MCHC 33.9 g/dl (32.0-36.0); MEAN CELL VOLUME 89.9 fl (80-96); MEAN PLT VOLUME 8.5 fl (7.5-11.1); MONO % 7.3 % (3.8-10.2); NEUT % 89.2 % (42.8-82.8); PLATELET COUNT 308 K/MM3 (134-434); RBC 3.86 M/mm3 (3.60-5.2); WHITE BLOOD COUNT 14.5 K/mm3 (4.0-10.0)
[2017-09-25 06:57] LABS: ANION GAP 5 (8-16); BLOOD UREA NITROGEN 15 mg/dL (7-18); CALCIUM 8.6 mg/dL (8.5-10.1); CHLORIDE 85 mmol/L (98-107); CO2 41 mmol/L (21-32); CREATININE 0.7 mg/dL (0.55-1.02); GLUCOSE,RANDOM 102 mg/dL (74-106); MAGNESIUM 2.1 mg/dL (1.8-2.4); PHOSPHOROUS 2.3 mg/dL (2.5-4.9); POTASSIUM 4.8 mmol/L (3.5-5.1); SODIUM 131 mmol/L (136-145)
--- NOTE | 2017-09-25 09:16 | PN ---
Progress Note (short form) - Note Progress Note: Patient seen and examined Remains dyspneic and tachypneic Continued drainage via chest tube Last Vital Signs Temp Pulse Resp BP Pulse Ox 97.7 F 82 24 132/62 93 L 09/25/17 06:00 09/25/17 06:00 09/25/17 06:00 09/25/17 06:00 09/24/17 21:00 HEENT: JANNETH, EOM Intact Oropharynx: No thrush, No mucositis,dentures Cor: paced Lungs: diminished breath sounds bilaterally Abd: Soft, Normal bowel sounds, No organomegaly Ext:No significant edema Skin: No rashes, Integument intact CBC, BMP 09/25/17 05:30 09/25/17 05:30 Current Medications Generic Name Dose Route Start Last Admin Trade Name Freq PRN Reason Stop Dose Admin Acetaminophen 650 mg 09/18/17 00:15 09/23/17 21:27 Tylenol - PO 650 mg Q4H PRN Administration FEVER Apixaban 2.5 mg 09/18/17 10:00 09/24/17 21:29 Eliquis - PO 2.5 mg BID [facility] Administration Ascorbic Acid 500 mg 09/18/17 10:00 09/24/17 10:03 Vitamin C - PO 500 mg DAILY [facility] Administration Cholecalciferol 5,000 unit 09/18/17 10:00 09/24/17 10:03 Vitamin D3 - PO 5,000 unit DAILY [facility] Administration Cyanocobalamin 1,000 mcg 09/18/17 10:00 09/24/17 10:03 Vitamin B12 - PO 1,000 mcg DAILY [facility] Administration Digoxin 0.125 mg 09/18/17 10:00 09/24/17 11:12 Lanoxin - PO 0.125 mg DAILY [facility] Administration Diltiazem HCl 180 mg 09/18/17 10:00 09/24/17 10:04 Cardizem Cd - PO 180 mg DAILY [facility] Administration Fentanyl 1 patch 09/18/17 09:30 09/24/17 10:12 Duragesic 12mcg Patch - TD 09/25/17 09:27 1 patch Q72H [facility] Administration Magnesium Oxide 400 mg 09/18/17 10:00 09/24/17 21:29 Mag-Ox - PO 400 mg BID [facility] Administration Metoprolol Succinate 25 mg 09/18/17 10:00 09/24/17 10:04 Toprol Xl - PO 25 mg DAILY [facility] Administration Miscellaneous 1 each 09/18/17 09:27 Duragesic Patch Waste MC PRN PRN PAIN Morphine Sulfate 2 mg 09/24/17 14:07 09/25/17 08:09 Morphine Sulfate IVPUSH 2 mg Q3H PRN Administration PAIN LEVEL 6-10 Pyridoxine HCl 50 mg 09/18/17 10:00 09/24/17 10:06 Vitamin B6 - PO 50 mg DAILY [facility] Administration Sertraline HCl 25 mg 09/18/17 10:00 09/24/17 10:04 Zoloft - PO 25 mg DAILY [facility] Administration Sucralfate 1 gm 09/18/17 10:00 09/24/17 10:04 Carafate Oral Suspension - PO 1 gm DAILY [facility] Administration Impression Discussed with daughter at bedside Patients performance status is not suitable for treatment with chemotherapy. Would consider palliative care and comfort care Problem List - Problems (1) Acute and chronic respiratory failure with hypoxia Code(s): J96.21 - ACUTE AND CHRONIC RESPIRATORY FAILURE WITH HYPOXIA (2) COPD exacerbation Code(s): J44.1 - CHRONIC OBSTRUCTIVE PULMONARY DISEASE W (ACUTE) EXACERBATION (3) Lung cancer Code(s): C34.90 - MALIGNANT NEOPLASM OF UNSP PART OF UNSP BRONCHUS OR LUNG Qualifiers: Laterality: right Lung location: unspecified part of lung Qualified Code( s): C34.91 - Malignant neoplasm of unspecified part of right bronchus or lung (4) Malignant pleural effusion Code(s): J91.0 - MALIGNANT PLEURAL EFFUSION (5) Small cell carcinoma Code(s): C80.1 - MALIGNANT (PRIMARY) NEOPLASM, UNSPECIFIED (6) Atrial fibrillation Code(s): I48.91 - UNSPECIFIED ATRIAL FIBRILLATION Qualifiers: Atrial fibrillation type: chronic Qualified Code(s): I48.2 - Chronic atrial fibrillation (7) Failure to thrive in adult Code(s): R62.7 - ADULT FAILURE TO THRIVE
[2017-09-25] MEDS: SUCRALFATE 1 GM/10 ML UNIT DOSE CUPS PO SCH (10:43)
[2017-09-25] MEDS: APIXABAN 2.5 MG TABLET PO SCH ×2 (10:44→22:18)
[2017-09-25] MEDS: DIGOXIN 0.125 MG TABLET (FP) PO SCH (10:44)
[2017-09-25] MEDS: CHOLECALCIFEROL (VITAMIN D3) 1,000 UNIT TABLET (FP) PO SCH (10:45)
[2017-09-25] MEDS: MAGNESIUM OXIDE 400 MG TABLET (FP) PO SCH (10:45)
[2017-09-25] MEDS: CYANOCOBALAMIN 1,000 MCG TABLET (FP) PO SCH (10:45)
[2017-09-25] MEDS: metoPROLOL SUCCINATE 25 MG TAB.SR.24H (FP) PO SCH (10:45)
[2017-09-25] MEDS: ASCORBIC ACID 500 MG TABLET (FP) PO SCH (10:46)
[2017-09-25] MEDS: SERTRALINE HCL 25 MG TABLET (FP) PO SCH (10:46)
[2017-09-25] MEDS ORDERED: PT OWN MED DRAWER 7, Y5N ONE (10:51)
[2017-09-25] MEDS: PYRIDOXINE HCL (B-6) 50 MG TABLET (FP) PO SCH (10:51)
--- NOTE | 2017-09-25 11:25 | PN ---
Progress Note (short form) - Note Progress Note: s: no cp, palps, edema, dizzy sob Current Medications Generic Name Dose Route Start Last Admin Trade Name Freq PRN Reason Stop Dose Admin Acetaminophen 650 mg 09/18/17 00:15 09/23/17 21:27 Tylenol - PO 650 mg Q4H PRN Administration FEVER Apixaban 2.5 mg 09/18/17 10:00 09/25/17 10:44 Eliquis - PO 2.5 mg BID REBECCA Administration Ascorbic Acid 500 mg 09/18/17 10:00 09/25/17 10:46 Vitamin C - PO 500 mg DAILY REBECCA Administration Cholecalciferol 5,000 unit 09/18/17 10:00 09/25/17 10:45 Vitamin D3 - PO 5,000 unit DAILY REBECCA Administration Cyanocobalamin 1,000 mcg 09/18/17 10:00 09/25/17 10:45 Vitamin B12 - PO 1,000 mcg DAILY REBECCA Administration Digoxin 0.125 mg 09/18/17 10:00 09/25/17 10:44 Lanoxin - PO 0.125 mg DAILY REBECCA Administration Diltiazem HCl 180 mg 09/18/17 10:00 09/25/17 10:43 Cardizem Cd - PO 180 mg DAILY REBECCA Administration Magnesium Oxide 400 mg 09/18/17 10:00 09/25/17 10:45 Mag-Ox - PO 400 mg BID REBECCA Administration Metoprolol Succinate 25 mg 09/18/17 10:00 09/25/17 10:45 Toprol Xl - PO 25 mg DAILY REBECCA Administration Morphine Sulfate 2 mg 09/24/17 14:07 09/25/17 08:09 Morphine Sulfate IVPUSH 2 mg Q3H PRN Administration PAIN LEVEL 6-10 Pyridoxine HCl 50 mg 09/18/17 10:00 09/25/17 10:51 Vitamin B6 - PO 50 mg DAILY REBECCA Administration Sertraline HCl 25 mg 09/18/17 10:00 09/25/17 10:46 Zoloft - PO 25 mg DAILY REBECCA Administration Sucralfate 1 gm 09/18/17 10:00 09/25/17 10:43 Carafate Oral Suspension - PO 1 gm DAILY REBECCA Administration - Objective Vital Signs: Vital Signs Period Temp Pulse Resp BP Sys/Wahl Pulse Ox Last 24 Hr 97.0 F-98.8 F 69-87 18-24 128-140/50-62 92-94 Constitutional: Yes: Well Nourished, No Distress, Calm Cardiovascular: Yes: Regular Rate and Rhythm, S1, S2. No: JVD, Gallop, Murmur Respiratory: Yes: Regular, CTA Bilaterally (absent bases). No: Accessory Muscle Use, Rales, Wheezes Extremities: No: Cold Edema: No Neurological: Yes: Alert, Oriented Psychiatric: No: Agitated no jaundice diaphoresis CBC, BMP 09/25/17 05:30 09/25/17 05:30 MIBI 05/21 ([facility]): no STs, minimal apical isch vs variable brst (small LV/hyper EF) Echo 05/2016 ([facility]): tds; nl lv, nl rv size, mild , mild mr, mild-mod tr; rvsp 40-50, mod ao root dil EKG 09/08/17 V paced tele: vp respiratory Assessment/Plan 81 f hx afib, htn, hld, tachy/maricruz syndrome s/p ppm, copd, pad s/p rle bypass, possible cad (equivocal MIBI), chronic sob/briones/palps likely related to anxiety, esophageal ca s/p laser treatment, neuroendocrine small cell carcinoma of lung p /w shortness of breath now s/p VATS and pleur-x catheter placement with hypotension Hyperkalemia - K improved - monitoring on tele, no events - dc telemetry - ARB dc'ed for hyperkalemia Htn: -controlled on current meds, continue - valsartan dc'ed for hyperkalemia s/p PPM - last interrogated 07/2017 stable function Afib - dig, dilt, eliquis at home, continue - rates stable CAD - hx equivocal stress - on arb, statin at home, continue h/o HFPEF - euvolemic, urinary incontinence, holding lasix for now PAD s/p bypass - continue ARB, statin lung cancer/malign effusion s/p VATS - per pulm, onc, thoracic surgery
--- NOTE | 2017-09-25 11:47 | PN ---
Progress Note, Physician Chief Complaint: Ms Moncada very confused today - Current Medication List Current Medications: Active Medications Acetaminophen (Tylenol -) 650 mg PO Q4H PRN PRN Reason: FEVER Last Admin: 09/23/17 21:27 Dose: 650 mg Apixaban (Eliquis -) 2.5 mg PO BID [facility] Last Admin: 09/25/17 10:44 Dose: 2.5 mg Ascorbic Acid (Vitamin C -) 500 mg PO DAILY [facility] Last Admin: 09/25/17 10:46 Dose: 500 mg Cholecalciferol (Vitamin D3 -) 5,000 unit PO DAILY [facility] Last Admin: 09/25/17 10:45 Dose: 5,000 unit Cyanocobalamin (Vitamin B12 -) 1,000 mcg PO DAILY [facility] Last Admin: 09/25/17 10:45 Dose: 1,000 mcg Digoxin (Lanoxin -) 0.125 mg PO DAILY [facility] Last Admin: 09/25/17 10:44 Dose: 0.125 mg Diltiazem HCl (Cardizem Cd -) 180 mg PO DAILY [facility] Last Admin: 09/25/17 10:43 Dose: 180 mg Magnesium Oxide (Mag-Ox -) 400 mg PO BID [facility] Last Admin: 09/25/17 10:45 Dose: 400 mg Metoprolol Succinate (Toprol Xl -) 25 mg PO DAILY [facility] Last Admin: 09/25/17 10:45 Dose: 25 mg Morphine Sulfate (Morphine Sulfate) 2 mg IVPUSH Q3H PRN PRN Reason: PAIN LEVEL 6-10 Last Admin: 09/25/17 08:09 Dose: 2 mg Pyridoxine HCl (Vitamin B6 -) 50 mg PO DAILY [facility] Last Admin: 09/25/17 10:51 Dose: 50 mg Sertraline HCl (Zoloft -) 25 mg PO DAILY [facility] Last Admin: 09/25/17 10:46 Dose: 25 mg Sucralfate (Carafate Oral Suspension -) 1 gm PO DAILY [facility] Last Admin: 09/25/17 10:43 Dose: 1 gm - Objective Vital Signs: Vital Signs Temperature 36.5 C 09/25/17 06:00 Pulse Rate 72 09/25/17 10:44 Respiratory Rate 24 09/25/17 06:00 Blood Pressure 132/62 09/25/17 06:00 O2 Sat by Pulse Oximetry (%) 93 L 09/24/17 21:00 Constitutional: Yes: No Distress, Calm, Thin Cardiovascular: Yes: Pulse Irregular. No: Tachycardia, Gallop, Murmur, Rub Respiratory: Yes: Regular, On Nasal O2, Rhonchi, Other (chest tube in place, continued drainage). No: CTA Bilaterally, Rales, Tachypnea, Wheezes Gastrointestinal: Yes: Normal Bowel Sounds, Soft. No: Distention, Tenderness Extremities: Yes: WNL Edema: No Labs: CBC, BMP 09/25/17 05:30 09/25/17 05:30 INR, PTT INR 1.34 (0.83-1.09) 09/08/17 05:40 Problem List - Problems (1) Hyperkalemia Code(s): E87.5 - HYPERKALEMIA (2) Acute and chronic respiratory failure with hypoxia Code(s): J96.21 - ACUTE AND CHRONIC RESPIRATORY FAILURE WITH HYPOXIA (3) Pleural effusion Code(s): J90 - PLEURAL EFFUSION, NOT ELSEWHERE CLASSIFIED (4) COPD exacerbation Code(s): J44.1 - CHRONIC OBSTRUCTIVE PULMONARY DISEASE W (ACUTE) EXACERBATION (5) Lung cancer Code(s): C34.90 - MALIGNANT NEOPLASM OF UNSP PART OF UNSP BRONCHUS OR LUNG Qualifiers: Laterality: right Lung location: unspecified part of lung Qualified Code( s): C34.91 - Malignant neoplasm of unspecified part of right bronchus or lung (6) Atrial fibrillation Code(s): I48.91 - UNSPECIFIED ATRIAL FIBRILLATION Qualifiers: Atrial fibrillation type: chronic Qualified Code(s): I48.2 - Chronic atrial fibrillation (7) CHF (congestive heart failure) Code(s): I50.9 - HEART FAILURE, UNSPECIFIED (8) Hyperlipidemia Code(s): E78.5 - HYPERLIPIDEMIA, UNSPECIFIED (9) Hypertension Code(s): I10 - ESSENTIAL (PRIMARY) HYPERTENSION (10) Pacemaker Code(s): Z95.0 - PRESENCE OF CARDIAC PACEMAKER (11) Pain Code(s): R52 - PAIN, UNSPECIFIED Assessment/Plan (1) Acute and chronic respiratory failure with hypoxia Assessment/Plan: -at baseline Code(s): J96.21 - ACUTE AND CHRONIC RESPIRATORY FAILURE WITH HYPOXIA (2) Pleural effusion Assessment/Plan: -pleurx catheter placed -still with significant amount of drainage Code(s): J90 - PLEURAL EFFUSION, NOT ELSEWHERE CLASSIFIED (3) COPD exacerbation Assessment/Plan: -stable -continue oxygen support -continue inhalers Code(s): J44.1 - CHRONIC OBSTRUCTIVE PULMONARY DISEASE W (ACUTE) EXACERBATION (4) Lung cancer Assessment/Plan: -plan for transfer to [place] Code(s): C34.90 - MALIGNANT NEOPLASM OF UNSP PART OF UNSP BRONCHUS OR LUNG Qualifiers: Laterality: right Lung location: unspecified part of lung Qualified Code( s): C34.91 - Malignant neoplasm of unspecified part of right bronchus or lung (5) Atrial fibrillation Assessment/Plan: -controlled -continue eliquis -continue diltiazem Code(s): I48.91 - UNSPECIFIED ATRIAL FIBRILLATION Qualifiers: Atrial fibrillation type: chronic Qualified Code(s): I48.2 - Chronic atrial fibrillation (6) CHF (congestive heart failure) Assessment/Plan: -continue lasix Code(s): I50.9 - HEART FAILURE, UNSPECIFIED Qualifiers: Qualified Code(s): I50.9 - Heart failure, unspecified (7) Hyperlipidemia Assessment/Plan: -statin discontinued Code(s): E78.5 - HYPERLIPIDEMIA, UNSPECIFIED (8) Hypertension Assessment/Plan: -continue diltiazem -controlled Code(s): I10 - ESSENTIAL (PRIMARY) HYPERTENSION (9) Pacemaker Code(s): Z95.0 - PRESENCE OF CARDIAC PACEMAKER (10) Pain -continue fentanyl patch (11) Hyperkalemia -secondary to valsartan -resolved Dispo -transfer to [place] when bed available -will simplify medications
--- NOTE | 2017-09-25 13:11 | PN ---
Progress Note (short form) - Note Progress Note: PULMONARY Remains short of breath appears mildly agitated Gen: more tachypneic Heart: RRR Lung: decreased breath sounds right base/drainage tube in place Abd: soft, nontender Ext: no edema meds/labs/images/notes reviewed Acetaminophen (Tylenol -) 650 mg PO Q4H PRN PRN Reason: FEVER Last Admin: 09/23/17 21:27 Dose: 650 mg Apixaban (Eliquis -) 2.5 mg PO BID [facility] Last Admin: 09/24/17 10:03 Dose: 2.5 mg Ascorbic Acid (Vitamin C -) 500 mg PO DAILY [facility] Last Admin: 09/24/17 10:03 Dose: 500 mg Cholecalciferol (Vitamin D3 -) 5,000 unit PO DAILY [facility] Last Admin: 09/24/17 10:03 Dose: 5,000 unit Cyanocobalamin (Vitamin B12 -) 1,000 mcg PO DAILY [facility] Last Admin: 09/24/17 10:03 Dose: 1,000 mcg Digoxin (Lanoxin -) 0.125 mg PO DAILY [facility] Last Admin: 09/24/17 11:12 Dose: 0.125 mg Diltiazem HCl (Cardizem Cd -) 180 mg PO DAILY [facility] Last Admin: 09/24/17 10:04 Dose: 180 mg Fentanyl (Duragesic 12mcg Patch -) 1 patch TD Q72H [facility] Stop: 09/25/17 09:27 Last Admin: 09/24/17 10:12 Dose: 1 patch Magnesium Oxide (Mag-Ox -) 400 mg PO BID [facility] Last Admin: 09/24/17 10:03 Dose: 400 mg Metoprolol Succinate (Toprol Xl -) 25 mg PO DAILY [facility] Last Admin: 09/24/17 10:04 Dose: 25 mg Miscellaneous (Duragesic Patch Waste) 1 each [facility] PRN PRN PRN Reason: PAIN Morphine Sulfate (Morphine Injection -) 2 mg IVPUSH Q3H PRN PRN Reason: PAIN LEVEL 6-10 Pyridoxine HCl (Vitamin B6 -) 50 mg PO DAILY [facility] Last Admin: 09/24/17 10:06 Dose: 50 mg Sertraline HCl (Zoloft -) 25 mg PO DAILY [facility] Last Admin: 09/24/17 10:04 Dose: 25 mg Sucralfate (Carafate Oral Suspension -) 1 gm PO DAILY [facility] Last Admin: 09/24/17 10:04 Dose: 1 gm A/P Acute on Chronic Hypoxic Respiratory Failure 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
--- NOTE | 2017-09-26 09:19 | PN ---
Progress Note, Physician Chief Complaint: s/p VATS, afib History of Present Illness: per dtr, pt has been asleep and not rousable all day. had been very agitated past 1-2 days, not sleeping well at night. analgesic patch removed today. hasn't complained of cp (other than VATS related), sob, palpit, syncope when more alert - Current Medication List Current Medications: Active Medications Acetaminophen (Tylenol -) 650 mg PO Q4H PRN PRN Reason: FEVER Last Admin: 09/23/17 21:27 Dose: 650 mg Apixaban (Eliquis -) 2.5 mg PO BID [facility] Last Admin: 09/25/17 22:18 Dose: 2.5 mg Digoxin (Lanoxin -) 0.125 mg PO DAILY [facility] Last Admin: 09/25/17 10:44 Dose: 0.125 mg Diltiazem HCl (Cardizem Cd -) 180 mg PO DAILY [facility] Last Admin: 09/25/17 10:43 Dose: 180 mg Metoprolol Succinate (Toprol Xl -) 25 mg PO DAILY [facility] Last Admin: 09/25/17 10:45 Dose: 25 mg Morphine Sulfate (Morphine Sulfate) 2 mg IVPUSH Q3H PRN PRN Reason: PAIN LEVEL 6-10 Last Admin: 09/25/17 08:09 Dose: 2 mg Sertraline HCl (Zoloft -) 25 mg PO DAILY [facility] Last Admin: 09/25/17 10:46 Dose: 25 mg Sucralfate (Carafate Oral Suspension -) 1 gm PO DAILY [facility] Last Admin: 09/25/17 10:43 Dose: 1 gm - Objective Vital Signs: Vital Signs Temperature 97.1 F L 09/26/17 05:43 Pulse Rate 60 09/26/17 05:43 Respiratory Rate 20 09/26/17 05:43 Blood Pressure 113/46 09/26/17 05:43 O2 Sat by Pulse Oximetry (%) 96 09/25/17 21:00 Constitutional: Yes: Well Nourished, No Distress, Calm Cardiovascular: Yes: Pulse Irregular, S1, S2. No: JVD, Gallop, Murmur Respiratory: Yes: Regular, CTA Bilaterally (not deep breaths)). No: Rales, Wheezes Extremities: No: Cold Edema: No Neurological: No: Alert, Oriented, Seizure Psychiatric: No: Agitated Labs: CBC, BMP 09/25/17 05:30 09/25/17 05:30 INR, PTT INR 1.34 (0.83-1.09) 09/08/17 05:40 Assessment/Plan MIBI 05/21 ([facility]): no STs, minimal apical isch vs variable brst (small LV/hyper EF) Echo 05/2016 ([facility]): tds; nl lv, nl rv size, mild , mild mr, mild-mod tr; rvsp 40-50, mod ao root dil EKG 09/08/17 V paced tele: vp data Assessment/Plan 81 f hx afib, htn, hld, tachy/maricruz syndrome s/p ppm, copd, pad s/p rle bypass, possible cad (equivocal MIBI), chronic sob/briones/palps likely related to anxiety, esophageal ca s/p laser treatment, neuroendocrine small cell carcinoma of lung p /w shortness of breath now s/p VATS and pleur-x catheter placement with hypotension Hyperkalemia - resolved. no longer requires telemetry - ARB dc'ed HTN: -controlled on current meds, continue - valsartan dc'ed for hyperkalemia s/p PPM - last interrogated 07/2017 stable function Afib - dig, dilt, eliquis at home, continue - rates stable CAD - hx equivocal stress - on arb, statin at home, continue h/o HFPEF - euvolemic, urinary incontinence, holding lasix for now - ok for IVF if needed (pt not eating) PAD s/p bypass - continue ARB, statin lung cancer/malign effusion s/p VATS - per pulm, onc, thoracic surgery - not a candidate for chemo and pt does not want aggressive measures - for inpt hospice
[2017-09-26] MEDS: SUCRALFATE 1 GM/10 ML UNIT DOSE CUPS PO SCH (10:43)
[2017-09-26] MEDS: SERTRALINE HCL 25 MG TABLET (FP) PO SCH (10:44)
[2017-09-26] MEDS: APIXABAN 2.5 MG TABLET PO SCH ×2 (10:44→23:03)
[2017-09-26] MEDS: DIGOXIN 0.125 MG TABLET (FP) PO SCH (10:44)
[2017-09-26] MEDS: metoPROLOL SUCCINATE 25 MG TAB.SR.24H (FP) PO SCH (10:44)
--- NOTE | 2017-09-26 13:07 | PN ---
Progress Note (short form) - Note Progress Note: PULMONARY Remains short of breath appears mildly agitated Gen: more tachypneic Heart: RRR Lung: decreased breath sounds right base/drainage tube in place Abd: soft, nontender Ext: no edema meds/labs/images/notes reviewed Acetaminophen (Tylenol -) 650 mg PO Q4H PRN PRN Reason: FEVER Last Admin: 09/23/17 21:27 Dose: 650 mg Apixaban (Eliquis -) 2.5 mg PO BID [facility] Last Admin: 09/24/17 10:03 Dose: 2.5 mg Ascorbic Acid (Vitamin C -) 500 mg PO DAILY [facility] Last Admin: 09/24/17 10:03 Dose: 500 mg Cholecalciferol (Vitamin D3 -) 5,000 unit PO DAILY [facility] Last Admin: 09/24/17 10:03 Dose: 5,000 unit Cyanocobalamin (Vitamin B12 -) 1,000 mcg PO DAILY [facility] Last Admin: 09/24/17 10:03 Dose: 1,000 mcg Digoxin (Lanoxin -) 0.125 mg PO DAILY [facility] Last Admin: 09/24/17 11:12 Dose: 0.125 mg Diltiazem HCl (Cardizem Cd -) 180 mg PO DAILY [facility] Last Admin: 09/24/17 10:04 Dose: 180 mg Fentanyl (Duragesic 12mcg Patch -) 1 patch TD Q72H [facility] Stop: 09/25/17 09:27 Last Admin: 09/24/17 10:12 Dose: 1 patch Magnesium Oxide (Mag-Ox -) 400 mg PO BID [facility] Last Admin: 09/24/17 10:03 Dose: 400 mg Metoprolol Succinate (Toprol Xl -) 25 mg PO DAILY [facility] Last Admin: 09/24/17 10:04 Dose: 25 mg Miscellaneous (Duragesic Patch Waste) 1 each [facility] PRN PRN PRN Reason: PAIN Morphine Sulfate (Morphine Injection -) 2 mg IVPUSH Q3H PRN PRN Reason: PAIN LEVEL 6-10 Pyridoxine HCl (Vitamin B6 -) 50 mg PO DAILY [facility] Last Admin: 09/24/17 10:06 Dose: 50 mg Sertraline HCl (Zoloft -) 25 mg PO DAILY [facility] Last Admin: 09/24/17 10:04 Dose: 25 mg Sucralfate (Carafate Oral Suspension -) 1 gm PO DAILY [facility] Last Admin: 09/24/17 10:04 Dose: 1 gm A/P Acute on Chronic Hypoxic Respiratory Failure 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
[2017-09-26] MEDS: MORPHINE SULFATE 2 MG/ML VIAL IVPUSH PRN ×2 (13:25→17:27)
--- NOTE | 2017-09-26 13:50 | PN ---
Progress Note, Physician Chief Complaint: mild sOB and agitated - Current Medication List Current Medications: Active Medications Acetaminophen (Tylenol -) 650 mg PO Q4H PRN PRN Reason: FEVER Last Admin: 09/23/17 21:27 Dose: 650 mg Apixaban (Eliquis -) 2.5 mg PO BID [facility] Last Admin: 09/26/17 10:44 Dose: 2.5 mg Digoxin (Lanoxin -) 0.125 mg PO DAILY [facility] Last Admin: 09/26/17 10:44 Dose: 0.125 mg Diltiazem HCl (Cardizem Cd -) 180 mg PO DAILY [facility] Last Admin: 09/26/17 10:44 Dose: 180 mg Metoprolol Succinate (Toprol Xl -) 25 mg PO DAILY [facility] Last Admin: 09/26/17 10:44 Dose: 25 mg Morphine Sulfate (Morphine Sulfate) 2 mg IVPUSH Q3H PRN PRN Reason: PAIN LEVEL 6-10 Last Admin: 09/26/17 13:25 Dose: 2 mg Sertraline HCl (Zoloft -) 25 mg PO DAILY [facility] Last Admin: 09/26/17 10:44 Dose: 25 mg Sucralfate (Carafate Oral Suspension -) 1 gm PO DAILY [facility] Last Admin: 09/26/17 10:43 Dose: 1 gm - Objective Vital Signs: Vital Signs Temperature 98.2 F 09/26/17 10:00 Pulse Rate 69 09/26/17 10:44 Respiratory Rate 20 09/26/17 10:00 Blood Pressure 117/51 09/26/17 10:00 O2 Sat by Pulse Oximetry (%) 93 L 09/26/17 09:00 Constitutional: Sick looking milde distress HEENT: Mm moist anemia NECK: No JVD No Bruit Cardiovascular: S1S2 tachycardia Respiratory: S/p RT Chest Tube and VAT on RT Gastrointestinal: Non tender Bs + Neurological: Alert, Oriented Labs: CBC, BMP 09/25/17 05:30 09/25/17 05:30 INR, PTT INR 1.34 (0.83-1.09) 09/08/17 05:40 Problem List - Problems (1) Acute and chronic respiratory failure with hypoxia Assessment/Plan: Due to COPD and HFpEF, worsened with pleural effusion , s/p Chest tube, cont O2 inhalation. 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 Code(s): J90 - PLEURAL EFFUSION, NOT ELSEWHERE CLASSIFIED (3) Lung cancer Assessment/Plan: Small cell not a candiadte for chemo Code(s): C34.90 - MALIGNANT NEOPLASM OF UNSP PART OF UNSP BRONCHUS OR LUNG Qualifiers: Laterality: right Lung location: unspecified part of lung Qualified Code( s): C34.91 - Malignant neoplasm of unspecified part of right bronchus or lung (4) Atrial fibrillation Assessment/Plan: Rate controlled on Ac at home with Eliquis cont same Code(s): I48.91 - UNSPECIFIED ATRIAL FIBRILLATION Qualifiers: Atrial fibrillation type: chronic Qualified Code(s): I48.2 - Chronic atrial fibrillation (5) COPD (chronic obstructive pulmonary disease) Assessment/Plan: Cont O2 inhalation and nebs treatment Code(s): J44.9 - CHRONIC OBSTRUCTIVE PULMONARY DISEASE, UNSPECIFIED (6) Goals of care, counseling/discussion Assessment/Plan: awaiting for transfer to [facility] for comfort care Code(s): Z71.89 - OTHER SPECIFIED COUNSELING
[2017-09-27] MEDS ORDERED: DEXTROSE 50%-WATER 25 GM/50 ML DISP.SYRIN IVPUSH ONE (07:19)
[2017-09-27] MEDS ORDERED: SODIUM BICARBONATE 8.4% 50 MEQ/50 ML VIAL IVPUSH ONE (07:19)
[2017-09-27] MEDS ORDERED: ACETAMINOPHEN 325 MG TABLET (FP) PO PRN (07:19)
[2017-09-27] MEDS ORDERED: FENTANYL PATCH WASTE MC PRN (07:19)
[2017-09-27] MEDS ORDERED: INSULIN REGULAR HUMAN 100 UNITS/ML *VIAL IVPUSH ONE (07:19)
[2017-09-27] MEDS ORDERED: SUCRALFATE 1 GM/10 ML UNIT DOSE CUPS PO SCH (10:00)
[2017-09-27] MEDS ORDERED: metoPROLOL SUCCINATE 25 MG TAB.SR.24H (FP) PO SCH (10:00)
[2017-09-27] MEDS ORDERED: APIXABAN 2.5 MG TABLET PO SCH (10:00)
[2017-09-27] MEDS ORDERED: SERTRALINE HCL 25 MG TABLET (FP) PO SCH (10:00)
[2017-09-27] MEDS ORDERED: DIGOXIN 0.125 MG TABLET (FP) PO SCH (10:00)
[2017-09-27] MEDS: MORPHINE SULFATE 2 MG/ML VIAL IVPUSH PRN (10:02)
--- NOTE | 2017-09-27 10:28 | PN ---
Progress Note, Physician Chief Complaint: mild sOB and agitated - Current Medication List Current Medications: Active Medications Acetaminophen (Tylenol -) 650 mg PO Q4H PRN PRN Reason: FEVER Apixaban (Eliquis -) 2.5 mg PO BID [facility] Last Admin: 09/27/17 09:54 Dose: 2.5 mg Digoxin (Lanoxin -) 0.125 mg PO DAILY [facility] Last Admin: 09/27/17 09:54 Dose: 0.125 mg Diltiazem HCl (Cardizem Cd -) 180 mg PO DAILY [facility] Last Admin: 09/27/17 09:55 Dose: 180 mg Metoprolol Succinate (Toprol Xl -) 25 mg PO DAILY [facility] Last Admin: 09/27/17 09:55 Dose: 25 mg Miscellaneous (Duragesic Patch Waste) 1 each [facility] PRN PRN PRN Reason: PAIN Morphine Sulfate (Morphine Sulfate) 2 mg IVPUSH Q3H PRN PRN Reason: PAIN LEVEL 6-10 Last Admin: 09/27/17 10:02 Dose: 2 mg Sertraline HCl (Zoloft -) 25 mg PO DAILY [facility] Last Admin: 09/27/17 10:03 Dose: 25 mg Sucralfate (Carafate Oral Suspension -) 1 gm PO DAILY [facility] Last Admin: 09/27/17 09:54 Dose: 1 gm - Objective Vital Signs: Vital Signs Temperature 97.5 F L 09/27/17 07:55 Pulse Rate 72 09/27/17 09:54 Respiratory Rate 20 09/27/17 07:55 Blood Pressure 146/64 09/27/17 07:55 O2 Sat by Pulse Oximetry (%) 94 L 09/27/17 07:47 Constitutional: Sick looking milde distress HEENT: Mm moist anemia NECK: No JVD No Bruit Cardiovascular: S1S2 tachycardia Respiratory: S/p RT Chest Tube and VAT on RT Gastrointestinal: Non tender Bs + Neurological: Alert, Oriented Labs: CBC, BMP 09/25/17 05:30 09/25/17 05:30 INR, PTT INR 1.34 (0.83-1.09) 09/08/17 05:40 Problem List - Problems (1) Acute and chronic respiratory failure with hypoxia Assessment/Plan: Due to COPD and HFpEF, worsened with pleural effusion , s/p Chest tube, cont O2 inhalation. 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 Code(s): J90 - PLEURAL EFFUSION, NOT ELSEWHERE CLASSIFIED (3) Lung cancer Assessment/Plan: Small cell not a candiadte for chemo Code(s): C34.90 - MALIGNANT NEOPLASM OF UNSP PART OF UNSP BRONCHUS OR LUNG Qualifiers: Laterality: right Lung location: unspecified part of lung Qualified Code( s): C34.91 - Malignant neoplasm of unspecified part of right bronchus or lung (4) Atrial fibrillation Assessment/Plan: Rate controlled on Ac at home with Eliquis cont same Code(s): I48.91 - UNSPECIFIED ATRIAL FIBRILLATION Qualifiers: Atrial fibrillation type: chronic Qualified Code(s): I48.2 - Chronic atrial fibrillation (5) COPD (chronic obstructive pulmonary disease) Assessment/Plan: Cont O2 inhalation and nebs treatment Code(s): J44.9 - CHRONIC OBSTRUCTIVE PULMONARY DISEASE, UNSPECIFIED (6) Goals of care, counseling/discussion Assessment/Plan: awaiting [facility] transfer [facility] for comfort care
--- NOTE | 2017-09-27 12:19 | PN ---
Progress Note (short form) - Note Progress Note: PULMONARY Remains short of breath appears mildly agitated Gen: more tachypneic Heart: RRR Lung: decreased breath sounds right base/drainage tube in place Abd: soft, nontender Ext: no edema meds/labs/images/notes reviewed Acetaminophen (Tylenol -) 650 mg PO Q4H PRN PRN Reason: FEVER Last Admin: 09/23/17 21:27 Dose: 650 mg Apixaban (Eliquis -) 2.5 mg PO BID [facility] Last Admin: 09/24/17 10:03 Dose: 2.5 mg Ascorbic Acid (Vitamin C -) 500 mg PO DAILY [facility] Last Admin: 09/24/17 10:03 Dose: 500 mg Cholecalciferol (Vitamin D3 -) 5,000 unit PO DAILY [facility] Last Admin: 09/24/17 10:03 Dose: 5,000 unit Cyanocobalamin (Vitamin B12 -) 1,000 mcg PO DAILY [facility] Last Admin: 09/24/17 10:03 Dose: 1,000 mcg Digoxin (Lanoxin -) 0.125 mg PO DAILY [facility] Last Admin: 09/24/17 11:12 Dose: 0.125 mg Diltiazem HCl (Cardizem Cd -) 180 mg PO DAILY [facility] Last Admin: 09/24/17 10:04 Dose: 180 mg Fentanyl (Duragesic 12mcg Patch -) 1 patch TD Q72H [facility] Stop: 09/25/17 09:27 Last Admin: 09/24/17 10:12 Dose: 1 patch Magnesium Oxide (Mag-Ox -) 400 mg PO BID [facility] Last Admin: 09/24/17 10:03 Dose: 400 mg Metoprolol Succinate (Toprol Xl -) 25 mg PO DAILY [facility] Last Admin: 09/24/17 10:04 Dose: 25 mg Miscellaneous (Duragesic Patch Waste) 1 each MC PRN PRN PRN Reason: PAIN Morphine Sulfate (Morphine Injection -) 2 mg IVPUSH Q3H PRN PRN Reason: PAIN LEVEL 6-10 Pyridoxine HCl (Vitamin B6 -) 50 mg PO DAILY [facility] Last Admin: 09/24/17 10:06 Dose: 50 mg Sertraline HCl (Zoloft -) 25 mg PO DAILY [facility] Last Admin: 09/24/17 10:04 Dose: 25 mg Sucralfate (Carafate Oral Suspension -) 1 gm PO DAILY [facility] Last Admin: 09/24/17 10:04 Dose: 1 gm A/P Acute on Chronic Hypoxic Respiratory Failure 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
[2017-09-27 14:27] VITALS: BP 131/57; PULSE 63; TEMP 98.4
--- NOTE | 2017-09-27 16:30 | DS ---
Physical Examination Vital Signs: Vital Signs Temperature 98.4 F 09/27/17 14:26 Pulse Rate 63 09/27/17 14:26 Respiratory Rate 21 09/27/17 14:26 Blood Pressure 131/57 09/27/17 14:26 O2 Sat by Pulse Oximetry (%) 94 L 09/27/17 09:00 Constitutional: Sick looking milde distress HEENT: Mm moist anemia NECK: No JVD No Bruit Cardiovascular: S1S2 tachycardia Respiratory: S/p RT Chest Tube and VAT on RT Gastrointestinal: Non tender Bs + Neurological: Alert, Oriented Labs: CBC, BMP 09/25/17 05:30 09/25/17 05:30 Discharge Summary Reason For Visit: COPD,SEPSIS,LUNG CA BIPAP Hospital Course: 81 yrs old F with HTN, COPD Afib admitted with SOB and Rt sided malignant effusion , diagnosed advanced small cell CA Lung not a candidate for Chemotherapy patient and family opted for comfort care, patient underwenr VAT , Rt chest tube placement that improved symptoms, patient s being transfer to [facility] for Hospice care Condition: Guarded - Instructions Diet, Activity, Other Instructions: lasix at 20 qod on hosp discharge. Soft diet Activity as tolerated Plurex catheter care, keep clamped except draining time may drain as needed skin and mouth care Referrals: Maxim Larson MD [Primary Care Provider] - Disposition: DISCH TO HOSPICE-MED FACILITY - Home Medications Comprehensive Discharge Medication List: Ambulatory Orders Digoxin [Lanoxin -] 0.125 mg PO DAILY 05/09/17 Fluticasone/Vilanterol [Breo Ellipta 100-25 Mcg INH] 1 each IH DAILY 05/09/17 Sertraline HCl 25 mg PO DAILY 05/09/17 Metoprolol Succinate [Toprol XL -] 25 mg PO DAILY #30 tab.sr.24h 05/18/17 Albuterol Sulfate Inhaler - [Ventolin HFA Inhaler -] 1 - 2 inh PO PRN PRN Sucralfate [Carafate] 1 gm PO DAILY 07/15/17 Diltiazem Cd [Cardizem Cd -] 180 mg PO DAILY cap.cd.24h 09/27/17 Fentanyl Patch Waste [Duragesic Patch Waste] 1 each MC PRN PRN each 09/27/17 Metoprolol Succinate [Toprol XL -] 25 mg PO DAILY tab.sr.24h 09/27/17 Morphine Sulfate 2 mg IVPUSH Q3H PRN #10 vial MDD 4 09/27/17 Sertraline HCl [Zoloft -] 25 mg PO DAILY tablet 09/27/17 Sucralfate Oral Suspension [Carafate Oral Suspension -] 1 gm PO DAILY ml
== END 2017-09-27 15:42 | disposition hospice, inpatient (51) | DRG 166 ==
LOC: JER 05:03 → JERBED 09:37 → JICU 10:16 → J4S 09-10 16:46 → J7W 09-17 23:08 → J4W 09-21 13:03 → J8W 09-26 20:44
PROVIDERS: ADMIT Internal Medicine; ATTEND Internal Medicine
PROC: 5A09357 Assistance with Respiratory Ventilation, Less than 24 Consecutive Hours, Continuous Positive Airway Pressure (ICD-10-PCS; 2017-09-08)
PROC: 0W9940Z Drainage of Right Pleural Cavity with Drainage Device, Percutaneous Endoscopic Approach (ICD-10-PCS; principal; 2017-09-09 11:00)
DX: C34.91 Malignant neoplasm of unspecified part of right bronchus or lung (principal); A41.9 Sepsis, unspecified organism; J96.21 Acute and chronic respiratory failure with hypoxia; J15.8 Pneumonia due to other specified bacteria; J91.0 Malignant pleural effusion; J44.1 Chronic obstructive pulmonary disease with (acute) exacerbation; E87.2 Acidosis; J98.11 Atelectasis; I50.32 Chronic diastolic (congestive) heart failure; R64 Cachexia; J82 Pulmonary eosinophilia, not elsewhere classified; I11.0 Hypertensive heart disease with heart failure; R62.7 Adult failure to thrive; E87.5 Hyperkalemia; I48.0 Paroxysmal atrial fibrillation; J44.9 Chronic obstructive pulmonary disease, unspecified; Z91.19 Patient's noncompliance with other medical treatment and regimen; Z79.01 Long term (current) use of anticoagulants; I25.10 Atherosclerotic heart disease of native coronary artery without angina pectoris; K21.9 Gastro-esophageal reflux disease without esophagitis; Z87.11 Personal history of peptic ulcer disease; E78.5 Hyperlipidemia, unspecified; F41.9 Anxiety disorder, unspecified; Z99.81 Dependence on supplemental oxygen; Z95.0 Presence of cardiac pacemaker; Z87.891 Personal history of nicotine dependence; I73.9 Peripheral vascular disease, unspecified; Z68.20 Body mass index [BMI] 20.0-20.9, adult; K59.00 Constipation, unspecified; B37.9 Candidiasis, unspecified; I95.9 Hypotension, unspecified; M54.5 Low back pain; Z71.89 Other specified counseling
CPT/HCPCS: 36415; 36600; 71045-TC-FY; 71250-TC; 80048; 80053; 81003; 81015; 82150; 82375; 82550; 82803; 82945; 82962; 83050; 83605; 83615; 83735; 84100; 84157; 84311; 84484; 85025; 85027; 85610; 85730; 86850; 86900; 86901; 87040; 87070; 87075; 87086; 87102; 87116; 87205; 87206; 87210; 87305; 87449; 88108; 88305-TC; 88341-TC; 93005; 93010; 94660; 97116-GP; 97162-GP; 99285-25; J0131; J1644; J3465; J7030; J7620